=== PATIENT | male | born 1960 | race Two or more races ===

== ENCOUNTER 2020-07-18 09:20 | Emergency (ER) | payer MEDICARE, MEDICAID, SELFPAY ==
[2020-07-18 09:39] VITALS: BP 118/82; PULSE 101; RESP 20; TEMP 36.3; O2SAT 99; BMI 23.5
--- NOTE | 2020-07-18 10:42 | ED.ABDPAIN ---
HPI - Abdominal Pain General Chief Complaint: Abdominal Pain Stated Complaint: abd pain Time Seen by Provider: 07/18/20 10:42 Source: patient Mode of arrival: ambulatory Limitations: no limitations History of Present Illness MD elicited complaint: abdominal pain Pertinent past history: constipation Onset (ago): week(s) (3) Pain Consistency: intermittent Location: diffuse Severity: moderate Quality: cramping Radiation: none Migration to: no migration Exacerbating factors: nothing Relieving factors: nothing Context: other (has not had a good BM in 3 weeks) Associated symptoms: nausea Related Data Previous Rx's Medication Instructions Recorded lactulose 10 g PO DAILY PRN #237 ml 07/18/20 sennosides [senna] 8.6 mg PO BEDTIME PRN #30 cap 07/18/20 Allergies Allergy/AdvReac Type Severity Reaction Status Date / Time No Known Allergies Allergy Unverified 04/21/20 16:21 [No Known Allergies*] Review of Systems Review of Systems Constitutional : No Weight loss, No Fever, No Chills ENT/Mouth : No sore throat, No Rhinorrhea Eyes: No Swelling, No Redness Cardiovascular : No Chest Pain, No SOB, NoEdema Respiratory : No Cough, No Sputum, No Wheezing Gastrointestinal : Positive Nausea, no Vomiting, no Diarrhea, positive abdominal Pain, No Hematochezia, No Melena, pos constipation Genitourinary : No Dysuria, No Urinary Frequency, No Hematuria, No Urgency Musculoskeletal : No joint pain, No Myalgias, No Joint Swelling Skin : No Skin Lesions, No rash Neuro : No Weakness, No Numbness, No Dizziness, No Headache Psych : No Anxiety/Panic, No Depression Heme/Lymph: No Bruising, No Lymphadenopathy Endocrine : No Polyuria, No Polydipsia All other systems reviewed and are negative. Physical Exam Vital Signs: Vital Signs: Last Vital Signs Temp 97.4 F 07/18/20 09:39 Pulse 80 07/18/20 11:25 Resp 14 07/18/20 11:25 BP 100/59 L 07/18/20 11:25 Pulse Ox 98 07/18/20 11:25 Body Mass Index 23.5 Appearance: Alert. Oriented X3. No acute distress. Eyes: Pupils equal, round and reactive to light. ENT: Pharynx normal. Neck: Normal inspection. Neck supple. CVS: Normal heart rate and rhythm. Pulses normal. Respiratory: No respiratory distress. Breath sounds normal. Abdomen: Soft and non-tender. Skin: Skin warm and dry. Normal skin color. Normal skin turgor. Extremities: No lower extremity edema. No calf ttp Neuro: Oriented X 3. No motor deficit. No sensory deficit. Course Course Course Narrative: no WBC count no shift with pain on and off x 3 weeks no RLQ doubt appendicitis will treat with constipation medications MDM - Abdominal Pain MDM Narrative Medical decision making narrative: 59 yo male here with 3 weeks of intermittent abdominal pain and constipation overall exam is benign will need labs, UA, CT scan for constipation/obstruction, dispo per results and findings. Lab Data Result diagrams: 07/18/20 11:10 07/18/20 11:10 Labs: Lab Results 07/18/20 07/18/20 07/18/20 Range/Units 11:10 11:10 11:10 WBC 7.2 (4.8-10.8) X10*3/uL RBC 4.70 (4.60-5.80) X10*6/uL Hgb 13.5 L (14.0-18.0) g/dl Hct 41.9 L (42-52) % MCV 89.1 (80-98) fL MCH 28.7 (27.0-33.0) pg MCHC 32.2 (31.0-36.0) g/dl RDW 12.8 (11.0-16.0) % Plt Count 305 (160-400) X10*3/uL MPV 9.9 (9.4-12.4) fL Immature Gran % (Auto) 0.3 (0.0-0.4) % Neut % (Auto) 64.1 (45-73) % Lymph % (Auto) 21.1 (20-40) % Grainger % (Auto) 12.0 H (2-11) % Eos % (Auto) 2.1 (0-4) % Baso % (Auto) 0.4 (0-2) % Lymph # (Auto) 1.5 (1.2-4.9) X10*3/uL Grainger # (Auto) 0.9 (0.1-1.2) X10*3/uL Eos # (Auto) 0.2 (0.0-0.4) X10*3/uL Baso # (Auto) 0.0 (0.0-0.2) X10*3/uL Abs Immat Gran (auto) 0.02 (0.00-0.03) X10*3/uL Absolute Neuts (auto) 4.6 (2.0-8.3) X10*3/uL Absolute Nucleated RBC 0.000 (0.0-0.012) X10*3/uL Nucleated RBC % (auto) 0.0 (0.0-0.2) /100WBC Hold Blue Top SEE NOTE Sodium 140 (135-145) mmol/L Potassium 4.5 (3.3-5.1) mmol/l Chloride 105 (96-108) mmol/L Carbon Dioxide 27 (22-29) mmol/L Anion Gap 13 (12-20) BUN 12 (9-16) mg/dL Creatinine 0.78 (0.5-1.4) mg/dL Estim Creat Clear Calc 94.1 Estimated GFR > 60 Random Glucose 94 (60-115) mg/dL Calcium 9.6 (8.4-10.2) mg/dL Magnesium (1.6-2.6) mg/dL Total Bilirubin (0.0-1.0) mg/dL Direct Bilirubin (0.0-0.5) mg/dL AST (5-37) U/L ALT (0-40) U/L Alkaline Phosphatase (39-117) U/L Total Protein (6.5-8.0) g/dL Albumin (3.5-5.0) g/dL Lipase (8-78) U/L Urine Color Urine Appearance Urine pH (5.0-8.0) Ur Specific [place] (1.005-1.025) Urine Protein (NEG-TRACE) MG/DL Urine Glucose (UA) (NEG) MG/DL Urine Ketones (NEG) MG/DL Urine Blood (NEG) Urine Nitrite (NEG) Ur Leukocyte Esterase (NEG) Urine RBC (0) /HPF Urine WBC (0-4) /HPF Ur Squamous Epith Cells /LPF Urine Bacteria /LPF Urine Mucus /LPF 07/18/20 07/18/20 Range/Units 11:10 11:29 WBC (4.8-10.8) X10*3/uL RBC (4.60-5.80) X10*6/uL Hgb (14.0-18.0) g/dl Hct (42-52) % MCV (80-98) fL MCH (27.0-33.0) pg MCHC (31.0-36.0) g/dl RDW (11.0-16.0) % Plt Count (160-400) X10*3/uL MPV (9.4-12.4) fL Immature Gran % (Auto) (0.0-0.4) % Neut % (Auto) (45-73) % Lymph % (Auto) (20-40) % Grainger % (Auto) (2-11) % Eos % (Auto) (0-4) % Baso % (Auto) (0-2) % Lymph # (Auto) (1.2-4.9) X10*3/uL Grainger # (Auto) (0.1-1.2) X10*3/uL Eos # (Auto) (0.0-0.4) X10*3/uL Baso # (Auto) (0.0-0.2) X10*3/uL Abs Immat Gran (auto) (0.00-0.03) X10*3/uL Absolute Neuts (auto) (2.0-8.3) X10*3/uL Absolute Nucleated RBC (0.0-0.012) X10*3/uL Nucleated RBC % (auto) (0.0-0.2) /100WBC Hold Blue Top Sodium (135-145) mmol/L Potassium (3.3-5.1) mmol/l Chloride (96-108) mmol/L Carbon Dioxide (22-29) mmol/L Anion Gap (12-20) BUN (9-16) mg/dL Creatinine (0.5-1.4) mg/dL Estim Creat Clear Calc Estimated GFR Random Glucose (60-115) mg/dL Calcium (8.4-10.2) mg/dL Magnesium 1.9 (1.6-2.6) mg/dL Total Bilirubin 0.4 (0.0-1.0) mg/dL Direct Bilirubin < 0.2 (0.0-0.5) mg/dL AST 48 H (5-37) U/L ALT 69 H (0-40) U/L Alkaline Phosphatase 80 (39-117) U/L Total Protein 6.0 L (6.5-8.0) g/dL Albumin 3.4 L (3.5-5.0) g/dL Lipase 28 (8-78) U/L Urine Color YELLOW Urine Appearance CLEAR Urine pH 6.0 (5.0-8.0) Ur Specific [place] 1.025 (1.005-1.025) Urine Protein NEG (NEG-TRACE) MG/DL Urine Glucose (UA) NEG (NEG) MG/DL Urine Ketones NEG (NEG) MG/DL Urine Blood TRACE (NEG) Urine Nitrite NEG (NEG) Ur Leukocyte Esterase NEG (NEG) Urine RBC 0-2 (0) /HPF Urine WBC 0 (0-4) /HPF Ur Squamous Epith Cells NONE /LPF Urine Bacteria NONE /LPF Urine Mucus 2+ /LPF Discharge Plan Discharge Clinical Impression: Constipation Patient Disposition: Home, Self-Care Instructions: Constipation (ED) Additional Instructions: return to ED for any worsening symptoms or concerns Prescriptions: New lactulose 10 gram/15 mL solution 10 g PO DAILY PRN (Reason: constipation) Qty: 237 RF: 0 senna 8.6 mg capsule 8.6 mg PO BEDTIME PRN (Reason: constipation) Qty: 30 RF: 0 Referrals: Physician,Unknown [Primary Care Provider] - 2 days (PCP if not better) [facility] Past Medical History Attestation statement: The following information was validated with the patient. Medical History (Updated 07/18/20 @ 12:44 by Reina Pena DO) Asthma HTN (hypertension) Legally blind Social History Social History (Updated 07/18/20 @ 10:58 by Reina Pena DO) Smoking Status: Current every day smoker Use of substances other than those prescribed or required for medical reasons: No Advance Directives: No Advance Directives Information Provided: Yes
--- NOTE | 2020-07-18 10:50 | CT_ITS ---
EXAMINATION: CT ABDOMEN AND PELVIS WITHOUT CONTRAST CLINICAL INFORMATION: Pain, constipation 3 weeks. COMPARISON: Ultrasound 11/09/2008. TECHNIQUE: Multidetector volumetric imaging was performed from the superior aspect of the liver through the pubic symphysis. Sagittal and coronal reformatted images were obtained on the technologist's workstation. This CT examination was performed using dose optimization techniques as appropriate, variously including the following: *Automated exposure control *Adjustment of mA and/or kV according to patient size (this includes techniques or standardized protocols for targeted exams where dose is matched to indication/reason for exam; i.e. extremities or head) *Use of iterative reconstruction technique DLP: 375 mGy-cm. FINDINGS: LUNG BASES: The visualized lung bases are unremarkable. LIVER, GALLBLADDER, AND BILIARY TREE: No focal lesions. No biliary duct dilatation. Gallbladder appears unremarkable. PANCREAS: Unremarkable. No acute inflammatory changes seen. SPLEEN: Unremarkable. ADRENAL GLANDS: Unremarkable. KIDNEYS AND URETERS: No renal or ureteral calculi. No hydronephrosis. No suspicious lesion seen. BLADDER: Slightly diffuse thick wall. Underdistended. GASTROINTESTINAL TRACT: There is diverticulosis of the descending and sigmoid colon. No definite findings to suggest diverticulitis. The stomach is nondistended. No dilated small bowel loops seen. No evidence of bowel obstruction. There is yypjc-rl-fkknrvdg fecal matter in the large colon. The appendix is coiled, measuring approximately 6 mm in thickness, without obvious inflammatory changes evident. No free fluid. No free air. ABDOMINAL WALL: No significant hernia is appreciated. LYMPH NODES: No lymphadenopathy seen. VASCULAR: Normal caliber aorta. PELVIC VISCERA: Enlarged prostate measuring 5.5 cm transverse. OSSEOUS STRUCTURES: Thoracolumbar spine degeneration. CT/CT abdomen pelvis wo con IMPRESSION: 1. Colonic diverticulosis without evidence of diverticulitis. Estru-ib-wbjkqiep fecal matter in the large colon. 2. Mild diffuse urinary bladder wall thickening, which could be related to underdistention. Correlate with urinalysis to exclude cystitis. 3. Appendix is top normal in thickness without obvious adjacent inflammatory changes. Please clinically correlate. 4. No acute findings otherwise evident in the abdomen or pelvis. 5. Enlarged prostate.
[2020-07-18 11:18] LABS: MANUAL DIFF FLAG NO
[2020-07-18 11:20] LABS: Basophils Percent Auto 0.4 % (0-2); Eosinophils Absolute Auto 0.2 X10*3/uL (0.0-0.4); Eosinophils Percent Auto 2.1 % (0-4); Hematocrit 41.9 % (42-52); Hemoglobin 13.5 g/dl (14.0-18.0); Imm Gran Abs Auto 0.02 X10*3/uL (0.00-0.03); Imm Gran Pct Auto 0.3 % (0.0-0.4); Lymphocytes Absolute Auto 1.5 X10*3/uL (1.2-4.9); Lymphocytes Percent Auto 21.1 % (20-40); Mean Corpuscular HGB Conc 32.2 g/dl (31.0-36.0); Mean Corpuscular Hemoglobin 28.7 pg (27.0-33.0); Mean Corpuscular Volume 89.1 fL (80-98); Mean Platelet Volume 9.9 fL (9.4-12.4); Monocytes Absolute Auto 0.9 X10*3/uL (0.1-1.2); Neutrophils Absolute Auto 4.6 X10*3/uL (2.0-8.3); Neutrophils Percent Auto 64.1 % (45-73); Platelet Count 305 X10*3/uL (160-400); Red Cell Distribution Width 12.8 % (11.0-16.0); White Blood Count 7.2 X10*3/uL (4.8-10.8)
[2020-07-18 11:25] VITALS: BP 100/59; PULSE 80; RESP 14; O2SAT 98
[2020-07-18 11:46] LABS: Glucose Urine UA NEG (NEG); Leukocyte Esterase Urine NEG (NEG); Nitrite Urine NEG (NEG); Specific Gravity - Urine 1.025 (1.005-1.025); Urine Blood TRACE (NEG); Urine Ketones NEG (NEG); Urine Protein NEG (NEG-TRACE)
[2020-07-18 11:49] LABS: Anion Gap 13 (12-20); Blood Urea Nitrogen 12 mg/dL (9-16); Calcium 9.6 mg/dL (8.4-10.2); Carbon Dioxide 27 mmol/L (22-29); Chloride 105 mmol/L (96-108); Creatinine Clr Calc Pharmacy 94.1; Estimated Glomerular Filt Rate > 60; Glucose Random 94 mg/dL (60-115); Potassium 4.5 mmol/l (3.3-5.1); Sodium 140 mmol/L (135-145)
[2020-07-18 11:51] LABS: Appearance Urine CLEAR; Color Urine YELLOW
[2020-07-18 12:01] LABS: RBC Urine 0-2 /HPF (0); WBC Urine 0 /HPF (0-4)
[2020-07-18 12:02] LABS: Mucus Urine 2+ /LPF
[2020-07-18 12:02] LABS: Alanine Aminotransferase 69 U/L (0-40); Albumin Level 3.4 g/dL (3.5-5.0); Alkaline Phosphatase 80 U/L (39-117); Aspartate Amino Transferase 48 U/L (5-37); Bilirubin Direct < 0.2 mg/dL (0.0-0.5); Bilirubin Total 0.4 mg/dL (0.0-1.0); Lipase 28 U/L (8-78); Magnesium 1.9 mg/dL (1.6-2.6)
[2020-07-18 13:04] VITALS: BP 144/79; PULSE 68; RESP 19; O2SAT 99
== END 2020-07-18 13:35 | disposition home or self-care (01) ==
PROVIDERS: Emergency Provider Emergency Medicine
DX: K59.00 Constipation, unspecified (principal); I10 Essential (primary) hypertension; Z79.899 Other long term (current) drug therapy
CPT/HCPCS: 36415; 74176; 80048; 80076; 81001; 83690; 83735; 85025; 99283; 99284

== ENCOUNTER 2020-09-23 15:37 | Emergency (ER) | payer MEDICARE, MEDICAID, SELFPAY ==
--- NOTE | ~2020-09-23 | CT_ITS ---
EXAMINATION: CT ABDOMEN AND PELVIS WITH CONTRAST CLINICAL INFORMATION: Diffuse abdominal pain COMPARISON: 07/18/2020 TECHNIQUE: Multidetector volumetric images were obtained from the superior aspect of the liver through the pubic symphysis following administration 85 mL of Omnipaque 350 intravenous contrast. Sagittal and coronal reformatted images were obtained on the technologist's workstation. Oral contrast: No This CT examination was performed using dose optimization techniques as appropriate, variously including the following: *Automated exposure control *Adjustment of mA and/or kV according to patient size (this includes techniques or standardized protocols for targeted exams where dose is matched to indication/reason for exam; i.e. extremities or head) *Use of iterative reconstruction technique DLP: 341 mGy-cm FINDINGS: LUNG BASES: The visualized lung bases are unremarkable. LIVER, GALLBLADDER, AND BILIARY TREE: The liver is normal in size, shape, and attenuation. No focal hepatic lesion or biliary ductal dilatation is present. The gallbladder is unremarkable with no evidence of radiopaque gallstones, gallbladder wall thickening, or obvious pericholecystic inflammatory changes. A phrygian cap is present. PANCREAS: Unremarkable. SPLEEN: Unremarkable. ADRENAL GLANDS: Unremarkable. KIDNEYS AND URETERS: The kidneys are normal in size, shape, and attenuation. No hydronephrosis, hydroureter, or calculi seen. No perinephric stranding. BLADDER: Symmetric bladder wall thickening may be secondary to outlet obstruction. GASTROINTESTINAL TRACT: There is diffuse gastric wall thickening similar to that noted at the time of the prior CT scan which is probably secondary to underdistention. Diverticular changes are present in the colon without diverticulitis. The small and large bowel are otherwise unremarkable. The appendix is unremarkable. ABDOMINAL WALL: No significant hernia is appreciated. LYMPH NODES: No retroperitoneal lymphadenopathy seen. VASCULAR: Atherosclerotic changes present in the abdominal aorta with calcified and noncalcified plaque. No aneurysm, dissection or stenosis. PELVIC VISCERA: Prostate is markedly enlarged measuring 5.7 x 5.2 x 6.2 cm. Seminal vesicles appear normal. OSSEOUS STRUCTURES: Degenerative changes present in the spine most marked at L5-S1. No bony destructive lesions are seen. CT/CT abdomen pelvis w con IMPRESSION: A cause for the patient's diffuse acute abdominal pain has not been found. Incidental note made of BPH with symmetric bladder wall thickening, colonic diverticulosis without diverticulitis, degenerative changes in the spine and mild atherosclerotic changes present in the aorta.
[2020-09-23 15:43] VITALS: BP 140/82; PULSE 105; RESP 19; TEMP 36.6; O2SAT 99; BMI 23.5
--- NOTE | 2020-09-23 15:59 | ED_ITS ---
HPI - Abdominal Pain General Chief Complaint: Abdominal Pain Stated Complaint: nausea vomiting COVID Time Seen by Provider: 09/23/20 15:48 Source: patient Mode of arrival: ambulatory History of Present Illness HPI narrative: 60-year-old male with a past medical history of asthma, hypertension, legally blind, complaining of epigastric abdominal pain since this morning with associated nausea and vomiting. Admits to similar symptoms in the past in which he was seen and treated in the ED. admits symptoms improved after prior visit in July but returned today. Reports was in contact with COVID- 19 positive infant a couple weeks ago, denies cough, CP/SOB. Denies diarrhea/constipation, dysuria/hematuria, fever MD elicited complaint: abdominal pain Related Data Previous Rx's Medication Instructions Recorded lactulose 10 g PO DAILY PRN #237 ml 07/18/20 sennosides [senna] 8.6 mg PO BEDTIME PRN #30 cap 07/18/20 alum-mag hydroxide-simeth [Maalox 5 ml PO 5XD PRN #30 ml 09/23/20 Advanced] dicyclomine 10 mg PO QID 7 Days #28 cap 09/23/20 famotidine [Pepcid] 20 mg PO DAILY #14 tab 09/23/20 Allergies Allergy/AdvReac Type Severity Reaction Status Date / Time No Known Allergies Allergy Unverified 04/21/20 16:21 [No Known Allergies*] Review of Systems Review of Systems Constitutional: No Weight loss, No Fever, No Chills Cardiovascular: No Chest Pain, No SOB Respiratory: No Cough Gastrointestinal: + Nausea, + Vomiting, No Diarrhea, No Constipation, + Abdominal pain Genitourinary: No irregular bleeding, No Dysuria, No Urinary Frequency, No Hematuria, No Flank Pain Musculoskeletal: No joint pain, No Myalgias, No Joint Swelling Skin: No Skin Lesions, No rash Yes all other systems are reviewed and are negative Physical Exam Vital Signs: Vital Signs: Last Vital Signs Temp 97.8 F 09/23/20 20:00 Pulse 87 09/23/20 20:00 Resp 21 H 09/23/20 20:00 BP 105/57 L 09/23/20 20:00 Pulse Ox 98 09/23/20 20:00 Body Mass Index 23.5 Const: General: cooperative, healthy appearing, comfortable, no acute distress and anxious Orientation/consciousness: patient oriented x3 Limitations: no limitations HENMT: Head: Yes normal to inspection Ears: hearing grossly normal bilaterally General nose exam: Normal external nose present Face and sinus: Yes normal facial exam Eyes: General: appearance normal, both eyes and all related structures EOM: EOMs intact bilaterally Neck: Neck: Yes normal visual inspection Resp: Effort & Inspection: normal respiratory effort Auscultation: clear to auscultation bilaterally, no rales, no rhonchi and no wheezes Cardio: Rate: regular rate Heart sounds: S1 normal heart sound present and S2 normal heart sound present GI: Inspection: Yes normal to inspection Palpation (GI): Soft to palpation, Tenderness to palpation present (GI) in the epigastrum, in the LLQ and in the RLQ, no guarding and not rigid : General: Yes no CVA tenderness Back/Spine/Pelvis: Back: no CVA tenderness Skin: Rashes: no rashes Wounds: no wounds Neuro: General: patient oriented x3 Extrem: General: Yes normal to inspection Course Course Course Narrative: -no leukocytosis, H&H stable, labs otherwise unremarkable, UA negative -COVID-[address] abdomen pelvis w con IMPRESSION: A cause for the patient's diffuse acute abdominal pain has not been found. Incidental note made of BPH with symmetric bladder wall thickening, colonic diverticulosis without diverticulitis, degenerative changes in the spine and mild atherosclerotic changes present in the aorta. >> 2057--on re-evaluation patient reports symptomatic improvement in the ED. Results discussed. Discussed worrisome signs and symptoms and strict return precautions. Recommended GI follow-up. He verbalized understanding feel safe for discharge home MDM - Abdominal Pain MDM Narrative Medical decision making narrative: 60-year-old male with a past medical history of asthma, hypertension, legally blind, complaining of epigastric abdominal pain since this morning with associated nausea and vomiting. On mildly tachycardic, NAD/nontoxic, abdomen soft diffusely tender, no rebound or guarding. Labs/CT reviewed from July where pt was Dx with constipation. Concern for pancreatitis vs cholecystitis vs appendicitis or diverticulitis. Lower concern for UTI/pyelo or renal stone. Lower concern for COVID-19/viral syndrome or PNA Plan: Labs, UA, CTAP, Sx Tx, Reassess Medical Records Attestation: I reviewed the patient's medical records. Lab Data Attestation: I reviewed the patient's lab results. Result diagrams: 09/23/20 16:34 09/23/20 16:34 Labs: Lab Results 09/23/20 09/23/20 09/23/20 Range/Units 16:34 16:34 16:34 WBC 7.9 (4.8-10.8) X10*3/uL RBC 4.53 L (4.60-5.80) X10*6/uL Hgb 12.8 L (14.0-18.0) g/dl Hct 39.0 L (42-52) % MCV 86.1 (80-98) fL MCH 28.3 (27.0-33.0) pg MCHC 32.8 (31.0-36.0) g/dl RDW 13.6 (11.0-16.0) % Plt Count 317 (160-400) X10*3/uL MPV 9.6 (9.4-12.4) fL Immature Gran % (Auto) 0.3 (0.0-0.4) % Neut % (Auto) 72.2 (45-73) % Lymph % (Auto) 15.5 L (20-40) % Harney % (Auto) 10.6 (2-11) % Eos % (Auto) 1.0 (0-4) % Baso % (Auto) 0.4 (0-2) % Lymph # (Auto) 1.2 (1.2-4.9) X10*3/uL Harney # (Auto) 0.8 (0.1-1.2) X10*3/uL Eos # (Auto) 0.1 (0.0-0.4) X10*3/uL Baso # (Auto) 0.0 (0.0-0.2) X10*3/uL Abs Immat Gran (auto) 0.02 (0.00-0.03) X10*3/uL Absolute Neuts (auto) 5.7 (2.0-8.3) X10*3/uL Absolute Nucleated RBC 0.000 (0.0-0.012) X10*3/uL Nucleated RBC % (auto) 0.0 (0.0-0.2) /100WBC Hold Blue Top SEE NOTE Sodium 138 (135-145) mmol/L Potassium 4.1 (3.3-5.1) mmol/L Chloride 106 (96-108) mmol/L Carbon Dioxide 22 (22-29) mmol/L Anion Gap 14 (12-20) BUN 13 (9-16) mg/dL Creatinine 0.70 (0.5-1.4) mg/dL Estim Creat Clear Calc 103.6 Estimated GFR > 60 Random Glucose 88 (60-115) mg/dL Calcium 8.5 D (8.4-10.2) mg/dL Magnesium 1.7 (1.6-2.6) mg/dL Total Bilirubin 0.6 (0.0-1.0) mg/dL Direct Bilirubin 0.3 (0.0-0.5) mg/dL AST 22 D (5-37) U/L ALT 24 (0-40) U/L Alkaline Phosphatase 74 (39-117) U/L Total Protein 4.9 L (6.5-8.0) g/dL Albumin 3.0 L (3.5-5.0) g/dL Lipase 24 (8-78) U/L Urine Color Urine Appearance Urine pH (5.0-8.0) Ur Specific [place] (1.005-1.025) Urine Protein (NEG-TRACE) MG/DL Urine Glucose (UA) (NEG) MG/DL Urine Ketones (NEG) MG/DL Urine Blood (NEG) Urine Nitrite (NEG) Ur Leukocyte Esterase (NEG) Urine RBC (0) /HPF Urine WBC (0-4) /HPF Ur Squamous Epith Cells /LPF Urine Bacteria /LPF Hyaline Casts /LPF Urine Mucus /LPF Urine Opiates Screen (Not Detect) Ur Barbiturates Screen (Not Detect) Ur Phencyclidine Scrn (Not Detect) Ur Amphetamines Screen (Not Detect) U Benzodiazepines Scrn (Not Detect) Urine Cocaine Screen (Not Detect) U Marijuana (THC) Screen (Not Detect) COVID-19 (TRU) (Negative) COVID-19 Clin Com 09/23/20 09/23/20 09/23/20 Range/Units 16:34 17:46 17:46 WBC (4.8-10.8) X10*3/uL RBC (4.60-5.80) X10*6/uL Hgb (14.0-18.0) g/dl Hct (42-52) % MCV (80-98) fL MCH (27.0-33.0) pg MCHC (31.0-36.0) g/dl RDW (11.0-16.0) % Plt Count (160-400) X10*3/uL MPV (9.4-12.4) fL Immature Gran % (Auto) (0.0-0.4) % Neut % (Auto) (45-73) % Lymph % (Auto) (20-40) % Harney % (Auto) (2-11) % Eos % (Auto) (0-4) % Baso % (Auto) (0-2) % Lymph # (Auto) (1.2-4.9) X10*3/uL Harney # (Auto) (0.1-1.2) X10*3/uL Eos # (Auto) (0.0-0.4) X10*3/uL Baso # (Auto) (0.0-0.2) X10*3/uL Abs Immat Gran (auto) (0.00-0.03) X10*3/uL Absolute Neuts (auto) (2.0-8.3) X10*3/uL Absolute Nucleated RBC (0.0-0.012) X10*3/uL Nucleated RBC % (auto) (0.0-0.2) /100WBC Hold Blue Top Sodium (135-145) mmol/L Potassium (3.3-5.1) mmol/L Chloride (96-108) mmol/L Carbon Dioxide (22-29) mmol/L Anion Gap (12-20) BUN (9-16) mg/dL Creatinine (0.5-1.4) mg/dL Estim Creat Clear Calc Estimated GFR Random Glucose (60-115) mg/dL Calcium (8.4-10.2) mg/dL Magnesium (1.6-2.6) mg/dL Total Bilirubin (0.0-1.0) mg/dL Direct Bilirubin (0.0-0.5) mg/dL AST (5-37) U/L ALT (0-40) U/L Alkaline Phosphatase (39-117) U/L Total Protein (6.5-8.0) g/dL Albumin (3.5-5.0) g/dL Lipase (8-78) U/L Urine Color YELLOW Urine Appearance CLEAR Urine pH 6.0 (5.0-8.0) Ur Specific [place] 1.020 (1.005-1.025) Urine Protein NEG (NEG-TRACE) MG/DL Urine Glucose (UA) NEG (NEG) MG/DL Urine Ketones 5 (NEG) MG/DL Urine Blood TRACE (NEG) Urine Nitrite NEG (NEG) Ur Leukocyte Esterase NEG (NEG) Urine RBC 0-2 (0) /HPF Urine WBC 0 (0-4) /HPF Ur Squamous Epith Cells NONE /LPF Urine Bacteria NONE /LPF Hyaline Casts 1-4 /LPF Urine Mucus 1+ /LPF Urine Opiates Screen Not Detected (Not Detect) Ur Barbiturates Screen Not Detected (Not Detect) Ur Phencyclidine Scrn Not Detected (Not Detect) Ur Amphetamines Screen Not Detected (Not Detect) U Benzodiazepines Scrn Not Detected (Not Detect) Urine Cocaine Screen Not Detected (Not Detect) U Marijuana (THC) Screen Not Detected (Not Detect) COVID-19 (TRU) Negative (Negative) COVID-19 Clin Com See Note Discharge Plan Discharge Clinical Impression: Abdominal pain Patient Disposition: Home, Self-Care Instructions: Abdominal Pain (ED) Additional Instructions: Your blood work and CT scan were reassuring today in the ED. Pepcid and Maalox will help with acid reduction in your stomach. Bentyl well help with stomach spasming Make sure you are staying hydrated at home. You should follow-up with a GI specialist If her symptoms persist or worsen, fever, persistent nausea/vomiting, bloody diarrhea return to the ED Prescriptions: New famotidine [Pepcid] 20 mg tablet 20 mg PO DAILY Qty: 14 RF: 0 alum-mag hydroxide-simeth [Maalox Advanced] 200-200-20 mg/5 mL suspension 5 ml PO 5XD PRN (Reason: dyspepsia) Qty: 30 RF: 0 dicyclomine 10 mg capsule 10 mg PO QID 7 Days Qty: 28 RF: 0 No Action lactulose 10 gram/15 mL solution 10 g PO DAILY PRN (Reason: constipation) Qty: 237 RF: 0 senna 8.6 mg capsule 8.6 mg PO BEDTIME PRN (Reason: constipation) Qty: 30 RF: 0 Referrals: Heather Carvajal MD [Physician] - 5 days [facility] Past Medical History Attestation statement: The following information was validated with the patient. Medical History (Updated 09/23/20 @ 20:59 by JOANNA Melendez) Asthma HTN (hypertension) Legally blind Social History Social History (Updated 07/18/20 @ 10:58 by Reina Pena DO) Smoking Status: Current every day smoker Smoked in Last 30 Days: Yes Use of substances other than those prescribed or required for medical reasons: No Advance Directives: No Advance Directives Information Provided: Yes
[2020-09-23] MEDS: Ketorolac Tromethamine 15 MG/ML VIAL IVPUSH (16:40)
[2020-09-23] MEDS: 0.9 % Sodium Chloride 1,000 ML 999 ML IVCONT (16:40)
[2020-09-23] MEDS: ondansetron HCL 4 MG/2 ML VIAL IVPUSH (16:40)
[2020-09-23] MEDS: Lidocaine HCl Viscous 2 % 15 ML SOLUTION MUCOUS MEM (16:40)
[2020-09-23 16:42] LABS: MANUAL DIFF FLAG NO
[2020-09-23 16:43] LABS: Basophils Percent Auto 0.4 % (0-2); Eosinophils Absolute Auto 0.1 X10*3/uL (0.0-0.4); Hemoglobin 12.8 g/dl (14.0-18.0); Imm Gran Abs Auto 0.02 X10*3/uL (0.00-0.03); Imm Gran Pct Auto 0.3 % (0.0-0.4); Lymphocytes Absolute Auto 1.2 X10*3/uL (1.2-4.9); Lymphocytes Percent Auto 15.5 % (20-40); Mean Corpuscular HGB Conc 32.8 g/dl (31.0-36.0); Mean Corpuscular Hemoglobin 28.3 pg (27.0-33.0); Mean Corpuscular Volume 86.1 fL (80-98); Mean Platelet Volume 9.6 fL (9.4-12.4); Monocytes Absolute Auto 0.8 X10*3/uL (0.1-1.2); Monocytes Percent Auto 10.6 % (2-11); Neutrophils Absolute Auto 5.7 X10*3/uL (2.0-8.3); Neutrophils Percent Auto 72.2 % (45-73); Platelet Count 317 X10*3/uL (160-400); Red Blood Count 4.53 X10*6/uL (4.60-5.80); Red Cell Distribution Width 13.6 % (11.0-16.0); White Blood Count 7.9 X10*3/uL (4.8-10.8)
[2020-09-23] MEDS: Famotidine/PF 20 MG/2 ML VIAL IVPUSH (16:47)
[2020-09-23 17:01] LABS: COVID-19 Test Negative (Negative); IDNOW Serial# 9DD0AD1C
[2020-09-23 17:24] VITALS: BP 109/56; PULSE 93; RESP 21; O2SAT 99
[2020-09-23 17:59] LABS: Glucose Urine UA NEG (NEG); Leukocyte Esterase Urine NEG (NEG); Nitrite Urine NEG (NEG); Urine Blood TRACE (NEG); Urine Ketones 5 MG/DL (NEG); Urine Protein NEG (NEG-TRACE)
[2020-09-23 18:01] LABS: Appearance Urine CLEAR; Color Urine YELLOW
[2020-09-23 18:23] LABS: Mucus Urine 1+ /LPF; RBC Urine 0-2 /HPF (0); WBC Urine 0 /HPF (0-4)
[2020-09-23 18:25] LABS: Amphetamine Screen Urine Not Detected (Not Detect); Barbiturates, Urine Not Detected (Not Detect); Benzodiazepines Screen Urine Not Detected (Not Detect); Cannabinoid Screen Urine Not Detected (Not Detect); Cocaine Screen Urine Not Detected (Not Detect); Opiate Screen Urine Not Detected (Not Detect); Phencyclidine Screen Urine Not Detected (Not Detect)
[2020-09-23 18:34] LABS: Alanine Aminotransferase 24 U/L (0-40); Alkaline Phosphatase 74 U/L (39-117); Anion Gap 14 (12-20); Aspartate Amino Transferase 22 U/L (5-37); Bilirubin Direct 0.3 mg/dL (0.0-0.5); Bilirubin Total 0.6 mg/dL (0.0-1.0); Blood Urea Nitrogen 13 mg/dL (9-16); Calcium 8.5 mg/dL (8.4-10.2); Carbon Dioxide 22 mmol/L (22-29); Chloride 106 mmol/L (96-108); Creatinine Clr Calc Pharmacy 103.6; Estimated Glomerular Filt Rate > 60; Glucose Random 88 mg/dL (60-115); Lipase 24 U/L (8-78); Magnesium 1.7 mg/dL (1.6-2.6); Potassium 4.1 mmol/L (3.3-5.1); Sodium 138 mmol/L (135-145); Total Protein 4.9 g/dL (6.5-8.0)
[2020-09-23 20:00] VITALS: BP 105/57; PULSE 87; RESP 21; TEMP 36.6; O2SAT 98
[2020-09-23] MEDS: iohexoL 350 MG/ML 100 ML INFUS..BTL IV (20:26)
[2020-09-23 22:00] VITALS: BP 120/74; PULSE 84; RESP 16; TEMP 36.6; O2SAT 99
--- NOTE | 2020-09-23 22:11 | PC.NURSE ---
Spoke with Randall (caregiver) on phone at [phone]. To be picked up by Randall within next 10 minutes approximately.
== END 2020-09-23 22:54 | disposition home or self-care (01) ==
PROVIDERS: Physician Assistant; Emergency Provider Internal Medicine
DX: R10.9 Unspecified abdominal pain (principal); R11.2 Nausea with vomiting, unspecified; Z79.899 Other long term (current) drug therapy; Z20.822 Contact with and (suspected) exposure to COVID-19; F17.200 Nicotine dependence, unspecified, uncomplicated; Z71.6 Tobacco abuse counseling
CPT/HCPCS: 36415; 74177; 80048; 80076; 80307; 81001; 83690; 83735; 85025; 87635; 96361; 96374; 96375; 99284; J1885; J2405; Q9967

== ENCOUNTER 2022-02-27 09:16 | Outpatient (REF) | payer MEDICARE, MEDICAID, SELFPAY ==
[2022-02-27 11:35] LABS: MANUAL DIFF FLAG NO
[2022-02-27 11:42] LABS: Basophils Percent Auto 0.7 % (0-2); Eosinophils Absolute Auto 0.2 X10*3/uL (0.0-0.4); Eosinophils Percent Auto 4.1 % (0-4); Hematocrit 41.7 % (42.0-52.0); Hemoglobin 13.7 g/dl (14.0-18.0); Imm Gran Abs Auto 0.01 X10*3/uL (0.00-0.03); Imm Gran Pct Auto 0.2 % (0.0-0.4); Lymphocytes Percent Auto 34.8 % (20-40); Mean Corpuscular HGB Conc 32.9 g/dl (31.0-36.0); Mean Corpuscular Hemoglobin 30.1 pg (27.0-33.0); Mean Corpuscular Volume 91.6 fL (80.0-98.0); Monocytes Absolute Auto 0.7 X10*3/uL (0.1-1.2); Monocytes Percent Auto 12.3 % (2-11); Neutrophils Absolute Auto 2.8 x10*3/uL (2.0-8.3); Neutrophils Percent Auto 47.9 % (45-73); Platelet Count 327 X10*3/uL (160-400); Red Blood Count 4.55 X10*6/uL (4.60-5.80); Red Cell Distribution Width 12.6 % (11.0-16.0); White Blood Count 5.9 X10*3/uL (4.8-10.8)
[2022-02-27 12:11] LABS: Alanine Aminotransferase 24 U/L (0-40); Albumin Level 4.3 g/dL (3.5-5.0); Alkaline Phosphatase 88 U/L (39-117); Anion Gap 11 (12-20); Aspartate Amino Transferase 17 U/L (5-37); Bilirubin Total 0.4 mg/dL (0.0-1.0); Blood Urea Nitrogen 15 mg/dL (9-16); Calcium 9.7 mg/dL (8.4-10.2); Carbon Dioxide 28 mmol/L (22-29); Chloride 107 mmol/L (96-108); Cholesterol 169 mg/dL; Estimated Glomerular Filt Rate > 60; Glucose Fasting 91 mg/dL (60-99); HDL Cholesterol 37 mg/dL; LDL Cholesterol Calculated 118 mg/dl; Potassium 4.7 mmol/L (3.3-5.1); Sodium 141 mmol/L (135-145); Total Protein 6.8 g/dL (6.5-8.0); Triglycerides 71 mg/dL
[2022-02-27 12:12] LABS: TSH reflex Free T4 < 0.01 uIU/mL (0.32-4.0)
[2022-03-04 13:01] LABS: Vitamin D 25-OH, D2 <4 ng/mL; Vitamin D 25-OH, D3 19 ng/mL; Vitamin D 25-OH, Total 19 ng/mL (30-100)
== END 2022-02-27 09:17 | disposition home or self-care (01) ==
LOC: HO.HMGCLDS 09:16
PROVIDERS: PCP Internal Medicine; Visit Provider Internal Medicine
DX: E05.90 Thyrotoxicosis, unspecified without thyrotoxic crisis or storm (principal); H54.8 Legal blindness, as defined in USA; I10 Essential (primary) hypertension; J45.20 Mild intermittent asthma, uncomplicated; R00.2 Palpitations; Z76.89 Persons encountering health services in other specified circumstances
CPT/HCPCS: 36415; 80053; 80061; 82306; 84439; 84443; 85025

== ENCOUNTER 2022-08-29 13:52 | Outpatient (REF) | payer MEDICARE, MEDICAID, SELFPAY ==
[2022-08-29 16:34] LABS: MANUAL DIFF FLAG NO
[2022-08-29 16:43] LABS: Basophils Absolute Auto 0.1 X10*3/uL (0.0-0.2); Eosinophils Absolute Auto 0.4 X10*3/uL (0.0-0.4); Eosinophils Percent Auto 5.5 % (0-4); Hematocrit 42.9 % (42.0-52.0); Hemoglobin 14.1 g/dl (14.0-18.0); Imm Gran Abs Auto 0.02 X10*3/uL (0.00-0.03); Imm Gran Pct Auto 0.3 % (0.0-0.4); Lymphocytes Absolute Auto 1.5 X10*3/uL (1.2-4.9); Lymphocytes Percent Auto 19.6 % (20-40); Mean Corpuscular HGB Conc 32.9 g/dl (31.0-36.0); Mean Corpuscular Hemoglobin 31.8 pg (27.0-33.0); Mean Corpuscular Volume 96.8 fL (80.0-98.0); Mean Platelet Volume 9.8 fL (9.4-12.4); Monocytes Absolute Auto 0.8 X10*3/uL (0.1-1.2); Monocytes Percent Auto 10.6 % (2-11); Neutrophils Absolute Auto 4.8 x10*3/uL (2.0-8.3); Platelet Count 351 X10*3/uL (160-400); Red Blood Count 4.43 X10*6/uL (4.60-5.80); Red Cell Distribution Width 12.9 % (11.0-16.0); White Blood Count 7.6 X10*3/uL (4.8-10.8)
[2022-08-29 16:54] LABS: Alanine Aminotransferase 16 U/L (0-40); Albumin Level 4.4 g/dL (3.5-5.0); Anion Gap 13 (12-20); Aspartate Amino Transferase 18 U/L (5-37); Bilirubin Total 0.4 mg/dL (0.0-1.0); Blood Urea Nitrogen 18 mg/dL (9-16); Calcium 10.1 mg/dL (8.4-10.2); Carbon Dioxide 29 mmol/L (22-29); Chloride 104 mmol/L (96-108); Estimated Glomerular Filt Rate > 60; Glucose Random 92 mg/dL (60-115); Iron 127 mcg/dL (45-160); Percent Iron Saturation 38 % (15-50); Potassium 3.6 mmol/L (3.3-5.1); Sodium 142 mmol/L (135-145); Total Iron Binding Capacity 331 mcg/dL (228-428); Unsaturated Iron Binding 204 ug/dL
[2022-08-29 17:06] LABS: Alkaline Phosphatase 75 U/L (39-117)
[2022-08-29 17:16] LABS: Vitamin B12 442 pg/mL (200-900)
== END 2022-08-29 13:53 | disposition home or self-care (01) ==
LOC: HO.HMGCLDS 13:52
PROVIDERS: PCP Internal Medicine; Visit Provider Internal Medicine
DX: E05.90 Thyrotoxicosis, unspecified without thyrotoxic crisis or storm (principal); H54.8 Legal blindness, as defined in USA; I10 Essential (primary) hypertension; J45.20 Mild intermittent asthma, uncomplicated; M79.671 Pain in right foot; M79.672 Pain in left foot; D64.9 Anemia, unspecified
CPT/HCPCS: 36415; 80053; 82607; 83540; 85025

== ENCOUNTER 2022-12-28 12:10 | Outpatient (REF) | payer MEDICARE, MEDICAID, SELFPAY ==
[2022-12-28 13:57] LABS: MANUAL DIFF FLAG NO
[2022-12-28 14:03] LABS: Basophils Absolute Auto 0.1 X10*3/uL (0.0-0.2); Basophils Percent Auto 1.1 % (0-2); Eosinophils Absolute Auto 0.2 X10*3/uL (0.0-0.4); Eosinophils Percent Auto 3.5 % (0-4); Hematocrit 43.2 % (42.0-52.0); Hemoglobin 14.1 g/dl (14.0-18.0); Imm Gran Abs Auto 0.02 X10*3/uL (0.00-0.03); Imm Gran Pct Auto 0.3 % (0.0-0.4); Lymphocytes Absolute Auto 1.5 X10*3/uL (1.2-4.9); Lymphocytes Percent Auto 23.1 % (20-40); Mean Corpuscular HGB Conc 32.6 g/dl (31.0-36.0); Mean Corpuscular Hemoglobin 30.7 pg (27.0-33.0); Mean Corpuscular Volume 93.9 fL (80.0-98.0); Mean Platelet Volume 9.8 fL (9.4-12.4); Monocytes Absolute Auto 0.8 X10*3/uL (0.1-1.2); Monocytes Percent Auto 12.9 % (2-11); Neutrophils Absolute Auto 3.9 x10*3/uL (2.0-8.3); Neutrophils Percent Auto 59.1 % (45-73); Platelet Count 335 X10*3/uL (160-400); White Blood Count 6.5 X10*3/uL (4.8-10.8)
[2022-12-28 14:29] LABS: Alanine Aminotransferase 17 U/L (0-40); Albumin Level 4.2 g/dL (3.5-5.0); Alkaline Phosphatase 70 U/L (39-117); Anion Gap 11 (12-20); Aspartate Amino Transferase 15 U/L (5-37); Bilirubin Total 0.3 mg/dL (0.0-1.0); Blood Urea Nitrogen 14 mg/dL (9-16); Calcium 10.3 mg/dL (8.4-10.2); Carbon Dioxide 30 mmol/L (22-29); Chloride 106 mmol/L (96-108); Estimated Glomerular Filt Rate > 60; Glucose Random 69 mg/dL (60-115); Potassium 4.1 mmol/L (3.3-5.1); Sodium 143 mmol/L (135-145); Total Protein 6.6 g/dL (6.5-8.0)
[2022-12-28 14:35] LABS: TSH reflex Free T4 0.66 uIU/mL (0.32-4.0)
[2022-12-31 05:28] LABS: LDL Cholesterol Direct 131 mg/dL (<100)
== END 2022-12-28 12:11 | disposition home or self-care (01) ==
LOC: HO.HMGCLDS 12:10
PROVIDERS: PCP Internal Medicine; Visit Provider Internal Medicine
DX: I10 Essential (primary) hypertension (principal); J45.20 Mild intermittent asthma, uncomplicated; D64.9 Anemia, unspecified; E03.8 Other specified hypothyroidism
CPT/HCPCS: 36415; 80053; 83721; 84443; 85025

== ENCOUNTER 2023-05-07 09:13 | Outpatient (REF) | payer MEDICARE, MEDICAID, SELFPAY ==
[2023-05-07 11:48] LABS: MANUAL DIFF FLAG NO
[2023-05-07 12:15] LABS: Basophils Absolute Auto 0.1 X10*3/uL (0.0-0.2); Basophils Percent Auto 1.2 % (0-2); Eosinophils Absolute Auto 0.4 X10*3/uL (0.0-0.4); Eosinophils Percent Auto 5.3 % (0-4); Hematocrit 43.5 % (42.0-52.0); Hemoglobin 14.2 g/dl (14.0-18.0); Imm Gran Abs Auto 0.02 X10*3/uL (0.00-0.03); Imm Gran Pct Auto 0.3 % (0.0-0.4); Lymphocytes Absolute Auto 1.7 X10*3/uL (1.2-4.9); Lymphocytes Percent Auto 25.8 % (20-40); Mean Corpuscular HGB Conc 32.6 g/dl (31.0-36.0); Mean Corpuscular Hemoglobin 31.2 pg (27.0-33.0); Mean Corpuscular Volume 95.6 fL (80.0-98.0); Monocytes Absolute Auto 0.8 X10*3/uL (0.1-1.2); Monocytes Percent Auto 11.5 % (2-11); Neutrophils Absolute Auto 3.7 x10*3/uL (2.0-8.3); Neutrophils Percent Auto 55.9 % (45-73); Platelet Count 310 X10*3/uL (160-400); Red Blood Count 4.55 X10*6/uL (4.60-5.80); Red Cell Distribution Width 13.2 % (11.0-16.0); White Blood Count 6.6 X10*3/uL (4.8-10.8)
[2023-05-07 12:26] LABS: Alanine Aminotransferase 13 U/L (0-40); Albumin Level 4.3 g/dL (3.5-5.0); Alkaline Phosphatase 68 U/L (39-117); Anion Gap 10 (12-20); Aspartate Amino Transferase 19 U/L (5-37); Bilirubin Total 0.4 mg/dL (0.0-1.0); Blood Urea Nitrogen 12 mg/dL (9-16); Calcium 9.5 mg/dL (8.4-10.2); Carbon Dioxide 27 mmol/L (22-29); Chloride 105 mmol/L (96-108); Estimated Glomerular Filt Rate > 60; Glucose Random 89 mg/dL (60-115); Potassium 3.6 mmol/L (3.3-5.1); Sodium 138 mmol/L (135-145); Total Protein 7.2 g/dL (6.5-8.0)
[2023-05-07 12:49] LABS: TSH reflex Free T4 0.52 uIU/mL (0.32-4.0)
[2023-05-07 13:11] LABS: Vitamin B12 466 pg/mL (200-900)
[2023-05-09 06:58] LABS: LDL Cholesterol Direct 121 mg/dL (<100)
[2023-05-13 13:59] LABS: Vitamin D 25-OH, D2 <4 ng/mL; Vitamin D 25-OH, D3 32 ng/mL; Vitamin D 25-OH, Total 32 ng/mL (30-100)
== END 2023-05-07 09:14 | disposition home or self-care (01) ==
LOC: HO.HMGCLDS 09:13
PROVIDERS: PCP Internal Medicine; Visit Provider Internal Medicine
DX: R00.2 Palpitations (principal); I10 Essential (primary) hypertension; H54.8 Legal blindness, as defined in USA; D64.9 Anemia, unspecified; E03.8 Other specified hypothyroidism
CPT/HCPCS: 36415; 80053; 82306; 82607; 83721; 84443; 85025

== ENCOUNTER 2023-05-14 09:52 | Outpatient (AMB) | payer MEDICARE, MEDICAID, SELFPAY ==
[2023-05-14 09:57] VITALS: BP 164/86; PULSE 81; O2SAT 98; BMI 25.7
--- NOTE | 2023-05-14 09:57 | MHC.PC.OV ---
Vital Signs 05/14/23 09:57 Height 5 ft 7 in Weight 164 lb 4 oz BMI 25.7 BP 164/86 H Blood Pressure Location Rt brachial Position Sitting Pulse 81 Pulse Source Pulse Oximeter Pulse Oximetry (%) 98 Oxygen Delivery Method Room Air Intake Visit Reasons: 3 Month follow up Allergies No Known Allergies [No Known Allergies*] Allergy (Verified 05/14/23 09:58) Medication List - Last Reconciled 05/14/23 by Florecita Bettencourt MD calcium carbonate-vitamin D3 600 mg-10 mcg (400 unit) 1 tab PO BID cholecalciferol (vitamin D3) 50 mcg PO DAILY 90 days ibuprofen 800 mg PO ONCE PRN 90 days levothyroxine 100 mcg PO DAILY losartan 25 mg PO DAILY montelukast 10 mg PO DAILY propranolol 20 mg PO TID spironolactone 50 mg PO DAILY 90 days Tobacco use date assessed: 05/14/23 Dental Screening Dental Screen Date: 05/14/23 Did you have a dental visit in the last 12 months?: Yes Did you have a dental problem in the last 6 months where you did not have access to dental care?: No Was dental information given to patient?: Patient has dentist HPI 3 Month follow up HPI Details Blood pressure is elevated in 160s-patient says that he gets nervous when he comes to doctor's office He has visiting nurse come or twice a week to check blood pressure and he tells me that nurse all his daily blood pressure is good She is coming tomorrow I have told him to have a nurse call me with the blood pressure reading. He is on losartan 25 mg and spironolactone 50 mg Labs done recently reviewed He has seen target protection specialist and was started on gabapentin 300 b.i.d. which has helped the patient is pain is better. I have told him that after the next follow-up if needed I can take over the gabapentin script. He is on levothyroxine 100 mcg his TSH level is within normal limit Allergies are stable with montelukast 10 mg Continue propranolol [facility] Medical History Legally blind Asthma HTN (hypertension) Social History Housing: Apartment Patient Tobacco Use Status: Current someday Tobacco user Cigarettes Per Day: 2 e-Cigarette/Vaping Use: Never Used service: No Current occupational status: disabled Cognitive needs: No Hearing needs: No Vision needs: 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) Questionnaire PHQ-9 Over the last 2 weeks, how often have you been bothered by any of the following problems? 1. Little interest or pleasure in doing things: not at all 2. Feeling down, depressed, or hopeless: not at all 3. Trouble falling or staying asleep, or sleeping too much: not at all 4. Feeling tired or having little energy: not at all 5. Poor appetite or overeating: not at all 6. Feeling bad about yourself - or that you are a failure or have let yourself or your family down: not at all 7. Trouble concentrating on things, such as reading the newspaper or watching television: not at all 8. Moving or speaking so slowly that other people could have noticed. Or the opposite - being so fidgety or restless that you have been moving around a lot more than usual: not at all 9. Thoughts that you would be better off or of hurting yourself in some way: not at all Total score: 0 Depression Screening Interpretation: Negative Depression Screening Done: Yes 15404 - PHQ-9 Billing: Yes Source: Developed by Drs. Tarun Chance, Bethany Saucedo, Rodriguez Martin and colleagues, with an educational chioma from [employer]. Thrive Questionnaire Date Thrive assessed: 05/14/23 I am a: Patient What is your living situation today?: I have a steady place to live Within the past 12 months, did the food you bought not last and you didn't have the money to get more?: Never true Within the past 12 months, did you worry whether your food would run out before you got money to buy more?: Never true Do you have trouble paying for medicines?: No Do you have trouble getting transportation to medical appointments?: No Do you have trouble paying your heating and electricity bill?: No Do you have trouble taking care of your child, family member or friend?: Yes Do you have trouble with day-to-day activities such as bathing, preparing meals, shopping, managing finances, etc.?: Yes Are you currently unemployed and looking for a job?: No Are you interested in more education?: No AUDIT C Alcohol Use Questionnaire (AUDIT-C) 1. How often do you have a drink containing alcohol?: Never 3. How often do you have six or more drinks on one occasion?: Never Total Score: 0 Score Reviewed/Action Taken: Yes MINNIE-7 AMB Questionnaire MINNIE-7 Date MINNIE - 7 assessed: 05/14/23 Feeling nervous, anxious, or on edge: 0 = Not at all Not being able to stop or control worryin = Not at all Worrying too much about different things: 0 = Not at all Trouble relaxin = Not at all Being so restless that it is hard to sit still: 0 = Not at all Becoming easily annoyed or irritable: 0 = Not at all Feeling afraid as if something awful might happen: 0 = Not at all Total MINNIE-7 score (0-4 normal; 5-9 mild; 10-14 moderate; 15-21 severe): 0 Source: Developed by Drs. Tarun Chance, Bethany Saucedo, Rodriguez Martin and colleagues, with an educational chioma from [employer]. MINNIE-7 Assessment Billing MINNIE-7 Assessment Tool: MINNIE-7 Assessment 44699 Review of Systems Const Denies chills and Denies fever(s) ENT Denies epistaxis and Denies nasal discharge Card Denies chest pain Resp Denies chest congestion, Denies cough and Denies hemoptysis GI Denies diarrhea and Denies nausea Skin/Breast Denies rash Neuro Reports no additional complaints Psych Reports no additional complaints Endo Reports no additional complaints Physical exam (Primary Care) Vital Signs: Last Vital Signs Pulse 81 05/14/23 09:57 BP 164/86 H 05/14/23 09:57 Pulse Ox 98 05/14/23 09:57 Oxygen Delivery Method Room Air 05/14/23 09:57 BMI result Body Mass Index 25.7 Tobacco/Smoking Status: Tobacco use Status Tobacco use date assessed 05/14/23 05/14/23 10:01 Patient Tobacco Use Status Current someday Tobacco 05/14/23 10:01 e-Cigarette/Vaping Use Never Used 05/14/23 10:01 PHQ-9: PHQ-9 Score PHQ-9: Total score 0 05/14/23 10:10 Depression Screening Interpretation: Negative Thrive Assessment: Date of Thrive Assessment Date Thrive assessed 05/14/23 05/14/23 10:10 Const General: cooperative, comfortable and no acute distress Orientation/consciousness: patient oriented x3 HENMT Head: Yes normocephalic Neck Neck: Yes supple Resp Effort & Inspection: normal respiratory effort, no cough and no stridor Cardio Rhythm: regular rhythm Heart sounds: S1 normal heart sound present and S2 normal heart sound present Skin General skin exam: turgor normal Neuro General: patient oriented x3, tone normal and moves all extremities Extrem Right lower extremity: no edema Left lower extremity: no edema Assessment and Plan Assessment & Plan (1) Hypertension, essential: Code(s): I10 - Essential (primary) hypertension (2) Legally blind: Code(s): H54.8 - Legal blindness, as defined in [place] (3) Other specified hypothyroidism: Code(s): E03.8 - Other specified hypothyroidism (4) Palpitations: Code(s): R00.2 - Palpitations (5) Bilateral foot pain: Code(s): M79.671 - Pain in right foot; M79.672 - Pain in left foot Plan Blood pressure is elevated in 160s-patient says that he gets nervous when he comes to doctor's office He has visiting nurse come or twice a week to check blood pressure and he tells me that nurse all his daily blood pressure is good She is coming tomorrow I have told him to have a nurse call me with the blood pressure reading. He is on losartan 25 mg and spironolactone 50 mg Labs done recently reviewed He has seen target protection specialist and was started on gabapentin 300 b.i.d. which has helped the patient is pain is better. I have told him that after the next follow-up if needed I can take over the gabapentin script. He is on levothyroxine 100 mcg his TSH level is within normal limit Allergies are stable with montelukast 10 mg Continue propranolol Coding Level of Care Code Est Pt Level 4 (83053) Diagnoses Hypertension, essential I10 Legally blind H54.8 Other specified hypothyroidism E03.8 Palpitations R00.2 Bilateral foot pain M79.671; M79.672 Additional Codes MINNIE-7 Assessment Billing - MINNIE-7 Assessment Tool: MINNIE-7 Assessment 24034 ([id number])
== END 2023-05-14 10:22 | disposition home or self-care (01) ==
PROVIDERS: PCP Internal Medicine; Visit Provider Internal Medicine
DX: I10 Essential (primary) hypertension (principal); H54.8 Legal blindness, as defined in USA; E03.8 Other specified hypothyroidism; R00.2 Palpitations; M79.671 Pain in right foot; M79.672 Pain in left foot
CPT/HCPCS: 99214

== ENCOUNTER → 2023-05-21 23:59 | Outpatient (BNV) | payer MEDICARE, MEDICAID, SELFPAY | PROVIDERS: PCP Internal Medicine; Visit Provider Internal Medicine | DX: I10 Essential (primary) hypertension (principal); F33.1 Major depressive disorder, recurrent, moderate; F41.9 Anxiety disorder, unspecified; R00.2 Palpitations | CPT/HCPCS: G0179 ==

== ENCOUNTER 2023-08-13 12:50 | Outpatient (AMB) | payer MEDICARE, MEDICAID, SELFPAY ==
[2023-08-13 12:55] VITALS: BP 148/90; PULSE 85; O2SAT 98; BMI 25.9
--- NOTE | 2023-08-13 12:55 | A.OFFPC_ITS ---
Vital Signs 08/13/23 12:55 Height 5 ft 7 in Weight 165 lb 2 oz BMI 25.9 BP 148/90 H Blood Pressure Location Rt brachial Position Sitting Pulse 85 Pulse Source Pulse Oximeter Pulse Oximetry (%) 98 Oxygen Delivery Method Room Air Intake Visit Reasons: 6 month follow up Allergies No Known Allergies [No Known Allergies*] Allergy (Verified 08/13/23 12:57) Medication List - Last Reconciled 08/13/23 by Florecita Bettencourt MD calcium carbonate-vitamin D3 600 mg-10 mcg (400 unit) 1 tab PO BID cholecalciferol (vitamin D3) 50 mcg PO DAILY 90 days ibuprofen 800 mg PO ONCE PRN 90 days levothyroxine 100 mcg PO DAILY losartan 50 mg PO DAILY montelukast 10 mg PO DAILY propranolol 20 mg PO TID spironolactone 50 mg PO DAILY 90 days Tobacco use date assessed: 08/13/23 Dental Screening Dental Screen Date: 08/13/23 Did you have a dental visit in the last 12 months?: Yes Did you have a dental problem in the last 6 months where you did not have access to dental care?: No Was dental information given to patient?: Patient has dentist HPI 6 month follow up HPI Details Patient is a 62-year-old gentleman came in today for his regular follow-up appointment Patient suffers from plantar fasciitis pain which is worse in the morning Currently he is taking gabapentin 300 mg b.i.d. which is helping. But pain is still unbearable I am increasing the dose to 3 times a day. He has also developed accident behind his ears both sides for that I have sent hydrocortisone 2.5% cream patient may use that up to 2 times a day until better and then stop. Hypertension: Blood pressure continued to be elevated patient says it is because of the pain. He is taking losartan 50 mg once a day, propranolol 20 mg t.i.d. that is for his thyroid, and spironolactone 50 mg daily. Labs to be done before next visit He has visiting nurse come or twice a week to check blood pressure He has seen performance improvement specialist and was started on gabapentin 300 b.i.d. through performance improvement specialist He is on levothyroxine 100 mcg his TSH level is within normal limit Allergies are stable with montelukast 10 mg Follow-up early November [facility] Medical History Legally blind Asthma HTN (hypertension) Social History Housing: Apartment Patient Tobacco Use Status: Current someday Tobacco user Cigarettes Per Day: 2 e-Cigarette/Vaping Use: Never Used service: No Current occupational status: disabled Cognitive needs: No Hearing needs: No Vision needs: 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) Questionnaire Thrive Questionnaire Date Thrive assessed: 05/14/23 AUDIT C Alcohol Use Questionnaire (AUDIT-C) 1. How often do you have a drink containing alcohol?: Never 3. How often do you have six or more drinks on one occasion?: Never Total Score: 0 Score Reviewed/Action Taken: Yes MINNIE-7 AMB Questionnaire MINNIE-7 Date MINNIE - 7 assessed: 05/14/23 Source: Developed by Drs. Tarun Chance, Bethany Saucedo, Rodriguez Martin and colleagues, with an educational chioma from [employer]. Review of Systems Const Denies chills and Denies fever(s) ENT Denies epistaxis and Denies nasal discharge Card Denies chest pain Resp Denies chest congestion, Denies cough and Denies hemoptysis GI Denies diarrhea and Denies nausea Skin/Breast Denies rash Neuro Reports no additional complaints Psych Reports no additional complaints Endo Reports no additional complaints Physical exam (Primary Care) Vital Signs: Last Vital Signs Pulse 85 08/13/23 12:55 BP 148/90 H 08/13/23 12:55 Pulse Ox 98 08/13/23 12:55 Oxygen Delivery Method Room Air 08/13/23 12:55 BMI result Body Mass Index 25.9 Tobacco/Smoking Status: Tobacco use Status Tobacco use date assessed 08/13/23 08/13/23 12:58 Patient Tobacco Use Status Current someday Tobacco 08/13/23 12:58 e-Cigarette/Vaping Use Never Used 08/13/23 12:58 Thrive Assessment: Date of Thrive Assessment Date Thrive assessed 05/14/23 08/13/23 12:58 Const General: cooperative, comfortable and no acute distress Orientation/consciousness: patient oriented x3 HENMT Head: Yes normocephalic Eyes Other: Legally blind General: appearance normal, both eyes and all related structures Neck Neck: Yes supple Resp Effort & Inspection: normal respiratory effort, no cough and no stridor Cardio Rhythm: regular rhythm Heart sounds: S1 normal heart sound present and S2 normal heart sound present Skin Other: Eczematous rash external ear and behind the ear both sides General skin exam: turgor normal Neuro General: patient oriented x3, tone normal and moves all extremities Extrem Right lower extremity: no edema Left lower extremity: no edema Assessment and Plan Assessment & Plan (1) Hypertension, essential: Code(s): I10 - Essential (primary) hypertension (2) Legally blind: Code(s): H54.8 - Legal blindness, as defined in [place] (3) Other specified hypothyroidism: Code(s): E03.8 - Other specified hypothyroidism (4) Palpitations: Comment: Taking propranolol with good control of symptoms Code(s): R00.2 - Palpitations (5) Bilateral foot pain: Comment: Gabapentin t.i.d. for foot pain Code(s): M79.671 - Pain in right foot; M79.672 - Pain in left foot (6) Major depression, recurrent: Comment: Stable Code(s): F33.9 - Major depressive disorder, recurrent, unspecified Qualifiers: Active/Remission status: in partial remission Qualified Code(s): F33.41 - Major depressive disorder, recurrent, in partial remission (7) Eczema of both external ears: Code(s): H60.543 - Acute eczematoid otitis externa, bilateral Plan Patient is a 62-year-old gentleman came in today for his regular follow-up appointment Patient suffers from plantar fasciitis pain which is worse in the morning Currently he is taking gabapentin 300 mg b.i.d. which is helping. But pain is still unbearable I am increasing the dose to 3 times a day. He has also developed accident behind his ears both sides for that I have sent hydrocortisone 2.5% cream patient may use that up to 2 times a day until better and then stop. Hypertension: Blood pressure continued to be elevated patient says it is because of the pain. He is taking losartan 50 mg once a day, propranolol 20 mg t.i.d. that is for his thyroid, and spironolactone 50 mg daily. Labs to be done before next visit He has visiting nurse come or twice a week to check blood pressure He has seen performance improvement specialist and was started on gabapentin 300 b.i.d. through performance improvement specialist He is on levothyroxine 100 mcg his TSH level is within normal limit Allergies are stable with montelukast 10 mg Follow-up early November Medications: New hydrocortisone 2.5% 1 appl topical BID 30 days PRN 30 grams 0RF skin irritation gabapentin 300 mg PO TID 30 days 90 caps 2RF Coding Level of Care Code Est Pt Level 4 (01294) Diagnoses Hypertension, essential I10 Legally blind H54.8 Other specified hypothyroidism E03.8 Palpitations R00.2 Bilateral foot pain M79.671; M79.672 Recurrent major depressive disorder, in partial remission F33.41 Active/Remission status: in partial remission Eczema of both external ears H60.543
== END 2023-08-13 13:57 | disposition home or self-care (01) ==
PROVIDERS: PCP Internal Medicine; Visit Provider Internal Medicine
DX: I10 Essential (primary) hypertension (principal); F33.41 Major depressive disorder, recurrent, in partial remission; H54.8 Legal blindness, as defined in USA; E03.8 Other specified hypothyroidism; R00.2 Palpitations; M79.671 Pain in right foot; M79.672 Pain in left foot; H60.543 Acute eczematoid otitis externa, bilateral
CPT/HCPCS: 99214

== ENCOUNTER 2023-11-08 09:23 | Outpatient (REF) | payer MEDICARE, MEDICAID, SELFPAY ==
[2023-11-08 10:39] LABS: MANUAL DIFF FLAG NO
[2023-11-08 10:49] LABS: Basophils Absolute Auto 0.1 X10*3/uL (0.0-0.2); Eosinophils Absolute Auto 0.5 X10*3/uL (0.0-0.4); Eosinophils Percent Auto 7.4 % (0-4); Hematocrit 44.5 % (42.0-52.0); Hemoglobin 14.6 g/dl (14.0-18.0); Imm Gran Abs Auto 0.02 X10*3/uL (0.00-0.03); Imm Gran Pct Auto 0.3 % (0.0-0.4); Lymphocytes Absolute Auto 1.7 X10*3/uL (1.2-4.9); Lymphocytes Percent Auto 24.9 % (20-40); Mean Corpuscular HGB Conc 32.8 g/dl (31.0-36.0); Mean Corpuscular Hemoglobin 30.5 pg (27.0-33.0); Mean Corpuscular Volume 92.9 fL (80.0-98.0); Mean Platelet Volume 9.6 fL (9.4-12.4); Monocytes Absolute Auto 0.7 X10*3/uL (0.1-1.2); Monocytes Percent Auto 9.8 % (2-11); Neutrophils Absolute Auto 3.8 x10*3/uL (2.0-8.3); Neutrophils Percent Auto 56.6 % (45-73); Platelet Count 327 X10*3/uL (160-400); Red Blood Count 4.79 X10*6/uL (4.60-5.80); Red Cell Distribution Width 13.1 % (11.0-16.0); White Blood Count 6.8 X10*3/uL (4.8-10.8)
[2023-11-08 11:25] LABS: Alanine Aminotransferase 17 U/L (0-40); Albumin Level 4.1 g/dL (3.5-5.0); Alkaline Phosphatase 71 U/L (39-117); Anion Gap 11 (12-20); Aspartate Amino Transferase 17 U/L (5-37); Bilirubin Total 0.4 mg/dL (0.0-1.0); Blood Urea Nitrogen 13 mg/dL (9-16); Calcium 9.3 mg/dL (8.4-10.2); Carbon Dioxide 27 mmol/L (22-29); Chloride 107 mmol/L (96-108); Estimated Glomerular Filt Rate > 60; Glucose Random 93 mg/dL (60-115); Potassium 3.8 mmol/L (3.3-5.1); Sodium 141 mmol/L (135-145); TSH reflex Free T4 0.95 uIU/mL (0.32-4.0); Total Protein 7.1 g/dL (6.5-8.0)
[2023-11-10 03:23] LABS: LDL Cholesterol Direct 130 mg/dL (<100)
== END 2023-11-08 09:24 | disposition home or self-care (01) ==
LOC: HO.HMGCLDS 09:23
PROVIDERS: PCP Internal Medicine; Visit Provider Internal Medicine
DX: I10 Essential (primary) hypertension (principal); E05.90 Thyrotoxicosis, unspecified without thyrotoxic crisis or storm; D64.9 Anemia, unspecified; E03.8 Other specified hypothyroidism; F33.9 Major depressive disorder, recurrent, unspecified
CPT/HCPCS: 36415; 80053; 83721; 84443; 85025

== ENCOUNTER 2023-11-12 10:45 | Outpatient (AMB) | payer MEDICARE, MEDICAID, SELFPAY ==
--- NOTE | 2023-11-12 10:55 | MHC.PC.OV ---
Vital Signs 11/12/23 10:56 Height 5 ft 7 in Weight 169 lb 6 oz BMI 26.5 BP 152/90 H Blood Pressure Location Lt brachial Position Sitting Pulse 83 Pulse Source Pulse Oximeter Pulse Oximetry (%) 97 Oxygen Delivery Method Room Air Intake Visit Reasons: 9 month follow up Allergies No Known Allergies [No Known Allergies*] Allergy (Verified 11/12/23 10:58) Tobacco use date assessed: 11/12/23 Fall risk assessment: No Falls in past year Last assessed Fall Risk: 11/12/23 Dental Screening Dental Screen Date: 11/12/23 Did you have a dental visit in the last 12 months?: No Did you have a dental problem in the last 6 months where you did not have access to dental care?: No Was dental information given to patient?: No HPI 9 month follow up HPI Details Patient is a 63-year-old gentleman came in today for his regular follow-up appointment Labs done recently reviewed His blood pressure is elevated today because his feet are hurting He has a nurse come over twice a week to check his blood pressure and it runs fine at home Patient suffers from plantar fasciitis pain which is worse in the morning Currently he is taking gabapentin 300 mg tid Eczema behind his ear is stable Hypertension: He is taking losartan 50 mg once a day, propranolol 20 mg t.i.d. that is for his thyroid, and spironolactone 50 mg daily. He is on levothyroxine 100 mcg his TSH level is within normal limit Allergies are stable with montelukast 10 mg Three-month follow-up [facility]ENDING SALE TO [facility] Medical History Legally blind Asthma HTN (hypertension) Social History Housing: Apartment Patient Tobacco Use Status: Current someday Tobacco user Cigarettes Per Day: 2 e-Cigarette/Vaping Use: Never Used service: No Current occupational status: disabled Cognitive needs: No Hearing needs: No Vision needs: 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) Questionnaire PHQ-9 Over the last 2 weeks, how often have you been bothered by any of the following problems? 1. Little interest or pleasure in doing things: not at all 2. Feeling down, depressed, or hopeless: not at all 3. Trouble falling or staying asleep, or sleeping too much: not at all 4. Feeling tired or having little energy: not at all 5. Poor appetite or overeating: not at all 6. Feeling bad about yourself - or that you are a failure or have let yourself or your family down: not at all 7. Trouble concentrating on things, such as reading the newspaper or watching television: not at all 8. Moving or speaking so slowly that other people could have noticed. Or the opposite - being so fidgety or restless that you have been moving around a lot more than usual: not at all 9. Thoughts that you would be better off or of hurting yourself in some way: not at all Total score: 0 Depression Screening Interpretation: Negative Depression Screening Done: Yes 17852 - PHQ-9 Billing: Yes Source: Developed by Drs. Tarun Chance, Bethany Saucedo, Rodriguez Martin and colleagues, with an educational hcioma from [employer]. Thrive Questionnaire Date Thrive assessed: 11/12/23 I am a: Patient What is your living situation today?: I have a steady place to live Within the past 12 months, did the food you bought not last and you didn't have the money to get more?: Never true Within the past 12 months, did you worry whether your food would run out before you got money to buy more?: Never true Do you have trouble paying for medicines?: No Do you have trouble getting transportation to medical appointments?: No Do you have trouble paying your heating and electricity bill?: No Do you have trouble taking care of your child, family member or friend?: No Do you have trouble with day-to-day activities such as bathing, preparing meals, shopping, managing finances, etc.?: No Are you currently unemployed and looking for a job?: No Are you interested in more education?: No Please select the resources that you would like help with: None Currently or been in a relationship where the following occur: no concerns reported THRIVE Score: 0 AUDIT C Alcohol Use Questionnaire (AUDIT-C) 1. How often do you have a drink containing alcohol?: Never 3. How often do you have six or more drinks on one occasion?: Never Total Score: 0 Score Reviewed/Action Taken: Yes MINNIE-7 AMB Questionnaire MINNIE-7 Date MINNIE - 7 assessed: 11/12/23 Feeling nervous, anxious, or on edge: 0 = Not at all Not being able to stop or control worryin = Not at all Worrying too much about different things: 0 = Not at all Trouble relaxin = Not at all Being so restless that it is hard to sit still: 0 = Not at all Becoming easily annoyed or irritable: 0 = Not at all Feeling afraid as if something awful might happen: 0 = Not at all Total MINNIE-7 score (0-4 normal; 5-9 mild; 10-14 moderate; 15-21 severe): 0 Source: Developed by Drs. Tarun Chance, Bethany Saucedo, Rodriguez Martin and colleagues, with an educational chioma from [employer]. MINNIE-7 Assessment Billing MINNIE-7 Assessment Tool: MINNIE-7 Assessment 41100 Review of Systems Const Denies chills and Denies fever(s) ENT Denies epistaxis and Denies nasal discharge Card Denies chest pain Resp Denies chest congestion, Denies cough and Denies hemoptysis GI Denies diarrhea and Denies nausea Skin/Breast Denies rash Neuro Reports no additional complaints Psych Reports no additional complaints Endo Reports no additional complaints Physical exam (Primary Care) Vital Signs: Last Vital Signs Pulse 83 11/12/23 10:56 BP 152/90 H 11/12/23 10:56 Pulse Ox 97 11/12/23 10:56 Oxygen Delivery Method Room Air 11/12/23 10:56 BMI result Body Mass Index 26.5 Tobacco/Smoking Status: Tobacco use Status Tobacco use date assessed 11/12/23 11/12/23 10:59 Patient Tobacco Use Status Current someday Tobacco 11/12/23 10:59 e-Cigarette/Vaping Use Never Used 11/12/23 10:59 PHQ-9: PHQ-9 Score PHQ-9: Total score 0 11/12/23 11:14 Depression Screening Interpretation: Negative Thrive Assessment: Date of Thrive Assessment Date Thrive assessed 11/12/23 11/12/23 11:00 Currently or been in a relationship where the following occur: no concerns reported Const General: cooperative, comfortable and no acute distress Orientation/consciousness: patient oriented x3 HENMT Head: Yes normocephalic Neck Neck: Yes supple Resp Effort & Inspection: normal respiratory effort, no cough and no stridor Cardio Rhythm: regular rhythm Heart sounds: S1 normal heart sound present and S2 normal heart sound present Skin General skin exam: turgor normal Neuro General: patient oriented x3, tone normal and moves all extremities Extrem Right lower extremity: no edema Left lower extremity: no edema Assessment and Plan Assessment & Plan (1) Hypertension, essential: Code(s): I10 - Essential (primary) hypertension (2) Legally blind: Code(s): H54.8 - Legal blindness, as defined in [place] (3) Other specified hypothyroidism: Code(s): E03.8 - Other specified hypothyroidism (4) Palpitations: Comment: Taking propranolol with good control of symptoms Code(s): R00.2 - Palpitations (5) Bilateral foot pain: Comment: Gabapentin t.i.d. for foot pain Code(s): M79.671 - Pain in right foot; M79.672 - Pain in left foot (6) Major depression, recurrent: Comment: Stable Code(s): F33.9 - Major depressive disorder, recurrent, unspecified Qualifiers: Active/Remission status: in partial remission Qualified Code(s): F33.41 - Major depressive disorder, recurrent, in partial remission (7) Eczema of both external ears: Code(s): H60.543 - Acute eczematoid otitis externa, bilateral Plan Patient is a 63-year-old gentleman came in today for his regular follow-up appointment Labs done recently reviewed His blood pressure is elevated today because his feet are hurting He has a nurse come over twice a week to check his blood pressure and it runs fine at home Patient suffers from plantar fasciitis pain which is worse in the morning Currently he is taking gabapentin 300 mg tid Eczema behind his ear is stable Hypertension: He is taking losartan 50 mg once a day, propranolol 20 mg t.i.d. that is for his thyroid, and spironolactone 50 mg daily. He is on levothyroxine 100 mcg his TSH level is within normal limit Allergies are stable with montelukast 10 mg Three-month follow-up Coding Level of Care Code Est Pt Level 4 (73770) Diagnoses Hypertension, essential I10 Legally blind H54.8 Other specified hypothyroidism E03.8 Palpitations R00.2 Bilateral foot pain M79.671; M79.672 Recurrent major depressive disorder, in partial remission F33.41 Active/Remission status: in partial remission Eczema of both external ears H60.543 Additional Codes MINNIE-7 Assessment Billing - MINNIE-7 Assessment Tool: MINNIE-7 Assessment 13836 ([id number])
[2023-11-12 10:56] VITALS: BP 152/90; PULSE 83; O2SAT 97; BMI 26.5
== END 2023-11-12 12:20 | disposition home or self-care (01) ==
PROVIDERS: PCP Internal Medicine; Visit Provider Internal Medicine
DX: I10 Essential (primary) hypertension (principal); F33.41 Major depressive disorder, recurrent, in partial remission; H54.8 Legal blindness, as defined in USA; E03.8 Other specified hypothyroidism; R00.2 Palpitations; M79.671 Pain in right foot; M79.672 Pain in left foot; H60.543 Acute eczematoid otitis externa, bilateral
CPT/HCPCS: 99214

== ENCOUNTER 2024-03-03 09:57 | Outpatient (AMB) | payer MEDICARE, MEDICAID, SELFPAY ==
[2024-03-03 10:01] VITALS: BP 160/98; PULSE 79; O2SAT 98; BMI 26.3
--- NOTE | 2024-03-03 10:01 | A.OFFPC_ITS ---
Vital Signs 3 03/03/24 10:01 Height 5 ft 7 in Weight 168 lb BMI 26.3 BP 160/98 H Blood Pressure Location Lt brachial Position Sitting Pulse 79 Pulse Source Pulse Oximeter Pulse Oximetry (%) 98 Oxygen Delivery Method Room Air Intake Visit Reasons: Annual PE Allergies No Known Allergies [No Known Allergies*] Allergy (Verified 03/03/24 10:03) Medication List - Last Reconciled 03/03/24 by Florecita Bettencourt MD calcium carbonate-vitamin D3 600 mg-10 mcg (400 unit) 1 tab PO BID cholecalciferol (vitamin D3) 50 mcg PO DAILY 90 days gabapentin 300 mg PO TID 30 days hydrocortisone 2.5% 1 appl topical BID PRN 30 days ibuprofen 800 mg PO ONCE PRN 90 days levothyroxine 100 mcg PO DAILY losartan 50 mg PO DAILY montelukast 10 mg PO DAILY propranolol 20 mg PO TID spironolactone 50 mg PO DAILY 90 days Tobacco use date assessed: 03/03/24 Fall risk assessment: No Falls in past year Last assessed Fall Risk: 03/03/24 Dental Screening Dental Screen Date: 03/03/24 Did you have a dental visit in the last 12 months?: Yes Did you have a dental problem in the last 6 months where you did not have access to dental care?: No Was dental information given to patient?: Patient has dentist HPI Annual PE 2 HPI0 Details Physical exam appointment 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 He is also on gabapentin 300 mg t.i.d. he has been evaluated by floral specialist Dr. Danielle Rapp Consultation note reviewed from February of last year, MRI of his left ankle was considered, however patient says that he still did not had it He has been calling the office for follow-up appointments but every time he is told that they will let him know I have created a new referral for that Meanwhile I am stopping his ibuprofen and I have sent meloxicam 15 mg to be taken once in the breakfast Patient is on Losartan 50 mg and spironolactone 50 mg daily. Blood pressure is high But it is running fine at home, he has visiting nurse come over to check it Patient is also taking propranolol 20 mg and levothyroxine 100 mcg TSH done in January was within normal limit Asthma is stable allergies are stable patient is on singular 10 mg daily Follow-up 3 months [facility] Medical History Legally blind Asthma HTN (hypertension) Social History Housing: Apartment Patient Tobacco Use Status: Current someday Tobacco user Cigarettes Per Day: 2 e-Cigarette/Vaping Use: Never Used service: No Current occupational status: disabled Cognitive needs: No Hearing needs: No Vision needs: 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) Questionnaire PHQ-9 Over the last 2 weeks, how often have you been bothered by any of the following problems? 1. Little interest or pleasure in doing things: not at all 2. Feeling down, depressed, or hopeless: not at all 3. Trouble falling or staying asleep, or sleeping too much: not at all 4. Feeling tired or having little energy: not at all 5. Poor appetite or overeating: not at all 6. Feeling bad about yourself - or that you are a failure or have let yourself or your family down: not at all 7. Trouble concentrating on things, such as reading the newspaper or watching television: not at all 8. Moving or speaking so slowly that other people could have noticed. Or the opposite - being so fidgety or restless that you have been moving around a lot more than usual: not at all 9. Thoughts that you would be better off or of hurting yourself in some way: not at all Total score: 0 Depression Screening Interpretation: Negative Depression Screening Done: Yes 77905 - PHQ-9 Billing: Yes Source: Developed by Drs. Tarun Chance, Bethany Saucedo, Rodriguez Mratin and colleagues, with an educational chioma from [employer]. Thrive Questionnaire Date Thrive assessed: 03/03/24 I am a: Patient What is your living situation today?: I have a steady place to live Within the past 12 months, did the food you bought not last and you didn't have the money to get more?: Never true Within the past 12 months, did you worry whether your food would run out before you got money to buy more?: Never true Do you have trouble paying for medicines?: Yes Do you have trouble getting transportation to medical appointments?: No Do you have trouble paying your heating and electricity bill?: No Do you have trouble taking care of your child, family member or friend?: No Do you have trouble with day-to-day activities such as bathing, preparing meals, shopping, managing finances, etc.?: Yes Are you currently unemployed and looking for a job?: No Are you interested in more education?: No Please select the resources that you would like help with: Housing/Senior Care Currently or been in a relationship where the following occur: No concerns reported THRIVE Score: 0 AUDIT C Alcohol Use Questionnaire (AUDIT-C) 1. How often do you have a drink containing alcohol?: Never 3. How often do you have six or more drinks on one occasion?: Never Total Score: 0 Score Reviewed/Action Taken: Yes MINNIE-7 AMB Questionnaire MINNIE-7 Date MINNIE - 7 assessed: 03/03/24 Feeling nervous, anxious, or on edge: 0 = Not at all Not being able to stop or control worryin = Not at all Worrying too much about different things: 0 = Not at all Trouble relaxin = Not at all Being so restless that it is hard to sit still: 0 = Not at all Becoming easily annoyed or irritable: 0 = Not at all Feeling afraid as if something awful might happen: 0 = Not at all Total MINNIE-7 score (0-4 normal; 5-9 mild; 10-14 moderate; 15-21 severe): 0 Source: Developed by Drs. Tarun Chance, Bethany Saucedo, Rodriguez Martin and colleagues, with an educational chioma from [employer]. MINNIE-7 Assessment Billing MINNIE-7 Assessment Tool: MINNIE-7 Assessment 45060 Review of Systems Const Denies chills, Denies fever(s) and Denies headache(s) ENT Denies headache(s), Denies nasal discharge, Denies nasal obstruction, Denies odynophagia and Denies sinus pain Card Denies chest pain at rest and Denies chest pain with activity Resp Denies cough and Denies hemoptysis GI Denies diarrhea, Denies odynophagia, Denies vomiting and Denies hematemesis Reports as per HPI Skin/Breast Reports as per HPI Neuro Denies Neuro-related abnormal movements, Denies Abnormal speech present and Denies headache(s) Psych Denies mood swings and Denies paranoia Endo Reports as per HPI Delroy/Lymph Reports as per HPI Aller/Immun Reports as per HPI Physical exam (Primary Care) Vital Signs: Last Vital Signs Pulse 79 03/03/24 10:01 BP 160/98 H 03/03/24 10:01 Pulse Ox 98 03/03/24 10:01 Oxygen Delivery Method Room Air 03/03/24 10:01 BMI result Body Mass Index 26.3 Tobacco/Smoking Status: Tobacco use Status Tobacco use date assessed 03/03/24 03/03/24 10:04 Patient Tobacco Use Status Current someday Tobacco 03/03/24 10:04 e-Cigarette/Vaping Use Never Used 03/03/24 10:04 PHQ-9: PHQ-9 Score PHQ-9: Total score 0 03/03/24 10:12 Depression Screening Interpretation: Negative Thrive Assessment: Date of Thrive Assessment Date Thrive assessed 03/03/24 03/03/24 10:04 Currently or been in a relationship where the following occur: No concerns reported Const General: cooperative, comfortable and no acute distress Orientation/consciousness: patient oriented x3 HENMT Head: Yes normocephalic and Yes atraumatic Neck Neck: Yes supple and No lymphadenopathy Thyroid: Thyroid normal Lymphatic: no lymphadenopathy noted Resp Effort & Inspection: normal respiratory effort and able to speak in complete sentences Auscultation: clear to auscultation bilaterally Cardio Heart sounds: S1 normal heart sound present and S2 normal heart sound present GI Palpation (GI): Soft to palpation and nontender Auscultation: normal bowel sounds General: Yes no CVA tenderness Back/Spine/Pelvis Back: no CVA tenderness Skin General skin exam: elasticity normal and turgor normal Neuro General: patient oriented x3 and gait normal Speech: No Abnormal speech present Extrem General: Yes normal exam except as noted and No edema Ankle/foot/toe images: 2 1. Site of pain 2. Site of pain Assessment and Plan Assessment & Plan (1) Encounter for general adult medical examination with abnormal findings: Code(s): Z00.01 - Encounter for general adult medical examination with abnormal findings (2) Hypertension, essential: Code(s): I10 - Essential (primary) hypertension (3) Hyperthyroidism: Code(s): E05.90 - Thyrotoxicosis, unspecified without thyrotoxic crisis or storm (4) Plantar fasciitis, bilateral: Code(s): M72.2 - Plantar fascial fibromatosis (5) Bilateral foot pain: Comment: Gabapentin t.i.d. 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 He is also on gabapentin 300 mg t.i.d. he has been evaluated by floral specialist Dr. Danielle Rapp Consultation note reviewed from February of last year, MRI of his left ankle was considered, however patient says that he still did not had it He has been calling the office for follow-up appointments but every time he is told that they will let him know I have created a new referral for that Meanwhile I am stopping his ibuprofen and I have sent meloxicam 15 mg to be taken once in the breakfast Patient is on Losartan 50 mg and spironolactone 50 mg daily. Blood pressure is high But it is running fine at home, he has visiting nurse come over to check it Patient is also taking propranolol 20 mg and levothyroxine 100 mcg TSH done in January was within normal limit Asthma is stable allergies are stable patient is on singular 10 mg daily Follow-up 3 months Orders: Orders 2 Complete Blood Count Auto Diff 3 Months E03.8 - Other specified hypothyroidism, E05.90 - Thyrotoxicosis, unspecified without thyrotoxic crisis or storm, I10 - Essential (primary) hypertension, M79.671 - Pain in right foot, M79.672 - Pain in left foot, Z00.01 - Encounter for general adult medical examination with abnormal findings Comprehensive Met. Panel 3 Months E03.8 - Other specified hypothyroidism, E05.90 - Thyrotoxicosis, unspecified without thyrotoxic crisis or storm, I10 - Essential (primary) hypertension, M79.671 - Pain in right foot, M79.672 - Pain in left foot, Z00.01 - Encounter for general adult medical examination with abnormal findings Referrals 2 Orthopedics Referral M79.671 - Pain in right foot, M79.672 - Pain in left foot Medications: New 2 meloxicam 15 mg PO DAILY 30 tabs 2RF Refilled 2 gabapentin 300 mg PO TID 90 caps 2RF 30 days hydrocortisone 2.5% 1 appl topical BID PRN 30 grams 2RF skin irritation 30 days Discontinued 2 ibuprofen Discontinued Reason: Doctor's Order 800 mg PO ONCE 90 days PRN 90 tabs 1RF pain Coding Level of Care Code Est Pt Level 4 (69737) Est Pt Prev Care 40-64y(43144) Diagnoses Encounter for general adult medical examination with abnormal findings Z00.01 Hypertension, essential I10 Hyperthyroidism E05.90 Plantar fasciitis, bilateral M72.2 Bilateral foot pain M79.671; M79.672 Other specified hypothyroidism E03.8 Legally blind H54.8 Mild intermittent asthma without complication J45.20 Asthma complication type: uncomplicated Asthma severity: mild Additional Codes MINNIE-7 Assessment Billing - MINNIE-7 Assessment Tool: MINNIE-7 Assessment 55000 ([id number])
== END 2024-03-03 10:30 | disposition home or self-care (01) ==
PROVIDERS: PCP Internal Medicine; Visit Provider Internal Medicine
DX: Z00.01 Encounter for general adult medical examination with abnormal findings (principal); I10 Essential (primary) hypertension; E05.90 Thyrotoxicosis, unspecified without thyrotoxic crisis or storm; M72.2 Plantar fascial fibromatosis; M79.671 Pain in right foot; M79.672 Pain in left foot; E03.8 Other specified hypothyroidism; H54.8 Legal blindness, as defined in USA; J45.20 Mild intermittent asthma, uncomplicated
CPT/HCPCS: 99214; 99396

== ENCOUNTER 2024-03-31 23:29 | Inpatient (IN) | payer MEDICARE, MEDICAID, SELFPAY ==
--- NOTE | ~2024-03-31 | XR_ITS ---
EXAMINATION: XR CHEST CLINICAL INFORMATION: Intubation COMPARISON: Chest radiograph approximately one hour ago at 6:09 AM TECHNIQUE: Frontal view of the chest was obtained. FINDINGS: Since the prior study the patient has been intubated with ET tube 4.5 cm above the lazara. An NG tube has been placed with its tip at least in the gastric antrum beyond the [id number]. The exam is otherwise unchanged with perihilar airspace opacities and small bilateral effusions. XR/XR chest 1V IMPRESSION: ET tube 4.5 cm above the lazara. NG tube in good position. No other interval change. Electronically signed by: Luciano Nelson MD 04/02/2024 09:33 AM EDT
--- NOTE | ~2024-03-31 | CT_ITS ---
EXAMINATION: CT ABDOMEN AND PELVIS WITHOUT CONTRAST CLINICAL INFORMATION: Acute urinary retention COMPARISON: 09/23/2020 TECHNIQUE: Multidetector volumetric imaging was performed from the superior aspect of the liver through the pubic symphysis. Sagittal and coronal reformatted images were obtained on the technologist's workstation. This CT examination was performed using dose optimization techniques as appropriate, variously including the following: *Automated exposure control *Adjustment of mA and/or kV according to patient size (this includes techniques or standardized protocols for targeted exams where dose is matched to indication/reason for exam; i.e. extremities or head) *Use of iterative reconstruction technique DLP: 787 mGy-cm FINDINGS: LUNG BASES: Atelectasis in the lung bases. Heart is mildly enlarged. LIVER, GALLBLADDER, AND BILIARY TREE: The liver is normal in size, shape, and attenuation. No focal hepatic lesion or biliary ductal dilatation is present. The gallbladder is unremarkable with no evidence of radiopaque gallstones, gallbladder wall thickening, or obvious pericholecystic inflammatory changes. PANCREAS: Unremarkable. SPLEEN: Unremarkable. ADRENAL GLANDS: Unremarkable. KIDNEYS AND URETERS: There is mild prominence of the left renal collecting system without hydronephrosis. There is a punctate calcification in the upper pole of the left kidney. There is an extrarenal pelvis on the right without hydronephrosis on the right. Bilateral nonspecific perinephric stranding more pronounced on the left. There is mild prominence of both ureters to the level of the urinary bladder which is completely decompressed. BLADDER: The bladder is completely decompressed with Estevez catheter in place GASTROINTESTINAL TRACT: No bowel obstruction. Normal appendix. Sigmoid diverticulosis without diverticulitis. ABDOMINAL WALL: No significant hernia is appreciated. LYMPH NODES: Small retroperitoneal lymph nodes which are not pathologically enlarged by CT criteria VASCULAR: Unremarkable. PELVIC VISCERA: Enlarged prostate measuring 5.9 cm. OSSEOUS STRUCTURES: There is a lucent lesion in the inferior endplate of the L4 vertebral body measuring 1.9 x 1.8 x 1.4 cm with a thin sclerotic margin. Degenerative disc disease greatest at L4-L5 and L5-S1. CT/CT abdomen pelvis wo IV con IMPRESSION: 1. The bladder is completely decompressed with a Estevez catheter in place. There is mild prominence of the left renal collecting system and bilateral ureters to the level of the urinary bladder which is completely decompressed. There is bilateral perinephric stranding more pronounced on the left. No obstructing calculi. A small nonobstructing calculus in the upper pole of the left kidney. 2. Enlarged prostate measuring 5.9 cm. 3. Lucent lesion in the inferior endplate of the L4 vertebral body measuring 1.9 x 1.8 x 1.4 cm with a thin sclerotic margin. This may represent a large Schmorl's node. Fleischner guidelines were followed. Electronically signed by: Tarun Llanes MD 04/01/2024 12:36 AM EDT
--- NOTE | ~2024-03-31 | XR_ITS ---
EXAMINATION: XR CHEST CLINICAL INFORMATION: Shortness of breath. Hypoxia. COMPARISON: Chest radiograph dated 04/01/2024. TECHNIQUE: Frontal view of the chest was obtained. FINDINGS: New, prominent right perihilar airspace opacity and increasing left basilar opacities. Trace left-sided pleural effusion, unchanged. No pneumothorax. Stable cardiomediastinal silhouette. XR/XR chest 1V IMPRESSION: New, prominent right perihilar airspace opacity and increasing left basilar opacities, which can be seen in the setting of an infectious or inflammatory process, including viral pneumonia. Ultimately, findings could indicate pulmonary edema in the appropriate setting. Electronically signed by: Aleksander Espinal MD 04/02/2024 06:44 AM EDT
--- NOTE | ~2024-03-31 | XR_ITS ---
EXAMINATION: XR CHEST CLINICAL INFORMATION: Dyspnea COMPARISON: X-ray 07/09/2019 TECHNIQUE: Frontal view of the chest was obtained. FINDINGS: Cardiomediastinal silhouette is stable. There is central vascular prominence. Minimal interstitial prominence. Hazy opacity in the left lung base. Possible small left pleural effusion. No pneumothorax is seen. XR/XR chest 1V IMPRESSION: Central vascular prominence and possible mild interstitial edema. Left basilar opacity may reflect atelectasis or infiltrate. Small left pleural effusion. Electronically signed by: Juvneal Guido MD 04/01/2024 05:54 PM EDT
[2024-03-31 23:37] VITALS: BP 137/60; BP 84/49; PULSE 113; PULSE 60; RESP 18; TEMP 36.6; O2SAT 97; O2SAT 98; BMI 26.6
--- NOTE | 2024-03-31 23:49 | ED_ITS ---
HPI - Abdominal Pain General Chief Complaint: Abdominal Pain Stated Complaint: unable to urinate, constipation Time Seen by Provider: 03/31/24 23:33 Source: patient Mode of arrival: EMS Limitations: no limitations History of Present Illness ED Provider: enrique ACOSTA narrative: Patient's history of depression hypertension chronic anemia and hypothyroidism comes here for unable to urinate for last 3 days also having nausea with diarrhea no fever no chills complaining of diffuse abdominal discomfort no history of prostate problems in the past no history of urinary retention in the past on arrival bladder scan showed urine more than 500 cc the staff noticed blood mixed stool on the ground Related Data Home Medications ?Medication ?Instructions ?Recorded ?Confirmed propranolol 20 mg tablet 20 mg PO TID 02/07/22 03/03/24 levothyroxine 100 mcg tablet 100 mcg PO DAILY 08/29/22 03/03/24 Previous Rx's ?Medication ?Instructions ?Recorded cholecalciferol (vitamin D3) 50 50 mcg PO DAILY 90 days #90 caps 04/01/23 mcg (2,000 unit) capsule calcium carbonate 600 mg-vitamin 1 tab PO BID #180 tabs 09/26/23 D3 10 mcg (400 unit) tablet losartan 50 mg tablet 50 mg PO DAILY #90 tabs 11/18/23 montelukast 10 mg tablet 10 mg PO DAILY #90 tabs 11/18/23 spironolactone 50 mg tablet 50 mg PO DAILY 90 days #90 tabs 02/12/24 gabapentin 300 mg capsule 300 mg PO TID 30 days #90 caps 03/03/24 hydrocortisone 2.5 % topical cream 1 appl topical BID PRN skin 03/03/24 irritation 30 days #30 grams meloxicam 15 mg tablet 15 mg PO DAILY #30 tabs 03/03/24 Allergies Allergy/AdvReac Type Severity Reaction Status Date / Time No Known Allergies Allergy Verified 03/31/24 23:39 [No Known Allergies*] Review of Systems Review of Systems Yes all other systems are reviewed and are negative PMFSH Past Medical History Medical History Legally blind Asthma HTN (hypertension) Social History Social History Housing: Apartment Patient Tobacco Use Status: Current someday Tobacco user Cigarettes Per Day: 2 e-Cigarette/Vaping Use: Never Used service: No Current occupational status: disabled Cognitive needs: No Hearing needs: No Vision needs: 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) Physical Exam ED Vital Signs: Vital Signs - 24 hr 03/31/24 23:37 04/01/24 00:52 04/01/24 01:08 Temperature 97.8 F 98.7 F Pulse Rate 113 H 100 100 Respiratory Rate 18 15 19 Blood Pressure 84/49 L 86/59 L 87/63 L Pulse Oximetry 98 98 Oxygen Delivery Method Room Air Room Air 04/01/24 01:25 Temperature Pulse Rate 102 H Respiratory Rate 15 Blood Pressure 103/69 Pulse Oximetry 96 Oxygen Delivery Method Room Air BMI result Body Mass Index 26.6 Appearance: Alert. Oriented X3. No acute distress. Eyes: No pallor legally blind opacified cornea ENT: Pharynx normal. Oral Mucosa dry Neck: Normal inspection. Neck supple. CVS: Normal heart rate and rhythm. Pulses normal. Respiratory: No respiratory distress. Equal air entry bilateral, no wheezing/rales/rhonchi Abdomen: Soft and diffuse tenderness no rebound tenderness or guarding Bowel sounds are present, no mass palpable, no CVA tenderness Skin: Skin warm and dry. Normal skin color. Normal skin turgor. Extremities: 2+ lower extremity edema. No calf tenderness Neuro: Oriented X 3. Medical Decision Making Medical Decision Making [facility] Narrative: Patient with acute gastroenteritis with acute retention of the urine Estevez catheter was placed about 1000 cc of urine drained with thick pus like sediments patient's blood pressure 84/49 with heart rate of 113 will give IV fluids IV Rocephin started labs are pending patient is septic likely Gram- negative bacteremia will add Levaquin Patient's lactic acid 2.9 creatinine 4.47 received IV fluids more than 30 cc/kilogram blood pressure 93/60 pulse rate 101 126am blood pressure 103/69 pulse rate 102 patient is taking p.o. fluids hospitalist aware for admission Differential Diagnosis Differential Diagnoses: The differential diagnosis associated with the presentation includes Admission/Observation Consideration of admission/observation: Escalation of care including admission/observation considered Consult Healthcare Provider Management of the patient was discussed with: Hospitalist Lab Data [facility] Lab Attestation statement: I reviewed the patient's lab results. 04/01/24 00:45 04/01/24 00:45 Labs: Lab Results 03/31/24 04/01/2404/01/24 Range/Units 23:54 00:35 00:39 WBC (4.8-10.8) X10*3/uL RBC (4.60-5.80) X10*6/uL Hgb (14.0-18.0) g/dl Hct (42.0-52.0) % MCV (80.0-98.0) fL MCH (27.0-33.0) pg MCHC (31.0-36.0) g/dl RDW (11.0-16.0) % Plt Count (160-400) X10*3/uL MPV (9.4-12.4) fL Immature Gran % (Auto) Neut % (Auto) Lymph % (Auto) [place] % (Auto) Eos % (Auto) Baso % (Auto) Lymph # (Auto) [place] # (Auto) Eos # (Auto) Baso # (Auto) Abs Immat Gran (auto) Absolute Neuts (auto) Absolute Nucleated RBC (0.0-0.012) X10*3/uL Nucleated RBC % (auto) (0.0-0.2) /100WBC Sodium (135-145) mmol/L Potassium (3.3-5.1) mmol/L Chloride (96-108) mmol/L Carbon Dioxide (22-29) mmol/L Anion Gap (12-20) BUN (9-16) mg/dL Creatinine (0.5-1.4) mg/dL Estim Creat Clear Calc Estimated GFR POC Glucose 66 (60-115) mg/dL Random Glucose (60-115) mg/dL Lactic Acid (0.5-2.0) mmol/L Calcium (8.4-10.2) mg/dL Total Bilirubin (0.0-1.0) mg/dL AST (5-37) U/L ALT (0-40) U/L Alkaline Phosphatase (39-117) U/L Total Protein (6.5-8.0) g/dL Albumin (3.5-5.0) g/dL Urine Color Dark Yellow Urine Appearance Turbid Urine pH 5.5 (5.0-9.0) Ur Specific [place] 1.020 (1.005-1.025) Urine Protein 100 (2+) H (Neg-Trace) mg/dL Urine Glucose (UA) Negative (Negative) mg/dL Urine Ketones Trace (Negative) mg/dL Urine Blood Large (3+) H (Negative) Urine Nitrite Negative (Negative) Ur Leukocyte Esterase Large (3+) H (Negative) Urine RBC 11-20 H (0-2) /HPF Urine WBC >50 H (0-5) /HPF Ur Squamous Epith Cells 6-10 (0-2) /HPF Urine Bacteria 4+ (None Seen) Hyaline Casts 6-10 (0-2) /LPF COVID-19 (TRU) Negative (Negative) COVID-19 Clin Com See Note 04/01/24 Range/Units 00:45 WBC 34.3 H* (4.8-10.8) X10*3/uL RBC 3.70 L D (4.60-5.80) X10*6/uL Hgb 11.6 L D (14.0-18.0) g/dl Hct 33.1 L D (42.0-52.0) % MCV 89.5 (80.0-98.0) fL MCH 31.4 (27.0-33.0) pg MCHC 35.0 (31.0-36.0) g/dl RDW 14.4 (11.0-16.0) % Plt Count 156 L D (160-400) X10*3/uL MPV 10.4 (9.4-12.4) fL Immature Gran % (Auto) Cancelled Neut % (Auto) Cancelled Lymph % (Auto) Cancelled [place] % (Auto) Cancelled Eos % (Auto) Cancelled Baso % (Auto) Cancelled Lymph # (Auto) Cancelled [place] # (Auto) Cancelled Eos # (Auto) Cancelled Baso # (Auto) Cancelled Abs Immat Gran (auto) Cancelled Absolute Neuts (auto) Cancelled Absolute Nucleated RBC 0.000 (0.0-0.012) X10*3/uL Nucleated RBC % (auto) 0.0 (0.0-0.2) /100WBC Sodium 135 (135-145) mmol/L Potassium 3.2 L (3.3-5.1) mmol/L Chloride 104 (96-108) mmol/L Carbon Dioxide 15 L (22-29) mmol/L Anion Gap 19 (12-20) BUN 46 H (9-16) mg/dL Creatinine 4.47 H* (0.5-1.4) mg/dL Estim Creat Clear Calc 15.0 Estimated GFR 13 POC Glucose (60-115) mg/dL Random Glucose 107 (60-115) mg/dL Lactic Acid 2.9 H* (0.5-2.0) mmol/L Calcium 8.4 D (8.4-10.2) mg/dL Total Bilirubin 0.5 (0.0-1.0) mg/dL AST 109 H (5-37) U/L ALT 47 H (0-40) U/L Alkaline Phosphatase 132 H (39-117) U/L Total Protein 5.9 L (6.5-8.0) g/dL Albumin 3.1 L (3.5-5.0) g/dL Urine Color Urine Appearance Urine pH (5.0-9.0) Ur Specific [place] (1.005-1.025) Urine Protein (Neg-Trace) mg/dL Urine Glucose (UA) (Negative) mg/dL Urine Ketones (Negative) mg/dL Urine Blood (Negative) Urine Nitrite (Negative) Ur Leukocyte Esterase (Negative) Urine RBC (0-2) /HPF Urine WBC (0-5) /HPF Ur Squamous Epith Cells (0-2) /HPF Urine Bacteria (None Seen) Hyaline Casts (0-2) /LPF COVID-19 (TRU) (Negative) COVID-19 Clin Com Independent Interpretation I performed an independent interpretation of an: EKG and CT Scan Interpretation: Sinus tachycardia heart rate 111 beats per minute normal intervals normal axis no acute ST T wave changes no acute ischemia Radiology Impression Discussion of test interpretation with radiology: I have reviewed the radiologist's reading. Radiologist Impression: [address] [address] [address] Scan Report Signed Patient: Dioni Carr MR#: [id number] : 1960 Acct:[id number] Age/Sex: 63 / M ADM Date: 03/31/24 Loc: .ED Attending Dr: Ordering Physician: Tucker Mabry MD Date of Service: 04/01/24 Procedure(s): CT abdomen pelvis wo IV con Accession Number(s): [id number] cc: Tucker Mabry MD~ EXAMINATION: CT ABDOMEN AND PELVIS WITHOUT CONTRAST CLINICAL INFORMATION: Acute urinary retention COMPARISON: 09/23/2020 TECHNIQUE: Multidetector volumetric imaging was performed from the superior aspect of the liver through the pubic symphysis. Sagittal and coronal reformatted images were obtained on the technologist's workstation. This CT examination was performed using dose optimization techniques as appropriate, variously including the following: *Automated exposure control *Adjustment of mA and/or kV according to patient size (this includes techniques or standardized protocols for targeted exams where dose is matched to indication/reason for exam; i.e. extremities or head) *Use of iterative reconstruction technique DLP: 787 mGy-cm FINDINGS: LUNG BASES: Atelectasis in the lung bases. Heart is mildly enlarged. LIVER, GALLBLADDER, AND BILIARY TREE: The liver is normal in size, shape, and attenuation. No focal hepatic lesion or biliary ductal dilatation is present. The gallbladder is unremarkable with no evidence of radiopaque gallstones, gallbladder wall thickening, or obvious pericholecystic inflammatory changes. PANCREAS: Unremarkable. SPLEEN: Unremarkable. ADRENAL GLANDS: Unremarkable. KIDNEYS AND URETERS: There is mild prominence of the left renal collecting system without hydronephrosis. There is a punctate calcification in the upper pole of the left kidney. There is an extrarenal pelvis on the right without hydronephrosis on the right. Bilateral nonspecific perinephric stranding more pronounced on the left. There is mild prominence of both ureters to the level of the urinary bladder which is completely decompressed. BLADDER: The bladder is completely decompressed with Estevez catheter in place GASTROINTESTINAL TRACT: No bowel obstruction. Normal appendix. Sigmoid diverticulosis without diverticulitis. ABDOMINAL WALL: No significant hernia is appreciated. LYMPH NODES: Small retroperitoneal lymph nodes which are not pathologically enlarged by CT criteria VASCULAR: Unremarkable. PELVIC VISCERA: Enlarged prostate measuring 5.9 cm. OSSEOUS STRUCTURES: There is a lucent lesion in the inferior endplate of the L4 vertebral body measuring 1.9 x 1.8 x 1.4 cm with a thin sclerotic margin. Degenerative disc disease greatest at L4-L5 and L5-S1. CT/CT abdomen pelvis wo IV con IMPRESSION: 1. The bladder is completely decompressed with a Estevez catheter in place. There is mild prominence of the left renal collecting system and bilateral ureters to the level of the urinary bladder which is completely decompressed. There is bilateral perinephric stranding more pronounced on the left. No obstructing calculi. A small nonobstructing calculus in the upper pole of the left kidney. 2. Enlarged prostate measuring 5.9 cm. 3. Lucent lesion in the inferior endplate of the L4 vertebral body measuring 1.9 x 1.8 x 1.4 cm with a thin sclerotic margin. This may represent a large Schmorl's node. Fleischner guidelines were followed. Electronically signed by: Tarun Llanes MD 04/01/2024 12:36 AM EDT RP Medications Administered Generic Name Dose Route Start Last Admin Trade Name Freq PRN Reason Stop Dose Admin Dextrose 250 mls @ 750 mls/hr 04/01/24 00:52 04/01/24 00:58 D10 IV 750 mls/hr Q15M PRN Administration per Hypoglycemia Standing Ord. Sodium Chloride 1,000 mls @ 999 mls/hr 04/01/24 01:00 04/01/24 01:07 Ns IV 04/01/24 02:00 999 mls/hr .Q1H1M ONE Administration Discontinued Medications Generic Name Dose Route Start Last Admin Trade Name Freq PRN Reason Stop Dose Admin Hydrocortisone Sodium Succinate 50 mg 04/01/24 01:17 04/01/24 01:26 Hydrocortisone Sod Succ/Pf 100 Mg Vial IVPUSH 04/01/24 01:18 50 mg ONCE ONE Administration Sodium Chloride 1,000 mls @ 999 mls/hr 03/31/24 23:49 04/01/24 01:10 Ns IV 04/01/24 00:49 0 mls/hr .Q1H1M ONE Titration Sodium Chloride 1,000 mls @ 999 mls/hr 03/31/24 23:50 04/01/24 00:57 Ns IV 04/01/24 00:50 Infused .Q1H1M ONE Infusion Ceftriaxone Sodium 2 gm/ 50 mls @ 100 mls/hr 04/01/24 00:56 04/01/24 01:00 Sodium Chloride IV 04/01/24 01:12 100 mls/hr ONCE ONE Administration Ondansetron HCl 4 mg 03/31/24 23:49 04/01/24 00:31 Ondansetron Hcl 4 Mg/2 Ml Vial IVPUSH 03/31/24 23:50 4 mg ONCE ONE Administration Critical Care Time Critical Care Time Critical Care Time: Yes Total Critical Care Time: 60 Attestation: The patient was critically ill with a high probability of imminent or life threatening deterioration. I spent greater than 65???minutes of discontinuous time evaluating the patient,delivering critical care at the bedside, discussing and evaluating pertinent data with consultants. Critical care time does not include time spent performing separately billable procedures or teaching. Total time spent performing critical care was 60???minutes. Discharge Plan Discharge Clinical Impression: Acute UTI, Acute sepsis Patient Disposition: Admitted As Inpatient Print Language: Ecuadorean
--- NOTE | 2024-03-31 23:49 | ECG_ITS ---
Test Reason : HYPOTENSION Blood Pressure : / mmHG Vent. Rate : 111 BPM Atrial Rate : 111 BPM P-R Int : 124 ms QRS Dur : 108 ms QT Int : 332 ms P-R-T Axes : 040 036 027 degrees QTc Int : 451 ms Sinus tachycardia Nonspecific T wave abnormality Abnormal ECG When compared with ECG of 09-JUL-2019 00:25, Nonspecific T wave abnormality now evident in Inferior leads Nonspecific T wave abnormality now evident in Anterior leads Heart rate has increased Referred By: Tucker Mabry Electronically Signed By:JOY GONZALEZ
[2024-03-31] MEDS: 0.9 % Sodium Chloride 1,000 ML 999 ML IV ×2 (23:56→23:57)
[2024-04-01] VITALS (33 sets, daily range): BP systolic 80–132; BP diastolic 32–93; PULSE 89–110; RESP 15–32; TEMP 36.4–37.1; O2SAT 89–98
--- NOTE | 2024-04-01 00:10 | PC.NURSE ---
healthcare interpreter at bedside. pt biba from home, a&ox4, respirations even and unlabored. pt reports x3 days he has had diarrhea but per pt [employer] pt has been constipated with blood in stool. pt also reports he has been nauseous. pt denies shortness of breath and chest pain. on arrival, pt tachy 105-110, and noted to be hypotensive. at bedside, reports pt is not meeting sepsis criteria. per place, nolasco. 18F nolasco placed at this time, pt tolerated well. dark yellow cloudy urine voided. pt taken to CT. 22G placed in right hand, iv fluids administered.
--- NOTE | 2024-04-01 00:30 | PC.NURSE ---
1000ml of dark yellow urine voided into nolasco at this time.
[2024-04-01] MEDS: ondansetron HCL 4 MG/2 ML VIAL IVPUSH (00:31)
--- NOTE | 2024-04-01 00:37 | PC.NURSE ---
pt noted to be more tired, alert to name and touch, called to bedside. pt POC 66. pt fluids placed on pressure bag. sepsis alert called.
[2024-04-01 00:43] LABS: Glucose, Whole Blood 66 mg/dL (60-115)
[2024-04-01 00:44] LABS: Appearance Urine Turbid; Color Urine Dark Yellow; Glucose Urine UA Negative (Negative); Leukocyte Esterase Urine Large (3+) (Negative); Nitrite Urine Negative (Negative); PH 5.5 (5.0-9.0); UMIC TRIGGER UACC YES; Urine Blood Large (3+) (Negative); Urine Ketones Trace mg/dL (Negative); Urine Protein 100 (2+) mg/dL (Neg-Trace)
[2024-04-01 00:52] LABS: COVID-19 Test Negative (Negative); IDNOW Serial# 08D9AD1C
[2024-04-01 00:52] LABS: Hematocrit 33.1 % (42.0-52.0); Hemoglobin 11.6 g/dl (14.0-18.0); Mean Corpuscular Hemoglobin 31.4 pg (27.0-33.0); Mean Corpuscular Volume 89.5 fL (80.0-98.0); Mean Platelet Volume 10.4 fL (9.4-12.4); Platelet Count 156 X10*3/uL (160-400); Red Cell Distribution Width 14.4 % (11.0-16.0)
[2024-04-01 00:53] LABS: WBC ABN SCTR FOR CBC 1
[2024-04-01 00:54] LABS: White Blood Count 34.3 X10*3/uL (4.8-10.8)
--- NOTE | 2024-04-01 00:54 | MHC.EDTECH ---
700ml emptied from nolasco bag, urine sample sent.
[2024-04-01 00:56] LABS: Bacteria Urine 4+ (None Seen); UACC Culture Trigger YES; WBC Urine >50 /HPF (0-5)
[2024-04-01] MEDS: Dextrose 10 % 250 ML 750 ML IV ×2 (00:58→01:45)
[2024-04-01] MEDS: cefTRIAXone sodium 2 GM in 0.9 % Sodium Chloride 50 ML IV ×2 (01:00→20:01)
[2024-04-01] MEDS: 0.9 % Sodium Chloride 1,000 ML 999 ML IV (01:07)
--- NOTE | 2024-04-01 01:07 | PC.NURSE ---
3rd fluid bolus begun at this time. pt medicated per mar with antibiotics and dextrose drip begun for POC.
[2024-04-01 01:11] LABS: Lactic Acid 2.9 mmol/L (0.5-2.0)
[2024-04-01 01:12] LABS: Alanine Aminotransferase 47 U/L (0-40); Albumin Level 3.1 g/dL (3.5-5.0); Alkaline Phosphatase 132 U/L (39-117); Anion Gap 19 (12-20); Aspartate Amino Transferase 109 U/L (5-37); Bilirubin Total 0.5 mg/dL (0.0-1.0); Blood Urea Nitrogen 46 mg/dL (9-16); Calcium 8.4 mg/dL (8.4-10.2); Carbon Dioxide 15 mmol/L (22-29); Chloride 104 mmol/L (96-108); Estimated Glomerular Filt Rate 13; Glucose Random 107 mg/dL (60-115); Potassium 3.2 mmol/L (3.3-5.1); Sodium 135 mmol/L (135-145); Total Protein 5.9 g/dL (6.5-8.0)
--- OUTSIDE RECORDS SUMMARY | 2024-04-01 01:22 | XMS_ITS | Continuity of Care Document ---
Author Organization [facility] Adult Address [address] [place] [address]- Care Team Providers Care Guard Captain Name Role Phone Ivanna Keller NP Primary Care Physician En[place] [facility] Date(s): 03/07/21 - 04/06/21 [facility] [address] [place] [address]- Allergies, Adverse Reactions, Alerts No Known Medication Allergies Medications amLODIPine 10 mg oral tablet 1 tablet, By Mouth, Daily, # 90 tablet, 1 Refills, Maintenance, 02/23/21 9:38:00 EDT, [facility], 164.3, cm, 01/06/21 13:12:00 EDT, Height, 58.9, kg, 01/26/21 13:00:00 EDT, Dry Weight Start Date: 02/23/21 Status: Ordered calcium-vitamin D 600 mg-400 intl units oral tablet 1 tablet, By Mouth, 2 times a day, # 60 tablet, 11 Refills, Maintenance, 03/03/21 13:28:00 EDT, [facility], 30, TAKE ONE TABLET BY MOUTH two (2) times a day, 164.3, cm, 01/06/21 13:12:00 EDT, Height, 58.9, kg, 01/26/21 13:00:00 EDT, Dry Weight Start Date: 03/03/21 Status: Ordered cholestyramine 4 g/5.5 g oral powder for reconstitution = 4 Gm, By Mouth, 2 times a day, # 60 each, 3 Refills, Maintenance, 03/08/21 13:22:00 EDT, REC Powder, [place], [place] - [phone], Partial fill upon patient request if the prescription is for a schedule II opioid drug., 164.3, cm,... Start Date: 03/08/21 Status: Ordered cloNIDine 0.1 mg/24 hr transdermal film, extended release 1 patch, Topically, Daily, CHANGE DAILY ROTATE PLACEMENT, # 90 patch, 1 Refills, Maintenance, 01/17/21 9:19:00 EDT, Patch, [place], [place] - [id number], Partial fill upon patient request if the prescription is for a schedule II opioi... Start Date: 01/17/21 Stop Date: 07/16/21 Status: Ordered duloxetine 60 mg oral enteric coated capsule 1 capsule = 60 mg, By Mouth, Daily, # 30 capsule, 5 Refills, Maintenance, 01/22/21 14:24:00 EDT, ECCapsule, [place], [place] - [id number], Partial fill upon patient request if the prescription is for a schedule II opioid drug., 164.3... Start Date: 01/22/21 Stop Date: 07/21/21 Status: Ordered famotidine 40 mg oral tablet 1 tablet = 40 mg, By Mouth, 2 times a day, # 60 tablet, 2 Refills, Maintenance, 01/03/21 15:00:00 EDT, Tablet, [facility]/pharmacy #[id number], Partial fill upon patient request if the prescription is for a schedule II opioid drug., 164.3, cm, 01/03/21 14:30:00 ED... Start Date: 01/03/21 Stop Date: 04/03/21 Status: Ordered lisinopril 40 mg oral tablet 1 tablet, By Mouth, Daily, # 90 tablet, 4 Refills, [facility], 164.3, cm, 03/08/21 12:48:00 EDT, Height, 58.9, kg, 01/26/21 13:00:00 EDT, Dry Weight Start Date: 03/28/21 Status: Ordered montelukast 10 mg oral tablet 1, tablet, By Mouth, Daily, # 90 tablet, Refills 0, Route to Pharmacy Electronically, [facility], 164.3, cm, 03/08/21 12:48:00 EDT, Height, 58.9, kg, 01/26/21 13:00:00 EDT, Dry Weight Start Date: 03/28/21 Status: Ordered omeprazole 40 mg oral enteric coated capsule 1 capsule = 40 mg, By Mouth, Daily, # 90 capsule, 2 Refills, Maintenance, 01/26/21 14:22:00 EDT, ECCapsule, [place], [place] - [id number], Partial fill upon patient request if the prescription is for a schedule II opioid drug., 164.3... Start Date: 01/26/21 Status: Ordered omeprazole 40 mg oral enteric coated capsule 1 capsule = 40 mg, By Mouth, Daily, # 90 capsule, 3 Refills, Maintenance, 01/26/21 14:57:00 EDT, ECCapsule, [facility]/pharmacy #[id number], Partial fill upon patient request if the prescription is for a schedule II opioid drug., 164.3, cm, 01/06/21 13:12:00 EDT,... Start Date: 01/26/21 Status: Ordered predniSONE 5 mg oral tablet See Instructions, 20mg (4 tablets) daily x 7 days, then 10mg (2 tablets) daily x7 days then 5mg (1 tablet) daily x7 days then stop, # 60 tablet, 0 Refills, Maintenance, 04/04/21 13:21:00 EDT, Tablet,[place], [place] - [id number], Par... Start Date: 04/04/21 Status: Ordered propranolol 20 mg oral tablet 1, tablet, By Mouth, 3 times a day, # 90 tablet, Refills 5, Tot. Refills 5, Maintenance, 03/15/21 10:28:00 EDT, Route to Pharmacy Electronically, [place], [place] - [id number], Please cancel rx done under Barbara Padilla MD., 164.3... Start Date: 03/15/21 Status: Ordered propylthiouracil 50 mg oral tablet 2 tablet = 100 mg, By Mouth, Every 8 hours, # 180 tablet, 6 Refills, Maintenance, 01/10/21 10:34:00EDT, Table[facility], [id number], Partial fill upon patient request if the prescription is for a schedule II opioid drug., 164.3, cm, 01/06/21 13:12:00... Start Date: 01/10/21 Stop Date: 08/08/21 Status: Ordered Problem List Condition Effective Dates Status Health Status Inform ant Anxiety(Confirmed) Active Blindness(Confirmed) Active COPD (chronic obstructive pu lmonary disease)(Confirmed) Active Depression(Confirmed) Active HLD (hyperlipidemia)(Confirmed) Active HTN (hypertension)(Confirmed) Active Hyperthyroidism(Confirmed) Active Osteoporosis(Confirmed) Active Prediabetes(Confirmed) Active Vitamin D deficiency(Confirmed) Active Social History Social History Type Response Tobacco Use: 4 or less cigar ettes(less than 1/4 pack)/day in last 30 days. Other: 3-3 packs a day for about 30-40. Now 3-4 day. Sex
--- OUTSIDE RECORDS SUMMARY | 2024-04-01 01:22 | XMS_ITS | Continuity of Care Document ---
Author Organization [facility] Adult Address [address] [place] [address]- Care Team Providers Care Roll On Man Name Role Phone Ivanna Keller NP Primary Care Physician [id number] Date(s[facility] 11/23/20 - 11/30/20 [facility] Adult [address] [place] [address]- Encounter Diagnosis Shivering(Discharge Diagnosis) - 11/23/20 Attending Physician: Kellie JIMENES, Alesia Allergies, Adverse Reactions, Alerts No Known Medication Allergies Medications amLODIPine 10 mg oral tablet 1 tablet = 10 mg, By Mouth, Daily, # 90 tablet, 1 Refills, Maintenance, 07/21/20 9:21:00 EST, Tablet, [place], [place] - [id number], Partial fill upon patient request if the prescription is for a schedule II opioid drug., 164.3, cm, 1... Start Date: 07/21/20 Stop Date: 01/17/21 Status: Ordered Breo Ellipta 100 mcg-25 mcg/inh inhalation powder 0 Refills, Maintenance, 06/15/20 15:28:00 EST Start Date: 06/15/20 Status: Ordered calcium-vitamin D 600 mg-400 intl units oral tablet 0 Refills, Maintenance, 06/15/20 15:28:00 EST Start Date: 06/15/20 Status: Ordered cloNIDine 0.1 mg/24 hr transdermal film, extended release 1 patch, Topically, Daily, CHANGE DAILY ROTATE PLACEMENT, # 90 patch, 1 Refills, Maintenance, 07/21/20 9:19:00 EST, Patch, [place], [place] - [id number], Partial fill upon patient request if the prescription is for a schedule II opioi... Start Date: 07/21/20 Stop Date: 01/17/21 Status: Ordered Colace sodium 100 mg oral capsule 100 mg, 1, capsule, By Mouth, 2 times a day, # 180 capsule, Refills 0, Tot. Refills 0, Maintenance,10/28/20 15:36:00 EDT, Route to Pharmacy Electronically, [facility] #[id number], Partial fill upon patient request if the prescription is for a schedule II... Start Date: 10/28/20 Stop Date: 01/26/21 Status: Ordered duloxetine 60 mg oral enteric coated capsule 1 capsule = 60 mg, By Mouth, Daily, # 30 capsule, 1 Refills, Maintenance, 11/23/20 14:24:00 EDT, ECCapsule, [place], [place] - [phone], Partial fill upon patient request if the prescription is for a schedule II opioid drug., 164.3... Start Date: 11/23/20 Stop Date: 01/22/21 Status: Ordered lisinopril 40 mg oral tablet 0 Refills, Maintenance, 06/15/20 15:28:00 EST Start Date: 06/15/20 Status: Ordered montelukast 10 mg oral tablet Refills 0, Maintenance, 06/15/20 15:28:00 EST Start Date: 06/15/20 Status: Ordered omeprazole 20 mg oral delayed release tablet 1 tablet = 20 mg, By Mouth, Daily, # 30 tablet, 0 Refills, Maintenance, 10/25/20 12:17:00 EDT, CR Tablet, [facility]/pharmacy #[id number], Partial fill upon patient request if the prescription is for a schedule II opioid drug., 164.3, cm, 08/29/20 8:40:00 EST, Height Start Date: 10/25/20 Status: Ordered Prolia 60 mg/mL subcutaneous solution See Instructions, 1 mL Subcutaneous Injection Every 6 months 3 days, # 1 each, 1 Refills, Maintenance, 06/27/20 9:26:00 EST, Solution, [place], [place] - [id number], Partial fill upon patient request, 164.3, cm, 06/15/20 14:33:00 EST,... Start Date: 06/27/20 Status: Ordered Problem List Condition Effective Dates Status Health Status Inform ant Anxiety(Confirmed) Active Blindness(Confirmed) Active COPD (chronic obstructive pu lmonary disease)(Confirmed) Active Depression(Confirmed) Active HLD (hyperlipidemia)(Confirmed) Active HTN (hypertension)(Confirmed) Active Osteoporosis(Confirmed) Active Vitamin D deficiency(Confirmed) Active Diagnosis Diagnosis Type Effective Dates Health Status Clini gilmar Service Informant Shivering Discharge Diagnosis 11/23/20 Vital Signs Most recent to oldest [Reference Range]: 1 Height 164.3 cm (11/23/20 1:48 PM) Social History Social History Type Response Tobacco Use: 4 or less cigar ettes(less than 1/4 pack)/day in last 30 days. Other: 3-3 packs a day for about 30-40. Now 3-4 day. Sex
--- OUTSIDE RECORDS SUMMARY | 2024-04-01 01:22 | XMS_ITS | Continuity of Care Document ---
Author Organization [facility] Address [address] [place] [address]- Care Team Providers Care Saxophone Assembler Name Role Phone Ivanna Keller NP Primary Care Physician Encounter [facility] Date(s): 12/12/21 - 01/11/22 [facility] [address] [place] [address] Allergies, Adverse Reactions, Alerts No Known Medication Allergies Medications Breo Ellipta 100 mcg-25 mcg/inh inhalation powder 1 puffs, Inhalation, Daily, # 60 Unknown, 8 Refills, [facility], 270, INHALE 1 PUFF BY MOUTH INTO THE lungs DAILY, 170, cm, 07/20/21 8:17:00 EST, Height, 66, kg, 07/19/21 13:21:00 EST, Dry Weight Start Date: 09/20/21 Status: Ordered calcium-vitamin D 600 mg-400 intl units oral tablet 1 tablet, By Mouth, 2 times a day, # 60 tablet, 11 Refills, Maintenance, 03/03/21 13:28:00 EDT, [facility], 30, TAKE ONE TABLET BY MOUTH two (2) times a day, 164.3, cm, 01/06/21 13:12:00 EDT, Height, 58.9, kg, 01/26/21 13:00:00 EDT, Dry Weight Start Date: 03/03/21 Status: Ordered cloNIDine 0.1 mg/24 hr transdermal film, extended release 1 patch, Topically, Daily, CHANGE DAILY ROTATE PLACEMENT, # 90 patch, 1 Refills, Maintenance, 01/17/21 9:19:00 EDT, Patch, [facility] [place] [place] - [id number], Partial fill upon patient request if the prescription is for a schedule II opioi... Start Date: 01/17/21 Stop Date: 07/16/21 Status: Ordered colchicine 0.6 mg oral tablet 0.6 mg, 1, tablet, By Mouth, Every hour, PRN, # 10 tablet, Refills 0, Maintenance, for gout pain, 05/31/21 13:29:00 EDT, Partial fill upon patient request if the prescription is for a schedule II opioid drug. Start Date: 05/31/21 Status: Ordered duloxetine 60 mg oral enteric coated capsule 1 capsule = 60 mg, By Mouth, Daily, # 30 capsule, 5 Refills, Maintenance, 01/22/21 14:24:00 EDT, ECCapsule, [place], [place] - [phone], Partial fill upon patient request if the prescription is for a schedule II opioid drug., 164.3... Start Date: 01/22/21 Stop Date: 07/21/21 Status: Ordered famotidine 40 mg oral tablet 1 tablet = 40 mg, By Mouth, 2 times a day, # 60 tablet, 2 Refills, Maintenance, 01/03/21 15:00:00 EDT, Tablet, [facility]/pharmacy #[id number], Partial fill upon patient request if the prescription is for a schedule II opioid drug., 164.3, cm, 01/03/21 14:30:00 ED... Start Date: 01/03/21 Stop Date: 04/03/21 Status: Ordered ibuprofen 800 mg oral tablet 800 mg, 1, tablet, By Mouth, Daily, PRN, # 30 tablet, Refills 0, Tot. Refills 0, Maintenance, Pain , Moderate, 12/24/21 12:52:00 EDT, Route to Pharmacy Electronically, [place], [place] - [id number], Partial fill upon patient request i... Start Date: 12/24/21 Status: Ordered lisinopril 40 mg oral tablet 1 tablet, By Mouth, Daily, # 90 tablet, 4 Refills, [facility], 164.3, cm, 03/08/21 12:48:00 EDT, Height, 58.9, kg, 01/26/21 13:00:00 EDT, Dry Weight Start Date: 03/28/21 Status: Ordered montelukast 10 mg oral tablet 1, tablet, By Mouth, Daily, # 90 tablet, Refills 1, Tot. Refills 1, 12/25/21 19:23:00 EDT, Route toPharmacy Electronically, [facility] [id number], 170, cm, 12/18/21 12:55:00EDT, Height, 66, kg, 07/19/21 13:21:00 EST, Dry Weight Start Date: 12/25/21 Status: Ordered omeprazole 40 mg oral enteric coated capsule 1 capsule = 40 mg, By Mouth, Daily, # 90 capsule, 2 Refills, Maintenance, 01/26/21 14:22:00 EDT, ECCapsule, [facility] [id number], Partial fill upon patient request if the prescription is for a schedule II opioid drug., 164.3... Start Date: 01/26/21 Status: Ordered omeprazole 40 mg oral enteric coated capsule 1 capsule = 40 mg, By Mouth, Daily, # 90 capsule, 3 Refills, Maintenance, 01/26/21 14:57:00 EDT, ECCapsule, [facility]/pharmacy #[id number], Partial fill upon patient request if the prescription is for a schedule II opioid drug., 164.3, cm, 01/06/21 13:12:00 EDT,... Start Date: 01/26/21 Status: Ordered propranolol 20 mg oral tablet 1, tablet, By Mouth, 3 times a day, # 90 tablet, Refills 8, Route to Pharmacy Electronically, [facility], 170, cm, 07/20/21 8:17:00 EST, Height, 66, kg, 07/19/21 13:21:00 EST, Dry Weight Start Date: 09/20/21 Status: Ordered spironolactone 25 mg oral tablet 1, tablet, By Mouth, Daily, # 90 tablet, Refills 1, Tot. Refills 1, 12/25/21 19:23:00 EDT, Route toPharmacy Electronically, [facility] [id number], 170, cm, 12/18/21 12:55:00EDT, Height, 66, kg, 07/19/21 13:21:00 EST, Dry Weight Start Date: 12/25/21 Status: Ordered traMADol 50 mg oral tablet 1 tablet = 50 mg, By Mouth, Every 12 hours, PRN as needed for pain, 0 Refills, Maintenance, 05/31/21 13:29:00 EDT, Tablet, Partial fill upon patient request if the prescription is for a schedule II opioid drug. Start Date: 05/31/21 Status: Ordered Problem List Condition Effective Dates Status Health Status Inform ant Anxiety(Confirmed) Active Blindness(Confirmed) Active Cellulitis of foot, left(Confirmed) Active Cellulitis of foot, left(Confirmed) Active COPD (chronic obstructive pu lmonary disease)(Confirmed) [...]
--- OUTSIDE RECORDS SUMMARY | 2024-04-01 01:22 | XMS_ITS | Continuity of Care Document ---
Author Organization [facility] Address [address] [place] [address]- Care Team Providers Care Jumpbasting Collar Baster Name Role Phone Ivanna Keller NP Primary Care Physician Encounter [facility] Date(s): 12/15/20 - 01/14/21 [facility] [address] [place] [address]- Allergies, Adverse Reactions, Alerts No Known Medication Allergies Medications amLODIPine 10 mg oral tablet 1 tablet = 10 mg, By Mouth, Daily, # 90 tablet, 1 Refills, Maintenance, 07/21/20 9:21:00 EST, Tablet, [place], [place] - [id number], Partial fill upon patient request if the prescription is for a schedule II opioid drug., 164.3, cm, 1... Start Date: 07/21/20 Stop Date: 01/17/21 Status: Ordered calcium-vitamin D 600 mg-400 intl units oral tablet 0 Refills, Maintenance, 06/15/20 15:28:00 EST Start Date: 06/15/20 Status: Ordered cloNIDine 0.1 mg/24 hr transdermal film, extended release 1 patch, Topically, Daily, for 90 days, CHANGE DAILY ROTATE PLACEMENT, # 90 patch, 1 Refills, Hard Stop 01/17/21 9:19:00 EDT, 07/21/20 9:19:00 EST, Patch, [place], [place] - [id number], Partial fill upon patient request if the prescri... Start Date: 07/21/20 Stop Date: 01/17/21 Status: Ordered cloNIDine 0.1 mg/24 hr transdermal film, extended release 1 patch, Topically, Daily, CHANGE DAILY ROTATE PLACEMENT, # 90 patch, 1 Refills, Maintenance, 01/17/21 9:19:00 EDT, Patch, [place], [place] - [id number], Partial fill upon patient request if the prescription is for a schedule II opioi... Start Date: 01/17/21 Stop Date: 07/16/21 Status: Ordered Colace sodium 100 mg oral capsule 100 mg, 1, capsule, By Mouth, 2 times a day, # 180 capsule, Refills 0, Tot. Refills 0, Maintenance,10/28/20 15:36:00 EDT, Route to Pharmacy Electronically, [facility]/pharmacy #[id number], Partial fill upon patient request if the prescription is for a schedule II... Start Date: 10/28/20 Stop Date: 01/26/21 Status: Ordered duloxetine 60 mg oral enteric coated capsule 1 capsule = 60 mg, By Mouth, Daily, # 30 capsule, 1 Refills, Maintenance, 11/23/20 14:24:00 EDT, ECCapsule, [place], [place] - [id number], Partial fill upon patient request if the prescription is for a schedule II opioid drug., 164.3... Start Date: 11/23/20 Stop Date: 01/22/21 Status: Ordered famotidine 20 mg oral tablet 20 mg, 1, tablet, By Mouth, Daily at bedtime, for 21 days, # 21 tablet, Refills 0, Tot. Refills 0, Acute 01/16/21 14:49:00 EDT, 12/26/20 14:49:00 EDT, Route to Pharmacy Electronically, [facility], Partial fill upon patient request if the... Start Date: 12/26/20 Stop Date: 01/16/21 Status: Ordered famotidine 40 mg oral tablet 1 tablet = 40 mg, By Mouth, 2 times a day, # 60 tablet, 2 Refills, Maintenance, 01/03/21 15:00:00 EDT, Tablet, [facility]/pharmacy #[id number], Partial fill upon patient request if the prescription is for a schedule II opioid drug., 164.3, cm, 01/03/21 14:30:00 ED... Start Date: 01/03/21 Stop Date: 04/03/21 Status: Ordered lisinopril 40 mg oral tablet 0 Refills, Maintenance, 06/15/20 15:28:00 EST Start Date: 06/15/20 Status: Ordered Prolia 60 mg/mL subcutaneous solution See Instructions, 1 mL Subcutaneous Injection Every 6 months 3 days, # 1 each, 1 Refills, Maintenance, 06/27/20 9:26:00 EST, Solution, [facility] [place] [place] - [id number], Partial fill upon patient request, 164.3, cm, 06/15/20 14:33:00 EST,... Start Date: 06/27/20 Status: Ordered propranolol 20 mg oral tablet 20 mg, 1, tablet, By Mouth, 3 times a day, # 90 tablet, Refills 0, Tot. Refills 0, Maintenance, 12/07/20 13:13:00 EDT, Route to Pharmacy Electronically, [facility], Partial fill upon patient request if the prescription is for a schedule... Start Date: 12/07/20 Status: Ordered propylthiouracil 50 mg oral tablet 2 tablet = 100 mg, By Mouth, Every 8 hours, # 180 tablet, 6 Refills, Maintenance, 01/10/21 10:34:00EDT, Tablet, [facility]/pharmacy #[id number], Partial fill upon patient request if the prescription is for a schedule II opioid drug., 164.3, cm, 01/06/21 13:12:00... Start Date: 01/10/21 Stop Date: 08/08/21 Status: Ordered Problem List Condition Effective Dates Status Health Status Inform ant Anxiety(Confirmed) Active Blindness(Confirmed) Active COPD (chronic obstructive pu lmonary disease)(Confirmed) Active Depression(Confirmed) Active HLD (hyperlipidemia)(Confirmed) Active HTN (hypertension)(Confirmed) Active Hyperthyroidism(Confirmed) Active Osteoporosis(Confirmed) Active Vitamin D deficiency(Confirmed) Active Social History Social History Type Response Tobacco Use: 4 or less cigar ettes(less than 1/4 pack)/day in last 30 days. Other: 3-3 packs a day for about 30-40. Now 3-4 day. Sex
--- OUTSIDE RECORDS SUMMARY | 2024-04-01 01:22 | XMS_ITS | Continuity of Care Document ---
Author Organization [facility] Address [address] [place] [address]- Care Team Providers Care Toy Trains And Accessories Salesperson Name Role Phone Not on Staff, PCP Primary Care Physician Unavail able Encounter [facility] [place] Date(s): 09/26/23 - 10/26/23 [facility] [address] [place] [address]- [place] Allergies, Adverse Reactions, Alerts No Known Medication Allergies Medications Breo Ellipta 100 mcg-25 mcg/inh inhalation powder 1 puffs, Inhalation, Daily, # 60 Unknown, 8 Refills, [facility], [facility], INHALE 1 PUFF BY MOUTH INTO THE lungs DAILY, 170, cm, 07/20/21 8:17:00 EST, Height, 66, kg, 07/19/21 13:21:00 EST, Dry Weight Start Date: 09/20/21 Status: Ordered calcium-vitamin D 600 mg-400 intl units oral tablet 1 tablet, By Mouth, 2 times a day, # 60 tablet, 2 Refills, Maintenance, 04/15/22 14:16:00 EDT, [place], [place] - [id number], 30, 1 tablet By Mouth 2 times a day, 170, cm, 01/18/22 12:36:00 EDT, Height, 66, kg, 07/19/21 13:21:00 EST,... Start Date: 04/15/22 Status: Ordered cloNIDine 0.1 mg/24 hr transdermal film, extended release 1 patch, Topically, Daily, CHANGE DAILY ROTATE PLACEMENT, # 90 patch, 1 Refills, Maintenance, 01/17/21 9:19:00 EDT, Patch, [place], [place] - [id number], Partial fill upon patient request if the [...] 5 Refills, Maintenance, 01/22/21 14:24:00 EDT, ECCapsule, [place], [place] - [id number], Partial fill upon patient request if the prescription is for a schedule II opioid drug., 164.3... Start Date: 01/22/21 Stop Date: 07/21/21 Status: Ordered famotidine 40 mg oral tablet 1 tablet = 40 mg, By Mouth, 2 times a day, # 60 tablet, 2 Refills, Maintenance, 01/03/21 15:00:00 EDT, Tablet, [facility]/pharmacy #[id number], Partial fill upon patient request if the prescription is for a schedule II opioid drug., 164.3, cm, 01/03/21 14:30:00 ED... Start Date: 01/03/21 Stop Date: 04/03/21 Status: Ordered ibuprofen 800 mg oral tablet 800 mg, 1, tablet, By Mouth, Daily, PRN, # 30 tablet, Refills 0, Tot. Refills 0, Maintenance, Pain , Moderate, 12/24/21 12:52:00 EDT, Route to Pharmacy Electronically, [place], [place] - [id number], Partial fill upon patient request i... Start Date: 12/24/21 Status: Ordered levothyroxine 0.112 mg oral tablet 1 tablet = 112 mcg, By Mouth, Daily, # 30 tablet, 5 Refills, Maintenance, 09/30/23 10:42:00 EST, Tablet, [place], [place] - [id number], Partial fill upon patient request if the prescription is for a schedule II opioid drug., 170, cm,... Start Date: 09/30/23 Status: Ordered lisinopril 40 mg oral tablet 1 tablet, By Mouth, Daily, # 90 tablet, 0 Refills, 04/15/22 14:16:00 EDT, [facility] [id number], 170, cm, 01/18/22 12:36:00 EDT, Height, 66, kg, 07/19/21 13:21:00 EST, Dry Weight Start Date: 04/15/22 Status: Ordered montelukast 10 mg oral tablet 1, tablet, By Mouth, Daily, # 90 tablet, Refills 1, Tot. Refills 1, 04/15/22 14:16:00 EDT, Route toPharmacy Electronically, [facility], [facility] [id number], 170, cm, 01/18/22 12:36:00EDT, Height, 66, kg, 07/19/21 13:21:00 EST, Dry Weight Start Date: 04/15/22 Status: Ordered omeprazole 40 mg oral enteric coated capsule 1 capsule = 40 mg, By Mouth, Daily, # 90 capsule, 2 Refills, Maintenance, 01/26/21 14:22:00 EDT, ECCapsule, [facility] [id number], Partial fill upon patient request if the prescription is for a schedule II opioid drug., 164.3... Start Date: 01/26/21 Status: Ordered omeprazole 40 mg oral enteric coated capsule 1 capsule = 40 mg, By Mouth, Daily, # 90 capsule, 3 Refills, Maintenance, 01/26/21 14:57:00 EDT, ECCapsule, [facility]/pharmacy #[id number], Partial fill upon patient request if the prescription is for a schedule II opioid drug., 164.3, cm, 01/06/21 13:12:00 EDT,... Start Date: 01/26/21 Status: Ordered propranolol 20 mg oral tablet 1, tablet, By Mouth, 3 times a day, # 90 tablet, Refills 8, Route to Pharmacy Electronically, [facility], 170, cm, 07/20/21 8:17:00 EST, Height, 66, kg, 07/19/21 13:21:00 EST, Dry Weight Start Date: 09/20/21 Status: Ordered spironolactone 25 mg oral tablet 1, tablet, By Mouth, Daily, # 90 tablet, Refills 0, Tot. Refills 0, 04/15/22 14:16:00 EDT, Route toPharmacy Electronically, [facility] [place], [place] - [id number], 170, cm, 01/18/22 12:36:00EDT, Height, 66, kg, 07/19/21 13:21:00 EST, Dry Weight Start Date: 04/15/22 Status: Ordered traMADol 50 mg oral tablet 1 tablet = 50 mg, By Mouth, Every 12 hours, PRN as needed for pain, 0 Refills, Maintenance, 05/31/21 13:29:00 EDT, Tablet, Partial fill upon patient request if the prescription is for a schedule II opioid drug. Start Date: 05/31/21 Status: Ordered Problem List Condition Confirmation Course Effective Dates Status H ealth Status Informant Anxiety Confirmed Active Blindness Confirmed Active Cellulitis of foot, left Confirmed Active Cellulitis of foot, left Confirmed Active COPD (chronic obstructive pulmonary disease) Confirmed Active Depression Confirmed Active HLD (hyperlipidemia) Confirmed Active HTN (hypertension) Confirmed Active Hyperthyroidism Confirmed Active Osteoporosis Confirmed Active Prediabetes Confirmed Active Vitamin D deficiency Confirmed Active Social History Social History Type Response Tobacco Use: 4 or less cigar ettes(less than 1/4 pack)/day in last 30 days. Other: 3-3 packs a day for about 30-40. Now 3-4 day. Sex Patient Care team information Care Team Personnel Name: Seun Christian RN Position: [facility] RN Member Role: Primary Care Nurse Name: Not on Staff, PCP Position: [facility] Physician (General Medicine) Member Role: PCP Care Team Related Persons Name: FLACO DALAL Address: [place] [address]
--- OUTSIDE RECORDS SUMMARY | 2024-04-01 01:22 | XMS_ITS | Continuity of Care Document ---
Author Organization [facility] Adult Address [address] [place] [address]- Care Team Providers Care Quality Measurement Specialist Name Role Phone Ivanna Keller NP Primary Care Physician [id number] Date(s): 07/20/20 - 08/19/[address] [facility] Adult [address] [place] [address]- Allergies, Adverse Reactions, Alerts No Known Medication Allergies Medications amLODIPine 10 mg oral tablet 1 tablet = 10 mg, By Mouth, Daily, # 90 tablet, 1 Refills, Maintenance, 07/21/20 9:21:00 EST, Tablet, [place], [place] - [id number], Partial fill upon patient request if the [...] 1 Refills, Maintenance, 07/21/20 9:19:00 EST, Patch, [place], [place] - [id number], Partial fill upon patient request if the prescription is for a schedule II opioi... Start Date: 07/21/20 Stop Date: 01/17/21 Status: Ordered duloxetine 20 mg oral enteric coated capsule 0 Refills, Maintenance, 06/15/20 15:28:00 EST Start Date: 06/15/20 Status: Ordered lisinopril 40 mg oral tablet 0 Refills, Maintenance, 06/15/20 15:28:00 EST Start Date: 06/15/20 Status: Ordered montelukast 10 mg oral tablet Refills 0, Maintenance, 06/15/20 15:28:00 EST Start Date: 06/15/20 Status: Ordered Prolia 60 mg/mL subcutaneous solution See Instructions, 1 mL Subcutaneous Injection Every 6 months 3 days, # 1 each, 1 Refills, Maintenance, 06/27/20 9:26:00 EST, Solution, [facility] [place], [place] - [id number], Partial fill upon patient request, 164.3, cm, [...]
--- OUTSIDE RECORDS SUMMARY | 2024-04-01 01:22 | XMS_ITS | Continuity of Care Document ---
Author Organization [facility] Adult Address [address] [place] [address]- Care Team Providers Care Hog Sawyer Name Role Phone Ivanna Keller NP Primary Care Physician Encounter [facility] [place] Date(s): 12/06/20 - 12/13/20 [facility] Adult [address] [place] [address]- Encounter Diagnosis Tremor(Discharge Diagnosis) - 12/06/20 Attending Physician: Ivanna Keller NP Allergies, Adverse Reactions, Alerts No Known Medication Allergies Medications amLODIPine 10 mg oral tablet 1 tablet = 10 mg, By Mouth, Daily, # 90 tablet, 1 Refills, Maintenance, 07/21/20 9:21:00 EST, Tablet, [place], [place] - [id number], Partial fill upon patient request if the [...] 1 Refills, Maintenance, 07/21/20 9:19:00 EST, Patch, [place], [place] - [id number], Partial fill upon patient request if the prescription is for a schedule II opioi... Start Date: 07/21/20 Stop Date: 01/17/21 Status: Ordered Colace sodium 100 mg oral capsule 100 mg, 1, capsule, By Mouth, 2 times a day, # 180 capsule, Refills 0, Tot. Refills 0, Maintenance,10/28/20 15:36:00 EDT, Route to Pharmacy Electronically, [facility]/pharmacy #[id number], Partial fill upon patient request if the prescription is for a schedule II... Start Date: 10/28/20 Stop Date: 01/26/21 Status: Ordered duloxetine 60 mg oral enteric coated capsule 1 capsule = 60 mg, By Mouth, Daily, # 30 capsule, 1 Refills, Maintenance, 11/23/20 14:24:00 EDT, ECCapsule, [place], [place] - [id number], Partial fill upon patient request if the prescription is for a schedule II opioid drug., 164.3... Start Date: 11/23/20 Stop Date: 01/22/21 Status: Ordered lisinopril 40 mg oral tablet 0 Refills, Maintenance, 06/15/20 15:28:00 EST Start Date: 06/15/20 Status: Ordered methimazole 10 mg oral tablet 20 mg, 2, tablet, By Mouth, 2 times a day, # 120 tablet, Refills 0, Tot. Refills 0, Maintenance, 12/07/20 13:13:00 EDT, Route to Pharmacy Electronically, [facility] 3, Partial fill upon patient request if the prescription is for a schedule... Start Date: 12/07/20 Status: Ordered Milk of Magnesia 8% oral suspension 30 mL = 2.4 Gm, By Mouth, Daily at bedtime, PRN for constipation, for 5 days, # 360 mL, 0 Refills, Acute 12/18/20 14:40:00 EDT, 12/13/20 14:40:00 EDT, Suspension, [facility]/pharmacy #[id number], Partial fill upon patient request if the prescription is for a sched... Start Date: 12/13/20 Stop Date: 12/18/20 Status: Ordered Prolia 60 mg/mL subcutaneous solution See Instructions, 1 mL Subcutaneous Injection Every 6 months 3 days, # 1 each, 1 Refills, Maintenance, 06/27/20 9:26:00 EST, Solution, [place], [place] - [id number], Partial fill upon patient request, 164.3, cm, 06/15/20 14:33:00 EST,... Start Date: 06/27/20 Status: Ordered propranolol 20 mg oral tablet 20 mg, 1, tablet, By Mouth, 3 times a day, # 90 tablet, Refills 0, Tot. Refills 0, Maintenance, 12/07/20 13:13:00 EDT, Route to Pharmacy Electronically, [facility], Partial fill upon patient request if the prescription is for a schedule... Start Date: 12/07/20 Status: Ordered Problem List Condition Effective Dates Status Health Status Inform ant Anxiety(Confirmed) Active Blindness(Confirmed) Active COPD (chronic obstructive pu lmonary disease)(Confirmed) Active Depression(Confirmed) Active HLD (hyperlipidemia)(Confirmed) Active HTN (hypertension)(Confirmed) Active Osteoporosis(Confirmed) Active Vitamin D deficiency(Confirmed) Active Diagnosis Diagnosis Type Effective Dates Health Status Clini gilmar Service Informant Tremor Discharge Diagnosis 12/06/20 Vital Signs Most recent to oldest [Reference Range]: 1 Height 164.3 cm (12/06/20 2:12 PM) Weight 59.5 kg (12/06/20 2:12 PM) Oxygen Saturation [94-100 %] 98 % (12/06/20 2:12 PM) Pulse Rate [55-90 bpm] 132 bpm *H* (12/06/20 2:12 PM) Body Mass Index [18.5-24.99] 22.04 (12/06/20 2:12 PM) Blood Pressure [90-138/55-84 mm Hg] 102/ 62mm Hg (12/06/20 2:12 PM) Temperature [96.8-100.4 DegF] 99.8 DegF (12/06/20 2:12 PM) Mode of Delivery (Oxygen) Room air (12/06/20 2:12 PM) Blood pressure sites Arm, left (12/06/20 2:12 PM) Temperature Route Oral (12/06/20 2:12 PM) Weight Obtained Via Standing scale (12/06/20 2:12 PM) Social History Social History Type Response Tobacco Use: 4 or less cigar ettes(less than 1/4 pack)/day in last 30 days. Other: 3-3 packs a day for about 30-40. Now 3-4 day. Sex
--- OUTSIDE RECORDS SUMMARY | 2024-04-01 01:23 | XMS_ITS | Continuity of Care Document ---
Author Organization [facility] Adult Address [address] [place] [address]- Care Team Providers Care Bean Picker Name Role Phone Ivanna Keller NP Primary Care Physician [phone] Encounter [facility] [place] Date(s): 09/26/20 - 10/26/20 [facility] Adult [address] [place] [address]- Allergies, Adverse Reactions, Alerts No Known Medication Allergies Medications amLODIPine 10 mg oral tablet 1 tablet = 10 mg, By Mouth, Daily, # 90 tablet, 1 Refills, Maintenance, 07/21/20 9:21:00 EST, Tablet, [place], [place] - [id number], Partial fill upon patient request if the [...] 1 Refills, Maintenance, 07/21/20 9:19:00 EST, Patch, [place], [place] - [id number], Partial fill upon patient request if the prescription is for a schedule II opioi... Start Date: 07/21/20 Stop Date: 01/17/21 Status: Ordered duloxetine 20 mg oral enteric coated capsule 1 capsule = 20 mg, By Mouth, Daily, # 90 capsule, 0 Refills, Maintenance, 09/30/20 11:20:00 EST, Capsule, [place], [place] - [id number], Partial fill upon patient request if the prescription is for a schedule II opioid drug., 164.3, c... Start Date: 09/30/20 Status: Ordered lisinopril 40 mg oral tablet 0 Refills, Maintenance, 06/15/20 15:28:00 EST Start Date: 06/15/20 Status: Ordered montelukast 10 mg oral tablet Refills 0, Maintenance, 06/15/20 15:28:00 EST Start Date: 06/15/20 Status: Ordered omeprazole 20 mg oral delayed release tablet 1 tablet = 20 mg, By Mouth, Daily, # 30 tablet, 0 Refills, Maintenance, 10/25/20 12:17:00 EDT, CR Tablet, [facility]/pharmacy #[id number], Partial fill upon patient request if the prescription is for a schedule II opioid drug., 164.3, cm, 08/29/20 8:40:00 EST, Height Start Date: 10/25/20 Status: Ordered polyethylene glycol 3350 oral powder for reconstitution = 17 Gm, By Mouth, Daily, dissolve in water before taking. take one capful in water hourly until bowel movement. Then daily for maintenence as needed., # 527 Gm, 0 Refills, Acute 11/01/20 12:17:00 EDT, 10/25/20 12:17:00 EDT, REC Powder, [facility]/pharmacy #... Start Date: 10/25/20 Stop Date: 11/01/20 Status: Ordered Prolia 60 mg/mL subcutaneous solution See Instructions, 1 mL Subcutaneous Injection Every 6 months 3 days, # 1 each, 1 Refills, Maintenance, 06/27/20 9:26:00 EST, Solution, [place], [place] - [id number], Partial fill upon patient request, 164.3, cm, [...]
--- OUTSIDE RECORDS SUMMARY | 2024-04-01 01:23 | XMS_ITS | Continuity of Care Document ---
Author Organization [facility] Adult Address [address] [place] [address]- Care Team Providers Care Auto Body Painter Name Role Phone Ivanna Keller NP Primary Care Physician Encounter [facility] [place] Date(s): 08/12/20 - 09/11/20 [facility] Adult [address] [place] [address]- Allergies, Adverse Reactions, Alerts No Known Medication Allergies Medications amLODIPine 10 mg oral tablet 1 tablet = 10 mg, By Mouth, Daily, # 90 tablet, 1 Refills, Maintenance, 07/21/20 9:21:00 EST, Tablet, [place], [place] - [id number], Partial fill upon patient request if the [...] 1 Refills, Maintenance, 07/21/20 9:19:00 EST, Patch, [place], [place] - [id number], Partial fill upon patient request if the [...] 1 Refills, Maintenance, 06/27/20 9:26:00 EST, Solution, [facility] [place], [place] - [id number], Partial fill upon patient request, 164.3, cm, [...]
--- OUTSIDE RECORDS SUMMARY | 2024-04-01 01:23 | XMS_ITS | Continuity of Care Document ---
Author Organization [facility] Adult Address [address] [place] [address]- Care Team Providers Care Chemistry Professor Name Role Phone Ivanna Keller NP Primary Care Phys[id number] Date[facility] 08/[facility] - 09/02/20 [facility] [address] [place] [address]- Allergies, Adverse Reactions, Alerts No Known Medication Allergies Medications amLODIPine 10 mg oral tablet 1 tablet = 10 mg, By Mouth, Daily, # 90 tablet, 1 Refills, Maintenance, 07/21/20 9:21:00 EST, Tablet, [place], [place] - [id number], Partial fill upon patient request if the [...] 1 Refills, Maintenance, 07/21/20 9:19:00 EST, Patch, [place], [place] - [id number], Partial fill upon patient request if the [...] 1 Refills, Maintenance, 06/27/20 9:26:00 EST, Solution, [facility] [place], [place] - [id number], Partial fill upon patient request, 164.3, cm, [...]
--- OUTSIDE RECORDS SUMMARY | 2024-04-01 01:23 | XMS_ITS | Continuity of Care Document ---
Author Organization [facility] Address [address] [place] [address]- Care Team Providers Care Publicity Agent Name Role Phone Not on Staff, PCP Primary Care Physician Unavail able Encounter [facility] Date(s): 03/26/22 - 04/25/22 [facility] [address] [place] [id number] Allergies, Adverse Reactions, Alerts No Known Medication Allergies Medications Breo Ellipta 100 mcg-25 mcg/inh inhalation powder 1 puffs, Inhalation, Daily, # 60 Unknown, 8 Refills, [facility], [facility], INHALE 1 PUFF BY MOUTH INTO THE lungs DAILY, 170, cm, 07/20/21 8:17:00 EST, Height, 66, kg, 07/19/21 13:21:00 EST, Dry Weight Start Date: 09/20/21 Status: Ordered calcium-vitamin D 600 mg-400 intl units oral tablet 1 tablet, By Mouth, 2 times a day, # 60 tablet, 2 Refills, Maintenance, 04/15/22 14:16:00 EDT, [place], [place] - [id number], 30, 1 tablet By Mouth 2 times a day, 170, cm, 01/18/22 12:36:00 EDT, Height, 66, kg, 07/19/21 13:21:00 EST,... Start Date: 04/15/22 Status: Ordered cloNIDine 0.1 mg/24 hr transdermal film, extended release 1 patch, Topically, Daily, CHANGE DAILY ROTATE PLACEMENT, # 90 patch, 1 Refills, Maintenance, 01/17/21 9:19:00 EDT, Patch, [place], [place] - [id number], Partial fill upon patient request if the [...] 5 Refills, Maintenance, 01/22/21 14:24:00 EDT, ECCapsule, [facility] [id number], Partial fill upon patient request if the prescription is for a schedule II opioid drug., 164.3... Start Date: 01/22/21 Stop Date: 07/21/21 Status: Ordered famotidine 40 mg oral tablet 1 tablet = 40 mg, By Mouth, 2 times a day, # 60 tablet, 2 Refills, Maintenance, 01/03/21 15:00:00 EDT, Tablet, [facility]/pharmacy #[id number], Partial fill upon patient request if the prescription is for a schedule II opioid drug., 164.3, cm, 01/03/21 14:30:00 ED... Start Date: 01/03/21 Stop Date: 04/03/21 Status: Ordered ibuprofen 800 mg oral tablet 800 mg, 1, tablet, By Mouth, Daily, PRN, # 30 tablet, Refills 0, Tot. Refills 0, Maintenance, Pain , Moderate, 12/24/21 12:52:00 EDT, Route to Pharmacy Electronically, [facility] [id number], Partial fill upon patient request i... Start Date: 12/24/21 Status: Ordered lisinopril 40 mg oral tablet 1 tablet, By Mouth, Daily, # 90 tablet, 0 Refills, 04/15/22 14:16:00 EDT, [facility] [id number], 170, cm, 01/18/22 12:36:00 EDT, Height, 66, kg, 07/19/21 13:21:00 EST, Dry Weight Start Date: 04/15/22 Status: Ordered montelukast 10 mg oral tablet 1, tablet, By Mouth, Daily, # 90 tablet, Refills 1, Tot. Refills 1, 04/15/22 14:16:00 EDT, Route toPharmacy Electronically, [facility], [facility] [id number], 170, cm, 01/18/22 12:36:00EDT, Height, 66, kg, 07/19/21 13:21:00 EST, Dry Weight Start Date: 04/15/22 Status: Ordered omeprazole 40 mg oral enteric coated capsule 1 capsule = 40 mg, By Mouth, Daily, # 90 capsule, 2 Refills, Maintenance, 01/26/21 14:22:00 EDT, ECCapsule, [facility] [id number], Partial fill upon patient request if the prescription is for a schedule II opioid drug., 164.3... Start Date: 01/26/21 Status: Ordered omeprazole 40 mg oral enteric coated capsule 1 capsule = 40 mg, By Mouth, Daily, # 90 capsule, 3 Refills, Maintenance, 01/26/21 14:57:00 EDT, ECCapslia, [facility]/pharmacy #[id number], Partial fill upon patient request if the prescription is for a schedule II opioid drug., 164.3, cm, 01/06/21 13:12:00 EDT,... Start Date: 01/26/21 Status: Ordered propranolol 20 mg oral tablet 1, tablet, By Mouth, 3 times a day, # 90 tablet, Refills 8, Route to Pharmacy Electronically, [facility], 170, cm, 07/20/21 8:17:00 EST, Height, 66, kg, 07/19/21 13:21:00 EST, Dry Weight Start Date: 09/20/21 Status: Ordered spironolactone 25 mg oral tablet 1, tablet, By Mouth, Daily, # 90 tablet, Refills 0, Tot. Refills 0, 04/15/22 14:16:00 EDT, Route toPharmacy Electronically, [facility] [id number], 170, cm, 01/18/22 12:36:00EDT, Height, 66, kg, [...] for about 30-40. Now 3-4 day. Sex Care Team Personnel Name: Not on Staff, PCP
--- OUTSIDE RECORDS SUMMARY | 2024-04-01 01:23 | XMS_ITS | Continuity of Care Document ---
Author Organization [facility] Adult Address [address] [place] [address]- Care Team Providers Care Hogshead Mat Assembler Name Role Phone Ivanna Keller NP Primary Care Physician [phone] Encounter [facility] [place] Date(s): 03/13/22 - 04/12/22 [facility] Adult [address] [place] [address]- Allergies, Adverse Reactions, Alerts No Known Medication Allergies Medications Breo Ellipta 100 mcg-25 mcg/inh inhalation powder 1 puffs, Inhalation, Daily, # 60 Unknown, 8 Refills, [facility], 270, INHALE 1 PUFF BY MOUTH INTO THE lungs DAILY, 170, cm, 07/20/21 8:17:00 EST, Height, 66, kg, 07/19/21 13:21:00 EST, Dry Weight Start Date: 09/20/21 Status: Ordered calcium-vitamin D 600 mg-400 intl units oral tablet 1 tablet, By Mouth, 2 times a day, # 60 tablet, 11 Refills, Maintenance, 03/03/21 13:28:00 EDT, [facility], 30, TAKE ONE TABLET BY MOUTH two (2) times a day, 164.3, cm, 01/06/21 13:12:00 EDT, Height, 58.9, kg, 01/26/21 13:00:00 EDT, Dry Weight Start Date: 03/03/21 Status: Ordered cloNIDine 0.1 mg/24 hr transdermal film, extended release 1 patch, Topically, Daily, CHANGE DAILY ROTATE PLACEMENT, # 90 patch, 1 Refills, Maintenance, 01/17/21 9:19:00 EDT, Patch, [facility] [place], [place] - [id number], Partial fill upon patient request if the [...] 5 Refills, Maintenance, 01/22/21 14:24:00 EDT, ECCapsule, [place], [place] - [id number], Partial fill upon patient request if the prescription is for a schedule II opioid drug., 164.3... Start Date: 01/22/21 Stop Date: 07/21/21 Status: Ordered famotidine 40 mg oral tablet 1 tablet = 40 mg, By Mouth, 2 times a day, # 60 tablet, 2 Refills, Maintenance, 01/03/21 15:00:00 EDT, Tablet, [facility]/pharmacy #[id number], Partial fill upon patient request if the prescription is for a schedule II opioid drug., 164.3, cm, 01/03/21 14:30:00 ED... Start Date: 01/03/21 Stop Date: 04/03/21 Status: Ordered ibuprofen 800 mg oral tablet 800 mg, 1, tablet, By Mouth, Daily, PRN, # 30 tablet, Refills 0, Tot. Refills 0, Maintenance, Pain , Moderate, 12/24/21 12:52:00 EDT, Route to Pharmacy Electronically, [place], [place] - [id number], Partial fill upon patient request i... Start Date: 12/24/21 Status: Ordered lisinopril 40 mg oral tablet 1 tablet, By Mouth, Daily, # 90 tablet, 4 Refills, [facility], 164.3, cm, 03/08/21 12:48:00 EDT, Height, 58.9, kg, 01/26/21 13:00:00 EDT, Dry Weight Start Date: 03/28/21 Status: Ordered montelukast 10 mg oral tablet 1, tablet, By Mouth, Daily, # 90 tablet, Refills 1, Tot. Refills 1, 12/25/21 19:23:00 EDT, Route toPharmacy Electronically, [facility], [facility] [id number], 170, cm, 12/18/21 12:55:00EDT, Height, 66, kg, 07/19/21 13:21:00 EST, Dry Weight Start Date: 12/25/21 Status: Ordered omeprazole 40 mg oral enteric coated capsule 1 capsule = 40 mg, By Mouth, Daily, # 90 capsule, 2 Refills, Maintenance, 01/26/21 14:22:00 EDT, ECCapsule, [place], [place] - [id number], Partial fill upon patient request if the prescription is for a schedule II opioid drug., 164.3... Start Date: 01/26/21 Status: Ordered omeprazole 40 mg oral enteric coated capsule 1 capsule = 40 mg, By Mouth, Daily, # 90 capsule, 3 Refills, Maintenance, 01/26/21 14:57:00 EDT, ECCapsule, [facility]/pharmacy #[id number], Partial fill upon patient request if the prescription is for a schedule II opioid drug., 164.3, cm, 01/06/21 13:12:00 EDT,... Start Date: 01/26/21 Status: Ordered propranolol 20 mg oral tablet 1, tablet, By Mouth, 3 times a day, # 90 tablet, Refills 8, Route to Pharmacy Electronically, [facility], 170, cm, 07/20/21 8:17:00 EST, Height, 66, kg, 07/19/21 13:21:00 EST, Dry Weight Start Date: 09/20/21 Status: Ordered spironolactone 25 mg oral tablet 1, tablet, By Mouth, Daily, # 90 tablet, Refills 1, Tot. Refills 1, 12/25/21 19:23:00 EDT, Route toPharmacy Electronically, [facility] [id number], 170, cm, 12/18/21 12:55:00EDT, Height, 66, kg, [...] 3-4 day. Sex Care Team Personnel Name: Ivanna Keller NP Address: [address] [place] [id number]
--- OUTSIDE RECORDS SUMMARY | 2024-04-01 01:23 | XMS_ITS | Continuity of Care Document ---
Author Organization [facility] Address [address] [place] [id number]- Care Team Providers Care Professor Of Chemistry Name Role Phone Not on Staff, PCP Primary Care Physician Unavail able [place] [facility] [place] 12/02/23 - 01/01/24 [facility] [address] [address]- Attending Physician: Cydney Murry Admitting Physician: AdmtrCydney Referring Physician: Admtr, Ar8 Allergies, Adverse Reactions, Alerts No Known Medication Allergies Medications Breo Ellipta 100 mcg-25 mcg/inh inhalation powder 1 puffs, Inhalation, Daily, # 60 Unknown, 8 Refills, [facility], 270, INHALE 1 PUFF BY MOUTH INTO THE lungs DAILY, 170, cm, 07/20/21 8:17:00 EST, Height, 66, kg, 07/19/21 13:21:00 EST, Dry Weight Start Date: 09/20/21 Status: Ordered calcium-vitamin D 600 mg-400 intl units oral tablet 1 tablet, By Mouth, 2 times a day, # 60 tablet, 2 Refills, Maintenance, 04/15/22 14:16:00 EDT, [place], [place] - [id number], 30, 1 tablet By Mouth 2 times a day, 170, cm, 01/18/22 12:36:00 EDT, Height, 66, kg, 07/19/21 13:21:00 EST,... Start Date: 04/15/22 Status: Ordered cloNIDine 0.1 mg/24 hr transdermal film, extended release 1 patch, Topically, Daily, CHANGE DAILY ROTATE PLACEMENT, # 90 patch, 1 Refills, Maintenance, 01/17/21 9:19:00 EDT, Patch, [place], [place] - [id number], Partial fill upon patient request if the [...] 5 Refills, Maintenance, 01/22/21 14:24:00 EDT, ECCapsule, [place], [place] - [id number], Partial fill upon patient request if the prescription is for a schedule II opioid drug., 164.3... Start Date: 01/22/21 Stop Date: 07/21/21 Status: Ordered famotidine 40 mg oral tablet 1 tablet = 40 mg, By Mouth, 2 times a day, # 60 tablet, 2 Refills, Maintenance, 01/03/21 15:00:00 EDT, Tablet, [facility]/pharmacy #[id number], Partial fill upon patient request if the prescription is for a schedule II opioid drug., 164.3, cm, 01/03/21 14:30:00 ED... Start Date: 01/03/21 Stop Date: 04/03/21 Status: Ordered ibuprofen 800 mg oral tablet 800 mg, 1, tablet, By Mouth, Daily, PRN, # 30 tablet, Refills 0, Tot. Refills 0, Maintenance, Pain , Moderate, 12/24/21 12:52:00 EDT, Route to Pharmacy Electronically, [place], [place] - [id number], Partial fill upon patient request i... Start Date: 12/24/21 Status: Ordered levothyroxine 0.112 mg oral tablet 1 tablet = 112 mcg, By Mouth, Daily, # 30 tablet, 3 Refills, Maintenance, 12/11/23 12:48:00 EDT, Tablet, [place], [place] - [id number], Partial fill upon patient request if the prescription is for a schedule II opioid drug., 170, cm,... Start Date: 12/11/23 Status: Ordered lisinopril 40 mg oral tablet 1 tablet, By Mouth, Daily, # 90 tablet, 0 Refills, 04/15/22 14:16:00 EDT, [place], [place] - [id number], 170, cm, 01/18/22 12:36:00 EDT, Height, 66, kg, 07/19/21 13:21:00 EST, Dry Weight Start Date: 04/15/22 Status: Ordered montelukast 10 mg oral tablet 1, tablet, By Mouth, Daily, # 90 tablet, Refills 1, Tot. Refills 1, 04/15/22 14:16:00 EDT, Route toPharmacy Electronically, [facility], [facility] [id number], 170, cm, 01/18/22 12:36:00EDT, Height, 66, kg, 07/19/21 13:21:00 EST, Dry Weight Start Date: 04/15/22 Status: Ordered omeprazole 40 mg oral enteric coated capsule 1 capsule = 40 mg, By Mouth, Daily, # 90 capsule, 2 Refills, Maintenance, 01/26/21 14:22:00 EDT, Shalini, [place], [place] - [id number], Partial fill upon patient request if the prescription is for a schedule II opioid drug., 164.3... Start Date: 01/26/21 Status: Ordered omeprazole 40 mg oral enteric coated capsule 1 capsule = 40 mg, By Mouth, Daily, # 90 capsule, 3 Refills, Maintenance, 01/26/21 14:57:00 [facility], [id number], Partial fill upon patient request if the prescription is for a schedule II opioid drug., 164.3, cm, 01/06/21 13:12:00 EDT,... Start Date: 01/26/21 Status: Ordered propranolol 20 mg oral tablet 1, tablet, By Mouth, 3 times a day, # 90 tablet, Refills 8, Route to Pharmacy Electronically, [facility], 170, cm, 07/20/21 8:17:00 EST, Height, 66, kg, 07/19/21 13:21:00 EST, Dry Weight Start Date: 09/20/21 Status: Ordered spironolactone 25 mg oral tablet 1, tablet, By Mouth, Daily, # 90 tablet, Refills 0, Tot. Refills 0, 04/15/22 14:16:00 EDT, Route toPharmacy Electronically, [facility] [place], [place] - [id number], 170, cm, 01/18/22 12:36:00EDT, Height, 66, kg, [...] Team Personnel Name: Seun Christian RN Position: [facility] RN Member Role: Primary Care Nurse Name: Not on Staff, PCP Position: [facility] Physician (General Medicine) Member Role: PCP Care Team Related Persons Name: FLACO DALAL Address: [place] [address]
--- OUTSIDE RECORDS SUMMARY | 2024-04-01 01:23 | XMS_ITS | Continuity of Care Document ---
Author Organization [facility] Adult Address [address] [place] [address]- Care Team Providers Care Rubber Attacher Name Role Phone Ivanna Keller NP Primary Care Physician [phone] Encounter [facility] [place] Date(s): 03/22/21 - 04/21/21 [facility] Adult [address] [place] [address]- Allergies, Adverse Reactions, Alerts No Known Medication Allergies Medications amLODIPine 10 mg oral tablet 1 tablet, By Mouth, Daily, # 90 tablet, 1 Refills, Maintenance, 02/23/21 9:38:00 EDT, [facility], 164.3, cm, 01/06/21 13:12:00 EDT, Height, 58.9, kg, 01/26/21 13:00:00 EDT, Dry Weight Start Date: 02/23/21 Status: Ordered calcium-vitamin D 600 mg-400 intl units oral tablet 1 tablet, By Mouth, 2 times a day, # 60 tablet, 11 Refills, Maintenance, 03/03/21 13:28:00 EDT, [facility], 30, TAKE ONE TABLET BY MOUTH two (2) times a day, 164.3, cm, 01/06/21 13:12:00 EDT, Height, 58.9, kg, 01/26/21 13:00:00 EDT, Dry Weight Start Date: 03/03/21 Status: Ordered cholestyramine 4 g/5.5 g oral powder for reconstitution = 4 Gm, By Mouth, 2 times a day, # 60 each, 3 Refills, Maintenance, 03/08/21 13:22:00 EDT, REC Powder, [place], [place] - [id number], Partial fill upon patient request if the prescription is for a schedule II opioid drug., 164.3, cm,... Start Date: 03/08/21 Status: Ordered cloNIDine 0.1 mg/24 hr transdermal film, extended release 1 patch, Topically, Daily, CHANGE DAILY ROTATE PLACEMENT, # 90 patch, 1 Refills, Maintenance, 01/17/21 9:19:00 EDT, Patch, [place], [place] - [id number], Partial fill upon patient request if the prescription is for a schedule II opioi... Start Date: 01/17/21 Stop Date: 07/16/21 Status: Ordered duloxetine 60 mg oral enteric coated capsule 1 capsule = 60 mg, By Mouth, Daily, # 30 capsule, 5 Refills, Maintenance, 01/22/21 14:24:00 EDT, ECCapsule, [place], [place] - [id number], Partial fill upon patient request if the [...] Mouth, Daily, # 90 tablet, 4 Refills, [facility], 164.3, cm, 03/08/21 12:48:00 EDT, Height, 58.9, kg, 01/26/21 13:00:00 EDT, Dry Weight Start Date: 03/28/21 Status: Ordered montelukast 10 mg oral tablet 1, tablet, By Mouth, Daily, # 90 tablet, Refills 0, Route to Pharmacy Electronically, [facility], 164.3, cm, 03/08/21 12:48:00 EDT, Height, 58.9, kg, 01/26/21 13:00:00 EDT, Dry Weight Start Date: 03/28/21 Status: Ordered omeprazole 40 mg oral enteric coated capsule 1 capsule = 40 mg, By Mouth, Daily, # 90 capsule, 2 Refills, Maintenance, 01/26/21 14:22:00 EDT, ECCapsule, [place], [place] - [id number], Partial fill upon patient request if the prescription is for a schedule II opioid drug., 164.3... Start Date: 01/26/21 Status: Ordered omeprazole 40 mg oral enteric coated capsule 1 capsule = 40 mg, By Mouth, Daily, # 90 capsule, 3 Refills, Maintenance, 01/26/21 14:57:00 EDT, ECCapsule, [facility]/pharmacy #[id number], Partial fill upon patient [...] tablet, 0 Refills, Maintenance, 04/04/21 13:21:00 EDT, Tablet,[place], [place] - [id number], Par... Start Date: 04/04/21 Status: Ordered propranolol 20 mg oral tablet 1, tablet, By Mouth, 3 times a day, # 90 tablet, Refills 5, Tot. Refills 5, Maintenance, 03/15/21 10:28:00 EDT, Route to Pharmacy Electronically, [place], [place] - [id number], Please cancel rx done under Barbara Padilla [...]
--- OUTSIDE RECORDS SUMMARY | 2024-04-01 01:23 | XMS_ITS | Continuity of Care Document ---
Author Organization [facility] Adult Address [address] [place] [address]- Care Team Providers Care Body Shop Manager Name Role Phone Not on Staff, PCP Primary Care Physician Unavail able Encounter [facility] [place] Date(s): 12/12/22 - 01/11/23 [facility] [address] [place] [address]- Attending Physician: Cydney Murry Admitting Physician: Admtr, Ar8 Referring Physician: Admtr, Ar8 Allergies, Adverse Reactions, Alerts No Known Medication Allergies Medications Breo Ellipta 100 mcg-25 mcg/inh inhalation powder 1 puffs, Inhalation, Daily, # 60 Unknown, 8 Refills, [facility], [facility], INHALE 1 PUFF BY MOUTH INTO THE lungs DAILY, 170, cm, 07/20/21 8:17:00 EST, Height, 66, kg, 07/19/21 13:21:00 EST, Dry Weight Start Date: 09/20/21 Status: Ordered calcium-vitamin D 600 mg-400 intl units oral tablet 1 tablet, By Mouth, 2 times a day, # 60 tablet, 2 Refills, Maintenance, 04/15/22 14:16:00 EDT, [place], [place] - [id number], 30, 1 tablet By Mouth 2 times a day, 170, cm, 01/18/22 12:36:00 EDT, Height, 66, kg, 07/19/21 13:21:00 EST,... Start Date: 04/15/22 Status: Ordered cloNIDine 0.1 mg/24 hr transdermal film, extended release 1 patch, Topically, Daily, CHANGE DAILY ROTATE PLACEMENT, # 90 patch, 1 Refills, Maintenance, 01/17/21 9:19:00 EDT, Patch, [place], [place] - [id number], Partial fill upon patient request if the [...] 5 Refills, Maintenance, 01/22/21 14:24:00 EDT, ECCapsule, [facility] [place] [id number], Partial fill upon patient request if the prescription is for a schedule II opioid drug., 164.3... Start Date: 01/22/21 Stop Date: 07/21/21 Status: Ordered famotidine 40 mg oral tablet 1 tablet = 40 mg, By Mouth, 2 times a day, # 60 tablet, 2 Refills, Maintenance, 01/03/21 15:00:00 EDT, Tablet, [facility]/pharmacy #[id number], Partial fill upon patient request if the prescription is for a schedule II opioid drug., 164.3, cm, 01/03/21 14:30:00 ED... Start Date: 01/03/21 Stop Date: 04/03/21 Status: Ordered ibuprofen 800 mg oral tablet 800 mg, 1, tablet, By Mouth, Daily, PRN, # 30 tablet, Refills 0, Tot. Refills 0, Maintenance, Pain , Moderate, 12/24/21 12:52:00 EDT, Route to Pharmacy Electronically, [facility] [place] [id number], Partial fill upon patient request i... Start Date: 12/24/21 Status: Ordered levothyroxine 0.112 mg oral tablet 1 tablet = 112 mcg, By Mouth, Daily, # 30 tablet, 5 Refills, Maintenance, 10/05/22 12:13:00 EST, Tablet, [facility] [place] [id number], Partial fill upon patient request if the prescription is for a schedule II opioid drug., 170, cm,... Start Date: 10/05/22 Status: Ordered lisinopril 40 mg oral tablet 1 tablet, By Mouth, Daily, # 90 tablet, 0 Refills, 04/15/22 14:16:00 EDT, [facility] [id number], 170, cm, 01/18/22 12:36:00 EDT, Height, 66, kg, 07/19/21 13:21:00 EST, Dry Weight Start Date: 04/15/22 Status: Ordered montelukast 10 mg oral tablet 1, tablet, By Mouth, Daily, # 90 tablet, Refills 1, Tot. Refills 1, 04/15/22 14:16:00 EDT, Route toPharmacy Electronically, [place], [place] - [id number], 170, cm, 01/18/22 12:36:00EDT, Height, 66, kg, 07/19/21 13:21:00 EST, Dry Weight Start Date: 04/15/22 Status: Ordered omeprazole 40 mg oral enteric coated capsule 1 capsule = 40 mg, By Mouth, Daily, # 90 capsule, 2 Refills, Maintenance, 01/26/21 14:22:00 EDT, Shalini, [place], [place] - [id number], Partial fill upon patient request if the prescription is for a schedule II opioid drug., 164.3... Start Date: 01/26/21 Status: Ordered omeprazole 40 mg oral enteric coated capsule 1 capsule = 40 mg, By Mouth, Daily, # 90 capsule, 3 Refills, Maintenance, 01/26/21 14:57:00 EDT, [id number], Partial fill upon patient request if the prescription is for a schedule II opioid drug., 164.3, cm, 01/06/21 13:12:00 EDT,... Start Date: 01/26/21 Status: Ordered propranolol 20 mg oral tablet 1, tablet, By Mouth, 3 times a day, # 90 tablet, Refills 8, Route to Pharmacy Electronically, [facility], 170, cm, 07/20/21 8:17:00 EST, Height, 66, kg, 07/19/21 13:21:00 EST, Dry Weight Start Date: 09/20/21 Status: Ordered spironolactone 25 mg oral tablet 1, tablet, By Mouth, Daily, # 90 tablet, Refills 0, Tot. Refills 0, 04/15/22 14:16:00 EDT, Route toPharmacy Electronically, [facility] - [place], [place] - [id number], 170, cm, 01/18/22 12:36:00EDT, Height, 66, kg, [...] for about 30-40. Now 3-4 day. Sex Laboratory * Event Display: Non Lab Results Authored Date: * Event Display: Non Lab Results Authored Date: Patient Care team information Care Team Personnel Name: Seun Christian RN Position: [facility] RN Member Role: Primary Care Nurse Name: Not on Staff, PCP Position: [facility] Physician (General Medicine) Member Role: PCP Care Team Related Persons Name: FLACO DALAL Address: [place] [address]
--- OUTSIDE RECORDS SUMMARY | 2024-04-01 01:23 | XMS_ITS | Continuity of Care Document ---
Author Organization [facility] Address Unknown Care Team Providers Care Floor Renovator Name Role Phone Ivanna Keller NP Primary Care Physician En[place] [facility] [place](s): 01/18/22 - 02/17/22 [facility] Attending Physician: Cydney Murry Admitting Physician: AdmtrCydney Referring Physician: Admtr, Byron8 Allergies, Adverse Reactions, Alerts No Known Medication Allergies Medications Breo Ellipta 100 mcg-25 mcg/inh inhalation powder 1 puffs, Inhalation, Daily, # 60 Unknown, 8 Refills, [facility], 270, INHALE 1 PUFF BY MOUTH INTO THE lungs DAILY, 170, cm, 07/20/21 8:17:00 EST, Height, 66, kg, 07/19/21 13:21:00 EST, Dry Weight Start Date: 09/20/21 Status: Ordered calcium-vitamin D 600 mg-400 intl units oral tablet 1 tablet, By Mouth, 2 times a day, # 60 tablet, 11 Refills, Maintenance, 03/03/21 13:28:00 EDT, [facility], 30, TAKE ONE TABLET BY MOUTH two (2) times a day, 164.3, cm, 01/06/21 13:12:00 EDT, Height, 58.9, kg, 01/26/21 13:00:00 EDT, Dry Weight Start Date: 03/03/21 Status: Ordered cloNIDine 0.1 mg/24 hr transdermal film, extended release 1 patch, Topically, Daily, CHANGE DAILY ROTATE PLACEMENT, # 90 patch, 1 Refills, Maintenance, 01/17/21 9:19:00 EDT, Patch, [facility] - [place], [place] - [id number], Partial fill upon patient request if the [...] 5 Refills, Maintenance, 01/22/21 14:24:00 EDT, ECCapsule, [place], [place] - [id number], Partial fill upon patient request if the prescription is for a schedule II opioid drug., 164.3... Start Date: 01/22/21 Stop Date: 07/21/21 Status: Ordered famotidine 40 mg oral tablet 1 tablet = 40 mg, By Mouth, 2 times a day, # 60 tablet, 2 Refills, Maintenance, 01/03/21 15:00:00 EDT, Tablet, [facility]/pharmacy #[id number], Partial fill upon [...] 12/24/21 12:52:00 EDT, Route to Pharmacy Electronically, [place], [place] - [id number], Partial fill upon patient request i... Start Date: 12/24/21 Status: Ordered lisinopril 40 mg oral tablet 1 tablet, By Mouth, Daily, # 90 tablet, 4 Refills, [facility], 164.3, cm, 03/08/21 12:48:00 EDT, Height, 58.9, kg, 01/26/21 13:00:00 EDT, Dry Weight Start Date: 03/28/21 Status: Ordered montelukast 10 mg oral tablet 1, tablet, By Mouth, Daily, # 90 tablet, Refills 1, Tot. Refills 1, 12/25/21 19:23:00 EDT, Route toPharmacy Electronically, [facility] [id number], 170, cm, 12/18/21 12:55:00EDT, Height, 66, kg, 07/19/21 13:21:00 EST, Dry Weight Start Date: 12/25/21 Status: Ordered omeprazole 40 mg oral enteric coated capsule 1 capsule = 40 mg, By Mouth, Daily, # 90 capsule, 2 Refills, Maintenance, 01/26/21 14:22:00 EDT, ECCapsule, [facility] [id number], Partial fill upon patient request if the prescription is for a schedule II opioid drug., 164.3... Start Date: 01/26/21 Status: Ordered omeprazole 40 mg oral enteric coated capsule 1 capsule = 40 mg, By Mouth, Daily, # 90 capsule, 3 Refills, Maintenance, 01/26/21 14:57:00 EDT, [id number] Partial fill upon patient request if the prescription is for a schedule II opioid drug., 164.3, cm, 01/06/21 13:12:00 EDT,... Start Date: 01/26/21 Status: Ordered propranolol 20 mg oral tablet 1, tablet, By Mouth, 3 times a day, # 90 tablet, Refills 8, Route to Pharmacy Electronically, [facility], 170, cm, 07/20/21 8:17:00 EST, Height, 66, kg, 07/19/21 13:21:00 EST, Dry Weight Start Date: 09/20/21 Status: Ordered spironolactone 25 mg oral tablet 1, tablet, By Mouth, Daily, # 90 tablet, Refills 1, Tot. Refills 1, 12/25/21 19:23:00 EDT, Route toPharmacy Electronically, [facility] [id number], 170, cm, 12/18/21 12:55:00EDT, Height, 66, kg, [...]
--- OUTSIDE RECORDS SUMMARY | 2024-04-01 01:23 | XMS_ITS | Continuity of Care Document ---
Author Organization [facility] Adult Address [address] [place] [address]- Care Team Providers Care Sample Body Builder Name Role Phone Ivanna Keller NP Primary Care Physician [place] [facility] [place]): 01/26/21 - 02/25/21 [facility] [address] [place] [address]- Allergies, Adverse Reactions, Alerts No Known Medication Allergies Medications amLODIPine 10 mg oral tablet 1 tablet, By Mouth, Daily, # 90 tablet, 1 Refills, Maintenance, 02/23/21 9:38:00 EDT, [facility], 164.3, cm, 01/06/21 13:12:00 EDT, [...] 1 Refills, Maintenance, 01/17/21 9:19:00 EDT, Patch, [place], [place] - [id number], Partial fill upon patient request if the prescription is for a schedule II opioi... Start Date: 01/17/21 Stop Date: 07/16/21 Status: Ordered duloxetine 60 mg oral enteric coated capsule 1 capsule = 60 mg, By Mouth, Daily, # 30 capsule, 5 Refills, Maintenance, 01/22/21 14:24:00 EDT, ECCapsule, [place], [place] - [id number], Partial fill upon patient request if the prescription is for a schedule II opioid drug., 164.3... Start Date: 01/22/21 Stop Date: 07/21/21 Status: Ordered famotidine 40 mg oral tablet 1 tablet = 40 mg, By Mouth, 2 times a day, # 60 tablet, 2 Refills, Maintenance, 01/03/21 15:00:00 EDT, Tablet, [facility]/pharmacy #[id number], Partial fill upon patient request if the prescription is for a schedule II opioid drug., 164.3, cm, 01/03/21 14:30:00 ED... Start Date: 01/03/21 Stop Date: 04/03/21 Status: Ordered lisinopril 40 mg oral tablet 0 Refills, Maintenance, 06/15/20 15:28:00 EST Start Date: 06/15/20 Status: Ordered omeprazole 40 mg oral enteric coated capsule 1 capsule = 40 mg, By Mouth, Daily, # 90 capsule, 2 Refills, Maintenance, 01/26/21 14:22:00 EDT, ECCapsule, [place], [place] - [id number], Partial fill upon patient request if the prescription is for a schedule II opioid drug., 164.3... Start Date: 01/26/21 Status: Ordered omeprazole 40 mg oral enteric coated capsule 1 capsule = 40 mg, By Mouth, Daily, # 90 capsule, 3 Refills, Maintenance, 01/26/21 14:57:00 EDT, ECCapsule, [facility]/pharmacy #[id number], Partial fill upon patient request if the prescription is for a schedule II opioid drug., 164.3, cm, 01/06/21 13:12:00 EDT,... Start Date: 01/26/21 Status: Ordered propranolol 20 mg oral tablet 20 mg, 1, tablet, By Mouth, 3 times a day, # 90 tablet, Refills 0, Tot. Refills 0, Maintenance, 02/10/21 14:49:00 EDT, Route to Pharmacy Electronically, [facility] [id number], Partial fill upon patient request if the prescript... Start Date: 02/10/21 Stop Date: 03/12/21 Status: Ordered propylthiouracil 50 mg oral tablet 2 tablet = 100 mg, By Mouth, Every 8 hours, # 180 tablet, 6 Refills, Maintenance, 01/10/21 10:34:00EDT, Tablet, [facility]/pharmacy #[id number], Partial fill upon patient request if [...]
--- OUTSIDE RECORDS SUMMARY | 2024-04-01 01:23 | XMS_ITS | Continuity of Care Document ---
Author Organization [facility] Address [address] [place] [address]- Care Team Providers Care Blasting Gang Miner Name Role Phone Not on Staff, PCP Primary Care Physician Unavail able Encounter [facility] [place] Date(s): 05/16/22 - 06/15/22 [facility] [address] [place] [id number] Allergies, Adverse Reactions, Alerts No Known Medication Allergies Medications Breo Ellipta 100 mcg-25 mcg/inh inhalation powder 1 puffs, Inhalation, Daily, # 60 Unknown, 8 Refills, [facility], INHALE 1 PUFF BY MOUTH INTO THE lungs DAILY, 170, cm, 07/20/21 8:17:00 EST, Height, 66, kg, 07/19/21 13:21:00 EST, Dry Weight Start Date: 09/20/21 Status: Ordered calcium-vitamin D 600 mg-400 intl units oral tablet 1 tablet, By Mouth, 2 times a day, # 60 tablet, 2 Refills, Maintenance, 04/15/22 14:16:00 EDT, [place], [place] - [id number], 30, 1 tablet By Mouth 2 times a day, 170, cm, 01/18/22 12:36:00 EDT, Height, 66, kg, 07/19/21 13:21:00 EST,... Start Date: 04/15/22 Status: Ordered cloNIDine 0.1 mg/24 hr transdermal film, extended release 1 patch, Topically, Daily, CHANGE DAILY ROTATE PLACEMENT, # 90 patch, 1 Refills, Maintenance, 01/17/21 9:19:00 EDT, Patch, [place], [place] - [id number], Partial fill upon patient request if the [...] 5 Refills, Maintenance, 01/22/21 14:24:00 EDT, ECCapsule, [facility] [id number], Partial fill upon patient request if the prescription is for a schedule II opioid drug., 164.3... Start Date: 01/22/21 Stop Date: 07/21/21 Status: Ordered famotidine 40 mg oral tablet 1 tablet = 40 mg, By Mouth, 2 times a day, # 60 tablet, 2 Refills, Maintenance, 01/03/21 15:00:00 EDT, Tablet, [facility]/pharmacy #[id number], Partial fill upon patient request if the prescription is for a schedule II opioid drug., 164.3, cm, 01/03/21 14:30:00 ED... Start Date: 01/03/21 Stop Date: 04/03/21 Status: Ordered ibuprofen 800 mg oral tablet 800 mg, 1, tablet, By Mouth, Daily, PRN, # 30 tablet, Refills 0, Tot. Refills 0, Maintenance, Pain , Moderate, 12/24/21 12:52:00 EDT, Route to Pharmacy Electronically, [facility] [id number], Partial fill upon patient request i... Start Date: 12/24/21 Status: Ordered levothyroxine 0.088 mg oral tablet 1 tablet = 88 mcg, By Mouth, Daily, # 30 tablet, 6 Refills, Maintenance, 05/16/22 17:20:00 EDT, Tablet, [facility] [id number], Partial fill upon patient request if the prescription is for a schedule II opioid drug., 170, cm, 0... Start Date: 05/16/22 Status: Ordered lisinopril 40 mg oral tablet 1 tablet, By Mouth, Daily, # 90 tablet, 0 Refills, 04/15/22 14:16:00 EDT, [place], [place] - [id number], 170, cm, 01/18/22 12:36:00 EDT, Height, 66, kg, 07/19/21 13:21:00 EST, Dry Weight Start Date: 04/15/22 Status: Ordered montelukast 10 mg oral tablet 1, tablet, By Mouth, Daily, # 90 tablet, Refills 1, Tot. Refills 1, 04/15/22 14:16:00 EDT, Route toPharmacy Electronically, [place], [place] - [id number], 170, cm, 01/18/22 12:36:00EDT, Height, 66, kg, 07/19/21 13:21:00 EST, Dry Weight Start Date: 04/15/22 Status: Ordered omeprazole 40 mg oral enteric coated capsule 1 capsule = 40 mg, By Mouth, Daily, # 90 capsule, 2 Refills, Maintenance, 01/26/21 14:22:00 EDT, ECCapsule, [place], [place] - [id number], Partial fill upon patient request if the prescription is for a schedule II opioid drug., 164.3... Start Date: 01/26/21 Status: Ordered omeprazole 40 mg oral enteric coated capsule 1 capsule = 40 mg, By Mouth, Daily, # 90 capsule, 3 Refills, Maintenance, 01/26/21 14:57:00 EDT, ECCapslia, [facility]/pharmacy #[id number], Partial fill upon patient request if the prescription is for a schedule II opioid drug., 164.3, cm, 01/06/21 13:12:00 EDT,... Start Date: 01/26/21 Status: Ordered propranolol 20 mg oral tablet 1, tablet, By Mouth, 3 times a day, # 90 tablet, Refills 8, Route to Pharmacy Electronically, [facility], 170, cm, 07/20/21 8:17:00 EST, Height, 66, kg, 07/19/21 13:21:00 EST, Dry Weight Start Date: 09/20/21 Status: Ordered spironolactone 25 mg oral tablet 1, tablet, By Mouth, Daily, # 90 tablet, Refills 0, Tot. Refills 0, 04/15/22 14:16:00 EDT, Route toPharmacy Electronically, [facility] [place], [place] - [id number], 170, cm, 01/18/22 12:36:00EDT, Height, 66, kg, [...] Team Personnel Name: Seun Christian RN Position: [facility] RN Member Role: Primary Care Nurse Name: Not on Staff, PCP Position: [facility] Physician (General Medicine) Member Role: PCP Care Team Related Persons Name: FLACO DALAL Address: [place] [address]
--- OUTSIDE RECORDS SUMMARY | 2024-04-01 01:23 | XMS_ITS | Continuity of Care Document ---
Author Organization [facility] Adult Address [address] [place] [address]- Care Team Providers Care Layout Man Name Role Phone Ivanna Keller NP Primary Care Physician [place] [facility] [place] 12/18[place]21 - 12/25/21 [facility] [address] [place] [address]- Encounter Diagnosis HTN (hypertension)(Discharge Diagnosis) - 12/24/21 Blindness(Discharge Diagnosis) - 12/24/21 Attending Physician: Randy JIMENES, Barbara Allergies, Adverse Reactions, Alerts No Known Medication Allergies Medications Breo Ellipta 100 mcg-25 mcg/inh inhalation powder 1 puffs, Inhalation, Daily, # 60 Unknown, 8 Refills, [facility], 270, INHALE 1 PUFF BY MOUTH INTO THE lungs DAILY, 170, cm, 07/20/21 8:17:00 EST, Height, 66, kg, 07/19/21 13:21:00 EST, Dry Weight Start Date: 09/20/21 Status: Ordered calcium-vitamin D 600 mg-400 intl units oral tablet 1 tablet, By Mouth, 2 times a day, # 60 tablet, 11 Refills, Maintenance, 03/03/21 13:28:00 EDT, [facility], 30, TAKE ONE TABLET BY MOUTH two (2) times a day, 164.3, cm, 01/06/21 13:12:00 EDT, Height, 58.9, kg, 01/26/21 13:00:00 EDT, Dry Weight Start Date: 03/03/21 Status: Ordered cloNIDine 0.1 mg/24 hr transdermal film, extended release 1 patch, Topically, Daily, CHANGE DAILY ROTATE PLACEMENT, # 90 patch, 1 Refills, Maintenance, 01/17/21 9:19:00 EDT, Patch, [facility] [place] - [id number], Partial fill upon patient request if the [...] 5 Refills, Maintenance, 01/22/21 14:24:00 EDT, ECCapsule, [facility], [place] - [id number], Partial fill upon patient request if the prescription is for a schedule II opioid drug., 164.3... Start Date: 01/22/21 Stop Date: 07/21/21 Status: Ordered famotidine 40 mg oral tablet 1 tablet = 40 mg, By Mouth, 2 times a day, # 60 tablet, 2 Refills, Maintenance, 01/03/21 15:00:00 EDT, Tablet, [facility]/pharmacy #[id number], Partial fill upon patient request if the prescription is for a schedule II opioid drug., 164.3, cm, 01/03/21 14:30:00 ED... Start Date: 01/03/21 Stop Date: 04/03/21 Status: Ordered ibuprofen 800 mg oral tablet 800 mg, 1, tablet, By Mouth, Daily, PRN, # 30 tablet, Refills 0, Tot. Refills 0, Maintenance, Pain , Moderate, 12/24/21 12:52:00 EDT, Route to Pharmacy Electronically, [facility], [place] - [id number], Partial fill upon patient request i... Start Date: 12/24/21 Status: Ordered lisinopril 40 mg oral tablet 1 tablet, By Mouth, Daily, # 90 tablet, 4 Refills, [facility], 164.3, cm, 03/08/21 12:48:00 EDT, Height, 58.9, kg, 01/26/21 13:00:00 EDT, Dry Weight Start Date: 03/28/21 Status: Ordered montelukast 10 mg oral tablet 1, tablet, By Mouth, Daily, # 90 tablet, Refills 1, Tot. Refills 1, 12/25/21 19:23:00 EDT, Route toPharmacy Electronically, [facility], [facility] [id number], 170, cm, 12/18/21 12:55:00EDT, Height, 66, kg, 07/19/21 13:21:00 EST, Dry Weight Start Date: 12/25/21 Status: Ordered omeprazole 40 mg oral enteric coated capsule 1 capsule = 40 mg, By Mouth, Daily, # 90 capsule, 2 Refills, Maintenance, 01/26/21 14:22:00 EDT, ECCapsule, [facility] [id number], Partial fill upon patient request if the prescription is for a schedule II opioid drug., 164.3... Start Date: 01/26/21 Status: Ordered omeprazole 40 mg oral enteric coated capsule 1 capsule = 40 mg, By Mouth, Daily, # 90 capsule, 3 Refills, Maintenance, 01/26/21 14:57:00 [id number] Partial fill upon patient request if the prescription is for a schedule II opioid drug., 164.3, cm, 01/06/21 13:12:00 EDT,... Start Date: 01/26/21 Status: Ordered propranolol 20 mg oral tablet 1, tablet, By Mouth, 3 times a day, # 90 tablet, Refills 8, Route to Pharmacy Electronically, [facility], 170, cm, 07/20/21 8:17:00 EST, Height, 66, kg, 07/19/21 13:21:00 EST, Dry Weight Start Date: 09/20/21 Status: Ordered spironolactone 25 mg oral tablet 1, tablet, By Mouth, Daily, # 90 tablet, Refills 1, Tot. Refills 1, 12/25/21 19:23:00 EDT, Route toPharmacy Electronically, [facility] [id number], 170, cm, 12/18/21 12:55:00EDT, Height, 66, kg, [...] Active Prediabetes(Confirmed) Active Vitamin D deficiency(Confirmed) Active Diagnosis Diagnosis Type Effective Dates Health Status Cl inical Service Informant HTN (hypertension) Discharge Diagnosis 12/24/21 Blindness Discharge Diagnosis 12/24/21 Vital Signs Most recent to oldest [Reference Range]: 1 2 Height 170 cm (12/18/21 12:55 PM) 170 cm (12/18/21 12:46 PM) Weight 64.7 kg (12/18/21 12:46 PM) Oxygen Saturation [94-100 %] 98 % (12/18/21 12:46 PM) Pulse Rate [55-90 bpm] 69 bpm (12/18/21 12:46 PM) Body Mass Index [18.5-24.99] 22.39 (12/18/21 12:46 PM) Blood Pressure [90-138/55-84 mm Hg] 146/ 80mm Hg *H* (12/18/21 12:55 PM) 155/82mm Hg *H* (12/18/21 12:46 PM) Temperature [96.8-100.4 DegF] 97.4 DegF (12/18/21 12:46 PM) Mode of Delivery (Oxygen) Room air (12/18/21 12:46 PM) Blood pressure sites Arm, right (12/18/21 12:46 PM) Temperature Route Oral (12/18/21 12:46 PM) Weight Obtained Via Standing scale (12/18/21 12:46 PM) Social History Social History Type Response Tobacco Use: 4 or less cigar ettes(less than 1/4 pack)/day in last 30 days. Other: 3-3 packs a day for about 30-40. Now 3-4 day. Sex
--- OUTSIDE RECORDS SUMMARY | 2024-04-01 01:23 | XMS_ITS | Continuity of Care Document ---
Author Organization [facility] Address [address] [place] [address]- Care Team Providers Care Building Specialist Name Role Phone Ivanna Keller NP Primary Care Phys[id number] Date(s): 09/16/20 - 10/16/20 [facility] [address] [place] [address]- Allergies, Adverse Reactions, Alerts No Known Medication Allergies Medications amLODIPine 10 mg oral tablet 1 tablet = 10 mg, By Mouth, Daily, # 90 tablet, 1 Refills, Maintenance, 07/21/20 9:21:00 EST, Tablet, [place], [place] - [id number], Partial fill upon patient request if the [...] 1 Refills, Maintenance, 07/21/20 9:19:00 EST, Patch, [place], [place] - [id number], Partial fill upon patient request if the prescription is for a schedule II opioi... Start Date: 07/21/20 Stop Date: 01/17/21 Status: Ordered duloxetine 20 mg oral enteric coated capsule 1 capsule = 20 mg, By Mouth, Daily, # 90 capsule, 0 Refills, Maintenance, 09/30/20 11:20:00 EST, Capsule, [facility] [id number], Partial fill upon patient request if the [...] 1 Refills, Maintenance, 06/27/20 9:26:00 EST, Solution, [facility] [id number], Partial fill upon patient request, 164.3, cm, [...]
--- OUTSIDE RECORDS SUMMARY | 2024-04-01 01:23 | XMS_ITS | Continuity of Care Document ---
Author Organization [facility] Address [address] [place] [address]- Care Team Providers Care Editor Continuity And Script Name Role Phone Ivanna Keller NP Primary Care [id number] - 03/03/21 [facility] [address] [place] [address]- Allergies, Adverse Reactions, Alerts No Known Medication Allergies Medications amLODIPine 10 mg oral tablet 1 tablet, By Mouth, Daily, # 90 tablet, 1 Refills, Maintenance, 02/23/21 9:38:00 EDT, [facility], 164.3, cm, 01/06/21 13:12:00 EDT, Height, 58.9, kg, 01/26/21 13:00:00 EDT, Dry Weight Start Date: 02/23/21 Status: Ordered calcium-vitamin D 600 mg-400 intl units oral tablet 1 tablet, By Mouth, 2 times a day, # 60 tablet, 11 Refills, Maintenance, 03/03/21 13:28:00 EDT, [facility], 30, TAKE ONE TABLET BY MOUTH two (2) times a day, 164.3, cm, 01/06/21 13:12:00 EDT, Height, 58.9, kg, 01/26/21 13:00:00 EDT, Dry Weight Start Date: 03/03/21 Status: Ordered cloNIDine 0.1 mg/24 hr transdermal film, extended release 1 patch, Topically, Daily, CHANGE DAILY ROTATE PLACEMENT, # 90 patch, 1 Refills, Maintenance, 01/17/21 9:19:00 EDT, Patch, [facility] - [place], [place] - [id number], Partial fill upon patient request if the prescription is for a schedule II opioi... Start Date: 01/17/21 Stop Date: 07/16/21 Status: Ordered duloxetine 60 mg oral enteric coated capsule 1 capsule = 60 mg, By Mouth, Daily, # 30 capsule, 5 Refills, Maintenance, 01/22/21 14:24:00 EDT, [place] [id number], Partial fill upon patient request if the prescription is for a schedule II opioid drug., 164.3... Start Date: 01/22/21 Stop Date: 07/21/21 Status: Ordered famotidine 40 mg oral tablet 1 tablet = 40 mg, By Mouth, 2 times a day, # 60 tablet, 2 Refills, Maintenance, 01/03/21 15:00:00 EDT, Tablet, [facility]/pharmacy #[id number], Partial fill upon [...] capsule, 2 Refills, Maintenance, 01/26/21 14:22:00 ED[place], [place] [id number], Partial fill upon patient request if the prescription is for a schedule II opioid drug., 164.3... Start Date: 01/26/21 Status: Ordered omeprazole 40 mg oral enteric coated capsule 1 capsule = 40 mg, By Mouth, Daily, # 90 capsule, 3 Refills, Maintenance, 01/26/21 14:57:00 EDT, ECCapsule, [facility]/pharmacy #[id number], Partial fill upon patient request if the prescription is for a schedule II opioid drug., 164.3, cm, 01/06/21 13:12:00 EDT,... Start Date: 01/26/21 Status: Ordered predniSONE 20 mg oral tablet 2 tablet = 40 mg, By Mouth, Daily, for 14 days, # 28 tablet, 3 Refills, Acute 04/27/21 12:54:00 EDT, 03/02/21 12:54:00 EDT, Tablet, [place], [place] - [id number], Partial fill upon patient request if the prescription is for a schedule... Start Date: 03/02/21 Stop Date: 04/27/21 Status: Ordered propranolol 20 mg oral tablet 20 mg, 1, tablet, By Mouth, 3 times a day, # 90 tablet, Refills 0, Tot. Refills 0, Maintenance, 02/10/21 14:49:00 EDT, Route to Pharmacy Electronically, [place], [place] - [id number], Partial fill upon patient request if the prescript... Start Date: 02/10/21 Stop Date: 03/12/21 Status: Ordered propylthiouracil 50 mg oral tablet 2 tablet = 100 mg, By Mouth, Every 8 hours, # 180 tablet, 6 Refills, Maintenance, 01/10/21 10:34:00EDT, Tablet, [facility]/pharmacy #[id number], Partial fill upon patient request if the [...]
--- OUTSIDE RECORDS SUMMARY | 2024-04-01 01:23 | XMS_ITS | Continuity of Care Document ---
Author Organization [facility] Address [address] [place] [address]- Care Team Providers Care X Ray Technician Name Role Phone Ivanna Keller NP Primary Care Physician [place] [facility] [place] 02/02/21 [facility] [address] [place] [address]- Allergies, Adverse Reactions, Alerts No Known Medication Allergies Medications amLODIPine 10 mg oral tablet 1 tablet = 10 mg, By Mouth, Daily, # 90 tablet, 1 Refills, Maintenance, 07/21/20 9:21:00 EST, Tablet, [place], [place] - [id number], Partial fill upon patient request if the [...] 1 Refills, Maintenance, 01/17/21 9:19:00 EDT, Patch, [place], [place] - [id number], Partial fill upon patient request if the prescription is for a schedule II opioi... Start Date: 01/17/21 Stop Date: 07/16/21 Status: Ordered duloxetine 60 mg oral enteric coated capsule 1 capsule = 60 mg, By Mouth, Daily, # 30 capsule, 5 Refills, Maintenance, 01/22/21 14:24:00 [place], [place] [id number], Partial fill upon patient request if the prescription is for a schedule II opioid drug., 164.3... Start Date: 01/22/21 Stop Date: 07/21/21 Status: Ordered famotidine 40 mg oral tablet 1 tablet = 40 mg, By Mouth, 2 times a day, # 60 tablet, 2 Refills, Maintenance, 01/03/21 15:00:00 EDT, Tablet, [facility]/pharmacy #[id number], Partial fill upon [...] capsule, 2 Refills, Maintenance, 01/26/21 14:22:00 [place], [place] [id number], Partial fill upon patient request if the prescription is for a schedule II opioid drug., 164.3... Start Date: 01/26/21 Status: Ordered omeprazole 40 mg oral enteric coated capsule 1 capsule = 40 mg, By Mouth, Daily, # 90 capsule, 3 Refills, Maintenance, 01/26/21 14:57:00 EDT, ECCapsule, [facility]/pharmacy #[id number], Partial fill upon patient request if the prescription is for a schedule II opioid drug., 164.3, cm, 01/06/21 13:12:00 EDT,... Start Date: 01/26/21 Status: Ordered propranolol 20 mg oral tablet 20 mg, 1, tablet, By Mouth, 3 times a day, # 90 tablet, Refills 0, Tot. Refills 0, Maintenance, 12/07/20 13:13:00 EDT, Route to Pharmacy Electronically, [facility], Partial fill upon patient request if the prescription is for a schedule... Start Date: 12/07/20 Status: Ordered propylthiouracil 50 mg oral tablet 2 tablet = 100 mg, By Mouth, Every 8 hours, # 180 tablet, 6 Refills, Maintenance, 01/10/21 10:34:00EDT, Tablet, [facility]/pharmacy #[id number], Partial fill upon patient request if the [...]
--- OUTSIDE RECORDS SUMMARY | 2024-04-01 01:23 | XMS_ITS | Continuity of Care Document ---
Author Organization [facility] Address [address] [place] [id number]- Care Team Providers Care Demurrage Worker Name Role Phone Not on Staff, PCP Primary Care Physician Unavail able [place] [facility] [place]s): 11/26/22 - 12/26/22 [facility] [address] [place] [id number] Allergies, Adverse Reactions, Alerts No Known Medication Allergies Medications Breo Ellipta 100 mcg-25 mcg/inh inhalation powder 1 puffs, Inhalation, Daily, # 60 Unknown, 8 Refills, [facility], [facility], INHALE 1 PUFF BY MOUTH INTO THE lungs DAILY, 170, cm, 07/20/21 8:17:00 EST, Height, 66, kg, 07/19/21 13:21:00 EST, Dry Weight Start Date: 09/20/21 Status: Ordered calcium-vitamin D 600 mg-400 intl units oral tablet 1 tablet, By Mouth, 2 times a day, # 60 tablet, 2 Refills, Maintenance, 04/15/22 14:16:00 EDT, [place], [place] - [id number], 30, 1 tablet By Mouth 2 times a day, 170, cm, 01/18/22 12:36:00 EDT, Height, 66, kg, 07/19/21 13:21:00 EST,... Start Date: 04/15/22 Status: Ordered cloNIDine 0.1 mg/24 hr transdermal film, extended release 1 patch, Topically, Daily, CHANGE DAILY ROTATE PLACEMENT, # 90 patch, 1 Refills, Maintenance, 01/17/21 9:19:00 EDT, Patch, [place], [place] - [id number], Partial fill upon patient request if the [...] 5 Refills, Maintenance, 01/22/21 14:24:00 EDT, ECCapsule, [place], [place] - [id number], Partial fill upon patient request if the prescription is for a schedule II opioid drug., 164.3... Start Date: 01/22/21 Stop Date: 07/21/21 Status: Ordered famotidine 40 mg oral tablet 1 tablet = 40 mg, By Mouth, 2 times a day, # 60 tablet, 2 Refills, Maintenance, 01/03/21 15:00:00 EDT, Tablet, [facility]/pharmacy #[id number], Partial fill upon patient request if the prescription is for a schedule II opioid drug., 164.3, cm, 01/03/21 14:30:00 ED... Start Date: 01/03/21 Stop Date: 04/03/21 Status: Ordered ibuprofen 800 mg oral tablet 800 mg, 1, tablet, By Mouth, Daily, PRN, # 30 tablet, Refills 0, Tot. Refills 0, Maintenance, Pain , Moderate, 12/24/21 12:52:00 EDT, Route to Pharmacy Electronically, [facility] [id number], Partial fill upon patient request i... Start Date: 12/24/21 Status: Ordered levothyroxine 0.112 mg oral tablet 1 tablet = 112 mcg, By Mouth, Daily, # 30 tablet, 5 Refills, Maintenance, 10/05/22 12:13:00 EST, Tablet, [facility] [id number], Partial fill upon patient request if the prescription is for a schedule II opioid drug., 170, cm,... Start Date: 10/05/22 Status: Ordered lisinopril 40 mg oral tablet 1 tablet, By Mouth, Daily, # 90 tablet, 0 Refills, 04/15/22 14:16:00 EDT, [place], [place] - [id number], 170, cm, 01/18/22 12:36:00 EDT, Height, 66, kg, 07/19/21 13:21:00 EST, Dry Weight Start Date: 04/15/22 Status: Ordered montelukast 10 mg oral tablet 1, tablet, By Mouth, Daily, # 90 tablet, Refills 1, Tot. Refills 1, 04/15/22 14:16:00 EDT, Route toPharmacy Electronically, [place], [place] - [id number], 170, cm, 01/18/22 12:36:00EDT, Height, 66, kg, 07/19/21 13:21:00 EST, Dry Weight Start Date: 04/15/22 Status: Ordered omeprazole 40 mg oral enteric coated capsule 1 capsule = 40 mg, By Mouth, Daily, # 90 capsule, 2 Refills, Maintenance, 01/26/21 14:22:00 EDT, ECCapsule, [place], [place] - [id number], Partial fill upon patient request if the prescription is for a schedule II opioid drug., 164.3... Start Date: 01/26/21 Status: Ordered omeprazole 40 mg oral enteric coated capsule 1 capsule = 40 mg, By Mouth, Daily, # 90 capsule, 3 Refills, Maintenance, 01/26/21 14:57:00 EDT, ECCsophie, [facility]/pharmacy #[id number], Partial fill upon patient request if the prescription is for a schedule II opioid drug., 164.3, cm, 01/06/21 13:12:00 EDT,... Start Date: 01/26/21 Status: Ordered propranolol 20 mg oral tablet 1, tablet, By Mouth, 3 times a day, # 90 tablet, Refills 8, Route to Pharmacy Electronically, [facility], 170, cm, 07/20/21 8:17:00 EST, Height, 66, kg, 07/19/21 13:21:00 EST, Dry Weight Start Date: 09/20/21 Status: Ordered spironolactone 25 mg oral tablet 1, tablet, By Mouth, Daily, # 90 tablet, Refills 0, Tot. Refills 0, 04/15/22 14:16:00 EDT, Route toPharmacy Electronically, [facility] [place], [place] - [id number], 170, cm, 01/18/22 12:36:00EDT, Height, 66, kg, [...] Team Personnel Name: Seun Christian RN Position: [facility] RN Member Role: Primary Care Nurse Name: Not on Staff, PCP Position: [facility] Physician (General Medicine) Member Role: PCP Care Team Related Persons Name: FLACO DALAL Address: [place] [address]
--- OUTSIDE RECORDS SUMMARY | 2024-04-01 01:23 | XMS_ITS | Continuity of Care Document ---
Author Organization [facility] Adult Address [address] [place] [address]- Care Team Providers Care Globe Mounter Name Role Phone Ivanna Keller NP Primary Care Physician [phone] [place] [facility] [place] 08/17/21 [facility] Adult [address] [place] [address]- Allergies, Adverse Reactions, Alerts No Known Medication Allergies Medications Breo Ellipta 100 mcg-25 mcg/inh inhalation powder 1 puffs, Inhalation, Daily, # 30 each, 0 Refills, Maintenance, 04/25/21 11:35:00 EDT, Powder, Partial fill upon patient request if the prescription is for a schedule II opioid drug. Start Date: 04/25/21 Status: Ordered calcium-vitamin D 600 mg-400 intl [...] 01/17/21 9:19:00 EDT, Patch, [facility] - [place], [place] - [id number], Partial fill upon patient request if the [...] 5 Refills, Maintenance, 01/22/21 14:24:00 EDT, ECCapsule, [place], [place] - [id number], Partial fill upon patient request if the prescription is for a schedule II opioid drug., 164.3... Start Date: 01/22/21 Stop Date: 07/21/21 Status: Ordered famotidine 40 mg oral tablet 1 tablet = 40 mg, By Mouth, 2 times a day, # 60 tablet, 2 Refills, Maintenance, 01/03/21 15:00:00 EDT, Tablet, [facility]/pharmacy #[id number], Partial fill upon patient request if the prescription is for a schedule II opioid drug., 164.3, cm, 01/03/21 14:30:00 ED... Start Date: 01/03/21 Stop Date: 04/03/21 Status: Ordered lisinopril 40 mg oral tablet 1 tablet, By Mouth, Daily, # 90 tablet, 4 Refills, [facility], 164.3, cm, 03/08/21 12:48:00 EDT, Height, 58.9, kg, 01/26/21 13:00:00 EDT, Dry Weight Start Date: 03/28/21 Status: Ordered montelukast 10 mg oral tablet 1, tablet, By Mouth, Daily, # 90 tablet, Refills 1, Route to Pharmacy Electronically, [facility], 168, cm, 05/31/21 13:35:00 EDT, Height, 58.9, kg, 01/26/21 13:00:00 EDT, Dry Weight Start Date: 06/16/21 Status: Ordered omeprazole 40 mg oral enteric coated capsule 1 capsule = 40 mg, By Mouth, Daily, # 90 capsule, 2 Refills, Maintenance, 01/26/21 14:22:00 EDT, ECCapsule, [place], [place] - [id number], Partial fill upon patient request if the prescription is for a schedule II opioid drug., 164.3... Start Date: 01/26/21 Status: Ordered omeprazole 40 mg oral enteric coated capsule 1 capsule = 40 mg, By Mouth, Daily, # 90 capsule, 3 Refills, Maintenance, 01/26/21 14:57:00 EDT, ECCapsule, [facility]/pharmacy #[id number], Partial fill upon patient request if the prescription is for a schedule II opioid drug., 164.3, cm, 01/06/21 13:12:00 EDT,... Start Date: 01/26/21 Status: Ordered propranolol 20 mg oral tablet 1, tablet, By Mouth, 3 times a day, # 90 tablet, Refills 5, Tot. Refills 5, Maintenance, 03/15/21 10:28:00 EDT, Route to Pharmacy Electronically, [facility] [id number], Please cancel rx done under Barbara Padilla MD., 164.3... Start Date: 03/15/21 Status: Ordered spironolactone 25 mg oral tablet 25 mg, 1, tablet, By Mouth, Daily, # 90 tablet, Refills 0, Tot. Refills 0, Maintenance, 06/21/21 10:23:00 EST, Route to Pharmacy Electronically, [facility] [id number], Partial fill upon patient request if the prescription is f... Start Date: 06/21/21 Stop Date: 07/21/21 Status: Ordered traMADol 50 mg oral tablet [...]
--- OUTSIDE RECORDS SUMMARY | 2024-04-01 01:23 | XMS_ITS | Continuity of Care Document ---
Author Organization [facility] Address [address] [place] [address]- Care Team Providers Care Hospice Music Therapist Name Role Phone Ivanna Keller NP Primary Care Physician [phone] [place] [facility] [place]21 [facility] [address] [place] [address]- Allergies, Adverse Reactions, Alerts No Known Medication [...] 01/17/21 9:19:00 EDT, Patch, [facility] - [place], [place] - [id number], Partial fill upon patient request if the [...] 5 Refills, Maintenance, 01/22/21 14:24:00 EDT, ECCapsule, [place], [place] - [id number], Partial fill upon patient request if the prescription is for a schedule II opioid drug., 164.3... Start Date: 01/22/21 Stop Date: 07/21/21 Status: Ordered famotidine 40 mg oral tablet 1 tablet = 40 mg, By Mouth, 2 times a day, # 60 tablet, 2 Refills, Maintenance, 01/03/21 15:00:00 EDT, Tablet, [facility]/pharmacy #[id number], Partial fill upon patient request if the prescription is for a schedule II opioid drug., 164.3, cm, 01/03/21 14:30:00 ED... Start Date: 01/03/21 Stop Date: 04/03/21 Status: Ordered lisinopril 40 mg oral tablet 1 tablet, By Mouth, Daily, # 90 tablet, 4 Refills, [facility], 164.3, cm, 03/08/21 12:48:00 EDT, Height, 58.9, kg, 01/26/21 13:00:00 EDT, Dry Weight Start Date: 03/28/21 Status: Ordered montelukast 10 mg oral tablet 1, tablet, By Mouth, Daily, # 90 tablet, Refills 1, Route to Pharmacy Electronically, [facility], 168, cm, 05/31/21 13:35:00 EDT, Height, 58.9, kg, 01/26/21 13:00:00 EDT, Dry Weight Start Date: 06/16/21 Status: Ordered omeprazole 40 mg oral enteric coated capsule 1 capsule = 40 mg, By Mouth, Daily, # 90 capsule, 2 Refills, Maintenance, 01/26/21 14:22:00 EDT, ECCapsule, [place], [place] - [id number], Partial fill upon patient request if the prescription is for a schedule II opioid drug., 164.3... Start Date: 01/26/21 Status: Ordered omeprazole 40 mg oral enteric coated capsule 1 capsule = 40 mg, By Mouth, Daily, # 90 capsule, 3 Refills, Maintenance, 01/26/21 14:57:00 EDT, ECCapsule, [facility]/pharmacy #[id number], Partial fill upon patient request if the prescription is for a schedule II opioid drug., 164.3, cm, 01/06/21 13:12:00 EDT,... Start Date: 01/26/21 Status: Ordered propranolol 20 mg oral tablet 1, tablet, By Mouth, 3 times a day, # 90 tablet, Refills 5, Tot. Refills 5, Maintenance, 03/15/21 10:28:00 EDT, Route to Pharmacy Electronically, [facility] [id number], Please cancel rx done under Barbara Padilla MD., 164.3... Start Date: 03/15/21 Status: Ordered spironolactone 25 mg oral tablet 25 mg, 1, tablet, By Mouth, Daily, # 90 tablet, Refills 0, Tot. Refills 0, Maintenance, 06/21/21 10:23:00 EST, Route to Pharmacy Electronically, [facility] [id number], Partial fill upon patient request if the [...]
--- OUTSIDE RECORDS SUMMARY | 2024-04-01 01:23 | XMS_ITS | Continuity of Care Document ---
Author Organization [facility] Adult Address [address] [place] [address]- Care Team Providers Care Ultrasonic Cleaner Name Role Phone Ivanna Keller NP Primary Care Physician [phone] Encounter [facility] Date(s): 05/11/20 - 06/10/20 [facility] Adult [address] [place] [address]-
--- OUTSIDE RECORDS SUMMARY | 2024-04-01 01:23 | XMS_ITS | Continuity of Care Document ---
Author Organization [facility] Address [address] [place] [address]- Care Team Providers Care Skoog Patching Machine Operator Name Role Phone Ivanna Keller NP Primary Care Physician [phone] Encounter [facility] [place] Date(s): 03/27/21 - 04/26/21 [facility] [address] [place], [place] [address] Allergies, Adverse Reactions, Alerts No Known Medication Allergies Medications amLODIPine 10 mg oral tablet 1 tablet, By Mouth, Daily, # 90 tablet, 1 Refills, Maintenance, 02/23/21 9:38:00 EDT, [facility], 164.3, cm, 01/06/21 13:12:00 EDT, Height, 58.9, kg, 01/26/21 13:00:00 EDT, Dry Weight Start Date: 02/23/21 Status: Ordered Breo Ellipta 100 mcg-25 mcg/inh [...] Refills, Maintenance, 03/08/21 13:22:00 EDT, REC Powder, [place], [place] - [id number], Partial fill upon patient request if the prescription is for a schedule II opioid drug., 164.3, cm,... Start Date: 03/08/21 Status: Ordered cloNIDine 0.1 mg/24 hr transdermal film, extended release 1 patch, Topically, Daily, CHANGE DAILY ROTATE PLACEMENT, # 90 patch, 1 Refills, Maintenance, 01/17/21 9:19:00 EDT, Patch, [place], [place] - [id number], Partial fill upon patient request if the prescription is for a schedule II opioi... Start Date: 01/17/21 Stop Date: 07/16/21 Status: Ordered duloxetine 60 mg oral enteric coated capsule 1 capsule = 60 mg, By Mouth, Daily, # 30 capsule, 5 Refills, Maintenance, 01/22/21 14:24:00 EDT, ECCapsule, [facility] [id number], Partial fill upon patient request if the prescription is for a schedule II opioid drug., 164.3... Start Date: 01/22/21 Stop Date: 07/21/21 Status: Ordered famotidine 40 mg oral tablet 1 tablet = 40 mg, By Mouth, 2 times a day, # 60 tablet, 2 Refills, Maintenance, 01/03/21 15:00:00 EDT, Tablet, [facility]/pharmacy #[id number], Partial fill [...] tablet, Refills 0, Route to Pharmacy Electronically, [facility], 164.3, cm, 03/08/21 12:48:00 EDT, Height, 58.9, kg, 01/26/21 13:00:00 EDT, Dry Weight Start Date: 03/28/21 Status: Ordered omeprazole 40 mg oral enteric coated capsule 1 capsule = 40 mg, By Mouth, Daily, # 90 capsule, 2 Refills, Maintenance, 01/26/21 14:22:00 EDT, ECCapsule, [place], [place] - [id number], Partial fill upon patient request if the prescription is for a schedule II opioid drug., 164.3... Start Date: 01/26/21 Status: Ordered omeprazole 40 mg oral enteric coated capsule 1 capsule = 40 mg, By Mouth, Daily, # 90 capsule, 3 Refills, Maintenance, 01/26/21 14:57:00 EDT, ECCapsule, [facility]/pharmacy #[id number], Partial fill [...] tablet, 0 Refills, Maintenance, 04/04/21 13:21:00 EDT, Tablet,[place], [place] - [id number], Par... Start Date: 04/04/21 Status: Ordered propranolol 20 mg oral tablet 1, tablet, By Mouth, 3 times a day, # 90 tablet, Refills 5, Tot. Refills 5, Maintenance, 03/15/21 10:28:00 EDT, Route to Pharmacy Electronically, [facility] [id number], Please cancel rx done under Barbara Padilla MD., 164.3... Start Date: 03/15/21 Status: Ordered propylthiouracil 50 mg oral tablet 2 tablet = 100 mg, By Mouth, Every 8 hours, # 180 tablet, 6 Refills, Maintenance, 01/10/21 10:34:00EDT, Tablet, [facility]/pharmacy #[id number], Partial fill upon patient request if the [...]
--- OUTSIDE RECORDS SUMMARY | 2024-04-01 01:23 | XMS_ITS | Continuity of Care Document ---
Author Organization [facility] Adult Address [address] [place] [address]- Care Team Providers Care Clay [place] Cutting Machine Operator Name Role Phone Ivanna Keller NP Primary Care Physician Encounter [facility] [place] Date(s): 11/09/21 - 12/09/21 [facility] Adult [address] [place] [address]- Allergies, Adverse Reactions, Alerts No Known Medication Allergies Medications Breo Ellipta 100 mcg-25 mcg/inh inhalation powder 1 puffs, Inhalation, Daily, # 60 Unknown, 8 Refills, [facility], 270, INHALE 1 PUFF BY MOUTH INTO THE lungs DAILY, 170, cm, 07/20/21 8:17:00 EST, Height, 66, kg, 07/19/21 13:21:00 EST, Dry Weight Start Date: 09/20/21 Status: Ordered calcium-vitamin D 600 mg-400 intl units oral tablet 1 tablet, By Mouth, 2 times a day, # 60 tablet, 11 Refills, Maintenance, 03/03/21 13:28:00 EDT, [facility], 30, TAKE ONE TABLET BY MOUTH two (2) times a day, 164.3, cm, 01/06/21 13:12:00 EDT, Height, 58.9, kg, 01/26/21 13:00:00 EDT, Dry Weight Start Date: 03/03/21 Status: Ordered cloNIDine 0.1 mg/24 hr transdermal film, extended release 1 patch, Topically, Daily, CHANGE DAILY ROTATE PLACEMENT, # 90 patch, 1 Refills, Maintenance, 01/17/21 9:19:00 EDT, Patch, [facility] [place], [place] - [id number], Partial fill upon patient request if the [...] 5 Refills, Maintenance, 01/22/21 14:24:00 EDT, ECCapsule, [place], [place] - [id number], Partial fill upon patient request if the prescription is for a schedule II opioid drug., 164.3... Start Date: 01/22/21 Stop Date: 07/21/21 Status: Ordered famotidine 40 mg oral tablet 1 tablet = 40 mg, By Mouth, 2 times a day, # 60 tablet, 2 Refills, Maintenance, 01/03/21 15:00:00 EDT, Tablet, [facility]/pharmacy #[id number], Partial fill upon patient request if the prescription is for a schedule II opioid drug., 164.3, cm, 01/03/21 14:30:00 ED... Start Date: 01/03/21 Stop Date: 04/03/21 Status: Ordered lisinopril 40 mg oral tablet 1 tablet, By Mouth, Daily, # 90 tablet, 4 Refills, [facility], 164.3, cm, 03/08/21 12:48:00 EDT, Height, 58.9, kg, 01/26/21 13:00:00 EDT, Dry Weight Start Date: 03/28/21 Status: Ordered montelukast 10 mg oral tablet 1, tablet, By Mouth, Daily, # 90 tablet, Refills 1, Route to Pharmacy Electronically, [facility], 168, cm, 05/31/21 13:35:00 EDT, Height, 58.9, kg, 01/26/21 13:00:00 EDT, Dry Weight Start Date: 06/16/21 Status: Ordered omeprazole 40 mg oral enteric coated capsule 1 capsule = 40 mg, By Mouth, Daily, # 90 capsule, 2 Refills, Maintenance, 01/26/21 14:22:00 EDT, Shalini, [facility] - [place], [place] - [id number], Partial fill upon patient request if the prescription is for a schedule II opioid drug., 164.3... Start Date: 01/26/21 Status: Ordered omeprazole 40 mg oral enteric coated capsule 1 capsule = 40 mg, By Mouth, Daily, # 90 capsule, 3 Refills, Maintenance, 01/26/21 14:57:00 EDT, [id number], Partial fill upon patient request if the prescription is for a schedule II opioid drug., 164.3, cm, 01/06/21 13:12:00 EDT,... Start Date: 01/26/21 Status: Ordered propranolol 20 mg oral tablet 1, tablet, By Mouth, 3 times a day, # 90 tablet, Refills 8, Route to Pharmacy Electronically, [facility], 170, cm, 07/20/21 8:17:00 EST, Height, 66, kg, 07/19/21 13:21:00 EST, Dry Weight Start Date: 09/20/21 Status: Ordered spironolactone 25 mg oral tablet 1, tablet, By Mouth, Daily, # 90 tablet, Refills 0, Route to Pharmacy Electronically, [facility], 170, cm, 07/20/21 8:17:00 EST, Height, 66, kg, 07/19/21 13:21:00 EST, Dry Weight Start Date: 09/20/21 Status: Ordered traMADol 50 mg oral tablet [...]
--- OUTSIDE RECORDS SUMMARY | 2024-04-01 01:23 | XMS_ITS | Continuity of Care Document ---
Author Organization [facility] Address [address] [place] [address]- Care Team Providers Care Typesetting Machine Tender Name Role Phone Not on Staff, PCP Primary Care Physician Unavail able [place] [facility] [place] 08/08/22 - 09/07/22 [facility] [address] [place] [address] Allergies, Adverse Reactions, Alerts No Known Medication Allergies Medications Breo Ellipta 100 mcg-25 mcg/inh inhalation powder 1 puffs, Inhalation, Daily, # 60 Unknown, 8 Refills, [facility], [facility], INHALE 1 PUFF BY MOUTH INTO THE lungs DAILY, 170, cm, 07/20/21 8:17:00 EST, Height, 66, kg, 07/19/21 13:21:00 EST, Dry Weight Start Date: 09/20/21 Status: Ordered calcium-vitamin D 600 mg-400 intl units oral tablet 1 tablet, By Mouth, 2 times a day, # 60 tablet, 2 Refills, Maintenance, 04/15/22 14:16:00 EDT, [place], [place] - [id number], 30, 1 tablet By Mouth 2 times a day, 170, cm, 01/18/22 12:36:00 EDT, Height, 66, kg, 07/19/21 13:21:00 EST,... Start Date: 04/15/22 Status: Ordered cloNIDine 0.1 mg/24 hr transdermal film, extended release 1 patch, Topically, Daily, CHANGE DAILY ROTATE PLACEMENT, # 90 patch, 1 Refills, Maintenance, 01/17/21 9:19:00 EDT, Patch, [place], [place] - [id number], Partial fill upon patient request if the [...] 5 Refills, Maintenance, 01/22/21 14:24:00 EDT, ECCapsule, [facility] [id number], Partial fill upon patient request if the prescription is for a schedule II opioid drug., 164.3... Start Date: 01/22/21 Stop Date: 07/21/21 Status: Ordered famotidine 40 mg oral tablet 1 tablet = 40 mg, By Mouth, 2 times a day, # 60 tablet, 2 Refills, Maintenance, 01/03/21 15:00:00 EDT, Tablet, [facility]/pharmacy #[id number], Partial fill upon patient request if the prescription is for a schedule II opioid drug., 164.3, cm, 01/03/21 14:30:00 ED... Start Date: 01/03/21 Stop Date: 04/03/21 Status: Ordered ibuprofen 800 mg oral tablet 800 mg, 1, tablet, By Mouth, Daily, PRN, # 30 tablet, Refills 0, Tot. Refills 0, Maintenance, Pain , Moderate, 12/24/21 12:52:00 EDT, Route to Pharmacy Electronically, [facility] [id number], Partial fill upon patient request i... Start Date: 12/24/21 Status: Ordered levothyroxine 0.1 mg oral tablet 1 tablet = 100 mcg, By Mouth, Daily, # 30 tablet, 11 Refills, Maintenance, 08/08/22 12:05:00 EST, [facility] [id number], Partial fill upon patient request if the prescriptionis for a schedule II opioid drug., 170, cm, ... Start Date: 08/08/22 Status: Ordered lisinopril 40 mg oral tablet 1 tablet, By Mouth, Daily, # 90 tablet, 0 Refills, 04/15/22 14:16:00 EDT, [place], [place] - [id number], 170, cm, 01/18/22 12:36:00 EDT, Height, 66, kg, 07/19/21 13:21:00 EST, Dry Weight Start Date: 04/15/22 Status: Ordered montelukast 10 mg oral tablet 1, tablet, By Mouth, Daily, # 90 tablet, Refills 1, Tot. Refills 1, 04/15/22 14:16:00 EDT, Route toPharmacy Electronically, [place], [place] - [id number], 170, cm, 01/18/22 12:36:00EDT, Height, 66, kg, 07/19/21 13:21:00 EST, Dry Weight Start Date: 04/15/22 Status: Ordered omeprazole 40 mg oral enteric coated capsule 1 capsule = 40 mg, By Mouth, Daily, # 90 capsule, 2 Refills, Maintenance, 01/26/21 14:22:00 EDT, ECCapsule, [place], [place] - [id number], Partial fill upon patient request if the prescription is for a schedule II opioid drug., 164.3... Start Date: 01/26/21 Status: Ordered omeprazole 40 mg oral enteric coated capsule 1 capsule = 40 mg, By Mouth, Daily, # 90 capsule, 3 Refills, Maintenance, 01/26/21 14:57:00 EDT, ECCsophie, [facility]/pharmacy #[id number], Partial fill upon patient request if the prescription is for a schedule II opioid drug., 164.3, cm, 01/06/21 13:12:00 EDT,... Start Date: 01/26/21 Status: Ordered propranolol 20 mg oral tablet 1, tablet, By Mouth, 3 times a day, # 90 tablet, Refills 8, Route to Pharmacy Electronically, [facility], 170, cm, 07/20/21 8:17:00 EST, Height, 66, kg, 07/19/21 13:21:00 EST, Dry Weight Start Date: 09/20/21 Status: Ordered spironolactone 25 mg oral tablet 1, tablet, By Mouth, Daily, # 90 tablet, Refills 0, Tot. Refills 0, 04/15/22 14:16:00 EDT, Route toPharmacy Electronically, [facility] - [place], [place] - [id number], 170, cm, 01/18/22 12:36:00EDT, Height, 66, kg, [...] Team Personnel Name: Seun Christian RN Position: [facility] RN Member Role: Primary Care Nurse Name: Not on Staff, PCP Position: [facility] Physician (General Medicine) Member Role: PCP Care Team Related Persons Name: FLACO DALAL Address: [place] [address]
--- OUTSIDE RECORDS SUMMARY | 2024-04-01 01:23 | XMS_ITS | Continuity of Care Document ---
Author Organization [facility] Address [address] [place] [address]- Care Team Providers Care Adjustment Clerk Name Role Phone Ivanna Keller NP Primary Care Physician Encounter [facility] Date(s): 05/31/21 - 06/07/21 [facility] [address] [place] [address]- Encounter Diagnosis HTN (hypertension)(Discharge Diagnosis) - 05/31/21 Leg swelling(Discharge Diagnosis) - 05/31/21 Prediabetes(Discharge Diagnosis) - 05/31/21 Attending Physician: Bhavin Mo MD Allergies, Adverse Reactions, Alerts No Known Medication [...] Refills, Maintenance, 03/08/21 13:22:00 EDT, REC Powder, [facility] - [place], [place] - [phone], Partial fill upon patient request if the prescription is for a schedule II opioid drug., 164.3, cm,... Start Date: 03/08/21 Status: Ordered cloNIDine 0.1 mg/24 hr transdermal film, extended release 1 patch, Topically, Daily, CHANGE DAILY ROTATE PLACEMENT, # 90 patch, 1 Refills, Maintenance, 01/17/21 9:19:00 EDT, Patch, [place], [place] - [phone], Partial fill upon patient request if the [...] 5 Refills, Maintenance, 01/22/21 14:24:00 EDT, ECCapsule, [place], [place] - [phone], Partial fill upon patient request if the prescription is for a schedule II opioid drug., 164.3... Start Date: 01/22/21 Stop Date: 07/21/21 Status: Ordered famotidine 40 mg oral tablet 1 tablet = 40 mg, By Mouth, 2 times a day, # 60 tablet, 2 Refills, Maintenance, 01/03/21 15:00:00 EDT, Tablet, [facility]/pharmacy #[id number], Partial fill upon patient request if the prescription is for a schedule II opioid drug., 164.3, cm, 01/03/21 14:30:00 ED... Start Date: 01/03/21 Stop Date: 04/03/21 Status: Ordered lisinopril 40 mg oral tablet 1 tablet, By Mouth, Daily, # 90 tablet, 4 Refills, [facility], 164.3, cm, 03/08/21 12:48:00 EDT, Height, 58.9, kg, 01/26/21 13:00:00 EDT, Dry Weight Start Date: 03/28/21 Status: Ordered montelukast 10 mg oral tablet 1, tablet, By Mouth, Daily, # 90 tablet, Refills 0, Route to Pharmacy Electronically, [facility], 164.3, cm, 03/08/21 12:48:00 EDT, Height, 58.9, kg, 01/26/21 13:00:00 EDT, Dry Weight Start Date: 03/28/21 Status: Ordered omeprazole 40 mg oral enteric coated capsule 1 capsule = 40 mg, By Mouth, Daily, # 90 capsule, 2 Refills, Maintenance, 01/26/21 14:22:00 EDT, ECCapsule, [place], [place] - [phone], Partial fill upon patient request if the prescription is for a schedule II opioid drug., 164.3... Start Date: 01/26/21 Status: Ordered omeprazole 40 mg oral enteric coated capsule 1 capsule = 40 mg, By Mouth, Daily, # 90 capsule, 3 Refills, Maintenance, 01/26/21 14:57:00 EDT, ECCsophie, [facility]/pharmacy #[id number], Partial fill upon patient request if the prescription is for a schedule II opioid drug., 164.3, cm, 01/06/21 13:12:00 EDT,... Start Date: 01/26/21 Status: Ordered predniSONE 10 mg oral tablet 1 tablet = 10 mg, By Mouth, Daily, # 10 tablet, 0 Refills, Maintenance, 05/31/21 13:29:00 EDT, Tablet, Partial fill upon patient request if the prescription is for a schedule II opioid drug. Start Date: 05/31/21 Status: Ordered predniSONE 5 mg oral tablet See Instructions, 20mg (4 tablets) daily x 7 days, then 10mg (2 tablets) daily x7 days then 5mg (1 tablet) daily x7 days then stop, # 60 tablet, 0 Refills, Maintenance, 04/04/21 13:21:00 EDT, Tablet,[place], [place] - [id number], Par... Start Date: 04/04/21 Status: Ordered propranolol 20 mg oral tablet 1, tablet, By Mouth, 3 times a day, # 90 tablet, Refills 5, Tot. Refills 5, Maintenance, 03/15/21 10:28:00 EDT, Route to Pharmacy Electronically, [place], [place] - [phone], Please cancel rx done under Barbara Padilla MD., 164.3... Start Date: 03/15/21 Status: Ordered propylthiouracil 50 mg oral tablet 2 tablet = 100 mg, By Mouth, Every 8 hours, # 180 tablet, 6 Refills, Maintenance, 01/10/21 10:34:00EDT, Tablet, [facility]/pharmacy #[id number], Partial fill upon patient request if the prescription is for a schedule II opioid drug., 164.3, cm, 01/06/21 13:12:00... Start Date: 01/10/21 Stop Date: 08/08/21 Status: Ordered spironolactone 25 mg oral tablet 25 mg, 1, tablet, By Mouth, Daily, # 30 tablet, Refills 0, Tot. Refills 0, Maintenance, 05/31/21 13:38:00 EDT, Route to Pharmacy Electronically, [place], [place] - [phone], Partial fill upon patient request if the prescription is f... Start Date: 05/31/21 Stop Date: 06/30/21 Status: Ordered traMADol 50 mg oral tablet [...] Diagnosis Diagnosis Type Effective Dates Health Status Clinical Service Informant HTN (hypertension) Discharge Diagnosis 05/31/21 Leg swelling Discharge Diagnosis 05/31/21 Prediabetes Discharge Diagnosis 05/31/21 Vital Signs Most recent to oldest [Reference Range]: 1 2 Height 168 cm (05/31/21 1:35 PM) 168 cm (05/31/21 1:11 PM) Weight 65.4 kg (05/31/21 1:11 PM) Oxygen Saturation [94-100 %] 100 % (05/31/21 1:11 PM) Pulse Rate [55-90 bpm] 100 bpm *H* (05/31/21 1:11 PM) Body Mass Index [18.5-24.99] 23.17 (05/31/21 1:11 PM) Blood Pressure [90-138/55-84 mm Hg] 140/ 80mm Hg *H* (05/31/21 1:35 PM) 164/94mm Hg *H* (05/31/21 1:11 PM) Mode of Delivery (Oxygen) Room air (05/31/21 1:11 PM) Blood pressure sites Arm, left (05/31/21 1:11 PM) Weight Obtained Via Standing scale (05/31/21 1:11 PM) Social History Social History Type Response Tobacco Use: 4 or less cigar ettes(less than 1/4 pack)/day in last 30 days. Other: 3-3 packs a day for about 30-40. Now 3-4 day. Sex
--- OUTSIDE RECORDS SUMMARY | 2024-04-01 01:23 | XMS_ITS | Continuity of Care Document ---
Author Organization [facility] Address [address] [place] [address]- Care Team Providers Care Ditch Cleaner Name Role Phone Ivanna Keller NP Primary Care Physician Encounter [facility] Date(s): 01/08/21 - 01/08/[address] [address]- Encounter Diagnosis Bilateral foot pain(Final) - 01/08/21 Discharge Disposition: A-D/C Home Attending Physician: Inge Schuster MD Admitting Physician: Inge Schuster MD Referring Physician: Not on Staff, Referring MD Allergies, Adverse Reactions, Alerts No Known Medication Allergies Medications amLODIPine 10 mg oral tablet 1 tablet = 10 mg, By Mouth, Daily, # 90 tablet, 1 Refills, Maintenance, 07/21/20 9:21:00 EST, Tablet, [place], [place] - [phone], Partial fill upon patient request if the [...] 01/17/21 9:19:00 EDT, 07/21/20 9:19:00 EST, Patch, [place], [place] - [phone], Partial fill upon patient request if the prescri... Start Date: 07/21/20 Stop Date: 01/17/21 Status: Ordered cloNIDine 0.1 mg/24 hr transdermal film, extended release 1 patch, Topically, Daily, CHANGE DAILY ROTATE PLACEMENT, # 90 patch, 1 Refills, Maintenance, 01/17/21 9:19:00 EDT, Patch, [place], [place] - [phone], Partial fill upon patient request if the prescription is for a schedule II opioi... Start Date: 01/17/21 Stop Date: 07/16/21 Status: Ordered Colace sodium 100 mg oral capsule 100 mg, 1, capsule, By Mouth, 2 times a day, # 180 capsule, Refills 0, Tot. Refills 0, Maintenance,10/28/20 15:36:00 EDT, Route to Pharmacy Electronically, [facility]/pharmacy #[id number], Partial fill upon patient request if the prescription is for a schedule II... Start Date: 10/28/20 Stop Date: 01/26/21 Status: Ordered duloxetine 60 mg oral enteric coated capsule 1 capsule = 60 mg, By Mouth, Daily, # 30 capsule, 1 Refills, Maintenance, 11/23/20 14:24:00 EDT, ECCapsule, [place], [place] - [phone], Partial fill upon patient request if the prescription is for a schedule II opioid drug., 164.3... Start Date: 11/23/20 Stop Date: 01/22/21 Status: Ordered famotidine 20 mg oral tablet 20 mg, 1, tablet, By Mouth, Daily at bedtime, for 21 days, # 21 tablet, Refills 0, Tot. Refills 0, Acute 01/16/21 14:49:00 EDT, 12/26/20 14:49:00 EDT, Route to Pharmacy Electronically, [facility] 3, Partial fill upon patient request if the... Start Date: 12/26/20 Stop Date: 01/16/21 Status: Ordered famotidine 40 mg oral tablet 1 tablet = 40 mg, By Mouth, 2 times a day, # 60 tablet, 2 Refills, Maintenance, 01/03/21 15:00:00 EDT, Tablet, [facility]/pharmacy #[id number], Partial fill upon patient request [...] 12/07/20 13:13:00 EDT, Route to Pharmacy Electronically, [facility], Partial fill upon patient request if the prescription is for a schedule... Start Date: 12/07/20 Status: Ordered Prolia 60 mg/mL subcutaneous solution See Instructions, 1 mL Subcutaneous Injection Every 6 months 3 days, # 1 each, 1 Refills, Maintenance, 06/27/20 9:26:00 EST, Solution, [place], [place] - [id number], Partial fill upon patient request, 164.3, cm, 06/15/20 14:33:00 EST,... Start Date: 06/27/20 Status: Ordered propranolol 20 mg oral tablet 20 mg, 1, tablet, By Mouth, 3 times a day, # 90 tablet, Refills 0, Tot. Refills 0, Maintenance, 12/07/20 13:13:00 EDT, Route to Pharmacy Electronically, [facility], Partial fill upon patient request if the prescription is for a schedule... Start Date: 12/07/20 Status: Ordered Problem List Condition Effective Dates Status Health Status Inform ant Anxiety(Confirmed) Active Blindness(Confirmed) Active COPD (chronic obstructive pu lmonary disease)(Confirmed) Active Depression(Confirmed) Active HLD (hyperlipidemia)(Confirmed) Active HTN (hypertension)(Confirmed) Active Hyperthyroidism(Confirmed) Active Osteoporosis(Confirmed) Active Vitamin D deficiency(Confirmed) Active Results Radiology Reports * Exam Date Time Procedure Performing Provider Status 01/08/21 9:14 AM Foot Min 3 Views Left Jodee Fontana; Auth (Verified) Notes: (Foot Min 3 Views Left) Reason For Exam: Pain RESULT: Foot Min 3 Views Left Foot Min 3 Views Right, Foot Min 3 Views Left, 3 views Hx of Present Illness: pt is blind and lost his balance and fell and complains of body pain; Reason: Pain; Clinical Question(s): Fracture COMPARISON: None. FINDINGS: No fractures or bone lesions. No arthritic changes. Normal soft tissues. IMPRESSION: Normal examination of both feet. WSN: [id number] Ordering Physician: Inge Schuster Dictated By: Luís Horton MD Dictated Date/Time: 01/08/21 9:17 am Reviewed By: Luís Horton MD Signed By: Luís Horton MD Signed Date/Time: 01/08/21 9:17 am Transcribed By: MARTHA Transcribed Date/Time: 01/08/21 9:15 am * Exam Date Time Procedure Performing Provider Status 01/08/21 9:14 AM Foot Min 3 Views Right Jodee Fontana ; Dandy (Verified) Notes: (Foot Min 3 Views Right) Reason For Exam: Pain RESULT: Foot Min 3 Views Right Foot Min 3 Views Right, Foot Min 3 Views Left, 3 views Hx of Present Illness: pt is blind and lost his balance and fell and complains of body pain; Reason: Pain; Clinical Question(s): Fracture COMPARISON: None. FINDINGS: No fractures or bone lesions. No arthritic changes. Normal soft tissues. IMPRESSION: Normal examination of both feet. WSN: [id number] Ordering Physician: Inge Schuster Dictated By: Luís Horton MD Dictated Date/Time: 01/08/21 9:17 am Reviewed By: Luís Horton MD Signed By: Luís Horton MD Signed Date/Time: 01/08/21 9:17 am Transcribed By: MARTHA Transcribed Date/Time: 01/08/21 9:15 am Vital Signs Most recent to oldest [Reference Range]: 1 2 3 Oxygen Saturation [94-100 %] 100 % (01/08/21 12:35 PM) 100 % (01/08/21 8:16 AM) 100 % (01/08/21 7:02 AM) Pulse Rate [55-90 bpm] 85 bpm (01/08/21 12:35 PM) 75 bpm (01/08/21 8:16 AM) 86 bpm (01/08/21 7:02 AM) Blood Pressure [90-138/55-84 mm Hg] 147/83mm Hg *H* (01/08/21 12:35 PM) 132/69mm Hg (01/08/21 8:16 AM) 115/92mm Hg (01/08/21 7:02 AM) Respiratory Rate [16-30 br/min] 16 br/min (01/08/21 12:35 PM) 20 br/min (01/08/21 8:16 AM) 16 br/min (01/08/21 7:02 AM) Temperature [96.8-100.4 DegF] 98.6 DegF (01/08/21 12:35 PM) 97.5 DegF (01/08/21 8:16 AM) 98.4 DegF (01/08/21 7:02 AM) Liters per Minute 0 L/min (01/08/21 8:16 AM) Mode of Delivery (Oxygen) Room air (01/08/21 12:35 PM) Room air (01/08/21 8:16 AM) Room air (01/08/21 7:02 AM) Blood pressure sites Arm, left (01/08/21 12:35 PM) Arm, left (01/08/21 8:16 AM) Arm, right (01/08/21 7:02 AM) Temperature Route Oral (01/08/21 12:35 PM) Oral (01/08/21 8:16 AM) Oral (01/08/21 7:02 AM) Social History Social History Type Response Tobacco Use: 4 or less cigar ettes(less than 1/4 pack)/day in last 30 days. Other: 3-3 packs a day for about 30-40. Now 3-4 day. Sex
--- OUTSIDE RECORDS SUMMARY | 2024-04-01 01:23 | XMS_ITS | Continuity of Care Document ---
Author Organization [facility] Adult Address [address] [place] [address]- Care Team Providers Care Elementary Teacher Name Role Phone Ivanna Keller NP Primary [facility] Phys[id number] Date[facility] 09/[facility] - 10/05/20 [facility] [address] [place] [address]- Allergies, Adverse Reactions, Alerts No Known Medication Allergies Medications amLODIPine 10 mg oral tablet 1 tablet = 10 mg, By Mouth, Daily, # 90 tablet, 1 Refills, Maintenance, 07/21/20 9:21:00 EST, Tablet, [place], [place] - [phone], Partial fill upon patient request if the [...] 1 Refills, Maintenance, 07/21/20 9:19:00 EST, Patch, [place], [place] - [phone], Partial fill upon patient request if the prescription is for a schedule II opioi... Start Date: 07/21/20 Stop Date: 01/17/21 Status: Ordered duloxetine 20 mg oral enteric coated capsule 1 capsule = 20 mg, By Mouth, Daily, # 90 capsule, 0 Refills, Maintenance, 09/30/20 11:20:00 EST, Capsule, [facility] [phone], Partial fill upon patient request if the [...] 1 Refills, Maintenance, 06/27/20 9:26:00 EST, Solution, [facility] [phone], Partial fill upon patient request, 164.3, cm, [...]
--- NOTE | 2024-04-01 01:24 | PC.NURSE ---
pt POC46- pt medicated with 25g dextrose in/50ml per .
--- NOTE | 2024-04-01 01:24 | PC.NURSE ---
pt continues to be a&ox4, respirations even and unlabored. pt speaking in full clear sentences. pt alert and drinking juice per at this time.
--- OUTSIDE RECORDS SUMMARY | 2024-04-01 01:24 | XMS_ITS | Continuity of Care Document ---
Author Organization [facility] Address [address] [place] [address]- Care Team Providers Care Human Resources Manager Manufacturing Name Role Phone Ivanna Keller NP Primary Care Physician Encounter [facility] [place] [place] Date(s): 04/17/21 - 05/17/21 [facility] [address] [place] [address]- Allergies, Adverse Reactions, Alerts No Known Medication [...] 13:22:00 EDT, REC Powder, [facility] - [place], [place] - [id number], Partial fill upon patient request if the prescription is for a schedule II opioid drug., 164.3, cm,... Start Date: 03/08/21 Status: Ordered cloNIDine 0.1 mg/24 hr transdermal film, extended release 1 patch, Topically, Daily, CHANGE DAILY ROTATE PLACEMENT, # 90 patch, 1 Refills, Maintenance, 01/17/21 9:19:00 EDT, Patch, [facility] [id number], Partial fill upon patient request if the prescription is for a schedule II opioi... Start Date: 01/17/21 Stop Date: 07/16/21 Status: Ordered duloxetine 60 mg oral enteric coated capsule 1 capsule = 60 mg, By Mouth, Daily, # 30 capsule, 5 Refills, Maintenance, 01/22/21 14:24:00 EDT, ECCapsule, [facility] [id number], Partial fill upon patient request if the prescription is for a schedule II opioid drug., 164.3... Start Date: 01/22/21 Stop Date: 07/21/21 Status: Ordered famotidine 40 mg oral tablet 1 tablet = 40 mg, By Mouth, 2 times a day, # 60 tablet, 2 Refills, Maintenance, 01/03/21 15:00:00 EDT, Tablet, [facility]/pharmacy #[id number], Partial fill upon patient request if the prescription is for a schedule II opioid drug., 164.3, cm, 01/03/21 14:30:00 ED... Start Date: 01/03/21 Stop Date: 04/03/21 Status: Ordered hydrochlorothiazide 25 mg oral tablet 25 mg, 1, tablet, By Mouth, Daily, # 30 tablet, Refills 0, Tot. Refills 0, Maintenance, 05/16/21 13:19:00 EDT, Route to Pharmacy Electronically, [facility] [phone], Partial fill upon patient request if the prescription is f... Start Date: 05/16/21 Stop Date: 06/15/21 Status: Ordered Keflex monohydrate 500 mg oral capsule 1 capsule = 500 mg, By Mouth, Every 12 hours, for 7 days, # 14 capsule, 0 Refills, Acute 05/20/21 11:12:00 EDT, 05/13/21 11:12:00 EDT, Capsule, [facility] [id number], Partialfill upon patient request if the prescription is fo... Start Date: 05/13/21 Stop Date: 05/20/21 Status: Ordered lisinopril 40 mg oral tablet 1 tablet, By Mouth, Daily, # 90 tablet, 4 Refills, [facility], 164.3, cm, 03/08/21 12:48:00 EDT, Height, 58.9, kg, 01/26/21 13:00:00 EDT, Dry Weight Start Date: 03/28/21 Status: Ordered montelukast 10 mg oral tablet 1, tablet, By Mouth, Daily, # 90 tablet, Refills 0, Route to Pharmacy Electronically, [facility], 164.3, cm, 03/08/21 12:48:00 EDT, Height, 58.9, kg, 01/26/21 13:00:00 EDT, Dry Weight Start Date: 03/28/21 Status: Ordered omeprazole 40 mg oral enteric coated capsule 1 capsule = 40 mg, By Mouth, Daily, # 90 capsule, 2 Refills, Maintenance, 01/26/21 14:22:00 EDT, ECCapsule, [facility] [phone], Partial fill upon patient request if the prescription is for a schedule II opioid drug., 164.3... Start Date: 01/26/21 Status: Ordered omeprazole 40 mg oral enteric coated capsule 1 capsule = 40 mg, By Mouth, Daily, # 90 capsule, 3 Refills, Maintenance, 01/26/21 14:57:00 EDT, ECCapsule, [facility]/pharmacy #[id number], Partial fill upon patient [...] tablet, 0 Refills, Maintenance, 04/04/21 13:21:00 EDT, Tablet,[facility] [id number], Par... Start Date: 04/04/21 Status: Ordered propranolol 20 mg oral tablet 1, tablet, By Mouth, 3 times a day, # 90 tablet, Refills 5, Tot. Refills 5, Maintenance, 03/15/21 10:28:00 EDT, Route to Pharmacy Electronically, [place], [place] - [id number], Please cancel rx done under Barbara Padilla MD., 164.3... Start Date: 03/15/21 Status: Ordered propylthiouracil 50 mg oral tablet 2 tablet = 100 mg, By Mouth, Every 8 hours, # 180 tablet, 6 Refills, Maintenance, 01/10/21 10:34:00EDT, Tablet, [facility]/pharmacy #[id number], Partial fill upon patient request if the prescription is for a schedule II opioid drug., 164.3, cm, 01/06/21 13:12:00... Start Date: 01/10/21 Stop Date: 08/08/21 Status: Ordered Tylenol 325 mg oral capsule 2 capsule = 650 mg, By Mouth, Every 6 hours, PRN as needed for pain, # 30 capsule, 0 Refills, Acute05/24/21 23:59:00 EDT, 05/13/21 11:13:00 EDT, Capsule, [place], [place] - [id number], Partial fill upon patient request if the prescri... Start Date: 05/13/21 Stop Date: 05/24/21 Status: Ordered Problem List Condition Effective Dates [...]
--- OUTSIDE RECORDS SUMMARY | 2024-04-01 01:24 | XMS_ITS | Continuity of Care Document ---
Author Organization [facility] Adult Address [address] [place] [address]- Care Team Providers Care Director Of Clinical Services Name Role Phone Ivanna Keller NP Primary Care Phys[id number] Date(s): 09/22/20 - 10/22/20 [facility] [address] [place] [address]- Allergies, Adverse Reactions, Alerts No Known Medication Allergies Medications amLODIPine 10 mg oral tablet 1 tablet = 10 mg, By Mouth, Daily, # 90 tablet, 1 Refills, Maintenance, 07/21/20 9:21:00 EST, Tablet, [place], [place] - [id number], Partial fill upon patient request if the [...] 1 Refills, Maintenance, 07/21/20 9:19:00 EST, Patch, [place], [place] - [id number], Partial fill upon patient request if the prescription is for a schedule II opioi... Start Date: 07/21/20 Stop Date: 01/17/21 Status: Ordered duloxetine 20 mg oral enteric coated capsule 1 capsule = 20 mg, By Mouth, Daily, # 90 capsule, 0 Refills, Maintenance, 09/30/20 11:20:00 EST, Capsule, [facility] [id number], Partial fill upon patient request if the [...] 1 Refills, Maintenance, 06/27/20 9:26:00 EST, Solution, [facility] [phone], Partial fill upon patient request, 164.3, cm, [...]
--- OUTSIDE RECORDS SUMMARY | 2024-04-01 01:24 | XMS_ITS | Continuity of Care Document ---
Author Organization [facility] Adult Address [address] [place] [address]- Care Team Providers Care Pocket Machine Operator Name Role Phone Ivanna Keller NP Primary [id number] Date(s): 07/06/21 - 08/05/21 [facility] [address] [place] [address]- Allergies, Adverse Reactions, Alerts No Known Medication Allergies Medications amoxicillin 500 mg oral tablet 2 tablet = 1,000 mg, By Mouth, 2 times a day, for 14 days, # 56 tablet, 0 Refills, Acute 08/09/21 14:12:00 EST, 07/26/21 14:12:00 EST, Tablet, [facility] [place], [place] - [id number], Partial fill upon patient request if the prescription is for... Start Date: 07/26/21 Stop Date: 08/09/21 Status: Ordered Breo Ellipta 100 mcg-25 mcg/inh [...] Dry Weight Start Date: 03/03/21 Status: Ordered clarithromycin 500 mg oral tablet 1 tablet = 500 mg, By Mouth, Every 12 hours, for 14 days, # 28 tablet, 0 Refills, Acute 08/09/21 14:12:00 EST, 07/26/21 14:12:00 EST, Tablet, [facility] [id number], Partial fill upon patient request if the prescription is for... Start Date: 07/26/21 Stop Date: 08/09/21 Status: Ordered cloNIDine 0.1 mg/24 hr transdermal film, extended release 1 patch, Topically, Daily, CHANGE DAILY ROTATE PLACEMENT, # 90 patch, 1 Refills, Maintenance, 01/17/21 9:19:00 EDT, Patch, [facility] [id number], Partial fill upon patient request if the [...] 5 Refills, Maintenance, 01/22/21 14:24:00 EDT, ECCapsule, [place], [place] - [id number], Partial fill upon patient request if the prescription is for a schedule II opioid drug., 164.3... Start Date: 01/22/21 Stop Date: 07/21/21 Status: Ordered famotidine 40 mg oral tablet 1 tablet = 40 mg, By Mouth, 2 times a day, # 60 tablet, 2 Refills, Maintenance, 01/03/21 15:00:00 EDT, Tablet, [facility]/pharmacy #[id number], Partial fill upon patient request if the prescription is for a schedule II opioid drug., 164.3, cm, 01/03/21 14:30:00 ED... Start Date: 01/03/21 Stop Date: 04/03/21 Status: Ordered lisinopril 40 mg oral tablet 1 tablet, By Mouth, Daily, # 90 tablet, 4 Refills, [facility], 164.3, cm, 03/08/21 12:48:00 EDT, Height, 58.9, kg, 01/26/21 13:00:00 EDT, Dry Weight Start Date: 03/28/21 Status: Ordered montelukast 10 mg oral tablet 1, tablet, By Mouth, Daily, # 90 tablet, Refills 1, Route to Pharmacy Electronically, [facility], 168, cm, 05/31/21 13:35:00 EDT, Height, 58.9, kg, 01/26/21 13:00:00 EDT, Dry Weight Start Date: 06/16/21 Status: Ordered omeprazole 40 mg oral enteric coated capsule 1 capsule = 40 mg, By Mouth, Daily, # 90 capsule, 2 Refills, Maintenance, 01/26/21 14:22:00 EDT, ECCapsule, [place], [place] - [phone], Partial fill upon patient request if the prescription is for a schedule II opioid drug., 164.3... Start Date: 01/26/21 Status: Ordered omeprazole 40 mg oral enteric coated capsule 1 capsule = 40 mg, By Mouth, Daily, # 90 capsule, 3 Refills, Maintenance, 01/26/21 14:57:00 EDT, [id number], Partial fill upon patient request if the prescription is for a schedule II opioid drug., 164.3, cm, 01/06/21 13:12:00 EDT,... Start Date: 01/26/21 Status: Ordered propranolol 20 mg oral tablet 1, tablet, By Mouth, 3 times a day, # 90 tablet, Refills 5, Tot. Refills 5, Maintenance, 03/15/21 10:28:00 EDT, Route to Pharmacy Electronically, [place], [place] - [id number], Please cancel rx done under Barbara Padilla MD., 164.3... Start Date: 03/15/21 Status: Ordered spironolactone 25 mg oral tablet 25 mg, 1, tablet, By Mouth, Daily, # 90 tablet, Refills 0, Tot. Refills 0, Maintenance, 06/21/21 10:23:00 EST, Route to Pharmacy Electronically, [facility] - [place], [place] - [phone], Partial fill upon patient request if the [...]
--- OUTSIDE RECORDS SUMMARY | 2024-04-01 01:24 | XMS_ITS | Continuity of Care Document ---
Author Organization [facility] Adult Address [address] [place] [address]- Care Team Providers Care Public Relations Player Name Role Phone Ivanna Keller NP Primary Care Physician [place] [facility] [id number] Date(s): 08/29/20 - 09/28/20 [facility] Adult [address] [place] [address]- Attending Physician: Cydney Murry Admitting Physician: AdmCydney langston Referring Physician: Admtr ArPao Allergies, Adverse Reactions, Alerts No Known Medication Allergies Medications amLODIPine 10 mg oral tablet 1 tablet = 10 mg, By Mouth, Daily, # 90 tablet, 1 Refills, Maintenance, 07/21/20 9:21:00 EST, Tablet, [place], [place] - [phone], Partial fill upon patient request if the [...] 1 Refills, Maintenance, 07/21/20 9:19:00 EST, Patch, [place], [place] - [phone], Partial fill upon patient request if the [...] 1 Refills, Maintenance, 06/27/20 9:26:00 EST, Solution, [facility] [place], [place] - [phone], Partial fill upon patient request, 164.3, cm, [...]
--- OUTSIDE RECORDS SUMMARY | 2024-04-01 01:24 | XMS_ITS | Continuity of Care Document ---
Author Organization [facility] Adult Address [address] [place] [address]- Care Team Providers Care Inspector Open Die Name Role Phone Ivanna Keller NP [id number] Date(s): 08/15/20 - 09/14/20 [facility] Adult [address] [place] [address]- Allergies, Adverse Reactions, Alerts No Known Medication Allergies Medications amLODIPine 10 mg oral tablet 1 tablet = 10 mg, By Mouth, Daily, # 90 tablet, 1 Refills, Maintenance, 07/21/20 9:21:00 EST, Tablet, [place], [place] - [phone], Partial fill upon patient request if the [...] 1 Refills, Maintenance, 07/21/20 9:19:00 EST, Patch, [place], [place] - [phone], Partial fill upon patient request if the [...] 1 Refills, Maintenance, 06/27/20 9:26:00 EST, Solution, [facility] [place], [place] - [phone], Partial fill upon patient request, 164.3, cm, [...]
--- OUTSIDE RECORDS SUMMARY | 2024-04-01 01:24 | XMS_ITS | Continuity of Care Document ---
Author Organization [facility] Adult Address [address] [place] [address]- Care Team Providers Care Mechanical Supervisor Name Role Phone Ivanna Keller NP Primary Care Physician En[place] [facility] [place] Date(s): 12/14/20 - 01/13/21 [facility] Adult [address] [place] [address]- Allergies, Adverse Reactions, Alerts No Known Medication Allergies Medications amLODIPine 10 mg oral tablet 1 tablet = 10 mg, By Mouth, Daily, # 90 tablet, 1 Refills, Maintenance, 07/21/20 9:21:00 EST, Tablet, [place], [place] - [id number], Partial fill upon patient request if the [...] 01/17/21 9:19:00 EDT, 07/21/20 9:19:00 EST, Patch, [place], [place] - [phone], Partial fill upon patient request if the prescri... Start Date: 07/21/20 Stop Date: 01/17/21 Status: Ordered cloNIDine 0.1 mg/24 hr transdermal film, extended release 1 patch, Topically, Daily, CHANGE DAILY ROTATE PLACEMENT, # 90 patch, 1 Refills, Maintenance, 01/17/21 9:19:00 EDT, Patch, [place], [place] - [phone], Partial fill upon patient request if the prescription is for a schedule II opioi... Start Date: 01/17/21 Stop Date: 07/16/21 Status: Ordered Colace sodium 100 mg oral capsule 100 mg, 1, capsule, By Mouth, 2 times a day, # 180 capsule, Refills 0, Tot. Refills 0, Maintenance,10/28/20 15:36:00 EDT, Route to Pharmacy Electronically, [facility]/pharmacy #[id number], Partial fill upon patient request if the prescription is for a schedule II... Start Date: 10/28/20 Stop Date: 01/26/21 Status: Ordered duloxetine 60 mg oral enteric coated capsule 1 capsule = 60 mg, By Mouth, Daily, # 30 capsule, 1 Refills, Maintenance, 11/23/20 14:24:00 EDT, ECCapsule, [place], [place] - [phone], Partial fill upon patient request if the prescription is for a schedule II opioid drug., 164.3... Start Date: 11/23/20 Stop Date: 01/22/21 Status: Ordered famotidine 20 mg oral tablet 20 mg, 1, tablet, By Mouth, Daily at bedtime, for 21 days, # 21 tablet, Refills 0, Tot. Refills 0, Acute 01/16/21 14:49:00 EDT, 12/26/20 14:49:00 EDT, Route to Pharmacy Electronically, [facility], Partial fill upon patient request if the... Start Date: 12/26/20 Stop Date: 01/16/21 Status: Ordered famotidine 40 mg oral tablet 1 tablet = 40 mg, By Mouth, 2 times a day, # 60 tablet, 2 Refills, Maintenance, 01/03/21 15:00:00 EDT, Tablet, [facility]/pharmacy #[id number], Partial fill upon patient request [...] 1 Refills, Maintenance, 06/27/20 9:26:00 EST, Solution, [facility] [place], [place] - [id number], Partial fill upon patient request, 164.3, cm, 06/15/20 14:33:00 EST,... Start Date: 06/27/20 Status: Ordered propranolol 20 mg oral tablet 20 mg, 1, tablet, By Mouth, 3 times a day, # 90 tablet, Refills 0, Tot. Refills 0, Maintenance, 12/07/20 13:13:00 EDT, Route to Pharmacy Electronically, [facility], Partial fill upon patient request if the prescription is for a schedule... Start Date: 12/07/20 Status: Ordered propylthiouracil 50 mg oral tablet 2 tablet = 100 mg, By Mouth, Every 8 hours, # 180 tablet, 6 Refills, Maintenance, 01/10/21 10:34:00EDT, Tablet, [facility]/pharmacy #[id number], Partial fill upon patient request [...]
--- OUTSIDE RECORDS SUMMARY | 2024-04-01 01:24 | XMS_ITS | Continuity of Care Document ---
Author Organization [facility] Adult Address [address] [place] [address]- Care Team Providers Care Bath Mix Operator Name Role Phone Ivanna Keller NP Primary Care Physician [phone] [id number] Date(s): 07/13/20 - 08/12/20 [facility] Adult [address] [place] [address]- Allergies, Adverse Reactions, Alerts No Known Medication Allergies Medications amLODIPine 10 mg oral tablet 1 tablet = 10 mg, By Mouth, Daily, # 90 tablet, 1 Refills, Maintenance, 07/21/20 9:21:00 EST, Tablet, [place], [place] - [phone], Partial fill upon patient request if the [...] 1 Refills, Maintenance, 07/21/20 9:19:00 EST, Patch, [place], [place] - [id number], Partial fill upon patient request if the [...] 1 Refills, Maintenance, 06/27/20 9:26:00 EST, Solution, [facility] [place], [place] - [id number], Partial fill upon patient request, 164.3, cm, [...]
--- OUTSIDE RECORDS SUMMARY | 2024-04-01 01:24 | XMS_ITS | Continuity of Care Document ---
Author Organization [facility] Address [address] [place] [address]- Care Team Providers Care Cigar Head Piercer Name Role Phone Not on Staff, PCP Primary Care Physician Unavail able Encounter [facility] [place] Date(s): 09/24/23 - 10/24/23 [facility] [address] [place] [id number] [[email or web address]] Allergies, Adverse Reactions, Alerts No Known Medication Allergies Medications Breo Ellipta 100 mcg-25 mcg/inh inhalation powder 1 puffs, Inhalation, Daily, # 60 Unknown, 8 Refills, [facility], [facility], INHALE 1 PUFF BY MOUTH INTO THE lungs DAILY, 170, cm, 07/20/21 8:17:00 EST, Height, 66, kg, 07/19/21 13:21:00 EST, Dry Weight Start Date: 09/20/21 Status: Ordered calcium-vitamin D 600 mg-400 intl units oral tablet 1 tablet, By Mouth, 2 times a day, # 60 tablet, 2 Refills, Maintenance, 04/15/22 14:16:00 EDT, [place], [place] - [id number], 30, 1 tablet By Mouth 2 times a day, 170, cm, 01/18/22 12:36:00 EDT, Height, 66, kg, 07/19/21 13:21:00 EST,... Start Date: 04/15/22 Status: Ordered cloNIDine 0.1 mg/24 hr transdermal film, extended release 1 patch, Topically, Daily, CHANGE DAILY ROTATE PLACEMENT, # 90 patch, 1 Refills, Maintenance, 01/17/21 9:19:00 EDT, Patch, [place], [place] - [phone], Partial fill upon patient request if the [...] 5 Refills, Maintenance, 01/22/21 14:24:00 EDT, ECCapsule, [facility] [phone], Partial fill upon patient request if the prescription is for a schedule II opioid drug., 164.3... Start Date: 01/22/21 Stop Date: 07/21/21 Status: Ordered famotidine 40 mg oral tablet 1 tablet = 40 mg, By Mouth, 2 times a day, # 60 tablet, 2 Refills, Maintenance, 01/03/21 15:00:00 EDT, Tablet, [facility]/pharmacy #[id number], Partial fill upon patient request if the prescription is for a schedule II opioid drug., 164.3, cm, 01/03/21 14:30:00 ED... Start Date: 01/03/21 Stop Date: 04/03/21 Status: Ordered ibuprofen 800 mg oral tablet 800 mg, 1, tablet, By Mouth, Daily, PRN, # 30 tablet, Refills 0, Tot. Refills 0, Maintenance, Pain , Moderate, 12/24/21 12:52:00 EDT, Route to Pharmacy Electronically, [facility] [id number], Partial fill upon patient request i... Start Date: 12/24/21 Status: Ordered levothyroxine 0.112 mg oral tablet 1 tablet = 112 mcg, By Mouth, Daily, # 30 tablet, 5 Refills, Maintenance, 09/30/23 10:42:00 EST, Tablet, [place], [place] - [phone], Partial fill upon patient request if the prescription is for a schedule II opioid drug., 170, cm,... Start Date: 09/30/23 Status: Ordered lisinopril 40 mg oral tablet 1 tablet, By Mouth, Daily, # 90 tablet, 0 Refills, 04/15/22 14:16:00 EDT, [place], [place] - [id number], 170, cm, 01/18/22 12:36:00 EDT, Height, 66, kg, 07/19/21 13:21:00 EST, Dry Weight Start Date: 04/15/22 Status: Ordered montelukast 10 mg oral tablet 1, tablet, By Mouth, Daily, # 90 tablet, Refills 1, Tot. Refills 1, 04/15/22 14:16:00 EDT, Route toPharmacy Electronically, [place], [place] - [id number], 170, cm, 01/18/22 12:36:00EDT, Height, 66, kg, 07/19/21 13:21:00 EST, Dry Weight Start Date: 04/15/22 Status: Ordered omeprazole 40 mg oral enteric coated capsule 1 capsule = 40 mg, By Mouth, Daily, # 90 capsule, 2 Refills, Maintenance, 01/26/21 14:22:00 EDT, ECCapsule, [place], [place] - [id number], Partial fill upon patient request if the prescription is for a schedule II opioid drug., 164.3... Start Date: 01/26/21 Status: Ordered omeprazole 40 mg oral enteric coated capsule 1 capsule = 40 mg, By Mouth, Daily, # 90 capsule, 3 Refills, Maintenance, 01/26/21 14:57:00 EDT, ECCsophie, [facility]/pharmacy #[id number], Partial fill upon patient request if the prescription is for a schedule II opioid drug., 164.3, cm, 01/06/21 13:12:00 EDT,... Start Date: 01/26/21 Status: Ordered propranolol 20 mg oral tablet 1, tablet, By Mouth, 3 times a day, # 90 tablet, Refills 8, Route to Pharmacy Electronically, [facility], 170, cm, 07/20/21 8:17:00 EST, Height, 66, kg, 07/19/21 13:21:00 EST, Dry Weight Start Date: 09/20/21 Status: Ordered spironolactone 25 mg oral tablet 1, tablet, By Mouth, Daily, # 90 tablet, Refills 0, Tot. Refills 0, 04/15/22 14:16:00 EDT, Route toPharmacy Electronically, [facility] [place], [place] - [id number], 170, cm, 01/18/22 12:36:00EDT, Height, 66, kg, [...] Team Personnel Name: Seun Christian RN Position: [facility] RN Member Role: Primary Care Nurse Name: Not on Staff, PCP Position: [facility] Physician (General Medicine) Member Role: PCP Care Team Related Persons Name: FLACO DALAL Address: [place] [address]
--- OUTSIDE RECORDS SUMMARY | 2024-04-01 01:24 | XMS_ITS | Continuity of Care Document ---
Author Organization [facility] Address [address] [place] [address]- Care Team Providers Care Kitchen Designer Name Role Phone Ivanna Keller NP Primary Care Physician [place] [facility] [place]13[place] 04/12/21 [facility] [address], [place] [address] Allergies, Adverse Reactions, Alerts No Known Medication Allergies Medications amLODIPine 10 mg oral tablet 1 tablet, By Mouth, Daily, # 90 tablet, 1 Refills, Maintenance, 02/23/21 9:38:00 EDT, [facility], 164.3, cm, 01/06/21 13:12:00 EDT, Height, 58.9, kg, 01/26/21 13:00:00 EDT, Dry Weight Start Date: 02/23/21 Status: Ordered calcium-vitamin D 600 mg-400 intl units oral tablet 1 tablet, By Mouth, 2 times a day, # 60 tablet, 11 Refills, Maintenance, 03/03/21 13:28:00 EDT, [facility], 30, TAKE ONE TABLET BY MOUTH two (2) times a day, 164.3, cm, 01/06/21 13:12:00 EDT, Height, 58.9, kg, 01/26/21 13:00:00 EDT, Dry Weight Start Date: 03/03/21 Status: Ordered cholestyramine 4 g/5.5 g oral powder for reconstitution = 4 Gm, By Mouth, 2 times a day, # 60 each, 3 Refills, Maintenance, 03/08/21 13:22:00 EDT, REC Powder, [facility] [place], [place] - [id number], Partial fill upon patient request if the prescription is for a schedule II opioid drug., 164.3, cm,... Start Date: 03/08/21 Status: Ordered cloNIDine 0.1 mg/24 hr transdermal film, extended release 1 patch, Topically, Daily, CHANGE DAILY ROTATE PLACEMENT, # 90 patch, 1 Refills, Maintenance, 01/17/21 9:19:00 EDT, Patch, [place], [place] - [phone], Partial fill upon patient request if the prescription is for a schedule II opioi... Start Date: 01/17/21 Stop Date: 07/16/21 Status: Ordered duloxetine 60 mg oral enteric coated capsule 1 capsule = 60 mg, By Mouth, Daily, # 30 capsule, 5 Refills, Maintenance, 01/22/21 14:24:00 EDT, ECCapsule, [place], [place] - [id number], Partial fill upon patient request if the prescription is for a schedule II opioid drug., 164.3... Start Date: 01/22/21 Stop Date: 07/21/21 Status: Ordered famotidine 40 mg oral tablet 1 tablet = 40 mg, By Mouth, 2 times a day, # 60 tablet, 2 Refills, Maintenance, 01/03/21 15:00:00 EDT, Tablet, [facility]/pharmacy #[id number], Partial fill upon patient request if the prescription is for a schedule II opioid drug., 164.3, cm, 01/03/21 14:30:00 ED... Start Date: 01/03/21 Stop Date: 04/03/21 Status: Ordered lisinopril 40 mg oral tablet 1 tablet, By Mouth, Daily, # 90 tablet, 4 Refills, [facility], 164.3, cm, 03/08/21 12:48:00 EDT, Height, 58.9, kg, 01/26/21 13:00:00 EDT, Dry Weight Start Date: 03/28/21 Status: Ordered montelukast 10 mg oral tablet 1, tablet, By Mouth, Daily, # 90 tablet, Refills 0, Route to Pharmacy Electronically, [facility], 164.3, cm, 03/08/21 12:48:00 EDT, Height, 58.9, kg, 01/26/21 13:00:00 EDT, Dry Weight Start Date: 03/28/21 Status: Ordered omeprazole 40 mg oral enteric coated capsule 1 capsule = 40 mg, By Mouth, Daily, # 90 capsule, 2 Refills, Maintenance, 01/26/21 14:22:00 EDT, ECCapsule, [place], [place] - [id number], Partial fill upon patient request if the prescription is for a schedule II opioid drug., 164.3... Start Date: 01/26/21 Status: Ordered omeprazole 40 mg oral enteric coated capsule 1 capsule = 40 mg, By Mouth, Daily, # 90 capsule, 3 Refills, Maintenance, 01/26/21 14:57:00 EDT, ECCapsule, [facility]/pharmacy #[id number], Partial fill upon patient request if [...] tablet, 0 Refills, Maintenance, 04/04/21 13:21:00 EDT, Tablet,[place], [place] - [id number], Par... Start Date: 04/04/21 Status: Ordered propranolol 20 mg oral tablet 1, tablet, By Mouth, 3 times a day, # 90 tablet, Refills 5, Tot. Refills 5, Maintenance, 03/15/21 10:28:00 EDT, Route to Pharmacy Electronically, [place], [place] - [id number], Please cancel rx done under Barbara Padilla MD., 164.3... Start Date: 03/15/21 Status: Ordered propylthiouracil 50 mg oral tablet 2 tablet = 100 mg, By Mouth, Every 8 hours, # 180 tablet, 6 Refills, Maintenance, 01/10/21 10:34:00EDT, [id number] Partial fill upon patient request if [...]
--- OUTSIDE RECORDS SUMMARY | 2024-04-01 01:24 | XMS_ITS | Continuity of Care Document ---
Author Organization [facility] Address [address] [place] [address]- Care Team Providers Care Aircraft Cabin Cleaner Name Role Phone Ivanna Keller NP Primary Care Physician [place] [facility] [place] - 10/25/[address] [address]- Discharge Disposition: A-D/C Home Attending Physician: Jocelin Oneill MD Admitting Physician: Jocelin Oneill MD Referring Physician: Not on Staff, Referring MD Allergies, Adverse Reactions, Alerts No Known Medication Allergies Medications amLODIPine 10 mg oral tablet 1 tablet = 10 mg, By Mouth, Daily, # 90 tablet, 1 Refills, Maintenance, 07/21/20 9:21:00 EST, Tablet, [place], [place] - [id number], Partial fill upon patient request if the [...] 1 Refills, Maintenance, 07/21/20 9:19:00 EST, Patch, [place], [place] - [phone], Partial fill upon patient request if the prescription is for a schedule II opioi... Start Date: 07/21/20 Stop Date: 01/17/21 Status: Ordered duloxetine 20 mg oral enteric coated capsule 1 capsule = 20 mg, By Mouth, Daily, # 90 capsule, 0 Refills, Maintenance, 09/30/20 11:20:00 EST, Capsule, [facility] [id number], Partial fill upon patient request if the [...] Refills, Maintenance, 10/25/20 12:17:00 EDT, CR Tablet, [facility]/pharmacy #[id number], Partial fill upon patient request if [...] 12:17:00 EDT, 10/25/20 12:17:00 EDT, REC Powder, [facility]/pharmacy #... Start Date: 10/25/20 Stop Date: 11/01/20 Status: Ordered Prolia 60 mg/mL subcutaneous solution See Instructions, 1 mL Subcutaneous Injection Every 6 months 3 days, # 1 each, 1 Refills, Maintenance, 06/27/20 9:26:00 EST, Solution, [place], [place] - [id number], Partial fill upon patient request, 164.3, cm, 06/15/20 14:33:00 EST,... Start Date: 06/27/20 Status: Ordered Problem List Condition Effective Dates Status Health Status Inform ant Anxiety(Confirmed) Active Blindness(Confirmed) Active COPD (chronic obstructive pu lmonary disease)(Confirmed) Active Depression(Confirmed) Active HLD (hyperlipidemia)(Confirmed) Active HTN (hypertension)(Confirmed) Active Osteoporosis(Confirmed) Active Vitamin D deficiency(Confirmed) Active Vital Signs Most recent to oldest [Reference Range]: 1 2 Oxygen Saturation [94-100 %] 99 % (10/25/20 12:46 PM) 100 % (10/25/20 7:53 AM) Pulse Rate [55-90 bpm] 104 bpm *H* (10/25/20 12:46 PM) 107 bpm *H* (10/25/20 7:53 AM) Blood Pressure [90-138/55-84 mm Hg] 126/ 71mm Hg (10/25/20 12:46 PM) 124/69mm Hg (10/25/20 7:53 AM) Respiratory Rate [16-30 br/min] 20 br/mi n (10/25/20 12:46 PM) 18 br/min (10/25/20 7:53 AM) Temperature [96.8-100.4 DegF] 98.2 DegF (10/25/20 7:53 AM) Mode of Delivery (Oxygen) Room air (10/25/20 12:46 PM) Room air (10/25/20 7:53 AM) Blood pressure sites Arm, left (10/25/20 12:46 PM) Arm, left (10/25/20 7:53 AM) Temperature Route Oral (10/25/20 7:53 AM) Social History Social History Type Response Tobacco Use: 4 or less cigar ettes(less than 1/4 pack)/day in last 30 days. Other: 3-3 packs a day for about 30-40. Now 3-4 day. Sex
--- OUTSIDE RECORDS SUMMARY | 2024-04-01 01:24 | XMS_ITS | Continuity of Care Document ---
Author Organization [facility] Address [address] [place] [address]- Care Team Providers Care Skid Man Name Role Phone Ivanna Keller NP Primary Care [id number] 07/12/21 - 08/11/21 [facility] [address] [place] [address]- Allergies, Adverse Reactions, Alerts No Known Medication [...] 01/17/21 9:19:00 EDT, Patch, [facility] [place], [place] - [id number], Partial fill upon patient request if the [...] 5 Refills, Maintenance, 01/22/21 14:24:00 EDT, ECCapsule, [place], [place] - [id number], Partial fill upon patient request if the prescription is for a schedule II opioid drug., 164.3... Start Date: 01/22/21 Stop Date: 07/21/21 Status: Ordered famotidine 40 mg oral tablet 1 tablet = 40 mg, By Mouth, 2 times a day, # 60 tablet, 2 Refills, Maintenance, 01/03/21 15:00:00 EDT, Tablet, [facility]/pharmacy #[id number], Partial fill upon patient request if the prescription is for a schedule II opioid drug., 164.3, cm, 01/03/21 14:30:00 ED... Start Date: 01/03/21 Stop Date: 04/03/21 Status: Ordered lisinopril 40 mg oral tablet 1 tablet, By Mouth, Daily, # 90 tablet, 4 Refills, [facility], 164.3, cm, 03/08/21 12:48:00 EDT, Height, 58.9, kg, 01/26/21 13:00:00 EDT, Dry Weight Start Date: 03/28/21 Status: Ordered montelukast 10 mg oral tablet 1, tablet, By Mouth, Daily, # 90 tablet, Refills 1, Route to Pharmacy Electronically, [facility], 168, cm, 05/31/21 13:35:00 EDT, Height, 58.9, kg, 01/26/21 13:00:00 EDT, Dry Weight Start Date: 06/16/21 Status: Ordered omeprazole 40 mg oral enteric coated capsule 1 capsule = 40 mg, By Mouth, Daily, # 90 capsule, 2 Refills, Maintenance, 01/26/21 14:22:00 EDT, ECCapsule, [place], [place] - [id number], Partial fill upon patient request if the prescription is for a schedule II opioid drug., 164.3... Start Date: 01/26/21 Status: Ordered omeprazole 40 mg oral enteric coated capsule 1 capsule = 40 mg, By Mouth, Daily, # 90 capsule, 3 Refills, Maintenance, 01/26/21 14:57:00 EDT, ECCapsule, [facility]/pharmacy #[id number], Partial fill upon patient request if the prescription is for a schedule II opioid drug., 164.3, cm, 01/06/21 13:12:00 EDT,... Start Date: 01/26/21 Status: Ordered propranolol 20 mg oral tablet 1, tablet, By Mouth, 3 times a day, # 90 tablet, Refills 5, Tot. Refills 5, Maintenance, 03/15/21 10:28:00 EDT, Route to Pharmacy Electronically, [facility] [id number], Please cancel rx done under Barbara Padilla MD., 164.3... Start Date: 03/15/21 Status: Ordered spironolactone 25 mg oral tablet 25 mg, 1, tablet, By Mouth, Daily, # 90 tablet, Refills 0, Tot. Refills 0, Maintenance, 06/21/21 10:23:00 EST, Route to Pharmacy Electronically, [facility] [id number], Partial fill upon patient request if the [...]
--- OUTSIDE RECORDS SUMMARY | 2024-04-01 01:24 | XMS_ITS | Continuity of Care Document ---
Author Organization [facility] ter Address [address] [place] [address]- Care Team Providers Care Parts Sales Associate Name Role Phone Ivanna Keller NP Primary Care Physician Encounter [facility] Date(s): 07/19/21 - 07/19/[address] [address] Discharge Disposition: A-D/C Home Attending Physician: Liana Khoury MD Admitting Physician: Liana Khoury MD Referring Physician: Liana Khoury MD Allergies, Adverse Reactions, Alerts No Known [...] 01/17/21 9:19:00 EDT, Patch, [facility] - [place], [place] - [phone], Partial fill upon patient request if the [...] capsule, 5 Refills, Maintenance, 01/22/21 14:24:00 EDT, Shalini, [facility] - [place], [place] - [phone], Partial fill upon patient request if the prescription is for a schedule II opioid drug., 164.3... Start Date: 01/22/21 Stop Date: 07/21/21 Status: Ordered famotidine 40 mg oral tablet 1 tablet = 40 mg, By Mouth, 2 times a day, # 60 tablet, 2 Refills, Maintenance, 01/03/21 15:00:00 EDT, Tablet, [facility]/pharmacy #[id number], Partial fill upon patient request if the prescription is for a schedule II opioid drug., 164.3, cm, 01/03/21 14:30:00 ED... Start Date: 01/03/21 Stop Date: 04/03/21 Status: Ordered lisinopril 40 mg oral tablet 1 tablet, By Mouth, Daily, # 90 tablet, 4 Refills, [facility], 164.3, cm, 03/08/21 12:48:00 EDT, Height, 58.9, kg, 01/26/21 13:00:00 EDT, Dry Weight Start Date: 03/28/21 Status: Ordered montelukast 10 mg oral tablet 1, tablet, By Mouth, Daily, # 90 tablet, Refills 1, Route to Pharmacy Electronically, [facility], 168, cm, 05/31/21 13:35:00 EDT, Height, 58.9, kg, 01/26/21 13:00:00 EDT, Dry Weight Start Date: 06/16/21 Status: Ordered omeprazole 40 mg oral enteric coated capsule 1 capsule = 40 mg, By Mouth, Daily, # 90 capsule, 2 Refills, Maintenance, 01/26/21 14:22:00 EDT, [facility], [place], [place] - [phone], Partial fill upon patient request if the prescription is for a schedule II opioid drug., 164.3... Start Date: 01/26/21 Status: Ordered omeprazole 40 mg oral enteric coated capsule 1 capsule = 40 mg, By Mouth, Daily, # 90 capsule, 3 Refills, Maintenance, 01/26/21 14:57:00 EDT, ECCapsule, [facility]/pharmacy #[id number], Partial fill upon patient request if the prescription is for a schedule II opioid drug., 164.3, cm, 01/06/21 13:12:00 EDT,... Start Date: 01/26/21 Status: Ordered propranolol 20 mg oral tablet 1, tablet, By Mouth, 3 times a day, # 90 tablet, Refills 5, Tot. Refills 5, Maintenance, 03/15/21 10:28:00 EDT, Route to Pharmacy Electronically, [facility] [id number], Please cancel rx done under Barbara Padilla MD., 164.3... Start Date: 03/15/21 Status: Ordered spironolactone 25 mg oral tablet 25 mg, 1, tablet, By Mouth, Daily, # 90 tablet, Refills 0, Tot. Refills 0, Maintenance, 06/21/21 10:23:00 EST, Route to Pharmacy Electronically, [facility] [id number], Partial fill upon patient request if the [...] Active Prediabetes(Confirmed) Active Vitamin D deficiency(Confirmed) Active Vital Signs Most recent to oldest [Reference Range]: 1 2 3 Height 170 cm (07/19/21 1:21 PM) Weight 66 kg (07/19/21 1:21 PM) Oxygen Saturation [94-100 %] 97 % (07/19/21 2:29 PM) 99 % (07/19/21 2:22 PM) 99 % (07/19/21 1:21 PM) Pulse Rate [55-90 bpm] 116 bpm *H* (07/19/21 1:21 PM) Body Mass Index [18.5-24.99] 22.84 (07/19/21 1:21 PM) Blood Pressure [90-138/55-84 mm Hg] 116/74mm Hg (07/19/21 2:29 PM) 102/69mm Hg (07/19/21 2:22 PM) 134/79mm Hg (07/19/21 1:21 PM) Respiratory Rate [16-30 br/min] 17 br/min (07/19/21 2:29 PM) 19 br/min (07/19/21 2:22 PM) 22 br/min (07/19/21 1:21 PM) Temperature [96.8-100.4 DegF] 99.8 DegF (07/19/21 1:21 PM) Mode of Delivery (Oxygen) Room air (07/19/21 2:29 PM) Simple face mask (07/19/21 2:22 PM) Room air (07/19/21 1:21 PM) Blood pressure sites Arm, left (07/19/21 1:21 PM) Temperature Route Temporal (07/19/21 1:21 PM) Dry Weight 66 kg (07/19/21 1:21 PM) Social History Social History Type Response Tobacco Use: 4 or less cigar ettes(less than 1/4 pack)/day in last 30 days. Other: 3-3 packs a day for about 30-40. Now 3-4 day. Sex
--- OUTSIDE RECORDS SUMMARY | 2024-04-01 01:24 | XMS_ITS | Continuity of Care Document ---
Author Organization [facility] Address [address] [place] [address]- Care Team Providers Care Museum Librarian Name Role Phone Ivanna Keller NP Primary Care Physician En[place] [facility] [place] 05/16/21 - 05/23/21 [facility] [address] [place] [address]- Encounter Diagnosis Leg swelling(Discharge Diagnosis) - 05/16/21 HTN (hypertension)(Discharge Diagnosis) - 05/16/21 Attending Physician: Bhavin Mo MD Allergies, Adverse [...] 13:22:00 EDT, REC Powder, [facility] - [place], [place] - [id number], Partial fill upon patient request if the prescription is for a schedule II opioid drug., 164.3, cm,... Start Date: 03/08/21 Status: Ordered cloNIDine 0.1 mg/24 hr transdermal film, extended release 1 patch, Topically, Daily, CHANGE DAILY ROTATE PLACEMENT, # 90 patch, 1 Refills, Maintenance, 01/17/21 9:19:00 EDT, Patch, [facility], [place] - [phone], Partial fill upon patient request if the prescription is for a schedule II opioi... Start Date: 01/17/21 Stop Date: 07/16/21 Status: Ordered duloxetine 60 mg oral enteric coated capsule 1 capsule = 60 mg, By Mouth, Daily, # 30 capsule, 5 Refills, Maintenance, 01/22/21 14:24:00 EDT, ECCapsule, [facility], [place] - [phone], Partial fill upon patient request if the prescription is for a schedule II opioid drug., 164.3... Start Date: 01/22/21 Stop Date: 07/21/21 Status: Ordered famotidine 40 mg oral tablet 1 tablet = 40 mg, By Mouth, 2 times a day, # 60 tablet, 2 Refills, Maintenance, 01/03/21 15:00:00 EDT, Tablet, [facility]/pharmacy #[id number], Partial fill upon patient request if the prescription is for a schedule II opioid drug., 164.3, cm, 01/03/21 14:30:00 ED... Start Date: 01/03/21 Stop Date: 04/03/21 Status: Ordered hydrochlorothiazide 25 mg oral tablet 25 mg, 1, tablet, By Mouth, Daily, # 30 tablet, Refills 0, Tot. Refills 0, Maintenance, 05/16/21 13:19:00 EDT, Route to Pharmacy Electronically, [facility], [place] - [id number], Partial fill upon patient request if the prescription is f... Start Date: 05/16/21 Stop Date: 06/15/21 Status: Ordered lisinopril 40 mg oral tablet 1 tablet, By Mouth, Daily, # 90 tablet, 4 Refills, [facility], 164.3, cm, 03/08/21 12:48:00 EDT, Height, 58.9, kg, 01/26/21 13:00:00 EDT, Dry Weight Start Date: 03/28/21 Status: Ordered montelukast 10 mg oral tablet 1, tablet, By Mouth, Daily, # 90 tablet, Refills 0, Route to Pharmacy Electronically, [facility], 164.3, cm, 03/08/21 12:48:00 EDT, Height, 58.9, kg, 01/26/21 13:00:00 EDT, Dry Weight Start Date: 03/28/21 Status: Ordered omeprazole 40 mg oral enteric coated capsule 1 capsule = 40 mg, By Mouth, Daily, # 90 capsule, 2 Refills, Maintenance, 01/26/21 14:22:00 EDT, [facility], [place], [place] - [id number], Partial fill upon patient request if the prescription is for a schedule II opioid drug., 164.3... Start Date: 01/26/21 Status: Ordered omeprazole 40 mg oral enteric coated capsule 1 capsule = 40 mg, By Mouth, Daily, # 90 capsule, 3 Refills, Maintenance, 01/26/21 14:57:00 EDT, Shalini, [facility]/pharmacy #[id number], Partial fill upon patient request [...] tablet, 0 Refills, Maintenance, 04/04/21 13:21:00 EDT, Tablet,[place], [place] - [id number], Par... Start Date: 04/04/21 Status: Ordered propranolol 20 mg oral tablet 1, tablet, By Mouth, 3 times a day, # 90 tablet, Refills 5, Tot. Refills 5, Maintenance, 03/15/21 10:28:00 EDT, Route to Pharmacy Electronically, [facility] [id number], Please cancel rx done under Barbara Padilla MD., 164.3... Start Date: 03/15/21 Status: Ordered propylthiouracil 50 mg oral tablet 2 tablet = 100 mg, By Mouth, Every 8 hours, # 180 tablet, 6 Refills, Maintenance, 01/10/21 10:34:00EDT, Tablet, [facility]/pharmacy #[id number], Partial fill upon patient request if the prescription is for a schedule II opioid drug., 164.3, cm, 01/06/21 13:12:00... Start Date: 01/10/21 Stop Date: 08/08/21 Status: Ordered Tylenol 325 mg oral capsule 2 capsule = 650 mg, By Mouth, Every 6 hours, PRN as needed for pain, # 30 capsule, 0 Refills, Acute05/24/21 23:59:00 EDT, 05/13/21 11:13:00 EDT, Capsule, [facility] - [place], [place] - [phone], Partial fill upon patient request if the [...] Dates Health Status Cl inical Service Informant Leg swelling Discharge Diagnosis 05/16/21 HTN (hypertension) Discharge Diagnosis 05/16/21 Vital Signs Most recent to oldest [Reference Range]: 1 2 3 Height 168 cm (05/16/21 1:12 PM) 168 cm (05/16/21 12:57 PM) 168 cm (05/16/21 12:47 PM) Weight 65.8 kg (05/16/21 12:47 PM) Oxygen Saturation [94-100 %] 96 % (05/16/21 12:47 PM) Pulse Rate [55-90 bpm] 94 bpm *H* (05/16/21 12:47 PM) Body Mass Index [18.5-24.99] 23.31 (05/16/21 12:47 PM) Blood Pressure [90-138/55-84 mm Hg] 130/80mm Hg (05/16/21 1:12 PM) 171/91mm Hg *H* (05/16/21 12:57 PM) 184/89mm Hg *H* (05/16/21 12:47 PM) Mode of Delivery (Oxygen) Room air (05/16/21 12:47 PM) Blood pressure sites Arm, left (05/16/21 12:57 PM) Arm, right (05/16/21 12:47 PM) Weight Obtained Via Standing scale (05/16/21 12:47 PM) Social History Social History Type Response Tobacco Use: 4 or less cigar ettes(less than 1/4 pack)/day in last 30 days. Other: 3-3 packs a day for about 30-40. Now 3-4 day. Sex
--- OUTSIDE RECORDS SUMMARY | 2024-04-01 01:24 | XMS_ITS | Continuity of Care Document ---
Author Organization [facility] Address [address] [place] [address]- Care Team Providers Care Mobile Battery Technician Name Role Phone Not on Staff, PCP Primary Care Physician Unavail able Encounter [facility] [place] Date(s): 10/05/22 - 11/04/22 [facility] [address] [place] [address] Attending Physician: AdmCydney langston Admitting Physician: Admtr, Ar8 Referring Physician: Admtr, Ar8 Allergies, Adverse Reactions, Alerts No Known Medication Allergies Medications Breo Ellipta 100 mcg-25 mcg/inh inhalation powder 1 puffs, Inhalation, Daily, # 60 Unknown, 8 Refills, [facility], [facility], INHALE 1 PUFF BY MOUTH INTO THE lungs DAILY, 170, cm, 07/20/21 8:17:00 EST, Height, 66, kg, 07/19/21 13:21:00 EST, Dry Weight Start Date: 09/20/21 Status: Ordered calcium-vitamin D 600 mg-400 intl units oral tablet 1 tablet, By Mouth, 2 times a day, # 60 tablet, 2 Refills, Maintenance, 04/15/22 14:16:00 EDT, [place], [place] - [id number], 30, 1 tablet By Mouth 2 times a day, 170, cm, 01/18/22 12:36:00 EDT, Height, 66, kg, 07/19/21 13:21:00 EST,... Start Date: 04/15/22 Status: Ordered cloNIDine 0.1 mg/24 hr transdermal film, extended release 1 patch, Topically, Daily, CHANGE DAILY ROTATE PLACEMENT, # 90 patch, 1 Refills, Maintenance, 01/17/21 9:19:00 EDT, Patch, [place], [place] - [phone], Partial fill upon patient request if the [...] 5 Refills, Maintenance, 01/22/21 14:24:00 EDT, ECCapsule, [facility] [phone], Partial fill upon patient request if the prescription is for a schedule II opioid drug., 164.3... Start Date: 01/22/21 Stop Date: 07/21/21 Status: Ordered famotidine 40 mg oral tablet 1 tablet = 40 mg, By Mouth, 2 times a day, # 60 tablet, 2 Refills, Maintenance, 01/03/21 15:00:00 EDT, Tablet, [facility]/pharmacy #[id number], Partial fill upon patient request if the prescription is for a schedule II opioid drug., 164.3, cm, 01/03/21 14:30:00 ED... Start Date: 01/03/21 Stop Date: 04/03/21 Status: Ordered ibuprofen 800 mg oral tablet 800 mg, 1, tablet, By Mouth, Daily, PRN, # 30 tablet, Refills 0, Tot. Refills 0, Maintenance, Pain , Moderate, 12/24/21 12:52:00 EDT, Route to Pharmacy Electronically, [place], [place] - [id number], Partial fill upon patient request i... Start Date: 12/24/21 Status: Ordered levothyroxine 0.112 mg oral tablet 1 tablet = 112 mcg, By Mouth, Daily, # 30 tablet, 5 Refills, Maintenance, 10/05/22 12:13:00 EST, Tablet, [facility] [phone], Partial fill upon patient request if the prescription is for a schedule II opioid drug., 170, cm,... Start Date: 10/05/22 Status: Ordered lisinopril 40 mg oral tablet 1 tablet, By Mouth, Daily, # 90 tablet, 0 Refills, 04/15/22 14:16:00 EDT, [place], [place] - [id number], 170, cm, 01/18/22 12:36:00 EDT, Height, 66, kg, 07/19/21 13:21:00 EST, Dry Weight Start Date: 04/15/22 Status: Ordered montelukast 10 mg oral tablet 1, tablet, By Mouth, Daily, # 90 tablet, Refills 1, Tot. Refills 1, 04/15/22 14:16:00 EDT, Route toPharmacy Electronically, [facility] [id number], 170, cm, 01/18/22 12:36:00EDT, Height, 66, kg, 07/19/21 13:21:00 EST, Dry Weight Start Date: 04/15/22 Status: Ordered omeprazole 40 mg oral enteric coated capsule 1 capsule = 40 mg, By Mouth, Daily, # 90 capsule, 2 Refills, Maintenance, 01/26/21 14:22:00 EDT, [facility], [place], [place] - [id number], Partial fill upon patient request if the prescription is for a schedule II opioid drug., 164.3... Start Date: 01/26/21 Status: Ordered omeprazole 40 mg oral enteric coated capsule 1 capsule = 40 mg, By Mouth, Daily, # 90 capsule, 3 Refills, Maintenance, 01/26/21 14:57:00 EDT, ECCsophie, [facility]/pharmacy #[id number], Partial fill upon patient request if the prescription is for a schedule II opioid drug., 164.3, cm, 01/06/21 13:12:00 EDT,... Start Date: 01/26/21 Status: Ordered propranolol 20 mg oral tablet 1, tablet, By Mouth, 3 times a day, # 90 tablet, Refills 8, Route to Pharmacy Electronically, [facility], 170, cm, 07/20/21 8:17:00 EST, Height, 66, kg, 07/19/21 13:21:00 EST, Dry Weight Start Date: 09/20/21 Status: Ordered spironolactone 25 mg oral tablet 1, tablet, By Mouth, Daily, # 90 tablet, Refills 0, Tot. Refills 0, 04/15/22 14:16:00 EDT, Route toPharmacy Electronically, [facility] - [place], [place] - [id number], 170, cm, 01/18/22 12:36:00EDT, Height, 66, kg, [...] Team Personnel Name: Seun Christian RN Position: [facility] RN Member Role: Primary Care Nurse Name: Not on Staff, PCP Position: [facility] Physician (General Medicine) Member Role: PCP Care Team Related Persons Name: MULUGETA FLACO Address: [place] [address]
--- OUTSIDE RECORDS SUMMARY | 2024-04-01 01:24 | XMS_ITS | Continuity of Care Document ---
Author Organization [facility] Address [address] [place] [address]- Care Team Providers Care Processing Lead Name Role Phone Ivanna Keller NP Primary Care Physician Encounter [facility] Date(s): 05/12/21 - 05/13/[address] [address]- Encounter Diagnosis Cellulitis of foot, left(Final) - 05/13/21 Discharge Disposition: A-D/C Home Attending Physician: Jordan Del Castillo MD Admitting Physician: Jordan Del Castillo MD Referring Physician: Not on Staff, Referring [...] Refills, Maintenance, 03/08/21 13:22:00 EDT, [facility], [place], [place] - [id number], Partial fill upon patient request if the prescription is for a schedule II opioid drug., 164.3, cm,... Start Date: 03/08/21 Status: Ordered cloNIDine 0.1 mg/24 hr transdermal film, extended release 1 patch, Topically, Daily, CHANGE DAILY ROTATE PLACEMENT, # 90 patch, 1 Refills, Maintenance, 01/17/21 9:19:00 EDT, Patch, [place], [place] - [phone], Partial fill upon patient request if the prescription is for a schedule II opioi... Start Date: 01/17/21 Stop Date: 07/16/21 Status: Ordered duloxetine 60 mg oral enteric coated capsule 1 capsule = 60 mg, By Mouth, Daily, # 30 capsule, 5 Refills, Maintenance, 01/22/21 14:24:00 EDT, ECCapsule, [facility] [id number], Partial fill upon patient request if the prescription is for a schedule II opioid drug., 164.3... Start Date: 01/22/21 Stop Date: 07/21/21 Status: Ordered famotidine 40 mg oral tablet 1 tablet = 40 mg, By Mouth, 2 times a day, # 60 tablet, 2 Refills, Maintenance, 01/03/21 15:00:00 EDT, Tablet, [facility]/pharmacy #[id number], Partial fill upon patient request if the prescription is for a schedule II opioid drug., 164.3, cm, 01/03/21 14:30:00 ED... Start Date: 01/03/21 Stop Date: 04/03/21 Status: Ordered Keflex monohydrate 500 mg oral capsule 1 capsule = 500 mg, By Mouth, Every 12 hours, for 7 days, # 14 capsule, 0 Refills, Acute 05/20/21 11:12:00 EDT, 05/13/21 11:12:00 EDT, Capsule, [facility] [phone], Partialfill upon patient request if the prescription is fo... Start Date: 05/13/21 Stop Date: 05/20/21 Status: Ordered lisinopril 40 mg oral tablet 1 tablet, By Mouth, Daily, # 90 tablet, 4 Refills, [facility], 164.3, cm, 03/08/21 12:48:00 EDT, Height, 58.9, kg, 01/26/21 13:00:00 EDT, Dry Weight Start Date: 03/28/21 Status: Ordered montelukast 10 mg oral tablet 1, tablet, By Mouth, Daily, # 90 tablet, Refills 0, Route to Pharmacy Electronically, [facility], 164.3, cm, 03/08/21 12:48:00 EDT, Height, 58.9, kg, 01/26/21 13:00:00 EDT, Dry Weight Start Date: 03/28/21 Status: Ordered omeprazole 40 mg oral enteric coated capsule 1 capsule = 40 mg, By Mouth, Daily, # 90 capsule, 2 Refills, Maintenance, 01/26/21 14:22:00 EDT, ECCapsule, [place], [place] - [id number], Partial fill upon patient request if the prescription is for a schedule II opioid drug., 164.3... Start Date: 01/26/21 Status: Ordered omeprazole 40 mg oral enteric coated capsule 1 capsule = 40 mg, By Mouth, Daily, # 90 capsule, 3 Refills, Maintenance, 01/26/21 14:57:00 EDT, Shalini, [facility]/pharmacy #[id number], Partial [...] tablet, 0 Refills, Maintenance, 04/04/21 13:21:00 EDT, Tablet,[facility] [id number], Par... Start Date: 04/04/21 Status: Ordered propranolol 20 mg oral tablet 1, tablet, By Mouth, 3 times a day, # 90 tablet, Refills 5, Tot. Refills 5, Maintenance, 03/15/21 10:28:00 EDT, Route to Pharmacy Electronically, [facility] [id number], Please cancel rx done under Barbara Padilla MD., 164.3... Start Date: 03/15/21 Status: Ordered propylthiouracil 50 mg oral tablet 2 tablet = 100 mg, By Mouth, Every 8 hours, # 180 tablet, 6 Refills, Maintenance, 01/10/21 10:34:00EDT, Tablet, [facility]/pharmacy #[id number], [...] Acute05/24/21 23:59:00 EDT, 05/13/21 11:13:00 EDT, Capsule, [facility] [phone], Partial fill upon patient request if the [...] Range]: 1 2 3 Height 168 cm (05/13/21 12:08 PM) 168 cm (05/13/21 10:48 AM) 168 cm (05/13/21 7:47 AM) Oxygen Saturation [94-100 %] 98 % (05/13/21 12:08 PM) 100 % (05/13/21 10:48 AM) 99 % (05/13/21 7:47 AM) Pulse Rate [55-90 bpm] 102 bpm *H* (05/13/21 12:08 PM) 115 bpm *H* (05/13/21 10:48 AM) 103 bpm *H* (05/13/21 7:47 AM) Blood Pressure [90-138/55-84 mm Hg] 136/74mm Hg (05/13/21 12:08 PM) 133/85mm Hg (05/13/21 10:48 AM) 114/64mm Hg (05/13/21 7:47 AM) Respiratory Rate [16-30 br/min] 20 br/min (05/13/21 12:08 PM) 20 br/min (05/13/21 10:48 AM) 24 br/min (05/13/21 7:47 AM) Temperature [96.8-100.4 DegF] 98.3 DegF (05/13/21 7:47 AM) 98.1 DegF (05/13/21 5:41 AM) 98.4 DegF (05/13/21 1:29 AM) Mode of Delivery (Oxygen) Room air (05/13/21 12:08 PM) Room air (05/13/21 10:48 AM) Room air (05/13/21 7:47 AM) Blood pressure sites Arm, right (05/13/21 12:08 PM) Arm, right (05/13/21 10:48 AM) Arm, right (05/13/21 7:47 AM) Temperature Route Oral (05/13/21 7:47 AM) Oral (05/13/21 5:41 AM) Oral (05/13/21 1:29 AM) Social History Social History Type Response Tobacco Use: 4 or less cigar ettes(less than 1/4 pack)/day in last 30 days. Other: 3-3 packs a day for about 30-40. Now 3-4 day. Sex
--- OUTSIDE RECORDS SUMMARY | 2024-04-01 01:24 | XMS_ITS | Continuity of Care Document ---
Author Organization [facility] Adult Address [address] [place] [address]- Care Team Providers Care Secretary Name Role Phone Ivanna Keller NP Primary Care Physician [place] [facility] [place]s): 01/06/21 - 01/13/21 [facility] [address] [place] [address]- Encounter Diagnosis Joint pain(Discharge Diagnosis) - 01/06/21 Frequent falls(Discharge Diagnosis) - 01/06/21 Weakness(Discharge Diagnosis) - 01/06/21 Attending Physician: Ivanna Keller NP Allergies, Adverse Reactions, Alerts No Known Medication Allergies Medications amLODIPine 10 mg oral tablet 1 tablet = 10 mg, By Mouth, Daily, # 90 tablet, 1 Refills, Maintenance, 07/21/20 9:21:00 EST, Tablet, [place], [place] - [id number], Partial fill upon patient request if the [...] 01/17/21 9:19:00 EDT, 07/21/20 9:19:00 EST, Patch, [place], [place] - [phone], Partial fill upon patient request if the prescri... Start Date: 07/21/20 Stop Date: 01/17/21 Status: Ordered cloNIDine 0.1 mg/24 hr transdermal film, extended release 1 patch, Topically, Daily, CHANGE DAILY ROTATE PLACEMENT, # 90 patch, 1 Refills, Maintenance, 01/17/21 9:19:00 EDT, Patch, [place], [place] - [phone], Partial fill upon patient request if the prescription is for a schedule II opioi... Start Date: 01/17/21 Stop Date: 07/16/21 Status: Ordered Colace sodium 100 mg oral capsule 100 mg, 1, capsule, By Mouth, 2 times a day, # 180 capsule, Refills 0, Tot. Refills 0, Maintenance,10/28/20 15:36:00 EDT, Route to Pharmacy Electronically, [facility]/pharmacy #[id number], Partial fill upon patient request if the prescription is for a schedule II... Start Date: 10/28/20 Stop Date: 01/26/21 Status: Ordered duloxetine 60 mg oral enteric coated capsule 1 capsule = 60 mg, By Mouth, Daily, # 30 capsule, 1 Refills, Maintenance, 11/23/20 14:24:00 EDT, ECCapsule, [place], [place] - [phone], Partial fill upon patient request if the prescription is for a schedule II opioid drug., 164.3... Start Date: 11/23/20 Stop Date: 01/22/21 Status: Ordered famotidine 20 mg oral tablet 20 mg, 1, tablet, By Mouth, Daily at bedtime, for 21 days, # 21 tablet, Refills 0, Tot. Refills 0, Acute 01/16/21 14:49:00 EDT, 12/26/20 14:49:00 EDT, Route to Pharmacy Electronically, [facility], Partial fill upon patient request if the... Start Date: 12/26/20 Stop Date: 01/16/21 Status: Ordered famotidine 40 mg oral tablet 1 tablet = 40 mg, By Mouth, 2 times a day, # 60 tablet, 2 Refills, Maintenance, 01/03/21 15:00:00 EDT, Tablet, [facility]/pharmacy #[id number], Partial fill [...] 1 Refills, Maintenance, 06/27/20 9:26:00 EST, Solution, [facility] [place] [place] - [id number], Partial fill upon patient request, 164.3, cm, 06/15/20 14:33:00 EST,... Start Date: 06/27/20 Status: Ordered propranolol 20 mg oral tablet 20 mg, 1, tablet, By Mouth, 3 times a day, # 90 tablet, Refills 0, Tot. Refills 0, Maintenance, 12/07/20 13:13:00 EDT, Route to Pharmacy Electronically, [id number] 3, Partial fill upon patient request if the prescription is for a schedule... Start Date: 12/07/20 Status: Ordered propylthiouracil 50 mg oral tablet 2 tablet = 100 mg, By Mouth, Every 8 hours, # 180 tablet, 6 Refills, Maintenance, 01/10/21 10:34:00EDT, Tablet, [facility]/pharmacy #[id number], Partial fill upon patient request if the [...] Dates Health Status Cl inical Service Informant Joint pain Discharge Diagnosis 01/06/21 Frequent falls Discharge Diagnosis 01/06/21 Weakness Discharge Diagnosis 01/06/21 Vital Signs Most recent to oldest [Reference Range]: 1 Height 164.3 cm (01/06/21 1:12 PM) Weight 59 kg (01/06/21 1:12 PM) Body Mass Index [18.5-24.99] 21.86 (01/06/21 1:12 PM) Weight Obtained Via Patient/family state d (01/06/21 1:12 PM) Social History Social History Type Response Tobacco Use: 4 or less cigar ettes(less than 1/4 pack)/day in last 30 days. Other: 3-3 packs a day for about 30-40. Now 3-4 day. Sex
--- OUTSIDE RECORDS SUMMARY | 2024-04-01 01:24 | XMS_ITS | Continuity of Care Document ---
Author Organization [facility] Address [address] [place] [address]- Care Team Providers Care Registered Representative Name Role Phone Ivanna Keller NP Primary Care Physician Encounter [facility] [place] Date(s): 12/12/20 - 01/11/21 [facility] [address] [place] [id number] Allergies, Adverse Reactions, Alerts No Known Medication Allergies Medications amLODIPine 10 mg oral tablet 1 tablet = 10 mg, By Mouth, Daily, # 90 tablet, 1 Refills, Maintenance, 07/21/20 9:21:00 EST, Tablet, [place], [place] - [id number], Partial fill upon patient request if the [...] 01/17/21 9:19:00 EDT, 07/21/20 9:19:00 EST, Patch, [place], [place] - [id number], Partial fill upon patient request if the prescri... Start Date: 07/21/20 Stop Date: 01/17/21 Status: Ordered cloNIDine 0.1 mg/24 hr transdermal film, extended release 1 patch, Topically, Daily, CHANGE DAILY ROTATE PLACEMENT, # 90 patch, 1 Refills, Maintenance, 01/17/21 9:19:00 EDT, Patch, [place], [place] - [id number], Partial fill upon patient request if the prescription is for a schedule II opioi... Start Date: 01/17/21 Stop Date: 07/16/21 Status: Ordered Colace sodium 100 mg oral capsule 100 mg, 1, capsule, By Mouth, 2 times a day, # 180 capsule, Refills 0, Tot. Refills 0, Maintenance,10/28/20 15:36:00 EDT, [id number], Partial fill upon patient request if the prescription is for a schedule II... Start Date: 10/28/20 Stop Date: 01/26/21 Status: Ordered duloxetine 60 mg oral enteric coated capsule 1 capsule = 60 mg, By Mouth, Daily, # 30 capsule, 1 Refills, Maintenance, 11/23/20 14:24:00 EDT, ECCapsule, [place], [place] - [phone], Partial fill upon patient request if the prescription is for a schedule II opioid drug., 164.3... Start Date: 11/23/20 Stop Date: 01/22/21 Status: Ordered famotidine 20 mg oral tablet 20 mg, 1, tablet, By Mouth, Daily at bedtime, for 21 days, # 21 tablet, Refills 0, Tot. Refills 0, Acute 01/16/21 14:49:00 EDT, 12/26/20 14:49:00 EDT, Route to Pharmacy Electronically, [facility] [place] [facility], Partial fill upon patient request if the... Start Date: 12/26/20 Stop Date: 01/16/21 Status: Ordered famotidine 40 mg oral tablet 1 tablet = 40 mg, By Mouth, 2 times a day, # 60 tablet, 2 Refills, Maintenance, 01/03/21 15:00:00 EDT, Tablet, [facility]/pharmacy #[id number], Partial fill upon patient [...] 1 Refills, Maintenance, 06/27/20 9:26:00 EST, Solution, [facility] [place], [place] - [id number], Partial fill upon patient request, 164.3, cm, 06/15/20 14:33:00 EST,... Start Date: 06/27/20 Status: Ordered propranolol 20 mg oral tablet 20 mg, 1, tablet, By Mouth, 3 times a day, # 90 tablet, Refills 0, Tot. Refills 0, Maintenance, 12/07/20 13:13:00 EDT, Route to Pharmacy Electronically, [facility] [place] [facility], Partial fill upon patient request if the prescription is for a schedule... Start Date: 12/07/20 Status: Ordered propylthiouracil 50 mg oral tablet 2 tablet = 100 mg, By Mouth, Every 8 hours, # 180 tablet, 6 Refills, Maintenance, 01/10/21 10:34:00EDT, Tablet, [facility]/pharmacy #[id number], Partial fill upon patient [...]
--- OUTSIDE RECORDS SUMMARY | 2024-04-01 01:24 | XMS_ITS | Continuity of Care Document ---
Author Organization [facility] Address [address] [place] [address]- Care Team Providers Care Assistant Engineer Name Role Phone Ivanna Keller NP Primary Care Physician [place] [facility] [place] 11/16[place]20 - 12/16/20 [facility] [address] [place] [address]- Allergies, Adverse Reactions, Alerts No Known Medication Allergies Medications amLODIPine 10 mg oral tablet 1 tablet = 10 mg, By Mouth, Daily, # 90 tablet, 1 Refills, Maintenance, 07/21/20 9:21:00 EST, Tablet, [place], [place] - [phone], Partial fill upon patient request if the [...] 1 Refills, Maintenance, 07/21/20 9:19:00 EST, Patch, [place], [place] - [id number], Partial fill upon patient request if the prescription is for a schedule II opioi... Start Date: 07/21/20 Stop Date: 01/17/21 Status: Ordered Colace sodium 100 mg oral capsule 100 mg, 1, capsule, By Mouth, 2 times a day, # 180 capsule, Refills 0, Tot. Refills 0, Maintenance,10/28/20 15:36:00 EDT, Route to Pharmacy Electronically, [facility]/pharmacy #[id number], Partial fill upon patient request if the prescription is for a schedule II... Start Date: 10/28/20 Stop Date: 01/26/21 Status: Ordered duloxetine 60 mg oral enteric coated capsule 1 capsule = 60 mg, By Mouth, Daily, # 30 capsule, 1 Refills, Maintenance, 11/23/20 14:24:00 EDT, ECCapsule, [facility] [phone], Partial fill upon patient request if the [...] 12/07/20 13:13:00 EDT, Route to Pharmacy Electronically, [facility] 3, Partial fill upon patient request if the prescription is for a schedule... Start Date: 12/07/20 Status: Ordered Milk of Magnesia 8% oral suspension 30 mL = 2.4 Gm, By Mouth, Daily at bedtime, PRN for constipation, for 5 days, # 360 mL, 0 Refills, Acute 12/19/20 10:01:00 EDT, 12/14/20 10:01:00 EDT, Suspension, [place], [place] - [id number], Partial fill upon patient request if the... Start Date: 12/14/20 Stop Date: 12/19/20 Status: Ordered Prolia 60 mg/mL subcutaneous solution See Instructions, 1 mL Subcutaneous Injection Every 6 months 3 days, # 1 each, 1 Refills, Maintenance, 06/27/20 9:26:00 EST, Solution, [facility] [id number], Partial fill upon patient request, 164.3, cm, 06/15/20 14:33:00 EST,... Start Date: 06/27/20 Status: Ordered propranolol 20 mg oral tablet 20 mg, 1, tablet, By Mouth, 3 times a day, # 90 tablet, Refills 0, Tot. Refills 0, Maintenance, 12/07/20 13:13:00 EDT, Route to Pharmacy Electronically, [facility], Partial fill upon patient [...]
--- OUTSIDE RECORDS SUMMARY | 2024-04-01 01:24 | XMS_ITS | Continuity of Care Document ---
Author Organization [facility] ter Address [address] [place] [address]- Care Team Providers Care Bottle Carrier Name Role Phone Ivanna Keller NP Primary Care Physician [phone] Encounter [facility] [place] Date(s): 07/05/21 - 07/05/[address] [address]- Attending Physician: Chepe JIMENES, Bhavin Allergies, Adverse Reactions, Alerts No Known Medication [...] 01/17/21 9:19:00 EDT, Patch, [facility] [place], [place] - [id number], Partial fill upon patient request if the [...] 5 Refills, Maintenance, 01/22/21 14:24:00 EDT, ECCapsule, [place], [place] - [id number], Partial fill upon patient request if the prescription is for a schedule II opioid drug., 164.3... Start Date: 01/22/21 Stop Date: 07/21/21 Status: Ordered famotidine 40 mg oral tablet 1 tablet = 40 mg, By Mouth, 2 times a day, # 60 tablet, 2 Refills, Maintenance, 01/03/21 15:00:00 EDT, Tablet, [facility]/pharmacy #[id number], Partial fill upon patient request if the prescription is for a schedule II opioid drug., 164.3, cm, 01/03/21 14:30:00 ED... Start Date: 01/03/21 Stop Date: 04/03/21 Status: Ordered lisinopril 40 mg oral tablet 1 tablet, By Mouth, Daily, # 90 tablet, 4 Refills, [facility], 164.3, cm, 03/08/21 12:48:00 EDT, Height, 58.9, kg, 01/26/21 13:00:00 EDT, Dry Weight Start Date: 03/28/21 Status: Ordered montelukast 10 mg oral tablet 1, tablet, By Mouth, Daily, # 90 tablet, Refills 1, Route to Pharmacy Electronically, [facility], 168, cm, 05/31/21 13:35:00 EDT, Height, 58.9, kg, 01/26/21 13:00:00 EDT, Dry Weight Start Date: 06/16/21 Status: Ordered omeprazole 40 mg oral enteric coated capsule 1 capsule = 40 mg, By Mouth, Daily, # 90 capsule, 2 Refills, Maintenance, 01/26/21 14:22:00 EDT, ECCapsule, [place], [place] - [id number], Partial fill upon patient request if the prescription is for a schedule II opioid drug., 164.3... Start Date: 01/26/21 Status: Ordered omeprazole 40 mg oral enteric coated capsule 1 capsule = 40 mg, By Mouth, Daily, # 90 capsule, 3 Refills, Maintenance, 01/26/21 14:57:00 EDT, Shalini, [facility]/pharmacy #[id number], Partial fill upon patient request if the prescription is for a schedule II opioid drug., 164.3, cm, 01/06/21 13:12:00 EDT,... Start Date: 01/26/21 Status: Ordered propranolol 20 mg oral tablet 1, tablet, By Mouth, 3 times a day, # 90 tablet, Refills 5, Tot. Refills 5, Maintenance, 03/15/21 10:28:00 EDT, Route to Pharmacy Electronically, [facility] [id number], Please cancel rx done under Barbara Padilla MD., 164.3... Start Date: 03/15/21 Status: Ordered spironolactone 25 mg oral tablet 25 mg, 1, tablet, By Mouth, Daily, # 90 tablet, Refills 0, Tot. Refills 0, Maintenance, 06/21/21 10:23:00 EST, Route to Pharmacy Electronically, [place], [place] - [id number], Partial fill upon patient request if the [...]
--- OUTSIDE RECORDS SUMMARY | 2024-04-01 01:24 | XMS_ITS | Continuity of Care Document ---
Author Organization [facility] Address [address] [place] [address]- Care Team Providers Care Car Sales Representative Name Role Phone Ivanna Keller NP Primary Care Physician Encounter [facility] [place] Date(s): 05/11/21 - 06/10/21 [facility] [address] [place] [id number] Allergies, Adverse Reactions, Alerts No Known Medication [...] 13:22:00 EDT, REC Powder, [facility] [place], [place] - [id number], Partial fill upon patient request if the prescription is for a schedule II opioid drug., 164.3, cm,... Start Date: 03/08/21 Status: Ordered cloNIDine 0.1 mg/24 hr transdermal film, extended release 1 patch, Topically, Daily, CHANGE DAILY ROTATE PLACEMENT, # 90 patch, 1 Refills, Maintenance, 01/17/21 9:19:00 EDT, Patch, [place], [place] - [id number], Partial fill upon patient request if the [...] 5 Refills, Maintenance, 01/22/21 14:24:00 EDT, ECCapsule, [place], [place] - [id number], Partial fill upon patient request if the prescription is for a schedule II opioid drug., 164.3... Start Date: 01/22/21 Stop Date: 07/21/21 Status: Ordered famotidine 40 mg oral tablet 1 tablet = 40 mg, By Mouth, 2 times a day, # 60 tablet, 2 Refills, Maintenance, 01/03/21 15:00:00 EDT, Tablet, [facility]/pharmacy #[id number], Partial fill upon patient request if the prescription is for a schedule II opioid drug., 164.3, cm, 01/03/21 14:30:00 ED... Start Date: 01/03/21 Stop Date: 04/03/21 Status: Ordered lisinopril 40 mg oral tablet 1 tablet, By Mouth, Daily, # 90 tablet, 4 Refills, [facility], 164.3, cm, 03/08/21 12:48:00 EDT, Height, 58.9, kg, 01/26/21 13:00:00 EDT, Dry Weight Start Date: 03/28/21 Status: Ordered montelukast 10 mg oral tablet 1, tablet, By Mouth, Daily, # 90 tablet, Refills 0, Route to Pharmacy Electronically, [facility], 164.3, cm, 03/08/21 12:48:00 EDT, Height, 58.9, kg, 01/26/21 13:00:00 EDT, Dry Weight Start Date: 03/28/21 Status: Ordered omeprazole 40 mg oral enteric coated capsule 1 capsule = 40 mg, By Mouth, Daily, # 90 capsule, 2 Refills, Maintenance, 01/26/21 14:22:00 EDT, ECCapsule, [place], [place] - [id number], Partial fill upon patient request if the prescription is for a schedule II opioid drug., 164.3... Start Date: 01/26/21 Status: Ordered omeprazole 40 mg oral enteric coated capsule 1 capsule = 40 mg, By Mouth, Daily, # 90 capsule, 3 Refills, Maintenance, 01/26/21 14:57:00 EDT, ECCapsule, [facility]/pharmacy #[id number], Partial fill upon patient [...] tablet, 0 Refills, Maintenance, 04/04/21 13:21:00 EDT, Tablet,[place], [place] - [id number], Par... Start Date: 04/04/21 Status: Ordered propranolol 20 mg oral tablet 1, tablet, By Mouth, 3 times a day, # 90 tablet, Refills 5, Tot. Refills 5, Maintenance, 03/15/21 10:28:00 EDT, Route to Pharmacy Electronically, [facility] [id number], Please cancel rx done under Barbara Padilla MD., 164.3... Start Date: 03/15/21 Status: Ordered propylthiouracil 50 mg oral tablet 2 tablet = 100 mg, By Mouth, Every 8 hours, # 180 tablet, 6 Refills, Maintenance, 01/10/21 10:34:00EDT, Tablet, [facility]/pharmacy #[id number], Partial fill upon patient request if the prescription is for a schedule II opioid drug., 164.3, cm, 01/06/21 13:12:00... Start Date: 01/10/21 Stop Date: 08/08/21 Status: Ordered spironolactone 25 mg oral tablet 25 mg, 1, tablet, By Mouth, Daily, # 30 tablet, Refills 0, Tot. Refills 0, Maintenance, 05/31/21 13:38:00 EDT, Route to Pharmacy Electronically, [place], [place] - [id number], Partial fill upon patient request if the [...]
--- OUTSIDE RECORDS SUMMARY | 2024-04-01 01:24 | XMS_ITS | Continuity of Care Document ---
Author Organization [facility] Adult Address [address] [place] [address]- Care Team Providers Care Decorator Hand Name Role Phone Ivanna Keller NP Primary Care Physician [phone] [place] [facility] [place] [id number] Date(s): 06/15/20 - 07/15/20 [facility] [address] [place] [address]- Attending Physician: Cydney Murry Admitting Physician: AdmCydney langston Referring Physician: Admtr ArPao Allergies, Adverse Reactions, Alerts No Known Medication Allergies Medications amLODIPine 10 mg oral tablet 0 Refills, Maintenance, 06/15/20 15:28:00 EST Start Date: 06/15/20 Status: Ordered Breo Ellipta 100 mcg-25 mcg/inh inhalation powder 0 Refills, Maintenance, 06/15/20 15:28:00 EST Start Date: 06/15/20 Status: Ordered calcium-vitamin D 600 mg-400 intl units oral tablet 0 Refills, Maintenance, 06/15/20 15:28:00 EST Start Date: 06/15/20 Status: Ordered cloNIDine 0.1 mg/24 hr transdermal film, extended release 0 Refills, Maintenance, 06/15/20 15:28:00 EST Start Date: 06/15/20 Status: Ordered duloxetine 20 mg oral enteric [...] 9:26:00 EST, Solution, [facility] - [place], [place] - [id number], Partial fill upon patient request, 164.3, cm, [...]
--- OUTSIDE RECORDS SUMMARY | 2024-04-01 01:24 | XMS_ITS | Continuity of Care Document ---
Author Organization [facility] Address [address] [place] [address]- Care Team Providers Care Food Storeroom Clerk Name Role Phone Ivanna Keller NP Primary Care Physician [phone] [facility] [place] Date(s): 01/26/22 - 02/25/22 [facility] [address] [place] [id number] Allergies, Adverse Reactions, Alerts No Known Medication Allergies Medications Breo Ellipta 100 mcg-25 mcg/inh inhalation powder 1 puffs, Inhalation, Daily, # 60 Unknown, 8 Refills, [facility], 270, INHALE 1 PUFF BY MOUTH INTO THE lungs DAILY, 170, cm, 07/20/21 8:17:00 EST, Height, 66, kg, 07/19/21 13:21:00 EST, Dry Weight Start Date: 09/20/21 Status: Ordered calcium-vitamin D 600 mg-400 intl units oral tablet 1 tablet, By Mouth, 2 times a day, # 60 tablet, 11 Refills, Maintenance, 03/03/21 13:28:00 EDT, [facility], 30, TAKE ONE TABLET BY MOUTH two (2) times a day, 164.3, cm, 01/06/21 13:12:00 EDT, Height, 58.9, kg, 01/26/21 13:00:00 EDT, Dry Weight Start Date: 03/03/21 Status: Ordered cloNIDine 0.1 mg/24 hr transdermal film, extended release 1 patch, Topically, Daily, CHANGE DAILY ROTATE PLACEMENT, # 90 patch, 1 Refills, Maintenance, 01/17/21 9:19:00 EDT, Patch, [facility] - [place], [place] - [id number], Partial fill upon patient request if the [...] 5 Refills, Maintenance, 01/22/21 14:24:00 EDT, ECCapsule, [place], [place] - [id number], Partial fill upon patient request if the prescription is for a schedule II opioid drug., 164.3... Start Date: 01/22/21 Stop Date: 07/21/21 Status: Ordered famotidine 40 mg oral tablet 1 tablet = 40 mg, By Mouth, 2 times a day, # 60 tablet, 2 Refills, Maintenance, 01/03/21 15:00:00 EDT, Tablet, [facility]/pharmacy #[id number], Partial fill upon patient request if the prescription is for a schedule II opioid drug., 164.3, cm, 01/03/21 14:30:00 ED... Start Date: 01/03/21 Stop Date: 04/03/21 Status: Ordered ibuprofen 800 mg oral tablet 800 mg, 1, tablet, By Mouth, Daily, PRN, # 30 tablet, Refills 0, Tot. Refills 0, Maintenance, Pain , Moderate, 12/24/21 12:52:00 EDT, Route to Pharmacy Electronically, [place], [place] - [id number], Partial fill upon patient request i... Start Date: 12/24/21 Status: Ordered lisinopril 40 mg oral tablet 1 tablet, By Mouth, Daily, # 90 tablet, 4 Refills, [facility], 164.3, cm, 03/08/21 12:48:00 EDT, Height, 58.9, kg, 01/26/21 13:00:00 EDT, Dry Weight Start Date: 03/28/21 Status: Ordered montelukast 10 mg oral tablet 1, tablet, By Mouth, Daily, # 90 tablet, Refills 1, Tot. Refills 1, 12/25/21 19:23:00 EDT, Route toPharmacy Electronically, [facility] [id number], 170, cm, 12/18/21 12:55:00EDT, Height, 66, kg, 07/19/21 13:21:00 EST, Dry Weight Start Date: 12/25/21 Status: Ordered omeprazole 40 mg oral enteric coated capsule 1 capsule = 40 mg, By Mouth, Daily, # 90 capsule, 2 Refills, Maintenance, 01/26/21 14:22:00 EDT, ECCapsule, [facility] [id number], Partial fill upon patient request if the prescription is for a schedule II opioid drug., 164.3... Start Date: 01/26/21 Status: Ordered omeprazole 40 mg oral enteric coated capsule 1 capsule = 40 mg, By Mouth, Daily, # 90 capsule, 3 Refills, Maintenance, 01/26/21 14:57:00 EDT, ECCapsule, [facility]/pharmacy #[id number], Partial fill upon patient request if the prescription is for a schedule II opioid drug., 164.3, cm, 01/06/21 13:12:00 EDT,... Start Date: 01/26/21 Status: Ordered propranolol 20 mg oral tablet 1, tablet, By Mouth, 3 times a day, # 90 tablet, Refills 8, Route to Pharmacy Electronically, [facility], 170, cm, 07/20/21 8:17:00 EST, Height, 66, kg, 07/19/21 13:21:00 EST, Dry Weight Start Date: 09/20/21 Status: Ordered spironolactone 25 mg oral tablet 1, tablet, By Mouth, Daily, # 90 tablet, Refills 1, Tot. Refills 1, 12/25/21 19:23:00 EDT, Route toPharmacy Electronically, [facility] [id number], 170, cm, 12/18/21 12:55:00EDT, Height, 66, kg, [...]
--- OUTSIDE RECORDS SUMMARY | 2024-04-01 01:24 | XMS_ITS | Continuity of Care Document ---
Author Organization [facility] ter Address [address] [place] [address]- Care Team Providers Care Green Building Architect Name Role Phone Ivanna Keller NP Primary Care Physician Encounter [facility] [place] [place] Date(s): 12/26/20 - 12/26/[address] [address]- Discharge Disposition: A-D/C Home Attending Physician: Tani Nair DO Admitting Physician: Tani Nair DO Referring Physician: Not on Staff, Referring MD Allergies, Adverse Reactions, Alerts No Known Medication Allergies Medications amLODIPine 10 mg oral tablet 1 tablet = 10 mg, By Mouth, Daily, # 90 tablet, 1 Refills, Maintenance, 07/21/20 9:21:00 EST, Tablet, [place], [place] - [phone], Partial fill upon patient request if the [...] 01/17/21 9:19:00 EDT, 07/21/20 9:19:00 EST, Patch, [place], [place] - [phone], Partial fill upon patient request if the prescri... Start Date: 07/21/20 Stop Date: 01/17/21 Status: Ordered cloNIDine 0.1 mg/24 hr transdermal film, extended release 1 patch, Topically, Daily, CHANGE DAILY ROTATE PLACEMENT, # 90 patch, 1 Refills, Maintenance, 01/17/21 9:19:00 EDT, Patch, [place], [place] - [phone], Partial fill upon patient request if the prescription is for a schedule II opioi... Start Date: 01/17/21 Stop Date: 07/16/21 Status: Ordered Colace sodium 100 mg oral capsule 100 mg, 1, capsule, By Mouth, 2 times a day, # 180 capsule, Refills 0, Tot. Refills 0, Maintenance,10/28/20 15:36:00 EDT, [id number] Partial fill upon patient request if the prescription is for a schedule II... Start Date: 10/28/20 Stop Date: 01/26/21 Status: Ordered duloxetine 60 mg oral enteric coated capsule 1 capsule = 60 mg, By Mouth, Daily, # 30 capsule, 1 Refills, Maintenance, 11/23/20 14:24:00 EDT, ECCapsule, [place], [place] - [phone], Partial fill upon patient request if the prescription is for a schedule II opioid drug., 164.3... Start Date: 11/23/20 Stop Date: 01/22/21 Status: Ordered famotidine 20 mg oral tablet 20 mg, 1, tablet, By Mouth, Daily at bedtime, for 21 days, # 21 tablet, Refills 0, Tot. Refills 0, Acute 01/16/21 14:49:00 EDT, 12/26/20 14:49:00 EDT, Route to Pharmacy Electronically, [facility], Partial fill upon patient request if the... Start Date: 12/26/20 Stop Date: 01/16/21 Status: Ordered lisinopril 40 mg oral tablet 0 Refills, Maintenance, 06/15/20 15:28:00 EST Start Date: 06/15/20 Status: Ordered methimazole 10 mg oral tablet 20 mg, 2, tablet, By Mouth, 2 times a day, # 120 tablet, Refills 0, Tot. Refills 0, Maintenance, 12/07/20 13:13:00 EDT, Route to Pharmacy Electronically, [facility], Partial fill upon patient request if the prescription is for a schedule... Start Date: 12/07/20 Status: Ordered Prolia 60 mg/mL subcutaneous solution See Instructions, 1 mL Subcutaneous Injection Every 6 months 3 days, # 1 each, 1 Refills, Maintenance, 06/27/20 9:26:00 EST, Solution, [facility] [place], [place] - [phone], Partial fill upon patient request, 164.3, cm, 06/15/20 14:33:00 EST,... Start Date: 06/27/20 Status: Ordered propranolol 20 mg oral tablet 20 mg, 1, tablet, By Mouth, 3 times a day, # 90 tablet, Refills 0, Tot. Refills 0, Maintenance, 12/07/20 13:13:00 EDT, Route to Pharmacy Electronically, [facility], Partial fill upon patient [...] Exam Date Time Procedure Performing Provider Status 12/26/20 1:25 PM Chest 2 Views Frontal and Lat Laura Anderson; Auth (Verified) Notes: (Chest 2 Views Frontal and Lat) Reason For Exam: Shortness of Breath, Fever;Other: RESULT: Chest 2 Views Frontal and Lat Chest 2 Views Frontal and Lat Hx of Present Illness: Upper abdominal pain. Nausea vomiting. COMPARISON: 12/07/2020 FINDINGS: LINES AND TUBES: None. LUNGS AND PLEURA: Clear lungs. Normal pulmonary vascularity. No pleural effusion. No pneumothorax. HEART, MEDIASTINUM AND HAYDE: Heart is normal in size. Normal upper mediastinal and hilar contour. BONES AND SOFT TISSUES: No acute abnormality. IMPRESSION: No acute abnormality. WSN: [id number] Ordering Physician: Lyndsay Lerma Dictated By: Gualberto Holliday MD Dictated Date/Time: 12/26/20 2:07 pm Reviewed By: Gualberto Holliday MD Signed By: Gualberto Holliday MD Signed Date/Time: 12/26/20 2:07 pm Transcribed By: MARTHA Transcribed Date/Time: 12/26/20 2:04 pm Vital Signs Most recent to oldest [Reference Range]: 1 2 3 Oxygen Saturation [94-100 %] 99 % (12/26/20 12:15 PM) 100 % (12/26/20 10:08 AM) 100 % (12/26/20 9:42 AM) Pulse Rate [55-90 bpm] 68 bpm (12/26/20 12:15 PM) 70 bpm (12/26/20 10:08 AM) 72 bpm (12/26/20 9:42 AM) Blood Pressure [90-138/55-84 mm Hg] 135/71mm Hg (12/26/20 12:15 PM) 125/68mm Hg (12/26/20 10:08 AM) Respiratory Rate [16-30 br/min] 20 br/min (12/26/20 12:15 PM) 18 br/min (12/26/20 10:08 AM) Temperature [96.8-100.4 DegF] 98.2 DegF (12/26/20 12:15 PM) 98.1 DegF (12/26/20 10:08 AM) Mode of Delivery (Oxygen) Room air (12/26/20 12:15 PM) Room air (12/26/20 10:08 AM) Room air (12/26/20 9:42 AM) Temperature Route Oral (12/26/20 12:15 PM) Oral (12/26/20 10:08 AM) Social History Social History Type Response Tobacco Use: 4 or less cigar ettes(less than 1/4 pack)/day in last 30 days. Other: 3-3 packs a day for about 30-40. Now 3-4 day. Sex
--- OUTSIDE RECORDS SUMMARY | 2024-04-01 01:24 | XMS_ITS | Continuity of Care Document ---
Author Organization [facility] Adult Address [address] [place] [address]- Care Team Providers Care Cricket Coach Name Role Phone Ivanna Keller NP Primary Care Physician Encounter [facility] [place] Date(s): 10/28/20 - 11/04/20 [facility] [address] [place] [address]- Encounter Diagnosis Ear discomfort(Discharge Diagnosis) - 10/28/20 Constipation(Discharge Diagnosis) - 10/28/20 Abdominal discomfort(Discharge Diagnosis) - 10/28/20 GERD (gastroesophageal reflux disease)(Discharge Diagnosis) - 10/28/20 Attending Physician: Ivanna Keller NP Allergies, Adverse Reactions, Alerts No Known Medication Allergies Medications amLODIPine 10 mg oral tablet 1 tablet = 10 mg, By Mouth, Daily, # 90 tablet, 1 Refills, Maintenance, 07/21/20 9:21:00 EST, Tablet, [place], [place] - [phone], Partial fill upon patient request if the [...] 1 Refills, Maintenance, 07/21/20 9:19:00 EST, Patch, [place], [place] - [phone], Partial fill upon patient request if the prescription is for a schedule II opioi... Start Date: 07/21/20 Stop Date: 01/17/21 Status: Ordered Colace sodium 100 mg oral capsule 100 mg, 1, capsule, By Mouth, 2 times a day, # 180 capsule, Refills 0, Tot. Refills 0, Maintenance,10/28/20 15:36:00 EDT, Route to Pharmacy Electronically, [facility]/pharmacy #[id number], Partial fill upon patient request if the prescription is for a schedule II... Start Date: 10/28/20 Stop Date: 01/26/21 Status: Ordered dexamethasone 0.1% ophthalmic solution 1 drops, Ears, Both, 3 times a day, for 14 days, # 5 mL, 0 Refills, Acute 11/11/20 15:48:00 EDT, 10/28/20 15:48:00 EDT, [facility]/pharmacy #[id number], Partial fill upon patient request if the prescription is for a schedule II opioid drug., 1 drops Ears, Both 3 t... Start Date: 10/28/20 Stop Date: 11/11/20 Status: Ordered duloxetine 20 mg oral enteric coated capsule 1 capsule = 20 mg, By Mouth, Daily, # 90 capsule, 0 Refills, Maintenance, 09/30/20 11:20:00 EST, Capsule, [place], [place] - [phone], Partial fill upon patient request if the [...] Refills, Maintenance, 10/25/20 12:17:00 EDT, CR Tablet, [facility]/pharmacy #[id number], Partial fill upon patient request if the prescription is for a schedule II opioid drug., 164.3, cm, 08/29/20 8:40:00 EST, Height Start Date: 10/25/20 Status: Ordered Prolia 60 mg/mL subcutaneous solution See Instructions, 1 mL Subcutaneous Injection Every 6 months 3 days, # 1 each, 1 Refills, Maintenance, 06/27/20 9:26:00 EST, Solution, [facility] [place], [place] - [id number], Partial fill upon patient request, 164.3, cm, 06/15/20 14:33:00 EST,... Start Date: 06/27/20 Status: Ordered Senna 8.6 mg oral tablet 17.2 mg, 2, tablet, By Mouth, Daily at bedtime, PRN, for constipation > 3 days for 30 days, # 36tablet, Refills 0, Tot. Refills 0, Acute, as needed for constipation, 11/27/20 15:36:00 EDT, 10/28/20 15:36:00 EDT, Route to [facility]acy [facility], [facility]... Start Date: 10/28/20 Stop Date: 11/27/20 Status: Ordered Problem List Condition Effective Dates Status Health Status Inform ant Anxiety(Confirmed) Active Blindness(Confirmed) Active COPD (chronic obstructive pu lmonary disease)(Confirmed) Active Depression(Confirmed) Active HLD (hyperlipidemia)(Confirmed) Active HTN (hypertension)(Confirmed) Active Osteoporosis(Confirmed) Active Vitamin D deficiency(Confirmed) Active Diagnosis Diagnosis Type Effective Dates Health Status Clinical Service Informant Ear discomfort Discharge Diagnosis 10/28/20 Constipation Discharge Diagnosis 10/28/20 Abdominal discomfort Discharge Diagnosis 10/28/20 GERD (gastroesophageal reflux disease) Discharge Diagnosis 10/28/20 Vital Signs Most recent to oldest [Reference Range]: 1 Height 164.3 cm (10/28/20 2:20 PM) Weight 68.1 kg (10/28/20 2:20 PM) Body Mass Index [18.5-24.99] 25.23 *H* (10/28/20 2:20 PM) Weight Obtained Via Patient/family state d (10/28/20 2:20 PM) Social History Social History Type Response Tobacco Use: 4 or less cigar ettes(less than 1/4 pack)/day in last 30 days. Other: 3-3 packs a day for about 30-40. Now 3-4 day. Sex
--- OUTSIDE RECORDS SUMMARY | 2024-04-01 01:24 | XMS_ITS | Continuity of Care Document ---
Author Organization [facility] Adult Address [address] [place] [address]- Care Team Providers Care Train Electronic Technician Name Role Phone Ivanna Keller NP Primary Care Physician Encounter [facility] [place] Date(s): 01/12/21 - 02/11/21 [facility] Adult [address] [place] [address]- Allergies, Adverse Reactions, Alerts No Known Medication Allergies Medications amLODIPine 10 mg oral tablet 1 tablet = 10 mg, By Mouth, Daily, # 90 tablet, 1 Refills, Maintenance, 07/21/20 9:21:00 EST, Tablet, [facility] [phone], Partial fill upon patient request if the [...] 1 Refills, Maintenance, 01/17/21 9:19:00 EDT, Patch, [facility] [phone], Partial fill upon patient request if the prescription is for a schedule II opioi... Start Date: 01/17/21 Stop Date: 07/16/21 Status: Ordered duloxetine 60 mg oral enteric coated capsule 1 capsule = 60 mg, By Mouth, Daily, # 30 capsule, 5 Refills, Maintenance, 01/22/21 14:24:00 EDT, ECCapsule, [facility] [phone], Partial fill upon patient request if the prescription is for a schedule II opioid drug., 164.3... Start Date: 01/22/21 Stop Date: 07/21/21 Status: Ordered famotidine 40 mg oral tablet 1 tablet = 40 mg, By Mouth, 2 times a day, # 60 tablet, 2 Refills, Maintenance, 01/03/21 15:00:00 EDT, Tablet, [facility]/pharmacy #[id number], Partial fill upon patient request if [...] 2 Refills, Maintenance, 01/26/21 14:22:00 EDT, ECCapsule, [place], [place] - [phone], Partial fill upon patient request if the prescription is for a schedule II opioid drug., 164.3... Start Date: 01/26/21 Status: Ordered omeprazole 40 mg oral enteric coated capsule 1 capsule = 40 mg, By Mouth, Daily, # 90 capsule, 3 Refills, Maintenance, 01/26/21 14:57:00 EDT, [facility], [id number] Partial fill upon patient request if the prescription is for a schedule II opioid drug., 164.3, cm, 01/06/21 13:12:00 EDT,... Start Date: 01/26/21 Status: Ordered propranolol 20 mg oral tablet 20 mg, 1, tablet, By Mouth, 3 times a day, # 90 tablet, Refills 0, Tot. Refills 0, Maintenance, 02/10/21 14:49:00 EDT, Route to Pharmacy Electronically, [place], [place] - [id number], Partial fill upon patient request if the prescript... Start Date: 02/10/21 Stop Date: 03/12/21 Status: Ordered propylthiouracil 50 mg oral tablet 2 tablet = 100 mg, By Mouth, Every 8 hours, # 180 tablet, 6 Refills, Maintenance, 01/10/21 10:34:00EDT, Tablet, [facility]/pharmacy #[id number], Partial fill upon patient request if the [...]
--- OUTSIDE RECORDS SUMMARY | 2024-04-01 01:24 | XMS_ITS | Continuity of Care Document ---
Author Organization [facility] Adult Address [address] [place] [address]- Care Team Providers Care Warehouse Receiving Clerk Name Role Phone Ivanna Keller NP Primary Care Physician Encounter [facility] [place] Date(s): 01/06/21 - 02/05/21 [facility] Adult [address] [place] [address]- Attending Physician: Cydney Murry Admitting Physician: AdmCydney langston Referring Physician: Admtr, Cydney Allergies, Adverse Reactions, Alerts No Known Medication Allergies Medications amLODIPine 10 mg oral tablet 1 tablet = 10 mg, By Mouth, Daily, # 90 tablet, 1 Refills, Maintenance, 07/21/20 9:21:00 EST, Tablet, [place], [place] - [phone], Partial fill upon patient request if the [...] 1 Refills, Maintenance, 01/17/21 9:19:00 EDT, Patch, [place], [place] - [id number], Partial fill upon patient request if the prescription is for a schedule II opioi... Start Date: 01/17/21 Stop Date: 07/16/21 Status: Ordered duloxetine 60 mg oral enteric coated capsule 1 capsule = 60 mg, By Mouth, Daily, # 30 capsule, 5 Refills, Maintenance, 01/22/21 14:24:00 [place], [place] [phone], Partial fill upon patient request if the prescription is for a schedule II opioid drug., 164.3... Start Date: 01/22/21 Stop Date: 07/21/21 Status: Ordered famotidine 40 mg oral tablet 1 tablet = 40 mg, By Mouth, 2 times a day, # 60 tablet, 2 Refills, Maintenance, 01/03/21 15:00:00 EDT, Tablet, [facility]/pharmacy #[id number], Partial fill upon patient request if [...] capsule, 2 Refills, Maintenance, 01/26/21 14:22:00 [place], [place] - [phone], Partial fill upon patient request if the prescription is for a schedule II opioid drug., 164.3... Start Date: 01/26/21 Status: Ordered omeprazole 40 mg oral enteric coated capsule 1 capsule = 40 mg, By Mouth, Daily, # 90 capsule, 3 Refills, Maintenance, 01/26/21 14:57:00 EDT, [facility]ule, [id number] Partial fill upon patient request if the prescription is for a schedule II opioid drug., 164.3, cm, 01/06/21 13:12:00 EDT,... Start Date: 01/26/21 Status: Ordered propranolol 20 mg oral tablet 20 mg, 1, tablet, By Mouth, 3 times a day, # 90 tablet, Refills 0, Tot. Refills 0, Maintenance, 12/07/20 13:13:00 EDT, Route to Pharmacy Electronically, [facility], Partial fill upon patient request if the prescription is for a schedule... Start Date: 12/07/20 Status: Ordered propylthiouracil 50 mg oral tablet 2 tablet = 100 mg, By Mouth, Every 8 hours, # 180 tablet, 6 Refills, Maintenance, 01/10/21 10:34:00EDT, Tablet, [facility]/pharmacy #[id number], Partial fill upon patient request if the [...]
--- OUTSIDE RECORDS SUMMARY | 2024-04-01 01:24 | XMS_ITS | Continuity of Care Document ---
Author Organization [facility] Adult Address [address] [place] [address]- Care Team Providers Care Crate Opener Name Role Phone Krishna TRAN, Ivanna Primary Care Physician [phone] [id number] Date(s): 05/11/21 - 06/11/21 [facility] Adult [address] [place] [address]- Attending Physician: Alesia Hopkins MD Referring Physician: Raul TRAN, Kylah Sen Allergies, Adverse Reactions, Alerts No Known Medication [...] tablet, 11 Refills, Maintenance, 03/03/21 13:28:00 EDT, [facility], 30, TAKE ONE TABLET BY MOUTH two (2) times a day, 164.3, cm, 01/06/21 13:12:00 EDT, Height, 58.9, kg, 01/26/21 13:00:00 EDT, Dry Weight Start Date: 03/03/21 Status: Ordered cholestyramine 4 g/5.5 g oral powder for reconstitution = 4 Gm, By Mouth, 2 times a day, # 60 each, 3 Refills, Maintenance, 03/08/21 13:22:00 EDT, REC Powder, [facility] - [place], [place] - [id number], Partial fill upon patient request if the prescription is for a schedule II opioid drug., 164.3, cm,... Start Date: 03/08/21 Status: Ordered cloNIDine 0.1 mg/24 hr transdermal film, extended release 1 patch, Topically, Daily, CHANGE DAILY ROTATE PLACEMENT, # 90 patch, 1 Refills, Maintenance, 01/17/21 9:19:00 EDT, Patch, [place], [place] - [id number], Partial fill upon patient request if the [...] 5 Refills, Maintenance, 01/22/21 14:24:00 EDT, ECCapsule, [place], [place] - [id number], Partial fill upon patient request if the prescription is for a schedule II opioid drug., 164.3... Start Date: 01/22/21 Stop Date: 07/21/21 Status: Ordered famotidine 40 mg oral tablet 1 tablet = 40 mg, By Mouth, 2 times a day, # 60 tablet, 2 Refills, Maintenance, 01/03/21 15:00:00 EDT, Tablet, [facility]/pharmacy #[id number], Partial fill upon patient request if the prescription is for a schedule II opioid drug., 164.3, cm, 01/03/21 14:30:00 ED... Start Date: 01/03/21 Stop Date: 04/03/21 Status: Ordered lisinopril 40 mg oral tablet 1 tablet, By Mouth, Daily, # 90 tablet, 4 Refills, [facility], 164.3, cm, 03/08/21 12:48:00 EDT, Height, 58.9, kg, 01/26/21 13:00:00 EDT, Dry Weight Start Date: 03/28/21 Status: Ordered montelukast 10 mg oral tablet 1, tablet, By Mouth, Daily, # 90 tablet, Refills 0, Route to Pharmacy Electronically, [facility], 164.3, cm, 03/08/21 12:48:00 EDT, Height, 58.9, kg, 01/26/21 13:00:00 EDT, Dry Weight Start Date: 03/28/21 Status: Ordered omeprazole 40 mg oral enteric coated capsule 1 capsule = 40 mg, By Mouth, Daily, # 90 capsule, 2 Refills, Maintenance, 01/26/21 14:22:00 EDT, ECCapsule, [place], [place] - [id number], Partial fill upon patient request if the prescription is for a schedule II opioid drug., 164.3... Start Date: 01/26/21 Status: Ordered omeprazole 40 mg oral enteric coated capsule 1 capsule = 40 mg, By Mouth, Daily, # 90 capsule, 3 Refills, Maintenance, 01/26/21 14:57:00 [id number] Partial fill upon patient request [...] tablet, 0 Refills, Maintenance, 04/04/21 13:21:00 EDT, Tablet,[place], [place] - [phone], Par... Start Date: 04/04/21 Status: Ordered propranolol 20 mg oral tablet 1, tablet, By Mouth, 3 times a day, # 90 tablet, Refills 5, Tot. Refills 5, Maintenance, 03/15/21 10:28:00 EDT, Route to Pharmacy Electronically, [place], [place] - [phone], Please cancel rx done under Barbara Padilla MD., 164.3... Start Date: 03/15/21 Status: Ordered propylthiouracil 50 mg oral tablet 2 tablet = 100 mg, By Mouth, Every 8 hours, # 180 tablet, 6 Refills, Maintenance, 01/10/21 10:34:00EDT, Tablet, [facility]/pharmacy #[id number], Partial fill upon patient request if the prescription is for a schedule II opioid drug., 164.3, cm, 01/06/21 13:12:00... Start Date: 01/10/21 Stop Date: 08/08/21 Status: Ordered spironolactone 25 mg oral tablet 25 mg, 1, tablet, By Mouth, Daily, # 30 tablet, Refills 0, Tot. Refills 0, Maintenance, 05/31/21 13:38:00 EDT, Route to Pharmacy Electronically, [place], [place] - [id number], Partial fill upon patient request if the [...]
--- OUTSIDE RECORDS SUMMARY | 2024-04-01 01:24 | XMS_ITS | Continuity of Care Document ---
Author Organization [facility] Adult Address [address] [place] [address]- Care Team Providers Care Cross Cut Sawyer Name Role Phone Ivanna Keller NP Primary Care Physician [phone] Encounter [facility] [place] Date(s): 09/05/21 - 10/05/21 [facility] Adult [address] [place] [address]- Allergies, Adverse Reactions, Alerts No Known Medication Allergies Medications Breo Ellipta 100 mcg-25 mcg/inh inhalation powder 1 puffs, Inhalation, Daily, # 60 Unknown, 8 Refills, [facility], 270, INHALE 1 PUFF BY MOUTH INTO THE lungs DAILY, 170, cm, 07/20/21 8:17:00 EST, Height, 66, kg, 07/19/21 13:21:00 EST, Dry Weight Start Date: 09/20/21 Status: Ordered calcium-vitamin D 600 mg-400 intl units oral tablet 1 tablet, By Mouth, 2 times a day, # 60 tablet, 11 Refills, Maintenance, 03/03/21 13:28:00 EDT, [facility], 30, TAKE ONE TABLET BY MOUTH two (2) times a day, 164.3, cm, 01/06/21 13:12:00 EDT, Height, 58.9, kg, 01/26/21 13:00:00 EDT, Dry Weight Start Date: 03/03/21 Status: Ordered cloNIDine 0.1 mg/24 hr transdermal film, extended release 1 patch, Topically, Daily, CHANGE DAILY ROTATE PLACEMENT, # 90 patch, 1 Refills, Maintenance, 01/17/21 9:19:00 EDT, Patch, [facility] [place], [place] - [phone], Partial fill upon patient request if the [...] 5 Refills, Maintenance, 01/22/21 14:24:00 EDT, ECCapsule, [place], [place] - [id number], Partial fill upon patient request if the prescription is for a schedule II opioid drug., 164.3... Start Date: 01/22/21 Stop Date: 07/21/21 Status: Ordered famotidine 40 mg oral tablet 1 tablet = 40 mg, By Mouth, 2 times a day, # 60 tablet, 2 Refills, Maintenance, 01/03/21 15:00:00 EDT, Tablet, [facility]/pharmacy #[id number], Partial fill upon patient request if the prescription is for a schedule II opioid drug., 164.3, cm, 01/03/21 14:30:00 ED... Start Date: 01/03/21 Stop Date: 04/03/21 Status: Ordered lisinopril 40 mg oral tablet 1 tablet, By Mouth, Daily, # 90 tablet, 4 Refills, [facility], 164.3, cm, 03/08/21 12:48:00 EDT, Height, 58.9, kg, 01/26/21 13:00:00 EDT, Dry Weight Start Date: 03/28/21 Status: Ordered montelukast 10 mg oral tablet 1, tablet, By Mouth, Daily, # 90 tablet, Refills 1, Route to Pharmacy Electronically, [facility], 168, cm, 05/31/21 13:35:00 EDT, Height, 58.9, kg, 01/26/21 13:00:00 EDT, Dry Weight Start Date: 06/16/21 Status: Ordered omeprazole 40 mg oral enteric coated capsule 1 capsule = 40 mg, By Mouth, Daily, # 90 capsule, 2 Refills, Maintenance, 01/26/21 14:22:00 EDT, Shalini, [facility] [place], [place] - [phone], Partial fill upon patient request if the prescription is for a schedule II opioid drug., 164.3... Start Date: 01/26/21 Status: Ordered omeprazole 40 mg oral enteric coated capsule 1 capsule = 40 mg, By Mouth, Daily, # 90 capsule, 3 Refills, Maintenance, 01/26/21 14:57:00 [id number], Partial fill upon patient request [...] tablet, Refills 0, Route to Pharmacy Electronically, [facility], 170, cm, 07/20/21 8:17:00 EST, [...]
--- OUTSIDE RECORDS SUMMARY | 2024-04-01 01:24 | XMS_ITS | Continuity of Care Document ---
Author Organization [facility] Adult Address [address] [place] [address]- Care Team Providers Care Pattern Scratcher Name Role Phone Ivanna Keller NP Primary Care Physician [phone] Encounter [facility] Date(s): 03/07/21 - 04/06/21 [facility] Adult [address] [place] [address]- Allergies, Adverse Reactions, Alerts No Known Medication Allergies Medications amLODIPine 10 mg oral tablet 1 tablet, By Mouth, Daily, # 90 tablet, 1 Refills, Maintenance, 02/23/21 9:38:00 EDT, [facility], 164.3, cm, 01/06/21 13:12:00 EDT, Height, 58.9, kg, 01/26/21 13:00:00 EDT, Dry Weight Start Date: 02/23/21 Status: Ordered calcium-vitamin D 600 mg-400 intl units oral tablet 1 tablet, By Mouth, 2 times a day, # 60 tablet, 11 Refills, Maintenance, 03/03/21 13:28:00 EDT, [facility], 30, TAKE ONE TABLET BY MOUTH two (2) times a day, 164.3, cm, 01/06/21 13:12:00 EDT, Height, 58.9, kg, 01/26/21 13:00:00 EDT, Dry Weight Start Date: 03/03/21 Status: Ordered cholestyramine 4 g/5.5 g oral powder for reconstitution = 4 Gm, By Mouth, 2 times a day, # 60 each, 3 Refills, Maintenance, 03/08/21 13:22:00 EDT, REC Powder, [place], [place] - [id number], Partial fill upon patient request if the prescription is for a schedule II opioid drug., 164.3, cm,... Start Date: 03/08/21 Status: Ordered cloNIDine 0.1 mg/24 hr transdermal film, extended release 1 patch, Topically, Daily, CHANGE DAILY ROTATE PLACEMENT, # 90 patch, 1 Refills, Maintenance, 01/17/21 9:19:00 EDT, Patch, [place], [place] - [id number], Partial fill upon patient request if the prescription is for a schedule II opioi... Start Date: 01/17/21 Stop Date: 07/16/21 Status: Ordered duloxetine 60 mg oral enteric coated capsule 1 capsule = 60 mg, By Mouth, Daily, # 30 capsule, 5 Refills, Maintenance, 01/22/21 14:24:00 EDT, ECCapsule, [place], [place] - [id number], Partial fill upon patient request if the prescription is for a schedule II opioid drug., 164.3... Start Date: 01/22/21 Stop Date: 07/21/21 Status: Ordered famotidine 40 mg oral tablet 1 tablet = 40 mg, By Mouth, 2 times a day, # 60 tablet, 2 Refills, Maintenance, 01/03/21 15:00:00 EDT, Tablet, [facility]/pharmacy #[id number], Partial fill upon patient request if the prescription is for a schedule II opioid drug., 164.3, cm, 01/03/21 14:30:00 ED... Start Date: 01/03/21 Stop Date: 04/03/21 Status: Ordered lisinopril 40 mg oral tablet 1 tablet, By Mouth, Daily, # 90 tablet, 4 Refills, [facility], 164.3, cm, 03/08/21 12:48:00 EDT, Height, 58.9, kg, 01/26/21 13:00:00 EDT, Dry Weight Start Date: 03/28/21 Status: Ordered montelukast 10 mg oral tablet 1, tablet, By Mouth, Daily, # 90 tablet, Refills 0, Route to Pharmacy Electronically, [facility], 164.3, cm, 03/08/21 12:48:00 EDT, Height, 58.9, kg, 01/26/21 13:00:00 EDT, Dry Weight Start Date: 03/28/21 Status: Ordered omeprazole 40 mg oral enteric coated capsule 1 capsule = 40 mg, By Mouth, Daily, # 90 capsule, 2 Refills, Maintenance, 01/26/21 14:22:00 EDT, ECCapsule, [place], [place] - [id number], Partial fill upon patient request if the prescription is for a schedule II opioid drug., 164.3... Start Date: 01/26/21 Status: Ordered omeprazole 40 mg oral enteric coated capsule 1 capsule = 40 mg, By Mouth, Daily, # 90 capsule, 3 Refills, Maintenance, 01/26/21 14:57:00 EDT, ECCapsule, [facility]/pharmacy #[id number], Partial fill upon patient [...] tablet, 0 Refills, Maintenance, 04/04/21 13:21:00 EDT, Tablet,[place], [place] - [id number], Par... Start Date: 04/04/21 Status: Ordered propranolol 20 mg oral tablet 1, tablet, By Mouth, 3 times a day, # 90 tablet, Refills 5, Tot. Refills 5, Maintenance, 03/15/21 10:28:00 EDT, Route to Pharmacy Electronically, [place], [place] - [id number], Please cancel rx done under Barbara Padilla MD., 164.3... Start Date: 03/15/21 Status: Ordered propylthiouracil 50 mg oral tablet 2 tablet = 100 mg, By Mouth, Every 8 hours, # 180 tablet, 6 Refills, Maintenance, 01/10/21 10:34:00EDT, [id number] Partial fill upon patient request if [...]
--- OUTSIDE RECORDS SUMMARY | 2024-04-01 01:24 | XMS_ITS | Continuity of Care Document ---
Author Organization [facility] Adult Address [address] [place] [address]- Care Team Providers Care Logistics Coordinator Name Role Phone Ivanna Keller NP Primary Care Physician [phone] Encounter [facility] Date(s): 06/17/20 - 07/17/20 [facility] Adult [address] [place] [address]- Allergies, Adverse Reactions, Alerts No Known Medication [...] 06/27/20 9:26:00 EST, Solution, [facility] - [place], [place] - [id number], Partial fill upon patient request, 164.3, cm, [...]
--- OUTSIDE RECORDS SUMMARY | 2024-04-01 01:24 | XMS_ITS | Continuity of Care Document ---
Author Organization [facility] Adult Address [address] [place] [address]- Care Team Providers Care Grab Hooker Name Role Phone Ivanna Keller NP Primary Care Physician Encounter [facility] [place] Date(s): 05/19/21 - 06/18/[address] [facility] Adult [address] [place] [address]- Allergies, Adverse Reactions, Alerts No Known Medication [...] 01/17/21 9:19:00 EDT, Patch, [facility] - [place], [place] - [id number], Partial fill upon patient request if the [...] 5 Refills, Maintenance, 01/22/21 14:24:00 EDT, ECCapsule, [place], [place] - [id number], Partial fill upon patient request if the prescription is for a schedule II opioid drug., 164.3... Start Date: 01/22/21 Stop Date: 07/21/21 Status: Ordered famotidine 40 mg oral tablet 1 tablet = 40 mg, By Mouth, 2 times a day, # 60 tablet, 2 Refills, Maintenance, 01/03/21 15:00:00 EDT, Tablet, [facility]/pharmacy #[id number], Partial fill upon patient request if the prescription is for a schedule II opioid drug., 164.3, cm, 01/03/21 14:30:00 ED... Start Date: 01/03/21 Stop Date: 04/03/21 Status: Ordered lisinopril 40 mg oral tablet 1 tablet, By Mouth, Daily, # 90 tablet, 4 Refills, [facility], 164.3, cm, 03/08/21 12:48:00 EDT, Height, 58.9, kg, 01/26/21 13:00:00 EDT, Dry Weight Start Date: 03/28/21 Status: Ordered montelukast 10 mg oral tablet 1, tablet, By Mouth, Daily, # 90 tablet, Refills 1, Route to Pharmacy Electronically, [facility], 168, cm, 05/31/21 13:35:00 EDT, Height, 58.9, kg, 01/26/21 13:00:00 EDT, Dry Weight Start Date: 06/16/21 Status: Ordered omeprazole 40 mg oral enteric coated capsule 1 capsule = 40 mg, By Mouth, Daily, # 90 capsule, 2 Refills, Maintenance, 01/26/21 14:22:00 EDT, ECCapsule, [place], [place] - [id number], Partial fill upon patient request if the prescription is for a schedule II opioid drug., 164.3... Start Date: 01/26/21 Status: Ordered omeprazole 40 mg oral enteric coated capsule 1 capsule = 40 mg, By Mouth, Daily, # 90 capsule, 3 Refills, Maintenance, 01/26/21 14:57:00 EDT, ECCapsule, [facility]/pharmacy #[id number], Partial fill upon patient request if the prescription is for a schedule II opioid drug., 164.3, cm, 01/06/21 13:12:00 EDT,... Start Date: 01/26/21 Status: Ordered propranolol 20 mg oral tablet 1, tablet, By Mouth, 3 times a day, # 90 tablet, Refills 5, Tot. Refills 5, Maintenance, 03/15/21 10:28:00 EDT, Route to Pharmacy Electronically, [facility] [id number], Please cancel rx done under Barbara Padilla MD., 164.3... Start Date: 03/15/21 Status: Ordered spironolactone 25 mg oral tablet 25 mg, 1, tablet, By Mouth, Daily, # 30 tablet, Refills 0, Tot. Refills 0, Maintenance, 05/31/21 13:38:00 EDT, Route to Pharmacy Electronically, [facility] [id number], Partial fill upon patient request if the [...]
--- OUTSIDE RECORDS SUMMARY | 2024-04-01 01:24 | XMS_ITS | Continuity of Care Document ---
Author Organization [facility] Address [address] [place] [address]- Care Team Providers Care Inclusion Specialist Name Role Phone Ivanna Keller NP Primary Care Physician En[facility] Date(s): 12/23/20 - 01/22/21 [facility] [address] [place], [place] [address] Attending Physician: Cydney Murry Admitting Physician: AdmCydney langston Referring Physician: AdmtrCydney Allergies, Adverse Reactions, Alerts No Known Medication Allergies Medications amLODIPine 10 mg oral tablet 1 tablet = 10 mg, By Mouth, Daily, # 90 tablet, 1 Refills, Maintenance, 07/21/20 9:21:00 EST, Tablet, [place], [place] - [id number], Partial fill upon patient request if the [...] 1 Refills, Maintenance, 01/17/21 9:19:00 EDT, Patch, [place], [place] - [id number], Partial fill upon patient request if the prescription is for a schedule II opioi... Start Date: 01/17/21 Stop Date: 07/16/21 Status: Ordered Colace sodium 100 mg oral capsule 100 mg, 1, capsule, By Mouth, 2 times a day, # 180 capsule, Refills 0, Tot. Refills 0, Maintenance,10/28/20 15:36:00 EDT, [id number] Partial fill upon patient request if the prescription is for a schedule II... Start Date: 10/28/20 Stop Date: 01/26/21 Status: Ordered duloxetine 60 mg oral enteric coated capsule 1 capsule = 60 mg, By Mouth, Daily, # 30 capsule, 5 Refills, Maintenance, 01/22/21 14:24:00 EDT, ECCapsule, [place], [place] - [id number], Partial fill upon patient request if the prescription is for a schedule II opioid drug., 164.3... Start Date: 01/22/21 Stop Date: 07/21/21 Status: Ordered famotidine 40 mg oral tablet 1 tablet = 40 mg, By Mouth, 2 times a day, # 60 tablet, 2 Refills, Maintenance, 01/03/21 15:00:00 EDT, [facility], [id number] Partial fill upon patient [...] 1 Refills, Maintenance, 06/27/20 9:26:00 EST, Solution, [place], [place] - [id number], Partial fill upon patient request, 164.3, cm, 06/15/20 14:33:00 EST,... Start Date: 06/27/20 Status: Ordered propranolol 20 mg oral tablet 20 mg, 1, tablet, By Mouth, 3 times a day, # 90 tablet, Refills 0, Tot. Refills 0, Maintenance, 12/07/20 13:13:00 EDT, Route to Pharmacy Electronically, [facility] 3, Partial fill upon patient request if the prescription is for a schedule... Start Date: 12/07/20 Status: Ordered propylthiouracil 50 mg oral tablet 2 tablet = 100 mg, By Mouth, Every 8 hours, # 180 tablet, 6 Refills, Maintenance, 01/10/21 10:34:00EDT, Tablet, [facility]/pharmacy #[id number], Partial fill upon patient request if the [...]
--- OUTSIDE RECORDS SUMMARY | 2024-04-01 01:24 | XMS_ITS | Continuity of Care Document ---
Author Organization [facility] Address [address] [place] [address]- Care Team Providers Care Ccie Name Role Phone Not on Staff, PCP Primary Care Physician Unavail able Encounter [facility] Date(s): 06/27/22 - 07/27/22 [facility] [address] [place] [id number] Allergies, Adverse Reactions, Alerts No Known Medication Allergies Medications Breo Ellipta 100 mcg-25 mcg/inh inhalation powder 1 puffs, Inhalation, Daily, # 60 Unknown, 8 Refills, [facility], [facility], INHALE 1 PUFF BY MOUTH INTO THE lungs DAILY, 170, cm, 07/20/21 8:17:00 EST, Height, 66, kg, 07/19/21 13:21:00 EST, Dry Weight Start Date: 09/20/21 Status: Ordered calcium-vitamin D 600 mg-400 intl units oral tablet 1 tablet, By Mouth, 2 times a day, # 60 tablet, 2 Refills, Maintenance, 04/15/22 14:16:00 EDT, [place], [place] - [id number], 30, 1 tablet By Mouth 2 times a day, 170, cm, 01/18/22 12:36:00 EDT, Height, 66, kg, 07/19/21 13:21:00 EST,... Start Date: 04/15/22 Status: Ordered cloNIDine 0.1 mg/24 hr transdermal film, extended release 1 patch, Topically, Daily, CHANGE DAILY ROTATE PLACEMENT, # 90 patch, 1 Refills, Maintenance, 01/17/21 9:19:00 EDT, Patch, [place], [place] - [id number], Partial fill upon patient request if the [...] 5 Refills, Maintenance, 01/22/21 14:24:00 EDT, ECCapsule, [facility] [id number], Partial fill upon patient request if the [...] 12/24/21 12:52:00 EDT, Route to Pharmacy Electronically, [facility] [id number], Partial fill upon patient request i... Start Date: 12/24/21 Status: Ordered levothyroxine 0.088 mg oral tablet 1 tablet = 88 mcg, By Mouth, Daily, # 30 tablet, 6 Refills, Maintenance, 05/16/22 17:20:00 EDT, Tablet, [facility] [id number], Partial fill upon patient request if the prescription is for a schedule II opioid drug., 170, cm, 0... Start Date: 05/16/22 Status: Ordered lisinopril 40 mg oral tablet 1 tablet, By Mouth, Daily, # 90 tablet, 0 Refills, 04/15/22 14:16:00 EDT, [place], [place] - [id number], 170, cm, 01/18/22 12:36:00 EDT, Height, 66, kg, 07/19/21 13:21:00 EST, Dry Weight Start Date: 04/15/22 Status: Ordered montelukast 10 mg oral tablet 1, tablet, By Mouth, Daily, # 90 tablet, Refills 1, Tot. Refills 1, 04/15/22 14:16:00 EDT, Route toPharmacy Electronically, [place], [place] - [id number], 170, cm, 01/18/22 12:36:00EDT, Height, 66, kg, 07/19/21 13:21:00 EST, Dry Weight Start Date: 04/15/22 Status: Ordered omeprazole 40 mg oral enteric coated capsule 1 capsule = 40 mg, By Mouth, Daily, # 90 capsule, 2 Refills, Maintenance, 01/26/21 14:22:00 EDT, ECCapsule, [place], [place] - [id number], Partial fill upon patient request if the prescription is for a schedule II opioid drug., 164.3... Start Date: 01/26/21 Status: Ordered omeprazole 40 mg oral enteric coated capsule 1 capsule = 40 mg, By Mouth, Daily, # 90 capsule, 3 Refills, Maintenance, 01/26/21 14:57:00 EDT, ECCapslia, [facility]/pharmacy #[id number], Partial fill upon patient request if the prescription is for a schedule II opioid drug., 164.3, cm, 01/06/21 13:12:00 EDT,... Start Date: 01/26/21 Status: Ordered propranolol 20 mg oral tablet 1, tablet, By Mouth, 3 times a day, # 90 tablet, Refills 8, Route to Pharmacy Electronically, [facility], 170, cm, 07/20/21 8:17:00 EST, Height, 66, kg, 07/19/21 13:21:00 EST, Dry Weight Start Date: 09/20/21 Status: Ordered spironolactone 25 mg oral tablet 1, tablet, By Mouth, Daily, # 90 tablet, Refills 0, Tot. Refills 0, 04/15/22 14:16:00 EDT, Route toPharmacy Electronically, [facility] - [place], [place] - [id number], 170, cm, 01/18/22 12:36:00EDT, Height, 66, kg, [...] Team Personnel Name: Seun Christian RN Position: [facility] RN Member Role: Primary Care Nurse Name: Not on Staff, PCP Position: [facility] Physician (General Medicine) Member Role: PCP Care Team Related Persons Name: FLACO DALAL Address: [place] [address]
--- OUTSIDE RECORDS SUMMARY | 2024-04-01 01:24 | XMS_ITS | Continuity of Care Document ---
Author Organization [facility] Adult Address [address] [place] [address]- Care Team Providers Care Garment Sorter Name Role Phone Ivanna Keller NP Primary Care Physician [phone] En[place] [facility] Date(s): 01/25/21 - 02/24/21 [facility] Adult [address] [place] [address]- Allergies, Adverse Reactions, Alerts No Known Medication Allergies Medications amLODIPine 10 mg oral tablet 1 tablet, By Mouth, Daily, # 90 tablet, 1 Refills, Maintenance, 02/23/21 9:38:00 EDT, [facility], 164.3, cm, 01/06/21 13:12:00 EDT, [...] 1 Refills, Maintenance, 01/17/21 9:19:00 EDT, Patch, [place], [place] - [id number], Partial fill upon patient request if the prescription is for a schedule II opioi... Start Date: 01/17/21 Stop Date: 07/16/21 Status: Ordered duloxetine 60 mg oral enteric coated capsule 1 capsule = 60 mg, By Mouth, Daily, # 30 capsule, 5 Refills, Maintenance, 01/22/21 14:24:00 EDT, ECCapsule, [place], [place] - [id number], Partial fill upon patient request if the prescription is for a schedule II opioid drug., 164.3... Start Date: 01/22/21 Stop Date: 07/21/21 Status: Ordered famotidine 40 mg oral tablet 1 tablet = 40 mg, By Mouth, 2 times a day, # 60 tablet, 2 Refills, Maintenance, 01/03/21 15:00:00 EDT, Tablet, [facility]/pharmacy #[id number], Partial fill upon patient request if [...] 2 Refills, Maintenance, 01/26/21 14:22:00 EDT, ECCapsule, [place], [place] - [id number], Partial fill upon patient request if the prescription is for a schedule II opioid drug., 164.3... Start Date: 01/26/21 Status: Ordered omeprazole 40 mg oral enteric coated capsule 1 capsule = 40 mg, By Mouth, Daily, # 90 capsule, 3 Refills, Maintenance, 01/26/21 14:57:00 EDT, ECCapsule, [facility]/pharmacy #[id number], Partial fill upon patient request if the prescription is for a schedule II opioid drug., 164.3, cm, 01/06/21 13:12:00 EDT,... Start Date: 01/26/21 Status: Ordered propranolol 20 mg oral tablet 20 mg, 1, tablet, By Mouth, 3 times a day, # 90 tablet, Refills 0, Tot. Refills 0, Maintenance, 02/10/21 14:49:00 EDT, Route to Pharmacy Electronically, [place], [place] - [id number], Partial fill upon patient request if the prescript... Start Date: 02/10/21 Stop Date: 03/12/21 Status: Ordered propylthiouracil 50 mg oral tablet 2 tablet = 100 mg, By Mouth, Every 8 hours, # 180 tablet, 6 Refills, Maintenance, 01/10/21 10:34:00EDT, Tablet, [facility]/pharmacy #[id number], Partial fill upon patient request if [...]
--- OUTSIDE RECORDS SUMMARY | 2024-04-01 01:24 | XMS_ITS | Continuity of Care Document ---
Author Organization [facility] Adult Address [address] [place] [address]- Care Team Providers Care Principal Examiner Name Role Phone Ivanna Keller NP Primary Care Physician En[place] [facility] Date(s): 01/18/21 - 02/17/21 [facility] Adult [address] [place] [address]- Allergies, Adverse Reactions, Alerts No Known Medication Allergies Medications amLODIPine 10 mg oral tablet 1 tablet = 10 mg, By Mouth, Daily, # 90 tablet, 1 Refills, Maintenance, 07/21/20 9:21:00 EST, Tablet, [facility] [id number], Partial fill upon patient request if the [...] 1 Refills, Maintenance, 01/17/21 9:19:00 EDT, Patch, [facility] [id number], Partial fill upon patient request if the prescription is for a schedule II opioi... Start Date: 01/17/21 Stop Date: 07/16/21 Status: Ordered duloxetine 60 mg oral enteric coated capsule 1 capsule = 60 mg, By Mouth, Daily, # 30 capsule, 5 Refills, Maintenance, 01/22/21 14:24:00 EDT, ECCapsule, [facility] [id number], Partial fill upon patient request if the [...] 2 Refills, Maintenance, 01/26/21 14:22:00 EDT, ECCapsule, [place], [place] - [id number], Partial fill upon patient request if the prescription is for a schedule II opioid drug., 164.3... Start Date: 01/26/21 Status: Ordered omeprazole 40 mg oral enteric coated capsule 1 capsule = 40 mg, By Mouth, Daily, # 90 capsule, 3 Refills, Maintenance, 01/26/21 14:57:00 EDT, [facility]ule, [id number] Partial fill upon patient request if the prescription is for a schedule II opioid drug., 164.3, cm, 01/06/21 13:12:00 EDT,... Start Date: 01/26/21 Status: Ordered propranolol 20 mg oral tablet 20 mg, 1, tablet, By Mouth, 3 times a day, # 90 tablet, Refills 0, Tot. Refills 0, Maintenance, 02/10/21 14:49:00 EDT, Route to Pharmacy Electronically, [place], [place] - [id number], Partial fill upon patient request if the prescript... Start Date: 02/10/21 Stop Date: 03/12/21 Status: Ordered propylthiouracil 50 mg oral tablet 2 tablet = 100 mg, By Mouth, Every 8 hours, # 180 tablet, 6 Refills, Maintenance, 01/10/21 10:34:00EDT, Tablet, [facility]/pharmacy #[id number], Partial fill upon patient request if the [...]
--- OUTSIDE RECORDS SUMMARY | 2024-04-01 01:24 | XMS_ITS | Continuity of Care Document ---
Author Organization [facility] Address [address] [place] [address]- Care Team Providers Care Desktop Analyst Name Role Phone Ivanna Keller NP Primary Care Physician Encounter [facility] Date(s): 12/07/21 - 01/06/22 [facility] [address] [place] [id number] Attending Physician: Admivis, Cydney Admitting Physician: Admtr, Ar8 Referring Physician: Admtr, [...] 01/17/21 9:19:00 EDT, Patch, [facility] - [place], [place] - [id number], Partial fill upon patient request if the [...] 5 Refills, Maintenance, 01/22/21 14:24:00 EDT, ECCapsule, [facility], [place] - [id number], Partial fill upon patient request if the prescription is for a schedule II opioid drug., 164.3... Start Date: 01/22/21 Stop Date: 07/21/21 Status: Ordered famotidine 40 mg oral tablet 1 tablet = 40 mg, By Mouth, 2 times a day, # 60 tablet, 2 Refills, Maintenance, 01/03/21 15:00:00 EDT, Tablet, [facility]/pharmacy #[id number], Partial fill upon patient request if the prescription is for a schedule II opioid drug., 164.3, cm, 01/03/21 14:30:00 ED... Start Date: 01/03/21 Stop Date: 04/03/21 Status: Ordered ibuprofen 800 mg oral tablet 800 mg, 1, tablet, By Mouth, Daily, PRN, # 30 tablet, Refills 0, Tot. Refills 0, Maintenance, Pain , Moderate, 12/24/21 12:52:00 EDT, Route to Pharmacy Electronically, [facility], [place] - [id number], Partial fill upon patient request i... Start Date: 12/24/21 Status: Ordered lisinopril 40 mg oral tablet 1 tablet, By Mouth, Daily, # 90 tablet, 4 Refills, [facility], 164.3, cm, 03/08/21 12:48:00 EDT, Height, 58.9, kg, 01/26/21 13:00:00 EDT, Dry Weight Start Date: 03/28/21 Status: Ordered montelukast 10 mg oral tablet 1, tablet, By Mouth, Daily, # 90 tablet, Refills 1, Tot. Refills 1, 12/25/21 19:23:00 EDT, Route toPharmacy Electronically, [facility], [facility] [id number], 170, cm, 12/18/21 12:55:00EDT, Height, 66, kg, 07/19/21 13:21:00 EST, Dry Weight Start Date: 12/25/21 Status: Ordered omeprazole 40 mg oral enteric coated capsule 1 capsule = 40 mg, By Mouth, Daily, # 90 capsule, 2 Refills, Maintenance, 01/26/21 14:22:00 EDT, ECCapsule, [facility] [id number], Partial fill upon patient request if the prescription is for a schedule II opioid drug., 164.3... Start Date: 01/26/21 Status: Ordered omeprazole 40 mg oral enteric coated capsule 1 capsule = 40 mg, By Mouth, Daily, # 90 capsule, 3 Refills, Maintenance, 01/26/21 14:57:00 EDT, ECCapsule, [facility]/pharmacy #[id number], Partial fill upon patient request if the prescription is for a schedule II opioid drug., 164.3, cm, 01/06/21 13:12:00 EDT,... Start Date: 01/26/21 Status: Ordered propranolol 20 mg oral tablet 1, tablet, By Mouth, 3 times a day, # 90 tablet, Refills 8, Route to Pharmacy Electronically, [facility], 170, cm, 07/20/21 8:17:00 EST, Height, 66, kg, 07/19/21 13:21:00 EST, Dry Weight Start Date: 09/20/21 Status: Ordered spironolactone 25 mg oral tablet 1, tablet, By Mouth, Daily, # 90 tablet, Refills 1, Tot. Refills 1, 12/25/21 19:23:00 EDT, Route toPharmacy Electronically, [facility] [id number], 170, cm, 12/18/21 12:55:00EDT, Height, 66, kg, [...]
--- OUTSIDE RECORDS SUMMARY | 2024-04-01 01:24 | XMS_ITS | Continuity of Care Document ---
Author Organization [facility] Address [address] [place] [address]- Care Team Providers Care Lab Scientist Name Role Phone Not on Staff, PCP Primary Care Physician Unavail able Encounter [facility] Date(s): 11/10/23 - 12/10/23 [facility] [address] [place] [id number] Allergies, Adverse Reactions, Alerts No Known Medication Allergies Medications Breo Ellipta 100 mcg-25 mcg/inh inhalation powder 1 puffs, Inhalation, Daily, # 60 Unknown, 8 Refills, [facility], 270, INHALE 1 PUFF BY MOUTH INTO THE lungs DAILY, 170, cm, 07/20/21 8:17:00 EST, Height, 66, kg, 07/19/21 13:21:00 EST, Dry Weight Start Date: 09/20/21 Status: Ordered calcium-vitamin D 600 mg-400 intl units oral tablet 1 tablet, By Mouth, 2 times a day, # 60 tablet, 2 Refills, Maintenance, 04/15/22 14:16:00 EDT, [place], [place] - [id number], 30, 1 tablet By Mouth 2 times a day, 170, cm, 01/18/22 12:36:00 EDT, Height, 66, kg, 07/19/21 13:21:00 EST,... Start Date: 04/15/22 Status: Ordered cloNIDine 0.1 mg/24 hr transdermal film, extended release 1 patch, Topically, Daily, CHANGE DAILY ROTATE PLACEMENT, # 90 patch, 1 Refills, Maintenance, 01/17/21 9:19:00 EDT, Patch, [place], [place] - [id number], Partial fill upon patient request if the [...] 5 Refills, Maintenance, 01/22/21 14:24:00 EDT, ECCapsule, [facility], [place] - [id number], Partial fill upon patient request if the [...] 12/24/21 12:52:00 EDT, Route to Pharmacy Electronically, [place], [place] - [id number], Partial fill upon patient request i... Start Date: 12/24/21 Status: Ordered levothyroxine 0.112 mg oral tablet 1 tablet = 112 mcg, By Mouth, Daily, # 30 tablet, 5 Refills, Maintenance, 09/30/23 10:42:00 EST, Tablet, [facility], [place] - [id number], Partial fill upon patient request if the prescription is for a schedule II opioid drug., 170, cm,... Start Date: 09/30/23 Status: Ordered lisinopril 40 mg oral tablet 1 tablet, By Mouth, Daily, # 90 tablet, 0 Refills, 04/15/22 14:16:00 EDT, [facility] [id number], 170, cm, 01/18/22 12:36:00 EDT, Height, 66, kg, 07/19/21 13:21:00 EST, Dry Weight Start Date: 04/15/22 Status: Ordered montelukast 10 mg oral tablet 1, tablet, By Mouth, Daily, # 90 tablet, Refills 1, Tot. Refills 1, 04/15/22 14:16:00 EDT, Route toPharmacy Electronically, [facility], [place] - [id number], 170, cm, 01/18/22 12:36:00EDT, Height, 66, kg, 07/19/21 13:21:00 EST, Dry Weight Start Date: 04/15/22 Status: Ordered omeprazole 40 mg oral enteric coated capsule 1 capsule = 40 mg, By Mouth, Daily, # 90 capsule, 2 Refills, Maintenance, 01/26/21 14:22:00 EDT, ECCapsule, [place], [place] - [id number], Partial fill upon patient request if the prescription is for a schedule II opioid drug., 164.3... Start Date: 01/26/21 Status: Ordered omeprazole 40 mg oral enteric coated capsule 1 capsule = 40 mg, By Mouth, Daily, # 90 capsule, 3 Refills, Maintenance, 01/26/21 14:57:00 EDT, ECCsophie, [facility]/pharmacy #[id number], Partial fill upon patient request if the prescription is for a schedule II opioid drug., 164.3, cm, 01/06/21 13:12:00 EDT,... Start Date: 01/26/21 Status: Ordered propranolol 20 mg oral tablet 1, tablet, By Mouth, 3 times a day, # 90 tablet, Refills 8, Route to Pharmacy Electronically, [facility], 170, cm, 07/20/21 8:17:00 EST, Height, 66, kg, 07/19/21 13:21:00 EST, Dry Weight Start Date: 09/20/21 Status: Ordered spironolactone 25 mg oral tablet 1, tablet, By Mouth, Daily, # 90 tablet, Refills 0, Tot. Refills 0, 04/15/22 14:16:00 EDT, Route toPharmacy Electronically, [facility] - [place], [place] - [id number], 170, cm, 01/18/22 12:36:00EDT, Height, 66, kg, [...] Team Personnel Name: Seun Christian RN Position: [facility] RN Member Role: Primary Care Nurse Name: Not on Staff, PCP Position: [facility] Physician (General Medicine) Member Role: PCP Care Team Related Persons Name: FLACO DALAL Address: [place] [address]
--- OUTSIDE RECORDS SUMMARY | 2024-04-01 01:24 | XMS_ITS | Continuity of Care Document ---
Author Organization [facility] Adult Address [address] [place] [address]- Care Team Providers Care Explosion Welder Name Role Phone Ivanna Keller NP Primary Care Physician [id number] Date(s): 07/19/20 - 08/18/20 [facility] [address] [place] [address]- Allergies, Adverse Reactions, Alerts No Known Medication Allergies Medications amLODIPine 10 mg oral tablet 1 tablet = 10 mg, By Mouth, Daily, # 90 tablet, 1 Refills, Maintenance, 07/21/20 9:21:00 EST, Tablet, [place], [place] - [id number], Partial fill upon patient request if the [...] 1 Refills, Maintenance, 07/21/20 9:19:00 EST, Patch, [place], [place] - [id number], Partial fill upon patient request if the [...] 1 Refills, Maintenance, 06/27/20 9:26:00 EST, Solution, [facility] [place], [place] - [id number], Partial fill upon patient request, 164.3, cm, [...]
--- OUTSIDE RECORDS SUMMARY | 2024-04-01 01:24 | XMS_ITS | Continuity of Care Document ---
Author Organization [facility] Address [address] [place] [address]- Care Team Providers Care Security Professional Name Role Phone Ivanna Keller NP Primary Care Physician Encounter [facility] Date(s): 05/26/21 - 06/25/21 [facility] [address] [place] [id number] Allergies, Adverse Reactions, Alerts No [...] 01/17/21 9:19:00 EDT, Patch, [facility] [place], [place] - [id number], Partial fill upon patient request if the [...] 5 Refills, Maintenance, 01/22/21 14:24:00 EDT, ECCapsule, [place], [place] - [id number], Partial fill upon patient request if the prescription is for a schedule II opioid drug., 164.3... Start Date: 01/22/21 Stop Date: 07/21/21 Status: Ordered famotidine 40 mg oral tablet 1 tablet = 40 mg, By Mouth, 2 times a day, # 60 tablet, 2 Refills, Maintenance, 01/03/21 15:00:00 EDT, Tablet, [facility]/pharmacy #[id number], Partial fill upon patient request if the prescription is for a schedule II opioid drug., 164.3, cm, 01/03/21 14:30:00 ED... Start Date: 01/03/21 Stop Date: 04/03/21 Status: Ordered lisinopril 40 mg oral tablet 1 tablet, By Mouth, Daily, # 90 tablet, 4 Refills, [facility], 164.3, cm, 03/08/21 12:48:00 EDT, Height, 58.9, kg, 01/26/21 13:00:00 EDT, Dry Weight Start Date: 03/28/21 Status: Ordered montelukast 10 mg oral tablet 1, tablet, By Mouth, Daily, # 90 tablet, Refills 1, Route to Pharmacy Electronically, [facility], 168, cm, 05/31/21 13:35:00 EDT, Height, 58.9, kg, 01/26/21 13:00:00 EDT, Dry Weight Start Date: 06/16/21 Status: Ordered omeprazole 40 mg oral enteric coated capsule 1 capsule = 40 mg, By Mouth, Daily, # 90 capsule, 2 Refills, Maintenance, 01/26/21 14:22:00 EDT, ECCapsule, [place], [place] - [id number], Partial fill upon patient request if the prescription is for a schedule II opioid drug., 164.3... Start Date: 01/26/21 Status: Ordered omeprazole 40 mg oral enteric coated capsule 1 capsule = 40 mg, By Mouth, Daily, # 90 capsule, 3 Refills, Maintenance, 01/26/21 14:57:00 EDT, ECCapsule, [facility]/pharmacy #[id number], Partial fill upon patient request if the prescription is for a schedule II opioid drug., 164.3, cm, 01/06/21 13:12:00 EDT,... Start Date: 01/26/21 Status: Ordered propranolol 20 mg oral tablet 1, tablet, By Mouth, 3 times a day, # 90 tablet, Refills 5, Tot. Refills 5, Maintenance, 03/15/21 10:28:00 EDT, Route to Pharmacy Electronically, [facility] [id number], Please cancel rx done under Barbara Padilla MD., 164.3... Start Date: 03/15/21 Status: Ordered spironolactone 25 mg oral tablet 25 mg, 1, tablet, By Mouth, Daily, # 90 tablet, Refills 0, Tot. Refills 0, Maintenance, 06/21/21 10:23:00 EST, Route to Pharmacy Electronically, [facility] [id number], Partial fill upon patient request if the [...]
--- OUTSIDE RECORDS SUMMARY | 2024-04-01 01:24 | XMS_ITS | Continuity of Care Document ---
Author Organization [facility] Adult Address [address] [place] [address]- Care Team Providers Care Parcel Post Order Clerk Name Role Phone Ivanna Keller NP Primary Care Phys[id number] Date[facility] 11/29/20 - 12/29/20 [facility] [address] [place] [address]- Allergies, Adverse Reactions, Alerts No Known Medication Allergies Medications amLODIPine 10 mg oral tablet 1 tablet = 10 mg, By Mouth, Daily, # 90 tablet, 1 Refills, Maintenance, 07/21/20 9:21:00 EST, Tablet, [place], [place] - [id number], Partial fill upon patient request if the [...] 01/17/21 9:19:00 EDT, 07/21/20 9:19:00 EST, Patch, [place], [place] - [id number], Partial fill upon patient request if the prescri... Start Date: 07/21/20 Stop Date: 01/17/21 Status: Ordered cloNIDine 0.1 mg/24 hr transdermal film, extended release 1 patch, Topically, Daily, CHANGE DAILY ROTATE PLACEMENT, # 90 patch, 1 Refills, Maintenance, 01/17/21 9:19:00 EDT, Patch, [place], [place] - [id number], Partial fill upon patient request if the prescription is for a schedule II opioi... Start Date: 01/17/21 Stop Date: 07/16/21 Status: Ordered Colace sodium 100 mg oral capsule 100 mg, 1, capsule, By Mouth, 2 times a day, # 180 capsule, Refills 0, Tot. Refills 0, Maintenance,10/28/20 15:36:00 EDT, [id number], Partial fill upon patient request if the prescription is for a schedule II... Start Date: 10/28/20 Stop Date: 01/26/21 Status: Ordered duloxetine 60 mg oral enteric coated capsule 1 capsule = 60 mg, By Mouth, Daily, # 30 capsule, 1 Refills, Maintenance, 11/23/20 14:24:00 EDT, [place] - [id number], Partial fill upon patient request if the prescription is for a schedule II opioid drug., 164.3... Start Date: 11/23/20 Stop Date: 01/22/21 Status: Ordered famotidine 20 mg oral tablet 20 mg, 1, tablet, By Mouth, Daily at bedtime, for 21 days, # 21 tablet, Refills 0, Tot. Refills 0, Acute 01/16/21 14:49:00 EDT, 12/26/20 14:49:00 EDT, Route to Pharmacy Electronically, [facility], Partial fill upon patient request [...] 12/07/20 13:13:00 EDT, Route to Pharmacy Electronically, [facility], Partial fill upon patient request if the prescription is for a schedule... Start Date: 12/07/20 Status: Ordered Prolia 60 mg/mL subcutaneous solution See Instructions, 1 mL Subcutaneous Injection Every 6 months 3 days, # 1 each, 1 Refills, Maintenance, 06/27/20 9:26:00 EST, Solution, [facility] [place], [place] - [id number], Partial fill upon patient request, 164.3, cm, 06/15/20 14:33:00 EST,... Start Date: 06/27/20 Status: Ordered propranolol 20 mg oral tablet 20 mg, 1, tablet, By Mouth, 3 times a day, # 90 tablet, Refills 0, Tot. Refills 0, Maintenance, 12/07/20 13:13:00 EDT, Route to Pharmacy Electronically, [facility], Partial fill upon patient request if [...]
--- OUTSIDE RECORDS SUMMARY | 2024-04-01 01:24 | XMS_ITS | Continuity of Care Document ---
Author Organization [facility] Address Unknown Care Team Providers Care Debeader Name Role Phone Krishna TRAN, Ivanna Primary Care Physician Encounter [facility] Date(s): 01/18/22 - 01/25/22 [facility] Attending Physician: George JIMENES, Alaina Referring Physician: Donnie JIMENES, Kyle Fritz Allergies, Adverse Reactions, Alerts No Known Medication Allergies Medications Breo Ellipta 100 mcg-25 mcg/inh inhalation powder 1 puffs, Inhalation, Daily, # 60 Unknown, 8 Refills, [facility], 270, INHALE 1 PUFF BY MOUTH INTO THE lungs DAILY, 170, cm, 07/20/21 8:17:00 EST, Height, 66, kg, 07/19/21 13:21:00 EST, Dry Weight Start Date: 09/20/21 Status: Ordered calcium-vitamin D 600 mg-400 intl units oral tablet 1 tablet, By Mouth, 2 times a day, # 60 tablet, 11 Refills, Maintenance, 03/03/21 13:28:00 EDT, [facility], 30, TAKE ONE TABLET BY MOUTH two (2) times a day, 164.3, cm, 01/06/21 13:12:00 EDT, Height, 58.9, kg, 01/26/21 13:00:00 EDT, Dry Weight Start Date: 03/03/21 Status: Ordered cloNIDine 0.1 mg/24 hr transdermal film, extended release 1 patch, Topically, Daily, CHANGE DAILY ROTATE PLACEMENT, # 90 patch, 1 Refills, Maintenance, 01/17/21 9:19:00 EDT, Patch, [facility] - [place], [place] - [id number], Partial fill upon patient request if the [...] 5 Refills, Maintenance, 01/22/21 14:24:00 EDT, ECCapsule, [place], [place] - [id number], Partial fill upon patient request if the prescription is for a schedule II opioid drug., 164.3... Start Date: 01/22/21 Stop Date: 07/21/21 Status: Ordered famotidine 40 mg oral tablet 1 tablet = 40 mg, By Mouth, 2 times a day, # 60 tablet, 2 Refills, Maintenance, 01/03/21 15:00:00 EDT, Tablet, [facility]/pharmacy #[id number], Partial fill upon patient request if the prescription is for a schedule II opioid drug., 164.3, cm, 01/03/21 14:30:00 ED... Start Date: 01/03/21 Stop Date: 04/03/21 Status: Ordered ibuprofen 800 mg oral tablet 800 mg, 1, tablet, By Mouth, Daily, PRN, # 30 tablet, Refills 0, Tot. Refills 0, Maintenance, Pain , Moderate, 12/24/21 12:52:00 EDT, Route to Pharmacy Electronically, [place], [place] - [id number], Partial fill upon patient request i... Start Date: 12/24/21 Status: Ordered lisinopril 40 mg oral tablet 1 tablet, By Mouth, Daily, # 90 tablet, 4 Refills, [facility], 164.3, cm, 03/08/21 12:48:00 EDT, Height, 58.9, kg, 01/26/21 13:00:00 EDT, Dry Weight Start Date: 03/28/21 Status: Ordered montelukast 10 mg oral tablet 1, tablet, By Mouth, Daily, # 90 tablet, Refills 1, Tot. Refills 1, 12/25/21 19:23:00 EDT, Route toPharmacy Electronically, [facility] [id number], 170, cm, 12/18/21 12:55:00EDT, Height, 66, kg, 07/19/21 13:21:00 EST, Dry Weight Start Date: 12/25/21 Status: Ordered omeprazole 40 mg oral enteric coated capsule 1 capsule = 40 mg, By Mouth, Daily, # 90 capsule, 2 Refills, Maintenance, 01/26/21 14:22:00 EDT, ECCapsule, [facility] [id number], Partial fill upon patient request if the prescription is for a schedule II opioid drug., 164.3... Start Date: 01/26/21 Status: Ordered omeprazole 40 mg oral enteric coated capsule 1 capsule = 40 mg, By Mouth, Daily, # 90 capsule, 3 Refills, Maintenance, 01/26/21 14:57:00 EDT, ECCapsule, [facility]/pharmacy #[id number], Partial fill upon patient request if the prescription is for a schedule II opioid drug., 164.3, cm, 01/06/21 13:12:00 EDT,... Start Date: 01/26/21 Status: Ordered propranolol 20 mg oral tablet 1, tablet, By Mouth, 3 times a day, # 90 tablet, Refills 8, Route to Pharmacy Electronically, [facility], 170, cm, 07/20/21 8:17:00 EST, Height, 66, kg, 07/19/21 13:21:00 EST, Dry Weight Start Date: 09/20/21 Status: Ordered spironolactone 25 mg oral tablet 1, tablet, By Mouth, Daily, # 90 tablet, Refills 1, Tot. Refills 1, 12/25/21 19:23:00 EDT, Route toPharmacy Electronically, [facility] [id number], 170, cm, 12/18/21 12:55:00EDT, Height, 66, kg, [...] recent to oldest [Reference Range]: 1 Height 170 cm (01/18/22 12:36 PM) Weight 65.9 kg (01/18/22 12:36 PM) Pulse Rate [55-90 bpm] 70 bpm (01/18/22 12:36 PM) Body Mass Index [18.5-24.99] 22.8 (01/18/22 12:36 PM) Blood Pressure [90-138/55-84 mm Hg] 157/ 79mm Hg *H* (01/18/22 12:36 PM) Respiratory Rate [16-30 br/min] 16 br/mi n (01/18/22 12:36 PM) Temperature [96.8-100.4 DegF] 97.4 DegF (01/18/22 12:36 PM) Blood pressure sites Arm, left (01/18/22 12:36 PM) Temperature Route Temporal (01/18/22 12:36 PM) Weight Obtained Via Standing scale (01/18/22 12:36 PM) Social History Social History Type Response Tobacco Use: 4 or less cigar ettes(less than 1/4 pack)/day in last 30 days. Other: 3-3 packs a day for about 30-40. Now 3-4 day. Sex
--- OUTSIDE RECORDS SUMMARY | 2024-04-01 01:25 | XMS_ITS | Continuity of Care Document ---
Author Organization [facility] Adult Address [address] [place] [address]- Care Team Providers Care Manager Commission Name Role Phone Ivanna Keller NP Primary Care Physician Encounter [facility] Date(s): 03/01/21 - 03/31/21 [facility] [address] [place] [address]- Allergies, Adverse Reactions, Alerts No Known Medication Allergies Medications amLODIPine 10 mg oral tablet 1 tablet, By Mouth, Daily, # 90 tablet, 1 Refills, Maintenance, 02/23/21 9:38:00 EDT, [facility], 164.3, cm, 01/06/21 13:12:00 EDT, Height, 58.9, kg, 01/26/21 13:00:00 EDT, Dry Weight Start Date: 02/23/21 Status: Ordered calcium-vitamin D 600 mg-400 intl units oral tablet 1 tablet, By Mouth, 2 times a day, # 60 tablet, 11 Refills, Maintenance, 03/03/21 13:28:00 EDT, [facility], 30, TAKE ONE TABLET BY MOUTH two (2) times a day, 164.3, cm, 01/06/21 13:12:00 EDT, Height, 58.9, kg, 01/26/21 13:00:00 EDT, Dry Weight Start Date: 03/03/21 Status: Ordered cholestyramine 4 g/5.5 g oral powder for reconstitution = 4 Gm, By Mouth, 2 times a day, # 60 each, 3 Refills, Maintenance, 03/08/21 13:22:00 EDT, REC Powder, [place], [place] - [id number], Partial fill upon patient request if the prescription is for a schedule II opioid drug., 164.3, cm,... Start Date: 03/08/21 Status: Ordered cloNIDine 0.1 mg/24 hr transdermal film, extended release 1 patch, Topically, Daily, CHANGE DAILY ROTATE PLACEMENT, # 90 patch, 1 Refills, Maintenance, 01/17/21 9:19:00 EDT, Patch, [place], [place] - [id number], Partial fill upon patient request if the prescription is for a schedule II opioi... Start Date: 01/17/21 Stop Date: 07/16/21 Status: Ordered duloxetine 60 mg oral enteric coated capsule 1 capsule = 60 mg, By Mouth, Daily, # 30 capsule, 5 Refills, Maintenance, 01/22/21 14:24:00 EDT, ECCapsule, [place], [place] - [id number], Partial fill upon patient request if the prescription is for a schedule II opioid drug., 164.3... Start Date: 01/22/21 Stop Date: 07/21/21 Status: Ordered famotidine 40 mg oral tablet 1 tablet = 40 mg, By Mouth, 2 times a day, # 60 tablet, 2 Refills, Maintenance, 01/03/21 15:00:00 EDT, Tablet, [facility]/pharmacy #[id number], Partial fill upon patient request if the prescription is for a schedule II opioid drug., 164.3, cm, 01/03/21 14:30:00 ED... Start Date: 01/03/21 Stop Date: 04/03/21 Status: Ordered lisinopril 40 mg oral tablet 1 tablet, By Mouth, Daily, # 90 tablet, 4 Refills, [facility], 164.3, cm, 03/08/21 12:48:00 EDT, Height, 58.9, kg, 01/26/21 13:00:00 EDT, Dry Weight Start Date: 03/28/21 Status: Ordered montelukast 10 mg oral tablet 1, tablet, By Mouth, Daily, # 90 tablet, Refills 0, Route to Pharmacy Electronically, [facility], 164.3, cm, 03/08/21 12:48:00 EDT, Height, 58.9, kg, 01/26/21 13:00:00 EDT, Dry Weight Start Date: 03/28/21 Status: Ordered omeprazole 40 mg oral enteric coated capsule 1 capsule = 40 mg, By Mouth, Daily, # 90 capsule, 2 Refills, Maintenance, 01/26/21 14:22:00 EDT, ECCapsule, [place], [place] - [id number], Partial fill upon patient request if the prescription is for a schedule II opioid drug., 164.3... Start Date: 01/26/21 Status: Ordered omeprazole 40 mg oral enteric coated capsule 1 capsule = 40 mg, By Mouth, Daily, # 90 capsule, 3 Refills, Maintenance, 01/26/21 14:57:00 EDT, ECCapsule, [facility]/pharmacy #[id number], Partial fill upon patient request if the prescription is for a schedule II opioid drug., 164.3, cm, 01/06/21 13:12:00 EDT,... Start Date: 01/26/21 Status: Ordered predniSONE 20 mg oral tablet 2 tablet = 40 mg, By Mouth, Daily, for 14 days, # 28 tablet, 3 Refills, Acute 05/11/21 5:14:00 EDT,03/16/21 5:14:00 EDT, Tablet, [place], [place] - [id number], Partial fill upon patient request if the prescription is for a schedule I... Start Date: 03/16/21 Stop Date: 05/11/21 Status: Ordered propranolol 20 mg oral tablet 1, tablet, By Mouth, 3 times a day, # 90 tablet, Refills 5, Tot. Refills 5, Maintenance, 03/15/21 10:28:00 EDT, Route to Pharmacy Electronically, [place], [place] - [id number], Please cancel rx done under Barbara Padilla MD., 164.3... Start Date: 03/15/21 Status: Ordered propylthiouracil 50 mg oral tablet 2 tablet = 100 mg, By Mouth, Every 8 hours, # 180 tablet, 6 Refills, Maintenance, 01/10/21 10:34:00EDT, [id number] Partial fill upon patient [...]
--- OUTSIDE RECORDS SUMMARY | 2024-04-01 01:25 | XMS_ITS | Continuity of Care Document ---
Author Organization [facility] Adult Address [address] [place] [address]- Care Team Providers Care Raymond Mill Operator Name Role Phone Ivanna Keller NP Primary Care Physician [phone] Encounter [facility] Date(s): 04/25/21 - 05/25/21 [facility] Adult [address] [place] [address]- Allergies, Adverse Reactions, Alerts No Known Medication [...] 13:22:00 EDT, REC Powder, [facility] [place], [place] - [id number], Partial fill upon patient request if the prescription is for a schedule II opioid drug., 164.3, cm,... Start Date: 03/08/21 Status: Ordered cloNIDine 0.1 mg/24 hr transdermal film, extended release 1 patch, Topically, Daily, CHANGE DAILY ROTATE PLACEMENT, # 90 patch, 1 Refills, Maintenance, 01/17/21 9:19:00 EDT, Patch, [facility], [place] - [id number], Partial fill upon patient request if the prescription is for a schedule II opioi... Start Date: 01/17/21 Stop Date: 07/16/21 Status: Ordered duloxetine 60 mg oral enteric coated capsule 1 capsule = 60 mg, By Mouth, Daily, # 30 capsule, 5 Refills, Maintenance, 01/22/21 14:24:00 EDT, ECCapsule, [place], [place] - [id number], Partial fill upon patient request if the prescription is for a schedule II opioid drug., 164.3... Start Date: 01/22/21 Stop Date: 07/21/21 Status: Ordered famotidine 40 mg oral tablet 1 tablet = 40 mg, By Mouth, 2 times a day, # 60 tablet, 2 Refills, Maintenance, 01/03/21 15:00:00 EDT, Tablet, [facility]/pharmacy #[id number], Partial fill upon patient request if the prescription is for a schedule II opioid drug., 164.3, cm, 01/03/21 14:30:00 ED... Start Date: 01/03/21 Stop Date: 04/03/21 Status: Ordered hydrochlorothiazide 25 mg oral tablet 25 mg, 1, tablet, By Mouth, Daily, # 30 tablet, Refills 0, Tot. Refills 0, Maintenance, 05/16/21 13:19:00 EDT, Route to Pharmacy Electronically, [place], [place] - [id number], Partial fill upon patient request if the prescription is f... Start Date: 05/16/21 Stop Date: 06/15/21 Status: Ordered lisinopril 40 mg oral tablet 1 tablet, By Mouth, Daily, # 90 tablet, 4 Refills, [facility], 164.3, cm, 03/08/21 12:48:00 EDT, Height, 58.9, kg, 01/26/21 13:00:00 EDT, Dry Weight Start Date: 03/28/21 Status: Ordered montelukast 10 mg oral tablet 1, tablet, By Mouth, Daily, # 90 tablet, Refills 0, Route to Pharmacy Electronically, [facility], 164.3, cm, 03/08/21 12:48:00 EDT, Height, 58.9, kg, 01/26/21 13:00:00 EDT, Dry Weight Start Date: 03/28/21 Status: Ordered omeprazole 40 mg oral enteric coated capsule 1 capsule = 40 mg, By Mouth, Daily, # 90 capsule, 2 Refills, Maintenance, 01/26/21 14:22:00 EDT, ECCapsule, [place], [place] - [id number], Partial fill upon patient request if the prescription is for a schedule II opioid drug., 164.3... Start Date: 01/26/21 Status: Ordered omeprazole 40 mg oral enteric coated capsule 1 capsule = 40 mg, By Mouth, Daily, # 90 capsule, 3 Refills, Maintenance, 01/26/21 14:57:00 EDT, ECCapsule, [facility]/pharmacy #[id number], Partial fill upon patient [...] tablet, 0 Refills, Maintenance, 04/04/21 13:21:00 EDT, Tablet,[facility] [id number], Par... Start Date: 04/04/21 Status: Ordered propranolol 20 mg oral tablet 1, tablet, By Mouth, 3 times a day, # 90 tablet, Refills 5, Tot. Refills 5, Maintenance, 03/15/21 10:28:00 EDT, Route to Pharmacy Electronically, [facility] [id number], Please cancel rx done under Barbara Padilla MD., 164.3... Start Date: 03/15/21 Status: Ordered propylthiouracil 50 mg oral tablet 2 tablet = 100 mg, By Mouth, Every 8 hours, # 180 tablet, 6 Refills, Maintenance, 01/10/21 10:34:00EDT, Tablet, [facility]/pharmacy #[id number], Partial fill upon patient [...]
--- OUTSIDE RECORDS SUMMARY | 2024-04-01 01:25 | XMS_ITS | Continuity of Care Document ---
Author Organization [facility] Adult Address [address] [place] [address]- Care Team Providers Care Clerk Of Works Name Role Phone Ivanna Keller NP Primary [facility] Phys[id number] Adult [address] [place] [address]- Attending Physician: Randy JIMENES, Barbara Referring Physician: Ivanna Keller NP Allergies, Adverse Reactions, Alerts No Known Medication Allergies Medications amoxicillin 500 mg oral tablet 2 tablet = 1,000 mg, By Mouth, 2 times a day, for 14 days, # 56 tablet, 0 Refills, Acute 08/09/21 14:12:00 EST, 07/26/21 14:12:00 EST, Tablet, [facility] [place], [place] - [id number], Partial fill upon patient request if the [...] 08/09/21 14:12:00 EST, 07/26/21 14:12:00 EST, Tablet, [place], [place] - [id number], Partial fill upon patient request if the prescription is for... Start Date: 07/26/21 Stop Date: 08/09/21 Status: Ordered cloNIDine 0.1 mg/24 hr transdermal film, extended release 1 patch, Topically, Daily, CHANGE DAILY ROTATE PLACEMENT, # 90 patch, 1 Refills, Maintenance, 01/17/21 9:19:00 EDT, Patch, [place], [place] - [id number], Partial fill upon patient request if the [...] 5 Refills, Maintenance, 01/22/21 14:24:00 EDT, ECCapsule, [place], [place] - [id number], Partial fill upon patient request if the [...] Mouth, Daily, # 90 tablet, 4 Refills, [facility], 164.3, cm, 03/08/21 12:48:00 EDT, Height, 58.9, kg, 01/26/21 13:00:00 EDT, Dry Weight Start Date: 03/28/21 Status: Ordered montelukast 10 mg oral tablet 1, tablet, By Mouth, Daily, # 90 tablet, Refills 1, Route to Pharmacy Electronically, [facility], 168, cm, 05/31/21 13:35:00 EDT, Height, 58.9, kg, 01/26/21 13:00:00 EDT, Dry Weight Start Date: 06/16/21 Status: Ordered omeprazole 40 mg oral enteric coated capsule 1 capsule = 40 mg, By Mouth, Daily, # 90 capsule, 2 Refills, Maintenance, 01/26/21 14:22:00 EDT, [place] - [id number], Partial fill upon patient request if the prescription is for a schedule II opioid drug., 164.3... Start Date: 01/26/21 Status: Ordered omeprazole 40 mg oral enteric coated capsule 1 capsule = 40 mg, By Mouth, Daily, # 90 capsule, 3 Refills, Maintenance, 01/26/21 14:57:00 EDT, [id number], Partial fill upon patient request if the prescription is for a schedule II opioid drug., 164.3, cm, 01/06/21 13:12:00 EDT,... Start Date: 01/26/21 Status: Ordered propranolol 20 mg oral tablet 1, tablet, By Mouth, 3 times a day, # 90 tablet, Refills 5, Tot. Refills 5, Maintenance, 03/15/21 10:28:00 EDT, Route to Pharmacy Electronically, [place], [place] - [id number], Please cancel rx done under Barbara Padilla MD., 164.3... Start Date: 03/15/21 Status: Ordered spironolactone 25 mg oral tablet 25 mg, 1, tablet, By Mouth, Daily, # 90 tablet, Refills 0, Tot. Refills 0, Maintenance, 06/21/21 10:23:00 EST, Route to Pharmacy Electronically, [facility] - [place], [place] - [id number], Partial fill upon patient request if the [...] oldest [Reference Range]: 1 Height 170 cm (07/20/21 8:17 AM) Social History Social History Type Response Tobacco Use: 4 or less cigar ettes(less than 1/4 pack)/day in last 30 days. Other: 3-3 packs a day for about 30-40. Now 3-4 day. Sex
--- OUTSIDE RECORDS SUMMARY | 2024-04-01 01:25 | XMS_ITS | Continuity of Care Document ---
Author Organization [facility] Address [address] [place] [address]- Care Team Providers Care Garbage Truck Driver Name Role Phone Not on Staff, PCP Primary Care Physician Unavail able Encounter [facility] [place] Date(s): 04/10/23 - 05/10/23 [facility] [address] [place] [address] Allergies, Adverse Reactions, Alerts No Known Medication Allergies Medications Breo Ellipta 100 mcg-25 mcg/inh inhalation powder 1 puffs, Inhalation, Daily, # 60 Unknown, 8 Refills, [facility], [facility], INHALE 1 PUFF BY MOUTH INTO THE lungs DAILY, 170, cm, 07/20/21 8:17:00 EST, Height, 66, kg, 07/19/21 13:21:00 EST, Dry Weight Start Date: 09/20/21 Status: Ordered calcium-vitamin D 600 mg-400 intl units oral tablet 1 tablet, By Mouth, 2 times a day, # 60 tablet, 2 Refills, Maintenance, 04/15/22 14:16:00 EDT, [place], [place] - [id number], 30, 1 tablet By Mouth 2 times a day, 170, cm, 01/18/22 12:36:00 EDT, Height, 66, kg, 07/19/21 13:21:00 EST,... Start Date: 04/15/22 Status: Ordered cloNIDine 0.1 mg/24 hr transdermal film, extended release 1 patch, Topically, Daily, CHANGE DAILY ROTATE PLACEMENT, # 90 patch, 1 Refills, Maintenance, 01/17/21 9:19:00 EDT, Patch, [place], [place] - [id number], Partial fill upon patient request if the [...] 5 Refills, Maintenance, 01/22/21 14:24:00 EDT, ECCapsule, [facility] [id number], Partial fill upon patient request if the [...] 12/24/21 12:52:00 EDT, Route to Pharmacy Electronically, [facility] [id number], Partial fill upon patient request i... Start Date: 12/24/21 Status: Ordered levothyroxine 0.112 mg oral tablet 1 tablet = 112 mcg, By Mouth, Daily, # 30 tablet, 5 Refills, Maintenance, 04/03/23 6:09:00 EDT, Tablet, [facility] [id number], Partial fill upon patient request if the prescription is for a schedule II opioid drug., 170, cm, 0... Start Date: 04/03/23 Status: Ordered lisinopril 40 mg oral tablet 1 tablet, By Mouth, Daily, # 90 tablet, 0 Refills, 04/15/22 14:16:00 EDT, [place], [place] - [id number], 170, cm, 01/18/22 12:36:00 EDT, Height, 66, kg, 07/19/21 13:21:00 EST, Dry Weight Start Date: 04/15/22 Status: Ordered montelukast 10 mg oral tablet 1, tablet, By Mouth, Daily, # 90 tablet, Refills 1, Tot. Refills 1, 04/15/22 14:16:00 EDT, Route toPharmacy Electronically, [place], [place] - [id number], 170, cm, 01/18/22 12:36:00EDT, Height, 66, kg, 07/19/21 13:21:00 EST, Dry Weight Start Date: 04/15/22 Status: Ordered omeprazole 40 mg oral enteric coated capsule 1 capsule = 40 mg, By Mouth, Daily, # 90 capsule, 2 Refills, Maintenance, 01/26/21 14:22:00 EDT, ECCapsule, [place], [place] - [id number], Partial fill upon patient request if the prescription is for a schedule II opioid drug., 164.3... Start Date: 01/26/21 Status: Ordered omeprazole 40 mg oral enteric coated capsule 1 capsule = 40 mg, By Mouth, Daily, # 90 capsule, 3 Refills, Maintenance, 01/26/21 14:57:00 EDT, ECCsophie, [facility]/pharmacy #[id number], Partial fill upon patient request if the prescription is for a schedule II opioid drug., 164.3, cm, 01/06/21 13:12:00 EDT,... Start Date: 01/26/21 Status: Ordered propranolol 20 mg oral tablet 1, tablet, By Mouth, 3 times a day, # 90 tablet, Refills 8, Route to Pharmacy Electronically, [facility], 170, cm, 07/20/21 8:17:00 EST, Height, 66, kg, 07/19/21 13:21:00 EST, Dry Weight Start Date: 09/20/21 Status: Ordered spironolactone 25 mg oral tablet 1, tablet, By Mouth, Daily, # 90 tablet, Refills 0, Tot. Refills 0, 04/15/22 14:16:00 EDT, Route toPharmacy Electronically, [facility] - [place], [place] - [id number], 170, cm, 01/18/22 12:36:00EDT, Height, 66, kg, [...] Team Personnel Name: Seun Christian RN Position: [facility] RN Member Role: Primary Care Nurse Name: Not on Staff, PCP Position: [facility] Physician (General Medicine) Member Role: PCP Care Team Related Persons Name: FLACO DALAL Address: [place] [address]
--- OUTSIDE RECORDS SUMMARY | 2024-04-01 01:25 | XMS_ITS | Continuity of Care Document ---
Author Organization [facility] Adult Address [address] [place] [address]- Care Team Providers Care Grease Refining Supervisor Name Role Phone Ivanna Keller NP Primary Care Physician [phone] Encounter [facility] Date(s): 11/18/20 - 12/18/20 [facility] Adult [address] [place] [address]- Allergies, Adverse Reactions, Alerts No Known Medication Allergies Medications amLODIPine 10 mg oral tablet 1 tablet = 10 mg, By Mouth, Daily, # 90 tablet, 1 Refills, Maintenance, 07/21/20 9:21:00 EST, Tablet, [place], [place] - [id number], Partial fill upon patient request if the [...] 1 Refills, Maintenance, 07/21/20 9:19:00 EST, Patch, [place], [place] - [id number], Partial fill upon patient request if the prescription is for a schedule II opioi... Start Date: 07/21/20 Stop Date: 01/17/21 Status: Ordered Colace sodium 100 mg oral capsule 100 mg, 1, capsule, By Mouth, 2 times a day, # 180 capsule, Refills 0, Tot. Refills 0, Maintenance,10/28/20 15:36:00 EDT, Route to Pharmacy Electronically, [facility]/pharmacy #[id number], Partial fill upon patient request if the prescription is for a schedule II... Start Date: 10/28/20 Stop Date: 01/26/21 Status: Ordered duloxetine 60 mg oral enteric coated capsule 1 capsule = 60 mg, By Mouth, Daily, # 30 capsule, 1 Refills, Maintenance, 11/23/20 14:24:00 EDT, ECCapsule, [facility] [id number], Partial fill upon patient request if the [...] 12/07/20 13:13:00 EDT, Route to Pharmacy Electronically, [facility] 3, Partial fill upon patient request if the prescription is for a schedule... Start Date: 12/07/20 Status: Ordered Milk of Magnesia 8% oral suspension 30 mL = 2.4 Gm, By Mouth, Daily at bedtime, PRN for constipation, for 5 days, # 360 mL, 0 Refills, Acute 12/19/20 10:01:00 EDT, 12/14/20 10:01:00 EDT, Suspension, [place], [place] - [id number], Partial fill upon patient request if the... Start Date: 12/14/20 Stop Date: 12/19/20 Status: Ordered Prolia 60 mg/mL subcutaneous solution See Instructions, 1 mL Subcutaneous Injection Every 6 months 3 days, # 1 each, 1 Refills, Maintenance, 06/27/20 9:26:00 EST, Solution, [facility], [facility] [id number], Partial fill upon patient request, 164.3, cm, 06/15/20 14:33:00 EST,... Start Date: 06/27/20 Status: Ordered propranolol 20 mg oral tablet 20 mg, 1, tablet, By Mouth, 3 times a day, # 90 tablet, Refills 0, Tot. Refills 0, Maintenance, 12/07/20 13:13:00 EDT, Route to Pharmacy Electronically, [facility], Partial fill upon patient [...]
--- OUTSIDE RECORDS SUMMARY | 2024-04-01 01:25 | XMS_ITS | Continuity of Care Document ---
Author Organization [facility] Adult Address [address] [place] [address]- Care Team Providers Care Music Critic Name Role Phone Ivanna Keller NP Primary Care Physician [phone] [id number] Date(s): 08/26/20 - 09/25/[address] [facility] Adult [address] [place] [address]- Allergies, Adverse Reactions, Alerts No Known Medication Allergies Medications amLODIPine 10 mg oral tablet 1 tablet = 10 mg, By Mouth, Daily, # 90 tablet, 1 Refills, Maintenance, 07/21/20 9:21:00 EST, Tablet, [place], [place] - [id number], Partial fill upon patient request if the [...] 1 Refills, Maintenance, 07/21/20 9:19:00 EST, Patch, [place], [place] - [id number], Partial fill upon patient request if the [...] 1 Refills, Maintenance, 06/27/20 9:26:00 EST, Solution, [facility] [place], [place] - [id number], Partial fill upon patient request, 164.3, cm, [...]
--- OUTSIDE RECORDS SUMMARY | 2024-04-01 01:25 | XMS_ITS | Continuity of Care Document ---
Author Organization [facility] Address [address] [place] [address]- Care Team Providers Care Company Miner Blasting Name Role Phone Ivanna Keller NP Primary Care Physician Encounter [facility] Date(s): 01/03/21 - 02/02/21 [facility] Adult [address] [place] [address]- Allergies, Adverse Reactions, Alerts No Known Medication Allergies Medications amLODIPine 10 mg oral tablet 1 tablet = 10 mg, By Mouth, Daily, # 90 tablet, 1 Refills, Maintenance, 07/21/20 9:21:00 EST, Tablet, [place], [place] - [id number], Partial fill upon patient request if the [...] 01/17/21 9:19:00 EDT, Patch, [place], [place] - [id number], Partial fill upon patient request if the prescription is for a schedule II opioi... Start Date: 01/17/21 Stop Date: 07/16/21 Status: Ordered duloxetine 60 mg oral enteric coated capsule 1 capsule = 60 mg, By Mouth, Daily, # 30 capsule, 5 Refills, Maintenance, 01/22/21 14:24:00 EDT, [place] - [id number], Partial fill upon patient request if the prescription is for a schedule II opioid drug., 164.3... Start Date: 01/22/21 Stop Date: 07/21/21 Status: Ordered famotidine 40 mg oral tablet 1 tablet = 40 mg, By Mouth, 2 times a day, # 60 tablet, 2 Refills, Maintenance, 01/03/21 15:00:00 EDT, Tablet, [facility]/pharmacy #[id number], Partial fill upon [...] capsule, 2 Refills, Maintenance, 01/26/21 14:22:00 EDT, [place] - [id number], Partial fill upon patient request if the prescription is for a schedule II opioid drug., 164.3... Start Date: 01/26/21 Status: Ordered omeprazole 40 mg oral enteric coated capsule 1 capsule = 40 mg, By Mouth, Daily, # 90 capsule, 3 Refills, Maintenance, 01/26/21 14:57:00 EDT, ECCapsule, [facility]/pharmacy #[id number], Partial fill upon patient request if the prescription is for a schedule II opioid drug., 164.3, cm, 01/06/21 13:12:00 EDT,... Start Date: 01/26/21 Status: Ordered propranolol 20 mg oral tablet 20 mg, 1, tablet, By Mouth, 3 times a day, # 90 tablet, Refills 0, Tot. Refills 0, Maintenance, 12/07/20 13:13:00 EDT, Route to Pharmacy Electronically, [facility] 3, Partial fill upon patient request if the prescription is for a schedule... Start Date: 12/07/20 Status: Ordered propylthiouracil 50 mg oral tablet 2 tablet = 100 mg, By Mouth, Every 8 hours, # 180 tablet, 6 Refills, Maintenance, 01/10/21 10:34:00EDT, Tablet, [facility]/pharmacy #[id number], Partial fill upon patient request if the [...]
--- OUTSIDE RECORDS SUMMARY | 2024-04-01 01:25 | XMS_ITS | Continuity of Care Document ---
Author Organization [facility] Adult Address [address] [place] [address]- Care Team Providers Care Video Presentation Operator Name Role Phone Ivanna Keller NP Primary Care Physician [phone] Encounter [facility] Date(s): 04/11/21 - 05/11/21 [facility] Adult [address] [place] [address]- Allergies, Adverse Reactions, Alerts No Known Medication [...] Refills, Maintenance, 03/08/21 13:22:00 EDT, REC Powder, [place], [place] - [id number], Partial fill upon patient request if the prescription is for a schedule II opioid drug., 164.3, cm,... Start Date: 03/08/21 Status: Ordered cloNIDine 0.1 mg/24 hr transdermal film, extended release 1 patch, Topically, Daily, CHANGE DAILY ROTATE PLACEMENT, # 90 patch, 1 Refills, Maintenance, 01/17/21 9:19:00 EDT, Patch, [place], [place] - [id number], Partial fill upon patient request if the prescription is for a schedule II opioi... Start Date: 01/17/21 Stop Date: 07/16/21 Status: Ordered duloxetine 60 mg oral enteric coated capsule 1 capsule = 60 mg, By Mouth, Daily, # 30 capsule, 5 Refills, Maintenance, 01/22/21 14:24:00 EDT, ECCapsule, [facility] [id number], Partial fill upon patient request if the [...] Mouth, Daily, # 90 tablet, 4 Refills, [facility], 164.3, cm, 03/08/21 12:48:00 EDT, Height, 58.9, kg, 01/26/21 13:00:00 EDT, Dry Weight Start Date: 03/28/21 Status: Ordered montelukast 10 mg oral tablet 1, tablet, By Mouth, Daily, # 90 tablet, Refills 0, Route to Pharmacy Electronically, [facility], 164.3, cm, 03/08/21 12:48:00 EDT, Height, 58.9, kg, 01/26/21 13:00:00 EDT, Dry Weight Start Date: 03/28/21 Status: Ordered omeprazole 40 mg oral enteric coated capsule 1 capsule = 40 mg, By Mouth, Daily, # 90 capsule, 2 Refills, Maintenance, 01/26/21 14:22:00 EDT, ECCapsule, [place], [place] - [id number], Partial fill upon patient request if the prescription is for a schedule II opioid drug., 164.3... Start Date: 01/26/21 Status: Ordered omeprazole 40 mg oral enteric coated capsule 1 capsule = 40 mg, By Mouth, Daily, # 90 capsule, 3 Refills, Maintenance, 01/26/21 14:57:00 EDT, ECCapsule, [facility]/pharmacy #[id number], Partial fill upon patient request [...] tablet, 0 Refills, Maintenance, 04/04/21 13:21:00 EDT, Tablet,[place], [place] - [id number], Par... Start Date: 04/04/21 Status: Ordered propranolol 20 mg oral tablet 1, tablet, By Mouth, 3 times a day, # 90 tablet, Refills 5, Tot. Refills 5, Maintenance, 03/15/21 10:28:00 EDT, Route to Pharmacy Electronically, [facility] [id number], Please cancel rx done under Barbara Padilla MD., 164.3... Start Date: 03/15/21 Status: Ordered propylthiouracil 50 mg oral tablet 2 tablet = 100 mg, By Mouth, Every 8 hours, # 180 tablet, 6 Refills, Maintenance, 01/10/21 10:34:00EDT, Tablet, [facility]/pharmacy #[id number], Partial fill upon patient request if the [...]
--- OUTSIDE RECORDS SUMMARY | 2024-04-01 01:25 | XMS_ITS | Continuity of Care Document ---
Author Organization [facility] Address [address] [place] [address]- Care Team Providers Care Dispatcher Radioactive Waste Disposal Name Role Phone Ivanna Keller NP Primary Care Physician [place] [facility]11[place]21 - 05/11/21 [facility] [address], [place] [address] Allergies, Adverse Reactions, Alerts No [...] Refills, Maintenance, 03/08/21 13:22:00 EDT, REC Powder, [place], [place] - [id number], Partial fill upon patient request if the prescription is for a schedule II opioid drug., 164.3, cm,... Start Date: 03/08/21 Status: Ordered cloNIDine 0.1 mg/24 hr transdermal film, extended release 1 patch, Topically, Daily, CHANGE DAILY ROTATE PLACEMENT, # 90 patch, 1 Refills, Maintenance, 01/17/21 9:19:00 EDT, Patch, [place], [place] - [id number], Partial fill upon patient request if the prescription is for a schedule II opioi... Start Date: 01/17/21 Stop Date: 07/16/21 Status: Ordered duloxetine 60 mg oral enteric coated capsule 1 capsule = 60 mg, By Mouth, Daily, # 30 capsule, 5 Refills, Maintenance, 01/22/21 14:24:00 EDT, ECCapsule, [facility] [phone], Partial fill upon patient request if the prescription is for a schedule II opioid drug., 164.3... Start Date: 01/22/21 Stop Date: 07/21/21 Status: Ordered famotidine 40 mg oral tablet 1 tablet = 40 mg, By Mouth, 2 times a day, # 60 tablet, 2 Refills, Maintenance, 01/03/21 15:00:00 EDT, Tablet, [facility]/pharmacy #[id number], Partial fill upon patient request if the prescription is for a schedule II opioid drug., 164.3, cm, 01/03/21 14:30:00 ED... Start Date: 01/03/21 Stop Date: 04/03/21 Status: Ordered lisinopril 40 mg oral tablet 1 tablet, By Mouth, Daily, # 90 tablet, 4 Refills, [facility], [place], 164.3, cm, 03/08/21 12:48:00 EDT, Height, 58.9, kg, 01/26/21 13:00:00 EDT, Dry Weight Start Date: 03/28/21 Status: Ordered montelukast 10 mg oral tablet 1, tablet, By Mouth, Daily, # 90 tablet, Refills 0, Route to Pharmacy Electronically, [facility] [place], 164.3, cm, 03/08/21 12:48:00 EDT, Height, 58.9, kg, 01/26/21 13:00:00 EDT, Dry Weight Start Date: 03/28/21 Status: Ordered omeprazole 40 mg oral enteric coated capsule 1 capsule = 40 mg, By Mouth, Daily, # 90 capsule, 2 Refills, Maintenance, 01/26/21 14:22:00 EDT, ECCapsule, [place], [place] - [id number], Partial fill upon patient request if the prescription is for a schedule II opioid drug., 164.3... Start Date: 01/26/21 Status: Ordered omeprazole 40 mg oral enteric coated capsule 1 capsule = 40 mg, By Mouth, Daily, # 90 capsule, 3 Refills, Maintenance, 01/26/21 14:57:00 EDT, ECCapsule, [facility]/pharmacy #[id number], Partial fill upon patient request [...] tablet, 0 Refills, Maintenance, 04/04/21 13:21:00 EDT, Tablet,[place], [place] - [id number], Par... Start Date: 04/04/21 Status: Ordered propranolol 20 mg oral tablet 1, tablet, By Mouth, 3 times a day, # 90 tablet, Refills 5, Tot. Refills 5, Maintenance, 03/15/21 10:28:00 EDT, Route to Pharmacy Electronically, [facility] [id number], Please cancel rx done under Barbara Padilla MD., 164.3... Start Date: 03/15/21 Status: Ordered propylthiouracil 50 mg oral tablet 2 tablet = 100 mg, By Mouth, Every 8 hours, # 180 tablet, 6 Refills, Maintenance, 01/10/21 10:34:00EDT, Tablet, [facility]/pharmacy #[id number], Partial fill upon patient request if the [...]
--- OUTSIDE RECORDS SUMMARY | 2024-04-01 01:25 | XMS_ITS | Continuity of Care Document ---
Author Organization [facility] Address [address] [place] [address]- Care Team Providers Care Handcrew Foreman Name Role Phone Ivanna Keller NP Primary Care Physician [facility] [place] Date(s): 03/06/21 - 04/05/21 [facility] [address] [place] [address]- Allergies, Adverse Reactions, Alerts No Known Medication Allergies Medications amLODIPine 10 mg oral tablet 1 tablet, By Mouth, Daily, # 90 tablet, 1 Refills, Maintenance, 02/23/21 9:38:00 EDT, [facility], 164.3, cm, 01/06/21 13:12:00 EDT, Height, 58.9, kg, 01/26/21 13:00:00 EDT, Dry Weight Start Date: 02/23/21 Status: Ordered calcium-vitamin D 600 mg-400 intl units oral tablet 1 tablet, By Mouth, 2 times a day, # 60 tablet, 11 Refills, Maintenance, 03/03/21 13:28:00 EDT, [facility], 30, TAKE ONE TABLET BY MOUTH two (2) times a day, 164.3, cm, 01/06/21 13:12:00 EDT, Height, 58.9, kg, 01/26/21 13:00:00 EDT, Dry Weight Start Date: 03/03/21 Status: Ordered cholestyramine 4 g/5.5 g oral powder for reconstitution = 4 Gm, By Mouth, 2 times a day, # 60 each, 3 Refills, Maintenance, 03/08/21 13:22:00 EDT, REC Powder, [place], [place] - [id number], Partial fill upon patient request if the prescription is for a schedule II opioid drug., 164.3, cm,... Start Date: 03/08/21 Status: Ordered cloNIDine 0.1 mg/24 hr transdermal film, extended release 1 patch, Topically, Daily, CHANGE DAILY ROTATE PLACEMENT, # 90 patch, 1 Refills, Maintenance, 01/17/21 9:19:00 EDT, Patch, [place], [place] - [id number], Partial fill upon patient request if the prescription is for a schedule II opioi... Start Date: 01/17/21 Stop Date: 07/16/21 Status: Ordered duloxetine 60 mg oral enteric coated capsule 1 capsule = 60 mg, By Mouth, Daily, # 30 capsule, 5 Refills, Maintenance, 01/22/21 14:24:00 EDT, ECCapsule, [place], [place] - [id number], Partial fill upon patient request if the prescription is for a schedule II opioid drug., 164.3... Start Date: 01/22/21 Stop Date: 07/21/21 Status: Ordered famotidine 40 mg oral tablet 1 tablet = 40 mg, By Mouth, 2 times a day, # 60 tablet, 2 Refills, Maintenance, 01/03/21 15:00:00 EDT, Tablet, [facility]/pharmacy #[id number], Partial fill upon patient request if the prescription is for a schedule II opioid drug., 164.3, cm, 01/03/21 14:30:00 ED... Start Date: 01/03/21 Stop Date: 04/03/21 Status: Ordered lisinopril 40 mg oral tablet 1 tablet, By Mouth, Daily, # 90 tablet, 4 Refills, [facility], 164.3, cm, 03/08/21 12:48:00 EDT, Height, 58.9, kg, 01/26/21 13:00:00 EDT, Dry Weight Start Date: 03/28/21 Status: Ordered montelukast 10 mg oral tablet 1, tablet, By Mouth, Daily, # 90 tablet, Refills 0, Route to Pharmacy Electronically, [facility], 164.3, cm, 03/08/21 12:48:00 EDT, Height, 58.9, kg, 01/26/21 13:00:00 EDT, Dry Weight Start Date: 03/28/21 Status: Ordered omeprazole 40 mg oral enteric coated capsule 1 capsule = 40 mg, By Mouth, Daily, # 90 capsule, 2 Refills, Maintenance, 01/26/21 14:22:00 EDT, ECCapsule, [place], [place] - [id number], Partial fill upon patient request if the prescription is for a schedule II opioid drug., 164.3... Start Date: 01/26/21 Status: Ordered omeprazole 40 mg oral enteric coated capsule 1 capsule = 40 mg, By Mouth, Daily, # 90 capsule, 3 Refills, Maintenance, 01/26/21 14:57:00 EDT, ECCapsule, [facility]/pharmacy #[id number], Partial fill upon [...] tablet, 0 Refills, Maintenance, 04/04/21 13:21:00 EDT, Tablet,[place], [place] - [id number], Par... Start Date: 04/04/21 Status: Ordered propranolol 20 mg oral tablet 1, tablet, By Mouth, 3 times a day, # 90 tablet, Refills 5, Tot. Refills 5, Maintenance, 03/15/21 10:28:00 EDT, Route to Pharmacy Electronically, [place], [place] - [id number], Please cancel rx done under Barbara Padilla MD., 164.3... Start Date: 03/15/21 Status: Ordered propylthiouracil 50 mg oral tablet 2 tablet = 100 mg, By Mouth, Every 8 hours, # 180 tablet, 6 Refills, Maintenance, 01/10/21 10:34:00EDT, [id number] Partial fill upon patient request [...]
--- OUTSIDE RECORDS SUMMARY | 2024-04-01 01:25 | XMS_ITS | Continuity of Care Document ---
Author Organization [facility] Address [address] [place] [address]- Care Team Providers Care Retail Area Manager Name Role Phone Not on Staff, PCP Primary Care Physician Unavail able [place] [facility] [place]s): 12/11/23 - 01/10/24 [facility] [address] [place] [id number] Allergies, Adverse Reactions, Alerts No Known Medication Allergies Medications Breo Ellipta 100 mcg-25 mcg/inh inhalation powder 1 puffs, Inhalation, Daily, # 60 Unknown, 8 Refills, [facility], 270, INHALE 1 PUFF BY MOUTH INTO THE lungs DAILY, 170, cm, 07/20/21 8:17:00 EST, Height, 66, kg, 07/19/21 13:21:00 EST, Dry Weight Start Date: 09/20/21 Status: Ordered calcium-vitamin D 600 mg-400 intl units oral tablet 1 tablet, By Mouth, 2 times a day, # 60 tablet, 2 Refills, Maintenance, 04/15/22 14:16:00 EDT, [place], [place] - [id number], 30, 1 tablet By Mouth 2 times a day, 170, cm, 01/18/22 12:36:00 EDT, Height, 66, kg, 07/19/21 13:21:00 EST,... Start Date: 04/15/22 Status: Ordered cloNIDine 0.1 mg/24 hr transdermal film, extended release 1 patch, Topically, Daily, CHANGE DAILY ROTATE PLACEMENT, # 90 patch, 1 Refills, Maintenance, 01/17/21 9:19:00 EDT, Patch, [place], [place] - [id number], Partial fill upon patient request if the [...] 01/22/21 14:24:00 EDT, ECCapsule, [facility], [place] - [id number], Partial fill upon patient request if the prescription is for a schedule II opioid drug., 164.3... Start Date: 01/22/21 Stop Date: 07/21/21 Status: Ordered famotidine 40 mg oral tablet 1 tablet = 40 mg, By Mouth, 2 times a day, # 60 tablet, 2 Refills, Maintenance, 01/03/21 15:00:00 EDT, Tablet, [facility]/pharmacy #[id number], Partial fill upon patient request if the prescription is for a schedule II opioid drug., 164.3, cm, 01/03/21 14:30:00 ED... Start Date: 01/03/21 Stop Date: 04/03/21 Status: Ordered ibuprofen 800 mg oral tablet 800 mg, 1, tablet, By Mouth, Daily, PRN, # 30 tablet, Refills 0, Tot. Refills 0, Maintenance, Pain , Moderate, 12/24/21 12:52:00 EDT, Route to Pharmacy Electronically, [place], [place] - [id number], Partial fill upon patient request i... Start Date: 12/24/21 Status: Ordered levothyroxine 0.112 mg oral tablet 1 tablet = 112 mcg, By Mouth, Daily, # 30 tablet, 3 Refills, Maintenance, 12/11/23 12:48:00 EDT, Tablet, [place], [place] - [id number], Partial fill upon patient request if the prescription is for a schedule II opioid drug., 170, cm,... Start Date: 12/11/23 Status: Ordered lisinopril 40 mg oral tablet 1 tablet, By Mouth, Daily, # 90 tablet, 0 Refills, 04/15/22 14:16:00 EDT, [facility] [id number], 170, cm, 01/18/22 12:36:00 EDT, Height, 66, kg, 07/19/21 13:21:00 EST, Dry Weight Start Date: 04/15/22 Status: Ordered montelukast 10 mg oral tablet 1, tablet, By Mouth, Daily, # 90 tablet, Refills 1, Tot. Refills 1, 04/15/22 14:16:00 EDT, Route toPharmac Electronically, [facility] [id number], 170, cm, 01/18/22 12:36:00EDT, Height, 66, kg, 07/19/21 13:21:00 EST, Dry Weight Start Date: 04/15/22 Status: Ordered omeprazole 40 mg oral enteric coated capsule 1 capsule = 40 mg, By Mouth, Daily, # 90 capsule, 2 Refills, Maintenance, 01/26/21 14:22:00 EDT, ECCapsule, [place], [place] - [id number], Partial fill upon patient request if the prescription is for a schedule II opioid drug., 164.3... Start Date: 01/26/21 Status: Ordered omeprazole 40 mg oral enteric coated capsule 1 capsule = 40 mg, By Mouth, Daily, # 90 capsule, 3 Refills, Maintenance, 01/26/21 14:57:00 EDT, ECCapsule, [facility]/pharmacy #[id number], Partial fill upon patient request if the prescription is for a schedule II opioid drug., 164.3, cm, 01/06/21 13:12:00 EDT,... Start Date: 01/26/21 Status: Ordered propranolol 20 mg oral tablet 1, tablet, By Mouth, 3 times a day, # 90 tablet, Refills 8, Route to Pharmacy Electronically, [facility], 170, cm, 07/20/21 8:17:00 EST, Height, 66, kg, 07/19/21 13:21:00 EST, Dry Weight Start Date: 09/20/21 Status: Ordered spironolactone 25 mg oral tablet 1, tablet, By Mouth, Daily, # 90 tablet, Refills 0, Tot. Refills 0, 04/15/22 14:16:00 EDT, Route toPharmacy Electronically, [facility] - [place], [place] - [id number], 170, cm, 01/18/22 12:36:00EDT, Height, 66, kg, [...] Persons Name: FLACO DALAL Address: [place] [address]
--- OUTSIDE RECORDS SUMMARY | 2024-04-01 01:25 | XMS_ITS | Continuity of Care Document ---
Author Organization [facility] Adult Address [address] [place] [address]- Care Team Providers Care Bead Wrapper Name Role Phone Ivanna Keller NP Primary Care Physician Encounter [facility] [place] Date(s): 02/10/21 - 03/12/21 [facility] [address] [place] [address]- Allergies, Adverse Reactions, Alerts No Known Medication Allergies Medications amLODIPine 10 mg oral tablet 1 tablet, By Mouth, Daily, # 90 tablet, 1 Refills, Maintenance, 02/23/21 9:38:00 EDT, [facility], 164.3, cm, 01/06/21 13:12:00 EDT, Height, 58.9, kg, 01/26/21 13:00:00 EDT, Dry Weight Start Date: 02/23/21 Status: Ordered calcium-vitamin D 600 mg-400 intl units oral tablet 1 tablet, By Mouth, 2 times a day, # 60 tablet, 11 Refills, Maintenance, 03/03/21 13:28:00 EDT, [facility], 30, TAKE ONE TABLET BY MOUTH two (2) times a day, 164.3, cm, 01/06/21 13:12:00 EDT, Height, 58.9, kg, 01/26/21 13:00:00 EDT, Dry Weight Start Date: 03/03/21 Status: Ordered cholestyramine 4 g/5.5 g oral powder for reconstitution = 4 Gm, By Mouth, 2 times a day, # 60 each, 3 Refills, Maintenance, 03/08/21 13:22:00 EDT, REC Powder, [place], [place] - [id number], Partial fill upon patient request if the prescription is for a schedule II opioid drug., 164.3, cm,... Start Date: 03/08/21 Status: Ordered cloNIDine 0.1 mg/24 hr transdermal film, extended release 1 patch, Topically, Daily, CHANGE DAILY ROTATE PLACEMENT, # 90 patch, 1 Refills, Maintenance, 01/17/21 9:19:00 EDT, Patch, [facility] [id number], Partial fill upon patient request if the prescription is for a schedule II opioi... Start Date: 01/17/21 Stop Date: 07/16/21 Status: Ordered duloxetine 60 mg oral enteric coated capsule 1 capsule = 60 mg, By Mouth, Daily, # 30 capsule, 5 Refills, Maintenance, 01/22/21 14:24:00 EDT, ECCapsule, [place], [place] - [id number], Partial fill upon patient request if the prescription is for a schedule II opioid drug., 164.3... Start Date: 01/22/21 Stop Date: 07/21/21 Status: Ordered famotidine 40 mg oral tablet 1 tablet = 40 mg, By Mouth, 2 times a day, # 60 tablet, 2 Refills, Maintenance, 01/03/21 15:00:00 EDT, Tablet, [facility]/pharmacy #[id number], Partial fill upon patient request [...] 2 Refills, Maintenance, 01/26/21 14:22:00 EDT, ECCapsule, [place], [place] - [id number], Partial fill upon patient request if the prescription is for a schedule II opioid drug., 164.3... Start Date: 01/26/21 Status: Ordered omeprazole 40 mg oral enteric coated capsule 1 capsule = 40 mg, By Mouth, Daily, # 90 capsule, 3 Refills, Maintenance, 01/26/21 14:57:00 EDT, ECCapsule, [facility]/pharmacy #[id number], Partial fill upon patient request if the prescription is for a schedule II opioid drug., 164.3, cm, 01/06/21 13:12:00 EDT,... Start Date: 01/26/21 Status: Ordered predniSONE 20 mg oral tablet 2 tablet = 40 mg, By Mouth, Daily, for 14 days, # 28 tablet, 3 Refills, Acute 04/27/21 12:54:00 EDT, 03/02/21 12:54:00 EDT, Tablet, [place], [place] - [id number], Partial fill upon patient request if the prescription is for a schedule... Start Date: 03/02/21 Stop Date: 04/27/21 Status: Ordered propranolol 20 mg oral tablet 20 mg, 1, tablet, By Mouth, 3 times a day, # 90 tablet, Refills 0, Tot. Refills 0, Maintenance, 02/10/21 14:49:00 EDT, Route to Pharmacy Electronically, [place], [place] - [id number], Partial fill upon patient request if the prescript... Start Date: 02/10/21 Stop Date: 03/12/21 Status: Ordered propylthiouracil 50 mg oral tablet 2 tablet = 100 mg, By Mouth, Every 8 hours, # 180 tablet, 6 Refills, Maintenance, 01/10/21 10:34:00EDT, Tablet, [facility]/pharmacy #[id number], Partial fill upon patient request [...]
--- OUTSIDE RECORDS SUMMARY | 2024-04-01 01:25 | XMS_ITS | Continuity of Care Document ---
Author Organization [facility] Address [address] [place] [address]- Care Team Providers Care Jr. Java Developer Name Role Phone Ivanna Keller NP Primary Care Physician Encounter [facility] [place] Date(s): 12/25/20 - 01/24/21 [facility] [address] [place] [address] Allergies, Adverse Reactions, Alerts No Known Medication Allergies Medications amLODIPine 10 mg oral tablet 1 tablet = 10 mg, By Mouth, Daily, # 90 tablet, 1 Refills, Maintenance, 07/21/20 9:21:00 EST, Tablet, [place], [place] - [id number], Partial fill upon patient request if the [...] 1 Refills, Maintenance, 01/17/21 9:19:00 EDT, Patch, [place], [place] - [id number], Partial fill upon patient request if the prescription is for a schedule II opioi... Start Date: 01/17/21 Stop Date: 07/16/21 Status: Ordered Colace sodium 100 mg oral capsule 100 mg, 1, capsule, By Mouth, 2 times a day, # 180 capsule, Refills 0, Tot. Refills 0, Maintenance,10/28/20 15:36:00 EDT, [id number] Partial fill upon patient request if the prescription is for a schedule II... Start Date: 10/28/20 Stop Date: 01/26/21 Status: Ordered duloxetine 60 mg oral enteric coated capsule 1 capsule = 60 mg, By Mouth, Daily, # 30 capsule, 5 Refills, Maintenance, 01/22/21 14:24:00 EDT, ECCapsule, [place], [place] - [id number], Partial fill upon patient request if the [...] 1 Refills, Maintenance, 06/27/20 9:26:00 EST, Solution, [place], [place] - [id number], Partial fill upon patient request, 164.3, cm, [...] tablet, 6 Refills, Maintenance, 01/10/21 10:34:00EDT, Tablet, [facility]/pharmacy #[id number], Partial fill upon patient request if the [...]
--- OUTSIDE RECORDS SUMMARY | 2024-04-01 01:25 | XMS_ITS | Continuity of Care Document ---
Author Organization [facility] Adult Address [address] [place] [address]- Care Team Providers Care Thread Spooler Name Role Phone Ivanna Keller NP Primary Care Physician [id number]): [facility]16[facility]20 - 12/23/20 [facility] [address] [place] [address]- Encounter Diagnosis Hyperthyroidism(Discharge Diagnosis) - 12/16/20 Attending Physician: Ivanna Keller NP Allergies, Adverse Reactions, Alerts No Known Medication Allergies Medications amLODIPine 10 mg oral tablet 1 tablet = 10 mg, By Mouth, Daily, # 90 tablet, 1 Refills, Maintenance, 07/21/20 9:21:00 EST, Tablet, [place], [place] - [id number], Partial fill upon patient request if the [...] 1 Refills, Maintenance, 07/21/20 9:19:00 EST, Patch, [place], [place] - [id number], Partial fill upon patient request if the prescription is for a schedule II opioi... Start Date: 07/21/20 Stop Date: 01/17/21 Status: Ordered Colace sodium 100 mg oral capsule 100 mg, 1, capsule, By Mouth, 2 times a day, # 180 capsule, Refills 0, Tot. Refills 0, Maintenance,10/28/20 15:36:00 EDT, Route to Pharmacy Electronically, [facility] #[id number], Partial fill upon patient request if the prescription is for a schedule II... Start Date: 10/28/20 Stop Date: 01/26/21 Status: Ordered duloxetine 60 mg oral enteric coated capsule 1 capsule = 60 mg, By Mouth, Daily, # 30 capsule, 1 Refills, Maintenance, 11/23/20 14:24:00 EDT, ECCapsule, [place], [place] - [id number], Partial fill upon patient request if the [...] 12/07/20 13:13:00 EDT, Route to Pharmacy Electronically, [facility], Partial fill upon patient request if the prescription is for a schedule... Start Date: 12/07/20 Status: Ordered Prolia 60 mg/mL subcutaneous solution See Instructions, 1 mL Subcutaneous Injection Every 6 months 3 days, # 1 each, 1 Refills, Maintenance, 06/27/20 9:26:00 EST, Solution, [place], [place] - [id number], Partial fill upon patient request, 164.3, cm, 06/15/20 14:33:00 EST,... Start Date: 06/27/20 Status: Ordered propranolol 20 mg oral tablet 20 mg, 1, tablet, By Mouth, 3 times a day, # 90 tablet, Refills 0, Tot. Refills 0, Maintenance, 12/07/20 13:13:00 EDT, Route to Pharmacy Electronically, [facility], Partial fill upon patient [...] Dates Health Status Cl inical Service Informant Hyperthyroidism Discharge Diagnosis 12/16/20 Vital Signs Most recent to oldest [Reference Range]: 1 Height 164.3 cm (12/16/20 12:31 PM) Weight 63.6 kg (12/16/20 12:31 PM) Body Mass Index [18.5-24.99] 23.56 (12/16/20 12:31 PM) Blood pressure sites Arm, left (12/16/20 12:31 PM) Temperature Route Oral (12/16/20 12:31 PM) Weight Obtained Via Patient lift hanging scale (12/16/20 12:31 PM) Social History Social History Type Response Tobacco Use: 4 or less cigar ettes(less than 1/4 pack)/day in last 30 days. Other: 3-3 packs a day for about 30-40. Now 3-4 day. Sex
--- OUTSIDE RECORDS SUMMARY | 2024-04-01 01:25 | XMS_ITS | Continuity of Care Document ---
Author Organization [facility] and Diabetes Address [address] [place] [id number]- Care Team Providers Care Record Press Operator Name Role Phone Not on Staff, PCP Primary Care Physician Unavail able Encounter [facility] Date(s): 07/08/23 - 08/07/23 [facility] [address] [place] [address] Allergies, Adverse Reactions, Alerts No Known Medication Allergies Medications Breo Ellipta 100 mcg-25 mcg/inh inhalation powder 1 puffs, Inhalation, Daily, # 60 Unknown, 8 Refills, [facility], [facility], INHALE 1 PUFF BY MOUTH INTO THE lungs DAILY, 170, cm, 07/20/21 8:17:00 EST, Height, 66, kg, 07/19/21 13:21:00 EST, Dry Weight Start Date: 09/20/21 Status: Ordered calcium-vitamin D 600 mg-400 intl units oral tablet 1 tablet, By Mouth, 2 times a day, # 60 tablet, 2 Refills, Maintenance, 04/15/22 14:16:00 EDT, [place], [place] - [id number], 30, 1 tablet By Mouth 2 times a day, 170, cm, 01/18/22 12:36:00 EDT, Height, 66, kg, 07/19/21 13:21:00 EST,... Start Date: 04/15/22 Status: Ordered cloNIDine 0.1 mg/24 hr transdermal film, extended release 1 patch, Topically, Daily, CHANGE DAILY ROTATE PLACEMENT, # 90 patch, 1 Refills, Maintenance, 01/17/21 9:19:00 EDT, Patch, [place], [place] - [id number], Partial fill upon patient request if the [...] 5 Refills, Maintenance, 01/22/21 14:24:00 EDT, ECCapsule, [facility] [id number], Partial fill upon patient request if the [...] 12/24/21 12:52:00 EDT, Route to Pharmacy Electronically, [facility] [id number], Partial fill upon patient request i... Start Date: 12/24/21 Status: Ordered levothyroxine 0.112 mg oral tablet 1 tablet = 112 mcg, By Mouth, Daily, # 30 tablet, 5 Refills, Maintenance, 04/03/23 6:09:00 EDT, Tablet, [facility] [id number], Partial fill upon patient request if the prescription is for a schedule II opioid drug., 170, cm, 0... Start Date: 04/03/23 Status: Ordered lisinopril 40 mg oral tablet 1 tablet, By Mouth, Daily, # 90 tablet, 0 Refills, 04/15/22 14:16:00 EDT, [place], [place] - [id number], 170, cm, 01/18/22 12:36:00 EDT, Height, 66, kg, 07/19/21 13:21:00 EST, Dry Weight Start Date: 04/15/22 Status: Ordered montelukast 10 mg oral tablet 1, tablet, By Mouth, Daily, # 90 tablet, Refills 1, Tot. Refills 1, 04/15/22 14:16:00 EDT, Route toPharmacy Electronically, [facility] [id number], 170, cm, 01/18/22 12:36:00EDT, Height, 66, kg, 07/19/21 13:21:00 EST, Dry Weight Start Date: 04/15/22 Status: Ordered omeprazole 40 mg oral enteric coated capsule 1 capsule = 40 mg, By Mouth, Daily, # 90 capsule, 2 Refills, Maintenance, 01/26/21 14:22:00 EDT, ECCsophie, [place], [place] - [id number], Partial fill upon patient request if the prescription is for a schedule II opioid drug., 164.3... Start Date: 01/26/21 Status: Ordered omeprazole 40 mg oral enteric coated capsule 1 capsule = 40 mg, By Mouth, Daily, # 90 capsule, 3 Refills, Maintenance, 01/26/21 14:57:00 [facility], [id number], Partial fill upon patient request if the prescription is for a schedule II opioid drug., 164.3, cm, 01/06/21 13:12:00 EDT,... Start Date: 01/26/21 Status: Ordered propranolol 20 mg oral tablet 1, tablet, By Mouth, 3 times a day, # 90 tablet, Refills 8, Route to Pharmacy Electronically, [facility], 170, cm, 07/20/21 8:17:00 EST, Height, 66, kg, 07/19/21 13:21:00 EST, Dry Weight Start Date: 09/20/21 Status: Ordered spironolactone 25 mg oral tablet 1, tablet, By Mouth, Daily, # 90 tablet, Refills 0, Tot. Refills 0, 04/15/22 14:16:00 EDT, Route toPharmacy Electronically, [facility] [place], [place] - [id number], 170, cm, 01/18/22 12:36:00EDT, Height, 66, kg, [...] Team Personnel Name: Seun Christian RN Position: [facility] RN Member Role: Primary Care Nurse Name: Not on Staff, PCP Position: [facility] Physician (General Medicine) Member Role: PCP Care Team Related Persons Name: DALALFLACO CORTEZ Address: [place] [address]
--- OUTSIDE RECORDS SUMMARY | 2024-04-01 01:25 | XMS_ITS | Continuity of Care Document ---
Author Organization [facility] Endocrinolo gy and Diabetes Address [address] [place] [address]- Care Team Providers Care Chick Room Supervisor Name Role Phone Not on Staff, PCP Primary Care Physician Unavail able Encounter [facility] Date(s): 02/08/23 - 03/10/23 [facility] Endocrinology and Diabetes [address] [place] [id number] Allergies, Adverse Reactions, Alerts No Known Medication Allergies Medications Breo Ellipta 100 mcg-25 mcg/inh inhalation powder 1 puffs, Inhalation, Daily, # 60 Unknown, 8 Refills, [facility], [facility], INHALE 1 PUFF BY MOUTH INTO THE lungs DAILY, 170, cm, 07/20/21 8:17:00 EST, Height, 66, kg, 07/19/21 13:21:00 EST, Dry Weight Start Date: 09/20/21 Status: Ordered calcium-vitamin D 600 mg-400 intl units oral tablet 1 tablet, By Mouth, 2 times a day, # 60 tablet, 2 Refills, Maintenance, 04/15/22 14:16:00 EDT, [place], [place] - [id number], 30, 1 tablet By Mouth 2 times a day, 170, cm, 01/18/22 12:36:00 EDT, Height, 66, kg, 07/19/21 13:21:00 EST,... Start Date: 04/15/22 Status: Ordered cloNIDine 0.1 mg/24 hr transdermal film, extended release 1 patch, Topically, Daily, CHANGE DAILY ROTATE PLACEMENT, # 90 patch, 1 Refills, Maintenance, 01/17/21 9:19:00 EDT, Patch, [place], [place] - [id number], Partial fill upon patient request if the [...] 5 Refills, Maintenance, 01/22/21 14:24:00 EDT, ECCapsule, [place], [place] - [id number], Partial fill upon patient request if the [...] 12/24/21 12:52:00 EDT, Route to Pharmacy Electronically, [facility] [id number], Partial fill upon patient request i... Start Date: 12/24/21 Status: Ordered levothyroxine 0.112 mg oral tablet 1 tablet = 112 mcg, By Mouth, Daily, # 30 tablet, 5 Refills, Maintenance, 10/05/22 12:13:00 EST, Tablet, [facility] [id number], Partial fill upon patient request if the prescription is for a schedule II opioid drug., 170, cm,... Start Date: 10/05/22 Status: Ordered lisinopril 40 mg oral tablet 1 tablet, By Mouth, Daily, # 90 tablet, 0 Refills, 04/15/22 14:16:00 EDT, [place], [place] - [id number], 170, cm, 01/18/22 12:36:00 EDT, Height, 66, kg, 07/19/21 13:21:00 EST, Dry Weight Start Date: 04/15/22 Status: Ordered montelukast 10 mg oral tablet 1, tablet, By Mouth, Daily, # 90 tablet, Refills 1, Tot. Refills 1, 04/15/22 14:16:00 EDT, Route toPharmacy Electronically, [place], [place] - [id number], 170, cm, 01/18/22 12:36:00EDT, Height, 66, kg, 07/19/21 13:21:00 EST, Dry Weight Start Date: 04/15/22 Status: Ordered omeprazole 40 mg oral enteric coated capsule 1 capsule = 40 mg, By Mouth, Daily, # 90 capsule, 2 Refills, Maintenance, 01/26/21 14:22:00 EDT, ECCapsule, [place], [place] - [id number], Partial fill upon patient request if the prescription is for a schedule II opioid drug., 164.3... Start Date: 01/26/21 Status: Ordered omeprazole 40 mg oral enteric coated capsule 1 capsule = 40 mg, By Mouth, Daily, # 90 capsule, 3 Refills, Maintenance, 01/26/21 14:57:00 EDT, ECCsophie, [facility]/pharmacy #[id number], Partial fill upon patient request if the prescription is for a schedule II opioid drug., 164.3, cm, 01/06/21 13:12:00 EDT,... Start Date: 01/26/21 Status: Ordered propranolol 20 mg oral tablet 1, tablet, By Mouth, 3 times a day, # 90 tablet, Refills 8, Route to Pharmacy Electronically, [facility], 170, cm, 07/20/21 8:17:00 EST, Height, 66, kg, 07/19/21 13:21:00 EST, Dry Weight Start Date: 09/20/21 Status: Ordered spironolactone 25 mg oral tablet 1, tablet, By Mouth, Daily, # 90 tablet, Refills 0, Tot. Refills 0, 04/15/22 14:16:00 EDT, Route toPharmacy Electronically, [facility] - [place], [place] - [id number], 170, cm, 01/18/22 12:36:00EDT, Height, 66, kg, [...] Team Personnel Name: Seun Christian RN Position: [facility] RN Member Role: Primary Care Nurse Name: Not on Staff, PCP Position: [facility] Physician (General Medicine) Member Role: PCP Care Team Related Persons Name: FLACO DALAL Address: [place] [address]
--- OUTSIDE RECORDS SUMMARY | 2024-04-01 01:25 | XMS_ITS | Continuity of Care Document ---
Author Organization [facility] Adult Address [address] [place] [address]- Care Team Providers Care Agricultural Crop Farm Manager Name Role Phone Ivanna Keller NP Primary Care Physician [phone] Encounter [facility] Date(s): 09/22/21 - 10/22/21 [facility] Adult [address] [place] [address]- Allergies, Adverse Reactions, Alerts No Known Medication Allergies Medications Breo Ellipta 100 mcg-25 mcg/inh inhalation powder 1 puffs, Inhalation, Daily, # 60 Unknown, 8 Refills, [facility], 270, INHALE 1 PUFF BY MOUTH INTO THE lungs DAILY, 170, cm, 07/20/21 8:17:00 EST, Height, 66, kg, 07/19/21 13:21:00 EST, Dry Weight Start Date: 09/20/21 Status: Ordered calcium-vitamin D 600 mg-400 intl units oral tablet 1 tablet, By Mouth, 2 times a day, # 60 tablet, 11 Refills, Maintenance, 03/03/21 13:28:00 EDT, [facility], 30, TAKE ONE TABLET BY MOUTH two (2) times a day, 164.3, cm, 01/06/21 13:12:00 EDT, Height, 58.9, kg, 01/26/21 13:00:00 EDT, Dry Weight Start Date: 03/03/21 Status: Ordered cloNIDine 0.1 mg/24 hr transdermal film, extended release 1 patch, Topically, Daily, CHANGE DAILY ROTATE PLACEMENT, # 90 patch, 1 Refills, Maintenance, 01/17/21 9:19:00 EDT, Patch, [facility] [place], [place] - [id number], Partial fill upon patient request if the [...] Refills, Maintenance, 01/22/21 14:24:00 EDT, ECCapsule, [place], [place] - [id number], Partial fill upon patient request if the prescription is for a schedule II opioid drug., 164.3... Start Date: 01/22/21 Stop Date: 07/21/21 Status: Ordered famotidine 40 mg oral tablet 1 tablet = 40 mg, By Mouth, 2 times a day, # 60 tablet, 2 Refills, Maintenance, 01/03/21 15:00:00 EDT, Tablet, [facility]/pharmacy #[id number], Partial fill upon patient request if the prescription is for a schedule II opioid drug., 164.3, cm, 01/03/21 14:30:00 ED... Start Date: 01/03/21 Stop Date: 04/03/21 Status: Ordered lisinopril 40 mg oral tablet 1 tablet, By Mouth, Daily, # 90 tablet, 4 Refills, [facility], 164.3, cm, 03/08/21 12:48:00 EDT, Height, 58.9, kg, 01/26/21 13:00:00 EDT, Dry Weight Start Date: 03/28/21 Status: Ordered montelukast 10 mg oral tablet 1, tablet, By Mouth, Daily, # 90 tablet, Refills 1, Route to Pharmacy Electronically, [facility], 168, cm, 05/31/21 13:35:00 EDT, Height, 58.9, kg, 01/26/21 13:00:00 EDT, Dry Weight Start Date: 06/16/21 Status: Ordered omeprazole 40 mg oral enteric coated capsule 1 capsule = 40 mg, By Mouth, Daily, # 90 capsule, 2 Refills, Maintenance, 01/26/21 14:22:00 EDT, Shalini, [facility] [place], [place] - [id number], Partial fill upon patient request if the prescription is for a schedule II opioid drug., 164.3... Start Date: 01/26/21 Status: Ordered omeprazole 40 mg oral enteric coated capsule 1 capsule = 40 mg, By Mouth, Daily, # 90 capsule, 3 Refills, Maintenance, 01/26/21 14:57:00 EDT, [id number], Partial fill upon patient request if the prescription is for a schedule II opioid drug., 164.3, cm, 01/06/21 13:12:00 EDT,... Start Date: 01/26/21 Status: Ordered propranolol 20 mg oral tablet 1, tablet, By Mouth, 3 times a day, # 90 tablet, Refills 8, Route to Pharmacy Electronically, [facility], 170, cm, 07/20/21 8:17:00 EST, Height, 66, kg, 07/19/21 13:21:00 EST, Dry Weight Start Date: 09/20/21 Status: Ordered spironolactone 25 mg oral tablet 1, tablet, By Mouth, Daily, # 90 tablet, Refills 0, Route to Pharmacy Electronically, [facility], 170, cm, 07/20/21 8:17:00 EST, Height, [...]
--- OUTSIDE RECORDS SUMMARY | 2024-04-01 01:25 | XMS_ITS | Continuity of Care Document ---
Author Organization [facility] Adult Address [address] [place] [address]- Care Team Providers Care Mail Distribution Clerk Name Role Phone Ivanna Keller NP Primary Care Physician [phone] Encounter [facility] Date(s): 05/11/21 - 06/10/21 [facility] Adult [address] [place] [address]- Allergies, Adverse Reactions, Alerts No Known Medication [...] 13:22:00 EDT, REC Powder, [facility] [place], [place] - [id number], Partial fill upon patient request if the prescription is for a schedule II opioid drug., 164.3, cm,... Start Date: 03/08/21 Status: Ordered cloNIDine 0.1 mg/24 hr transdermal film, extended release 1 patch, Topically, Daily, CHANGE DAILY ROTATE PLACEMENT, # 90 patch, 1 Refills, Maintenance, 01/17/21 9:19:00 EDT, Patch, [place], [place] - [id number], Partial fill upon patient request if the [...] 5 Refills, Maintenance, 01/22/21 14:24:00 EDT, ECCapsule, [place], [place] - [id number], Partial fill upon patient request if the prescription is for a schedule II opioid drug., 164.3... Start Date: 01/22/21 Stop Date: 07/21/21 Status: Ordered famotidine 40 mg oral tablet 1 tablet = 40 mg, By Mouth, 2 times a day, # 60 tablet, 2 Refills, Maintenance, 01/03/21 15:00:00 EDT, Tablet, [facility]/pharmacy #[id number], Partial fill upon patient request [...] Refills 0, Route to Pharmacy Electronically, [facility], 164.3, cm, 03/08/21 12:48:00 EDT, Height, 58.9, kg, 01/26/21 13:00:00 EDT, Dry Weight Start Date: 03/28/21 Status: Ordered omeprazole 40 mg oral enteric coated capsule 1 capsule = 40 mg, By Mouth, Daily, # 90 capsule, 2 Refills, Maintenance, 01/26/21 14:22:00 EDT, ECCapsule, [place], [place] - [id number], Partial fill upon patient request if the prescription is for a schedule II opioid drug., 164.3... Start Date: 01/26/21 Status: Ordered omeprazole 40 mg oral enteric coated capsule 1 capsule = 40 mg, By Mouth, Daily, # 90 capsule, 3 Refills, Maintenance, 01/26/21 14:57:00 EDT, ECCapsule, [facility]/pharmacy #[id number], Partial fill upon patient request [...] tablet, 0 Refills, Maintenance, 04/04/21 13:21:00 EDT, Tablet,[place], [place] - [id number], Par... Start Date: 04/04/21 Status: Ordered propranolol 20 mg oral tablet 1, tablet, By Mouth, 3 times a day, # 90 tablet, Refills 5, Tot. Refills 5, Maintenance, 03/15/21 10:28:00 EDT, Route to Pharmacy Electronically, [facility] [id number], Please cancel rx done under Barbara Padilla MD., 164.3... Start Date: 03/15/21 Status: Ordered propylthiouracil 50 mg oral tablet 2 tablet = 100 mg, By Mouth, Every 8 hours, # 180 tablet, 6 Refills, Maintenance, 01/10/21 10:34:00EDT, Tablet, [facility]/pharmacy #[id number], Partial fill upon patient request if the prescription is for a schedule II opioid drug., 164.3, cm, 01/06/21 13:12:00... Start Date: 01/10/21 Stop Date: 08/08/21 Status: Ordered spironolactone 25 mg oral tablet 25 mg, 1, tablet, By Mouth, Daily, # 30 tablet, Refills 0, Tot. Refills 0, Maintenance, 05/31/21 13:38:00 EDT, Route to Pharmacy Electronically, [place], [place] - [id number], Partial fill upon patient request if the [...]
--- OUTSIDE RECORDS SUMMARY | 2024-04-01 01:25 | XMS_ITS | Continuity of Care Document ---
Author Organization [facility] Adult Address [address] [place] [address]- Care Team Providers Care Manager Medical Affairs Name Role Phone Ivanna Keller NP Primary Care Physician [phone] [id number] 08[facility]29[facility] - 09/05/20 [facility] [address] [place] [address]- Encounter Diagnosis Osteoporosis(Discharge Diagnosis) - 08/29/20 Attending Physician: Ivanna Keller NP Allergies, Adverse Reactions, Alerts No Known Medication Allergies Medications amLODIPine 10 mg oral tablet 1 tablet = 10 mg, By Mouth, Daily, # 90 tablet, 1 Refills, Maintenance, 07/21/20 9:21:00 EST, Tablet, [place], [place] - [id number], Partial fill upon patient request if the [...] 1 Refills, Maintenance, 07/21/20 9:19:00 EST, Patch, [place], [place] - [id number], Partial fill upon patient request if the [...] 1 Refills, Maintenance, 06/27/20 9:26:00 EST, Solution, [facility] [place], [place] - [id number], Partial fill upon patient request, 164.3, cm, 06/15/20 14:33:00 EST,... Start Date: 06/27/20 Status: Ordered Problem List Condition Effective Dates Status Health Status Inform ant Anxiety(Confirmed) Active Blindness(Confirmed) Active COPD (chronic obstructive pu lmonary disease)(Confirmed) Active Depression(Confirmed) Active HLD (hyperlipidemia)(Confirmed) Active HTN (hypertension)(Confirmed) Active Osteoporosis(Confirmed) Active Vitamin D deficiency(Confirmed) Active Diagnosis Diagnosis Type Effective Dates Health Status Cl inical Service Informant Osteoporosis Discharge Diagnosis 08/29/20 Vital Signs Most recent to oldest [Reference Range]: 1 Height 164.3 cm (08/29/20 8:40 AM) Social History Social History Type Response Tobacco Use: 4 or less cigar ettes(less than 1/4 pack)/day in last 30 days. Other: 3-3 packs a day for about 30-40. Now 3-4 day. Sex
--- OUTSIDE RECORDS SUMMARY | 2024-04-01 01:25 | XMS_ITS | Continuity of Care Document ---
Author Organization [facility] Adult Address [address] [place] [address]- Care Team Providers Care First Aid Trainer Name Role Phone Krishna TRAN, Ivanna Primary Care Physician [phone] Encounter [facility] [place] Date(s): 05/31/21 - 09/01/21 [facility] [address] [place] [address]- Attending Physician: Ivanna Keller NP Allergies, Adverse [...] 01/17/21 9:19:00 EDT, Patch, [facility] - [place], [place] - [id number], Partial fill upon patient request if the [...] 5 Refills, Maintenance, 01/22/21 14:24:00 EDT, ECCapsule, [place], [place] - [id number], Partial fill upon patient request if the prescription is for a schedule II opioid drug., 164.3... Start Date: 01/22/21 Stop Date: 07/21/21 Status: Ordered famotidine 40 mg oral tablet 1 tablet = 40 mg, By Mouth, 2 times a day, # 60 tablet, 2 Refills, Maintenance, 01/03/21 15:00:00 EDT, Tablet, [facility]/pharmacy #[id number], Partial fill upon patient request if the prescription is for a schedule II opioid drug., 164.3, cm, 01/03/21 14:30:00 ED... Start Date: 01/03/21 Stop Date: 04/03/21 Status: Ordered lisinopril 40 mg oral tablet 1 tablet, By Mouth, Daily, # 90 tablet, 4 Refills, [facility], 164.3, cm, 03/08/21 12:48:00 EDT, Height, 58.9, kg, 01/26/21 13:00:00 EDT, Dry Weight Start Date: 03/28/21 Status: Ordered montelukast 10 mg oral tablet 1, tablet, By Mouth, Daily, # 90 tablet, Refills 1, Route to Pharmacy Electronically, [facility], 168, cm, 05/31/21 13:35:00 EDT, Height, 58.9, kg, 01/26/21 13:00:00 EDT, Dry Weight Start Date: 06/16/21 Status: Ordered omeprazole 40 mg oral enteric coated capsule 1 capsule = 40 mg, By Mouth, Daily, # 90 capsule, 2 Refills, Maintenance, 01/26/21 14:22:00 EDT, ECCapsule, [place], [place] - [id number], Partial fill upon patient request if the prescription is for a schedule II opioid drug., 164.3... Start Date: 01/26/21 Status: Ordered omeprazole 40 mg oral enteric coated capsule 1 capsule = 40 mg, By Mouth, Daily, # 90 capsule, 3 Refills, Maintenance, 01/26/21 14:57:00 EDT, ECCapsule, [facility]/pharmacy #[id number], Partial fill upon patient request if the prescription is for a schedule II opioid drug., 164.3, cm, 01/06/21 13:12:00 EDT,... Start Date: 01/26/21 Status: Ordered propranolol 20 mg oral tablet 1, tablet, By Mouth, 3 times a day, # 90 tablet, Refills 5, Tot. Refills 5, Maintenance, 03/15/21 10:28:00 EDT, Route to Pharmacy Electronically, [facility] [id number], Please cancel rx done under Barbara Padilla MD., 164.3... Start Date: 03/15/21 Status: Ordered spironolactone 25 mg oral tablet 25 mg, 1, tablet, By Mouth, Daily, # 90 tablet, Refills 0, Tot. Refills 0, Maintenance, 06/21/21 10:23:00 EST, Route to Pharmacy Electronically, [place], [place] - [id number], Partial fill upon patient request if the [...]
--- OUTSIDE RECORDS SUMMARY | 2024-04-01 01:25 | XMS_ITS | Continuity of Care Document ---
Author Organization [facility] ter Address [address] [place] [address]- Care Team Providers Care Color Weigher Name Role Phone Krishna TRAN, Ivanna Primary Care Physician [phone] [place] [facility] Date(s): 12/06/20 - 12/07/[address] [address] [[email or web address] Discharge Disposition: A-D/C Home Attending Physician: Annetta JIMENES, Kenia Osborn Admitting Physician: Miko JIMENES, Scarlet Norton Referring Physician: Not on Staff, Referring MD Allergies, Adverse Reactions, Alerts No Known Medication Allergies Medications amLODIPine 10 mg oral tablet 1 tablet = 10 mg, By Mouth, Daily, # 90 tablet, 1 Refills, Maintenance, 07/21/20 9:21:00 EST, Tablet, [place], [place] - [phone], Partial fill upon patient request if the [...] 1 Refills, Maintenance, 07/21/20 9:19:00 EST, Patch, [place], [place] - [phone], Partial fill upon patient request if the prescription is for a schedule II opioi... Start Date: 07/21/20 Stop Date: 01/17/21 Status: Ordered Colace sodium 100 mg oral capsule 100 mg, 1, capsule, By Mouth, 2 times a day, # 180 capsule, Refills 0, Tot. Refills 0, Maintenance,10/28/20 15:36:00 EDT, Route to Pharmacy Electronically, [facility] #[id number], Partial fill upon patient request if the prescription is for a schedule II... Start Date: 10/28/20 Stop Date: 01/26/21 Status: Ordered duloxetine 60 mg oral enteric coated capsule 1 capsule = 60 mg, By Mouth, Daily, # 30 capsule, 1 Refills, Maintenance, 11/23/20 14:24:00 EDT, [place] [phone], Partial fill upon patient request if the [...] 12/07/20 13:13:00 EDT, Route to Pharmacy Electronically, [facility], Partial fill upon patient request if the prescription is for a schedule... Start Date: 12/07/20 Status: Ordered Prolia 60 mg/mL subcutaneous solution See Instructions, 1 mL Subcutaneous Injection Every 6 months 3 days, # 1 each, 1 Refills, Maintenance, 06/27/20 9:26:00 EST, Solution, [place], [place] - [id number], Partial fill upon patient request, 164.3, cm, 06/15/20 14:33:00 EST,... Start Date: 06/27/20 Status: Ordered propranolol 20 mg oral tablet 20 mg, 1, tablet, By Mouth, 3 times a day, # 90 tablet, Refills 0, Tot. Refills 0, Maintenance, 12/07/20 13:13:00 EDT, Route to Pharmacy Electronically, [facility], Partial fill upon patient request if [...] Exam Date Time Procedure Performing Provider Status 12/07/20 4:59 AM Chest 2 Views Frontal and Lat Joseph Schmidt; Dandy (Verified) Notes: (Chest 2 Views Frontal and Lat) Reason For Exam: Cough RESULT: Chest 2 Views Frontal and Lat Chest 2 Views Frontal and Lat Reason: Cough; Clinical Question(s): Lung Ca COMPARISON: None. FINDINGS: LINES AND TUBES: None. LUNGS AND PLEURA: Clear lungs. Normal pulmonary vascularity. No pleural effusion. No pneumothorax. HEART, MEDIASTINUM AND HAYDE: Heart is normal in size. Normal upper mediastinal and hilar contour. BONES AND SOFT TISSUES: No acute abnormality. IMPRESSION: No acute abnormality. WSN: [id number] Ordering Physician: Jenise Sultana Dictated By: Jordan Ashraf MD Dictated Date/Time: 12/07/20 9:26 am Reviewed By: Jordan Ashraf MD Signed By: Jordan Ashraf MD Signed Date/Time: 12/07/20 9:26 am Transcribed By: MARTHA Transcribed Date/Time: 12/07/20 9:26 am Vital Signs Most recent to oldest [Reference Range]: 1 2 3 Weight 60.8 kg (12/07/20 1:39 AM) Oxygen Saturation [94-100 %] 97 % (12/07/20 11:35 AM) 98 % (12/07/20 7:47 AM) 98 % (12/07/20 4:19 AM) Pulse Rate [55-90 bpm] 93 bpm *H* (12/07/20 11:35 AM) 92 bpm *H* (12/07/20 7:47 AM) 93 bpm *H* (12/07/20 4:19 AM) Blood Pressure [90-138/55-84 mm Hg] 114/64mm Hg (12/07/20 11:35 AM) 136/72mm Hg (12/07/20 7:47 AM) 128/62mm Hg (12/07/20 4:19 AM) Respiratory Rate [16-30 br/min] 18 br/min (12/07/20 11:35 AM) 18 br/min (12/07/20 9:00 AM) 18 br/min (12/07/20 7:47 AM) Temperature [96.8-100.4 DegF] 98.2 DegF (12/07/20 11:35 AM) 97.6 DegF (12/07/20 7:47 AM) 98.5 DegF (12/06/20 11:08 PM) Mode of Delivery (Oxygen) Room air (12/07/20 11:35 AM) Room air (12/07/20 7:47 AM) Room air (12/07/20 4:19 AM) Blood pressure sites Arm, left (12/07/20 11:35 AM) Arm, left (12/07/20 7:47 AM) Arm, left (12/07/20 4:19 AM) Temperature Route Oral (12/07/20 11:35 AM) Oral (12/07/20 7:47 AM) Oral (12/06/20 11:08 PM) Dry Weight 60.8 kg (12/07/20 1:39 AM) Weight Obtained Via Bed scale (12/07/20 1:39 AM) Dry Weight Obtained Via Bed scale (12/07/20 1:39 AM) Social History Social History Type Response Tobacco Use: 4 or less cigar ettes(less than 1/4 pack)/day in last 30 days. Other: 3-3 packs a day for about 30-40. Now 3-4 day. Sex
--- OUTSIDE RECORDS SUMMARY | 2024-04-01 01:25 | XMS_ITS | Continuity of Care Document ---
Author Organization [facility] Adult Address [address] [place] [address]- Care Team Providers Care Veneer Sawyer Name Role Phone Not on Staff, PCP Primary Care Physician Unavail able [place] [facility] [place](s): 02/13/22 - 06/13/22 [facility] Adult [address] [place] [address]- Attending Physician: Krishna APARTMENT LEASING AGENT, Ivanna Allergies, Adverse Reactions, Alerts No Known Medication Allergies Medications Breo Ellipta 100 mcg-25 mcg/inh inhalation powder 1 puffs, Inhalation, Daily, # 60 Unknown, 8 Refills, [facility], 270, INHALE 1 PUFF BY MOUTH INTO THE lungs DAILY, 170, cm, 07/20/21 8:17:00 EST, Height, 66, kg, 07/19/21 13:21:00 EST, Dry Weight Start Date: 09/20/21 Status: Ordered calcium-vitamin D 600 mg-400 intl units oral tablet 1 tablet, By Mouth, 2 times a day, # 60 tablet, 2 Refills, Maintenance, 04/15/22 14:16:00 EDT, [place], [place] - [id number], 30, 1 tablet By Mouth 2 times a day, 170, cm, 01/18/22 12:36:00 EDT, Height, 66, kg, 07/19/21 13:21:00 EST,... Start Date: 04/15/22 Status: Ordered cloNIDine 0.1 mg/24 hr transdermal film, extended release 1 patch, Topically, Daily, CHANGE DAILY ROTATE PLACEMENT, # 90 patch, 1 Refills, Maintenance, 01/17/21 9:19:00 EDT, Patch, [place], [place] - [id number], Partial fill upon patient request if the [...] 5 Refills, Maintenance, 01/22/21 14:24:00 EDT, ECCapsule, [place], [place] - [id number], Partial fill upon patient request if the [...] 12/24/21 12:52:00 EDT, Route to Pharmacy Electronically, [place], [place] - [id number], Partial fill upon patient request i... Start Date: 12/24/21 Status: Ordered levothyroxine 0.088 mg oral tablet 1 tablet = 88 mcg, By Mouth, Daily, # 30 tablet, 6 Refills, Maintenance, 05/16/22 17:20:00 EDT, Tablet, [place], [place] - [id number], Partial fill upon patient request if the prescription is for a schedule II opioid drug., 170, cm, 0... Start Date: 05/16/22 Status: Ordered lisinopril 40 mg oral tablet 1 tablet, By Mouth, Daily, # 90 tablet, 0 Refills, 04/15/22 14:16:00 EDT, [place], [place] - [id number], 170, cm, 01/18/22 12:36:00 EDT, Height, 66, kg, 07/19/21 13:21:00 EST, Dry Weight Start Date: 04/15/22 Status: Ordered montelukast 10 mg oral tablet 1, tablet, By Mouth, Daily, # 90 tablet, Refills 1, Tot. Refills 1, 04/15/22 14:16:00 EDT, Route toPharmacy Electronically, [place], [place] - [id number], 170, cm, 01/18/22 12:36:00EDT, Height, 66, kg, 07/19/21 13:21:00 EST, Dry Weight Start Date: 04/15/22 Status: Ordered omeprazole 40 mg oral enteric coated capsule 1 capsule = 40 mg, By Mouth, Daily, # 90 capsule, 2 Refills, Maintenance, 01/26/21 14:22:00 EDT, ECCapsule, [place], [place] - [id number], Partial fill upon patient request if the prescription is for a schedule II opioid drug., 164.3... Start Date: 01/26/21 Status: Ordered omeprazole 40 mg oral enteric coated capsule 1 capsule = 40 mg, By Mouth, Daily, # 90 capsule, 3 Refills, Maintenance, 01/26/21 14:57:00 EDT, ECCsophie, [facility]/pharmacy #[id number], Partial fill upon patient request if the prescription is for a schedule II opioid drug., 164.3, cm, 01/06/21 13:12:00 EDT,... Start Date: 01/26/21 Status: Ordered propranolol 20 mg oral tablet 1, tablet, By Mouth, 3 times a day, # 90 tablet, Refills 8, Route to Pharmacy Electronically, [facility], 170, cm, 07/20/21 8:17:00 EST, Height, 66, kg, 07/19/21 13:21:00 EST, Dry Weight Start Date: 09/20/21 Status: Ordered spironolactone 25 mg oral tablet 1, tablet, By Mouth, Daily, # 90 tablet, Refills 0, Tot. Refills 0, 04/15/22 14:16:00 EDT, Route toPharmacy Electronically, [facility] [place], [place] - [id number], 170, cm, 01/18/22 12:36:00EDT, Height, 66, kg, [...] Team Personnel Name: Seun Christian RN Position: [facility] RN Member Role: Primary Care Nurse Name: Not on Staff, PCP Position: [facility] Physician (General Medicine) Member Role: PCP Care Team Related Persons Name: FLACO DALAL Address: [place] [address]
--- OUTSIDE RECORDS SUMMARY | 2024-04-01 01:25 | XMS_ITS | Continuity of Care Document ---
Author Organization [facility] Address [address] [place] [address]- Care Team Providers Care Contract Administrative Assistant Name Role Phone Ivanna Keller NP Primary Care Physician Encounter [facility] [place] Date(s): 04/01/21 - 05/01/21 [facility] [address] [place], [place] [address] Allergies, Adverse Reactions, Alerts No [...] Refills, Maintenance, 03/08/21 13:22:00 EDT, REC Powder, [place], [place] - [id number], Partial fill upon patient request if the prescription is for a schedule II opioid drug., 164.3, cm,... Start Date: 03/08/21 Status: Ordered cloNIDine 0.1 mg/24 hr transdermal film, extended release 1 patch, Topically, Daily, CHANGE DAILY ROTATE PLACEMENT, # 90 patch, 1 Refills, Maintenance, 01/17/21 9:19:00 EDT, Patch, [place], [place] - [id number], Partial fill upon patient request if the prescription is for a schedule II opioi... Start Date: 01/17/21 Stop Date: 07/16/21 Status: Ordered duloxetine 60 mg oral enteric coated capsule 1 capsule = 60 mg, By Mouth, Daily, # 30 capsule, 5 Refills, Maintenance, 01/22/21 14:24:00 EDT, ECCapsule, [facility] [id number], Partial fill upon patient request if the prescription is for a schedule II opioid drug., 164.3... Start Date: 01/22/21 Stop Date: 07/21/21 Status: Ordered famotidine 40 mg oral tablet 1 tablet = 40 mg, By Mouth, 2 times a day, # 60 tablet, 2 Refills, Maintenance, 01/03/21 15:00:00 EDT, Tablet, [facility]/pharmacy #[id number], Partial fill upon patient request if the prescription is for a schedule II opioid drug., 164.3, cm, 01/03/21 14:30:00 ED... Start Date: 01/03/21 Stop Date: 04/03/21 Status: Ordered lisinopril 40 mg oral tablet 1 tablet, By Mouth, Daily, # 90 tablet, 4 Refills, [facility], 164.3, cm, 03/08/21 12:48:00 EDT, Height, 58.9, kg, 01/26/21 13:00:00 EDT, Dry Weight Start Date: 03/28/21 Status: Ordered montelukast 10 mg oral tablet 1, tablet, By Mouth, Daily, # 90 tablet, Refills 0, Route to Pharmacy Electronically, [facility], 164.3, cm, 03/08/21 12:48:00 EDT, Height, 58.9, kg, 01/26/21 13:00:00 EDT, Dry Weight Start Date: 03/28/21 Status: Ordered omeprazole 40 mg oral enteric coated capsule 1 capsule = 40 mg, By Mouth, Daily, # 90 capsule, 2 Refills, Maintenance, 01/26/21 14:22:00 EDT, ECCapsule, [place], [place] - [id number], Partial fill upon patient request if the prescription is for a schedule II opioid drug., 164.3... Start Date: 01/26/21 Status: Ordered omeprazole 40 mg oral enteric coated capsule 1 capsule = 40 mg, By Mouth, Daily, # 90 capsule, 3 Refills, Maintenance, 01/26/21 14:57:00 EDT, ECCapsule, [facility]/pharmacy #[id number], Partial fill [...] tablet, 0 Refills, Maintenance, 04/04/21 13:21:00 EDT, Tablet,[place], [place] - [id number], Par... Start Date: 04/04/21 Status: Ordered propranolol 20 mg oral tablet 1, tablet, By Mouth, 3 times a day, # 90 tablet, Refills 5, Tot. Refills 5, Maintenance, 03/15/21 10:28:00 EDT, Route to Pharmacy Electronically, [facility] [id number], Please cancel rx done under Barbara Padilla MD., 164.3... Start Date: 03/15/21 Status: Ordered propylthiouracil 50 mg oral tablet 2 tablet = 100 mg, By Mouth, Every 8 hours, # 180 tablet, 6 Refills, Maintenance, 01/10/21 10:34:00EDT, Tablet, [facility]/pharmacy #[id number], Partial fill upon patient request if the [...]
--- OUTSIDE RECORDS SUMMARY | 2024-04-01 01:25 | XMS_ITS | Continuity of Care Document ---
Author Organization [facility] Adult Address [address] [place] [address]- Care Team Providers Care Research & Insights Executive Name Role Phone Ivanna Keller NP Primary Care Physician [place] [facility] [place](s): 08/02/21 - 09/01/21 [facility] Adult [address] [place] [address]- Attending Physician: Cydney Murry Admitting Physician: AdmCydney [...] 1 Refills, Maintenance, 01/17/21 9:19:00 EDT, Patch, [facility] [place], [place] - [id number], Partial fill upon patient request if the [...] 5 Refills, Maintenance, 01/22/21 14:24:00 EDT, ECCapsule, [facility] [place] - [id number], Partial fill upon patient request if the [...] Mouth, Daily, # 90 tablet, 4 Refills, [facility], 164.3, cm, 03/08/21 12:48:00 EDT, Height, 58.9, kg, 01/26/21 13:00:00 EDT, Dry Weight Start Date: 03/28/21 Status: Ordered montelukast 10 mg oral tablet 1, tablet, By Mouth, Daily, # 90 tablet, Refills 1, Route to Pharmacy Electronically, [facility], 168, cm, 05/31/21 13:35:00 EDT, Height, 58.9, kg, 01/26/21 13:00:00 EDT, Dry Weight Start Date: 06/16/21 Status: Ordered omeprazole 40 mg oral enteric coated capsule 1 capsule = 40 mg, By Mouth, Daily, # 90 capsule, 2 Refills, Maintenance, 01/26/21 14:22:00 EDT, ECCapsule, [place], [place] - [id number], Partial fill upon patient request if the prescription is for a schedule II opioid drug., 164.3... Start Date: 01/26/21 Status: Ordered omeprazole 40 mg oral enteric coated capsule 1 capsule = 40 mg, By Mouth, Daily, # 90 capsule, 3 Refills, Maintenance, 01/26/21 14:57:00 EDT, ECCapsule, [facility]/pharmacy #[id number], Partial fill upon patient request if the prescription is for a schedule II opioid drug., 164.3, cm, 01/06/21 13:12:00 EDT,... Start Date: 01/26/21 Status: Ordered propranolol 20 mg oral tablet 1, tablet, By Mouth, 3 times a day, # 90 tablet, Refills 5, Tot. Refills 5, Maintenance, 03/15/21 10:28:00 EDT, Route to Pharmacy Electronically, [facility] [id number], Please cancel rx done under Babrara Padilla MD., 164.3... Start Date: 03/15/21 Status: Ordered spironolactone 25 mg oral tablet 25 mg, 1, tablet, By Mouth, Daily, # 90 tablet, Refills 0, Tot. Refills 0, Maintenance, 06/21/21 10:23:00 EST, Route to Pharmacy Electronically, [place], [place] - [id number], Partial fill upon patient request if the [...]
--- OUTSIDE RECORDS SUMMARY | 2024-04-01 01:25 | XMS_ITS | Continuity of Care Document ---
Author Organization [facility] Adult Address [address] [place] [address]- Care Team Providers Care Store Hand Name Role Phone Ivanna Keller NP Primary Care Physician [phone] Encounter [facility] [place] Date(s): 02/16/21 - 03/18/21 [facility] Adult [address] [place] [address]- Allergies, Adverse Reactions, Alerts No Known Medication Allergies Medications amLODIPine 10 mg oral tablet 1 tablet, By Mouth, Daily, # 90 tablet, 1 Refills, Maintenance, 02/23/21 9:38:00 EDT, [facility], 164.3, cm, 01/06/21 13:12:00 EDT, Height, 58.9, kg, 01/26/21 13:00:00 EDT, Dry Weight Start Date: 02/23/21 Status: Ordered calcium-vitamin D 600 mg-400 intl units oral tablet 1 tablet, By Mouth, 2 times a day, # 60 tablet, 11 Refills, Maintenance, 03/03/21 13:28:00 EDT, [facility], 30, TAKE ONE TABLET BY MOUTH two (2) times a day, 164.3, cm, 01/06/21 13:12:00 EDT, Height, 58.9, kg, 01/26/21 13:00:00 EDT, Dry Weight Start Date: 03/03/21 Status: Ordered cholestyramine 4 g/5.5 g oral powder for reconstitution = 4 Gm, By Mouth, 2 times a day, # 60 each, 3 Refills, Maintenance, 03/08/21 13:22:00 EDT, REC Powder, [place], [place] - [id number], Partial fill upon patient request if the prescription is for a schedule II opioid drug., 164.3, cm,... Start Date: 03/08/21 Status: Ordered cloNIDine 0.1 mg/24 hr transdermal film, extended release 1 patch, Topically, Daily, CHANGE DAILY ROTATE PLACEMENT, # 90 patch, 1 Refills, Maintenance, 01/17/21 9:19:00 EDT, Patch, [facility] [id number], Partial fill upon patient request if the prescription is for a schedule II opioi... Start Date: 01/17/21 Stop Date: 07/16/21 Status: Ordered duloxetine 60 mg oral enteric coated capsule 1 capsule = 60 mg, By Mouth, Daily, # 30 capsule, 5 Refills, Maintenance, 01/22/21 14:24:00 EDT, ECCapsule, [place], [place] - [id number], Partial fill upon patient request if the [...] 2 Refills, Maintenance, 01/26/21 14:22:00 EDT, ECCapsule, [place], [place] - [id number], Partial fill upon patient request if the prescription is for a schedule II opioid drug., 164.3... Start Date: 01/26/21 Status: Ordered omeprazole 40 mg oral enteric coated capsule 1 capsule = 40 mg, By Mouth, Daily, # 90 capsule, 3 Refills, Maintenance, 01/26/21 14:57:00 EDT, ECCapsule, [facility]/pharmacy #[id number], Partial fill upon patient request if the prescription is for a schedule II opioid drug., 164.3, cm, 01/06/21 13:12:00 EDT,... Start Date: 01/26/21 Status: Ordered predniSONE 20 mg oral tablet 2 tablet = 40 mg, By Mouth, Daily, for 14 days, # 28 tablet, 3 Refills, Acute 05/11/21 5:14:00 EDT,03/16/21 5:14:00 EDT, Tablet, [place], [place] - [id number], Partial fill upon patient request if the prescription is for a schedule I... Start Date: 03/16/21 Stop Date: 05/11/21 Status: Ordered propranolol 20 mg oral tablet 1, tablet, By Mouth, 3 times a day, # 90 tablet, Refills 5, Tot. Refills 5, Maintenance, 03/15/21 10:28:00 EDT, Route to Pharmacy Electronically, [place], [place] - [id number], Please cancel rx done under Barbara Padilla MD., 164.3... Start Date: 03/15/21 Status: Ordered propylthiouracil 50 mg oral tablet 2 tablet = 100 mg, By Mouth, Every 8 hours, # 180 tablet, 6 Refills, Maintenance, 01/10/21 10:34:00EDT, Tablet, [facility]/pharmacy #[id number], Partial fill upon [...]
--- OUTSIDE RECORDS SUMMARY | 2024-04-01 01:25 | XMS_ITS | Continuity of Care Document ---
Author Organization [facility] ter Address [address] [place] [address]- Care Team Providers Care Photographic Engineer Name Role Phone Ivanna Keller NP Primary Care Physician [phone] [place] [facility] [place] - 07/05/[address] [address]- Attending Physician: Not on Staff, Attending MD Allergies, Adverse Reactions, Alerts No Known [...] 01/17/21 9:19:00 EDT, Patch, [facility] [place] [place] - [id number], Partial fill upon patient request if the [...] 5 Refills, Maintenance, 01/22/21 14:24:00 EDT, ECCapsule, [facility] [place], [place] - [id number], Partial fill upon patient request if the prescription is for a schedule II opioid drug., 164.3... Start Date: 01/22/21 Stop Date: 07/21/21 Status: Ordered famotidine 40 mg oral tablet 1 tablet = 40 mg, By Mouth, 2 times a day, # 60 tablet, 2 Refills, Maintenance, 01/03/21 15:00:00 EDT, Tablet, [facility]/pharmacy #[id number], Partial fill upon patient request if the prescription is for a schedule II opioid drug., 164.3, cm, 01/03/21 14:30:00 ED... Start Date: 01/03/21 Stop Date: 04/03/21 Status: Ordered lisinopril 40 mg oral tablet 1 tablet, By Mouth, Daily, # 90 tablet, 4 Refills, [facility], 164.3, cm, 03/08/21 12:48:00 EDT, Height, 58.9, kg, 01/26/21 13:00:00 EDT, Dry Weight Start Date: 03/28/21 Status: Ordered montelukast 10 mg oral tablet 1, tablet, By Mouth, Daily, # 90 tablet, Refills 1, Route to Pharmacy Electronically, [facility], 168, cm, 05/31/21 13:35:00 EDT, Height, 58.9, kg, 01/26/21 13:00:00 EDT, Dry Weight Start Date: 06/16/21 Status: Ordered omeprazole 40 mg oral enteric coated capsule 1 capsule = 40 mg, By Mouth, Daily, # 90 capsule, 2 Refills, Maintenance, 01/26/21 14:22:00 EDT, ECCapsule, [place], [place] - [id number], Partial fill upon patient request if the prescription is for a schedule II opioid drug., 164.3... Start Date: 01/26/21 Status: Ordered omeprazole 40 mg oral enteric coated capsule 1 capsule = 40 mg, By Mouth, Daily, # 90 capsule, 3 Refills, Maintenance, 01/26/21 14:57:00 EDT, ECCapsule, [facility]/pharmacy #[id number], Partial fill upon patient request if the prescription is for a schedule II opioid drug., 164.3, cm, 01/06/21 13:12:00 EDT,... Start Date: 01/26/21 Status: Ordered propranolol 20 mg oral tablet 1, tablet, By Mouth, 3 times a day, # 90 tablet, Refills 5, Tot. Refills 5, Maintenance, 03/15/21 10:28:00 EDT, Route to Pharmacy Electronically, [facility] [id number], Please cancel rx done under Barbara Padilla MD., 164.3... Start Date: 03/15/21 Status: Ordered spironolactone 25 mg oral tablet 25 mg, 1, tablet, By Mouth, Daily, # 90 tablet, Refills 0, Tot. Refills 0, Maintenance, 06/21/21 10:23:00 EST, Route to Pharmacy Electronically, [place], [place] - [id number], Partial fill upon patient request if the [...]
--- OUTSIDE RECORDS SUMMARY | 2024-04-01 01:25 | XMS_ITS | Continuity of Care Document ---
Author Organization [facility] Adult Address [address] [place] [address]- Care Team Providers Care Oyster Floater Name Role Phone Ivanna Keller NP Primary Care Physician [id number] Date(s[facility] 07/14/21 - 08/13/21 [facility] [address] [place] [address]- Allergies, Adverse Reactions, Alerts No Known Medication [...] 01/17/21 9:19:00 EDT, Patch, [facility] [place], [place] - [id number], Partial fill upon patient request if the [...] 5 Refills, Maintenance, 01/22/21 14:24:00 EDT, ECCapsule, [place], [place] - [id number], Partial fill upon patient request if the [...] Mouth, Daily, # 90 tablet, 4 Refills, [facility], 164.3, cm, 03/08/21 12:48:00 EDT, Height, 58.9, kg, 01/26/21 13:00:00 EDT, Dry Weight Start Date: 03/28/21 Status: Ordered montelukast 10 mg oral tablet 1, tablet, By Mouth, Daily, # 90 tablet, Refills 1, Route to Pharmacy Electronically, [facility], 168, cm, 05/31/21 13:35:00 EDT, Height, 58.9, kg, 01/26/21 13:00:00 EDT, Dry Weight Start Date: 06/16/21 Status: Ordered omeprazole 40 mg oral enteric coated capsule 1 capsule = 40 mg, By Mouth, Daily, # 90 capsule, 2 Refills, Maintenance, 01/26/21 14:22:00 EDT, ECCapsule, [place], [place] - [id number], Partial fill upon patient request if the [...] EDT, Route to Pharmacy Electronically, [facility] [id number], Please cancel rx done under Barbara Padilla MD., 164.3... Start Date: 03/15/21 Status: Ordered spironolactone 25 mg oral tablet 25 mg, 1, tablet, By Mouth, Daily, # 90 tablet, Refills 0, Tot. Refills 0, Maintenance, 06/21/21 10:23:00 EST, Route to Pharmacy Electronically, [facility] [id number], Partial fill upon patient request if the [...]
--- OUTSIDE RECORDS SUMMARY | 2024-04-01 01:25 | XMS_ITS | Continuity of Care Document ---
Author Organization [facility] Address [address] [place] [address]- Care Team Providers Care Receiving Team Member Name Role Phone Ivanna Keller NP Primary Care Physician Encounter [facility] Date(s): 07/17/21 - 08/16/21 [facility] [address] [place] [address]- Allergies, Adverse Reactions, Alerts No Known Medication [...] 01/17/21 9:19:00 EDT, Patch, [facility] - [place], [place] - [id number], Partial fill upon patient request if the [...] capsule, 5 Refills, Maintenance, 01/22/21 14:24:00 EDT, E[facility], [place], [place] - [id number], Partial fill upon patient request if the [...] Mouth, Daily, # 90 tablet, 4 Refills, [facility], 164.3, cm, 03/08/21 12:48:00 EDT, Height, 58.9, kg, 01/26/21 13:00:00 EDT, Dry Weight Start Date: 03/28/21 Status: Ordered montelukast 10 mg oral tablet 1, tablet, By Mouth, Daily, # 90 tablet, Refills 1, Route to Pharmacy Electronically, [facility], 168, cm, 05/31/21 13:35:00 EDT, Height, 58.9, kg, 01/26/21 13:00:00 EDT, Dry Weight Start Date: 06/16/21 Status: Ordered omeprazole 40 mg oral enteric coated capsule 1 capsule = 40 mg, By Mouth, Daily, # 90 capsule, 2 Refills, Maintenance, 01/26/21 14:22:00 EDT, [facility], [place], [place] - [id number], Partial fill upon patient request if the prescription is for a schedule II opioid drug., 164.3... Start Date: 01/26/21 Status: Ordered omeprazole 40 mg oral enteric coated capsule 1 capsule = 40 mg, By Mouth, Daily, # 90 capsule, 3 Refills, Maintenance, 01/26/21 14:57:00 EDT, ECCapsule, [facility]/pharmacy #[id number], Partial fill upon patient request if the prescription is for a schedule II opioid drug., 164.3, cm, 01/06/21 13:12:00 EDT,... Start Date: 01/26/21 Status: Ordered propranolol 20 mg oral tablet 1, tablet, By Mouth, 3 times a day, # 90 tablet, Refills 5, Tot. Refills 5, Maintenance, 03/15/21 10:28:00 EDT, Route to Pharmacy Electronically, [facility] [id number], Please cancel rx done under Barbara Padilla MD., 164.3... Start Date: 03/15/21 Status: Ordered spironolactone 25 mg oral tablet 25 mg, 1, tablet, By Mouth, Daily, # 90 tablet, Refills 0, Tot. Refills 0, Maintenance, 06/21/21 10:23:00 EST, Route to Pharmacy Electronically, [facility] [id number], Partial fill upon patient request if the [...]
--- OUTSIDE RECORDS SUMMARY | 2024-04-01 01:25 | XMS_ITS | Continuity of Care Document ---
Author Organization [facility] Address [address] [place] [address]- Care Team Providers Care Underground Mine Superintendent Name Role Phone Ivanna Keller NP Primary Care Physician [phone] Encounter [facility] [place] Date(s): 01/05/22 - 02/04/22 [facility] [address] [place] [address]- Allergies, Adverse Reactions, Alerts No Known Medication Allergies Medications Breo Ellipta 100 mcg-25 mcg/inh inhalation powder 1 puffs, Inhalation, Daily, # 60 Unknown, 8 Refills, [facility], 270, INHALE 1 PUFF BY MOUTH INTO THE lungs DAILY, 170, cm, 07/20/21 8:17:00 EST, Height, 66, kg, 07/19/21 13:21:00 EST, Dry Weight Start Date: 09/20/21 Status: Ordered calcium-vitamin D 600 mg-400 intl units oral tablet 1 tablet, By Mouth, 2 times a day, # 60 tablet, 11 Refills, Maintenance, 03/03/21 13:28:00 EDT, [facility], 30, TAKE ONE TABLET BY MOUTH two (2) times a day, 164.3, cm, 01/06/21 13:12:00 EDT, Height, 58.9, kg, 01/26/21 13:00:00 EDT, Dry Weight Start Date: 03/03/21 Status: Ordered cloNIDine 0.1 mg/24 hr transdermal film, extended release 1 patch, Topically, Daily, CHANGE DAILY ROTATE PLACEMENT, # 90 patch, 1 Refills, Maintenance, 01/17/21 9:19:00 EDT, Patch, [facility] - [place], [place] - [id number], Partial fill upon patient request if the [...] 5 Refills, Maintenance, 01/22/21 14:24:00 EDT, ECCapsule, [place], [place] - [id number], Partial fill upon patient request if the prescription is for a schedule II opioid drug., 164.3... Start Date: 01/22/21 Stop Date: 07/21/21 Status: Ordered famotidine 40 mg oral tablet 1 tablet = 40 mg, By Mouth, 2 times a day, # 60 tablet, 2 Refills, Maintenance, 01/03/21 15:00:00 EDT, Tablet, [facility]/pharmacy #[id number], Partial fill upon patient request if the prescription is for a schedule II opioid drug., 164.3, cm, 01/03/21 14:30:00 ED... Start Date: 01/03/21 Stop Date: 04/03/21 Status: Ordered ibuprofen 800 mg oral tablet 800 mg, 1, tablet, By Mouth, Daily, PRN, # 30 tablet, Refills 0, Tot. Refills 0, Maintenance, Pain , Moderate, 12/24/21 12:52:00 EDT, Route to Pharmacy Electronically, [place], [place] - [id number], Partial fill upon patient request i... Start Date: 12/24/21 Status: Ordered lisinopril 40 mg oral tablet 1 tablet, By Mouth, Daily, # 90 tablet, 4 Refills, [facility], 164.3, cm, 03/08/21 12:48:00 EDT, Height, 58.9, kg, 01/26/21 13:00:00 EDT, Dry Weight Start Date: 03/28/21 Status: Ordered montelukast 10 mg oral tablet 1, tablet, By Mouth, Daily, # 90 tablet, Refills 1, Tot. Refills 1, 12/25/21 19:23:00 EDT, Route toPharmacy Electronically, [facility] [id number], 170, cm, 12/18/21 12:55:00EDT, Height, 66, kg, 07/19/21 13:21:00 EST, Dry Weight Start Date: 12/25/21 Status: Ordered omeprazole 40 mg oral enteric coated capsule 1 capsule = 40 mg, By Mouth, Daily, # 90 capsule, 2 Refills, Maintenance, 01/26/21 14:22:00 EDT, ECCapsule, [facility] [id number], Partial fill upon patient request if the prescription is for a schedule II opioid drug., 164.3... Start Date: 01/26/21 Status: Ordered omeprazole 40 mg oral enteric coated capsule 1 capsule = 40 mg, By Mouth, Daily, # 90 capsule, 3 Refills, Maintenance, 01/26/21 14:57:00 EDT, ECCapsule, [facility]/pharmacy #[id number], Partial fill upon patient request if the prescription is for a schedule II opioid drug., 164.3, cm, 01/06/21 13:12:00 EDT,... Start Date: 01/26/21 Status: Ordered propranolol 20 mg oral tablet 1, tablet, By Mouth, 3 times a day, # 90 tablet, Refills 8, Route to Pharmacy Electronically, [facility], 170, cm, 07/20/21 8:17:00 EST, Height, 66, kg, 07/19/21 13:21:00 EST, Dry Weight Start Date: 09/20/21 Status: Ordered spironolactone 25 mg oral tablet 1, tablet, By Mouth, Daily, # 90 tablet, Refills 1, Tot. Refills 1, 12/25/21 19:23:00 EDT, Route toPharmacy Electronically, [facility] [id number], 170, cm, 12/18/21 12:55:00EDT, Height, 66, kg, [...]
--- OUTSIDE RECORDS SUMMARY | 2024-04-01 01:25 | XMS_ITS | Continuity of Care Document ---
Author Organization [facility] Address [address] [place] [address]- Care Team Providers Care Middle School Teacher Name Role Phone Ivanna Keller NP Primary Care Physician Encounter [facility] [place] Date(s): 12/25/21 - 01/24/22 [facility] [address] [place] [address]- Allergies, Adverse Reactions, Alerts No Known Medication Allergies Medications Breo Ellipta 100 mcg-25 mcg/inh inhalation powder 1 puffs, Inhalation, Daily, # 60 Unknown, 8 Refills, [facility], 270, INHALE 1 PUFF BY MOUTH INTO THE lungs DAILY, 170, cm, 07/20/21 8:17:00 EST, Height, 66, kg, 07/19/21 13:21:00 EST, Dry Weight Start Date: 09/20/21 Status: Ordered calcium-vitamin D 600 mg-400 intl units oral tablet 1 tablet, By Mouth, 2 times a day, # 60 tablet, 11 Refills, Maintenance, 03/03/21 13:28:00 EDT, [facility], 30, TAKE ONE TABLET BY MOUTH two (2) times a day, 164.3, cm, 01/06/21 13:12:00 EDT, Height, 58.9, kg, 01/26/21 13:00:00 EDT, Dry Weight Start Date: 03/03/21 Status: Ordered cloNIDine 0.1 mg/24 hr transdermal film, extended release 1 patch, Topically, Daily, CHANGE DAILY ROTATE PLACEMENT, # 90 patch, 1 Refills, Maintenance, 01/17/21 9:19:00 EDT, Patch, [facility] - [place], [place] - [id number], Partial fill upon patient request if the [...] 5 Refills, Maintenance, 01/22/21 14:24:00 EDT, E[facility]apsule, [place], [place] - [id number], Partial fill upon patient request if the prescription is for a schedule II opioid drug., 164.3... Start Date: 01/22/21 Stop Date: 07/21/21 Status: Ordered famotidine 40 mg oral tablet 1 tablet = 40 mg, By Mouth, 2 times a day, # 60 tablet, 2 Refills, Maintenance, 01/03/21 15:00:00 EDT, Tablet, [facility]/pharmacy #[id number], Partial fill upon patient request if the prescription is for a schedule II opioid drug., 164.3, cm, 01/03/21 14:30:00 ED... Start Date: 01/03/21 Stop Date: 04/03/21 Status: Ordered ibuprofen 800 mg oral tablet 800 mg, 1, tablet, By Mouth, Daily, PRN, # 30 tablet, Refills 0, Tot. Refills 0, Maintenance, Pain , Moderate, 12/24/21 12:52:00 EDT, Route to Pharmacy Electronically, [place], [place] - [id number], Partial fill upon patient request i... Start Date: 12/24/21 Status: Ordered lisinopril 40 mg oral tablet 1 tablet, By Mouth, Daily, # 90 tablet, 4 Refills, [facility], 164.3, cm, 03/08/21 12:48:00 EDT, Height, 58.9, kg, 01/26/21 13:00:00 EDT, Dry Weight Start Date: 03/28/21 Status: Ordered montelukast 10 mg oral tablet 1, tablet, By Mouth, Daily, # 90 tablet, Refills 1, Tot. Refills 1, 12/25/21 19:23:00 EDT, Route toPharmacy Electronically, [facility] [id number], 170, cm, 12/18/21 12:55:00EDT, Height, 66, kg, 07/19/21 13:21:00 EST, Dry Weight Start Date: 12/25/21 Status: Ordered omeprazole 40 mg oral enteric coated capsule 1 capsule = 40 mg, By Mouth, Daily, # 90 capsule, 2 Refills, Maintenance, 01/26/21 14:22:00 EDT, ECCapsule, [facility] [id number], Partial fill upon patient request if the prescription is for a schedule II opioid drug., 164.3... Start Date: 01/26/21 Status: Ordered omeprazole 40 mg oral enteric coated capsule 1 capsule = 40 mg, By Mouth, Daily, # 90 capsule, 3 Refills, Maintenance, 01/26/21 14:57:00 EDT, ECCapsule, [facility]/pharmacy #[id number], Partial fill upon patient request if the prescription is for a schedule II opioid drug., 164.3, cm, 01/06/21 13:12:00 EDT,... Start Date: 01/26/21 Status: Ordered propranolol 20 mg oral tablet 1, tablet, By Mouth, 3 times a day, # 90 tablet, Refills 8, Route to Pharmacy Electronically, [facility], 170, cm, 07/20/21 8:17:00 EST, Height, 66, kg, 07/19/21 13:21:00 EST, Dry Weight Start Date: 09/20/21 Status: Ordered spironolactone 25 mg oral tablet 1, tablet, By Mouth, Daily, # 90 tablet, Refills 1, Tot. Refills 1, 12/25/21 19:23:00 EDT, Route toPharmacy Electronically, [facility] [id number], 170, cm, 12/18/21 12:55:00EDT, Height, 66, kg, [...]
--- OUTSIDE RECORDS SUMMARY | 2024-04-01 01:25 | XMS_ITS | Continuity of Care Document ---
Author Organization [facility] Address [address] [place] [address]- Care Team Providers Care Marketing Designer Name Role Phone Ivanna Keller NP Primary Care Physician [id number] Date[facility] 08/15/20 - 09/14/20 [facility] [address] [place] [address]- Allergies, Adverse Reactions, Alerts No Known Medication Allergies Medications amLODIPine 10 mg oral tablet 1 tablet = 10 mg, By Mouth, Daily, # 90 tablet, 1 Refills, Maintenance, 07/21/20 9:21:00 EST, Tablet, [place], [place] - [id number], Partial fill upon patient request if the [...] 1 Refills, Maintenance, 07/21/20 9:19:00 EST, Patch, [place], [place] - [id number], Partial fill upon patient request if the [...] 1 Refills, Maintenance, 06/27/20 9:26:00 EST, Solution, [facility] - [place], [place] - [id number], Partial fill upon patient request, 164.3, cm, [...]
--- OUTSIDE RECORDS SUMMARY | 2024-04-01 01:25 | XMS_ITS | Continuity of Care Document ---
Author Organization [facility] Address [address] [place] [address]- Care Team Providers Care [id number] Tank Crewman Name Role Phone Ivanna Keller NP Primary Care Physician Encounter [facility] Date(s): 10/26/21 - 11/25/21 [facility] [address] [place] [address]- Allergies, Adverse Reactions, Alerts No Known Medication Allergies Medications Breo Ellipta 100 mcg-25 mcg/inh inhalation powder 1 puffs, Inhalation, Daily, # 60 Unknown, 8 Refills, [facility], 270, INHALE 1 PUFF BY MOUTH [...] 1 Refills, Maintenance, 01/17/21 9:19:00 EDT, Patch, [facility] - [place], [place] - [id number], Partial fill upon patient request if the [...] 5 Refills, Maintenance, 01/22/21 14:24:00 EDT, E[facility], [place], [place] - [id number], Partial fill upon patient request if the prescription is for a schedule II opioid drug., 164.3... Start Date: 01/22/21 Stop Date: 07/21/21 Status: Ordered famotidine 40 mg oral tablet 1 tablet = 40 mg, By Mouth, 2 times a day, # 60 tablet, 2 Refills, Maintenance, 01/03/21 15:00:00 EDT, Tablet, [facility]/pharmacy #[id number], Partial fill upon patient request if the prescription is for a schedule II opioid drug., 164.3, cm, 01/03/21 14:30:00 ED... Start Date: 01/03/21 Stop Date: 04/03/21 Status: Ordered lisinopril 40 mg oral tablet 1 tablet, By Mouth, Daily, # 90 tablet, 4 Refills, [facility], 164.3, cm, 03/08/21 12:48:00 EDT, Height, 58.9, kg, 01/26/21 13:00:00 EDT, Dry Weight Start Date: 03/28/21 Status: Ordered montelukast 10 mg oral tablet 1, tablet, By Mouth, Daily, # 90 tablet, Refills 1, Route to Pharmacy Electronically, [facility], 168, cm, 05/31/21 13:35:00 EDT, Height, 58.9, kg, 01/26/21 13:00:00 EDT, Dry Weight Start Date: 06/16/21 Status: Ordered omeprazole 40 mg oral enteric coated capsule 1 capsule = 40 mg, By Mouth, Daily, # 90 capsule, 2 Refills, Maintenance, 01/26/21 14:22:00 EDT, Shalini, [facility] - [place], [place] - [id number], Partial fill upon patient request if the prescription is for a schedule II opioid drug., 164.3... Start Date: 01/26/21 Status: Ordered omeprazole 40 mg oral enteric coated capsule 1 capsule = 40 mg, By Mouth, Daily, # 90 capsule, 3 Refills, Maintenance, 01/26/21 14:57:00 ED[facility], [id number], Partial fill upon patient [...] tablet, Refills 0, Route to Pharmacy Electronically, [facility], 170, cm, 07/20/21 8:17:00 EST, Height, [...]
--- OUTSIDE RECORDS SUMMARY | 2024-04-01 01:25 | XMS_ITS | Continuity of Care Document ---
Author Organization [facility] Address [address] [place] [address]- Care Team Providers Care Caisson Worker Name Role Phone Not on Staff, PCP Primary Care Physician Unavail able [place] [facility] [place](s): 09/30/23 - 10/30/23 [facility] [address] [place] [address] Allergies, Adverse Reactions, Alerts No Known Medication Allergies Medications Breo Ellipta 100 mcg-25 mcg/inh inhalation powder 1 puffs, Inhalation, Daily, # 60 Unknown, 8 Refills, [facility], [facility], INHALE 1 PUFF BY MOUTH INTO THE lungs DAILY, 170, cm, 07/20/21 8:17:00 EST, Height, 66, kg, 07/19/21 13:21:00 EST, Dry Weight Start Date: 09/20/21 Status: Ordered calcium-vitamin D 600 mg-400 intl units oral tablet 1 tablet, By Mouth, 2 times a day, # 60 tablet, 2 Refills, Maintenance, 04/15/22 14:16:00 EDT, [place], [place] - [id number], 30, 1 tablet By Mouth 2 times a day, 170, cm, 01/18/22 12:36:00 EDT, Height, 66, kg, 07/19/21 13:21:00 EST,... Start Date: 04/15/22 Status: Ordered cloNIDine 0.1 mg/24 hr transdermal film, extended release 1 patch, Topically, Daily, CHANGE DAILY ROTATE PLACEMENT, # 90 patch, 1 Refills, Maintenance, 01/17/21 9:19:00 EDT, Patch, [place], [place] - [id number], Partial fill upon patient request if the [...] 5 Refills, Maintenance, 01/22/21 14:24:00 EDT, ECCapsule, [place], [place] - [id number], Partial fill upon patient request if the prescription is for a schedule II opioid drug., 164.3... Start Date: 01/22/21 Stop Date: 07/21/21 Status: Ordered famotidine 40 mg oral tablet 1 tablet = 40 mg, By Mouth, 2 times a day, # 60 tablet, 2 Refills, Maintenance, 01/03/21 15:00:00 EDT, Tablet, [facility]/pharmacy #[id number], Partial fill upon patient request if the prescription is for a schedule II opioid drug., 164.3, cm, 01/03/21 14:30:00 ED... Start Date: 01/03/21 Stop Date: 04/03/21 Status: Ordered ibuprofen 800 mg oral tablet 800 mg, 1, tablet, By Mouth, Daily, PRN, # 30 tablet, Refills 0, Tot. Refills 0, Maintenance, Pain , Moderate, 12/24/21 12:52:00 EDT, Route to Pharmacy Electronically, [facility] [id number], Partial fill upon patient request i... Start Date: 12/24/21 Status: Ordered levothyroxine 0.112 mg oral tablet 1 tablet = 112 mcg, By Mouth, Daily, # 30 tablet, 5 Refills, Maintenance, 09/30/23 10:42:00 EST, Tablet, [place], [place] - [id number], Partial fill upon patient request if the prescription is for a schedule II opioid drug., 170, cm,... Start Date: 09/30/23 Status: Ordered lisinopril 40 mg oral tablet 1 tablet, By Mouth, Daily, # 90 tablet, 0 Refills, 04/15/22 14:16:00 EDT, [place] - [id number], 170, cm, 01/18/22 12:36:00 EDT, Height, 66, kg, 07/19/21 13:21:00 EST, Dry Weight Start Date: 04/15/22 Status: Ordered montelukast 10 mg oral tablet 1, tablet, By Mouth, Daily, # 90 tablet, Refills 1, Tot. Refills 1, 04/15/22 14:16:00 EDT, Route toPharmacy Electronically, [place], [place] - [id number], 170, cm, 01/18/22 12:36:00EDT, Height, 66, kg, 07/19/21 13:21:00 EST, Dry Weight Start Date: 04/15/22 Status: Ordered omeprazole 40 mg oral enteric coated capsule 1 capsule = 40 mg, By Mouth, Daily, # 90 capsule, 2 Refills, Maintenance, 01/26/21 14:22:00 EDT, ECCapsule, [place], [place] - [id number], Partial fill upon patient request if the prescription is for a schedule II opioid drug., 164.3... Start Date: 01/26/21 Status: Ordered omeprazole 40 mg oral enteric coated capsule 1 capsule = 40 mg, By Mouth, Daily, # 90 capsule, 3 Refills, Maintenance, 01/26/21 14:57:00 EDT, ECCsophie, [facility]/pharmacy #[id number], Partial fill upon patient request if the prescription is for a schedule II opioid drug., 164.3, cm, 01/06/21 13:12:00 EDT,... Start Date: 01/26/21 Status: Ordered propranolol 20 mg oral tablet 1, tablet, By Mouth, 3 times a day, # 90 tablet, Refills 8, Route to Pharmacy Electronically, [facility], 170, cm, 07/20/21 8:17:00 EST, Height, 66, kg, 07/19/21 13:21:00 EST, Dry Weight Start Date: 09/20/21 Status: Ordered spironolactone 25 mg oral tablet 1, tablet, By Mouth, Daily, # 90 tablet, Refills 0, Tot. Refills 0, 04/15/22 14:16:00 EDT, Route toPharmacy Electronically, [facility] - [place], [place] - [id number], 170, cm, 01/18/22 12:36:00EDT, Height, 66, kg, [...] Team Personnel Name: Seun Christian RN Position: [facility] RN Member Role: Primary Care Nurse Name: Not on Staff, PCP Position: [facility] Physician (General Medicine) Member Role: PCP Care Team Related Persons Name: FLACO DALAL Address: [place] [address]
--- OUTSIDE RECORDS SUMMARY | 2024-04-01 01:25 | XMS_ITS | Continuity of Care Document ---
Author Organization [facility] Address [address] [place] [address]- Care Team Providers Care Director Manufacturing Engineering Name Role Phone Ivanna Keller NP Primary Care Physician [place] [facility] [place] 05/[place]/21 [facility] [address] [place] [address]- Allergies, Adverse Reactions, Alerts No Known Medication [...] 13:22:00 EDT, REC Powder, [facility] - [place], [place] - [id number], Partial fill upon patient request if the prescription is for a schedule II opioid drug., 164.3, cm,... Start Date: 03/08/21 Status: Ordered cloNIDine 0.1 mg/24 hr transdermal film, extended release 1 patch, Topically, Daily, CHANGE DAILY ROTATE PLACEMENT, # 90 patch, 1 Refills, Maintenance, 01/17/21 9:19:00 EDT, Patch, [facility], [place] - [id number], Partial fill upon patient request if the prescription is for a schedule II opioi... Start Date: 01/17/21 Stop Date: 07/16/21 Status: Ordered duloxetine 60 mg oral enteric coated capsule 1 capsule = 60 mg, By Mouth, Daily, # 30 capsule, 5 Refills, Maintenance, 01/22/21 14:24:00 EDT, E[facility]ule, [place], [place] - [id number], Partial fill upon patient request if the prescription is for a schedule II opioid drug., 164.3... Start Date: 01/22/21 Stop Date: 07/21/21 Status: Ordered famotidine 40 mg oral tablet 1 tablet = 40 mg, By Mouth, 2 times a day, # 60 tablet, 2 Refills, Maintenance, 01/03/21 15:00:00 EDT, Tablet, [facility]/pharmacy #[id number], Partial fill upon patient request if the prescription is for a schedule II opioid drug., 164.3, cm, 01/03/21 14:30:00 ED... Start Date: 01/03/21 Stop Date: 04/03/21 Status: Ordered hydrochlorothiazide 25 mg oral tablet 25 mg, 1, tablet, By Mouth, Daily, # 30 tablet, Refills 0, Tot. Refills 0, Maintenance, 05/16/21 13:19:00 EDT, Route to Pharmacy Electronically, [place], [place] - [id number], Partial fill upon patient request if the prescription is f... Start Date: 05/16/21 Stop Date: 06/15/21 Status: Ordered lisinopril 40 mg oral tablet 1 tablet, By Mouth, Daily, # 90 tablet, 4 Refills, [facility], 164.3, cm, 03/08/21 12:48:00 EDT, Height, 58.9, kg, 01/26/21 13:00:00 EDT, Dry Weight Start Date: 03/28/21 Status: Ordered montelukast 10 mg oral tablet 1, tablet, By Mouth, Daily, # 90 tablet, Refills 0, Route to Pharmacy Electronically, [facility], 164.3, cm, 03/08/21 12:48:00 EDT, Height, 58.9, kg, 01/26/21 13:00:00 EDT, Dry Weight Start Date: 03/28/21 Status: Ordered omeprazole 40 mg oral enteric coated capsule 1 capsule = 40 mg, By Mouth, Daily, # 90 capsule, 2 Refills, Maintenance, 01/26/21 14:22:00 EDT, ECCapsule, [place], [place] - [id number], Partial fill upon patient request if the prescription is for a schedule II opioid drug., 164.3... Start Date: 01/26/21 Status: Ordered omeprazole 40 mg oral enteric coated capsule 1 capsule = 40 mg, By Mouth, Daily, # 90 capsule, 3 Refills, Maintenance, 01/26/21 14:57:00 EDT, ECCapsule, [facility]/pharmacy #[id number], Partial fill upon patient request if [...] tablet, 0 Refills, Maintenance, 04/04/21 13:21:00 EDT, Tablet,[facility] [id number], Par... Start Date: 04/04/21 Status: Ordered propranolol 20 mg oral tablet 1, tablet, By Mouth, 3 times a day, # 90 tablet, Refills 5, Tot. Refills 5, Maintenance, 03/15/21 10:28:00 EDT, Route to Pharmacy Electronically, [facility] [id number], Please cancel rx done under Barbara Padilla MD., 164.3... Start Date: 03/15/21 Status: Ordered propylthiouracil 50 mg oral tablet 2 tablet = 100 mg, By Mouth, Every 8 hours, # 180 tablet, 6 Refills, Maintenance, 01/10/21 10:34:00EDT, Tablet, [facility]/pharmacy #[id number], Partial fill upon patient request if the prescription is for a schedule II opioid drug., 164.3, cm, 01/06/21 13:12:00... Start Date: 01/10/21 Stop Date: 08/08/21 Status: Ordered Tylenol 325 mg oral capsule 2 capsule = 650 mg, By Mouth, Every 6 hours, PRN as needed for pain, # 30 capsule, 0 Refills, Acute05/24/21 23:59:00 EDT, 05/13/21 11:13:00 EDT, Capsule, [facility] [place], [place] - [id number], Partial fill upon patient request if the [...]
--- OUTSIDE RECORDS SUMMARY | 2024-04-01 01:25 | XMS_ITS | Continuity of Care Document ---
Author Organization [facility] Adult Address [address] [place] [address]- Care Team Providers Care Ruffler Name Role Phone Ivanna Keller NP Primary Care Physician [place] [facility] [place] Date(s): 07/19/21 - 08/18/21 [facility] Adult [address] [place] [address]- Allergies, Adverse Reactions, Alerts No Known Medication [...] 01/17/21 9:19:00 EDT, Patch, [facility] - [place], [place] - [id number], Partial fill upon patient request if the [...] 5 Refills, Maintenance, 01/22/21 14:24:00 EDT, [facility], [place], [place] - [id number], Partial fill upon patient request if the prescription is for a schedule II opioid drug., 164.3... Start Date: 01/22/21 Stop Date: 07/21/21 Status: Ordered famotidine 40 mg oral tablet 1 tablet = 40 mg, By Mouth, 2 times a day, # 60 tablet, 2 Refills, Maintenance, 01/03/21 15:00:00 EDT, Tablet, [facility]/pharmacy #[id number], Partial fill upon patient request if the prescription is for a schedule II opioid drug., 164.3, cm, 01/03/21 14:30:00 ED... Start Date: 01/03/21 Stop Date: 04/03/21 Status: Ordered lisinopril 40 mg oral tablet 1 tablet, By Mouth, Daily, # 90 tablet, 4 Refills, [facility], 164.3, cm, 03/08/21 12:48:00 EDT, Height, 58.9, kg, 01/26/21 13:00:00 EDT, Dry Weight Start Date: 03/28/21 Status: Ordered montelukast 10 mg oral tablet 1, tablet, By Mouth, Daily, # 90 tablet, Refills 1, Route to Pharmacy Electronically, [facility], 168, cm, 05/31/21 13:35:00 EDT, Height, 58.9, kg, 01/26/21 13:00:00 EDT, Dry Weight Start Date: 06/16/21 Status: Ordered omeprazole 40 mg oral enteric coated capsule 1 capsule = 40 mg, By Mouth, Daily, # 90 capsule, 2 Refills, Maintenance, 01/26/21 14:22:00 EDT, [facility], [place], [place] - [id number], Partial fill upon patient request if the prescription is for a schedule II opioid drug., 164.3... Start Date: 01/26/21 Status: Ordered omeprazole 40 mg oral enteric coated capsule 1 capsule = 40 mg, By Mouth, Daily, # 90 capsule, 3 Refills, Maintenance, 01/26/21 14:57:00 EDT, ECCapsule, [facility]/pharmacy #[id number], Partial fill upon patient request if the prescription is for a schedule II opioid drug., 164.3, cm, 01/06/21 13:12:00 EDT,... Start Date: 01/26/21 Status: Ordered propranolol 20 mg oral tablet 1, tablet, By Mouth, 3 times a day, # 90 tablet, Refills 5, Tot. Refills 5, Maintenance, 03/15/21 10:28:00 EDT, Route to Pharmacy Electronically, [facility] [id number], Please cancel rx done under Barbara Padilla MD., 164.3... Start Date: 03/15/21 Status: Ordered spironolactone 25 mg oral tablet 25 mg, 1, tablet, By Mouth, Daily, # 90 tablet, Refills 0, Tot. Refills 0, Maintenance, 06/21/21 10:23:00 EST, Route to Pharmacy Electronically, [facility] [id number], Partial fill upon patient request if the [...]
--- OUTSIDE RECORDS SUMMARY | 2024-04-01 01:25 | XMS_ITS | Continuity of Care Document ---
Author Organization [facility] Adult Address [address] [place] [address]- Care Team Providers Care Shoe Polisher Name Role Phone Ivanna Keller NP Primary Care Physician Encounter [facility] [place] Date(s): 01/27/21 - 02/26/21 [facility] Adult [address] [place] [address]- Allergies, Adverse Reactions, Alerts No Known Medication Allergies Medications amLODIPine 10 mg oral tablet 1 tablet, By Mouth, Daily, # 90 tablet, 1 Refills, Maintenance, 02/23/21 9:38:00 EDT, [facility], 164.3, cm, 01/06/21 13:12:00 EDT, [...] 1 Refills, Maintenance, 01/17/21 9:19:00 EDT, Patch, [place], [place] - [id number], Partial fill upon patient request if the prescription is for a schedule II opioi... Start Date: 01/17/21 Stop Date: 07/16/21 Status: Ordered duloxetine 60 mg oral enteric coated capsule 1 capsule = 60 mg, By Mouth, Daily, # 30 capsule, 5 Refills, Maintenance, 01/22/21 14:24:00 EDT, [facility], [place], [place] - [id number], Partial fill upon patient request if the [...] 2 Refills, Maintenance, 01/26/21 14:22:00 EDT, [facility], [place], [place] - [id number], Partial fill upon patient request if the [...] EDT, Route to Pharmacy Electronically, [facility] [id number], Partial fill upon patient request if the [...]
--- OUTSIDE RECORDS SUMMARY | 2024-04-01 01:25 | XMS_ITS | Continuity of Care Document ---
Author Organization [facility] Address [address] [place] [address]- Care Team Providers Care Kettle Skimmer Name Role Phone Not on Staff, PCP Primary Care Physician Unavail able [place] [facility] [place](s): 11/19/23 - 12/19/23 [facility] [address] [place] [address] Allergies, Adverse Reactions, Alerts No Known Medication Allergies Medications Breo Ellipta 100 mcg-25 mcg/inh inhalation powder 1 puffs, Inhalation, Daily, # 60 Unknown, 8 Refills, [facility], 270, INHALE 1 PUFF BY MOUTH INTO THE lungs DAILY, 170, cm, 07/20/21 8:17:00 EST, Height, 66, kg, 07/19/21 13:21:00 EST, Dry Weight Start Date: 09/20/21 Status: Ordered calcium-vitamin D 600 mg-400 intl units oral tablet 1 tablet, By Mouth, 2 times a day, # 60 tablet, 2 Refills, Maintenance, 04/15/22 14:16:00 EDT, [place], [place] - [id number], 30, 1 tablet By Mouth 2 times a day, 170, cm, 01/18/22 12:36:00 EDT, Height, 66, kg, 07/19/21 13:21:00 EST,... Start Date: 04/15/22 Status: Ordered cloNIDine 0.1 mg/24 hr transdermal film, extended release 1 patch, Topically, Daily, CHANGE DAILY ROTATE PLACEMENT, # 90 patch, 1 Refills, Maintenance, 01/17/21 9:19:00 EDT, Patch, [place], [place] - [id number], Partial fill upon patient request if the [...] Maintenance, 01/22/21 14:24:00 EDT, ECCapsule, [facility] [place], [place] - [id number], Partial fill upon patient request if the [...] 12/24/21 12:52:00 EDT, Route to Pharmacy Electronically, [place], [place] - [id number], Partial fill upon patient request i... Start Date: 12/24/21 Status: Ordered levothyroxine 0.112 mg oral tablet 1 tablet = 112 mcg, By Mouth, Daily, # 30 tablet, 3 Refills, Maintenance, 12/11/23 12:48:00 EDT, Tablet, [place], [place] - [id number], Partial fill upon patient request if the prescription is for a schedule II opioid drug., 170, cm,... Start Date: 12/11/23 Status: Ordered lisinopril 40 mg oral tablet 1 tablet, By Mouth, Daily, # 90 tablet, 0 Refills, 04/15/22 14:16:00 EDT, [facility] [id number], 170, cm, 01/18/22 12:36:00 EDT, Height, 66, kg, 07/19/21 13:21:00 EST, Dry Weight Start Date: 04/15/22 Status: Ordered montelukast 10 mg oral tablet 1, tablet, By Mouth, Daily, # 90 tablet, Refills 1, Tot. Refills 1, 04/15/22 14:16:00 EDT, Route toPharmacy Electronically, [facility] [place], [facility] [id number], 170, cm, 01/18/22 12:36:00EDT, Height, 66, kg, 07/19/21 13:21:00 EST, Dry Weight Start Date: 04/15/22 Status: Ordered omeprazole 40 mg oral enteric coated capsule 1 capsule = 40 mg, By Mouth, Daily, # 90 capsule, 2 Refills, Maintenance, 01/26/21 14:22:00 EDT, [facility], [place], [place] - [id number], Partial fill upon patient request if the [...] 0, 04/15/22 14:16:00 EDT, Route toPharmacy Electronically, [facility] - [place], [place] - [id number], 170, cm, 01/18/22 12:36:00EDT, Height, 66, kg, [...] Team Personnel Name: Seun Christian RN Position: [facility] RN Member Role: Primary Care Nurse Name: Not on Staff, PCP Position: [facility] Physician (General Medicine) Member Role: PCP Care Team Related Persons Name: FLACO DALAL Address: [place] [address]
--- OUTSIDE RECORDS SUMMARY | 2024-04-01 01:25 | XMS_ITS | Continuity of Care Document ---
Author Organization [facility] Adult Address [address] [place] [address]- Care Team Providers Care Wax Room Supervisor Name Role Phone Ivanna Keller NP Primary Care Physician [phone] [id number] Date(s): 11/04/20 - 12/04/20 [facility] Adult [address] [place] [address]- Allergies, Adverse Reactions, Alerts No Known Medication Allergies Medications amLODIPine 10 mg oral tablet 1 tablet = 10 mg, By Mouth, Daily, # 90 tablet, 1 Refills, Maintenance, 07/21/20 9:21:00 EST, Tablet, [place], [place] - [id number], Partial fill upon patient request if the prescription is for a schedule II opioid drug., 164.3, cm, 1... Start Date: 07/21/20 Stop Date: 01/17/21 Status: Ordered Breo Ellipta 100 mcg-25 mcg/inh inhalation powder 0 Refills, Maintenance, 06/15/20 15:28:00 EST Start Date: 06/15/20 Status: Ordered Breo Ellipta 100 mcg-25 mcg/inh inhalation powder 1 puffs, Inhalation, Daily, # 3 each, 2 Refills, Maintenance, 12/02/20 10:53:00 EDT, Powder, [place], [place] - [id number], Partial fill upon patient request if the prescription is for a schedule II opioid drug., 1 puffs Inhalation Da... Start Date: 12/02/20 Stop Date: 08/29/21 Status: Ordered calcium-vitamin D 600 mg-400 intl units oral tablet 0 Refills, Maintenance, 06/15/20 15:28:00 EST Start Date: 06/15/20 Status: Ordered cloNIDine 0.1 mg/24 hr transdermal film, extended release 1 patch, Topically, Daily, CHANGE DAILY ROTATE PLACEMENT, # 90 patch, 1 Refills, Maintenance, 07/21/20 9:19:00 EST, Patch, [place], [place] - [id number], Partial fill upon patient request if the prescription is for a schedule II opioi... Start Date: 07/21/20 Stop Date: 01/17/21 Status: Ordered Colace sodium 100 mg oral capsule 100 mg, 1, capsule, By Mouth, 2 times a day, # 180 capsule, Refills 0, Tot. Refills 0, Maintenance,10/28/20 15:36:00 EDT, Route to Pharmacy Electronically, [facility]/pharmacy #[id number], Partial fill upon patient request if the prescription is for a schedule II... Start Date: 10/28/20 Stop Date: 01/26/21 Status: Ordered duloxetine 60 mg oral enteric coated capsule 1 capsule = 60 mg, By Mouth, Daily, # 30 capsule, 1 Refills, Maintenance, 11/23/20 14:24:00 EDT, [facility], [place], [place] - [id number], Partial fill upon patient request if the [...] Refills, Maintenance, 10/25/20 12:17:00 EDT, CR Tablet, [facility]/pharmacy #[id number], Partial fill upon patient request if the prescription is for a schedule II opioid drug., 164.3, cm, 08/29/20 8:40:00 EST, Height Start Date: 10/25/20 Status: Ordered Prolia 60 mg/mL subcutaneous solution See Instructions, 1 mL Subcutaneous Injection Every 6 months 3 days, # 1 each, 1 Refills, Maintenance, 06/27/20 9:26:00 EST, Solution, [facility] - [place], [place] - [id number], Partial fill upon patient request, 164.3, cm, [...]
[2024-04-01 01:26] LABS: Glucose, Whole Blood 48 mg/dL (60-115)
[2024-04-01 01:26] LABS: Neutrophils Percent Manual 56 % (45-73)
[2024-04-01] MEDS: Hydrocortisone Sod Succ/PF 100 MG VIAL 50 MG IVPUSH (01:26)
[2024-04-01] MEDS: levoFLOXacin/D5W 750 MG/150 ML PIGGYBACK 100 MG IV (01:26)
--- OUTSIDE RECORDS SUMMARY | 2024-04-01 01:26 | XMS_ITS | Continuity of Care Document ---
Author Organization [facility] Address [address] [place] [address]- Care Team Providers Care Patient Safety Manager Name Role Phone Ivanna Keller NP Primary Care Physician [phone] [place] [facility] [place]03[place] - 02/02/21 [facility] [address] [place] [id number] Attending Physician: Cydney Murry Admitting Physician: Cydney Murry Referring Physician: Cydney Murry Referring Physician: Judith Kee Allergies, Adverse Reactions, Alerts No Known Medication Allergies Medications amLODIPine 10 mg oral tablet 1 tablet = 10 mg, By Mouth, Daily, # 90 tablet, 1 Refills, Maintenance, 07/21/20 9:21:00 EST, Tablet, [place], [place] - [id number], Partial fill upon patient request if the [...] 1 Refills, Maintenance, 01/17/21 9:19:00 EDT, Patch, [place], [place] - [id number], Partial fill upon patient request if the prescription is for a schedule II opioi... Start Date: 01/17/21 Stop Date: 07/16/21 Status: Ordered duloxetine 60 mg oral enteric coated capsule 1 capsule = 60 mg, By Mouth, Daily, # 30 capsule, 5 Refills, Maintenance, 01/22/21 14:24:00 EDT, [place] - [id number], Partial fill upon patient request if the prescription is for a schedule II opioid drug., 164.3... Start Date: 01/22/21 Stop Date: 07/21/21 Status: Ordered famotidine 40 mg oral tablet 1 tablet = 40 mg, By Mouth, 2 times a day, # 60 tablet, 2 Refills, Maintenance, 01/03/21 15:00:00 EDT, Tablet, [facility]/pharmacy #[id number], Partial fill upon [...] capsule, 2 Refills, Maintenance, 01/26/21 14:22:00 EDT, [place] - [id number], Partial fill upon patient request if the prescription is for a schedule II opioid drug., 164.3... Start Date: 01/26/21 Status: Ordered omeprazole 40 mg oral enteric coated capsule 1 capsule = 40 mg, By Mouth, Daily, # 90 capsule, 3 Refills, Maintenance, 01/26/21 14:57:00 EDT, Sh[place], [facility]/pharmacy #[id number], Partial fill upon patient request if the prescription is for a schedule II opioid drug., 164.3, cm, 01/06/21 13:12:00 EDT,... Start Date: 01/26/21 Status: Ordered propranolol 20 mg oral tablet 20 mg, 1, tablet, By Mouth, 3 times a day, # 90 tablet, Refills 0, Tot. Refills 0, Maintenance, 12/07/20 13:13:00 EDT, Route to Pharmacy Electronically, [facility] 3, Partial fill upon patient request if the prescription is for a schedule... Start Date: 12/07/20 Status: Ordered propylthiouracil 50 mg oral tablet 2 tablet = 100 mg, By Mouth, Every 8 hours, # 180 tablet, 6 Refills, Maintenance, 01/10/21 10:34:00EDT, Tablet, [facility]/pharmacy #[id number], Partial fill upon patient request if the [...]
--- OUTSIDE RECORDS SUMMARY | 2024-04-01 01:26 | XMS_ITS | Continuity of Care Document ---
Author Organization [facility] Adult Address [address] [place] [address]- Care Team Providers Care Mental Retardation Nurse Name Role Phone Ivanna Keller NP Primary Care Physician [id number] Date(s): 05/26/21 - 06/25/21 [facility] Adult [address] [place] [address]- Allergies, Adverse Reactions, Alerts No Known Medication [...] 01/17/21 9:19:00 EDT, Patch, [facility] - [place], [place] - [id number], Partial fill upon patient request if the [...] 5 Refills, Maintenance, 01/22/21 14:24:00 EDT, E[facility], [place], [place] - [id number], Partial fill upon patient request if the prescription is for a schedule II opioid drug., 164.3... Start Date: 01/22/21 Stop Date: 07/21/21 Status: Ordered famotidine 40 mg oral tablet 1 tablet = 40 mg, By Mouth, 2 times a day, # 60 tablet, 2 Refills, Maintenance, 01/03/21 15:00:00 EDT, Tablet, [facility]/pharmacy #[id number], Partial fill upon patient request if the prescription is for a schedule II opioid drug., 164.3, cm, 01/03/21 14:30:00 ED... Start Date: 01/03/21 Stop Date: 04/03/21 Status: Ordered lisinopril 40 mg oral tablet 1 tablet, By Mouth, Daily, # 90 tablet, 4 Refills, [facility], 164.3, cm, 03/08/21 12:48:00 EDT, Height, 58.9, kg, 01/26/21 13:00:00 EDT, Dry Weight Start Date: 03/28/21 Status: Ordered montelukast 10 mg oral tablet 1, tablet, By Mouth, Daily, # 90 tablet, Refills 1, Route to Pharmacy Electronically, [facility], 168, cm, 05/31/21 13:35:00 EDT, Height, 58.9, kg, 01/26/21 13:00:00 EDT, Dry Weight Start Date: 06/16/21 Status: Ordered omeprazole 40 mg oral enteric coated capsule 1 capsule = 40 mg, By Mouth, Daily, # 90 capsule, 2 Refills, Maintenance, 01/26/21 14:22:00 EDT, E[facility], [place], [place] - [id number], Partial fill upon patient request if the [...] 03/15/21 10:28:00 EDT, Route to Pharmacy Electronically, [facility] [id number], Please cancel rx done under Barbara Padilla MD., 164.3... Start Date: 03/15/21 Status: Ordered spironolactone 25 mg oral tablet 25 mg, 1, tablet, By Mouth, Daily, # 90 tablet, Refills 0, Tot. Refills 0, Maintenance, 06/21/21 10:23:00 EST, Route to Pharmacy Electronically, [facility] [id number], Partial fill upon patient request if the [...]
--- OUTSIDE RECORDS SUMMARY | 2024-04-01 01:26 | XMS_ITS | Continuity of Care Document ---
Author Organization [facility] Adult Address [address] [place] [address]- Care Team Providers Care Carpenter Labor Supervisor Name Role Phone Ivanna Keller NP Primary Care Physician [phone] [id number] Date(s): 07/20/20 - 08/19/20 [facility] Adult [address] [place] [address]- Allergies, Adverse Reactions, Alerts No Known Medication Allergies Medications amLODIPine 10 mg oral tablet 1 tablet = 10 mg, By Mouth, Daily, # 90 tablet, 1 Refills, Maintenance, 07/21/20 9:21:00 EST, Tablet, [place], [place] - [id number], Partial fill upon patient request if the [...] 1 Refills, Maintenance, 07/21/20 9:19:00 EST, Patch, [place], [place] - [id number], Partial fill upon patient request if the [...] 1 Refills, Maintenance, 06/27/20 9:26:00 EST, Solution, [facility] - [place], [place] - [id number], Partial fill upon patient request, 164.3, cm, [...]
[2024-04-01 01:30] LABS: Band Neutrophils Percent 40 % (3-5); Metamyelocytes Absolute 0.7 X10*3/uL; Metamyelocytes Percent 2 %; Monocytes Absolute Manual 0.7 X10*3/uL (0.1-1.2); Monocytes Percent Manual 2 % (2-11); Neutrophils Absolute Manual 32.9 X10*3/uL (2.0-8.3); RBC Morphology NOTED; Smudge Cells PRESENT; Toxic Vacuolation PRESENT
[2024-04-01 01:31] LABS: Burr Cells 1+ (0-2) /OIF; Platelet Estimate SLIGHTLY DECREASED (NORMAL); Platelet Morphology Comment NORMAL
--- NOTE | 2024-04-01 01:32 | PC.NURSE ---
pt POC rechecked, POC 51. dr.anwer turner.
[2024-04-01 01:43] LABS: Glucose, Whole Blood 37 mg/dL (60-115)
[2024-04-01 01:43] LABS: Glucose, Whole Blood 51 mg/dL (60-115)
--- NOTE | 2024-04-01 01:45 | PC.NURSE ---
pt poc noted to be 37. aware, pt medicated as follows
[2024-04-01 01:50] LABS: Troponin-I High Sensitivity 57.1 ng/L (<3.5-35.0)
[2024-04-01] MEDS: Dextrose 10 % 1,000 ML 50 ML IVCONT (01:50)
[2024-04-01] MEDS: 0.9 % Sodium Chloride 1,000 ML 100 ML IVCONT (01:50)
[2024-04-01 01:52] LABS: Glucose, Whole Blood 38 mg/dL (60-115)
--- NOTE | 2024-04-01 02:00 | PC.NURSE ---
ultrasound guided IV placed in right upper arm, per , draw POC off blood return. pt POC obtained. aware. D5 drip stopped at this time.
[2024-04-01 02:02] LABS: Glucose, Whole Blood 564 mg/dL (60-115)
[2024-04-01 02:37] LABS: Anion Gap 16 (12-20); Blood Urea Nitrogen 42 mg/dL (9-16); Calcium 7.2 mg/dL (8.4-10.2); Carbon Dioxide 13 mmol/L (22-29); Chloride 103 mmol/L (96-108); Creatinine Clr Calc Pharmacy 17.2; Estimated Glomerular Filt Rate 16; Glucose Random 504 mg/dL (60-115); Potassium 3.4 mmol/L (3.3-5.1); Sodium 129 mmol/L (135-145)
[2024-04-01 02:50] LABS: Reflex Lactate? Lactic Acid Added
[2024-04-01 03:06] LABS: Glucose, Whole Blood 398 mg/dL (60-115)
[2024-04-01 03:07] LABS: Venous Blood Gas Refer to POC result
[2024-04-01] MEDS: Insulin Regular, Human 100 UNIT/ML 10 ML VIAL IVPUSH (03:10)
--- NOTE | 2024-04-01 03:11 | PC.NURSE ---
per obtain POC on finger, POC 398. per administer IV insulin.
[2024-04-01 03:12] LABS: VBG Base Excess -14.7 mmol/L; VBG HCO3 11 mmol/L (22-26); VBG pCO2 27 mmHg; VBG pH 7.22 (7.32-7.43); VBG pO2 82 mmHg
[2024-04-01 03:23] LABS: ~Lactic Acid-LAB USE ONLY 3.9 mmol/L (0.5-2.0)
--- NOTE | 2024-04-01 03:30 | P.HPHOSP_ITS ---
History of Present Illness Date of Service: 04/01/24 Chief Complaint: Unable to urinate This is a 63-year-old male with pertinent history of hypothyroidism, hypertension, mood disorder, peripheral neuropathy who presents to the emergency department for evaluation of inability to urinate and blood in stools. Patient has been having generalized abdominal discomfort and initially had urinary hesitancy but was unable to urinate for the last 3 days. Has associated nausea and chills. Patient's son also noticed blood in stools on the day of presentation. He has been having diarrhea for the last 3 days. No vomiting or fever. No chest discomfort, palpitations, shortness of breath. In the emergency department, bladder scan with mood than 500 cc of urine and more than 1000 cc urine output upon insertion of Estevez. Urine concerning for UTI. White count 34.3 and lactic acidosis present Review of Systems 2 Constitutional: Constitutional: Reports fatigue, Reports malaise and Reports weakness Cardiovascular: Cardiovascular: Reports no additional cardiovascular complaints Respiratory: Respiratory: Reports no additional respiratory complaints Gastrointestinal: Gastrointestinal: Reports abdominal pain, Reports hematochezia and Reports nausea Genitourinary: Genitourinary: Reports difficulty urinating and Reports urinary hesitancy Neurologic: Reports weakness Endocrine: Endocrine: Reports fatigue [facility] Medical History Legally blind Asthma HTN (hypertension) Social History Housing: Apartment Patient Tobacco Use Status: Current someday Tobacco user Cigarettes Per Day: 2 e-Cigarette/Vaping Use: Never Used Advance Directives: No Advance Directives Information Provided: Yes Do you have a plan to hurt others: No Plan service: No Current occupational status: disabled Cognitive needs: No Hearing needs: No Vision needs: 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) Meds Allergies Allergy/AdvReac Type Severity Reaction Status Date / Time No Known Allergies Allergy Verified 03/31/24 23:39 [No Known Allergies*] Active Medications: Current Medications Lactated Ringer's (Lr) 500 mls @ 500 mls/hr IV .Q1H RELL Stop: 04/01/24 04:29 Sodium Bicarbonate (Sodium Bicarbonate 8.4% 50 Meq/50 Ml Syringe) 50 meq IVPUSH ONCE ONE Stop: 04/01/24 03:25 Home Medications ?Medication ?Instructions ?Recorded ?Confirmed ?Last Taken ?Type propranolol 20 mg tablet 20 mg PO TID 02/07/22 03/03/24 Unknown History levothyroxine 100 mcg tablet 100 mcg PO DAILY 08/29/22 03/03/24 Unknown History Physical Exam 2 Vital Signs and Narrative: Vital Signs: Last Vital Signs Temp 97.5 F 04/01/24 02:36 Pulse 108 H 04/01/24 02:36 Resp 20 04/01/24 02:36 BP 96/63 04/01/24 02:36 Pulse Ox 92 04/01/24 02:36 O2 Del Method Room Air 04/01/24 02:36 BMI result Body Mass Index 26.6 Middle-aged male lying in bed in no distress Neck supple, no JVD Regular rate and rhythm, S1-S2 heard Regular breath sounds bilaterally, no wheezing or crackles appreciated Abdomen soft nontender, no guarding, no rigidity Patient is awake, alert and oriented to self, place, time and person ; no focal motor deficit Psych: Normal mood No pedal edema Results Labs 04/01/24 00:45 04/01/24 02:12 Labs: Laboratory Results - last 24 hr 03/31/24 04/01/24 04/01/24 23:54 00:35 00:39 MCV MCH MCHC RDW Plt Count MPV Immature Gran % (Auto) Neut % (Auto) Lymph % (Auto) [place] % (Auto) Eos % (Auto) Baso % (Auto) Lymph # (Auto) [place] # (Auto) Eos # (Auto) Baso # (Auto) Abs Immat Gran (auto) Absolute Neuts (auto) Absolute Nucleated RBC Nucleated RBC % (auto) Neutrophils % (Manual) Band Neutrophils % Monocytes % (Manual) Metamyelocytes % Abs Neuts (Manual) Monocytes # (Manual) Metamyelocytes # Smudge Cells Toxic Vacuolation Platelet Estimate Plt Morphology Comment RBC Morphology [place] Cells VBG pH VBG pCO2 VBG pO2 VBG HCO3 VBG O2 Saturation VBG Base Excess Anion Gap Estim Creat Clear Calc Estimated GFR POC Glucose 66 Random Glucose Lactic Acid Lactic Acid F/U @ 2Hr Calcium Total Bilirubin AST ALT Alkaline Phosphatase Troponin I High Sens Total Protein Albumin Urine Color Dark Yellow Urine Appearance Turbid Urine pH 5.5 Ur Specific [place] 1.020 Urine Protein 100 (2+) H Urine Glucose (UA) Negative Urine Ketones Trace Urine Blood Large (3+) H Urine Nitrite Negative Ur Leukocyte Esterase Large (3+) H Urine RBC 11-20 H Urine WBC >50 H Ur Squamous Epith Cells 6-10 Urine Bacteria 4+ Hyaline Casts 6-10 COVID-19 (TRU) Negative COVID-19 Clin Com See Note 04/01/24 04/01/24 04/01/24 00:45 01:19 01:31 MCV 89.5 MCH 31.4 MCHC 35.0 RDW 14.4 Plt Count 156 L D MPV 10.4 Immature Gran % (Auto) Cancelled Neut % (Auto) Cancelled Lymph % (Auto) Cancelled [place] % (Auto) Cancelled Eos % (Auto) Cancelled Baso % (Auto) Cancelled Lymph # (Auto) Cancelled [place] # (Auto) Cancelled Eos # (Auto) Cancelled Baso # (Auto) Cancelled Abs Immat Gran (auto) Cancelled Absolute Neuts (auto) Cancelled Absolute Nucleated RBC 0.000 Nucleated RBC % (auto) 0.0 Neutrophils % (Manual) 56 Band Neutrophils % 40 H Monocytes % (Manual) 2 Metamyelocytes % 2 Abs Neuts (Manual) 32.9 H Monocytes # (Manual) 0.7 Metamyelocytes # 0.7 Smudge Cells PRESENT Toxic Vacuolation PRESENT Platelet Estimate SLIGHTLY DECREASED Plt Morphology Comment NORMAL RBC Morphology NOTED Surendra Cells 1+ (0-2) VBG pH VBG pCO2 VBG pO2 VBG HCO3 VBG O2 Saturation VBG Base Excess Anion Gap 19 Estim Creat Clear Calc 15.0 Estimated GFR 13 POC Glucose 48 L* 51 L* Random Glucose 107 Lactic Acid 2.9 H* Lactic Acid F/U @ 2Hr Calcium 8.4 D Total Bilirubin 0.5 AST 109 H ALT 47 H Alkaline Phosphatase 132 H Troponin I High Sens 57.1 H Total Protein 5.9 L Albumin 3.1 L Urine Color Urine Appearance Urine pH Ur Specific [place] Urine Protein Urine Glucose (UA) Urine Ketones Urine Blood Urine Nitrite Ur Leukocyte Esterase Urine RBC Urine WBC Ur Squamous Epith Cells Urine Bacteria Hyaline Casts COVID-19 (TRU) COVID-19 Clin Com 04/01/24 04/01/24 04/01/24 01:38 01:49 01:57 MCV MCH MCHC RDW Plt Count MPV Immature Gran % (Auto) Neut % (Auto) Lymph % (Auto) [place] % (Auto) Eos % (Auto) Baso % (Auto) Lymph # (Auto) [place] # (Auto) Eos # (Auto) Baso # (Auto) Abs Immat Gran (auto) Absolute Neuts (auto) Absolute Nucleated RBC Nucleated RBC % (auto) Neutrophils % (Manual) Band Neutrophils % Monocytes % (Manual) Metamyelocytes % Abs Neuts (Manual) Monocytes # (Manual) Metamyelocytes # Smudge Cells Toxic Vacuolation Platelet Estimate Plt Morphology Comment RBC Morphology [place] Cells VBG pH VBG pCO2 VBG pO2 VBG HCO3 VBG O2 Saturation VBG Base Excess Anion Gap Estim Creat Clear Calc Estimated GFR POC Glucose 37 L* 38 L* 564 H* Random Glucose Lactic Acid Lactic Acid F/U @ 2Hr Calcium Total Bilirubin AST ALT Alkaline Phosphatase Troponin I High Sens Total Protein Albumin Urine Color Urine Appearance Urine pH Ur Specific [place] Urine Protein Urine Glucose (UA) Urine Ketones Urine Blood Urine Nitrite Ur Leukocyte Esterase Urine RBC Urine WBC Ur Squamous Epith Cells Urine Bacteria Hyaline Casts COVID-19 (TRU) COVID-19 Clin Com 04/01/24 04/01/24 04/01/24 02:12 03:02 03:07 MCV MCH MCHC RDW Plt Count MPV Immature Gran % (Auto) Neut % (Auto) Lymph % (Auto) [place] % (Auto) Eos % (Auto) Baso % (Auto) Lymph # (Auto) [place] # (Auto) Eos # (Auto) Baso # (Auto) Abs Immat Gran (auto) Absolute Neuts (auto) Absolute Nucleated RBC Nucleated RBC % (auto) Neutrophils % (Manual) Band Neutrophils % Monocytes % (Manual) Metamyelocytes % Abs Neuts (Manual) Monocytes # (Manual) Metamyelocytes # Smudge Cells Toxic Vacuolation Platelet Estimate Plt Morphology Comment RBC Morphology Surendra Cells VBG pH 7.22 L VBG pCO2 27 VBG pO2 82 VBG HCO3 11 L VBG O2 Saturation 95.0 VBG Base Excess -14.7 Anion Gap 16 Estim Creat Clear Calc 17.2 Estimated GFR 16 POC Glucose 398 H* Random Glucose 504 H* Lactic Acid Lactic Acid F/U @ 2Hr 3.9 H* Calcium 7.2 L D Total Bilirubin AST ALT Alkaline Phosphatase Troponin I High Sens Total Protein Albumin Urine Color Urine Appearance Urine pH Ur Specific [place] Urine Protein Urine Glucose (UA) Urine Ketones Urine Blood Urine Nitrite Ur Leukocyte Esterase Urine RBC Urine WBC Ur Squamous Epith Cells Urine Bacteria Hyaline Casts COVID-19 (TRU) COVID-19 Clin Com Imaging Radiologist's Impressions: Impressions Abdomen/Pelvis CT 04/01/24 00:02 IMPRESSION: 1. The bladder is completely decompressed with a Estevez catheter in place. There is mild prominence of the left renal collecting system and bilateral ureters to the level of the urinary bladder which is completely decompressed. There is bilateral perinephric stranding more pronounced on the left. No obstructing calculi. A small nonobstructing calculus in the upper pole of the left kidney. 2. Enlarged prostate measuring 5.9 cm. 3. Lucent lesion in the inferior endplate of the L4 vertebral body measuring 1.9 x 1.8 x 1.4 cm with a thin sclerotic margin. This may represent a large Schmorl's node. Fleischner guidelines were followed. Electronically signed by: Tarun Llanes MD 04/01/2024 12:36 AM EDT RP Assessment and Plan (1) Acute sepsis: Status: Acute (2) Acute renal failure: Status: Acute (3) Acute UTI: Status: Acute Plan This is a 63-year-old male with pertinent history of hypothyroidism, hypertension, mood disorder, peripheral neuropathy who presents to the emergency department for evaluation of inability to urinate and blood in stools. #. Severe sepsis due to acute UTI: Resuscitated with IV crystalloids. Lactic acid and blood culture obtained. Follow urine culture. Initiated empiric IV ceftriaxone. #. Acute urinary retention in the setting of above and in a patient with BPH: Estevez catheter placed in the ER. Consulted Urology. #. Acute lactic acidosis due to sepsis #. Acute kidney injury stage III: Component of postrenal as patient with >1000cc urine output upon insertion of Estevez in the ER. Continue to monitor and avoid nephrotoxins. Consulted Nephrology #. Metabolic acidosis due to above: Continue to monitor with repeat blood gas in a.m. #. Acute GI bleed with blood loss anemia: Initiated IV Protonix. Consulting Gastroenterology, appreciate assistance. Monitor H&H #. Hypoglycemia: Initially noted (POC 30 peripheral check) thought to be due to sepsis and patient was given dextrose fluids. Repeat blood glucose in the 500s after dextrose fluids, on venous draw. Initial hypoglycemia ?error. #. Elevated liver enzymes in the setting of sepsis #. Hypertension: Hold spironolactone, losartan in the setting of severe sepsis and EBEN #. Hypothyroidism: On Synthroid Med rec pending DVT prophylaxis: Mechanical Full code Admit as inpatient and will require two night minimum hospital stay for IV antibiotics, monitoring of kidney function, hemodynamic monitoring (as above), which is not possible in a lesser acute setting. Quality Stroke Does the patient have a stroke diagnosis?: No VTE Prior VTE?: No VTE Risk Level:: Medical - moderate - high VTE Device Contraindication: N/A - Device Ordered VTE Drug Contraindication: Treatment Not Indicated
[2024-04-01] MEDS: Sodium Bicarbonate 8.4% 50 MEQ/50 ML SYRINGE IVPUSH (03:37)
[2024-04-01] MEDS: Lactated Ringers 500 ML IV (03:38)
[2024-04-01 03:49] LABS: Glucose, Whole Blood 398 mg/dL (60-115)
[2024-04-01 05:00] LABS: Venous Blood Gas Refer to POC result
[2024-04-01 05:04] LABS: Hematocrit 30.4 % (42.0-52.0); Hemoglobin 10.7 g/dl (14.0-18.0); Mean Corpuscular HGB Conc 35.2 g/dl (31.0-36.0); Mean Corpuscular Hemoglobin 31.2 pg (27.0-33.0); Mean Corpuscular Volume 88.6 fL (80.0-98.0); Mean Platelet Volume 10.6 fL (9.4-12.4); Platelet Count 147 X10*3/uL (160-400); Red Blood Count 3.43 X10*6/uL (4.60-5.80); Red Cell Distribution Width 14.5 % (11.0-16.0); WBC ABN SCTR FOR CBC 1
[2024-04-01 05:06] LABS: White Blood Count 36.6 X10*3/uL (4.8-10.8)
[2024-04-01 05:06] LABS: Reflex Lactate? 2 Y
[2024-04-01 05:16] LABS: Anion Gap 18 (12-20); Blood Urea Nitrogen 40 mg/dL (9-16); Calcium 7.5 mg/dL (8.4-10.2); Carbon Dioxide 13 mmol/L (22-29); Chloride 105 mmol/L (96-108); Creatinine Clr Calc Pharmacy 19.7; Estimated Glomerular Filt Rate 18; Glucose Random 309 mg/dL (60-115); Sodium 133 mmol/L (135-145)
[2024-04-01] MEDS: Albumin Human 25 % 100 ML 133.33 ML IV ×6 (05:17→16:41)
[2024-04-01 05:18] LABS: VBG Base Excess -10.3 mmol/L; VBG HCO3 14 mmol/L (22-26); VBG pCO2 27 mmHg; VBG pH 7.31 (7.32-7.43); VBG pO2 53 mmHg
[2024-04-01 05:28] LABS: Band Neutrophils Percent 44 % (3-5); Lymphocytes Absolute Manual 0.7 X10*3/uL (1.2-4.9); Lymphocytes Percent Manual 2 % (20-40); Metamyelocytes Absolute 1.1 X10*3/uL; Metamyelocytes Percent 3 %; Monocytes Absolute Manual 0.7 X10*3/uL (0.1-1.2); Monocytes Percent Manual 2 % (2-11); Neutrophils Percent Manual 49 % (45-73)
[2024-04-01 05:30] LABS: Burr Cells 1+ (0-2) /OIF; Large Platelet PRESENT; Platelet Estimate SLIGHTLY DECREASED (NORMAL); Platelet Morphology Comment NOTED; RBC Morphology NOTED
[2024-04-01 05:31] LABS: Dohle Bodies PRESENT; Smudge Cells PRESENT; Toxic Vacuolation PRESENT
[2024-04-01] MEDS: Potassium Chloride/H20 10 MEQ/100 ML PIGGYBACK 100 MEQ IV ×4 (05:55→09:23)
[2024-04-01] MEDS: Lactated Ringers 1,000 ML 999 ML IV (05:57)
--- NOTE | 2024-04-01 06:00 | PC.NURSE ---
pt blood pressure noted at this time, aware. iv bolus administered at this time.
[2024-04-01] MEDS: Pantoprazole Sodium 40 MG/10 ML VIAL IVPUSH ×2 (06:04→15:50)
[2024-04-01 06:36] LABS: ~Lactic Acid-LAB USE ONLY 3.1 mmol/L (0.5-2.0)
--- NOTE | 2024-04-01 06:49 | PC.NURSE ---
pt son Petros phone number [phone]
--- NOTE | 2024-04-01 07:28 | PC.NURSE ---
patient resting quietly in bed, respirations equal and unlabored. patient opens eyes to verbal stimuli, awake and alert. patient nolasco bag emptied at 12
--- NOTE | 2024-04-01 07:29 | PC.NURSE ---
patient resting quietly in bed, respirations equal and unlabored, patient opens eyes to verbal stimuli, awake and alert. patient Estevez bag emptied of 100 ml of urine this AM. patient medicated per OCT, skin dry and intact.
[2024-04-01] MEDS: Lactated Ringers 1,000 ML 100 ML IVCONT ×2 (08:05→20:42)
[2024-04-01 08:27] LABS: Glucose, Whole Blood 175 mg/dL (60-115)
--- NOTE | 2024-04-01 08:37 | PM.EVENT ---
Event Note Date of Service: 04/01/24 Event Note: Chart reviewed EBEN Hyponatremia Keep gaurav Full consult to follow Time Spent With Patient Time: Total time managing care of this patient today ____ minutes.
[2024-04-01] MEDS: Potassium Chloride Packet 20 MEQ PACKET 40 MEQ PO (11:22)
--- NOTE | 2024-04-01 11:43 | P.PNIM_ITS ---
Subjective Subjective Date of Service: 04/01/24 Interval History: Seen in follow up for EBEN, obstructive uropathy, pyelonephritis Interval history: Reports feeling better. No abd pain, n/v/d. Afebrile. Blood pressures still soft Physical Exam 2 Vital Signs: Vital Signs: Last Vital Signs Temp 97.6 F 04/01/24 11:27 Pulse 100 04/01/24 11:27 Resp 18 04/01/24 11:27 BP 85/52 L 04/01/24 11:27 Pulse Ox 90 L 04/01/24 11:27 O2 Del Method Room Air 04/01/24 11:27 BMI result Body Mass Index 26.6 Constitutional - Awake and Alert, No apparent distress Eyes - PERRLA, EOMI Cardiovascular - S1S2, RRR, No edema Respiratory - Normal lung expansion, Normal respiratory effort, No respiratory distress, CTA bilaterally Gastrointestinal - NT / ND; +BS; No rebound or guarding Extremities - no calf tenderness bilaterally, no swelling Skin - Warm/Dry Neurological - Alert & oriented x3 Psychological - Appropriate affect Objective Data Active Medications Acetaminophen (Acetaminophen 325 Mg Tablet) 650 mg PO Q6H PRN PRN Reason: Pain, Mild (Pain Scale 1-3), fever or headache Calcium Carbonate (Calcium Carbonate 750 Mg Tab.Chew) 750 mg PO Q4H PRN PRN Reason: Heartburn Ceftriaxone Sodium 2 gm/ (Sodium Chloride) 50 mls @ 100 mls/hr IV Q24H [facility] Lactated Ringer's (Lr) 1,000 mls @ 100 mls/hr IVCONT .Q10H [facility] Last Admin: 04/01/24 08:05 Dose: 100 mls/hr Documented By: CAYETANO Lactated Ringer's (Lr) 1,000 mls @ 999 mls/hr IV .Q1H1M [facility] Stop: 04/01/24 12:45 Magnesium Hydroxide (Milk Of Magnesia 30 Ml Oral.Susp) 30 ml PO DAILY PRN PRN Reason: Constipation Melatonin (Melatonin 3 Mg Tablet) 6 mg PO BEDTIME PRN PRN Reason: Insomnia Ondansetron HCl (Ondansetron Hcl 4 Mg/2 Ml Vial) 4 mg IVPUSH Q8H PRN PRN Reason: Nausea and Vomiting Pantoprazole Sodium (Pantoprazole Sodium 40 Mg/10 Ml Vial) 40 mg IVPUSH BID@0630,1630 [facility] Last Admin: 04/01/24 06:04 Dose: 40 mg Documented By: DEJUAN Sodium Chloride (0.9 % Sodium Chloride Flush 3 Ml Syringe) 3 ml IVFLUSH QSHIFT [facility] Last Admin: 04/01/24 07:31 Dose: Not Given Documented By: CAYETANO Non-Admin Reason: IV Running Labs 04/01/24 04:57 04/01/24 04:57 Labs: Laboratory Results - last 24 hr 03/31/24 04/01/24 04/01/24 23:54 00:35 00:39 MCV MCH MCHC RDW Plt Count MPV Immature Gran % (Auto) Neut % (Auto) Lymph % (Auto) [place] % (Auto) Eos % (Auto) Baso % (Auto) Lymph # (Auto) [place] # (Auto) Eos # (Auto) Baso # (Auto) Abs Immat Gran (auto) Absolute Neuts (auto) Absolute Nucleated RBC Nucleated RBC % (auto) Neutrophils % (Manual) Band Neutrophils % Lymphocytes % (Manual) Monocytes % (Manual) Metamyelocytes % Abs Neuts (Manual) Lymphocytes # (Manual) Monocytes # (Manual) Metamyelocytes # Smudge Cells Toxic Vacuolation Dohle Bodies Platelet Estimate Large Platelets Plt Morphology Comment RBC Morphology Surendra Cells Smear Path Review VBG pH VBG pCO2 VBG pO2 VBG HCO3 VBG O2 Saturation VBG Base Excess Anion Gap Estim Creat Clear Calc Estimated GFR POC Glucose 66 Random Glucose Lactic Acid Lactic Acid F/U @ 2Hr Lactic Acid F/U @ 4Hr Calcium Total Bilirubin AST ALT Alkaline Phosphatase Troponin I High Sens Total Protein Albumin Urine Color Dark Yellow Urine Appearance Turbid Urine pH 5.5 Ur Specific [place] 1.020 Urine Protein 100 (2+) H Urine Glucose (UA) Negative Urine Ketones Trace Urine Blood Large (3+) H Urine Nitrite Negative Ur Leukocyte Esterase Large (3+) H Urine RBC 11-20 H Urine WBC >50 H Ur Squamous Epith Cells 6-10 Urine Bacteria 4+ Hyaline Casts 6-10 COVID-19 (TRU) Negative COVID-19 Clin Com See Note 04/01/24 04/01/24 04/01/24 00:45 01:19 01:31 MCV 89.5 MCH 31.4 MCHC 35.0 RDW 14.4 Plt Count 156 L D MPV 10.4 Immature Gran % (Auto) Cancelled Neut % (Auto) Cancelled Lymph % (Auto) Cancelled [place] % (Auto) Cancelled Eos % (Auto) Cancelled Baso % (Auto) Cancelled Lymph # (Auto) Cancelled [place] # (Auto) Cancelled Eos # (Auto) Cancelled Baso # (Auto) Cancelled Abs Immat Gran (auto) Cancelled Absolute Neuts (auto) Cancelled Absolute Nucleated RBC 0.000 Nucleated RBC % (auto) 0.0 Neutrophils % (Manual) 56 Band Neutrophils % 40 H Lymphocytes % (Manual) Monocytes % (Manual) 2 Metamyelocytes % 2 Abs Neuts (Manual) 32.9 H Lymphocytes # (Manual) Monocytes # (Manual) 0.7 Metamyelocytes # 0.7 Smudge Cells PRESENT Toxic Vacuolation PRESENT Dohle Bodies Platelet Estimate SLIGHTLY DECREASED Large Platelets Plt Morphology Comment NORMAL RBC Morphology NOTED Surendra Cells 1+ (0-2) Smear Path Review VBG pH VBG pCO2 VBG pO2 VBG HCO3 VBG O2 Saturation VBG Base Excess Anion Gap 19 Estim Creat Clear Calc 15.0 Estimated GFR 13 POC Glucose 48 L* 51 L* Random Glucose 107 Lactic Acid 2.9 H* Lactic Acid F/U @ 2Hr Lactic Acid F/U @ 4Hr Calcium 8.4 D Total Bilirubin 0.5 AST 109 H ALT 47 H Alkaline Phosphatase 132 H Troponin I High Sens 57.1 H Total Protein 5.9 L Albumin 3.1 L Urine Color Urine Appearance Urine pH Ur Specific [place] Urine Protein Urine Glucose (UA) Urine Ketones Urine Blood Urine Nitrite Ur Leukocyte Esterase Urine RBC Urine WBC Ur Squamous Epith Cells Urine Bacteria Hyaline Casts COVID-19 (TRU) COVID-19 Clin Com 04/01/24 04/01/24 04/01/24 01:38 01:49 01:57 MCV MCH MCHC RDW Plt Count MPV Immature Gran % (Auto) Neut % (Auto) Lymph % (Auto) [place] % (Auto) Eos % (Auto) Baso % (Auto) Lymph # (Auto) [place] # (Auto) Eos # (Auto) Baso # (Auto) Abs Immat Gran (auto) Absolute Neuts (auto) Absolute Nucleated RBC Nucleated RBC % (auto) Neutrophils % (Manual) Band Neutrophils % Lymphocytes % (Manual) Monocytes % (Manual) Metamyelocytes % Abs Neuts (Manual) Lymphocytes # (Manual) Monocytes # (Manual) Metamyelocytes # Smudge Cells Toxic Vacuolation Dohle Bodies Platelet Estimate Large Platelets Plt Morphology Comment RBC Morphology [place] Cells Smear Path Review VBG pH VBG pCO2 VBG pO2 VBG HCO3 VBG O2 Saturation VBG Base Excess Anion Gap Estim Creat Clear Calc Estimated GFR POC Glucose 37 L* 38 L* 564 H* Random Glucose Lactic Acid Lactic Acid F/U @ 2Hr Lactic Acid F/U @ 4Hr Calcium Total Bilirubin AST ALT Alkaline Phosphatase Troponin I High Sens Total Protein Albumin Urine Color Urine Appearance Urine pH Ur Specific [place] Urine Protein Urine Glucose (UA) Urine Ketones Urine Blood Urine Nitrite Ur Leukocyte Esterase Urine RBC Urine WBC Ur Squamous Epith Cells Urine Bacteria Hyaline Casts COVID-19 (TRU) COVID-19 Fashion [employer] Com 04/01/24 04/01/24 04/01/24 02:12 03:02 03:07 MCV MCH MCHC RDW Plt Count MPV Immature Gran % (Auto) Neut % (Auto) Lymph % (Auto) [place] % (Auto) Eos % (Auto) Baso % (Auto) Lymph # (Auto) [place] # (Auto) Eos # (Auto) Baso # (Auto) Abs Immat Gran (auto) Absolute Neuts (auto) Absolute Nucleated RBC Nucleated RBC % (auto) Neutrophils % (Manual) Band Neutrophils % Lymphocytes % (Manual) Monocytes % (Manual) Metamyelocytes % Abs Neuts (Manual) Lymphocytes # (Manual) Monocytes # (Manual) Metamyelocytes # Smudge Cells Toxic Vacuolation Dohle Bodies Platelet Estimate Large Platelets Plt Morphology Comment RBC Morphology Surendra Cells Smear Path Review VBG pH 7.22 L VBG pCO2 27 VBG pO2 82 VBG HCO3 11 L VBG O2 Saturation 95.0 VBG Base Excess -14.7 Anion Gap 16 Estim Creat Clear Calc 17.2 Estimated GFR 16 POC Glucose 398 H* Random Glucose 504 H* Lactic Acid Lactic Acid F/U @ 2Hr 3.9 H* Lactic Acid F/U @ 4Hr Calcium 7.2 L D Total Bilirubin AST ALT Alkaline Phosphatase Troponin I High Sens Total Protein Albumin Urine Color Urine Appearance Urine pH Ur Specific [place] Urine Protein Urine Glucose (UA) Urine Ketones Urine Blood Urine Nitrite Ur Leukocyte Esterase Urine RBC Urine WBC Ur Squamous Epith Cells Urine Bacteria Hyaline Casts COVID-19 (TRU) COVID-19 Fashion Movement Com 04/01/24 04/01/24 04/01/24 03:45 04:57 05:01 MCV 88.6 MCH 31.2 MCHC 35.2 RDW 14.5 Plt Count 147 L MPV 10.6 Immature Gran % (Auto) Cancelled Neut % (Auto) Cancelled Lymph % (Auto) Cancelled [place] % (Auto) Cancelled Eos % (Auto) Cancelled Baso % (Auto) Cancelled Lymph # (Auto) Cancelled [place] # (Auto) Cancelled Eos # (Auto) Cancelled Baso # (Auto) Cancelled Abs Immat Gran (auto) Cancelled Absolute Neuts (auto) Cancelled Absolute Nucleated RBC 0.000 Nucleated RBC % (auto) 0.0 Neutrophils % (Manual) 49 Band Neutrophils % 44 H Lymphocytes % (Manual) 2 L Monocytes % (Manual) 2 Metamyelocytes % 3 Abs Neuts (Manual) 34.0 H Lymphocytes # (Manual) 0.7 L Monocytes # (Manual) 0.7 Metamyelocytes # 1.1 Smudge Cells PRESENT Toxic Vacuolation PRESENT Dohle Bodies PRESENT Platelet Estimate SLIGHTLY DECREASED Large Platelets PRESENT Plt Morphology Comment NOTED RBC Morphology NOTED [place] Cells 1+ (0-2) Smear Path Review SEE NOTE VBG pH 7.31 L VBG pCO2 27 VBG pO2 53 VBG HCO3 14 L VBG O2 Saturation 84.0 VBG Base Excess -10.3 Anion Gap 18 Estim Creat Clear Calc 19.7 Estimated GFR 18 POC Glucose 398 H* Random Glucose 309 H Lactic Acid Lactic Acid F/U @ 2Hr Lactic Acid F/U @ 4Hr Calcium 7.5 L Total Bilirubin AST ALT Alkaline Phosphatase Troponin I High Sens Total Protein Albumin Urine Color Urine Appearance Urine pH Ur Specific [place] Urine Protein Urine Glucose (UA) Urine Ketones Urine Blood Urine Nitrite Ur Leukocyte Esterase Urine RBC Urine WBC Ur Squamous Epith Cells Urine Bacteria Hyaline Casts COVID-19 (TRU) COVID-19 Clin Com 04/01/24 04/01/24 06:05 08:23 MCV MCH MCHC RDW Plt Count MPV Immature Gran % (Auto) Neut % (Auto) Lymph % (Auto) [place] % (Auto) Eos % (Auto) Baso % (Auto) Lymph # (Auto) [place] # (Auto) Eos # (Auto) Baso # (Auto) Abs Immat Gran (auto) Absolute Neuts (auto) Absolute Nucleated RBC Nucleated RBC % (auto) Neutrophils % (Manual) Band Neutrophils % Lymphocytes % (Manual) Monocytes % (Manual) Metamyelocytes % Abs Neuts (Manual) Lymphocytes # (Manual) Monocytes # (Manual) Metamyelocytes # Smudge Cells Toxic Vacuolation Dohle Bodies Platelet Estimate Large Platelets Plt Morphology Comment RBC Morphology [place] Cells Smear Path Review VBG pH VBG pCO2 VBG pO2 VBG HCO3 VBG O2 Saturation VBG Base Excess Anion Gap Estim Creat Clear Calc Estimated GFR POC Glucose 175 H Random Glucose Lactic Acid Lactic Acid F/U @ 2Hr Lactic Acid F/U @ 4Hr 3.1 H* Calcium Total Bilirubin AST ALT Alkaline Phosphatase Troponin I High Sens Total Protein Albumin Urine Color Urine Appearance Urine pH Ur Specific [place] Urine Protein Urine Glucose (UA) Urine Ketones Urine Blood Urine Nitrite Ur Leukocyte Esterase Urine RBC Urine WBC Ur Squamous Epith Cells Urine Bacteria Hyaline Casts COVID-19 (TRU) COVID-19 Clin Com Assessment and Plan (1) Anemia: Status: Acute (2) Septic shock: Status: Acute (3) Acute renal failure: Status: Acute (4) Acute UTI: Status: Acute Plan 63-year-old male with pertinent history of hypothyroidism, hypertension, mood disorder, peripheral neuropathy who presents to the emergency department for evaluation of inability to urinate and blood in stools. #Septic shock due to acute pyelonephritis -Leukocytosis 36, 44% bandemia, Thrombycytopenia, lactic acidosis, EBEN, hypotension. Had recurrent episode of hypotension this morning. Add 1L bolus LR and albumin x2. Blood cultures pending -Met septic shock criteria at 1127 04/01 with recurrent hypotension despite 6L IVF. Given albumin x 2 and transferred to ICU. Lactic acid ordered and WNL. BC pending -continue 2g iv ctx (initiated 04/01), received levaquin IV x1 in ed -follow cbc, cultures #Acute urinary retention in the setting of above and in a patient with BPH -continue nolasco -urology consult -add flomax #Acute lactic acidosis due to sepsis #Acute kidney injury -Creat 4.47 -->3.91-->3.41 -Likely r/t severe sepsis, GI losses, as well as component of postrenal as patient with >1000cc urine output upon insertion of Nolasco in the ER -continue Nolasco with strict I&O -avoid nephrotoxins -nephrology consult Continue to monitor and avoid nephrotoxins. Consulted Nephrology #Acute metabolic acidosis due to above -ph on arrival 7.22, improved to 7.31 this morning following 1 amp bicarb and IVF with bicarb 11-->14 -Continue IVF -nephrology consult #Acute GI bleed with blood loss anemia -Initiated IV Protonix -appreciate GI assistance -monitor h/h #Hypoglycemia -Initially noted (POC 30 peripheral check) thought to be due to sepsis and patient was given dextrose fluids. Repeat blood glucose in the 500s after dextrose fluids, on venous draw. Initial hypoglycemia ?error. #Elevated liver enzymes in the setting of sepsis #Hypertension -Hold spironolactone, losartan in the setting of severe sepsis and EBEN #Hypothyroidism -Synthroid DVT prophylaxis: Mechanical Full code Requires ongoing inpatient stay due to septic shock, EBEN, pyelonephritis requiring transfer to ICU, IV antibiotics, expert consultation and vasopressors for blood pressure support Quality Stroke Does the patient have a stroke diagnosis?: No VTE Prior VTE?: No VTE Risk Level:: Medical - moderate - high VTE Device Contraindication: N/A - Device Ordered VTE Drug Contraindication: Treatment Not Indicated
--- NOTE | 2024-04-01 12:21 | P.CNGI_ITS ---
History of Present Illness Data of Consult Service Date: 04/01/24 Requesting physician: Mariana Cuellar Primary Care Provider: Unknown Physician HPI Reason for consult: GIB This is a 63-year-old gentleman with past medical history of hypertension, peripheral neuropathy, hypothyroidism, who presented to the hospital for inability to urinate for 3 days. Gastroenterology has been consulted for question of blood in stool raised by his friend at the time of admission. History obtained from the patient, who states that for the past 3 days, he has not been able to urinate, and started to progressively feel more weak, fatigued and with chills. He was therefore brought to the hospital by his friend. On presentation, he was noted to have picture concerning for severe sepsis with possible urinary source. White count is significantly elevated to 36.6 with 44% bands. Lactate of 3.1. By this morning, his pressures are also softer with systolics in the 90s. At bedside, patient actually appears to be doing ok. Able to give his history, although is short of breath and frequently pausing to catch his breath. Labs with drop in H/H compared to November, but has remained stable since admission. Pt reports hx of colo 4-5 years ago at [facility]. Also with hx of PUD for which EGD was done 2020 at [facility]. Review of Systems 2 Review of Systems: Yes all other systems are reviewed and are negative [facility] Past Medical History Medical History Legally blind Asthma HTN (hypertension) Social History Social History Household Members: None Housing: Apartment Patient Tobacco Use Status: Current everyday Tobacco user Tobacco use type: Cigarette Cigarettes Per Day: 2 e-Cigarette/Vaping Use: Never Used service: No Current occupational status: disabled Cognitive needs: No Hearing needs: No Vision needs: 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) Meds Allergies Allergy/AdvReac Type Severity Reaction Status Date / Time No Known Allergies Allergy Verified 03/31/24 23:39 [No Known Allergies*] Active Medications: Current Medications Acetaminophen (Acetaminophen 325 Mg Tablet) 650 mg PO Q6H PRN PRN Reason: Pain, Mild (Pain Scale 1-3), fever or headache Calcium Carbonate (Calcium Carbonate 750 Mg Tab.Chew) 750 mg PO Q4H PRN PRN Reason: Heartburn Ceftriaxone Sodium 2 gm/ (Sodium Chloride) 50 mls @ 100 mls/hr IV Q24H [facility] Lactated Ringer's (Lr) 1,000 mls @ 100 mls/hr IVCONT .Q10H [facility] Last Admin: 04/01/24 08:05 Dose: 100 mls/hr Lactated Ringer's (Lr) 1,000 mls @ 999 mls/hr IV .Q1H1M [facility] Stop: 04/01/24 12:45 Albumin Human (Kedbumin 25 %) 100 mls @ 133.333 mls/hr IV Q1H [facility] Stop: 04/01/24 13:44 Magnesium Hydroxide (Milk Of Magnesia 30 Ml Oral.Susp) 30 ml PO DAILY PRN PRN Reason: Constipation Melatonin (Melatonin 3 Mg Tablet) 6 mg PO BEDTIME PRN PRN Reason: Insomnia Ondansetron HCl (Ondansetron Hcl 4 Mg/2 Ml Vial) 4 mg IVPUSH Q8H PRN PRN Reason: Nausea and Vomiting Pantoprazole Sodium (Pantoprazole Sodium 40 Mg/10 Ml Vial) 40 mg IVPUSH BID@0630,1630 [facility] Last Admin: 04/01/24 06:04 Dose: 40 mg Sodium Chloride (0.9 % Sodium Chloride Flush 3 Ml Syringe) 3 ml IVFLUSH QSHIFT [facility] Last Admin: 04/01/24 07:31 Dose: Not Given Tamsulosin HCl (Tamsulosin Hcl 0.4 Mg Capsule) 0.4 mg PO DAILY [facility] Home Medications ?Medication ?Instructions ?Recorded ?Confirmed ?Last Taken ?Type calcium carbonate 600 mg-vitamin 1 tab PO BID 04/01/24 04/01/24 Unknown History D3 10 mcg (400 unit) tablet ibuprofen 800 mg tablet 800 mg PO DAILY PRN pain 04/01/24 04/01/24 Unknown History levothyroxine 112 mcg tablet 112 mcg PO DAILY 04/01/24 04/01/24 Unknown History Physical Exam 2 Vital Signs: Vital Signs: Last Vital Signs Temp 97.6 F 04/01/24 11:27 Pulse 100 04/01/24 11:27 Resp 18 04/01/24 11:27 BP 85/52 L 04/01/24 11:27 Pulse Ox 90 L 04/01/24 11:27 O2 Del Method Room Air 04/01/24 11:27 BMI result Body Mass Index 26.6 appears older than stated age R eye deformity tachypneic abd soft, nontender A/Ox3, able to answer appropriately Results Labs 04/01/24 04:57 04/01/24 04:57 Labs: Short CBC 04/01/24 04/01/24 Range/Units 00:45 04:57 WBC 34.3 H* 36.6 H* (4.8-10.8) X10*3/uL Hgb 11.6 L D 10.7 L (14.0-18.0) g/dl Hct 33.1 L D 30.4 L (42.0-52.0) % Plt Count 156 L D 147 L (160-400) X10*3/uL BMP 04/01/24 04/01/24 04/01/24 00:45 02:12 04:57 Sodium 135 129 L 133 L Potassium 3.2 L 3.4 3.0 L Chloride 104 103 105 Carbon Dioxide 15 L 13 L 13 L BUN 46 H 42 H 40 H Creatinine 4.47 H* 3.91 H 3.41 H Calcium 8.4 D 7.2 L D 7.5 L Liver Function 04/01/24 Range/Units 00:45 Total Bilirubin 0.5 (0.0-1.0) mg/dL AST 109 H (5-37) U/L ALT 47 H (0-40) U/L Alkaline Phosphatase 132 H (39-117) U/L Albumin 3.1 L (3.5-5.0) g/dL Urine 04/01/24 Range/Units 00:39 Urine Color Dark Yellow Urine Appearance Turbid Urine pH 5.5 (5.0-9.0) Ur Specific [place] 1.020 (1.005-1.025) Urine Protein 100 (2+) H (Neg-Trace) mg/dL Urine Glucose (UA) Negative (Negative) mg/dL Microbiology Microbiology Results: Microbiology 04/01/24 00:49 Blood - Venous Blood Culture - Preliminary Prelim: GNR Gram Stain only 04/01/24 00:50 Blood - Venous Blood Culture - Preliminary Prelim: GNR Gram Stain only Assessment and Plan (1) Acute sepsis: Status: Acute (2) Acute UTI: Status: Acute (3) Anemia: Status: Acute Plan Presenting with sepsis with impending circulatory failure/shock. ICU consulted by primary team. From GI standpoint, hx of GIB is unclear. Anemia is normochromic. Ddx include inflammatory vs hemolytic (dann given adelaida cells on peripheral smear) vs from blood loss. Plan: - Labs added on for iron panel and for ? hemolysis - Agree with resuscitating and stabilizing from sepsis standpoint, will hold off endoscopy for now unless has clinically significant bleeding. - Consider chest imaging given resp status Thank you for allowing me to participate in his care. Please do not hesitate to reach out for questions or concerns. Procedures Date of Service Date of Service: 04/01/24
--- NOTE | 2024-04-01 12:22 | MHC.CM.PN ---
IMM 04/01/24, Pt lives alone, he has [employer] services from [facility] for 3 hours a day. FOr DME, he has a cane, and walks by holding onto someone's arm, he is blind. He said his PCP is [facility]ore[facility] Bettencourt in [place]. For transport home at [place], he said that his [employer]IAL WORKER may be able to pick him up. DCP: home with services. CM to follow and assist as needed with DC plan.
--- NOTE | 2024-04-01 12:31 | PHA.MEDREC ---
Addendum entered by Jorge Barrientos, [facility] 04/09/24 12:21: Pt must have been unsure on admission but he now has a lot of feet pain and states he is supposed to be taking Gabapentin. Called [facility] on [address] in [place] and verified he takes 300 mg po TID and it was last filled March 28. Addendum entered by Luís Hinojosa, [facility] 04/01/24 14:01: med rec reviewed Addendum entered by Elva Reilly 04/01/24 13:49: son came in and gave us a list of medications, took off Gabapentin and Hydrocortison cream . Addendum entered by Luís Hinojosa, [facility] 04/01/24 12:52: med rec reviewed Original Note: Pharmacy Consult ? Medication Reconciliation Pharmacy has completed the medication reconciliation. Spoke to patient to confirm med list. Patient states he doesn't remember the names of what he takes. when going down the list with patient he said Yes I think so,I don't know. to everything. Called and spoke to patient son Petros. Son said he would bring in a list of patients medication, however been checking all day and no son. Utilized claims to confirm med list. will update if son comes in with list.
[2024-04-01] MEDS: Tamsulosin HCL 0.4 MG CAPSULE PO (13:11)
--- NOTE | 2024-04-01 14:36 | P.CONCC_ITS ---
History of Present Illness Data of Consult Service Date: 04/01/24 Primary Care Provider: Unknown Physician HPI Reason for consult: Hypotension 63-year-old gentleman with past medical history of hypertension, hypothyroidism presented to the ED with difficulty in urination and diarrhea. He states he has these symptoms for past couple of days, worsening in severity, progressive, multiple times a day bowel movements with dark colored stools, associated with fever so presented to the ED. he was admitted to the floor, [place] [address], lactate of 3.4 and acute kidney injury. His blood cultures are growing Gram-negative rods, in the floor he was hypotensive despite getting 2 L of IV fluid boluses so MICU was consulted. Review of Systems 2 Constitutional: Constitutional: Denies body ache(s) and Denies chills Eyes: Eyes: Denies blurry vision, Denies exophthalmos and Denies change in vision ENT: Reports Normal hearing present and Denies bleeding gums Cardiovascular: Cardiovascular: Denies Abdominal Cramping after Meds, Denies Abdominal Distension, Denies cool extremities and Denies chest pain at rest Respiratory: Respiratory: Denies change in phlegm color, Denies chest congestion and Denies cough Gastrointestinal: Gastrointestinal: Denies abdominal pain, Reports belching, Reports melena, Reports change in bowel habits and Reports tenesmus Genitourinary: Genitourinary: Denies hematospermia and Denies change in libido Musculoskeletal: Musculoskeletal: Denies abnormal gait, Denies back pain and Denies myalgias Neurologic: Reports Normal hearing present, Denies Neuro-related abnormal movements, Denies Abnormal speech present, Denies abnormal gait and Denies behavioral changes Psychiatric: Psychiatric: Denies behavioral changes, Denies change in appetite and Denies change in libido Endocrine: Endocrine: Denies change in libido [facility] Past Medical History Medical History Legally blind Asthma HTN (hypertension) Social History Social History Household Members: None Housing: Apartment Patient Tobacco Use Status: Current everyday Tobacco user Tobacco use type: Cigarette Cigarettes Per Day: 2 e-Cigarette/Vaping Use: Never Used service: No Current occupational status: disabled Cognitive needs: No Hearing needs: No Vision needs: 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) Meds Allergies Allergy/AdvReac Type Severity Reaction Status Date / Time No Known Allergies Allergy Verified 03/31/24 23:39 [No Known Allergies*] Active Medications: Current Medications Acetaminophen (Acetaminophen 325 Mg Tablet) 650 mg PO Q6H PRN PRN Reason: Pain, Mild (Pain Scale 1-3), fever or headache Calcium Carbonate (Calcium Carbonate 750 Mg Tab.Chew) 750 mg PO Q4H PRN PRN Reason: Heartburn Ceftriaxone Sodium 2 gm/ (Sodium Chloride) 50 mls @ 100 mls/hr IV Q24H [facility] Lactated Ringer's (Lr) 1,000 mls @ 100 mls/hr IVCONT .Q10H [facility] Last Admin: 04/01/24 08:05 Dose: 100 mls/hr Norepinephrine Bitartrate (Levophed) 8 mg in 250 mls @ 0 mls/hr IVCONT .Q0M [facility]; Protocol Magnesium Hydroxide (Milk Of Magnesia 30 Ml Oral.Susp) 30 ml PO DAILY PRN PRN Reason: Constipation Melatonin (Melatonin 3 Mg Tablet) 6 mg PO BEDTIME PRN PRN Reason: Insomnia Ondansetron HCl (Ondansetron Hcl 4 Mg/2 Ml Vial) 4 mg IVPUSH Q8H PRN PRN Reason: Nausea and Vomiting Pantoprazole Sodium (Pantoprazole Sodium 40 Mg/10 Ml Vial) 40 mg IVPUSH BID@0630,1630 [facility] Last Admin: 04/01/24 06:04 Dose: 40 mg Sodium Chloride (0.9 % Sodium Chloride Flush 3 Ml Syringe) 3 ml IVFLUSH QSHIFT [facility] Last Admin: 04/01/24 07:31 Dose: Not Given Tamsulosin HCl (Tamsulosin Hcl 0.4 Mg Capsule) 0.4 mg PO DAILY [facility] Last Admin: 04/01/24 13:11 Dose: 0.4 mg Home Medications ?Medication ?Instructions ?Recorded ?Confirmed ?Last Taken ?Type calcium carbonate 600 mg-vitamin 1 tab PO BID 04/01/24 04/01/24 Unknown History D3 10 mcg (400 unit) tablet ibuprofen 800 mg tablet 800 mg PO DAILY PRN pain 04/01/24 04/01/24 Unknown History levothyroxine 112 mcg tablet 112 mcg PO DAILY 04/01/24 04/01/24 Unknown History Physical Exam 2 Vital Signs: Vital Signs: Last Vital Signs Temp 97.6 F 04/01/24 11:27 Pulse 95 04/01/24 14:11 Resp 25 H 04/01/24 14:11 BP 104/76 04/01/24 14:11 Pulse Ox 91 L 04/01/24 14:11 O2 Del Method Nasal Cannula 04/01/24 14:11 O2 Flow Rate 2 04/01/24 14:11 BMI result Body Mass Index 26.6 General: Patient in acute distress, tired appearing Nutritional Appearance: well nourished and normal weight Eyes: appearance normal, both eyes and all related structures; Alignment and Position: alignment normal and position normal Neck: No lymphadenopathy, no thyromegaly Resp: bilateral air entry equal, bilateral crackles heard in the lung bases Cardio: Regular rate, regular rhythm; Heart sounds: S1 normal heart sound present and S2 normal heart sound present GI: soft, nontender, no guarding, no hepatosplenomegaly : bladder normal to inspection, bladder normal to palpation, no renal angle tenderness Skin: no rashes or lesions noted and elasticity normal Neuro: oriented to person, oriented to place, oriented to time and moves all extremities Neuro: Cranial nerves: Yes Normal hearing present Speech: No Abnormal speech present Results Labs 04/01/24 04:57 04/01/24 04:57 Labs: Short CBC 04/01/24 04/01/24 Range/Units 00:45 04:57 WBC 34.3 H* 36.6 H* (4.8-10.8) X10*3/uL Hgb 11.6 L D 10.7 L (14.0-18.0) g/dl Hct 33.1 L D 30.4 L (42.0-52.0) % Plt Count 156 L D 147 L (160-400) X10*3/uL BMP 04/01/24 04/01/24 04/01/24 00:45 02:12 04:57 Sodium 135 129 L 133 L Potassium 3.2 L 3.4 3.0 L Chloride 104 103 105 Carbon Dioxide 15 L 13 L 13 L BUN 46 H 42 H 40 H Creatinine 4.47 H* 3.91 H 3.41 H Calcium 8.4 D 7.2 L D 7.5 L Liver Function 04/01/24 Range/Units 00:45 Total Bilirubin 0.5 (0.0-1.0) mg/dL AST 109 H (5-37) U/L ALT 47 H (0-40) U/L Alkaline Phosphatase 132 H (39-117) U/L Albumin 3.1 L (3.5-5.0) g/dL Urine 04/01/24 Range/Units 00:39 Urine Color Dark Yellow Urine Appearance Turbid Urine pH 5.5 (5.0-9.0) Ur Specific [place] 1.020 (1.005-1.025) Urine Protein 100 (2+) H (Neg-Trace) mg/dL Urine Glucose (UA) Negative (Negative) mg/dL Microbiology Microbiology Results: Microbiology 04/01/24 00:49 Blood - Venous Blood Culture - Preliminary Prelim: GNR Gram Stain only 04/01/24 00:50 Blood - Venous Blood Culture - Preliminary Prelim: GNR Gram Stain only Assessment and Plan (1) Acute renal failure: Qualifiers: Acute renal failure type: unspecified Qualified Code(s): N17.9 - Acute kidney failure, unspecified Status: Acute (2) Acute sepsis: Status: Acute (3) Acute UTI: Status: Acute (4) Septic shock: Status: Acute (5) Major depression, recurrent: Qualifiers: Active/Remission status: in partial remission Qualified Code(s): F33.41 - Major depressive disorder, recurrent, in partial remission Status: Acute Plan 63-year-old gentleman with past medical history of hypertension, hypothyroidism presented to the ED anuria and diarrhea, admitted to medical ICU for the management of septic shock Septic shock: Received 2 L of IV fluid boluses so far, but currently patient has signs of volume overload including shortness of breath and lung base crackles We will give him albumin bolus 200 cc at 133 cc/hour, can not tolerate more fluid bolus. We will start the patient on Levophed, titrate Levophed to keep the map above 65 mm Hg Acute pyelonephritis: CT abdomen showing bilateral perinephric fat stranding, UA dirty WBC count increased to 33,000 Blood cultures are positive for Gram-negative rods Continue ceftriaxone, if no response or increase in the vasopressor requirement we will change the antibiotics to meropenem to cover ESBL. At present patient is not a high-risk for ESBL infection. Acute kidney injury: Secondary to ATN from severe sepsis and septic shock No acute indication for renal replacement therapy CT abdomen not show any evidence of obstruction Closely monitor I's and O's, avoid nephrotoxic medications Lactic acidosis: Secondary to severe sepsis and septic shock We will trend lactate High anion gap metabolic acidosis: Secondary to lactic acidosis and acute kidney injury Bicarb 13, we will continue to monitor Prophylaxis: Heparin, SCDs Total time managing care of this patient today: 45 minutes.
[2024-04-01 14:43] LABS: Glucose, Whole Blood 100 mg/dL (60-115)
[2024-04-01 15:22] LABS: Lactic Acid 1.4 mmol/L (0.5-2.0)
[2024-04-01] MEDS: 0.9 % Sodium Chloride Flush 3 ML SYRINGE IVFLUSH (15:59)
[2024-04-01 16:44] LABS: Hematocrit 27.9 % (42.0-52.0); Hemoglobin 9.6 g/dl (14.0-18.0); Mean Corpuscular HGB Conc 34.4 g/dl (31.0-36.0); Mean Corpuscular Hemoglobin 31.6 pg (27.0-33.0); Mean Corpuscular Volume 91.8 fL (80.0-98.0); Mean Platelet Volume 10.8 fL (9.4-12.4); Platelet Count 124 X10*3/uL (160-400); Red Blood Count 3.04 X10*6/uL (4.60-5.80)
[2024-04-01] MEDS: Norepinephrine Bitartrate/D5W 8 MG/250 ML PLAST..BAG 14.03 MG IVCONT (16:49)
[2024-04-01 16:50] LABS: White Blood Count 34.9 X10*3/uL (4.8-10.8)
[2024-04-01 16:52] LABS: Lactic Acid 1.4 mmol/L (0.5-2.0)
[2024-04-01 17:00] LABS: Alanine Aminotransferase 41 U/L (0-40); Albumin Level 3.9 g/dL (3.5-5.0); Alkaline Phosphatase 87 U/L (39-117); Anion Gap 16 (12-20); Aspartate Amino Transferase 95 U/L (5-37); Bilirubin Total 0.9 mg/dL (0.0-1.0); Blood Urea Nitrogen 45 mg/dL (9-16); Carbon Dioxide 13 mmol/L (22-29); Chloride 107 mmol/L (96-108); Creatinine Clr Calc Pharmacy 20.2; Estimated Glomerular Filt Rate 19; Glucose Random 126 mg/dL (60-115); Potassium 4.2 mmol/L (3.3-5.1); Sodium 132 mmol/L (135-145); Total Protein 5.9 g/dL (6.5-8.0)
[2024-04-01 17:02] LABS: Glucose, Whole Blood 123 mg/dL (60-115)
[2024-04-01 17:17] LABS: Iron 8 mcg/dL (45-160); Percent Iron Saturation 6 % (15-50); Total Iron Binding Capacity 140 mcg/dL (228-428); Unsaturated Iron Binding 132 ug/dL
--- NOTE | 2024-04-01 17:40 | PM.UROCN ---
History of Present Illness Consult details Consult date: 04/01/24 Narrative: CC: Urinary retention with urosepsis 63-year-old male Admit through emergency department with inability to urinate and blood in stool. Urinary hesitancy had been unable to urinate for 3 days Estevez catheter placed. 1000 cc output. White count 34, lactic acidosis present. Creatinine initially 4.5. Gram-negative rods Recommend Estevez stay for approximately 3-4 weeks. Voiding trial in office. Add finasteride and tamsulosin once taking orals Review of Systems Constitutional: Constitutional: Reports as per HPI and Reports no additional constitutional complaints Cardiovascular: Cardiovascular: Reports as per HPI and Reports no additional cardiovascular complaints Respiratory: Respiratory: Reports as per HPI and Reports no additional respiratory complaints Gastrointestinal: Gastrointestinal: Reports as per HPI and Reports no additional gastrointestinal complaints Genitourinary: Genitourinary: Reports as per HPI Musculoskeletal: Musculoskeletal: Reports no additional musculoskeletal complaints and Reports as per HPI Neurologic: Reports system reviewed and no additional complaints, except as documented and Reports as per HPI [facility] Past Medical History Medical History Legally blind Asthma HTN (hypertension) Social History Social History Household Members: None Housing: Apartment Patient Tobacco Use Status: Current everyday Tobacco user Tobacco use type: Cigarette Cigarettes Per Day: 2 e-Cigarette/Vaping Use: Never Used service: No Current occupational status: disabled Cognitive needs: No Hearing needs: No Vision needs: 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) Meds Allergies Allergy/AdvReac Type Severity Reaction Status Date / Time No Known Allergies Allergy Verified 03/31/24 23:39 [No Known Allergies*] Active Medications: Current Medications Acetaminophen (Acetaminophen 325 Mg Tablet) 650 mg PO Q6H PRN PRN Reason: Pain, Mild (Pain Scale 1-3), fever or headache Calcium Carbonate (Calcium Carbonate 750 Mg Tab.Chew) 750 mg PO Q4H PRN PRN Reason: Heartburn Ceftriaxone Sodium 2 gm/ (Sodium Chloride) 50 mls @ 100 mls/hr IV Q24H [facility] Lactated Ringer's (Lr) 1,000 mls @ 100 mls/hr IVCONT .Q10H [facility] Last Infusion: 04/01/24 15:49 Dose: 100 mls/hr Norepinephrine Bitartrate (Levophed) 8 mg in 250 mls @ 0 mls/hr IVCONT .Q0M [facility]; Protocol Last Admin: 04/01/24 16:49 Dose: 0.1 mcg/kg/min, 14.03 mls/hr Magnesium Hydroxide (Milk Of Magnesia 30 Ml Oral.Susp) 30 ml PO DAILY PRN PRN Reason: Constipation Melatonin (Melatonin 3 Mg Tablet) 6 mg PO BEDTIME PRN PRN Reason: Insomnia Ondansetron HCl (Ondansetron Hcl 4 Mg/2 Ml Vial) 4 mg IVPUSH Q8H PRN PRN Reason: Nausea and Vomiting Pantoprazole Sodium (Pantoprazole Sodium 40 Mg/10 Ml Vial) 40 mg IVPUSH BID@0630,1630 [facility] Last Admin: 04/01/24 15:50 Dose: 40 mg Sodium Chloride (0.9 % Sodium Chloride Flush 3 Ml Syringe) 3 ml IVFLUSH QSHIFT [facility] Last Admin: 04/01/24 15:59 Dose: 3 ml Tamsulosin HCl (Tamsulosin Hcl 0.4 Mg Capsule) 0.4 mg PO DAILY [facility] Last Admin: 04/01/24 13:11 Dose: 0.4 mg Home Medications ?Medication ?Instructions ?Recorded ?Confirmed ?Last Taken ?Type calcium carbonate 600 mg-vitamin 1 tab PO BID 04/01/24 04/01/24 Unknown History D3 10 mcg (400 unit) tablet ibuprofen 800 mg tablet 800 mg PO DAILY PRN pain 04/01/24 04/01/24 Unknown History levothyroxine 112 mcg tablet 112 mcg PO DAILY 04/01/24 04/01/24 Unknown History Physical Exam Vital Signs: Vital Signs: Last Vital Signs Temp 98.4 F 04/01/24 16:00 Pulse 93 04/01/24 17:00 Resp 24 H 04/01/24 17:00 BP 116/69 04/01/24 17:00 Pulse Ox 91 L 04/01/24 17:00 O2 Del Method Room Air 04/01/24 17:00 O2 Flow Rate 2 04/01/24 14:56 BMI result Body Mass Index 26.6 Const: General: cooperative, healthy appearing, comfortable and no acute distress Orientation/consciousness: patient oriented x3 HEENT: Face and sinus: Yes normal facial exam Mouth: moist mucous membranes Neck: Neck: Yes normal visual inspection, Yes full ROM and Yes trachea midline Chest: Chest palpation & inspection: normal inspection of the chest Resp: Effort & Inspection: normal respiratory effort, able to speak in complete sentences and no respiratory distress GI: Inspection: Yes normal to inspection Back/Spine/Pelvis: Cervical Spine: normal cervical lordosis Thoracic/Lumbar Spine: thoracic and lumbar spine normal to inspection Skin: General skin exam: no rashes or lesions noted Neuro: General: patient oriented x3, tone normal and moves all extremities Extrem: General: Yes normal to inspection and Yes capillary refill normal Results Labs 04/01/24 16:36 04/01/24 16:36 Labs: Abnormal lab results 04/01/24 04/01/24 04/01/24 Range/Units 00:39 00:45 01:19 WBC 34.3 H* (4.8-10.8) X10*3/uL RBC 3.70 L D (4.60-5.80) X10*6/uL Hgb 11.6 L D (14.0-18.0) g/dl Hct 33.1 L D (42.0-52.0) % Plt Count 156 L D (160-400) X10*3/uL Band Neutrophils % 40 H (3-5) % Lymphocytes % (Manual) (20-40) % Abs Neuts (Manual) 32.9 H (2.0-8.3) X10*3/uL Lymphocytes # (Manual) (1.2-4.9) X10*3/uL VBG pH (7.32-7.43) VBG HCO3 (22-26) mmol/L Sodium (135-145) mmol/L Potassium 3.2 L (3.3-5.1) mmol/L Carbon Dioxide 15 L (22-29) mmol/L BUN 46 H (9-16) mg/dL Creatinine 4.47 H* (0.5-1.4) mg/dL POC Glucose 48 L* (60-115) mg/dL Random Glucose (60-115) mg/dL Lactic Acid 2.9 H* (0.5-2.0) mmol/L Lactic Acid F/U @ 2Hr (0.5-2.0) mmol/L Lactic Acid F/U @ 4Hr (0.5-2.0) mmol/L Calcium (8.4-10.2) mg/dL Iron (45-160) mcg/dL TIBC (228-428) mcg/dL % Saturation (15-50) % AST 109 H (5-37) U/L ALT 47 H (0-40) U/L Alkaline Phosphatase 132 H (39-117) U/L Troponin I High Sens 57.1 H (<3.5-35.0) ng/L Total Protein 5.9 L (6.5-8.0) g/dL Albumin 3.1 L (3.5-5.0) g/dL Urine Protein 100 (2+) H (Neg-Trace) mg/dL Urine Blood Large (3+) H (Negative) Ur Leukocyte Esterase Large (3+) H (Negative) Urine RBC 11-20 H (0-2) /HPF Urine WBC >50 H (0-5) /HPF 04/01/24 04/01/24 04/01/24 Range/Units 01:31 01:38 01:49 WBC (4.8-10.8) X10*3/uL RBC (4.60-5.80) X10*6/uL Hgb (14.0-18.0) g/dl Hct (42.0-52.0) % Plt Count (160-400) X10*3/uL Band Neutrophils % (3-5) % Lymphocytes % (Manual) (20-40) % Abs Neuts (Manual) (2.0-8.3) X10*3/uL Lymphocytes # (Manual) (1.2-4.9) X10*3/uL VBG pH (7.32-7.43) VBG HCO3 (22-26) mmol/L Sodium (135-145) mmol/L Potassium (3.3-5.1) mmol/L Carbon Dioxide (22-29) mmol/L BUN (9-16) mg/dL Creatinine (0.5-1.4) mg/dL POC Glucose 51 L* 37 L* 38 L* (60-115) mg/dL Random Glucose (60-115) mg/dL Lactic Acid (0.5-2.0) mmol/L Lactic Acid F/U @ 2Hr (0.5-2.0) mmol/L Lactic Acid F/U @ 4Hr (0.5-2.0) mmol/L Calcium (8.4-10.2) mg/dL Iron (45-160) mcg/dL TIBC (228-428) mcg/dL % Saturation (15-50) % AST (5-37) U/L ALT (0-40) U/L Alkaline Phosphatase (39-117) U/L Troponin I High Sens (<3.5-35.0) ng/L Total Protein (6.5-8.0) g/dL Albumin (3.5-5.0) g/dL Urine Protein (Neg-Trace) mg/dL Urine Blood (Negative) Ur Leukocyte Esterase (Negative) Urine RBC (0-2) /HPF Urine WBC (0-5) /HPF 04/01/24 04/01/24 04/01/24 Range/Units 01:57 02:12 03:02 WBC (4.8-10.8) X10*3/uL RBC (4.60-5.80) X10*6/uL Hgb (14.0-18.0) g/dl Hct (42.0-52.0) % Plt Count (160-400) X10*3/uL Band Neutrophils % (3-5) % Lymphocytes % (Manual) (20-40) % Abs Neuts (Manual) (2.0-8.3) X10*3/uL Lymphocytes # (Manual) (1.2-4.9) X10*3/uL VBG pH (7.32-7.43) VBG HCO3 (22-26) mmol/L Sodium 129 L (135-145) mmol/L Potassium (3.3-5.1) mmol/L Carbon Dioxide 13 L (22-29) mmol/L BUN 42 H (9-16) mg/dL Creatinine 3.91 H (0.5-1.4) mg/dL POC Glucose 564 H* 398 H* (60-115) mg/dL Random Glucose 504 H* (60-115) mg/dL Lactic Acid (0.5-2.0) mmol/L Lactic Acid F/U @ 2Hr 3.9 H* (0.5-2.0) mmol/L Lactic Acid F/U @ 4Hr (0.5-2.0) mmol/L Calcium 7.2 L D (8.4-10.2) mg/dL Iron (45-160) mcg/dL TIBC (228-428) mcg/dL % Saturation (15-50) % AST (5-37) U/L ALT (0-40) U/L Alkaline Phosphatase (39-117) U/L Troponin I High Sens (<3.5-35.0) ng/L Total Protein (6.5-8.0) g/dL Albumin (3.5-5.0) g/dL Urine Protein (Neg-Trace) mg/dL Urine Blood (Negative) Ur Leukocyte Esterase (Negative) Urine RBC (0-2) /HPF Urine WBC (0-5) /HPF 04/01/24 04/01/24 04/01/24 Range/Units 03:07 03:45 04:57 WBC 36.6 H* (4.8-10.8) X10*3/uL RBC 3.43 L (4.60-5.80) X10*6/uL Hgb 10.7 L (14.0-18.0) g/dl Hct 30.4 L (42.0-52.0) % Plt Count 147 L (160-400) X10*3/uL Band Neutrophils % 44 H (3-5) % Lymphocytes % (Manual) 2 L (20-40) % Abs Neuts (Manual) 34.0 H (2.0-8.3) X10*3/uL Lymphocytes # (Manual) 0.7 L (1.2-4.9) X10*3/uL VBG pH 7.22 L (7.32-7.43) VBG HCO3 11 L (22-26) mmol/L Sodium 133 L (135-145) mmol/L Potassium 3.0 L (3.3-5.1) mmol/L Carbon Dioxide 13 L (22-29) mmol/L BUN 40 H (9-16) mg/dL Creatinine 3.41 H (0.5-1.4) mg/dL POC Glucose 398 H* (60-115) mg/dL Random Glucose 309 H (60-115) mg/dL Lactic Acid (0.5-2.0) mmol/L Lactic Acid F/U @ 2Hr (0.5-2.0) mmol/L Lactic Acid F/U @ 4Hr (0.5-2.0) mmol/L Calcium 7.5 L (8.4-10.2) mg/dL Iron 8 L (45-160) mcg/dL TIBC 140 L (228-428) mcg/dL % Saturation 6 L (15-50) % AST (5-37) U/L ALT (0-40) U/L Alkaline Phosphatase (39-117) U/L Troponin I High Sens (<3.5-35.0) ng/L Total Protein (6.5-8.0) g/dL Albumin (3.5-5.0) g/dL Urine Protein (Neg-Trace) mg/dL Urine Blood (Negative) Ur Leukocyte Esterase (Negative) Urine RBC (0-2) /HPF Urine WBC (0-5) /HPF 04/01/24 04/01/24 04/01/24 Range/Units 05:01 06:05 08:23 WBC (4.8-10.8) X10*3/uL RBC (4.60-5.80) X10*6/uL Hgb (14.0-18.0) g/dl Hct (42.0-52.0) % Plt Count (160-400) X10*3/uL Band Neutrophils % (3-5) % Lymphocytes % (Manual) (20-40) % Abs Neuts (Manual) (2.0-8.3) X10*3/uL Lymphocytes # (Manual) (1.2-4.9) X10*3/uL VBG pH 7.31 L (7.32-7.43) VBG HCO3 14 L (22-26) mmol/L Sodium (135-145) mmol/L Potassium (3.3-5.1) mmol/L Carbon Dioxide (22-29) mmol/L BUN (9-16) mg/dL Creatinine (0.5-1.4) mg/dL POC Glucose 175 H (60-115) mg/dL Random Glucose (60-115) mg/dL Lactic Acid (0.5-2.0) mmol/L Lactic Acid F/U @ 2Hr (0.5-2.0) mmol/L Lactic Acid F/U @ 4Hr 3.1 H* (0.5-2.0) mmol/L Calcium (8.4-10.2) mg/dL Iron (45-160) mcg/dL TIBC (228-428) mcg/dL % Saturation (15-50) % AST (5-37) U/L ALT (0-40) U/L Alkaline Phosphatase (39-117) U/L Troponin I High Sens (<3.5-35.0) ng/L Total Protein (6.5-8.0) g/dL Albumin (3.5-5.0) g/dL Urine Protein (Neg-Trace) mg/dL Urine Blood (Negative) Ur Leukocyte Esterase (Negative) Urine RBC (0-2) /HPF Urine WBC (0-5) /HPF 04/01/24 04/01/24 Range/Units 16:36 16:58 WBC 34.9 H* (4.8-10.8) X10*3/uL RBC 3.04 L (4.60-5.80) X10*6/uL Hgb 9.6 L (14.0-18.0) g/dl Hct 27.9 L (42.0-52.0) % Plt Count 124 L (160-400) X10*3/uL Band Neutrophils % (3-5) % Lymphocytes % (Manual) (20-40) % Abs Neuts (Manual) (2.0-8.3) X10*3/uL Lymphocytes # (Manual) (1.2-4.9) X10*3/uL VBG pH (7.32-7.43) VBG HCO3 (22-26) mmol/L Sodium 132 L (135-145) mmol/L Potassium (3.3-5.1) mmol/L Carbon Dioxide 13 L (22-29) mmol/L BUN 45 H (9-16) mg/dL Creatinine 3.32 H (0.5-1.4) mg/dL POC Glucose 123 H (60-115) mg/dL Random Glucose 126 H (60-115) mg/dL Lactic Acid (0.5-2.0) mmol/L Lactic Acid F/U @ 2Hr (0.5-2.0) mmol/L Lactic Acid F/U @ 4Hr (0.5-2.0) mmol/L Calcium 8.0 L D (8.4-10.2) mg/dL Iron (45-160) mcg/dL TIBC (228-428) mcg/dL % Saturation (15-50) % AST 95 H (5-37) U/L ALT 41 H (0-40) U/L Alkaline Phosphatase (39-117) U/L Troponin I High Sens (<3.5-35.0) ng/L Total Protein 5.9 L (6.5-8.0) g/dL Albumin (3.5-5.0) g/dL Urine Protein (Neg-Trace) mg/dL Urine Blood (Negative) Ur Leukocyte Esterase (Negative) Urine RBC (0-2) /HPF Urine WBC (0-5) /HPF Short CBC 04/01/24 04/01/24 04/01/24 Range/Units 00:45 04:57 16:36 WBC 34.3 H* 36.6 H* 34.9 H* (4.8-10.8) X10*3/uL Hgb 11.6 L D 10.7 L 9.6 L (14.0-18.0) g/dl Hct 33.1 L D 30.4 L 27.9 L (42.0-52.0) % Plt Count 156 L D 147 L 124 L (160-400) X10*3/uL BMP 04/01/24 04/01/24 04/01/24 00:45 02:12 04:57 Sodium 135 129 L 133 L Potassium 3.2 L 3.4 3.0 L Chloride 104 103 105 Carbon Dioxide 15 L 13 L 13 L BUN 46 H 42 H 40 H Creatinine 4.47 H* 3.91 H 3.41 H Calcium 8.4 D 7.2 L D 7.5 L 04/01/24 16:36 Sodium 132 L Potassium 4.2 D Chloride 107 Carbon Dioxide 13 L BUN 45 H Creatinine 3.32 H Calcium 8.0 L D Liver Function 04/01/24 04/01/24 Range/Units 00:45 16:36 Total Bilirubin 0.5 0.9 (0.0-1.0) mg/dL AST 109 H 95 H (5-37) U/L ALT 47 H 41 H (0-40) U/L Alkaline Phosphatase 132 H 87 (39-117) U/L Albumin 3.1 L 3.9 (3.5-5.0) g/dL Urine 04/01/24 Range/Units 00:39 Urine Color Dark Yellow Urine Appearance Turbid Urine pH 5.5 (5.0-9.0) Ur Specific [address] 1.020 (1.005-1.025) Urine Protein 100 (2+) H (Neg-Trace) mg/dL Urine Glucose (UA) Negative (Negative) mg/dL All other labs normal. Assessment and Plan (1) Acute renal failure: Qualifiers: Acute renal failure type: unspecified Qualified Code(s): N17.9 - Acute kidney failure, unspecified Status: Acute (2) Acute UTI: Status: Acute (3) Urinary retention with incomplete bladder emptying: Status: Acute Plan Catheter remain for 3-4 weeks Procedures Date of Service Date of Service: 04/01/24
[2024-04-01 17:48] LABS: Immature Retic Fraction 7.3 % (2.3-13.4); Retic HGB Equivalent 28.9 pg (30.0-35.0); Reticulocyte Percent 0.5 % (0.5-1.8); Reticulocytes Absolute 0.016 X10*6/uL (0.026-0.095)
[2024-04-01 18:09] LABS: Lactate Dehydrogenase 358 U/L (118-273)
[2024-04-01 18:15] LABS: Ferritin 4838 ng/mL (20-250)
[2024-04-01 18:27] LABS: Haptoglobin 280 mg/dL (40-268)
[2024-04-01 20:48] LABS: Glucose, Whole Blood 106 mg/dL (60-115)
[2024-04-01] MEDS: Acetaminophen 1,000 MG/100 ML PIGGYBACK 400 MG IV (23:57)
[2024-04-02] VITALS (71 sets, daily range): BP systolic 74–173; BP diastolic 40–88; PULSE 81–155; RESP 13–29; TEMP 34.7–39.4; O2SAT 86–100; BMI 26.6
[2024-04-02 04:37] LABS: VBG Base Excess -8.1 mmol/L; VBG HCO3 15 mmol/L (22-26); VBG pCO2 26 mmHg; VBG pH 7.37 (7.32-7.43); VBG pO2 35 mmHg
[2024-04-02 04:52] LABS: Venous Blood Gas Refer to POC result
[2024-04-02 05:29] LABS: Hematocrit 30.1 % (42.0-52.0); Hemoglobin 10.6 g/dl (14.0-18.0); Mean Corpuscular HGB Conc 35.2 g/dl (31.0-36.0); Mean Platelet Volume 11.2 fL (9.4-12.4); Platelet Count 148 X10*3/uL (160-400); Red Blood Count 3.42 X10*6/uL (4.60-5.80); Red Cell Distribution Width 14.8 % (11.0-16.0); White Blood Count 28.4 X10*3/uL (4.8-10.8)
[2024-04-02 05:46] LABS: Alanine Aminotransferase 53 U/L (0-40); Albumin Level 3.7 g/dL (3.5-5.0); Alkaline Phosphatase 112 U/L (39-117); Anion Gap 18 (12-20); Aspartate Amino Transferase 111 U/L (5-37); Bilirubin Total 0.8 mg/dL (0.0-1.0); Blood Urea Nitrogen 54 mg/dL (9-16); Calcium 8.3 mg/dL (8.4-10.2); Carbon Dioxide 14 mmol/L (22-29); Chloride 107 mmol/L (96-108); Creatinine Clr Calc Pharmacy 18.9; Estimated Glomerular Filt Rate 17; Glucose Random 119 mg/dL (60-115); Phosphorus 2.3 mg/dL (2.7-4.5); Potassium 3.7 mmol/L (3.3-5.1); Sodium 135 mmol/L (135-145); Total Protein 5.8 g/dL (6.5-8.0)
[2024-04-02 05:49] LABS: Basophils Abs Manual 0.3 X10*3/uL (0.0-0.2); Basophils Percent Manual 1 % (0-2); Lymphocytes Absolute Manual 2.8 X10*3/uL (1.2-4.9); Lymphocytes Percent Manual 10 % (20-40); Monocytes Absolute Manual 0.6 X10*3/uL (0.1-1.2); Monocytes Percent Manual 2 % (2-11)
[2024-04-02 05:50] LABS: Band Neutrophils Percent 17 % (3-5); Neutrophils Absolute Manual 24.7 X10*3/uL (2.0-8.3); Neutrophils Percent Manual 70 % (45-73)
[2024-04-02 05:51] LABS: Burr Cells 3+ (>5) /OIF; Dohle Bodies PRESENT; RBC Morphology NOTED; Toxic Vacuolation PRESENT
[2024-04-02 05:52] LABS: Large Platelet PRESENT; Platelet Estimate SLIGHTLY DECREASED (NORMAL); Platelet Morphology Comment NOTED; Toxic Granulation PRESENT
[2024-04-02] MEDS: Lactated Ringers 1,000 ML 100 ML IVCONT (05:56)
[2024-04-02] MEDS: vancomycin HCL 1,000 MG, vancomycin HCL 750 MG in 0.9 % Sodium Chloride 500 ML 267.5 MG IV (05:57)
[2024-04-02] MEDS: Pantoprazole Sodium 40 MG/10 ML VIAL IVPUSH ×2 (06:00→15:37)
[2024-04-02] MEDS: HYDROmorphone HCl 0.5 MG/0.5 ML SYRINGE IVPUSH ×2 (06:11→12:15)
[2024-04-02] MEDS: Albuterol/Iprat 2.5/0.5MG 3 ML AMPUL.NEB INHALE (06:16)
[2024-04-02] MEDS: Furosemide 20 MG/2 ML VIAL IVPUSH (06:16)
[2024-04-02] MEDS: Sodium Bicarbonate 8.4% 50 MEQ/50 ML SYRINGE 100 MEQ IVPUSH (06:20)
[2024-04-02] MEDS: propofoL 200 MG/20 ML VIAL 50 MG IVPUSH (06:42)
[2024-04-02] MEDS: Rocuronium Bromide 50 MG/5 ML VIAL 90 MG IVPUSH (06:42)
[2024-04-02] MEDS: propofoL 200 MG/20 ML VIAL 100 MG IVPUSH (06:43)
[2024-04-02 06:44] LABS: B Type Natriuretic Peptide 553 pg/mL (<100)
[2024-04-02] MEDS: propofoL 1,000 MG/100 ML VIAL 13.46 MG IVCONT ×2 (06:51→10:18)
--- NOTE | 2024-04-02 06:56 | PM.CCN ---
Critical Care Event Note Summary Date of Service: 04/02/24 <Sai Julian MD - Last Filed: 04/02/24 08:49> Code activated: No <Sai Julian MD - Last Filed: 04/02/24 08:49> Narrative: This case had a high probability of a clinically significant, sudden, or life threatening deterioration of this patient's condition which required my full and direct attention, intervention and personal management. <JOANNA Felder - Last Filed: 04/02/24 19:28> Critical Care Time (minutes): 60 <JOANNA Felder - Last Filed: 04/02/24 19:28> Comment: 06:05 patient quickly decompensated, nurses called me at bedside as the patient became suddenly hypoxic requiring increase of his oxygen from 2 L to 12 L nasal cannula, subsequently to an OxyMask. Patient is having significant work of breathing with accessory muscle usage. Vital signs blood pressure 120 over 60, heart rate 120, respirations 38, O2 sat 84% on OxyMask 12 L; rectal temp 100.5 On exam Patient appears to have rigors. in significant distress 2+ JVD Tachycardic clear S1-S2 no murmurs rubs or gallops. he has minimal expiratory wheezing in the upper lung reyna, moderate at bilateral coarseness and crackles at the bases with a prominent rhonchi at the right lower lobe. Abdomen soft, positive bowel sounds. Patient is moving all 4 extremities upon request at the major joints, no crepitus, 1+ edema lower extremities distal tibia. No asymmetry. Laboratories from this morning were reviewed, bicarb is low but he is not acidotic. Creatinine above 3.53 White count appears to be coming down, H&H stable. Phosphorus 2.3 BNP added Stat chest x-ray shows significant pulmonary edema along with a right middle infiltrate which was not significantly apparent on previous x-ray. Assessment Acute hypoxic respiratory failure likely fluid overload/ARDS with underlying suspected pneumonia. Acute sepsis and bacteremia/septic shock Urinary tract infection Acute kidney injury Hypophosphatemia Plan of care Patient was placed on high-flow without any improvement, he is quickly desaturating into the 70s, using accessory muscles he will need to be emergently intubated. Patient is aware and awake enough to consent. Crush intubation took place, please see procedure for details. For some reason his airway appeared to be very inflamed at the posterior hypopharynx area with some blood residue us around it. A total of 150 mg of propofol was used to sedate him along with 90 mg of rocuronium for paralyzation. Blood cultures were reviewed, patient has Gram-positive cocci as well as Gram-negative organisms, the patient was switched from Rocephin to renally adjusted Zosyn and vancomycin. Repeat ABG Sputum culture and Gram stain Echo ordered Critical care time used for critical evaluation of this patient, diagnosis, treatment and coordination of care, review her records and documentation TOTAL CRITICAL CARE TIME 60 MIN . discussion and coordination with consultants, completely separate from any procedures performed. Patient's care was discussed in detail with Dr. Julian. He is aware of all the above as well as the plan of care for this patient.. <JOANNA Felder - Last Filed: 04/02/24 19:28>
--- NOTE | 2024-04-02 07:00 | CA_ITS ---
Transthoracic Echocardiogram Patient (Last, First, Middle): Dioni Carr, Gender: Male Date of : 1960 Age: 63 Procedure Date: 04/02/2024 Procedure Type: Transthoracic Echocardiogram Location: ICU Height: 167.64 cm Weight: 74.39 kg BSA: 1.84 m2 Heart Rate: bpm BP: 109 / 62 mmHg Assistant Finance Manager: SONAL Referring MD: Darrell MARSHALL Crewman [employer] [id number]: Rohan Fierro MD Symptoms: hypoxia CHF Study Quality: Fair, contrast ECG Rhythm: Sinus tachycardia Conclusions: - 1. Mildly reduced LV ejection fraction 45-50% with impaired relaxation filling pattern 2. Cardiac valvular Dopplers within normal limits 3. RV systolic pressure can not be accurately determined due to indeterminate right atrial pressures but does not appear to be significantly elevated 4. No gross pericardial effusion Findings Procedure Information Contrast agent, definity, is being given per protocol without apparent complications. Left Ventricle Normal left ventricular cavity size. There is normal left ventricular wall thickness. The left ventricular systolic function is mildly decreased. The visually estimated ejection fraction is between 45-50%. Spectral Doppler is indicative of an impaired relaxation filling pattern. Right Ventricle Mildly increased right ventricular cavity size. There is normal right ventricular systolic function. Atria The left atrium is normal in size. Interatrial shunt cannot be excluded. The right atrium was not well visualized. Aortic Valve The aortic valve structure and function is likely normal. There is no aortic valve stenosis. There is no aortic valve regurgitation. Mitral Valve Likely normal mitral valve structure and function. There is trace mitral valve regurgitation. There is no mitral valve stenosis. Pulmonic Valve The pulmonic valve was not well visualized. Tricuspid Valve There is trace tricuspid valve regurgitation. Indeterminate right atrial pressure. Great Vessels All visible segments of the aorta are normal in size. The pulmonary artery was not well visualized. There is no dilatation of the ascending aorta measuring 2.70 cm. Venous The inferior vena cava is moderately dilated and does not collapse with inspiration. Patient on positive pressure ventilation. Pericardium/Pleural There is no evidence of pericardial effusion. Prior Study Comparison No previous study in last 5 years for comparison. Measurements 2D Linear Measurements IVSd: 0.91 0.6-0.9/0.6-1.0 cm LVIDd: 4.99 3.9-5.3/4.2-5.9 cm LVIDd Index: 2.71 2.4-3.2/2.2-3.1 cm/m2 LVIDs: 3.63 2.0-3.6 cm LVPWd: 0.67 0.7-1.1 cm LA Diam: 3.40 2.7-3.8/3.0-4.0 cm LAIDs Index: 1.85 1.5-2.3 cm/m2 LV Mass: 165.45 67-162/88-224 g LV Mass Index: 89.92 43-95/49-115 g/m2 LVOT Diam: 2.10 3.0+(-)1.3 cm 2D Systolic Function EF 4C: 44.80 >55% EF 2C: 45.40 >55% EF BiP: 45.30 >55% Mitral Valve MV Pk E: 0.99 MV PK A: 0.92 MV Decel Time: 160.00 E/A: 1.10 E'Lateral: 10.80 E'Medial: 7.29 E/E' Med: 13.50 E/E' Lat: 9.10 PHT: 47.00 MVA PHT: 4.68 Decel [place]: 6.15 Aortic Valve AoV Pk Volodymyr: 1.53 AoV Pk Grad: 9.00 MARTA: 3.46 LVOT LVOT Pk Volodymyr: 1.46 LVOT Mn Volodymyr: 1.05 LVOT VTI: 0.23 LVOT Pk Grad: 9.00 LVOT Mn Grad: 5.00 LVOT Diam: 2.10 LVOT Area: 3.46 Diastolic Function MV Pk E: 0.99 MV Pk A: 0.92 E/A: 1.10 E'Medial: 7.29 E/E' Med: 13.50 E' Laterial: 10.80 E/E' Lat: 9.10 Right Ventricle TAPSE (mm): 25.40 TVS' Volodymyr: 14.90 Tricuspid Valve TR Pk Volodymyr: 2.33 TR Pk Grad: 22.00 Great Vessels Aorta Sinus of Valsalva: 2.70 2.0-3.5 cm Ao Asc: 2.70 2.1-3.4 cm Pulmonary Valve PV Pk Volodymyr: 1.13 Peak PV Grad: 5.00 Updated in Other Vendor System with Status of Final Rohan Fierro MD electronically signed on 04/02/2024 11:31:36 AM with status of Final
[2024-04-02] MEDS: dilTIAZem HCL 50 MG/10 ML VIAL 10 MG IVPUSH ×2 (07:02→07:44)
--- NOTE | 2024-04-02 07:08 | W.PM.CCHP ---
Procedures Date of Service Date of Service: 04/02/24 <JOANNA Felder - Last Filed: 04/02/24 07:20> 04/02/24 <Sai Julian MD - Last Filed: 04/02/24 08:52> Intubation Intubation Comments: Rapid decompensation and hypoxia, respiratory distress. Patient awake enough to consent verbally. <JOANNA Felder - Last Filed: 04/02/24 07:20> Consent for Procedure: Elective - informed consent obtained <JOANNA Felder - Last Filed: 04/02/24 07:20> Time out performed: Yes <JOANNA Felder - Last Filed: 04/02/24 07:20> Sedative: propofol <JOANNA Felder - Last Filed: 04/02/24 07:20> Mg given: 150 <JOANNA Felder - Last Filed: 04/02/24 07:20> Paralytic: rocuronium <JOANNA Felder - Last Filed: 04/02/24 07:20> Mg given: 90 <JOANNA Felder - Last Filed: 04/02/24 07:20> Laryngoscope: fiber optic video scope <JOANNA Felder - Last Filed: 04/02/24 07:20> ET tube size: 7 <JOANNA Felder - Last Filed: 04/02/24 07:20> ET tube uncuffed: Yes <JOANNA Felder - Last Filed: 04/02/24 07:20> Tube secured depth (cm): 22 <JOANNA Felder - Last Filed: 04/02/24 07:20> Tube secured location: lips <JOANNA Felder - Last Filed: 04/02/24 07:20> Tube placement confirmation: equal breath sounds bilaterally and confirmation by capnometry <JOANNA Felder - Last Filed: 04/02/24 07:20> Patient tolerated procedure: well and other (CXR ETT 4 cm above the lazara) <JOANNA Felder - Last Filed: 04/02/24 07:20> Intubation complications: none, difficult intubation and other <JOANNA Felder - Last Filed: 04/02/24 07:20>
--- NOTE | 2024-04-02 07:28 | PC.NURSE ---
2000: Upon initial assessment, patient A+Ox4, appropriate, legally blind and spontaneously awakens. Afebrile, NSR on tele, HR 80s-100s, levophed ordered and titrated per OCT to maintain MAP>65. Oxygen titrated to 5L NC to maintain SPO2> 92%, lung sounds clear, dim in the bases, patient denies shortness of breath. Estevez catheter in place draining concentrated urine with sediment, approx 25mL/hr output, PA aware. Denies pain. 0000: Patient complaining of 10/10 BLE pain, given IV tylenol x1 with good effect (see MAR), patient able to sleep and resting comfortably. Urine output 50-60mL/hr. Call falcon within reach, bed alarm on, bed locked in lowest position. 0515: Patient desaturating to 86% on 5L NC, RR 30s. Patient denies shortness of breath, but accessory muscle use noted. Oxygen titrated to 12L NC to maintain SPO2 > 92%, fine crackles auscultated and wheezing noted. PA notified of increased O2 requirements and WOB. 0600: Updraft ordered and RT notified and to the bedside. Dilaudid 0.5mg IVP, Lasix 20mg IVP administered per OCT ,and CXR ordered. Patient still desaturating to 86%, O2 titrated up to 15L NC. 0615: HFNC applied by RT maxed, SPO2 92%, still with accessory muscle use, tachypnea and c/o SOB, breaking speech to breathe and tremulous. Rectal temp 100.5. 0634: PA to bedside, patient consented verbally to intubation. 0642: Propofol 150mg IVP, rocuronium 90mg IVP given total for RSI. 0657: ETT #7.0 22cm @ lip, bilateral breath sounds auscultation and positive color change via capnography. Propofol gtt started for sedation per OCT. OGT inserted, all lines/tubes confirmed by PCXR. Core esophageal probe inserted, Tmax 101.7. 0700: Bedside report given to oncoming RN.
[2024-04-02 07:45] LABS: Glucose, Whole Blood 118 mg/dL (60-115)
[2024-04-02 07:54] LABS: ABG Base Excess -6.4 mmol/L; ABG HCO3 21 mmol/L (22-26); ABG pCO2 50 mmHg (32-45); ABG pH 7.23 (7.35-7.45); ABG pO2 69 mmHg (83-108)
[2024-04-02] MEDS: Potassium Phosphate/NS 15 MMOL/250 ML PLAST..BAG 62.5 MMOL IV (07:57)
[2024-04-02] MEDS: Piperacillin Sodium/Tazobactam 2.25 GM in 0.9 % Sodium Chloride 50 ML IV ×3 (08:02→23:04)
[2024-04-02] MEDS: 0.9 % Sodium Chloride Flush 3 ML SYRINGE IVFLUSH ×3 (08:09→23:05)
--- NOTE | 2024-04-02 08:52 | P.PNCC_ITS ---
Subjective Subjective Date of Service: 04/02/24 Interval History: Patient had an acute decompensation the respiratory status for which he needed to be emergently intubated this morning Episodes of SVT with heart rates above 150 treated with Cardizem as needed On propofol for sedation Leukocytosis improving, creatinine fluctuating Critical Care Time (minutes): 45 Physical Exam 2 Vital Signs: Vital Signs: Last Vital Signs Temp 100.9 F H 04/02/24 08:00 Pulse 128 H 04/02/24 08:00 Resp 20 04/02/24 08:00 BP 122/60 04/02/24 08:00 Pulse Ox 96 04/02/24 08:00 O2 Del Method Mechanical Ventil ation 04/02/24 08:00 O2 Flow Rate 15 04/02/24 06:11 FiO2 100 04/02/24 08:00 BMI result Body Mass Index 26.6 General: acute distress, ill appearing and tired appearing Nutritional Appearance: well nourished and normal weight Eyes: appearance normal, both eyes and all related structures; Alignment and Position: alignment normal and position normal Neck: No lymphadenopathy, no thyromegaly Resp: bilateral air entry equal, bilateral crackles heard right more than left, ET tube in place Cardio: Regular rate, regular rhythm; Heart sounds: S1 normal heart sound present and S2 normal heart sound present GI: soft, nontender, no guarding, no hepatosplenomegaly : bladder normal to inspection, bladder normal to palpation, no renal angle tenderness Skin: no rashes or lesions noted and elasticity normal Neuro: Sedated, no focal deficits Objective Data Labs 04/02/24 04:28 04/02/24 04:28 Labs: Laboratory Results - last 24 hr 04/01/24 04/01/24 04/01/24 04:57 14:32 15:06 WBC RBC Hgb Hct MCV MCH MCHC RDW Plt Count MPV Immature Gran % (Auto) Neut % (Auto) Lymph % (Auto) [place] % (Auto) Eos % (Auto) Baso % (Auto) Lymph # (Auto) [place] # (Auto) Eos # (Auto) Baso # (Auto) Abs Immat Gran (auto) Absolute Neuts (auto) Absolute Nucleated RBC Nucleated RBC % (auto) Neutrophils % (Manual) Band Neutrophils % Lymphocytes % (Manual) Monocytes % (Manual) Basophils % (Manual) Abs Neuts (Manual) Lymphocytes # (Manual) Monocytes # (Manual) Basophils # (Manual) Toxic Granulation Toxic Vacuolation Dohle Bodies Platelet Estimate Large Platelets Plt Morphology Comment RBC Morphology [place] Cells Absolute Retic Percent Retic Immature Retic Fraction Retic Hgb Equivalent O2 Saturation ABG pH at Pt Temp ABG pCO2 at Pt Temp ABG pO2 at Pt Temp ABG HCO3 ABG Base Excess (Actual) VBG pH VBG pCO2 VBG pO2 VBG HCO3 VBG O2 Saturation VBG Base Excess Sodium Potassium Chloride Carbon Dioxide Anion Gap BUN Creatinine Estim Creat Clear Calc Estimated GFR POC Glucose 100 Random Glucose Haptoglobin Lactic Acid 1.4 Calcium Phosphorus Magnesium Iron 8 L TIBC 140 L % Saturation 6 L Unsat Iron Binding 132 Ferritin 4838 H Total Bilirubin AST ALT Alkaline Phosphatase Lactate Dehydrogenase B-Natriuretic Peptide Total Protein Albumin 04/01/24 04/01/24 04/01/24 16:36 16:58 17:20 WBC 34.9 H* RBC 3.04 L Hgb 9.6 L Hct 27.9 L MCV 91.8 MCH 31.6 MCHC 34.4 RDW 15.0 Plt Count 124 L MPV 10.8 Immature Gran % (Auto) Neut % (Auto) Lymph % (Auto) [place] % (Auto) Eos % (Auto) Baso % (Auto) Lymph # (Auto) [place] # (Auto) Eos # (Auto) Baso # (Auto) Abs Immat Gran (auto) Absolute Neuts (auto) Absolute Nucleated RBC 0.000 Nucleated RBC % (auto) 0.0 Neutrophils % (Manual) Band Neutrophils % Lymphocytes % (Manual) Monocytes % (Manual) Basophils % (Manual) Abs Neuts (Manual) Lymphocytes # (Manual) Monocytes # (Manual) Basophils # (Manual) Toxic Granulation Toxic Vacuolation Dohle Bodies Platelet Estimate Large Platelets Plt Morphology Comment RBC Morphology Surend[place] Cells Absolute Retic 0.016 L Percent Retic 0.5 Immature Retic Fraction 7.3 Retic Hgb Equivalent 28.9 L O2 Saturation ABG pH at Pt Temp ABG pCO2 at Pt Temp ABG pO2 at Pt Temp ABG HCO3 ABG Base Excess (Actual) VBG pH VBG pCO2 VBG pO2 VBG HCO3 VBG O2 Saturation VBG Base Excess Sodium 132 L Potassium 4.2 D Chloride 107 Carbon Dioxide 13 L Anion Gap 16 BUN 45 H Creatinine 3.32 H Estim Creat Clear Calc 20.2 Estimated GFR 19 POC Glucose 123 H Random Glucose 126 H Haptoglobin 280 H Lactic Acid 1.4 Calcium 8.0 L D Phosphorus Magnesium Iron TIBC % Saturation Unsat Iron Binding Ferritin Total Bilirubin 0.9 AST 95 H ALT 41 H Alkaline Phosphatase 87 Lactate Dehydrogenase 358 H B-Natriuretic Peptide Total Protein 5.9 L Albumin 3.9 04/01/24 04/02/24 04/02/24 20:41 04:24 04:28 WBC 28.4 H RBC 3.42 L Hgb 10.6 L Hct 30.1 L MCV 88.0 MCH 31.0 MCHC 35.2 RDW 14.8 Plt Count 148 L MPV 11.2 Immature Gran % (Auto) Cancelled Neut % (Auto) Cancelled Lymph % (Auto) Cancelled [place] % (Auto) Cancelled Eos % (Auto) Cancelled Baso % (Auto) Cancelled Lymph # (Auto) Cancelled [place] # (Auto) Cancelled Eos # (Auto) Cancelled Baso # (Auto) Cancelled Abs Immat Gran (auto) Cancelled Absolute Neuts (auto) Cancelled Absolute Nucleated RBC 0.000 Nucleated RBC % (auto) 0.0 Neutrophils % (Manual) 70 Band Neutrophils % 17 H Lymphocytes % (Manual) 10 L Monocytes % (Manual) 2 Basophils % (Manual) 1 Abs Neuts (Manual) 24.7 H Lymphocytes # (Manual) 2.8 Monocytes # (Manual) 0.6 Basophils # (Manual) 0.3 H Toxic Granulation PRESENT Toxic Vacuolation PRESENT Dohle Bodies PRESENT Platelet Estimate SLIGHTLY DECREASED Large Platelets PRESENT Plt Morphology Comment NOTED RBC Morphology NOTED Surendra Cells 3+ (>5) Absolute Retic Percent Retic Immature Retic Fraction Retic Hgb Equivalent O2 Saturation ABG pH at Pt Temp ABG pCO2 at Pt Temp ABG pO2 at Pt Temp ABG HCO3 ABG Base Excess (Actual) VBG pH 7.37 VBG pCO2 26 VBG pO2 35 VBG HCO3 15 L VBG O2 Saturation 59.0 VBG Base Excess -8.1 Sodium 135 Potassium 3.7 Chloride 107 Carbon Dioxide 14 L Anion Gap 18 BUN 54 H Creatinine 3.55 H Estim Creat Clear Calc 18.9 Estimated GFR 17 POC Glucose 106 Random Glucose 119 H Haptoglobin Lactic Acid Calcium 8.3 L Phosphorus 2.3 L Magnesium 2.0 Iron TIBC % Saturation Unsat Iron Binding Ferritin Total Bilirubin 0.8 AST 111 H ALT 53 H Alkaline Phosphatase 112 Lactate Dehydrogenase B-Natriuretic Peptide 553 H Total Protein 5.8 L Albumin 3.7 04/02/24 04/02/24 07:41 07:45 WBC RBC Hgb Hct MCV MCH MCHC RDW Plt Count MPV Immature Gran % (Auto) Neut % (Auto) Lymph % (Auto) [place] % (Auto) Eos % (Auto) Baso % (Auto) Lymph # (Auto) [place] # (Auto) Eos # (Auto) Baso # (Auto) Abs Immat Gran (auto) Absolute Neuts (auto) Absolute Nucleated RBC Nucleated RBC % (auto) Neutrophils % (Manual) Band Neutrophils % Lymphocytes % (Manual) Monocytes % (Manual) Basophils % (Manual) Abs Neuts (Manual) Lymphocytes # (Manual) Monocytes # (Manual) Basophils # (Manual) Toxic Granulation Toxic Vacuolation Dohle Bodies Platelet Estimate Large Platelets Plt Morphology Comment RBC Morphology [place] Cells Absolute Retic Percent Retic Immature Retic Fraction Retic Hgb Equivalent O2 Saturation 91.0 ABG pH at Pt Temp 7.23 L ABG pCO2 at Pt Temp 50 H ABG pO2 at Pt Temp 69 L ABG HCO3 21 L ABG Base Excess (Actual) -6.4 VBG pH VBG pCO2 VBG pO2 VBG HCO3 VBG O2 Saturation VBG Base Excess Sodium Potassium Chloride Carbon Dioxide Anion Gap BUN Creatinine Estim Creat Clear Calc Estimated GFR POC Glucose 118 H Random Glucose Haptoglobin Lactic Acid Calcium Phosphorus Magnesium Iron TIBC % Saturation Unsat Iron Binding Ferritin Total Bilirubin AST ALT Alkaline Phosphatase Lactate Dehydrogenase B-Natriuretic Peptide Total Protein Albumin Microbiology Microbiology Results: Microbiology 04/01/24 00:49 Blood - Venous Blood Culture - Preliminary Prelim: GNR Gram Stain only Prelim: GPC Gram Stain only 04/01/24 00:50 Blood - Venous Blood Culture - Preliminary Prelim: GNR Gram Stain only Progress Note: A&P Assessment and plan (1) Septic shock: Status: Acute (2) Acute renal failure: Status: Acute (3) Acute sepsis: Status: Acute (4) Acute UTI: Status: Acute (5) Major depression, recurrent: Status: Acute Plan 63-year-old gentleman with past medical history of hypertension, hypothyroidism presented to the ED anuria and diarrhea, admitted to medical ICU for the management of septic shock Acute encephalopathy: Secondary to metabolic encephalopathy from severe sepsis Propofol for sedation, as needed fentanyl for analgesia ICU delirium precautions Septic shock: Patient was on Levophed this morning, currently is titrated off Goal map is to keep above 65 mm Hg SVT: treated with cardizem pushes as needed sinus rhythm Acute hypoxemic respiratory failure: Secondary to bilateral pneumonia right more than left Currently intubated and on ventilator support FiO2 100%, peep 14, tidal volume 380, rate 20 Got intubated this morning, we will get an ABG and adjust vent settings accordingly We will wean FiO2 as tolerated during the day GI: We will start on tube feeds Nepro Acute pyelonephritis: CT abdomen showing bilateral perinephric fat stranding, UA dirty WBC count trending down when compared to yesterday Blood cultures are positive for Gram-negative rods and also Gram-positive cocci Antibiotics escalated to vanc and Zosyn given his decompensation We will get MRSA nares, if negative we will discontinue vanc Left sided hydronephrosis: bladder decompressed with Estevez, had urinary retention upon admission Urology seen the patient and advised to leave the Estevez in for 3 weeks Acute kidney injury: Secondary to ATN from severe sepsis and septic shock creatinine slightly improved when compared to yesterday but there was a small bump this morning No acute indication for renal replacement therapy CT abdomen not show any evidence of obstruction Closely monitor I's and O's, avoid nephrotoxic medications Lines: Peripheral Estevez Prophylaxis: Heparin, SCDs Patient has multiple organ failures including acute encephalopathy, acute hypoxemic respiratory failure, acute renal failure, septic shock. His prognosis is guarded. Total critical care time spent is about 45 minutes on managing acute decompensation of respiratory status, ventilator management, sedation management, close hemodynamic monitoring,managing episodes of SVT, vasopressor management at this time is excluding any procedural time. Quality Stroke Does the patient have a stroke diagnosis?: No VTE Prior VTE?: No VTE Risk Level:: Medical - moderate - high VTE Device Contraindication: N/A - Device Ordered VTE Drug Contraindication: Treatment Not Indicated
--- NOTE | 2024-04-02 09:09 | PHA.PROG ---
Admission Date/Time: April 01, 2024 03:28 Indication: Bacteremia Weight in k.8 kg Adjusted body weight in Kg: [place] body weight in Kg: Obesity Dosing Indication % IBW: BMI 26.6 Serum Creatinine - Last 168 Hours 04/01/24 04/01/24 04/01/24 00:45 02:12 04:57 Creatinine 4.47 H* 3.91 H 3.41 H 04/01/24 04/02/24 16:36 04:28 Creatinine 3.32 H 3.55 H Estimated CrCl and GFR - Last 168 Hours 04/01/24 04/01/24 04/01/24 00:45 02:12 04:57 Estim Creat Clear Calc 15.0 17.2 19.7 Estimated GFR 13 16 18 04/01/24 04/02/24 16:36 04:28 Estim Creat Clear Calc 20.2 18.9 Estimated GFR 19 17 Vancomycin Loading Dose: 1705mg X1 Current Vancomycin Dosing Regimen: possible 1000mg once and then 500 mg Q24h pending trough on 04/03 @0500 Vancomycin Monitoring using AUC goal of 400 - 600 range with trough as surrogate marker: 435 Date and Time for next Vancomycin Level to be drawn: 04/03 @0500 Pharmacist Comments on Vancomycin Plan: Indication - bacteremia, patient's renal function is also very poor. Want to get vanco trough on 04/03 @0500 and based on trough either dose again with a higher dose of 1000mg to get patient in theraprutic AUC range, if trough comes back on higher end, then proceed with 500 mg Q24H. Vancomycin dosing will take advantage of [employer] as a clinical decision support tool that uses Bayesian modeling to calculate individual patient's pharmacokinetic parameters and forecast the patient's drug concentration time course with the target goal AUC 24 range of 400 - 600 mg/L/hr.
--- NOTE | 2024-04-02 09:44 | MHC.CLN ---
NUTRITION PATIENT IS INTUBATED AND SEDATED. DISCUSSED AT MD ROUNDS. START NEPRO TUBE FEEDING. RECOMMEND NEPRO AT MAX GOAL RATE 35 ML PER HOUR, FREE WATER FLUSHES 240 ML Q 6 HOURS. FORMULA/FLUSH PROVIDES 1512 KCALS (TOTAL 1986 KCALS WITH SEDATION), 26.6 KCALS/KG; 68 G PROTEIN (.91 G/KG); FREE WATER FROM FORMULA 611 ML PLUS 960 ML [id number] ML (21 ML/KG). FOLLOW FOR TUBE FEED TOLERANCE, LABS. SEE CLINICAL NUTRITION ASSESSMENT 04/02/24.
--- NOTE | 2024-04-02 10:21 | MHC.CM.PN ---
PER MD ROUNDS, PT IS NOW INTUBATED AND SEDATED. CM MET WITH SISTER AT BEDSIDE WHO PROVIDES CONTACT INFORMATION: [facility] [place] [facility] HAS BEEN UPDATED. JUAN GOSS [phone]. CM WILL CONTINUE TO FOLLOW FOR ANY CHANGES TO DC PLAN.
--- NOTE | 2024-04-02 10:28 | PM.CNNEP ---
History of Present Illness Reason for Consult Consult date: 04/02/24 Reason for consult: EBEN Chief Complaint Chief complaint: unable to urinate History of Present Illness Narrative: 63-year-old male with pertinent history of hypothyroidism, hypertension, mood disorder, peripheral neuropathy who presents to the emergency department for evaluation of inability to urinate and blood in stools. Patient has been having generalized abdominal discomfort and initially had urinary hesitancy but was unable to urinate for the last 3 days. Has associated nausea and chills. Patient's son also noticed blood in stools on the day of presentation. Transferred to ICU. Now on pressors and intubated. Review of Systems Review of Systems Yes unobtainable due to endotracheal tube PMFSH Past Medical History Medical History Legally blind Asthma HTN (hypertension) Social History Social History Household Members: None Housing: Apartment Patient Tobacco Use Status: Current everyday Tobacco user Tobacco use type: Cigarette Cigarettes Per Day: 2 e-Cigarette/Vaping Use: Never Used service: No Current occupational status: disabled Cognitive needs: No Hearing needs: No Vision needs: 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) Meds Allergies Allergy/AdvReac Type Severity Reaction Status Date / Time No Known Allergies Allergy Verified 03/31/24 23:39 [No Known Allergies*] Active Medications: Current Medications Acetaminophen (Acetaminophen 325 Mg Tablet) 650 mg PO Q6H PRN PRN Reason: Pain, Mild (Pain Scale 1-3), fever or headache Calcium Carbonate (Calcium Carbonate 750 Mg Tab.Chew) 750 mg PO Q4H PRN PRN Reason: Heartburn Lactated Ringer's (Lr) 1,000 mls @ 100 mls/hr IVCONT .Q10H RELL Last Infusion: 04/02/24 08:25 Dose: 0 mls/hr Norepinephrine Bitartrate (Levophed) 8 mg in 250 mls @ 0 mls/hr IVCONT .Q0M RELL; Protocol Last Titration: 04/02/24 07:29 Dose: 0 mcg/kg/min, 0 mls/hr Piperacillin Sod/Tazobactam (Sod 2.25 gm/ Sodium Chloride) 50 mls @ 100 mls/hr IV Q8H RELL Last Infusion: 04/02/24 08:37 Dose: Infused Propofol (Diprivan) 1,000 mg in 100 mls @ 0 mls/hr IVCONT .Q0M [facility]; Protocol Last Admin: 04/02/24 10:18 Dose: 30 mcg/kg/min, 13.46 mls/hr Vancomycin HCl 1,000 mg/ (Sodium Chloride) 270 mls @ 270 mls/hr IV ONCE ONE Stop: 04/03/24 06:59 Magnesium Hydroxide (Milk Of Magnesia 30 Ml Oral.Susp) 30 ml PO DAILY PRN PRN Reason: Constipation Melatonin (Melatonin 3 Mg Tablet) 6 mg PO BEDTIME PRN PRN Reason: Insomnia Ondansetron HCl (Ondansetron Hcl 4 Mg/2 Ml Vial) 4 mg IVPUSH Q8H PRN PRN Reason: Nausea and Vomiting Pantoprazole Sodium (Pantoprazole Sodium 40 Mg/10 Ml Vial) 40 mg IVPUSH BID@0630,1630 [facility] Last Admin: 04/02/24 06:00 Dose: 40 mg Pharmacy Consult (Consult Rx Vancomycin Dosing) 1 each MISCELLANE DAILY PRN PRN Reason: Consult order Sodium Chloride (0.9 % Sodium Chloride Flush 3 Ml Syringe) 3 ml IVFLUSH QSHIFT [facility] Last Admin: 04/02/24 08:09 Dose: 3 ml Tamsulosin HCl (Tamsulosin Hcl 0.4 Mg Capsule) 0.4 mg PO DAILY [facility] Last Admin: 04/01/24 13:11 Dose: 0.4 mg Home Medications ?Medication ?Instructions ?Recorded ?Confirmed ?Last Taken ?Type calcium carbonate 600 mg-vitamin 1 tab PO BID 04/01/24 04/01/24 Unknown History D3 10 mcg (400 unit) tablet ibuprofen 800 mg tablet 800 mg PO DAILY PRN pain 04/01/24 04/01/24 Unknown History levothyroxine 112 mcg tablet 112 mcg PO DAILY 04/01/24 04/01/24 Unknown History Physical Exam Vital Signs: Last Vital Signs Temp 100.4 F 04/02/24 10:00 Pulse 111 H 04/02/24 10:00 Resp 18 04/02/24 10:00 BP 112/67 04/02/24 09:57 Pulse Ox 99 04/02/24 10:00 O2 Del Method Mechanical Ventilation 04/02/24 10:00 O2 Flow Rate 15 04/02/24 06:11 FiO2 100 04/02/24 10:00 BMI result Body Mass Index 26.6 Const General: ill appearing Neck Neck: Yes supple Resp Auscultation: clear to auscultation bilaterally Cardio Palpation: no palpable S3 Heart sounds: no rubs GI Palpation (GI): Soft to palpation Auscultation: normal bowel sounds Neuro Motor exam (neuro): no asterixis Results Lab Results 04/02/24 04:28 04/02/24 04:28 Lab results: Chemistry 04/01/24 04/01/24 04/01/24 00:45 02:12 04:57 Sodium 135 129 L 133 L Potassium 3.2 L 3.4 3.0 L Carbon Dioxide 15 L 13 L 13 L BUN 46 H 42 H 40 H Creatinine 4.47 H* 3.91 H 3.41 H Calcium 8.4 D 7.2 L D 7.5 L Phosphorus 04/01/24 04/02/24 16:36 04:28 Sodium 132 L 135 Potassium 4.2 D 3.7 Carbon Dioxide 13 L 14 L BUN 45 H 54 H Creatinine 3.32 H 3.55 H Calcium 8.0 L D 8.3 L Phosphorus 2.3 L Hematology 04/01/24 04/01/24 04/01/24 00:45 04:57 16:36 WBC 34.3 H* 36.6 H* 34.9 H* Hgb 11.6 L D 10.7 L 9.6 L Plt Count 156 L D 147 L 124 L 04/02/24 04:28 WBC 28.4 H Hgb 10.6 L Plt Count 148 L Urinalysis 04/01/24 00:39 Urine Color Dark Yellow Urine Appearance Turbid Urine pH 5.5 Ur Specific [place] 1.020 Urine Protein 100 (2+) H Urine Glucose (UA) Negative Urine Ketones Trace Urine Blood Large (3+) H Urine Nitrite Negative Ur Leukocyte Esterase Large (3+) H Urine RBC 11-20 H Urine WBC >50 H Ur Squamous Epith Cells 6-10 Hyaline Casts 6-10 Assessment and Plan (1) Acute renal failure: Qualifiers: Acute renal failure type: unspecified Qualified Code(s): N17.9 - Acute kidney failure, unspecified Status: Acute (2) Septic shock: Status: Acute (3) Anemia: Status: Acute Plan EBEN primarily due to ATN in a setting of sepsis shock. Currently nonoliguric. No absolute indication for dialysis. Agree with current medical management. Maintain blood pressure more than 100 mm Hg systolic. Continue to avoid nephrotoxic agents. Watch renal function closely along with urine output Mild acidosis due to combined metabolic and respiratory Procedures Date of Service Date of Service: 04/02/24
[2024-04-02 11:31] LABS: ABG Base Excess -5.4 mmol/L; ABG HCO3 18 mmol/L (22-26); ABG pCO2 30 mmHg (32-45); ABG pH 7.38 (7.35-7.45); ABG pO2 76 mmHg (83-108)
[2024-04-02 11:33] LABS: Glucose, Whole Blood 110 mg/dL (60-115)
[2024-04-02] MEDS: Acetaminophen 325 MG TABLET 650 MG PO ×2 (11:56→21:37)
[2024-04-02] MEDS: Tamsulosin HCL 0.4 MG CAPSULE PO (11:57)
[2024-04-02 12:52] LABS: MRSA Nasal PCR NEGATIVE (Negative); SA Nasal PCR NEGATIVE (Negative)
[2024-04-02] MEDS: Heparin Sodium,Porcine 5,000 UNIT/ML VIAL 5000 UNIT SUBCUT ×2 (13:20→21:05)
[2024-04-02] MEDS: propofoL 1,000 MG/100 ML VIAL 22.44 MG IVCONT ×3 (14:48→22:25)
[2024-04-02 15:23] LABS: ABG Refer to POC result
[2024-04-02 15:23] LABS: ABG Refer to POC result
[2024-04-02] MEDS: Norepinephrine Bitartrate/D5W 8 MG/250 ML PLAST..BAG 7.01 MG IVCONT (16:22)
[2024-04-02 18:19] LABS: Glucose, Whole Blood 197 mg/dL (60-115)
[2024-04-02 19:56] LABS: VBG Base Excess -8.9 mmol/L; VBG HCO3 15 mmol/L (22-26); VBG pCO2 27 mmHg; VBG pH 7.34 (7.32-7.43); VBG pO2 81 mmHg
[2024-04-02 20:00] LABS: Hematocrit 32.8 % (42.0-52.0); Hemoglobin 11.6 g/dl (14.0-18.0); Mean Corpuscular HGB Conc 35.4 g/dl (31.0-36.0); Mean Corpuscular Hemoglobin 30.9 pg (27.0-33.0); Mean Corpuscular Volume 87.5 fL (80.0-98.0); Mean Platelet Volume 11.1 fL (9.4-12.4); Platelet Count 139 X10*3/uL (160-400); Red Blood Count 3.75 X10*6/uL (4.60-5.80); Red Cell Distribution Width 14.7 % (11.0-16.0)
[2024-04-02 20:12] LABS: Alanine Aminotransferase 70 U/L (0-40); Albumin Level 3.3 g/dL (3.5-5.0); Alkaline Phosphatase 173 U/L (39-117); Anion Gap 19 (12-20); Aspartate Amino Transferase 123 U/L (5-37); Bilirubin Total 1.2 mg/dL (0.0-1.0); Blood Urea Nitrogen 60 mg/dL (9-16); Calcium 8.4 mg/dL (8.4-10.2); Carbon Dioxide 15 mmol/L (22-29); Chloride 105 mmol/L (96-108); Creatinine Clr Calc Pharmacy 18.9; Estimated Glomerular Filt Rate 17; Glucose Random 245 mg/dL (60-115); Magnesium 2.1 mg/dL (1.6-2.6); Phosphorus 3.8 mg/dL (2.7-4.5); Potassium 3.4 mmol/L (3.3-5.1); Sodium 136 mmol/L (135-145); Total Protein 5.5 g/dL (6.5-8.0)
[2024-04-02 20:26] LABS: WBC ABN SCTR FOR CBC 1
[2024-04-02 20:35] LABS: Band Neutrophils Percent 5 % (3-5); Lymphocytes Percent Manual 5 % (20-40); Monocytes Percent Manual 1 % (2-11); Neutrophils Percent Manual 89 % (45-73)
[2024-04-02 20:37] LABS: RBC Morphology NOTED
[2024-04-02 20:38] LABS: Burr Cells 3+ (>5) /OIF; Tear Drop Cells 2+ (3-5) /OIF
[2024-04-02 20:39] LABS: Platelet Estimate NORMAL (NORMAL); Platelet Morphology Comment NORMAL; Schistocytes 1+ (0-2) /OIF
[2024-04-02 20:41] LABS: Dohle Bodies PRESENT; Toxic Vacuolation PRESENT
[2024-04-02 20:43] LABS: Lymphocytes Absolute Manual 1.2 X10*3/uL (1.2-4.9); Monocytes Absolute Manual 0.2 X10*3/uL (0.1-1.2); Neutrophils Absolute Manual 22.4 X10*3/uL (2.0-8.3); White Blood Count 23.8 X10*3/uL (4.8-10.8)
[2024-04-02 21:51] LABS: Venous Blood Gas Refer to POC result
[2024-04-02] MEDS: Norepinephrine Bitartrate/D5W 8 MG/250 ML PLAST..BAG 19.64 MG IVCONT (23:08)
[2024-04-03] VITALS (49 sets, daily range): BP systolic 82–156; BP diastolic 55–102; PULSE 67–155; RESP 13–26; TEMP 34.7–39.1; O2SAT 88–96
[2024-04-03 00:14] LABS: Glucose, Whole Blood 149 mg/dL (60-115)
[2024-04-03] MEDS: HYDROmorphone HCl 0.5 MG/0.5 ML SYRINGE IVPUSH (01:06)
[2024-04-03] MEDS: fentaNYL citrate/NS 1,000 MCG/100 ML PLAST..BAG 10 MCG IVCONT (02:10)
[2024-04-03] MEDS: Albuterol/Iprat 2.5/0.5MG 3 ML AMPUL.NEB INHALE (02:27)
[2024-04-03] MEDS: Acetaminophen 325 MG TABLET 975 MG PO (02:28)
[2024-04-03] MEDS: propofoL 1,000 MG/100 ML VIAL 22.44 MG IVCONT ×6 (02:48→22:51)
[2024-04-03] MEDS: dilTIAZem HCL 50 MG/10 ML VIAL 10 MG IVPUSH (02:53)
[2024-04-03] MEDS: Rocuronium Bromide 50 MG/5 ML VIAL IVPUSH (03:05)
[2024-04-03 05:09] LABS: VBG Base Excess -6.3 mmol/L; VBG HCO3 19 mmol/L (22-26); VBG pCO2 37 mmHg; VBG pH 7.31 (7.32-7.43); VBG pO2 41 mmHg
[2024-04-03 05:21] LABS: Hematocrit 33.2 % (42.0-52.0); Hemoglobin 11.9 g/dl (14.0-18.0); Mean Corpuscular HGB Conc 35.8 g/dl (31.0-36.0); Mean Corpuscular Hemoglobin 31.2 pg (27.0-33.0); Mean Corpuscular Volume 86.9 fL (80.0-98.0); Mean Platelet Volume 11.6 fL (9.4-12.4); PLT CLUMP 1; Red Blood Count 3.82 X10*6/uL (4.60-5.80); Red Cell Distribution Width 14.6 % (11.0-16.0); White Blood Count 18.1 X10*3/uL (4.8-10.8)
[2024-04-03 05:38] LABS: Alanine Aminotransferase 81 U/L (0-40); Albumin Level 3.3 g/dL (3.5-5.0); Alkaline Phosphatase 234 U/L (39-117); Anion Gap 18 (12-20); Aspartate Amino Transferase 137 U/L (5-37); Bilirubin Total 1.7 mg/dL (0.0-1.0); Blood Urea Nitrogen 60 mg/dL (9-16); Calcium 8.4 mg/dL (8.4-10.2); Carbon Dioxide 19 mmol/L (22-29); Chloride 105 mmol/L (96-108); Creatinine Clr Calc Pharmacy 19.1; Estimated Glomerular Filt Rate 18; Glucose Random 136 mg/dL (60-115); Magnesium 2.1 mg/dL (1.6-2.6); Phosphorus 4.2 mg/dL (2.7-4.5); Sodium 138 mmol/L (135-145); Total Protein 6.1 g/dL (6.5-8.0)
[2024-04-03] MEDS: Heparin Sodium,Porcine 5,000 UNIT/ML VIAL 5000 UNIT SUBCUT ×3 (05:40→20:30)
[2024-04-03] MEDS: Pantoprazole Sodium 40 MG/10 ML VIAL IVPUSH ×2 (05:43→15:42)
[2024-04-03 05:49] LABS: Venous Blood Gas Refer to POC result
[2024-04-03 05:55] LABS: Band Neutrophils Percent 17 % (3-5); Eosinophils Absolute Manual 0.2 X10*3/uL (0.0-0.4); Eosinophils Percent Manual 1 % (0-4); Lymphocytes Absolute Manual 0.5 X10*3/uL (1.2-4.9); Lymphocytes Percent Manual 3 % (20-40); Monocytes Absolute Manual 0.7 X10*3/uL (0.1-1.2); Monocytes Percent Manual 4 % (2-11); Neutrophils Absolute Manual 16.7 X10*3/uL (2.0-8.3); Neutrophils Percent Manual 75 % (45-73)
[2024-04-03 05:57] LABS: Acanthocytes 1+ (0-2) /OIF; Burr Cells 2+ (3-5) /OIF; Dohle Bodies PRESENT; Large Platelet PRESENT; Platelet Estimate SLIGHTLY DECREASED (NORMAL); Platelet Morphology Comment NOTED; RBC Morphology NOTED; Smudge Cells PRESENT; Tear Drop Cells 1+ (0-2) /OIF; Toxic Vacuolation PRESENT
[2024-04-03 05:58] LABS: Platelet Count 112 X10*3/uL (160-400)
[2024-04-03] MEDS: fentaNYL citrate/NS 1,000 MCG/100 ML PLAST..BAG 15 MCG IVCONT ×2 (05:58→12:17)
--- NOTE | 2024-04-03 05:59 | HE.PHANOTE ---
RE VANCOMYCIN DOSING ONLY SLIGHT IMPROVEMENT OF RENAL FUNCTION TODAY TO SCR 3.51 (FROM 3.55 YESTERDAY). AFTER 1X DOSE OF 1750 MG 24 HOURS AGO, LEVEL IS ONLY 4.0. WILL GIVE 1000 MG THIS MORNING AND RECHECK LEVEL IN 12 HOURS TO DETERMINE IF FURTHER DOSES ARE NEEDED TODAY OR IF WITHIN RANGE TONIGHT.
[2024-04-03] MEDS: Piperacillin Sodium/Tazobactam 2.25 GM in 0.9 % Sodium Chloride 50 ML IV ×3 (06:11→22:50)
--- NOTE | 2024-04-03 06:37 | PC.NURSE ---
Patient began with increased core temp at 0130 with increased heart rate and vent asynchrony. Respiratory and PA were called to bedside. Fentanyl drip was started at 0210, with a 100mcg bolus drawn from bag administered by PA. Heart rate in the 150's with cardizem 10mg IVP administered at 0253, levophed increased at this time to offset drop in blood pressure. Core temp maxed at 103.7 patient was on cooling blanket and additional ice packs applied, also 975mg acetaminophen administered. Fentanyl gtt increased to 150mcg/hour and an additional 100mcg bolus was administered from the bag by the PA prior to administering a paralytic.
[2024-04-03] MEDS: vancomycin HCL 1,000 MG in 0.9 % Sodium Chloride 250 ML 270 MG IV (06:48)
[2024-04-03] MEDS: Albumin Human 25 % 100 ML IV ×2 (08:45→09:57)
[2024-04-03] MEDS: Sodium Bicarbonate 8.4% 50 MEQ/50 ML SYRINGE 100 MEQ IVPUSH (08:46)
[2024-04-03] MEDS: 0.9 % Sodium Chloride Flush 3 ML SYRINGE IVFLUSH ×3 (08:46→22:52)
--- NOTE | 2024-04-03 08:59 | P.PNCC_ITS ---
Subjective Subjective Date of Service: 04/03/24 Interval History: Continues to be on ventilator support, FiO2 decreased to 60% when compared to 100% yesterday Episodes of ventilator dyssynchrony needing paralytics On Levophed for vasopressor support Critical Care Time (minutes): 40 Physical Exam 2 Vital Signs: Vital Signs: Last Vital Signs Temp 95.4 F L 04/03/24 08:52 Pulse 74 04/03/24 08:52 Resp 14 04/03/24 08:52 BP 108/63 04/03/24 08:52 Pulse Ox 95 04/03/24 08:52 O2 Del Method Mechanical Ventil ation 04/03/24 08:52 O2 Flow Rate 15 04/02/24 06:11 FiO2 65 04/03/24 08:52 BMI result Body Mass Index 26.6 General: Patient in acute distress, ill appearing and tired appearing Nutritional Appearance: well nourished and overweight Eyes: appearance normal, both eyes and all related structures; Alignment and Position: alignment normal and position normal Neck: No lymphadenopathy, no thyromegaly Resp: bilateral air entry equal, crackles heard in bilateral lung more on the right Cardio: Regular rate, regular rhythm; Heart sounds: S1 normal heart sound present and S2 normal heart sound present GI: soft, nontender, no guarding, no hepatosplenomegaly : bladder normal to inspection, bladder normal to palpation, no renal angle tenderness Skin: no rashes or lesions noted and elasticity normal Neuro: Sedated, no focal deficits Objective Data Labs 04/03/24 05:05 04/03/24 05:05 Labs: Laboratory Results - last 24 hr 04/02/24 04/02/24 04/02/24 11:06 11:22 11:30 WBC RBC Hgb Hct MCV MCH MCHC RDW Plt Count MPV Immature Gran % (Auto) Neut % (Auto) Lymph % (Auto) [place] % (Auto) Eos % (Auto) Baso % (Auto) Lymph # (Auto) [place] # (Auto) Eos # (Auto) Baso # (Auto) Abs Immat Gran (auto) Absolute Neuts (auto) Absolute Nucleated RBC Nucleated RBC % (auto) Neutrophils % (Manual) Band Neutrophils % Lymphocytes % (Manual) Monocytes % (Manual) Eosinophils % (Manual) Abs Neuts (Manual) Lymphocytes # (Manual) Monocytes # (Manual) Eosinophils # (Manual) Smudge Cells Toxic Vacuolation Dohle Bodies Platelet Estimate Large Platelets Plt Morphology Comment RBC Morphology Tear Drop Cells Surendra Cells Acanthocytes (Spur) Schistocytes O2 Saturation 97.0 ABG pH at Pt Temp 7.38 ABG pCO2 at Pt Temp 30 L ABG pO2 at Pt Temp 76 L ABG HCO3 18 L ABG Base Excess (Actual) -5.4 VBG pH VBG pCO2 VBG pO2 VBG HCO3 VBG O2 Saturation VBG Base Excess Sodium Potassium Chloride Carbon Dioxide Anion Gap BUN Creatinine Estim Creat Clear Calc Estimated GFR POC Glucose 110 Random Glucose Calcium Phosphorus Magnesium Total Bilirubin AST ALT Alkaline Phosphatase Total Protein Albumin Nasal Screen MRSA (PCR) NEGATIVE Nasal S. aureus Screen NEGATIVE Nasal MRSA/S.aureus Interp SEE NOTE Random Vancomycin 04/02/24 04/02/24 04/02/24 18:15 19:47 19:50 WBC 23.8 H RBC 3.75 L Hgb 11.6 L Hct 32.8 L MCV 87.5 MCH 30.9 MCHC 35.4 RDW 14.7 Plt Count 139 L MPV 11.1 Immature Gran % (Auto) Cancelled Neut % (Auto) Cancelled Lymph % (Auto) Cancelled [place] % (Auto) Cancelled Eos % (Auto) Cancelled Baso % (Auto) Cancelled Lymph # (Auto) Cancelled [place] # (Auto) Cancelled Eos # (Auto) Cancelled Baso # (Auto) Cancelled Abs Immat Gran (auto) Cancelled Absolute Neuts (auto) Cancelled Absolute Nucleated RBC 0.000 Nucleated RBC % (auto) 0.0 Neutrophils % (Manual) 89 H Band Neutrophils % 5 Lymphocytes % (Manual) 5 L Monocytes % (Manual) 1 L Eosinophils % (Manual) Abs Neuts (Manual) 22.4 H Lymphocytes # (Manual) 1.2 Monocytes # (Manual) 0.2 Eosinophils # (Manual) Smudge Cells Toxic Vacuolation PRESENT Dohle Bodies PRESENT Platelet Estimate NORMAL Large Platelets Plt Morphology Comment NORMAL RBC Morphology NOTED Tear Drop Cells 2+ (3-5) Surendra Cells 3+ (>5) Acanthocytes (Spur) Schistocytes 1+ (0-2) O2 Saturation ABG pH at Pt Temp ABG pCO2 at Pt Temp ABG pO2 at Pt Temp ABG HCO3 ABG Base Excess (Actual) VBG pH 7.34 VBG pCO2 27 VBG pO2 81 VBG HCO3 15 L VBG O2 Saturation 97.0 VBG Base Excess -8.9 Sodium 136 Potassium 3.4 Chloride 105 Carbon Dioxide 15 L Anion Gap 19 BUN 60 H Creatinine 3.55 H Estim Creat Clear Calc 18.9 Estimated GFR 17 POC Glucose 197 H Random Glucose 245 H Calcium 8.4 Phosphorus 3.8 Magnesium 2.1 Total Bilirubin 1.2 H AST 123 H ALT 70 H Alkaline Phosphatase 173 H Total Protein 5.5 L Albumin 3.3 L Nasal Screen MRSA (PCR) Nasal S. aureus Screen Nasal MRSA/S.aureus Interp Random Vancomycin 04/03/24 04/03/24 04/03/24 00:11 04:59 05:05 WBC 18.1 H RBC 3.82 L Hgb 11.9 L Hct 33.2 L MCV 86.9 MCH 31.2 MCHC 35.8 RDW 14.6 Plt Count 112 L MPV 11.6 Immature Gran % (Auto) Cancelled Neut % (Auto) Cancelled Lymph % (Auto) Cancelled [place] % (Auto) Cancelled Eos % (Auto) Cancelled Baso % (Auto) Cancelled Lymph # (Auto) Cancelled [place] # (Auto) Cancelled Eos # (Auto) Cancelled Baso # (Auto) Cancelled Abs Immat Gran (auto) Cancelled Absolute Neuts (auto) Cancelled Absolute Nucleated RBC 0.000 Nucleated RBC % (auto) 0.0 Neutrophils % (Manual) 75 H Band Neutrophils % 17 H Lymphocytes % (Manual) 3 L Monocytes % (Manual) 4 Eosinophils % (Manual) 1 Abs Neuts (Manual) 16.7 H Lymphocytes # (Manual) 0.5 L Monocytes # (Manual) 0.7 Eosinophils # (Manual) 0.2 Smudge Cells PRESENT Toxic Vacuolation PRESENT Dohle Bodies PRESENT Platelet Estimate SLIGHTLY DECREASED Large Platelets PRESENT Plt Morphology Comment NOTED RBC Morphology NOTED Tear Drop Cells 1+ (0-2) [place] Cells 2+ (3-5) Acanthocytes (Spur) 1+ (0-2) Schistocytes O2 Saturation ABG pH at Pt Temp ABG pCO2 at Pt Temp ABG pO2 at Pt Temp ABG HCO3 ABG Base Excess (Actual) VBG pH 7.31 L VBG pCO2 37 VBG pO2 41 VBG HCO3 19 L VBG O2 Saturation 72.0 VBG Base Excess -6.3 Sodium 138 Potassium 4.0 Chloride 105 Carbon Dioxide 19 L Anion Gap 18 BUN 60 H Creatinine 3.51 H Estim Creat Clear Calc 19.1 Estimated GFR 18 POC Glucose 149 H Random Glucose 136 H Calcium 8.4 Phosphorus 4.2 Magnesium 2.1 Total Bilirubin 1.7 H AST 137 H ALT 81 H Alkaline Phosphatase 234 H Total Protein 6.1 L Albumin 3.3 L Nasal Screen MRSA (PCR) Nasal S. aureus Screen Nasal MRSA/S.aureus Interp Random Vancomycin 4.0 L Microbiology Microbiology Results: Microbiology 04/01/24 Unknown Urine Catheterized - Estevez Catheter Urine Culture - Final Escherichia coli 04/01/24 00:50 Blood - Venous Blood Culture - Preliminary Prelim: GNR Gram Stain only 04/01/24 00:49 Blood - Venous Blood Culture - Preliminary Gram negative david Prelim: GPC Gram Stain only 04/02/24 08:08 Aspirate - Induced Gram Stain - Final Progress Note: A&P Assessment and plan (1) Urinary retention with incomplete bladder emptying: Status: Acute (2) Septic shock: Status: Acute (3) Acute renal failure: Status: Acute (4) Acute sepsis: Status: Acute (5) Acute UTI: Status: Acute (6) Eczema of both external ears: Status: Acute Plan 63-year-old gentleman with past medical history of hypertension, hypothyroidism presented to the ED anuria and diarrhea, admitted to medical ICU for the management of septic shock eventually intubated needing ventilator support for severe hypoxia on 04/02/2024. Acute encephalopathy: Secondary to metabolic encephalopathy from severe sepsis Propofol for sedation, on fentanyl drip for analgesia; as needed rocuronium pushes for paralysis ICU delirium precautions Septic shock: Patient was on Levophed this morning, titrate for a Goal map above 65 mm Hg SVT: treated with cardizem pushes as needed sinus rhythm Acute hypoxemic respiratory failure: Secondary to severe ARDS from bilateral pneumonia right more than left Currently intubated and on ventilator support FiO2 down to 65%, peep 8, tidal volume 380, rate 20 not a candidate for weaning trials given high ventilator settings GI: continue tube feeds with Nepro Acute pyelonephritis: CT abdomen showing bilateral perinephric fat stranding, UA dirty WBC count trending down when compared to yesterday Blood cultures and urine cultures are positive for E.Coli and also Gram- positive cocci which might be a contaminant Antibiotics escalated to vanc and Zosyn given his decompensation MRSA negative will discontinue vanc Left sided hydronephrosis: bladder decompressed with Estevez, had urinary retention upon admission Urology seen the patient and advised to leave the Estevez in for 3 weeks Acute kidney injury: Secondary to ATN from severe sepsis and septic shock creatinine stable, good urine output No acute indication for renal replacement therapy CT abdomen not show any evidence of obstruction Closely monitor I's and O's, avoid nephrotoxic medications Lines: Peripheral Estevez Prophylaxis: Heparin, SCDs Patient has multiple organ failures including acute encephalopathy, acute hypoxemic respiratory failure, acute renal failure, septic shock. Total critical care time spent is about 40 minutes on managing episodes acute decompensation of respiratory status associated with vent dyssynchrony, ventilator management, sedation management, close hemodynamic monitoring,managing episodes of SVT, vasopressor management at this time is excluding any procedural time. Quality Stroke Does the patient have a stroke diagnosis?: No VTE Prior VTE?: No VTE Risk Level:: Medical - moderate - high VTE Device Contraindication: N/A - Device Ordered VTE Drug Contraindication: Treatment Not Indicated
[2024-04-03] MEDS: Norepinephrine Bitartrate/D5W 8 MG/250 ML PLAST..BAG 30.86 MG IVCONT (09:41)
--- NOTE | 2024-04-03 10:11 | MHC.CLN ---
F/U PATIENT IS INTUBATED AND SEDATED. DISCUSSED AT MD ROUNDS. RECOMMEND CONTINUE NEPRO TUBE FEEDING AT MAX GOAL RATE 35 ML PER HOUR, FREE WATER FLUSHES 240 ML Q 6 HOURS. FORMULA/FLUSH PROVIDES 1512 KCALS (TOTAL 1868 KCALS WITH SEDATION), 25 KCALS/KG; 68 G PROTEIN (.91 G/KG); FREE WATER FROM FORMULA 611 ML PLUS 960 ML [id number] ML (21 ML/KG). FOLLOW FOR TUBE FEED TOLERANCE, LABS.
[2024-04-03] MEDS: Acetaminophen 325 MG TABLET 650 MG PO ×2 (10:52→15:15)
--- NOTE | 2024-04-03 11:11 | P.PNNP_ITS ---
Subjective Subjective Date of Service: 04/03/24 Interval history: Continues to be on ventilator support, FiO2 decreased to 60% when compared to 100% yesterday Episodes of ventilator dyssynchrony needing paralytics On Levophed for vasopressor support Physical Exam 2 Vital Signs: Vital Signs: Last Vital Signs Temp 96.2 F L 04/03/24 10:53 Pulse 75 04/03/24 10:53 Resp 14 04/03/24 10:53 BP 120/67 04/03/24 10:53 Pulse Ox 95 04/03/24 10:53 O2 Del Method Mechanical Ventil ation 04/03/24 10:53 O2 Flow Rate 15 04/02/24 06:11 FiO2 65 04/03/24 10:53 BMI result Body Mass Index 26.6 Objective Data Labs 04/10/24 05:53 04/10/24 05:53 Labs: Laboratory Results - last 24 hr 04/02/24 04/02/24 04/02/24 11:06 11:22 11:30 WBC RBC Hgb Hct MCV MCH MCHC RDW Plt Count MPV Immature Gran % (Auto) Neut % (Auto) Lymph % (Auto) [place] % (Auto) Eos % (Auto) Baso % (Auto) Lymph # (Auto) [place] # (Auto) Eos # (Auto) Baso # (Auto) Abs Immat Gran (auto) Absolute Neuts (auto) Absolute Nucleated RBC Nucleated RBC % (auto) Neutrophils % (Manual) Band Neutrophils % Lymphocytes % (Manual) Monocytes % (Manual) Eosinophils % (Manual) Abs Neuts (Manual) Lymphocytes # (Manual) Monocytes # (Manual) Eosinophils # (Manual) Smudge Cells Toxic Vacuolation Dohle Bodies Platelet Estimate Large Platelets Plt Morphology Comment RBC Morphology Tear Drop Cells Surendra Cells Acanthocytes (Spur) Schistocytes O2 Saturation 97.0 ABG pH at Pt Temp 7.38 ABG pCO2 at Pt Temp 30 L ABG pO2 at Pt Temp 76 L ABG HCO3 18 L ABG Base Excess (Actual) -5.4 VBG pH VBG pCO2 VBG pO2 VBG HCO3 VBG O2 Saturation VBG Base Excess Sodium Potassium Chloride Carbon Dioxide Anion Gap BUN Creatinine Estim Creat Clear Calc Estimated GFR POC Glucose 110 Random Glucose Calcium Phosphorus Magnesium Total Bilirubin AST ALT Alkaline Phosphatase Total Protein Albumin Nasal Screen MRSA (PCR) NEGATIVE Nasal S. aureus Screen NEGATIVE Nasal MRSA/S.aureus Interp SEE NOTE Random Vancomycin 04/02/24 04/02/24 04/02/24 18:15 19:47 19:50 WBC 23.8 H RBC 3.75 L Hgb 11.6 L Hct 32.8 L MCV 87.5 MCH 30.9 MCHC 35.4 RDW 14.7 Plt Count 139 L MPV 11.1 Immature Gran % (Auto) Cancelled Neut % (Auto) Cancelled Lymph % (Auto) Cancelled [place] % (Auto) Cancelled Eos % (Auto) Cancelled Baso % (Auto) Cancelled Lymph # (Auto) Cancelled [place] # (Auto) Cancelled Eos # (Auto) Cancelled Baso # (Auto) Cancelled Abs Immat Gran (auto) Cancelled Absolute Neuts (auto) Cancelled Absolute Nucleated RBC 0.000 Nucleated RBC % (auto) 0.0 Neutrophils % (Manual) 89 H Band Neutrophils % 5 Lymphocytes % (Manual) 5 L Monocytes % (Manual) 1 L Eosinophils % (Manual) Abs Neuts (Manual) 22.4 H Lymphocytes # (Manual) 1.2 Monocytes # (Manual) 0.2 Eosinophils # (Manual) Smudge Cells Toxic Vacuolation PRESENT Dohle Bodies PRESENT Platelet Estimate NORMAL Large Platelets Plt Morphology Comment NORMAL RBC Morphology NOTED Tear Drop Cells 2+ (3-5) Surendra Cells 3+ (>5) Acanthocytes (Spur) Schistocytes 1+ (0-2) O2 Saturation ABG pH at Pt Temp ABG pCO2 at Pt Temp ABG pO2 at Pt Temp ABG HCO3 ABG Base Excess (Actual) VBG pH 7.34 VBG pCO2 27 VBG pO2 81 VBG HCO3 15 L VBG O2 Saturation 97.0 VBG Base Excess -8.9 Sodium 136 Potassium 3.4 Chloride 105 Carbon Dioxide 15 L Anion Gap 19 BUN 60 H Creatinine 3.55 H Estim Creat Clear Calc 18.9 Estimated GFR 17 POC Glucose 197 H Random Glucose 245 H Calcium 8.4 Phosphorus 3.8 Magnesium 2.1 Total Bilirubin 1.2 H AST 123 H ALT 70 H Alkaline Phosphatase 173 H Total Protein 5.5 L Albumin 3.3 L Nasal Screen MRSA (PCR) Nasal S. aureus Screen Nasal MRSA/S.aureus Interp Random Vancomycin 04/03/24 04/03/24 04/03/24 00:11 04:59 05:05 WBC 18.1 H RBC 3.82 L Hgb 11.9 L Hct 33.2 L MCV 86.9 MCH 31.2 MCHC 35.8 RDW 14.6 Plt Count 112 L MPV 11.6 Immature Gran % (Auto) Cancelled Neut % (Auto) Cancelled Lymph % (Auto) Cancelled [place] % (Auto) Cancelled Eos % (Auto) Cancelled Baso % (Auto) Cancelled Lymph # (Auto) Cancelled [place] # (Auto) Cancelled Eos # (Auto) Cancelled Baso # (Auto) Cancelled Abs Immat Gran (auto) Cancelled Absolute Neuts (auto) Cancelled Absolute Nucleated RBC 0.000 Nucleated RBC % (auto) 0.0 Neutrophils % (Manual) 75 H Band Neutrophils % 17 H Lymphocytes % (Manual) 3 L Monocytes % (Manual) 4 Eosinophils % (Manual) 1 Abs Neuts (Manual) 16.7 H Lymphocytes # (Manual) 0.5 L Monocytes # (Manual) 0.7 Eosinophils # (Manual) 0.2 Smudge Cells PRESENT Toxic Vacuolation PRESENT Dohle Bodies PRESENT Platelet Estimate SLIGHTLY DECREASED Large Platelets PRESENT Plt Morphology Comment NOTED RBC Morphology NOTED Tear Drop Cells 1+ (0-2) Surendra Cells 2+ (3-5) Acanthocytes (Spur) 1+ (0-2) Schistocytes O2 Saturation ABG pH at Pt Temp ABG pCO2 at Pt Temp ABG pO2 at Pt Temp ABG HCO3 ABG Base Excess (Actual) VBG pH 7.31 L VBG pCO2 37 VBG pO2 41 VBG HCO3 19 L VBG O2 Saturation 72.0 VBG Base Excess -6.3 Sodium 138 Potassium 4.0 Chloride 105 Carbon Dioxide 19 L Anion Gap 18 BUN 60 H Creatinine 3.51 H Estim Creat Clear Calc 19.1 Estimated GFR 18 POC Glucose 149 H Random Glucose 136 H Calcium 8.4 Phosphorus 4.2 Magnesium 2.1 Total Bilirubin 1.7 H AST 137 H ALT 81 H Alkaline Phosphatase 234 H Total Protein 6.1 L Albumin 3.3 L Nasal Screen MRSA (PCR) Nasal S. aureus Screen Nasal MRSA/S.aureus Interp Random Vancomycin 4.0 L Microbiology Microbiology Results: Microbiology 04/02/24 08:08 Aspirate - Induced Gram Stain - Final 04/02/24 08:08 Aspirate - Induced Sputum Culture - Preliminary Culture in progress. 08/28/24 Unknown Urine Catheterized - Estevez Catheter Urine Culture - Final Escherichia coli 04/01/24 00:50 Blood - Venous Blood Culture - Preliminary Prelim: GNR Gram Stain only 04/01/24 00:49 Blood - Venous Blood Culture - Preliminary Gram negative david Prelim: GPC Gram Stain only Procedures Date of Service Date of Service: 04/29/24 Assessment & Plan Assessment and plan (1) Acute renal failure: Status: Resolved Plan EBEN due to tubular injury in a setting of sepsis shock. UO good; Serum creatinine improving C/W current supportive management for now Time Spent With Patient Time: Total time managing care of this patient today ____ minutes. Progress Note: Quality Stroke Does the patient have a stroke diagnosis?: No
--- NOTE | 2024-04-03 11:35 | MHC.CM.PN ---
Pt continues care in ICU: plan for today includes vent weaning and BP support. Pt on IV ATB for sepsis. Unknown HCP status: Broad referrals made for STR as pt resides alone and may require more supports than his VNA services. CM to follow.
[2024-04-03 11:43] LABS: Glucose, Whole Blood 161 mg/dL (60-115)
[2024-04-03] MEDS: dexmedeTOMIDidine HCL/NS 400 MCG/100 ML INFUS..BTL 18.7 MCG IVCONT ×2 (17:59→21:55)
[2024-04-03 18:36] LABS: Glucose, Whole Blood 139 mg/dL (60-115)
[2024-04-03] MEDS: Norepinephrine Bitartrate/D5W 8 MG/250 ML PLAST..BAG 25.25 MG IVCONT (19:02)
[2024-04-03] MEDS: fentaNYL citrate/NS 1,000 MCG/100 ML PLAST..BAG 12.5 MCG IVCONT (19:19)
[2024-04-03] MEDS: Chlorhexidine Gluc Oral Rinse 15 ML MOUTHWASH BUCCAL (20:30)
[2024-04-04] VITALS (37 sets, daily range): BP systolic 106–140; BP diastolic 62–77; PULSE 55–148; RESP 13–33; TEMP 34.9–39.1; O2SAT 90–97; BMI 31.6
[2024-04-04 00:11] LABS: Glucose, Whole Blood 186 mg/dL (60-115)
[2024-04-04] MEDS: dexmedeTOMIDidine HCL/NS 400 MCG/100 ML INFUS..BTL 18.7 MCG IVCONT ×2 (02:50→08:02)
[2024-04-04] MEDS: propofoL 1,000 MG/100 ML VIAL 22.44 MG IVCONT ×2 (03:08→06:38)
[2024-04-04] MEDS: Heparin Sodium,Porcine 5,000 UNIT/ML VIAL 5000 UNIT SUBCUT ×3 (05:07→20:55)
[2024-04-04] MEDS: Pantoprazole Sodium 40 MG/10 ML VIAL IVPUSH (05:07)
[2024-04-04 05:21] LABS: VBG Base Excess 0.3 mmol/L; VBG HCO3 25 mmol/L (22-26); VBG pCO2 39 mmHg; VBG pO2 37 mmHg
[2024-04-04 05:24] LABS: Venous Blood Gas Refer to POC result
[2024-04-04 05:37] LABS: Alanine Aminotransferase 58 U/L (0-40); Albumin Level 3.3 g/dL (3.5-5.0); Alkaline Phosphatase 173 U/L (39-117); Anion Gap 16 (12-20); Aspartate Amino Transferase 87 U/L (5-37); Bilirubin Total 2.9 mg/dL (0.0-1.0); Blood Urea Nitrogen 47 mg/dL (9-16); Calcium 8.8 mg/dL (8.4-10.2); Carbon Dioxide 23 mmol/L (22-29); Chloride 106 mmol/L (96-108); Estimated Glomerular Filt Rate 24; Glucose Random 168 mg/dL (60-115); Magnesium 2.1 mg/dL (1.6-2.6); Phosphorus 2.5 mg/dL (2.7-4.5); Potassium 3.3 mmol/L (3.3-5.1); Sodium 142 mmol/L (135-145)
[2024-04-04 06:04] LABS: Basophils Absolute Auto 0.1 X10*3/uL (0.0-0.2); Basophils Percent Auto 0.4 % (0-2); Eosinophils Absolute Auto 0.3 X10*3/uL (0.0-0.4); Eosinophils Percent Auto 2.2 % (0-4); Hemoglobin 11.5 g/dl (14.0-18.0); Imm Gran Abs Auto 0.58 X10*3/uL (0.00-0.03); Imm Gran Pct Auto 4.3 % (0.0-0.4); Lymphocytes Absolute Auto 0.6 X10*3/uL (1.2-4.9); Lymphocytes Percent Auto 4.2 % (20-40); Mean Corpuscular HGB Conc 35.9 g/dl (31.0-36.0); Mean Corpuscular Hemoglobin 31.2 pg (27.0-33.0); Mean Corpuscular Volume 86.7 fL (80.0-98.0); Mean Platelet Volume 11.9 fL (9.4-12.4); Monocytes Absolute Auto 0.8 X10*3/uL (0.1-1.2); Monocytes Percent Auto 6.1 % (2-11); NRBC Pct Auto 0.1 /100WBC (0.0-0.2); Neutrophils Absolute Auto 11.2 x10*3/uL (2.0-8.3); Neutrophils Percent Auto 82.8 % (45-73); Platelet Count 105 X10*3/uL (160-400); Red Blood Count 3.69 X10*6/uL (4.60-5.80); Red Cell Distribution Width 14.7 % (11.0-16.0); White Blood Count 13.5 X10*3/uL (4.8-10.8)
[2024-04-04 06:05] LABS: MANUAL DIFF FLAG NO
[2024-04-04] MEDS: Piperacillin Sodium/Tazobactam 2.25 GM in 0.9 % Sodium Chloride 50 ML IV (06:06)
[2024-04-04] MEDS: Sodium,Potassium Phosphates POWD.PACK 2 PACKET PO (06:07)
[2024-04-04] MEDS: 0.9 % Sodium Chloride Flush 3 ML SYRINGE IVFLUSH ×2 (07:29→15:29)
[2024-04-04] MEDS: Chlorhexidine Gluc Oral Rinse 15 ML MOUTHWASH BUCCAL (07:29)
[2024-04-04] MEDS: Acetaminophen 325 MG TABLET 650 MG PO (09:32)
[2024-04-04] MEDS: Tamsulosin HCL 0.4 MG CAPSULE PO (09:32)
--- NOTE | 2024-04-04 11:13 | P.PNCC_ITS ---
Subjective Subjective Date of Service: 04/04/24 Interval History: Remains on ventilator support this morning, FiO2 down to 50%, peep down to 6 On propofol for sedation, fentanyl for analgesia and Precedex for anxiolysis On Levophed drip for vasopressor support, however the doses of vasopressor is decreasing Critical Care Time (minutes): 42 Physical Exam 2 Vital Signs: Vital Signs: Last Vital Signs Temp 99.3 F 04/04/24 10:52 Pulse 70 04/04/24 10:59 Resp 18 04/04/24 10:52 BP 131/71 04/04/24 10:59 Pulse Ox 93 04/04/24 10:52 O2 Del Method Mechanical Ventil ation 04/04/24 10:52 O2 Flow Rate 15 04/02/24 06:11 FiO2 50 04/04/24 10:52 BMI result Body Mass Index 31.6 General: acute distress, ill appearing Nutritional Appearance: well nourished and normal weight Eyes: appearance normal, both eyes and all related structures; Alignment and Position: alignment normal and position normal Neck: No lymphadenopathy, no thyromegaly Resp: bilateral air entry equal, bilateral crackles heard, occasional wheeze heard Cardio: Regular rate, regular rhythm; Heart sounds: S1 normal heart sound present and S2 normal heart sound present GI: soft, nontender, no guarding, no hepatosplenomegaly : bladder normal to inspection, bladder normal to palpation, no renal angle tenderness Skin: no rashes or lesions noted and elasticity normal Neuro: Sedated, no focal deficits Objective Data Labs 04/04/24 05:58 04/04/24 05:17 Labs: Laboratory Results - last 24 hr 04/03/24 04/03/24 04/04/24 11:38 18:32 00:07 WBC RBC Hgb Hct MCV MCH MCHC RDW Plt Count MPV Immature Gran % (Auto) Neut % (Auto) Lymph % (Auto) [place] % (Auto) Eos % (Auto) Baso % (Auto) Lymph # (Auto) [place] # (Auto) Eos # (Auto) Baso # (Auto) Abs Immat Gran (auto) Absolute Neuts (auto) Absolute Nucleated RBC Nucleated RBC % (auto) VBG pH VBG pCO2 VBG pO2 VBG HCO3 VBG O2 Saturation VBG Base Excess Sodium Potassium Chloride Carbon Dioxide Anion Gap BUN Creatinine Estim Creat Clear Calc Estimated GFR POC Glucose 161 H 139 H 186 H Random Glucose Calcium Phosphorus Magnesium Total Bilirubin AST ALT Alkaline Phosphatase Total Protein Albumin 04/04/24 04/04/24 04/04/24 05:12 05:17 05:58 WBC 13.5 H RBC 3.69 L Hgb 11.5 L Hct 32.0 L MCV 86.7 MCH 31.2 MCHC 35.9 RDW 14.7 Plt Count 105 L MPV 11.9 Immature Gran % (Auto) 4.3 H Neut % (Auto) 82.8 H Lymph % (Auto) 4.2 L [place] % (Auto) 6.1 Eos % (Auto) 2.2 Baso % (Auto) 0.4 Lymph # (Auto) 0.6 L [place] # (Auto) 0.8 Eos # (Auto) 0.3 Baso # (Auto) 0.1 Abs Immat Gran (auto) 0.58 H Absolute Neuts (auto) 11.2 H Absolute Nucleated RBC 0.020 H Nucleated RBC % (auto) 0.1 VBG pH 7.40 VBG pCO2 39 VBG pO2 37 VBG HCO3 25 VBG O2 Saturation 67.0 VBG Base Excess 0.3 Sodium 142 Potassium 3.3 Chloride 106 Carbon Dioxide 23 Anion Gap 16 BUN 47 H Creatinine 2.69 H Estim Creat Clear Calc 25.0 Estimated GFR 24 POC Glucose Random Glucose 168 H Calcium 8.8 Phosphorus 2.5 L Magnesium 2.1 Total Bilirubin 2.9 H AST 87 H ALT 58 H Alkaline Phosphatase 173 H Total Protein 6.0 L Albumin 3.3 L Microbiology Microbiology Results: Microbiology 04/02/24 08:08 Aspirate - Induced Gram Stain - Final 04/02/24 08:08 Aspirate - Induced Sputum Culture - Final 04/02/24 11:00 Blood - Venous Blood Culture - Preliminary No growth after 24 hours. 04/01/24 00:50 Blood - Venous Blood Culture - Final Escherichia coli 04/01/24 00:49 Blood - Venous Blood Culture - Final Escherichia coli Coag negative Staphylococcus 04/02/24 10:14 Blood - Venous Blood Culture - Preliminary No growth after 24 hours. 04/01/24 Unknown Urine Catheterized - Estevez Catheter Urine Culture - Final Escherichia coli Progress Note: A&P Assessment and plan (1) Urinary retention with incomplete bladder emptying: Status: Acute (2) Septic shock: Status: Acute (3) Acute renal failure: Status: Acute (4) Acute sepsis: Status: Acute (5) Acute UTI: Status: Acute Plan 63-year-old gentleman with past medical history of hypertension, hypothyroidism presented to the ED anuria and diarrhea, admitted to medical ICU for the management of septic shock eventually intubated needing ventilator support for severe hypoxia on 04/02/2024. Acute encephalopathy: Secondary to metabolic encephalopathy from severe sepsis Patient was alert and oriented x3 prior to intubation Propofol for sedation, on fentanyl drip for analgesia; on Precedex drip for anxiolysis We will taper off fentanyl followed by turning off propofol to wean the patient from ventilator ICU delirium precautions Septic shock: On Levophed for vasopressor support, doses decreasing currently on 0.08 mcg per kg per minute, titrate for a Goal map above 65 mm Hg SVT: treated with cardizem pushes as needed Currently in sinus rhythm Acute hypoxemic respiratory failure: Secondary to severe ARDS from bilateral pneumonia right more than left Currently intubated and on ventilator support FiO2 down to 50%, peep down to 6, tidal volume 380, rate 20 Place the patient on pressor support trials this morning, pulling good volumes with good minute ventilation and RSBI. Patient is titrated off the fentanyl and propofol drip if his mentation improves we will wean him off ventilator. GI: continue tube feeds with Nepro Acute pyelonephritis: CT abdomen showing bilateral perinephric fat stranding, UA dirty WBC count trending down when compared to yesterday Blood cultures and urine cultures are positive for E.Coli and coagulase- negative Staph might be a contaminant We will deescalate antibiotics from Zosyn dose ceftriaxone MRSA negative will discontinue vanc Left sided hydronephrosis: bladder decompressed with Estevez, had urinary retention upon admission Urology seen the patient and advised to leave the Estevez in for 3 weeks Acute kidney injury: Secondary to ATN from severe sepsis and septic shock Creatinine Trending down, good urine output No acute indication for renal replacement therapy CT abdomen not show any evidence of obstruction Closely monitor I's and O's, avoid nephrotoxic medications Lines: Peripheral Estevez Prophylaxis: Heparin, SCDs Quality Stroke Does the patient have a stroke diagnosis?: No VTE Prior VTE?: No VTE Risk Level:: Medical - moderate - high VTE Device Contraindication: N/A - Device Ordered VTE Drug Contraindication: Treatment Not Indicated
[2024-04-04 11:37] LABS: Glucose, Whole Blood 113 mg/dL (60-115)
[2024-04-04] MEDS: HYDROmorphone HCl 0.5 MG/0.5 ML SYRINGE IVPUSH ×2 (11:48→15:41)
[2024-04-04] MEDS: cefTRIAXone sodium 2 GM in 0.9 % Sodium Chloride 50 ML IV (11:54)
--- NOTE | 2024-04-04 12:07 | HE.PHANOTE ---
Spoke with Dr. Julian about Meperidine for shivers. Discussed the risk neurotoxicity because of accumulation due to decreased renal function. Order changed to be one time dose instead of PRN so patient can be monitor. Medications is non formulary therefore will need to be enter by [facility] if more doses are needed. Provider aware. Jaclyn Millan, AbisaiD
--- NOTE | 2024-04-04 12:21 | PC.NURSE ---
Sedation fully weaned at 1049. At that time, pt started on PSV 12/6 at 50% fio2 with success. At 1110, PSV set to 10/6. At 1130, pt able to follow commands and answer yes/no questions. MD ordered extubation. Core Maker and RT at bedside. Oral suction provided, pt able to cough. Pt placed on HFNC set at 50L @ 100%. Pt tachypnic but o2 sat 96%. MD aware.
[2024-04-04] MEDS: Acetaminophen 1,000 MG/100 ML PIGGYBACK 400 MG IV (16:32)
[2024-04-04 18:18] LABS: Glucose, Whole Blood 65 mg/dL (60-115)
[2024-04-04 18:31] LABS: Glucose, Whole Blood 67 mg/dL (60-115)
[2024-04-04 19:01] LABS: Glucose, Whole Blood 85 mg/dL (60-115)
[2024-04-04 23:29] LABS: Glucose, Whole Blood 85 mg/dL (60-115)
[2024-04-05] VITALS (28 sets, daily range): BP systolic 116–165; BP diastolic 71–94; PULSE 105–149; RESP 17–29; TEMP 37–38.1; O2SAT 91–97; BMI 32.7
--- NOTE | 2024-04-05 | ECG_ITS ---
Test Reason : TACHYCARDIA Blood Pressure : / mmHG Vent. Rate : 116 BPM Atrial Rate : 116 BPM P-R Int : 122 ms QRS Dur : 084 ms QT Int : 354 ms P-R-T Axes : 059 052 042 degrees QTc Int : 492 ms Sinus tachycardia with Premature supraventricular complexes and with frequent Premature ventricular complexes Otherwise normal ECG When compared with ECG of 31-MAR-2024 23:53, Premature ventricular complexes are now Present Premature supraventricular complexes are now Present QRS duration has decreased Non-specific change in ST segment in Anterior leads Nonspecific T wave abnormality no longer evident in Anterior leads Referred By: Nasreen Rodgers Electronically Signed By:JOY GONZALEZ
[2024-04-05] MEDS: Acetaminophen 325 MG TABLET 650 MG PO (02:23)
[2024-04-05] MEDS: dilTIAZem HCL 50 MG/10 ML VIAL 10 MG IVPUSH ×2 (04:37→06:00)
[2024-04-05] MEDS: Heparin Sodium,Porcine 5,000 UNIT/ML VIAL 5000 UNIT SUBCUT ×3 (04:50→20:20)
--- NOTE | 2024-04-05 04:55 | PC.NURSE ---
Addendum entered by Deena Call RN 04/05/24 06:34: 0530 pt hr up to 160s continues to have chills temp 98.6 offers no complaints, PA made aware, advise to give PRN dilaudid for pain per pa pt has not received his gabapentin for leg pain. Hr retunr to 120s, diluadid given as ordered. Also new order for 10mg ivp cardizem, given as ordered PA to bedside stated high HR is d/t rigors. pt resting eyes closed in bed offers no complaints at this time Original Note: 0430 pts hr up to 150s sustaining, pt alert & oriented but drowsy, recived tylenol for fever 0245 pt continues to have chills temp 99.6 at this time cooling blanket on, PA made awre previous HR 120s, new order 10mg ivp cardizem, admin as ordered, pt resting eye closed in bed offers no complaints
[2024-04-05 05:08] LABS: VBG Base Excess 0.3 mmol/L; VBG HCO3 24 mmol/L (22-26); VBG pCO2 37 mmHg; VBG pH 7.41 (7.32-7.43); VBG pO2 23 mmHg
[2024-04-05 05:09] LABS: Venous Blood Gas Refer to POC result
[2024-04-05 05:13] LABS: Hematocrit 34.5 % (42.0-52.0); Hemoglobin 12.2 g/dl (14.0-18.0); Mean Corpuscular HGB Conc 35.4 g/dl (31.0-36.0); Mean Platelet Volume 11.2 fL (9.4-12.4); NRBC Pct Auto 0.2 /100WBC (0.0-0.2); Platelet Count 155 X10*3/uL (160-400); Red Blood Count 4.06 X10*6/uL (4.60-5.80); Red Cell Distribution Width 14.6 % (11.0-16.0)
[2024-04-05 05:26] LABS: Alanine Aminotransferase 68 U/L (0-40); Albumin Level 3.2 g/dL (3.5-5.0); Alkaline Phosphatase 193 U/L (39-117); Anion Gap 18 (12-20); Aspartate Amino Transferase 120 U/L (5-37); Bilirubin Total 4.2 mg/dL (0.0-1.0); Blood Urea Nitrogen 41 mg/dL (9-16); Carbon Dioxide 24 mmol/L (22-29); Chloride 103 mmol/L (96-108); Estimated Glomerular Filt Rate 28; Glucose Random 95 mg/dL (60-115); Magnesium 1.9 mg/dL (1.6-2.6); Phosphorus 2.5 mg/dL (2.7-4.5); Potassium 3.1 mmol/L (3.3-5.1); Sodium 142 mmol/L (135-145); Total Protein 5.8 g/dL (6.5-8.0)
[2024-04-05 05:34] LABS: Band Neutrophils Percent 13 % (3-5); Eosinophils Absolute Manual 0.2 X10*3/uL (0.0-0.4); Eosinophils Percent Manual 1 % (0-4); Lymphocytes Absolute Manual 0.9 X10*3/uL (1.2-4.9); Lymphocytes Percent Manual 6 % (20-40); Metamyelocytes Absolute 0.2 X10*3/uL; Metamyelocytes Percent 1 %; Monocytes Absolute Manual 0.8 X10*3/uL (0.1-1.2); Monocytes Percent Manual 5 % (2-11); Neutrophils Absolute Manual 13.1 X10*3/uL (2.0-8.3); Neutrophils Percent Manual 74 % (45-73); Nucleated Red Blood Cells 1 /100WBC (0-0)
[2024-04-05 05:36] LABS: Acanthocytes 2+ (3-5) /OIF; Platelet Estimate NORMAL (NORMAL); Platelet Morphology Comment NORMAL; Polychromasia 1+ (0-2) /OIF; RBC Morphology NOTED; Schistocytes 1+ (0-2) /OIF; Spherocytes 1+ (0-2) /OIF; Target Cells 1+ (5-14) /OIF
[2024-04-05 05:37] LABS: Dohle Bodies PRESENT; Toxic Vacuolation PRESENT
[2024-04-05] MEDS: HYDROmorphone HCl 0.5 MG/0.5 ML SYRINGE IVPUSH ×5 (05:37→23:54)
[2024-04-05] MEDS: Potassium Phosphate/NS 15 MMOL/250 ML PLAST..BAG 62.5 MMOL IV (06:22)
--- NOTE | 2024-04-05 07:52 | PM.CCPN ---
Subjective Subjective Date of Service: 04/05/24 Critical Care Time (minutes): 60 Physical Exam Vital Signs: Vital Signs: Last Vital Signs Temp 98.6 F 04/05/24 07:00 Pulse 113 H 04/05/24 07:00 Resp 23 H 04/05/24 07:27 BP 137/72 04/05/24 07:00 Pulse Ox 92 04/05/24 07:00 O2 Del Method High Flow Nasal C annula 04/05/24 07:00 O2 Flow Rate 40 04/05/24 07:00 FiO2 35 04/05/24 07:00 BMI result Body Mass Index 32.7 Const: Other: fatigued, though easily arousable w/ verbal stimulus General: cooperative, healthy appearing, comfortable, no acute distress and well developed Orientation/consciousness: oriented to person and oriented to place HEENT: Head: Yes normal to inspection, Yes normocephalic and Yes atraumatic Eyes: Alignment and Position: alignment abnormal and position abnormal Corneas: corneas abnormal Neck: Neck: Yes normal visual inspection, Yes full ROM, Yes trachea midline and Yes supple Chest: Chest palpation & inspection: normal inspection of the chest Resp: Other: no appreciable rales, rhonchi, wheezing Effort & Inspection: normal respiratory effort Cardio: Rate: tachycardic Rhythm: abnormal rhythm GI: Inspection: Yes normal to inspection, No Abdominal wall edema and No distended Palpation (GI): Soft to palpation, not firm, nontender, no guarding and not rigid Skin: General skin exam: no rashes or lesions noted Neuro: General: oriented to person, oriented to place, tone normal and moves all extremities Extrem: General: Yes normal to inspection, Yes full ROM, Yes capillary refill normal and Yes no clubbing, cyanosis or edema Psych: Appearance: grossly normal Objective Data Labs 04/05/24 05:02 04/05/24 05:02 Labs: Laboratory Results - last 24 hr 04/04/24 04/04/24 04/04/24 11:33 18:15 18:27 WBC RBC Hgb Hct MCV MCH MCHC RDW Plt Count MPV Immature Gran % (Auto) Neut % (Auto) Lymph % (Auto) [place] % (Auto) Eos % (Auto) Baso % (Auto) Lymph # (Auto) [place] # (Auto) Eos # (Auto) Baso # (Auto) Abs Immat Gran (auto) Absolute Neuts (auto) Absolute Nucleated RBC Nucleated RBC % (auto) Neutrophils % (Manual) Band Neutrophils % Lymphocytes % (Manual) Monocytes % (Manual) Eosinophils % (Manual) Metamyelocytes % Abs Neuts (Manual) Lymphocytes # (Manual) Monocytes # (Manual) Eosinophils # (Manual) Metamyelocytes # Nucleated RBCs Toxic Vacuolation Dohle Bodies Platelet Estimate Plt Morphology Comment RBC Morphology Polychromasia Spherocytes Target Cells Acanthocytes (Spur) Schistocytes VBG pH VBG pCO2 VBG pO2 VBG HCO3 VBG O2 Saturation VBG Base Excess Sodium Potassium Chloride Carbon Dioxide Anion Gap BUN Creatinine Estim Creat Clear Calc Estimated GFR POC Glucose 113 65 67 Random Glucose Calcium Phosphorus Magnesium Total Bilirubin AST ALT Alkaline Phosphatase Total Protein Albumin 04/04/24 04/04/24 04/05/24 18:57 23:25 04:58 WBC RBC Hgb Hct MCV MCH MCHC RDW Plt Count MPV Immature Gran % (Auto) Neut % (Auto) Lymph % (Auto) [place] % (Auto) Eos % (Auto) Baso % (Auto) Lymph # (Auto) [place] # (Auto) Eos # (Auto) Baso # (Auto) Abs Immat Gran (auto) Absolute Neuts (auto) Absolute Nucleated RBC Nucleated RBC % (auto) Neutrophils % (Manual) Band Neutrophils % Lymphocytes % (Manual) Monocytes % (Manual) Eosinophils % (Manual) Metamyelocytes % Abs Neuts (Manual) Lymphocytes # (Manual) Monocytes # (Manual) Eosinophils # (Manual) Metamyelocytes # Nucleated RBCs Toxic Vacuolation Dohle Bodies Platelet Estimate Plt Morphology Comment RBC Morphology Polychromasia Spherocytes Target Cells Acanthocytes (Spur) Schistocytes VBG pH 7.41 VBG pCO2 37 VBG pO2 23 VBG HCO3 24 VBG O2 Saturation 35.0 VBG Base Excess 0.3 Sodium Potassium Chloride Carbon Dioxide Anion Gap BUN Creatinine Estim Creat Clear Calc Estimated GFR POC Glucose 85 85 Random Glucose Calcium Phosphorus Magnesium Total Bilirubin AST ALT Alkaline Phosphatase Total Protein Albumin 04/05/24 05:02 WBC 15.0 H RBC 4.06 L Hgb 12.2 L Hct 34.5 L MCV 85.0 MCH 30.0 MCHC 35.4 RDW 14.6 Plt Count 155 L D MPV 11.2 Immature Gran % (Auto) Cancelled Neut % (Auto) Cancelled Lymph % (Auto) Cancelled [place] % (Auto) Cancelled Eos % (Auto) Cancelled Baso % (Auto) Cancelled Lymph # (Auto) Cancelled [place] # (Auto) Cancelled Eos # (Auto) Cancelled Baso # (Auto) Cancelled Abs Immat Gran (auto) Cancelled Absolute Neuts (auto) Cancelled Absolute Nucleated RBC 0.030 H Nucleated RBC % (auto) 0.2 Neutrophils % (Manual) 74 H Band Neutrophils % 13 H Lymphocytes % (Manual) 6 L Monocytes % (Manual) 5 Eosinophils % (Manual) 1 Metamyelocytes % 1 Abs Neuts (Manual) 13.1 H Lymphocytes # (Manual) 0.9 L Monocytes # (Manual) 0.8 Eosinophils # (Manual) 0.2 Metamyelocytes # 0.2 Nucleated RBCs 1 H Toxic Vacuolation PRESENT Dohle Bodies PRESENT Platelet Estimate NORMAL Plt Morphology Comment NORMAL RBC Morphology NOTED Polychromasia 1+ (0-2) Spherocytes 1+ (0-2) Target Cells 1+ (5-14) Acanthocytes (Spur) 2+ (3-5) Schistocytes 1+ (0-2) VBG pH VBG pCO2 VBG pO2 VBG HCO3 VBG O2 Saturation VBG Base Excess Sodium 142 Potassium 3.1 L Chloride 103 Carbon Dioxide 24 Anion Gap 18 BUN 41 H Creatinine 2.36 H Estim Creat Clear Calc 33.0 Estimated GFR 28 POC Glucose Random Glucose 95 Calcium 9.0 Phosphorus 2.5 L Magnesium 1.9 Total Bilirubin 4.2 H AST 120 H ALT 68 H Alkaline Phosphatase 193 H Total Protein 5.8 L Albumin 3.2 L Microbiology Microbiology Results: Microbiology 04/02/24 11:00 Blood - Venous Blood Culture - Preliminary No growth after 48 hours. 04/02/24 10:14 Blood - Venous Blood Culture - Preliminary No growth after 48 hours. 04/02/24 08:08 Aspirate - Induced Gram Stain - Final 04/02/24 08:08 Aspirate - Induced Sputum Culture - Final 04/01/24 00:50 Blood - Venous Blood Culture - Final Escherichia coli 04/01/24 00:49 Blood - Venous Blood Culture - Final Escherichia coli Coag negative Staphylococcus 04/01/24 Unknown Urine Catheterized - Estevez Catheter Urine Culture - Final Escherichia coli Progress Note: A&P Assessment and plan (1) Pyelonephritis due to Escherichia coli: Status: Acute (2) Septic shock: Status: Acute (3) Acute hypoxic respiratory failure: Status: Acute Plan Patient is a 63 Y M w/ hypertension, hypothyroidism, and blindness p/w diarrhea, found to have pyelonephritis d/t e. coli, c/b septic shock, multi-system organ failure, including respiratory failure, intubated 04/02, extubated 04/04 N: no acute issues CV: septic shock, resolved; tachycardia w/o hemodynamic compromise, to monitor closely; hypertension R: acute hypoxic respiratory failure, intubated 04/02, extubated 04/04; HFNC, wean as tolerated GI: NPO, awaiting speech/swallow; advance diet as tolerated : acute pyelonephritis d/t e. coli, c/b renal insufficiency H: thrombocytopenia, to monitor ID: acute pyelonephritis d/t e. coli; ceftriaxone E: hypothyroidism; to follow-up TSH/T4 P: no acute issues Quality Stroke Does the patient have a stroke diagnosis?: No VTE Prior VTE?: No VTE Risk Level:: Medical - moderate - high VTE Device Contraindication: N/A - Device Ordered VTE Drug Contraindication: N/A - Med Ordered
[2024-04-05] MEDS: Furosemide 20 MG/2 ML VIAL 10 MG IVPUSH (08:28)
[2024-04-05] MEDS: Albumin Human 25 % 50 ML 100 ML IV (08:30)
[2024-04-05] MEDS: 0.9 % Sodium Chloride Flush 3 ML SYRINGE IVFLUSH ×3 (08:54→23:55)
[2024-04-05 09:05] LABS: TSH reflex Free T4 2.64 uIU/mL (0.32-4.0)
[2024-04-05 11:18] LABS: Glucose, Whole Blood 84 mg/dL (60-115)
[2024-04-05] MEDS: Losartan Potassium 25 MG TABLET PO (11:20)
--- NOTE | 2024-04-05 11:25 | PC.RT ---
pt transitioned from hfnc to 5 lpm n/c caden well. Nurse aware.
[2024-04-05] MEDS: cefTRIAXone sodium 2 GM in 0.9 % Sodium Chloride 50 ML IV (11:28)
[2024-04-05 18:17] LABS: Glucose, Whole Blood 98 mg/dL (60-115)
[2024-04-05 18:54] LABS: Anion Gap 20 (12-20); Blood Urea Nitrogen 37 mg/dL (9-16); Calcium 8.6 mg/dL (8.4-10.2); Carbon Dioxide 22 mmol/L (22-29); Chloride 103 mmol/L (96-108); Creatinine Clr Calc Pharmacy 40.4; Estimated Glomerular Filt Rate 35; Glucose Random 101 mg/dL (60-115); Magnesium 1.9 mg/dL (1.6-2.6); Phosphorus 3.2 mg/dL (2.7-4.5); Potassium 2.8 mmol/L (3.3-5.1); Sodium 142 mmol/L (135-145)
[2024-04-05] MEDS: Potassium Chloride Packet 20 MEQ PACKET 40 MEQ PO (20:16)
[2024-04-05] MEDS: Potassium Chloride/H20 10 MEQ/100 ML PIGGYBACK 100 MEQ IV ×2 (20:18→21:26)
[2024-04-06] VITALS (23 sets, daily range): BP systolic 143–164; BP diastolic 70–95; PULSE 97–127; RESP 15–27; TEMP 36.9–37.6; O2SAT 96–100
[2024-04-06 00:02] LABS: Glucose, Whole Blood 104 mg/dL (60-115)
[2024-04-06] MEDS: Acetaminophen 325 MG TABLET 650 MG PO ×3 (03:34→21:32)
[2024-04-06 04:33] LABS: VBG Base Excess -0.9 mmol/L; VBG HCO3 21 mmol/L (22-26); VBG pCO2 28 mmHg; VBG pH 7.48 (7.32-7.43); VBG pO2 92 mmHg
[2024-04-06 04:45] LABS: Venous Blood Gas Refer to POC result
[2024-04-06 05:01] LABS: Hematocrit 31.7 % (42.0-52.0); Hemoglobin 11.6 g/dl (14.0-18.0); Mean Corpuscular HGB Conc 36.6 g/dl (31.0-36.0); Mean Corpuscular Hemoglobin 30.6 pg (27.0-33.0); Mean Corpuscular Volume 83.6 fL (80.0-98.0); Mean Platelet Volume 11.1 fL (9.4-12.4); Platelet Count 165 X10*3/uL (160-400); Red Blood Count 3.79 X10*6/uL (4.60-5.80); Red Cell Distribution Width 14.5 % (11.0-16.0); White Blood Count 12.4 X10*3/uL (4.8-10.8)
[2024-04-06] MEDS: Heparin Sodium,Porcine 5,000 UNIT/ML VIAL 5000 UNIT SUBCUT ×3 (05:09→20:16)
[2024-04-06] MEDS: HYDROmorphone HCl 0.5 MG/0.5 ML SYRINGE IVPUSH (05:09)
[2024-04-06 05:18] LABS: Anion Gap 20 (12-20); Blood Urea Nitrogen 37 mg/dL (9-16); Calcium 8.6 mg/dL (8.4-10.2); Carbon Dioxide 19 mmol/L (22-29); Chloride 104 mmol/L (96-108); Creatinine Clr Calc Pharmacy 49.8; Estimated Glomerular Filt Rate 44; Glucose Random 107 mg/dL (60-115); Magnesium 1.8 mg/dL (1.6-2.6); Phosphorus 2.5 mg/dL (2.7-4.5); Potassium 3.2 mmol/L (3.3-5.1); Sodium 140 mmol/L (135-145)
[2024-04-06 05:31] LABS: Band Neutrophils Percent 11 % (3-5); Eosinophils Absolute Manual 0.1 X10*3/uL (0.0-0.4); Eosinophils Percent Manual 1 % (0-4); Lymphocytes Absolute Manual 0.6 X10*3/uL (1.2-4.9); Lymphocytes Percent Manual 5 % (20-40); Metamyelocytes Absolute 0.1 X10*3/uL; Metamyelocytes Percent 1 %; Monocytes Absolute Manual 1.1 X10*3/uL (0.1-1.2); Monocytes Percent Manual 9 % (2-11); Neutrophils Absolute Manual 10.4 X10*3/uL (2.0-8.3); Neutrophils Percent Manual 73 % (45-73)
[2024-04-06 05:32] LABS: Acanthocytes 1+ (0-2) /OIF; Platelet Estimate NORMAL (NORMAL); Platelet Morphology Comment NORMAL; RBC Morphology NOTED; Schistocytes 1+ (0-2) /OIF
[2024-04-06 05:33] LABS: Dohle Bodies PRESENT; Polychromasia 1+ (0-2) /OIF; Spherocytes 1+ (0-2) /OIF; Target Cells 1+ (5-14) /OIF; Toxic Vacuolation PRESENT
[2024-04-06] MEDS: Potassium Phosphate/NS 15 MMOL/250 ML PLAST..BAG 62.5 MMOL IV ×2 (05:52→09:45)
--- NOTE | 2024-04-06 08:27 | PM.CCPN ---
Subjective Subjective Date of Service: 04/06/24 Interval History: no significant overnight events Critical Care Time (minutes): 60 Physical Exam Vital Signs: Vital Signs: Last Vital Signs Temp 99.0 F 04/06/24 08:00 Pulse 99 04/06/24 08:00 Resp 22 H 04/06/24 08:00 BP 150/74 H 04/06/24 08:00 Pulse Ox 98 04/06/24 08:00 O2 Del Method Nasal Cannula 04/06/24 07:00 O2 Flow Rate 4.5 04/06/24 08:00 FiO2 40 04/05/24 11:00 BMI result Body Mass Index 32.7 Const: Other: fatigued, though easily arousable w/ verbal stimulus General: cooperative, healthy appearing, comfortable, no acute distress and well developed Orientation/consciousness: patient oriented x3 HEENT: Head: Yes normal to inspection, Yes normocephalic and Yes atraumatic Eyes: General: appearance normal, both eyes and all related structures Neck: Neck: Yes normal visual inspection, Yes full ROM, Yes no meningeal signs, Yes trachea midline and Yes supple Chest: Chest palpation & inspection: normal inspection of the chest Resp: Other: no appreciable rales, rhonchi, wheezing Effort & Inspection: normal respiratory effort Cardio: Rate: regular rate Rhythm: abnormal rhythm GI: Inspection: Yes normal to inspection, No Abdominal wall edema and No distended Palpation (GI): Soft to palpation, not firm, nontender, no guarding and not rigid Skin: General skin exam: no rashes or lesions noted Neuro: General: patient oriented x3, tone normal, moves all extremities, no meningeal signs and no focal motor deficits Extrem: Other: 1+ pitting edema to bilateral shins General: Yes normal to inspection, Yes full ROM and Yes capillary refill normal Psych: Appearance: grossly normal Objective Data Labs 04/06/24 04:27 04/06/24 04:27 Labs: Laboratory Results - last 24 hr 04/05/24 04/05/24 04/05/24 08:10 11:15 18:13 WBC RBC Hgb Hct MCV MCH MCHC RDW Plt Count MPV Immature Gran % (Auto) Neut % (Auto) Lymph % (Auto) [place] % (Auto) Eos % (Auto) Baso % (Auto) Lymph # (Auto) [place] # (Auto) Eos # (Auto) Baso # (Auto) Abs Immat Gran (auto) Absolute Neuts (auto) Absolute Nucleated RBC Nucleated RBC % (auto) Neutrophils % (Manual) Band Neutrophils % Lymphocytes % (Manual) Monocytes % (Manual) Eosinophils % (Manual) Metamyelocytes % Abs Neuts (Manual) Lymphocytes # (Manual) Monocytes # (Manual) Eosinophils # (Manual) Metamyelocytes # Toxic Vacuolation Dohle Bodies Platelet Estimate Plt Morphology Comment RBC Morphology Polychromasia Spherocytes Target Cells Acanthocytes (Spur) Schistocytes VBG pH VBG pCO2 VBG pO2 VBG HCO3 VBG O2 Saturation VBG Base Excess Sodium Potassium Chloride Carbon Dioxide Anion Gap BUN Creatinine Estim Creat Clear Calc Estimated GFR POC Glucose 84 98 Random Glucose Calcium Phosphorus Magnesium TSH 2.64 04/05/24 04/05/24 04/06/24 18:18 23:58 04:23 WBC RBC Hgb Hct MCV MCH MCHC RDW Plt Count MPV Immature Gran % (Auto) Neut % (Auto) Lymph % (Auto) [place] % (Auto) Eos % (Auto) Baso % (Auto) Lymph # (Auto) [place] # (Auto) Eos # (Auto) Baso # (Auto) Abs Immat Gran (auto) Absolute Neuts (auto) Absolute Nucleated RBC Nucleated RBC % (auto) Neutrophils % (Manual) Band Neutrophils % Lymphocytes % (Manual) Monocytes % (Manual) Eosinophils % (Manual) Metamyelocytes % Abs Neuts (Manual) Lymphocytes # (Manual) Monocytes # (Manual) Eosinophils # (Manual) Metamyelocytes # Toxic Vacuolation Dohle Bodies Platelet Estimate Plt Morphology Comment RBC Morphology Polychromasia Spherocytes Target Cells Acanthocytes (Spur) Schistocytes VBG pH 7.48 H VBG pCO2 28 VBG pO2 92 VBG HCO3 21 L VBG O2 Saturation 99.0 VBG Base Excess -0.9 Sodium 142 Potassium 2.8 L* Chloride 103 Carbon Dioxide 22 Anion Gap 20 BUN 37 H Creatinine 1.96 H Estim Creat Clear Calc 40.4 Estimated GFR 35 POC Glucose 104 Random Glucose 101 Calcium 8.6 Phosphorus 3.2 Magnesium 1.9 TSH 04/06/24 04:27 WBC 12.4 H RBC 3.79 L Hgb 11.6 L Hct 31.7 L MCV 83.6 MCH 30.6 MCHC 36.6 H RDW 14.5 Plt Count 165 MPV 11.1 Immature Gran % (Auto) Cancelled Neut % (Auto) Cancelled Lymph % (Auto) Cancelled [place] % (Auto) Cancelled Eos % (Auto) Cancelled Baso % (Auto) Cancelled Lymph # (Auto) Cancelled [place] # (Auto) Cancelled Eos # (Auto) Cancelled Baso # (Auto) Cancelled Abs Immat Gran (auto) Cancelled Absolute Neuts (auto) Cancelled Absolute Nucleated RBC 0.000 Nucleated RBC % (auto) 0.0 Neutrophils % (Manual) 73 Band Neutrophils % 11 H Lymphocytes % (Manual) 5 L Monocytes % (Manual) 9 Eosinophils % (Manual) 1 Metamyelocytes % 1 Abs Neuts (Manual) 10.4 H Lymphocytes # (Manual) 0.6 L Monocytes # (Manual) 1.1 Eosinophils # (Manual) 0.1 Metamyelocytes # 0.1 Toxic Vacuolation PRESENT Dohle Bodies PRESENT Platelet Estimate NORMAL Plt Morphology Comment NORMAL RBC Morphology NOTED Polychromasia 1+ (0-2) Spherocytes 1+ (0-2) Target Cells 1+ (5-14) Acanthocytes (Spur) 1+ (0-2) Schistocytes 1+ (0-2) VBG pH VBG pCO2 VBG pO2 VBG HCO3 VBG O2 Saturation VBG Base Excess Sodium 140 Potassium 3.2 L Chloride 104 Carbon Dioxide 19 L Anion Gap 20 BUN 37 H Creatinine 1.59 H Estim Creat Clear Calc 49.8 Estimated GFR 44 POC Glucose Random Glucose 107 Calcium 8.6 Phosphorus 2.5 L Magnesium 1.8 TSH Microbiology Microbiology Results: Microbiology 04/02/24 11:00 Blood - Venous Blood Culture - Preliminary No growth after 48 hours. 04/02/24 10:14 Blood - Venous Blood Culture - Preliminary No growth after 48 hours. 04/02/24 08:08 Aspirate - Induced Gram Stain - Final 04/02/24 08:08 Aspirate - Induced Sputum Culture - Final 04/01/24 00:50 Blood - Venous Blood Culture - Final Escherichia coli 04/01/24 00:49 Blood - Venous Blood Culture - Final Escherichia coli Coag negative Staphylococcus 04/01/24 Unknown Urine Catheterized - Estevez Catheter Urine Culture - Final Escherichia coli Progress Note: A&P Assessment and plan (1) Septic shock: Status: Acute (2) Pyelonephritis due to Escherichia coli: Status: Acute (3) Acute hypoxic respiratory failure: Status: Acute Plan Patient is a 63 Y M w/ hypertension, hypothyroidism, and blindness p/w diarrhea, found to have pyelonephritis d/t e. coli, c/b septic shock, multi-system organ failure, including respiratory failure, intubated 04/02, extubated 04/04 N: no acute issues CV: septic shock, resolved; hypertension R: acute hypoxic respiratory failure, intubated 04/02, extubated 04/04 GI: NPO, awaiting speech/swallow; advance diet as tolerated : acute pyelonephritis d/t e. coli, c/b renal insufficiency, improving H: thrombocytopenia, to monitor ID: acute pyelonephritis d/t e. coli c/b bacteremia; ceftriaxone E: hypothyroidism P: no acute issues Quality Stroke Does the patient have a stroke diagnosis?: No VTE Prior VTE?: No VTE Risk Level:: Medical - moderate - high VTE Device Contraindication: N/A - Device Ordered VTE Drug Contraindication: N/A - Med Ordered
[2024-04-06] MEDS: 0.9 % Sodium Chloride Flush 3 ML SYRINGE IVFLUSH ×2 (08:44→15:27)
[2024-04-06] MEDS: Losartan Potassium 25 MG TABLET PO (08:44)
[2024-04-06] MEDS: Tamsulosin HCL 0.4 MG CAPSULE PO (08:44)
[2024-04-06] MEDS: Levothyroxine Sodium 100 MCG/5 ML VIAL 50 MCG IVPUSH (08:44)
--- NOTE | 2024-04-06 09:59 | MHC.CLN ---
Addendum entered by Balbina Myers RD 04/06/24 10:49: SEEN BY MUSIC SUPERVISOR 04/06. DIET CHANGED TO REGULAR, CHOPPED, WITH THIN LIQUIDS, Original Note: F/U PATIENT EXTUBATED 04/04. CURRENTLY NPO PENDING SWALLOW EVAL. CONTINUE TO FOLLOW WITH TEAM.
[2024-04-06] MEDS: cefTRIAXone sodium 2 GM in 0.9 % Sodium Chloride 50 ML IV (12:02)
[2024-04-06 12:33] LABS: Glucose, Whole Blood 115 mg/dL (60-115)
--- NOTE | 2024-04-06 13:16 | MHC.SL.SWA ---
Speech Pathologist Impression: Risk of Aspiration Due to: Hx of Recent Extubation Dysphasia Diet Status: Caution/assistance needed at meals secondary to patient's blindness. Liquid Consistency and Strategies for Safe Swallow: Liquid Intake Recommendation: Thin Liquid Intake Strategies: Solid Food Consistency: Dietary Recommendations: Chopped/Advanced (NDD3) Additional Modifications to Solid Foods: Chopped/Advanced recommended as food is pre-cut, decreasing risk of patient accessing too large pieces of food/choking given blindness. Due to blindness, patient will require assistance at all meals. Oral Medication Intake: Whole with Liquid Please contact the pharmacy regarding appropriate crushable or liquid drug formulations that are available whenever modified delivery is recommended. Compensatory Strategies and Precautions to be Taken for Safe Swallow: Sitting Upright (90 deg) Liquids from Cup Liquids from Straw Small Bites and Sips Alternate Liquids/Solids Supervision While Eating and Drinking for Safe Swallow: Total Supervision (1:1) Foods to Avoid: Too large pieces of food. Swallowing Recommended Treatments: Compens. Strategy Educat. Recommendation for Speech: Inpatient Speech Therapy Comment: Patient presents with oral motor function and swallow mostly WFL. Concern for patient's feeding needs related to blindness: in this setting, recommend Chopped/Advanced diet so that food is precut for patient, full supervision with assistance as needed at meals. [place] [facility] to f/u X1 to assure toleration of meal, appropriate support/supervision at meals. MD/RD notified of recommendation by secure text, RN in person. Frequency/Duration: Date Range for Service Req: Timeline to reassess: Wildlife Refuge Manager Clinican/Clinical Fellow: No Supervisory Statement: I have reviewed and agree with the student/clinical fellow's documentation: N/A Speech Language Pathologist: Genna Woods M.A., [facility]
--- NOTE | 2024-04-06 21:13 | PC.NURSE ---
Estevez catheter to remain in place upon transfer from ICU to [facility] per Lorena Roland EDGE GRINDER. Urology following and had recommended, Estevez stay for approximately 3-4 weeks. Voiding trial in office.
[2024-04-07 04:00] VITALS: BP 164/78; PULSE 94; RESP 18; TEMP 37.4; O2SAT 97
[2024-04-07] MEDS: Acetaminophen 325 MG TABLET 650 MG PO (04:18)
[2024-04-07] MEDS: Heparin Sodium,Porcine 5,000 UNIT/ML VIAL 5000 UNIT SUBCUT ×3 (04:19→20:24)
[2024-04-07] MEDS: 0.9 % Sodium Chloride Flush 3 ML SYRINGE IVFLUSH ×3 (04:19→17:54)
[2024-04-07] MEDS: Levothyroxine Sodium 112 MCG TABLET PO (05:25)
[2024-04-07 05:44] VITALS: BMI 31.0
[2024-04-07 06:24] LABS: MANUAL DIFF FLAG NO
[2024-04-07 06:45] LABS: Basophils Percent Auto 0.3 % (0-2); Eosinophils Absolute Auto 0.2 X10*3/uL (0.0-0.4); Eosinophils Percent Auto 1.5 % (0-4); Hematocrit 30.5 % (42.0-52.0); Imm Gran Abs Auto 0.57 X10*3/uL (0.00-0.03); Imm Gran Pct Auto 4.9 % (0.0-0.4); Lymphocytes Absolute Auto 1.4 X10*3/uL (1.2-4.9); Lymphocytes Percent Auto 11.5 % (20-40); Mean Corpuscular HGB Conc 36.1 g/dl (31.0-36.0); Mean Corpuscular Hemoglobin 30.6 pg (27.0-33.0); Mean Platelet Volume 10.8 fL (9.4-12.4); Monocytes Percent Auto 8.4 % (2-11); Neutrophils Absolute Auto 8.6 x10*3/uL (2.0-8.3); Neutrophils Percent Auto 73.4 % (45-73); Platelet Count 168 X10*3/uL (160-400); Red Blood Count 3.59 X10*6/uL (4.60-5.80); Red Cell Distribution Width 14.3 % (11.0-16.0); White Blood Count 11.7 X10*3/uL (4.8-10.8)
[2024-04-07 06:54] LABS: Albumin Level 3.1 g/dL (3.5-5.0)
[2024-04-07 06:59] VITALS: BP 160/85; PULSE 93; RESP 18; TEMP 36.9; O2SAT 3
[2024-04-07 07:14] LABS: Anion Gap 16 (12-20); Blood Urea Nitrogen 32 mg/dL (9-16); Calcium 8.2 mg/dL (8.4-10.2); Carbon Dioxide 23 mmol/L (22-29); Chloride 107 mmol/L (96-108); Creatinine Clr Calc Pharmacy 62.7; Estimated Glomerular Filt Rate 59; Glucose Random 105 mg/dL (60-115); Magnesium 1.9 mg/dL (1.6-2.6); Phosphorus 2.3 mg/dL (2.7-4.5); Potassium 3.3 mmol/L (3.3-5.1); Sodium 143 mmol/L (135-145)
[2024-04-07] MEDS: Tamsulosin HCL 0.4 MG CAPSULE PO (08:41)
[2024-04-07] MEDS: Losartan Potassium 50 MG TABLET PO (08:41)
--- NOTE | 2024-04-07 08:47 | P.PNNP_ITS ---
Subjective Subjective Date of Service: 04/07/24 Interval history: All recent data reviewed. Renal function continue to improve Physical Exam 2 Vital Signs: Vital Signs: Last Vital Signs Temp 98.5 F 04/07/24 06:59 Pulse 93 04/07/24 06:59 Resp 18 04/07/24 06:59 BP 160/85 H 04/07/24 06:59 Pulse Ox 3 L 04/07/24 06:59 O2 Del Method Room Air 04/07/24 04:00 O2 Flow Rate 3 04/06/24 21:23 FiO2 40 04/05/24 11:00 BMI result Body Mass Index 31.0 Const: General: no acute distress Eyes: EOM: EOMs intact bilaterally Neck: Neck: Yes supple Resp: Auscultation: diminished lung sounds Cardio: Rate: regular rate GI: Palpation (GI): Soft to palpation Neuro: General: moves all extremities Objective Data Labs 04/07/24 05:52 04/07/24 05:52 Labs: Laboratory Results - last 24 hr 04/06/24 04/07/24 12:30 05:52 WBC 11.7 H RBC 3.59 L Hgb 11.0 L Hct 30.5 L MCV 85.0 MCH 30.6 MCHC 36.1 H RDW 14.3 Plt Count 168 MPV 10.8 Immature Gran % (Auto) 4.9 H Neut % (Auto) 73.4 H Lymph % (Auto) 11.5 L [place] % (Auto) 8.4 Eos % (Auto) 1.5 Baso % (Auto) 0.3 Lymph # (Auto) 1.4 [place] # (Auto) 1.0 Eos # (Auto) 0.2 Baso # (Auto) 0.0 Abs Immat Gran (auto) 0.57 H Absolute Neuts (auto) 8.6 H Absolute Nucleated RBC 0.000 Nucleated RBC % (auto) 0.0 Sodium 143 Potassium 3.3 Chloride 107 Carbon Dioxide 23 Anion Gap 16 BUN 32 H Creatinine 1.23 Estim Creat Clear Calc 62.7 Estimated GFR 59 POC Glucose 115 Random Glucose 105 Calcium 8.2 L Phosphorus 2.3 L Magnesium 1.9 Albumin 3.1 L Microbiology Microbiology Results: Microbiology 04/02/24 11:00 Blood - Venous Blood Culture - Preliminary No growth after 48 hours. 04/02/24 10:14 Blood - Venous Blood Culture - Preliminary No growth after 48 hours. 04/02/24 08:08 Aspirate - Induced Gram Stain - Final 04/02/24 08:08 Aspirate - Induced Sputum Culture - Final 04/01/24 00:50 Blood - Venous Blood Culture - Final Escherichia coli 04/01/24 00:49 Blood - Venous Blood Culture - Final Escherichia coli Coag negative Staphylococcus 04/01/24 Unknown Urine Catheterized - Estevez Catheter Urine Culture - Final Escherichia coli Procedures Date of Service Date of Service: 04/07/24 Assessment & Plan Assessment and plan (1) Acute renal failure: Status: Acute Plan EBEN due to tubular injury in a setting of sepsis shock. UO good; Serum creatinine improving C/W current supportive management for now Progress Note: Quality Stroke Does the patient have a stroke diagnosis?: No
--- NOTE | 2024-04-07 09:26 | MHC.CLN ---
F/U PO INTAKE 25% X1 MEAL DIET RX: REGULAR CHOPPED PER LEGAL ARBITRATOR MONITOR PO INTAKE IF POOR <25% X 3 DAYS, RECOMMEND ADDING A NUTRITION SUPPLEMENT RD TO FOLLOW WEEKLY
--- NOTE | 2024-04-07 10:51 | P.PNIM_ITS ---
Subjective Subjective Date of Service: 04/07/24 Interval History: Ill-appearing. Response to questions in a soft voice. Legally blind. Voices no complaints Review of Systems Denies chest pain Denies shortness of breath Denies nausea vomiting diarrhea Denies fever chills Physical Exam 2 Vital Signs: Vital Signs: Last Vital Signs Temp 98.5 F 04/07/24 06:59 Pulse 93 04/07/24 06:59 Resp 18 04/07/24 06:59 BP 160/85 H 04/07/24 06:59 Pulse Ox 3 L 04/07/24 06:59 O2 Del Method Room Air 04/07/24 04:00 O2 Flow Rate 3 04/06/24 21:23 FiO2 40 04/05/24 11:00 BMI result Body Mass Index 31.0 Const: Other: Ill-appearing however alert. No acute issues Resp: Other: Clear to auscultation bilaterally no rales rhonchi or wheezes Cardio: Other: No S4; positive S1-S2; no S3 murmurs rubs or gallops GI: Other: Soft nontender nondistended quiet bowel sounds Extrem: Other: No edema bilaterally Objective Data Active Medications Acetaminophen (Acetaminophen 325 Mg Tablet) 650 mg PO Q6H PRN PRN Reason: Pain, Mild (Pain Scale 1-3), fever or headache Last Admin: 04/07/24 04:18 Dose: 650 mg Documented By: GALINA Heparin Sodium (Porcine) (Heparin Sodium,Porcine 5,000 Unit/Ml Vial) 5,000 unit SUBCUT Q8H [facility] Last Admin: 04/07/24 04:19 Dose: 5,000 unit Documented By: GALINA Hydromorphone HCl (Hydromorphone Hcl 0.5 Mg/0.5 Ml Syringe) 0.5 mg IVPUSH Q2H PRN; Protocol PRN Reason: Pain, Moderate(Pain Scale 4-6) Last Admin: 04/06/24 05:09 Dose: 0.5 mg Documented By: JOSH Ceftriaxone Sodium 2 gm/ (Sodium Chloride) 50 mls @ 100 mls/hr IV Q24H [facility] Last Infusion: 04/06/24 13:11 Dose: Infused Documented By: ADELE Levothyroxine Sodium (Levothyroxine Sodium 112 Mcg Tablet) 112 mcg PO DAILY@0600 [facility] Last Admin: 04/07/24 05:25 Dose: 112 mcg Documented By: GALINA Losartan Potassium (Losartan Potassium 50 Mg Tablet) 50 mg PO DAILY [facility]; Protocol Last Admin: 04/07/24 08:41 Dose: 50 mg Documented By: CASSI Nicotine (Nicotine 7 Mg Patch.Td24) 7 mg TRANSDERMA DAILY [facility] Last Admin: 04/07/24 10:04 Dose: Not Given Documented By: CASSI Non-Admin Reason: Patient Refused Ondansetron HCl (Ondansetron Hcl 4 Mg/2 Ml Vial) 4 mg IVPUSH Q8H PRN PRN Reason: Nausea and Vomiting Sodium Chloride (0.9 % Sodium Chloride Flush 3 Ml Syringe) 3 ml IVFLUSH QSHIFT [facility] Last Admin: 04/07/24 08:41 Dose: 3 ml Documented By: CASSI Tamsulosin HCl (Tamsulosin Hcl 0.4 Mg Capsule) 0.4 mg PO DAILY [facility] Last Admin: 04/07/24 08:41 Dose: 0.4 mg Documented By: CASSI Labs 04/07/24 05:52 04/07/24 05:52 Labs: Laboratory Results - last 24 hr 04/06/24 04/07/24 12:30 05:52 MCV 85.0 MCH 30.6 MCHC 36.1 H RDW 14.3 Plt Count 168 MPV 10.8 Immature Gran % (Auto) 4.9 H Neut % (Auto) 73.4 H Lymph % (Auto) 11.5 L [place] % (Auto) 8.4 Eos % (Auto) 1.5 Baso % (Auto) 0.3 Lymph # (Auto) 1.4 [place] # (Auto) 1.0 Eos # (Auto) 0.2 Baso # (Auto) 0.0 Abs Immat Gran (auto) 0.57 H Absolute Neuts (auto) 8.6 H Absolute Nucleated RBC 0.000 Nucleated RBC % (auto) 0.0 Anion Gap 16 Estim Creat Clear Calc 62.7 Estimated GFR 59 POC Glucose 115 Random Glucose 105 Calcium 8.2 L Phosphorus 2.3 L Magnesium 1.9 Albumin 3.1 L Assessment and Plan (1) Septic shock: Status: Acute (2) Pyelonephritis due to Escherichia coli: Status: Acute Plan 63-year-old male with pertinent history of hypothyroidism, hypertension, mood disorder, peripheral neuropathy who presents to the emergency department for evaluation of inability to urinate and blood in stools. 1.Septic shock due to acute pyelonephritis/E coli bacteremia sensitive to ceftriaxone -acute hypoxic respiratory failure, intubated 04/02, extubated 04/04.. Transfer out of ICU 04/06/2024 -ceftriaxone(7) -ID consult 2.Acute urinary retention in the setting of above and in a patient with BPH -continue nolasco x 3-4 weeks per Urology -continue flomax 3.Acute kidney injury (resolving in response to therapies) -urine output continues to improve -follow renals/divalents 4.Acute metabolic acidosis due to above -resolved 5.Acute GI bleed with blood loss anemia -IV Protonix b.i.d. -follow daily CBC 6.Hypertension -acceptable control off therapies -and packed outpatient therapies when clinically appropriate Mechanical Full code Requires ongoing inpatient stay due to septic shock, EBEN, pyelonephritis requiring transfer to ICU, IV antibiotics, expert consultation and vasopressors for blood pressure support Quality Stroke Does the patient have a stroke diagnosis?: No VTE Prior VTE?: No VTE Risk Level:: Medical - moderate - high VTE Device Contraindication: N/A - Device Ordered VTE Drug Contraindication: N/A - Med Ordered
[2024-04-07 11:08] VITALS: BP 165/84; PULSE 99; RESP 20; TEMP 37.2; O2SAT 96
[2024-04-07] MEDS: cefTRIAXone sodium 2 GM in 0.9 % Sodium Chloride 50 ML IV (12:46)
--- NOTE | 2024-04-07 13:45 | MHC.SL.DTX ---
Dysphagia Diet modifications: Last documented Solid diet consistencies: Chopped/Advanced (NDD3) Last documented Liquid consistency: Thin Last documented Medication Administration: Changes made to current diet?: Yes: 1 f/u Liquid Consistency and Strategies: Liquid Intake Recommendation: Thin Compensatory Strategies for Safe Swallow: Compensatory Strategies for Safe Swallow(b): Sitting Upright (90 deg) Oral Check Solid Food Consistency: Dietary Recommendations: Chopped/Advanced (NDD3) Additional Modifications to Solids: Chopped/Advanced recommended as food is pre-cut, decreasing risk of patient accessing too large pieces of food/choking given blindness. Due to blindness, patient will require assistance at all meals. Oral Medication Intake: Whole with Liquid Strategies and Precautions to be Taken for Safe Swallow: Sitting Upright (90 deg) Oral Check Supervision While Eating and/Drinking: Total Assistance (1:1) Foods to Avoid: Too large pieces of food. Swallowing Recommended Treatments: Compens. Strategy Educat. Recommendation for Speech: Inpatient Speech Therapy Additional Comments: Treatment: Pt is provided bites of his Lunch tray consisting of Chopped/Advanced Solids (NDD3) and Thin Liquids. HE tolerates the solids taking time to prepare them in the oral phase, but he swallows promptly and quickly with no overt s/s of aspiration. He is mainly concerned with the drinks and has almost an entire cup of Thin Liquids via consecutive straw sips with no overt s/s of aspiration. He will continue to require 1:1 assistance with feeding due to his vision impairment. As MECHANICAL APPRENTICE was leaving he declined any further solids, but instead requested, more juice . MECHANICAL APPRENTICE recommends we continue the current diet of CHOPPED/ADVANCED SOLIDS and THIN LIQUIDS. MEDS WHOLE with PUREE. Assessment: Parks And Recreation Worker Clinican/Clinical Fellow: No Supervisory Statement: I have reviewed and agree with the student/clinical fellow's documentation: N/A Speech Language Pathologist: Baltazar Mccall M.A., [facility]CHAN[facility] APPRENTICE
[2024-04-07 15:37] VITALS: BP 160/78; PULSE 93; RESP 18; TEMP 36.8; O2SAT 96
[2024-04-07] MEDS: Potassium Phosphate/NS 15 MMOL/250 ML PLAST..BAG 62.5 MMOL IV (17:30)
[2024-04-07] MEDS: Pantoprazole Sodium 40 MG/10 ML VIAL IVPUSH (17:55)
[2024-04-07 20:00] VITALS: BP 150/70; PULSE 86; RESP 20; TEMP 37.1; O2SAT 96
[2024-04-08] VITALS: BP 145/79; PULSE 82; RESP 20; TEMP 37.1; O2SAT 98
[2024-04-08 04:00] VITALS: BP 152/76; PULSE 85; RESP 20; TEMP 36.9; O2SAT 98
[2024-04-08] MEDS: Heparin Sodium,Porcine 5,000 UNIT/ML VIAL 5000 UNIT SUBCUT ×3 (05:40→20:57)
[2024-04-08] MEDS: Levothyroxine Sodium 112 MCG TABLET PO (05:40)
[2024-04-08] MEDS: Pantoprazole Sodium 40 MG/10 ML VIAL IVPUSH ×2 (05:40→18:19)
[2024-04-08] MEDS: 0.9 % Sodium Chloride Flush 3 ML SYRINGE IVFLUSH ×4 (05:41→20:58)
[2024-04-08 06:00] VITALS: BMI 30.3
[2024-04-08 06:27] LABS: Anion Gap 12 (12-20); Blood Urea Nitrogen 24 mg/dL (9-16); Calcium 8.1 mg/dL (8.4-10.2); Carbon Dioxide 25 mmol/L (22-29); Chloride 108 mmol/L (96-108); Creatinine Clr Calc Pharmacy 74.9; Estimated Glomerular Filt Rate > 60; Glucose Random 107 mg/dL (60-115); Magnesium 1.8 mg/dL (1.6-2.6); Phosphorus 2.1 mg/dL (2.7-4.5); Potassium 3.1 mmol/L (3.3-5.1); Sodium 142 mmol/L (135-145)
[2024-04-08 07:36] VITALS: BP 127/84; PULSE 92; RESP 18; TEMP 37.2; O2SAT 98
[2024-04-08 07:53] LABS: Basophils Absolute Auto 0.1 X10*3/uL (0.0-0.2); Basophils Percent Auto 0.4 % (0-2); Eosinophils Absolute Auto 0.3 X10*3/uL (0.0-0.4); Hematocrit 28.9 % (42.0-52.0); Hemoglobin 10.3 g/dl (14.0-18.0); Imm Gran Abs Auto 0.52 X10*3/uL (0.00-0.03); Imm Gran Pct Auto 4.2 % (0.0-0.4); Lymphocytes Absolute Auto 1.7 X10*3/uL (1.2-4.9); Lymphocytes Percent Auto 13.8 % (20-40); Mean Corpuscular HGB Conc 35.6 g/dl (31.0-36.0); Mean Corpuscular Hemoglobin 30.8 pg (27.0-33.0); Mean Corpuscular Volume 86.5 fL (80.0-98.0); Mean Platelet Volume 10.3 fL (9.4-12.4); Monocytes Absolute Auto 0.9 X10*3/uL (0.1-1.2); Neutrophils Percent Auto 72.6 % (45-73); Platelet Count 227 X10*3/uL (160-400); Red Blood Count 3.34 X10*6/uL (4.60-5.80); Red Cell Distribution Width 14.6 % (11.0-16.0); White Blood Count 12.3 X10*3/uL (4.8-10.8)
--- NOTE | 2024-04-08 10:08 | MHC.SLORD ---
Addendum entered and electronically signed by LAWRENCE Bassett 04/08/24 12:54: INTERVENTIONAL RADIOLOGY TECH attempted to see pt 2x during lunch, he refused all PO. Original Note: Speech Language Pathology Order Status: Pt refused PO trials w/ INTERVENTIONAL RADIOLOGY TECH this morning. INTERVENTIONAL RADIOLOGY TECH to return later in day.
--- NOTE | 2024-04-08 10:32 | MHC.CM.PN ---
Per ROUNDS discussion, Patient is not yet medically cleared for dc (IV Ceftriaxone, IV Dilaudid, IV Protonix); Patient may benefit from a PT Eval to assist with disposition and CM will follow.
[2024-04-08 10:57] VITALS: BP 164/77; PULSE 89; RESP 20; TEMP 36.9; O2SAT 97
--- NOTE | 2024-04-08 11:16 | P.PNIM_ITS ---
Subjective Subjective Date of Service: 04/08/24 Interval History: Essentially no change overnight. Awake will speak clearly but ill-appearing. Legally blind Review of Systems Denies chest pain Denies shortness of breath Denies nausea vomiting diarrhea Denies fever chills Physical Exam 2 Vital Signs: Vital Signs: Last Vital Signs Temp 98.5 F 04/08/24 10:57 Pulse 89 04/08/24 10:57 Resp 20 04/08/24 10:57 BP 164/77 H 04/08/24 10:57 Pulse Ox 97 04/08/24 10:57 O2 Del Method Nasal Cannula 04/08/24 10:57 O2 Flow Rate 3 04/08/24 10:57 FiO2 40 04/05/24 11:00 BMI result Body Mass Index 30.3 Const: Other: Ill-appearing however alert. No acute issues Resp: Other: Clear to auscultation bilaterally no rales rhonchi or wheezes Cardio: Other: No S4; positive S1-S2; no S3 murmurs rubs or gallops GI: Other: Soft nontender nondistended quiet bowel sounds Extrem: Other: No edema bilaterally Objective Data Active Medications Acetaminophen (Acetaminophen 325 Mg Tablet) 650 mg PO Q6H PRN PRN Reason: Pain, Mild (Pain Scale 1-3), fever or headache Last Admin: 04/07/24 04:18 Dose: 650 mg Documented By: GALINA Heparin Sodium (Porcine) (Heparin Sodium,Porcine 5,000 Unit/Ml Vial) 5,000 unit SUBCUT Q8H [facility] Last Admin: 04/08/24 05:40 Dose: 5,000 unit Documented By: MARIE Hydromorphone HCl (Hydromorphone Hcl 0.5 Mg/0.5 Ml Syringe) 0.5 mg IVPUSH Q2H PRN; Protocol PRN Reason: Pain, Moderate(Pain Scale 4-6) Last Admin: 04/06/24 05:09 Dose: 0.5 mg Documented By: JOSH Ceftriaxone Sodium 2 gm/ (Sodium Chloride) 50 mls @ 100 mls/hr IV Q24H [facility] Last Infusion: 04/07/24 15:45 Dose: Infused Documented By: CASSI Levothyroxine Sodium (Levothyroxine Sodium 112 Mcg Tablet) 112 mcg PO DAILY@0600 [facility] Last Admin: 04/08/24 05:40 Dose: 112 mcg Documented By: MARIE Losartan Potassium (Losartan Potassium 50 Mg Tablet) 50 mg PO DAILY [facility]; Protocol Last Admin: 04/07/24 08:41 Dose: 50 mg Documented By: CASSI Nicotine (Nicotine 7 Mg Patch.Td24) 7 mg TRANSDERMA DAILY [facility] Last Admin: 04/07/24 10:04 Dose: Not Given Documented By: CASSI Non-Admin Reason: Patient Refused Ondansetron HCl (Ondansetron Hcl 4 Mg/2 Ml Vial) 4 mg IVPUSH Q8H PRN PRN Reason: Nausea and Vomiting Pantoprazole Sodium (Pantoprazole Sodium 40 Mg/10 Ml Vial) 40 mg IVPUSH BID@0630,1630 [facility] Last Admin: 04/08/24 05:40 Dose: 40 mg Documented By: MARIE Sodium Chloride (0.9 % Sodium Chloride Flush 3 Ml Syringe) 3 ml IVFLUSH QSHIFT [facility] Last Admin: 04/08/24 05:41 Dose: 3 ml Documented By: MARIE Tamsulosin HCl (Tamsulosin Hcl 0.4 Mg Capsule) 0.4 mg PO DAILY [facility] Last Admin: 04/07/24 08:41 Dose: 0.4 mg Documented By: CASSI Labs 04/08/24 07:38 04/08/24 05:55 Labs: Laboratory Results - last 24 hr 04/08/24 04/08/24 05:55 07:38 MCV 86.5 MCH 30.8 MCHC 35.6 RDW 14.6 Plt Count 227 D MPV 10.3 Immature Gran % (Auto) 4.2 H Neut % (Auto) 72.6 Lymph % (Auto) 13.8 L [place] % (Auto) 7.0 Eos % (Auto) 2.0 Baso % (Auto) 0.4 Lymph # (Auto) 1.7 [place] # (Auto) 0.9 Eos # (Auto) 0.3 Baso # (Auto) 0.1 Abs Immat Gran (auto) 0.52 H Absolute Neuts (auto) 9.0 H Absolute Nucleated RBC 0.000 Nucleated RBC % (auto) 0.0 Anion Gap 12 Estim Creat Clear Calc 74.9 Estimated GFR > 60 Random Glucose 107 Calcium 8.1 L Phosphorus 2.1 L Magnesium 1.8 Microbiology Microbiology Results: Microbiology 04/02/24 11:00 Blood Culture - Final Blood - Venous No growth after 5 days. 04/02/24 10:14 Blood Culture - Final Blood - Venous No growth after 5 days. Assessment and Plan (1) Pyelonephritis due to Escherichia coli: Status: Acute (2) Acute hypoxic respiratory failure: Status: Acute (3) Septic shock: Status: Acute Plan 63-year-old male with pertinent history of hypothyroidism, hypertension, mood disorder, peripheral neuropathy who presents to the emergency department for evaluation of inability to urinate and blood in stools. 1.Septic shock due to acute pyelonephritis/E coli bacteremia sensitive to ceftriaxone -acute hypoxic respiratory failure, intubated 04/02, extubated 04/04.. Transfer out of ICU 04/06/2024 -ceftriaxone(8) -ID consult 2.Acute urinary retention in the setting of above and in a patient with BPH -continue nolasco x 3-4 weeks per Urology -continue flomax 3.Acute kidney injury (resolving in response to therapies) -urine output continues to improve... Creatinine moving back to baseline -follow renals/divalents 4.Acute metabolic acidosis due to above -resolved 5.Acute GI bleed with blood loss anemia -IV Protonix b.i.d. -follow daily CBC 6.Hypertension -acceptable control off therapies -and packed outpatient therapies when clinically appropriate Mechanical Full code Requires ongoing inpatient stay due to septic shock, EBEN, pyelonephritis requiring transfer to ICU, IV antibiotics, expert consultation and vasopressors for blood pressure support Quality Stroke Does the patient have a stroke diagnosis?: No VTE Prior VTE?: No VTE Risk Level:: Medical - moderate - high VTE Device Contraindication: N/A - Device Ordered VTE Drug Contraindication: N/A - Med Ordered
[2024-04-08] MEDS: Tamsulosin HCL 0.4 MG CAPSULE PO (11:56)
[2024-04-08] MEDS: Losartan Potassium 50 MG TABLET PO (11:56)
[2024-04-08] MEDS: cefTRIAXone sodium 2 GM in 0.9 % Sodium Chloride 50 ML IV (12:10)
--- NOTE | 2024-04-08 14:54 | P.CNID_ITS ---
History of Present Illness Data of Consult Service Date: 04/08/24 Requesting physician: Darius Mcarthur Primary Care Provider: Florecita Bettencourt MD HPI Reason for consult: sepsis,urinary retention He presents with inability to urinate for four days. He has vague abdominal discomfort as well. He has urine more than 500 cc in bladder. Review of Systems 2 Review of Systems: Yes all other systems are reviewed and are negative [facility] Past Medical History Medical History Legally blind Asthma HTN (hypertension) Family History Family history: reviewed and not pertinent Social History Social History Household Members: None Housing: Apartment Patient Tobacco Use Status: Current everyday Tobacco user Tobacco use type: Cigarette Cigarettes Per Day: 2 e-Cigarette/Vaping Use: Never Used service: No Current occupational status: disabled Cognitive needs: No Hearing needs: No Vision needs: 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) Meds Allergies Allergy/AdvReac Type Severity Reaction Status Date / Time No Known Allergies Allergy Verified 03/31/24 23:39 [No Known Allergies*] Active Medications: Current Medications Acetaminophen (Acetaminophen 325 Mg Tablet) 650 mg PO Q6H PRN PRN Reason: Pain, Mild (Pain Scale 1-3), fever or headache Last Admin: 04/07/24 04:18 Dose: 650 mg Heparin Sodium (Porcine) (Heparin Sodium,Porcine 5,000 Unit/Ml Vial) 5,000 unit SUBCUT Q8H [facility] Last Admin: 04/08/24 05:40 Dose: 5,000 unit Hydromorphone HCl (Hydromorphone Hcl 0.5 Mg/0.5 Ml Syringe) 0.5 mg IVPUSH Q2H PRN; Protocol PRN Reason: Pain, Moderate(Pain Scale 4-6) Last Admin: 04/06/24 05:09 Dose: 0.5 mg Ceftriaxone Sodium 2 gm/ (Sodium Chloride) 50 mls @ 100 mls/hr IV Q24H [facility] Last Infusion: 04/07/24 15:45 Dose: Infused Levothyroxine Sodium (Levothyroxine Sodium 112 Mcg Tablet) 112 mcg PO DAILY@0600 [facility] Last Admin: 04/08/24 05:40 Dose: 112 mcg Losartan Potassium (Losartan Potassium 50 Mg Tablet) 50 mg PO DAILY [facility]; Protocol Last Admin: 04/08/24 11:56 Dose: 50 mg Nicotine (Nicotine 7 Mg Patch.Td24) 7 mg TRANSDERMA DAILY [facility] Last Admin: 04/08/24 11:57 Dose: Not Given Ondansetron HCl (Ondansetron Hcl 4 Mg/2 Ml Vial) 4 mg IVPUSH Q8H PRN PRN Reason: Nausea and Vomiting Pantoprazole Sodium (Pantoprazole Sodium 40 Mg/10 Ml Vial) 40 mg IVPUSH BID@0630,1630 [facility] Last Admin: 04/08/24 05:40 Dose: 40 mg Sodium Chloride (0.9 % Sodium Chloride Flush 3 Ml Syringe) 3 ml IVFLUSH QSHIFT [facility] Last Admin: 04/08/24 12:09 Dose: 3 ml Tamsulosin HCl (Tamsulosin Hcl 0.4 Mg Capsule) 0.4 mg PO DAILY [facility] Last Admin: 04/08/24 11:56 Dose: 0.4 mg Home Medications ?Medication ?Instructions ?Recorded ?Confirmed ?Last Taken ?Type calcium carbonate 600 mg-vitamin 1 tab PO BID 04/01/24 04/01/24 Unknown History D3 10 mcg (400 unit) tablet ibuprofen 800 mg tablet 800 mg PO DAILY PRN pain 04/01/24 04/01/24 Unknown History levothyroxine 112 mcg tablet 112 mcg PO DAILY 04/01/24 04/01/24 Unknown History Physical Exam 2 Vital Signs: Vital Signs: Last Vital Signs Temp 98.5 F 04/08/24 10:57 Pulse 89 04/08/24 10:57 Resp 20 04/08/24 10:57 BP 164/77 H 04/08/24 10:57 Pulse Ox 97 04/08/24 10:57 O2 Del Method Nasal Cannula 04/08/24 10:57 O2 Flow Rate 3 04/08/24 10:57 FiO2 40 04/05/24 11:00 BMI result Body Mass Index 30.3 Const: General: cooperative HEENT: Head: Yes normal to inspection Face and sinus: Yes normal facial exam Mouth: Normal oral and palatal mucosa present Teeth and gingiva: d entition normal Eyes: General: appearance normal, both eyes and all related structures P upils: Equal, round and reactive pupils present Resp: Effort & Inspection: normal respiratory effort Cardio: Rate: regular rate Rhythm: regular rhythm GI: Other: mild abdominal discomfort Palpation (GI): Soft to palpation and nontender : General: Yes no CVA tenderness Back/Spine/Pelvis: Back: no CVA tenderness Skin: General skin exam: no rashes or lesions noted Neuro: General: moves all extremities Cranial nerves: Yes Equal, round and reactive pupils present Extrem: General: Yes normal to inspection Psych: Appearance: grossly normal Results Labs 04/08/24 07:38 04/08/24 05:55 Labs: Short CBC 04/08/24 Range/Units 07:38 WBC 12.3 H (4.8-10.8) X10*3/uL Hgb 10.3 L (14.0-18.0) g/dl Hct 28.9 L (42.0-52.0) % Plt Count 227 D (160-400) X10*3/uL BMP 04/08/24 05:55 Sodium 142 Potassium 3.1 L Chloride 108 Carbon Dioxide 25 BUN 24 H Creatinine 1.03 Calcium 8.1 L Microbiology Microbiology Results: Microbiology 04/02/24 11:00 Blood - Venous Blood Culture - Final No growth after 5 days. 04/02/24 10:14 Blood - Venous Blood Culture - Final No growth after 5 days. 04/02/24 08:08 Aspirate - Induced Gram Stain - Final 04/02/24 08:08 Aspirate - Induced Sputum Culture - Final 04/01/24 00:50 Blood - Venous Blood Culture - Final Escherichia coli 04/01/24 00:49 Blood - Venous Blood Culture - Final Escherichia coli Coag negative Staphylococcus 04/01/24 Unknown Urine Catheterized - Estevez Catheter Urine Culture - Final Escherichia coli Assessment and Plan (1) Acute hypoxic respiratory failure: Status: Acute (2) Pyelonephritis due to Escherichia coli: Status: Acute (3) Urinary retention with incomplete bladder emptying: Status: Acute (4) Septic shock: Status: Acute Plan He is day 8 of Ceftriaxone He has no fever and WBC normalizing. He has BPH and urinary retention apparently. It is not clear whether he has prostatis. He has bactermia however. Would switch to oral cephalosporin standard dose since RF resolved (e.g Ceftin 500 mg bid) and give 14-21 day total antibiotic Follow up Urology outpatient.
[2024-04-08 15:16] VITALS: BP 159/81; PULSE 115; RESP 20; TEMP 37.2; O2SAT 96
[2024-04-08 20:00] VITALS: BP 153/72; PULSE 93; RESP 17; TEMP 37.2; O2SAT 97
[2024-04-09] VITALS (8 sets, daily range): BP systolic 138–163; BP diastolic 68–81; PULSE 80–100; RESP 18–20; TEMP 36.1–37.2; O2SAT 98–99; BMI 29.2
[2024-04-09] MEDS: Levothyroxine Sodium 112 MCG TABLET PO (06:10)
[2024-04-09] MEDS: Pantoprazole Sodium 40 MG/10 ML VIAL IVPUSH (06:11)
[2024-04-09] MEDS: Heparin Sodium,Porcine 5,000 UNIT/ML VIAL 5000 UNIT SUBCUT (06:11)
[2024-04-09 07:33] LABS: MANUAL DIFF FLAG NO
[2024-04-09 07:55] LABS: Basophils Absolute Auto 0.1 X10*3/uL (0.0-0.2); Basophils Percent Auto 0.5 % (0-2); Eosinophils Absolute Auto 0.3 X10*3/uL (0.0-0.4); Eosinophils Percent Auto 2.3 % (0-4); Hematocrit 25.8 % (42.0-52.0); Hemoglobin 8.9 g/dl (14.0-18.0); Imm Gran Abs Auto 0.52 X10*3/uL (0.00-0.03); Lymphocytes Absolute Auto 1.8 X10*3/uL (1.2-4.9); Lymphocytes Percent Auto 13.6 % (20-40); Mean Corpuscular HGB Conc 34.5 g/dl (31.0-36.0); Mean Corpuscular Hemoglobin 30.3 pg (27.0-33.0); Mean Corpuscular Volume 87.8 fL (80.0-98.0); Monocytes Absolute Auto 0.9 X10*3/uL (0.1-1.2); Neutrophils Absolute Auto 9.4 x10*3/uL (2.0-8.3); Neutrophils Percent Auto 72.6 % (45-73); Platelet Count 291 X10*3/uL (160-400); Red Blood Count 2.94 X10*6/uL (4.60-5.80); White Blood Count 12.9 X10*3/uL (4.8-10.8)
[2024-04-09 08:06] LABS: Anion Gap 12 (12-20); Blood Urea Nitrogen 21 mg/dL (9-16); Calcium 8.1 mg/dL (8.4-10.2); Carbon Dioxide 27 mmol/L (22-29); Chloride 107 mmol/L (96-108); Creatinine Clr Calc Pharmacy 71.4; Estimated Glomerular Filt Rate > 60; Glucose Random 98 mg/dL (60-115); Magnesium 1.7 mg/dL (1.6-2.6); Phosphorus 2.1 mg/dL (2.7-4.5); Potassium 2.9 mmol/L (3.3-5.1); Sodium 143 mmol/L (135-145)
[2024-04-09] MEDS: Potassium Chloride/H20 10 MEQ/100 ML PIGGYBACK 100 MEQ IV ×2 (08:16→09:23)
[2024-04-09] MEDS: Potassium Chloride Packet 20 MEQ PACKET 40 MEQ PO (08:17)
[2024-04-09] MEDS: Tamsulosin HCL 0.4 MG CAPSULE PO (08:18)
[2024-04-09] MEDS: 0.9 % Sodium Chloride Flush 3 ML SYRINGE IVFLUSH ×2 (08:18→15:38)
[2024-04-09] MEDS: Losartan Potassium 50 MG TABLET PO (08:18)
[2024-04-09 08:25] LABS: Alanine Aminotransferase 63 U/L (0-40); Albumin Level 3.1 g/dL (3.5-5.0); Alkaline Phosphatase 201 U/L (39-117); Aspartate Amino Transferase 55 U/L (5-37); Bilirubin Direct 0.6 mg/dL (0.0-0.5); Bilirubin Total 0.9 mg/dL (0.0-1.0); Total Protein 5.7 g/dL (6.5-8.0)
--- NOTE | 2024-04-09 08:50 | MHC.CM.PN ---
PT states that Patient would likely benefit from STR, but Patient is refusing (will accept VNA). CM will follow.
--- NOTE | 2024-04-09 10:12 | MHC.CM.PN ---
Per ROUNDS discussion, Patient has pending labs and K is low. Patient is not yet ready for dc; Patient is refusing PT's recommendation for STR. CM will follow.
--- NOTE | 2024-04-09 11:16 | P.PNIM_ITS ---
Subjective Subjective Date of Service: 04/09/24 Interval History: Seen and examined this morning Follow-up for septic shock due to pyelonephritis/E coli bacteremia No overnight events Denies cough, shortness of breath Review of Systems Review of Systems: Yes all other systems are reviewed and are negative Constitutional Constitutional: Denies chills and Denies fever(s) Cardiovascular Cardiovascular: Denies chest pain Physical Exam 2 Vital Signs: Vital Signs: Last Vital Signs Temp 98.4 F 04/09/24 07:24 Pulse 85 04/09/24 08:35 Resp 20 04/09/24 07:24 BP 155/72 H 04/09/24 08:35 Pulse Ox 98 04/09/24 08:35 O2 Del Method Nasal Cannula 04/09/24 07:24 O2 Flow Rate 3 04/09/24 07:24 FiO2 40 04/05/24 11:00 BMI result Body Mass Index 29.2 Const: General: comfortable, no acute distress, alert and awake Nutritional Appearance: average body habitus Eyes: Other: blind Resp: Effort & Inspection: normal respiratory effort, able to speak in complete sentences, no respiratory distress and no use of accessory muscles Cardio: Rate: regular rate GI: Inspection: No distended Palpation (GI): Soft to palpation : Other: nolasco in place - clear urine Neuro: General: moves all extremities Extrem: General: Yes no pedal edema Objective Data Active Medications Acetaminophen (Acetaminophen 325 Mg Tablet) 650 mg PO Q6H PRN PRN Reason: Pain, Mild (Pain Scale 1-3), fever or headache Last Admin: 04/07/24 04:18 Dose: 650 mg Documented By: GALINA Heparin Sodium (Porcine) (Heparin Sodium,Porcine 5,000 Unit/Ml Vial) 5,000 unit SUBCUT Q8H [facility] Last Admin: 04/09/24 06:11 Dose: 5,000 unit Documented By: MARIE Hydromorphone HCl (Hydromorphone Hcl 0.5 Mg/0.5 Ml Syringe) 0.5 mg IVPUSH Q2H PRN; Protocol PRN Reason: Pain, Moderate(Pain Scale 4-6) Last Admin: 04/06/24 05:09 Dose: 0.5 mg Documented By: JOSH Ceftriaxone Sodium 2 gm/ (Sodium Chloride) 50 mls @ 100 mls/hr IV Q24H [facility] Last Infusion: 04/08/24 15:08 Dose: Infused Documented By: CASSI Levothyroxine Sodium (Levothyroxine Sodium 112 Mcg Tablet) 112 mcg PO DAILY@0600 [facility] Last Admin: 04/09/24 06:10 Dose: 112 mcg Documented By: MARIE Losartan Potassium (Losartan Potassium 50 Mg Tablet) 50 mg PO DAILY [facility]; Protocol Last Admin: 04/09/24 08:18 Dose: 50 mg Documented By: EMPERATRIZ Nicotine (Nicotine 7 Mg Patch.Td24) 7 mg TRANSDERMA DAILY [facility] Last Admin: 04/09/24 08:18 Dose: Not Given Documented By: EMPERATRIZ Non-Admin Reason: Patient Refused Ondansetron HCl (Ondansetron Hcl 4 Mg/2 Ml Vial) 4 mg IVPUSH Q8H PRN PRN Reason: Nausea and Vomiting Pantoprazole Sodium (Pantoprazole Sodium 40 Mg/10 Ml Vial) 40 mg IVPUSH BID@0630,1630 [facility] Last Admin: 04/09/24 06:11 Dose: 40 mg Documented By: MARIE Sodium Chloride (0.9 % Sodium Chloride Flush 3 Ml Syringe) 3 ml IVFLUSH QSHIFT [facility] Last Admin: 04/09/24 08:18 Dose: 3 ml Documented By: EMPERATRIZ Tamsulosin HCl (Tamsulosin Hcl 0.4 Mg Capsule) 0.4 mg PO DAILY [facility] Last Admin: 04/09/24 08:18 Dose: 0.4 mg Documented By: EMPERATRIZ Labs 04/09/24 05:42 04/09/24 05:42 Labs: Laboratory Results - last 24 hr 04/09/24 05:42 MCV 87.8 MCH 30.3 MCHC 34.5 RDW 15.0 Plt Count 291 D MPV 11.0 Immature Gran % (Auto) 4.0 H Neut % (Auto) 72.6 Lymph % (Auto) 13.6 L [place] % (Auto) 7.0 Eos % (Auto) 2.3 Baso % (Auto) 0.5 Lymph # (Auto) 1.8 [place] # (Auto) 0.9 Eos # (Auto) 0.3 Baso # (Auto) 0.1 Abs Immat Gran (auto) 0.52 H Absolute Neuts (auto) 9.4 H Absolute Nucleated RBC 0.000 Nucleated RBC % (auto) 0.0 Anion Gap 12 Estim Creat Clear Calc 71.4 Estimated GFR > 60 Random Glucose 98 Calcium 8.1 L Phosphorus 2.1 L Magnesium 1.7 Total Bilirubin 0.9 Direct Bilirubin 0.6 H AST 55 H ALT 63 H Alkaline Phosphatase 201 H Total Protein 5.7 L Albumin 3.1 L Assessment and Plan (1) Pyelonephritis due to Escherichia coli: Status: Acute (2) Acute hypoxic respiratory failure: Status: Acute Plan 63-year-old male with pertinent history of hypothyroidism, hypertension, mood disorder, peripheral neuropathy who presents to the emergency department for evaluation of inability to urinate and blood in stools. Septic shock due to acute pyelonephritis/E coli bacteremia acute hypoxic respiratory failure duet to septic shock, intubated 04/02, extubated 04/04. Transfered out of ICU 04/06/2024; wean supplemental oxygen as tolerated cultures sensitive to ceftriaxone -ceftriaxone day 6 -ID consult->ceftin 500 bid x 21 days Acute urinary retention due to BPH -continue nolasco x 3-4 weeks per Urology -continue flomax, start finasteride as per urology recommendation Acute kidney injury (resolving in response to therapies) resolved Hypokalemia Check magnesium will replace potassium follow BMP Acute metabolic acidosis due to above resolved Acute GI bleed with blood loss anemia will change Protonix to oral omeprazole Hold subcu heparin Seen by GI at beginning of admission, no indication for endoscopy at that time H/H downtrending slightly but above transfusion threshold -follow daily CBC, if continues to trend down will reconsult GI Hypertension Continue losartan, hold Aldactone dvt ppx - hold heparin as CBC trending down Full code Disposition-seen by Physical therapy, recommended short-term rehab, patient declines and prefers to return home with services Requires ongoing inpatient stay due to septic shock, EBEN, pyelonephritis IV antibiotics, close monitoring of electrolytes and CBC Quality Stroke Does the patient have a stroke diagnosis?: No VTE Prior VTE?: No VTE Risk Level:: Medical - moderate - high VTE Device Contraindication: N/A - Device Ordered VTE Drug Contraindication: N/A - Med Ordered
--- NOTE | 2024-04-09 11:50 | MHC.CM.PN ---
CM met with Patient and his upstairs Neighbor (who will be assisting Patient when he dc's to home); they are asking how Patient can get more SOILS TECHNICIAN hours. JESUS spoke with Isidra, from [facility] @ [phone], who stated that they are just waiting for Patient to dc to home, before they can evaluate for more hours. CM will follow.
[2024-04-09] MEDS: Magnesium Sulfate/H2O 2 GM/50 ML PIGGYBACK IV (11:56)
[2024-04-09] MEDS: cefTRIAXone sodium 2 GM in 0.9 % Sodium Chloride 50 ML IV (11:56)
[2024-04-09] MEDS: Finasteride 5 MG TABLET PO (11:57)
--- NOTE | 2024-04-09 13:18 | MHC.SL.SWA ---
Speech Pathologist Impression: Risk of Aspiration Due to: Hx of Recent Extubation Dysphasia Diet Status: INTERACTIVE DEVELOPER recommends he continue at this time on Chopped/Advanced with Thin Liquids, pills whole with liquid for ease of access, and continued 1-1 support at all meals (secondary to patient's blindness) Liquid Consistency and Strategies for Safe Swallow: Liquid Intake Recommendation: Thin Liquid Intake Strategies: Small Sips Solid Food Consistency: Dietary Recommendations: Chopped/Advanced (NDD3) Additional Modifications to Solid Foods: Chopped/Advanced recommended as food is pre-cut, decreasing risk of patient accessing too large pieces of food/choking given blindness. Due to blindness, patient will require assistance at all meals. Oral Medication Intake: Whole with Liquid Please contact the pharmacy regarding appropriate crushable or liquid drug formulations that are available whenever modified delivery is recommended. Compensatory Strategies and Precautions to be Taken for Safe Swallow: Sitting Upright (90 deg) Small Bites and Sips Oral Check Supervision While Eating and Drinking for Safe Swallow: Total Assistance (1:1) Foods to Avoid: Too large pieces of food. Swallowing Recommended Treatments: Compens. Strategy Educat. Recommendation for Speech: Inpatient Speech Therapy Comment: Patient seen at lunch for toleration of diet, however, again today (as yesterday) patient reported he was not hungry and didn't want to eat. INTERACTIVE DEVELOPER remained to talk further with patient about lack of appetite, which revealed a few concerns. Patient reported that it was not only an appetite issue but also the type of food, wanting and reporting missing the typical foods of home (e.g. rice and beans, pork/pernil). However patient also stated he had concerns about digestion and it coming out the other end, which he is still very guarded/anxious about. Given this pattern/conversation it was recommended to him and to GSR to take the time to review options on menu with patient (who is blind) to identify foods he might be more motivated to eat. He would also benefit from a nutritions consult if none is in place, given poor PO intake. INTERACTIVE DEVELOPER recommends he continue at this time on Chopped/Advanced with Thin Liquids, pills whole with liquid for ease of access, and continued 1-1 support at all meals. Frequency/Duration: Date Range for Service Req: Timeline to reassess: Transportation Superintendent Clinican/Clinical Fellow: No Supervisory Statement: I have reviewed and agree with the student/clinical fellow's documentation: N/A Speech Language Pathologist: Genna Woods M.A., CCC-INTERACTIVE DEVELOPER
[2024-04-09] MEDS: Gabapentin 100 MG CAPSULE PO ×2 (15:38→20:39)
[2024-04-09] MEDS: HYDROmorphone HCl 0.5 MG/0.5 ML SYRINGE IVPUSH (23:27)
[2024-04-10] MEDS: Omeprazole 40 MG CAPSULE.DR PO (05:32)
[2024-04-10] MEDS: Levothyroxine Sodium 112 MCG TABLET PO (05:32)
[2024-04-10] MEDS: 0.9 % Sodium Chloride Flush 3 ML SYRINGE IVFLUSH ×2 (05:32→08:10)
[2024-04-10 05:35] VITALS: BMI 30.3
[2024-04-10 06:04] VITALS: BP 148/70; PULSE 93; RESP 20; TEMP 37.1; O2SAT 99
[2024-04-10 06:24] LABS: MANUAL DIFF FLAG NO
[2024-04-10 06:41] LABS: Basophils Absolute Auto 0.1 X10*3/uL (0.0-0.2); Basophils Percent Auto 0.7 % (0-2); Eosinophils Absolute Auto 0.3 X10*3/uL (0.0-0.4); Eosinophils Percent Auto 2.6 % (0-4); Hematocrit 26.6 % (42.0-52.0); Hemoglobin 9.1 g/dl (14.0-18.0); Imm Gran Pct Auto 3.1 % (0.0-0.4); Lymphocytes Absolute Auto 1.6 X10*3/uL (1.2-4.9); Lymphocytes Percent Auto 12.2 % (20-40); Mean Corpuscular HGB Conc 34.2 g/dl (31.0-36.0); Mean Corpuscular Hemoglobin 30.8 pg (27.0-33.0); Mean Corpuscular Volume 90.2 fL (80.0-98.0); Mean Platelet Volume 10.6 fL (9.4-12.4); Monocytes Absolute Auto 0.9 X10*3/uL (0.1-1.2); Monocytes Percent Auto 7.1 % (2-11); Neutrophils Absolute Auto 9.5 x10*3/uL (2.0-8.3); Neutrophils Percent Auto 74.3 % (45-73); Platelet Count 398 X10*3/uL (160-400); Red Blood Count 2.95 X10*6/uL (4.60-5.80); Red Cell Distribution Width 15.6 % (11.0-16.0); White Blood Count 12.8 X10*3/uL (4.8-10.8)
[2024-04-10 06:52] LABS: Anion Gap 12 (12-20); Blood Urea Nitrogen 19 mg/dL (9-16); Calcium 8.2 mg/dL (8.4-10.2); Carbon Dioxide 26 mmol/L (22-29); Chloride 109 mmol/L (96-108); Creatinine Clr Calc Pharmacy 77.9; Estimated Glomerular Filt Rate > 60; Glucose Random 85 mg/dL (60-115); Magnesium 1.9 mg/dL (1.6-2.6); Phosphorus 2.3 mg/dL (2.7-4.5); Potassium 3.5 mmol/L (3.3-5.1); Sodium 143 mmol/L (135-145)
[2024-04-10 07:27] VITALS: BP 157/78; PULSE 95; RESP 20; TEMP 36.9; O2SAT 96
[2024-04-10] MEDS: Gabapentin 100 MG CAPSULE PO (08:09)
[2024-04-10] MEDS: Tamsulosin HCL 0.4 MG CAPSULE PO (08:09)
[2024-04-10] MEDS: Montelukast Sodium 10 MG TABLET PO (08:09)
[2024-04-10] MEDS: Finasteride 5 MG TABLET PO (08:09)
[2024-04-10 08:10] VITALS: BP 157/78
[2024-04-10] MEDS: Losartan Potassium 50 MG TABLET PO (08:10)
[2024-04-10 11:01] VITALS: BP 161/90; PULSE 105; RESP 20; TEMP 37.1; O2SAT 99
--- NOTE | 2024-04-10 11:17 | MHC.SL.SWA ---
Speech Pathologist Impression: Risk of Aspiration Risk of Aspiration Due to: Hx of Recent Extubation Dysphasia Diet Status: MANAGER OF GLOBAL recommends he continue at this time on Chopped/Advanced for ease of access with Thin Liquids, pills whole with liquid, and continued 1-1 support at all meals (secondary to patient's blindness) Liquid Consistency and Strategies for Safe Swallow: Liquid Intake Recommendation: Thin Liquid Intake Strategies: Small Sips Solid Food Consistency: Dietary Recommendations: Chopped/Advanced (NDD3) Additional Modifications to Solid Foods: Please re-refer with any changes or further concern. Oral Medication Intake: Whole with Liquid Please contact the pharmacy regarding appropriate crushable or liquid drug formulations that are available whenever modified delivery is recommended. Compensatory Strategies and Precautions to be Taken for Safe Swallow: Sitting Upright (90 deg) Small Bites and Sips Oral Check Supervision While Eating and Drinking for Safe Swallow: Total Assistance (1:1) Foods to Avoid: Too large pieces of food. Swallowing Recommended Treatments: Compens. Strategy Educat. Recommendation for Speech: D/C Athletic Coordinator Clinican/Clinical Fellow: No Supervisory Statement: I have reviewed and agree with the student/clinical fellow's documentation: N/A Speech Language Pathologist: Nadira Mahan M.A., CCC-MANAGER OF GLOBAL
[2024-04-10] MEDS: cefTRIAXone sodium 2 GM in 0.9 % Sodium Chloride 50 ML IV (11:23)
[2024-04-10] MEDS: Trolamine Salicylate 10 % Cream 85 GM TUBE 1 APPL TOPICAL (11:23)
--- NOTE | 2024-04-10 12:18 | P.DS_ITS ---
DS: Providers Provider Date of Service: 04/10/24 Date of admission: 04/01/24 03:28 Date of discharge: 04/10/24 Primary care physician: Florecita Bettencourt MD Consults: 04/01/24 03:27 Consult to Gastroenterology Routine Consulting Provider: Tarun Padilla Reason for consultation: GI bleed Consult to Nephrology Routine Consulting Provider: [facility] Reason for consultation: EBEN Consult to Urology Routine Consulting Provider: [facility] Reason for consultation: urinary retention 04/08/24 11:18 Consult to Infectious Diseases Routine Consulting Provider: [facility] Reason for consultation: EColi bacteremia Has provider been notified: Yes Attending physician on discharge: George Pompa Discharging clinician: Kay Galeas DS: Diagnosis Discharge Diagnosis (1) Pyelonephritis due to Escherichia coli: Status: Acute (2) Acute hypoxic respiratory failure: Status: Acute (3) Urinary retention with incomplete bladder emptying: Status: Acute (4) Septic shock: Status: Acute DS: Summary Hospital Course Hospital Course: From H&P on the day of admission This is a 63-year-old male with pertinent history of hypothyroidism, hypertension, mood disorder, peripheral neuropathy who presents to the emergency department for evaluation of inability to urinate and blood in stools. Patient has been having generalized abdominal discomfort and initially had urinary hesitancy but was unable to urinate for the last 3 days. Has associated nausea and chills. Patient's son also noticed blood in stools on the day of presentation. He has been having diarrhea for the last 3 days. No vomiting or fever. No chest discomfort, palpitations, shortness of breath. In the emergency department, bladder scan with mood than 500 cc of urine and more than 1000 cc urine output upon insertion of Nolasco. Urine concerning for UTI. White count 34.3 and lactic acidosis present Septic shock due to acute pyelonephritis/E coli bacteremia. Initially admitted to the medical service but due to persistent hypotension was transferred to the ICU for vasopressor support. Also went into respiratory failure requiring intubation. acute hypoxic respiratory failure due to septic shock, intubated 04/02, extubated 04/04. Transferred out of ICU 04/06/2024. cultures sensitive to ceftriaxone. Seen by ID who recommended ceftin 500 bid x 21 days. He was able to be weaned off of supplemental oxygen and is currently able to ambulate without any supplemental oxygen. Denies any respiratory symptoms. Acute urinary retention due to BPH seen by urology, nolasco placed. recommend to continue nolasco x 3-4 weeks. continue flomax, start finasteride as per urology recommendation Acute kidney injury (resolving in response to therapies) resolved Hypokalemia resolved with replacement Acute metabolic acidosis due to above resolved Acute GI bleed with blood loss anemia will change Protonix to oral omeprazole Seen by GI no indication for endoscopy. H/H stable recommend outpatient follow up He was evaluated by Physical therapy who recommended short-term rehab. Patient declined and has elected to return home with home services. Time Attestation Discharge Coordination Time (in mins): 40 Quality: Safe Use of Opioids Does Pt have an Active Cancer Diagnosis on the Problem List?: No Quality: Stroke Does the patient have a stroke diagnosis?: No Physical Exam Vital Signs: Vital Signs: Last Vital Signs Temp 98.8 F 04/10/24 11:01 Pulse 105 H 04/10/24 11:01 Resp 20 04/10/24 11:01 BP 161/90 H 04/10/24 11:01 Pulse Ox 99 04/10/24 11:01 O2 Del Method Nasal Cannula 04/10/24 11:01 O2 Flow Rate 1 04/10/24 11:01 FiO2 40 04/05/24 11:00 BMI result Body Mass Index 30.3 Const: General: comfortable, no acute distress, alert and awake Nutritional Appearance: average body habitus Eyes: Other: blind Resp: Effort & Inspection: normal respiratory effort, able to speak in complete sentences, no respiratory distress and no use of accessory muscles Cardio: Rate: regular rate GI: Inspection: No distended Palpation (GI): Soft to palpation : Other: nolasco in place - clear urine Neuro: General: moves all extremities Extrem: General: Yes no pedal edema DS: Data Data Completed and Pending Labs on day of discharge: Laboratory Results - last 24 hr 04/10/24 05:53 WBC 12.8 H RBC 2.95 L Hgb 9.1 L Hct 26.6 L MCV 90.2 MCH 30.8 MCHC 34.2 RDW 15.6 Plt Count 398 D MPV 10.6 Immature Gran % (Auto) 3.1 H Neut % (Auto) 74.3 H Lymph % (Auto) 12.2 L [place] % (Auto) 7.1 Eos % (Auto) 2.6 Baso % (Auto) 0.7 Lymph # (Auto) 1.6 [place] # (Auto) 0.9 Eos # (Auto) 0.3 Baso # (Auto) 0.1 Abs Immat Gran (auto) 0.40 H Absolute Neuts (auto) 9.5 H Absolute Nucleated RBC 0.000 Nucleated RBC % (auto) 0.0 Sodium 143 Potassium 3.5 D Chloride 109 H Carbon Dioxide 26 Anion Gap 12 BUN 19 H Creatinine 0.98 Estim Creat Clear Calc 77.9 Estimated GFR > 60 Random Glucose 85 Calcium 8.2 L Phosphorus 2.3 L Magnesium 1.9 Discharge Plan Discharge Anticipated Discharge Date/Time: 04/10/24 12:41 Patient Disposition: Home Health Service Discharge Diagnosis: septic shock due to pyelonephritis bacteremia Obstructive uropathy eben respiratory failure Referrals: Herbert Powers MD [Physician] - 1 Week Physician,Rodney Peña [Physician] - 1 Week Discharge Medications: New tamsulosin 0.4 mg Capsule 0.4 mg PO DAILY 90 Days Qty: 90 0RF omeprazole 40 mg Capsule,Delayed Release(Dr/Ec) 40 mg PO DAILY@0630 90 Days Qty: 90 0RF finasteride 5 mg Tablet 5 mg PO DAILY 90 Days Qty: 90 0RF cefuroxime axetil 500 mg tablet 500 mg PO Q12H 14 Days Qty: 28 0RF Continued montelukast 10 mg tablet 10 mg PO DAILY Qty: 90 2RF losartan 50 mg tablet 50 mg PO DAILY Qty: 90 2RF spironolactone 50 mg tablet 50 mg PO DAILY 90 Days Qty: 90 1RF cholecalciferol (vitamin D3) 50 mcg (2,000 unit) capsule 50 mcg PO DAILY 90 Days Qty: 90 3RF levothyroxine 112 mcg tablet 112 mcg PO DAILY calcium carbonate-vitamin D3 600 mg-10 mcg (400 unit) tablet 1 tab PO BID gabapentin 300 mg capsule 300 mg PO TID Held meloxicam 15 mg tablet 15 mg PO DAILY Qty: 30 2RF Hold Instructions: hold until follow up with PCP and repeat CBC Discontinued ibuprofen 800 mg tablet 800 mg PO DAILY PRN (Reason: pain) Discharge Orders: Discharge Order (Routine); Ordered 04/10/24 Ordered By: Kay Galeas Activity on Discharge: As tolerated Stand Alone Forms: Patient Portal Discharge page Print Language: Tamazight Other Ambulatory Orders: Complete Blood Count no Diff (Routine) Timeframe: 1 Week Facility: [facility] - Location: Laboratory Ordered By: Kay Galeas Care Plan Goals: See below Health Concerns: Septic shock due to acute pyelonephritis E coli bacteremia Obstructive uropathy EBEN Acute respiratory failure with hypoxia Anemia Plan of Treatment: Call to schedule follow-up appointment with your PCP Call to schedule follow-up appointment with urologist Start taking Flomax and Proscar as prescribed to assist with enlarged prostate Do not take NSAIDs including meloxicam, ibuprofen until repeat CBC/follow-up with PCP Repeat CBC in 1 week Complete course of antibiotics as prescribed for bacteremia/pyelonephritis Assessment: See discharge summary
--- NOTE | 2024-04-10 12:45 | W.MHC.F2F ---
Service Date Service Date: 04/10/24 Encounter Date of encounter: 04/10/24 Reasons for Services Signs and symptoms assessed: needs retirement for med reconciliation/medication management/education & management regarding new Nolasco catheter; PT for weakness due to hospital stay, therapeutic exercises Reason for retirement: medication management and other (nolasco catheter care ) Reason for occupational therapy: home safety and mobility and therapeutic exercises Overseeing Care: Florecita Bettencourt Homebound: Leaving the home is medically contraindicated at this time without the asist of a device and/or another person due th the listed conditions above and below. Reason homebound: weakness related to hospital stay Certification: Based on the above findings, I certify that this patient is confined to the home and needs intermittent retirement care, physical therapy and/or speech therapy, or continues to need occupational therapy. The patient is under my care, and I have initiated the establishment of the plan of care. The patient will be followed by a physician who will periodically review the plan of care. Time Spent With Patient Time: Total time managing care of this patient today ____ minutes.
--- NOTE | 2024-04-10 12:56 | MHC.CM.PN ---
Second IMM given 04/10. Pt is medically cleared for discharge home with new [facility] services. Pt has arranged his own transport home.
[2024-04-10] MEDS: Gabapentin 100 MG CAPSULE 200 MG PO (13:59)
== END 2024-04-10 16:04 | disposition home health service (06) | DRG 871 ==
LOC: HO.ED 04-01 01:21 → HO.EDOVER 04-01 03:33 → HO.IMC 04-01 08:49 → HO.ICU 04-01 13:22 → HO.IMC 04-06 20:46
PROVIDERS: Emergency Medicine; Internal Medicine; Internal Medicine Critical Care Medicine; Nurse Practitioner Family; Physician Assistant; Physician Assistant Medical; Admitting Provider Student in an Organized Health Care Education/Training Program; Emergency Provider Internal Medicine; PCP Internal Medicine; Visit Provider Physician Assistant Medical
DX: A41.9 Sepsis, unspecified organism (principal); G93.41 Metabolic encephalopathy; J18.9 Pneumonia, unspecified organism; N17.0 Acute kidney failure with tubular necrosis; R65.21 Severe sepsis with septic shock; J80 Acute respiratory distress syndrome; F33.9 Major depressive disorder, recurrent, unspecified; E87.1 Hypo-osmolality and hyponatremia; I47.10 Supraventricular tachycardia, unspecified; N13.6 Pyonephrosis; K92.2 Gastrointestinal hemorrhage, unspecified; I10 Essential (primary) hypertension; E87.6 Hypokalemia; E03.9 Hypothyroidism, unspecified; D50.0 Iron deficiency anemia secondary to blood loss (chronic); G62.9 Polyneuropathy, unspecified; B96.20 Unspecified Escherichia coli [E. coli] as the cause of diseases classified elsewhere; N40.1 Benign prostatic hyperplasia with lower urinary tract symptoms; D69.6 Thrombocytopenia, unspecified; R33.8 Other retention of urine; H54.8 Legal blindness, as defined in USA; F17.210 Nicotine dependence, cigarettes, uncomplicated; Z71.6 Tobacco abuse counseling; Z20.822 Contact with and (suspected) exposure to COVID-19; Z79.890 Hormone replacement therapy; Z79.899 Other long term (current) drug therapy
CPT/HCPCS: 36415; 36600; 71045; 74176; 80048; 80053; 80076; 80202; 81001; 82040; 82728; 82803; 82947; 83010; 83540; 83605; 83615; 83735; 83880; 84100; 84443; 84484; 85007; 85025; 85027; 85045; 87040; 87070; 87077; 87086; 87088; 87147; 87186; 87205; 87635; 87640; 87641; 92526; 92610; 93005; 93306; 94002; 94003; 94640; 94799; 97162; 99285; C1758; J0131; J0651; J0696; J1170; J1644; J1720; J1940; J1956; J2175; J2405; J2470; J2543; J2704; J3010; J3370; J3475; J3480; J7120; P9047

== ENCOUNTER 2024-04-01 03:28 | Outpatient (BNV) | payer MEDICARE, MEDICAID, SELFPAY | END 2024-04-02 07:00 | PROVIDERS: Admitting Provider Student in an Organized Health Care Education/Training Program; Emergency Provider Internal Medicine; Visit Provider Internal Medicine Cardiovascular Disease | DX: I51.89 Other ill-defined heart diseases (principal) | CPT/HCPCS: 93306 ==

== ENCOUNTER → 2024-04-01 03:28 | Outpatient (BNV) | payer MEDICARE, MEDICAID, SELFPAY | PROVIDERS: Admitting Provider Student in an Organized Health Care Education/Training Program; Emergency Provider Internal Medicine; Visit Provider Internal Medicine | DX: A41.9 Sepsis, unspecified organism (principal); N39.0 Urinary tract infection, site not specified; D64.9 Anemia, unspecified | CPT/HCPCS: 99223 ==

== ENCOUNTER → 2024-04-01 03:28 | Outpatient (BNV) | payer MEDICARE, MEDICAID, SELFPAY | PROVIDERS: Admitting Provider Student in an Organized Health Care Education/Training Program; Emergency Provider Internal Medicine; Visit Provider Internal Medicine Critical Care Medicine | DX: A41.9 Sepsis, unspecified organism (principal); R65.21 Severe sepsis with septic shock; N10 Acute pyelonephritis; B96.20 Unspecified Escherichia coli [E. coli] as the cause of diseases classified elsewhere; J96.01 Acute respiratory failure with hypoxia | CPT/HCPCS: 31500; 99222; 99291; 99292 ==

== ENCOUNTER → 2024-04-01 03:28 | Outpatient (BNV) | payer MEDICARE, MEDICAID, SELFPAY | PROVIDERS: Admitting Provider Student in an Organized Health Care Education/Training Program; Emergency Provider Internal Medicine; Visit Provider Internal Medicine Hypertension Specialist | DX: A41.9 Sepsis, unspecified organism (principal); R65.21 Severe sepsis with septic shock; N17.0 Acute kidney failure with tubular necrosis | CPT/HCPCS: 99223; 99231; 99232; 99499 ==

== ENCOUNTER → 2024-04-01 03:28 | Outpatient (BNV) | payer MEDICARE, MEDICAID, SELFPAY | PROVIDERS: Admitting Provider Student in an Organized Health Care Education/Training Program; Emergency Provider Internal Medicine; Visit Provider Urology | DX: N17.9 Acute kidney failure, unspecified (principal); N39.0 Urinary tract infection, site not specified; R33.9 Retention of urine, unspecified | CPT/HCPCS: 99222 ==

== ENCOUNTER → 2024-04-01 03:28 | Outpatient (BNV) | payer MEDICARE, MEDICAID, SELFPAY | PROVIDERS: Admitting Provider Student in an Organized Health Care Education/Training Program; Emergency Provider Internal Medicine; Visit Provider Student in an Organized Health Care Education/Training Program | DX: A41.9 Sepsis, unspecified organism (principal); R65.21 Severe sepsis with septic shock; N10 Acute pyelonephritis; J96.01 Acute respiratory failure with hypoxia | CPT/HCPCS: 99223; 99232; 99239; 99499; G0180 ==

== ENCOUNTER → 2024-04-01 03:28 | Outpatient (BNV) | payer MEDICARE, MEDICAID, SELFPAY | PROVIDERS: Admitting Provider Student in an Organized Health Care Education/Training Program; Emergency Provider Internal Medicine; PCP Internal Medicine; Visit Provider Internal Medicine | DX: J96.01 Acute respiratory failure with hypoxia (principal); N12 Tubulo-interstitial nephritis, not specified as acute or chronic; B96.20 Unspecified Escherichia coli [E. coli] as the cause of diseases classified elsewhere; R33.9 Retention of urine, unspecified; A41.9 Sepsis, unspecified organism; R65.21 Severe sepsis with septic shock | CPT/HCPCS: 99222 ==

== ENCOUNTER 2024-04-16 08:22 | Outpatient (AMB) | payer MEDICARE, MEDICAID, SELFPAY ==
--- NOTE | 2024-04-16 08:45 | MHC.PC.OV ---
Intake Visit Reasons: HDF ~ Post hospital discharge FU Allergies No Known Allergies [No Known Allergies*] Allergy (Verified 04/16/24 08:45) Medication List - Last Reconciled 04/16/24 by Florecita Bettencourt MD calcium carbonate-vitamin D3 600 mg-10 mcg (400 unit) 1 tab PO BID cefuroxime axetil 500 mg PO Q12H 14 days cholecalciferol (vitamin D3) 50 mcg PO DAILY 90 days [Commode As directed] finasteride 5 mg PO DAILY 90 days gabapentin 300 mg PO TID levothyroxine 112 mcg PO DAILY losartan 50 mg PO DAILY meloxicam 15 mg PO DAILY montelukast 10 mg PO DAILY omeprazole 40 mg PO DAILY@0630 90 days [Shower chair w/back As directed] spironolactone 50 mg PO DAILY 90 days tamsulosin 0.4 mg PO DAILY 90 days Tobacco use date assessed: 04/16/24 Fall risk assessment: No Falls in past year Last assessed Fall Risk: 04/16/24 Dental Screening Dental Screen Date: 04/16/24 Did you have a dental visit in the last 12 months?: No Did you have a dental problem in the last 6 months where you did not have access to dental care?: No Was dental information given to patient?: No HPI HDF ~ Post hospital discharge FU HPI Details Patient was admitted [facility] [place] from 04/01/24 till 04/10/24 This is a telemedicine hospital discharge follow-up Patient is a 63-year-old male with pertinent history of hypothyroidism, hypertension, mood disorder, peripheral neuropathy who presents to the emergency department for evaluation of inability to urinate and blood in stools. Patient had generalized abdominal discomfort and initially had urinary hesitancy but was unable to urinate for the last 3 days before presenting to ER. Has associated nausea and chills. Patient's son also noticed blood in stools on the day of presentation. Patient had some diarrhea No vomiting or fever. No chest discomfort, palpitations, shortness of breath. In the emergency department, bladder scan with mood than 500 cc of urine and more than 1000 cc urine output upon insertion of Nolasco. Urine concerning for UTI. White count 34.3 and lactic acidosis present Septic shock due to acute pyelonephritis/E coli bacteremia. Initially admitted to the medical service but due to persistent hypotension was transferred to the ICU for vasopressor support. Also went into respiratory failure requiring intubation. acute hypoxic respiratory failure due to septic shock, intubated 04/02, extubated 04/04. Transferred out of ICU 04/06/2024. cultures sensitive to ceftriaxone. Seen by ID who recommended ceftin 500 bid x 21 days. He was able to be weaned off of supplemental oxygen seen by urology, nolasco placed. recommend to continue nolasco x 3-4 weeks. continue flomax, start finasteride as per urology recommendation Acute kidney injury (resolving in response to therapies) resolved Hypokalemia resolved with replacement Acute metabolic acidosis due to above resolved Acute GI bleed with blood loss anemia Placed on omeprazole Seen by GI no indication for endoscopy. H/H stable recommend outpatient follow up He was evaluated by Physical therapy who recommended short-term rehab. Patient declined and has elected to return home with home services. he has apt coming up with Urology on 18 of this month still have Urinary catheter no more bleeding in stools, patient is not interested in seeing Gastro at this time he has VNA service Eating and baseline ambulating no fever no chills no abdominal pain PFSH Medical History Legally blind Asthma HTN (hypertension) Social History Household Members: None Housing: Apartment Patient Tobacco Use Status: Current everyday Tobacco user Tobacco use type: Cigarette Cigarettes Per Day: 2 e-Cigarette/Vaping Use: Never Used service: No Current occupational status: disabled Cognitive needs: No Hearing needs: No Vision needs: 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) Questionnaire Thrive Questionnaire Date Thrive assessed: 04/01/24 MINNIE-7 AMB Questionnaire MINNIE-7 Date MINNIE - 7 assessed: 03/03/24 Source: Developed by Drs. Tarun Chance, Bethany Saucedo, Rodriguez Martin and colleagues, with an educational chioma from [employer]. Review of Systems Const Denies chills and Denies fever(s) ENT Denies epistaxis and Denies nasal discharge Card Denies chest pain Resp Denies chest congestion, Denies cough and Denies hemoptysis GI Denies nausea Skin/Breast Denies rash Neuro Reports no additional complaints Psych Reports no additional complaints Endo Reports no additional complaints Physical exam (Primary Care) Tobacco/Smoking Status: Tobacco use Status Tobacco use date assessed 04/16/24 04/16/24 08:46 Patient Tobacco Use Status Current everyday Tobacco 04/16/24 08:46 Tobacco use type Cigarette 04/16/24 08:46 e-Cigarette/Vaping Use Never Used 04/16/24 08:46 Thrive Assessment: Date of Thrive Assessment Date Thrive assessed 04/01/24 04/16/24 08:46 Telehealth Telehealth Telehealth Platform: [employer] Location of provider rendering services: practice address Location of patient: address on file Patient Identification confirmed using: Name, : Yes Telehealth method: video (attempted) Patient verbally consented to treatment: Yes Patient verbally consented to billing insurance company: Yes Patient informed of any privacy concerns related to visit: Yes Minutes spent on Phone/Video with Pt.: 30 Assessment and Plan Assessment & Plan (1) Hospital discharge follow-up: Code(s): Z09 - Encounter for follow-up examination after completed treatment for conditions other than malignant neoplasm (2) Urinary outflow obstruction: Code(s): N13.9 - Obstructive and reflux uropathy, unspecified (3) Acute sepsis: Code(s): A41.9 - Sepsis, unspecified organism (4) Acute renal failure: Code(s): N17.9 - Acute kidney failure, unspecified Qualifiers: Acute renal failure type: unspecified Qualified Code(s): N17.9 - Acute kidney failure, unspecified (5) Bloody stools: Code(s): K92.1 - Melena (6) Urinary catheter in place: Code(s): Z96.0 - Presence of urogenital implants Plan Patient was admitted [facility] [place] from 04/01/24 till 04/10/24 This is a telemedicine hospital discharge follow-up Patient is a 63-year-old male with pertinent history of hypothyroidism, hypertension, mood disorder, peripheral neuropathy who presents to the emergency department for evaluation of inability to urinate and blood in stools. Patient had generalized abdominal discomfort and initially had urinary hesitancy but was unable to urinate for the last 3 days before presenting to ER. Has associated nausea and chills. Patient's son also noticed blood in stools on the day of presentation. Patient had some diarrhea No vomiting or fever. No chest discomfort, palpitations, shortness of breath. In the emergency department, bladder scan with mood than 500 cc of urine and more than 1000 cc urine output upon insertion of Nolasco. Urine concerning for UTI. White count 34.3 and lactic acidosis present Septic shock due to acute pyelonephritis/E coli bacteremia. Initially admitted to the medical service but due to persistent hypotension was transferred to the ICU for vasopressor support. Also went into respiratory failure requiring intubation. acute hypoxic respiratory failure due to septic shock, intubated 04/02, extubated 04/04. Transferred out of ICU 04/06/2024. cultures sensitive to ceftriaxone. Seen by ID who recommended ceftin 500 bid x 21 days. He was able to be weaned off of supplemental oxygen seen by urology, nolasco placed. recommend to continue nolasco x 3-4 weeks. continue flomax, start finasteride as per urology recommendation Acute kidney injury (resolving in response to therapies) resolved Hypokalemia resolved with replacement Acute metabolic acidosis due to above resolved Acute GI bleed with blood loss anemia Placed on omeprazole Seen by GI no indication for endoscopy. H/H stable recommend outpatient follow up He was evaluated by Physical therapy who recommended short-term rehab. Patient declined and has elected to return home with home services. he has apt coming up with Urology on 18 of this month still have Urinary catheter no more bleeding in stools, patient is not interested in seeing Gastro at this time he has VNA service Eating and baseline ambulating no fever no chills no abdominal pain Coding Level of Care Code Tele Est Pt Level 4 (46405) Diagnoses Hospital discharge follow-up Z09 Urinary outflow obstruction N13.9 Acute sepsis A41.9 Acute renal failure N17.9 Acute renal failure type: unspecified Bloody stools K92.[address] Z96.0
== END 2024-04-16 09:13 | disposition home or self-care (01) ==
LOC: HO.HMGC 08:22
PROVIDERS: PCP Internal Medicine; Visit Provider Internal Medicine
DX: N13.9 Obstructive and reflux uropathy, unspecified (principal); A41.9 Sepsis, unspecified organism; N17.9 Acute kidney failure, unspecified; K92.1 Melena; Z96.0 Presence of urogenital implants
CPT/HCPCS: 99214

== ENCOUNTER 2024-04-17 10:43 | Outpatient (REF) | payer MEDICARE, MEDICAID, SELFPAY ==
[2024-04-17 11:27] LABS: Hematocrit 26.8 % (42.0-52.0); Mean Corpuscular HGB Conc 33.6 g/dl (31.0-36.0); Mean Corpuscular Hemoglobin 31.8 pg (27.0-33.0); Mean Corpuscular Volume 94.7 fL (80.0-98.0); Mean Platelet Volume 9.3 fL (9.4-12.4); Red Blood Count 2.83 X10*6/uL (4.60-5.80); Red Cell Distribution Width 16.5 % (11.0-16.0)
[2024-04-17 11:29] LABS: Platelet Count 632 X10*3/uL (160-400)
== END 2024-04-17 10:44 | disposition home or self-care (01) ==
LOC: HO.HVNA 10:43
PROVIDERS: Visit Provider Physician Assistant Medical
DX: D64.9 Anemia, unspecified (principal)
CPT/HCPCS: 36415; 85027

== ENCOUNTER → 2024-04-22 09:19 | Outpatient (BNVA) | payer MEDICARE, MEDICAID, SELFPAY | PROVIDERS: PCP Internal Medicine; Visit Provider Urology | DX: N12 Tubulo-interstitial nephritis, not specified as acute or chronic (principal); B96.20 Unspecified Escherichia coli [E. coli] as the cause of diseases classified elsewhere; N13.9 Obstructive and reflux uropathy, unspecified; R33.9 Retention of urine, unspecified; Z96.0 Presence of urogenital implants | CPT/HCPCS: 51700; 51798 ==

== ENCOUNTER 2024-04-28 11:39 | Inpatient (IN) | payer MEDICARE, MEDICAID, SELFPAY ==
[2024-04-28] VITALS (12 sets, daily range): BP systolic 93–125; BP diastolic 43–77; PULSE 92–120; RESP 14–21; TEMP 36.8–38; O2SAT 92–98; BMI 26.5
--- NOTE | ~2024-04-28 | CT_ITS ---
EXAMINATION: CT ABDOMEN AND PELVIS WITHOUT CONTRAST CLINICAL INFORMATION: Acute renal failure, fever COMPARISON: CT scan of abdomen and pelvis on 04/01/2024 TECHNIQUE: Multidetector volumetric imaging was performed from the superior aspect of the liver through the pubic symphysis. Sagittal and coronal reformatted images were obtained on the technologist's workstation. This CT examination was performed using dose optimization techniques as appropriate, variously including the following: *Automated exposure control *Adjustment of mA and/or kV according to patient size (this includes techniques or standardized protocols for targeted exams where dose is matched to indication/reason for exam; i.e. extremities or head) *Use of iterative reconstruction technique DLP: 758 mGy-cm FINDINGS: CT ABDOMEN LUNG BASES: Bilateral lung bases are clear. LIVER: Liver appears to be grossly normal on noncontrast enhanced images. GALLBLADDER AND BILIARY TREE: Gallbladder appears unremarkable without calcified stones. Common bile duct is not dilated. SPLEEN: The spleen is normal in size without focal lesion on noncontrast enhanced images. PANCREAS: The pancreas appears unremarkable on noncontrast enhanced images. ADRENAL GLANDS: Adrenal glands are normal in size without focal lesion bilaterally. KIDNEYS: The right kidney is asymmetrically enlarged, with marked perinephric inflammatory stranding. Moderate right renal pelviectasis and marked right hydroureter surrounded by periureteric inflammatory stranding is seen. Moderate left hydronephrosis and moderate left hydroureter are seen. A punctate 0.2 cm left upper pole renal calculus, mean attenuation of 30 Hounsfield units, is present. BOWELS: There is no abnormal dilatation of the large and small bowel loops. Ascending colon shows circumferential mural thickening. Multiple diverticula are seen in the lower descending colon. RETROPERITONEUM: Severe extensive right pararenal fascia and to a lesser extent left pararenal fascia inflammatory stranding is present. No abnormally enlarged retroperitoneal lymph nodes, mass or hematoma could be seen. BLOOD VESSELS: Abdominal aorta is normal in size with scattered atherosclerotic calcifications. ABDOMINAL WALL: Small umbilical hernia containing congested mesenteric fat is seen. PERITONEUM: There is no ascites. Right lateral parietal peritoneal pericolic inflammatory stranding surrounding the ascending colon is seen. No free peritoneal air was seen. BONES: Unchanged advanced L4-L5 and L5-S1 degenerative lumbar disc disease is seen. No fracture or dislocation. A persistent large inferior L4 radiolucent lesion with sclerotic border is seen, measuring 1.8 cm in AP diameter, 1.3 cm in width, 1.9 cm in vertical height (previously 1.8 x 1.4 x 1.[address] PELVIS URINARY BLADDER: The visualized urinary bladder is normal, filled with urine. No intraluminal stones are found. No abnormally dilated distal ureters are seen. BOWELS: There is no abnormal dilatation of the large and small bowel loops. Multiple diverticula are seen in the descending colon and sigmoid colon. Mild air distended appendix is seen projecting inferior to the cecum. GENITAL ORGANS: Seminal vesicles are unremarkable. Prostate gland is massively enlarged, measuring 5.8 cm in AP diameter, 5.3 cm in width, 5.4 cm in vertical height (previously 5.9 cm), containing a hypodense area in the right prostate transition zone, measuring 2.7 cm in AP diameter, 2.5 cm in width, 2.3 cm in vertical height, mean attenuation of -9 Hounsfield units. Focal chunky calcification is seen in left parasagittal posterior prostate transition zone. LYMPH NODES: No abnormally enlarged iliac or inguinal lymph nodes are seen. PERITONEUM: Mild pericolic inflammatory stranding is seen surrounding the lower descending and proximal sigmoid colon. No free peritoneal air are found in the pelvis. Bilateral small inguinal hernias containing mesenteric fat. BONES: No fracture or dislocation. No focal bone lesion diagnostic of metastatic disease could be seen in the pelvis. CT/CT abdomen pelvis wo IV con IMPRESSION: 1. Interval increase in bilateral hydronephrosis and hydroureters, marked worsening of bilateral perinephric and periureteric inflammatory changes, compatible with worsening pyelonephritis and ureteritis. 2. Unchanged left upper pole nonobstructive renal calculus. 3. Interval development of worsening of bilateral pararenal fascia inflammatory changes, most severe on the right side. 4. Interval development of ascending, lower descending and proximal sigmoid colitis, persistent descending and sigmoid colon diverticulosis. 5. Interval removal of Estevez catheter, development of massive distention of urinary bladder. 6. Persistent massive enlargement of prostate gland, interval appearance of right prostate transition zone low density lesion suspicious of prostatic abscess. 7. Unchanged large inferior L4 radiolucent lesion with sclerotic border. 8. Unchanged advanced L4-L5 and L5-S1 degenerative lumbar disc disease. 9. Unchanged Bilateral small inguinal hernias containing mesenteric fat. Fleischner guidelines were followed. Electronically signed by: Jazmín Joe MD 04/28/2024 03:32 PM EDT RP
--- NOTE | ~2024-04-28 | XR_ITS ---
EXAMINATION: XR CHEST CLINICAL INFORMATION: Weakness COMPARISON: 04/02/2024 TECHNIQUE: Frontal view of the chest was obtained. FINDINGS: Cardiomediastinal silhouette is normal in size. Multiple wires overlie the chest. No large effusion or pneumothorax. Mild bronchial wall thickening although aeration is significantly improved compared with the most recent prior exam. XR/XR chest 1V IMPRESSION: Mild bronchial wall thickening suggesting small airways disease. No dense consolidation. Overall improved from prior. Electronically signed by: Tarun Llanes MD 04/28/2024 01:55 PM EDT
--- NOTE | 2024-04-28 12:18 | ECG_ITS ---
Test Reason : SEPSIS PROTOCOL/ TACHYCARDIC Blood Pressure : / mmHG Vent. Rate : 119 BPM Atrial Rate : 119 BPM P-R Int : 130 ms QRS Dur : 076 ms QT Int : 316 ms P-R-T Axes : 065 056 022 degrees QTc Int : 444 ms Sinus tachycardia with Premature atrial complexes with Aberrant conduction Abnormal ECG When compared with ECG of 05-APR-2024 08:43, Premature ventricular complexes are no longer Present Referred By: Tara Beth Electronically Signed By:JOY GONZALEZ
--- NOTE | 2024-04-28 12:19 | ED.AMS ---
HPI - Altered Mental Status General Chief Complaint: Fever Stated Complaint: FEVER,WEAK,CHILLS, SEEN RECENTLY PER EMS Time Seen by Provider: 04/28/24 12:17 Source: patient, EMS, RN notes reviewed and old records reviewed Mode of arrival: EMS Limitations: no limitations History of Present Illness ED Provider: Angelique Beth PA-C HPI narrative: 63 yo male with history of hypothyroidism, legally blind, hypertension, mood disorder, peripheral neuropathy, BPH, history of [place] [facility] for septic shock & respiratory failure requiring intubation, with acute pyelonephritis with pansensitive E coli bacteremia who presents back to the ER for evaluation of fevers that started yesterday along with generalized weakness. He was discharged with plan to be on Ceftin 500 mg b.i.d. for 3 weeks. Patient states he recently had his Estevez catheter removed and has since been having difficulty urinating. He states he is able to get out small amounts of urine but never completely void and empty his bladder. He denies any associated suprapubic pain, abdominal pain, nausea, vomiting, diarrhea. He reports generalized weakness, fever and chills. No URI symptoms. No known sick contacts. He has been compliant with his antibiotics. MD complaint: weakness and other (fever) Onset (ago): day(s) (1) Timing confirmed by: family member Severity: moderate Consistency of symptoms: getting Worse Context: recent fever Associated symptoms: weakness and other (difficulty urinating) Related Data Home Medications ?Medication ?Instructions ?Recorded ?Confirmed calcium carbonate 600 mg-vitamin 1 tab PO BID 04/01/24 04/16/24 D3 10 mcg (400 unit) tablet levothyroxine 112 mcg tablet 112 mcg PO DAILY 04/01/24 04/16/24 gabapentin 300 mg capsule 300 mg PO TID 04/09/24 04/16/24 Previous Rx's ?Medication ?Instructions ?Recorded losartan 50 mg tablet 50 mg PO DAILY #90 tabs 11/18/23 montelukast 10 mg tablet 10 mg PO DAILY #90 tabs 11/18/23 spironolactone 50 mg tablet 50 mg PO DAILY 90 days #90 tabs 02/12/24 meloxicam 15 mg tablet 15 mg PO DAILY #30 tabs 03/03/24 cholecalciferol (vitamin D3) 50 50 mcg PO DAILY 90 days #90 caps 04/03/24 mcg (2,000 unit) capsule cefuroxime axetil 500 mg tablet 500 mg PO Q12H 14 days #28 tabs 04/10/24 finasteride 5 mg tablet 5 mg PO DAILY 90 days #90 tabs 04/10/24 omeprazole 40 mg capsule,delayed 40 mg PO DAILY@0630 90 days #90 04/10/24 release caps tamsulosin 0.4 mg capsule 0.4 mg PO DAILY 90 days #90 caps 04/10/24 Commode #1 ea 04/15/24 Shower chair w/back #1 ea 04/15/24 Allergies Allergy/AdvReac Type Severity Reaction Status Date / Time No Known Allergies Allergy Verified 04/28/24 12:10 [No Known Allergies*] Review of Systems Review of Systems: Yes all other systems are reviewed and are negative [facility] Past Medical History Medical History Legally blind Asthma HTN (hypertension) Social History Social History Household Members: None Housing: Apartment Patient Tobacco Use Status: Current everyday Tobacco user Tobacco use type: Cigarette Cigarettes Per Day: 2 e-Cigarette/Vaping Use: Never Used Advance Directives: No Advance Directives Information Provided: Yes service: No Current occupational status: disabled Cognitive needs: No Hearing needs: No Vision needs: 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) Physical Exam ED Vital Signs: Vital Signs - 24 hr 04/28/24 12:09 04/28/24 12:43 04/28/24 13:35 Temperature 100.4 F 99.9 F 99.7 F Pulse Rate 120 H 112 H 110 H Respiratory Rate 18 16 18 Blood Pressure 125/76 113/77 123/69 Pulse Oximetry 96 97 95 Oxygen Delivery Method Nasal Cannula Room Air Room Air 04/28/24 14:29 04/28/24 15:07 04/28/24 15:22 Temperature 99.1 F Pulse Rate 110 H 103 H 103 H Respiratory Rate 16 Blood Pressure 114/62 112/66 105/65 Pulse Oximetry 96 Oxygen Delivery Method 04/28/24 15:35 Temperature 99 F Pulse Rate 103 H Respiratory Rate 14 Blood Pressure 115/61 Pulse Oximetry 95 Oxygen Delivery Method Room Air BMI result Body Mass Index 26.5 Appearance: Alert. Oriented X3. No acute distress. Head: normocephalic, atraumatic. Eyes: Pupils unequal, cloudy corneas, nystagmus ENT: Pharynx normal. No tonsillar swelling or exudate. Neck: Normal inspection. Neck supple. CVS: Normal heart rate and rhythm. Pulses normal. Respiratory: No respiratory distress. Breath sounds diminished throughout Abdomen: Softly distended and nontender. +BS x4 Skin: Skin very warm and dry. Normal skin color. Normal skin turgor. No rashes. Extremities: No lower extremity edema. No joint swelling. Neuro/psych: Oriented X 3. Globally weak, nonfocal. CN II-XII intact. Normal speech and cognition. Medications Administered Discontinued Medications Generic Name Dose Route Start Last Admin Trade Name Dakotaq PRN Reason Stop Dose Admin Acetaminophen 975 mg 04/28/24 12:31 04/28/24 12:48 Acetaminophen 325 Mg Tablet PO 04/28/24 12:32 975 mg ONCE ONE Administration Ceftriaxone Sodium 1 gm/ 50 mls @ 100 mls/hr 04/28/24 12:31 04/28/24 13:30 Sodium Chloride IV 04/28/24 13:00 Infused ONCE ONE Infusion Lactated Ringer's 2,376 mls @ 2,376 mls/hr 04/28/24 12:31 04/28/24 15:05 Lr 30 ml/kg infuse over 1 hr (2376 ml) 04/28/24 13:30 Infused IV Infusion .Q1H ONE Medical Decision Making Medical Decision Making MDM Narrative: 63-year-old male with recent [place] [facility] [place] acute hypoxic respiratory failure, septic shock secondary to pyelonephritis and pansensitive E coli bacteremia who presents back to the ER for fevers, chills, weakness and difficulty urinating after having his Estevez catheter removed a few days ago. He thinks it was taken out the end of last week. He arrives to the ER with a low-grade temperature of a 100.4 degrees, tachycardic to the 120s, blood pressure is stable 120/76. He is saturating well on room air. He has no physical complaints except for weakness and chills. Under scan showed 400 in the bladder, he was straight cathed for urine sample. Concern for sepsis, IV fluid bolus and Rocephin were ordered along with Tylenol. Lab work returning with a mildly elevated lactic acid of 2.3. White blood cell count of 16.5. He was found to have acute renal failure with a BUN of 37 and a creatinine of 6.06. He was discharged earlier this month with a creatinine of 0.98. Estevez catheter was ordered as well as a CT scan, concern for possible obstructive process. CT scan was significant right-sided perinephric stranding. reading is also stating ascending, lower descending, proximal sigmoid colitis. There is is also bilateral para renal fascia inflammatory changes more severe on the right side. He has very large prostate and a significant the distended bladder. His abdomen is not peritonitic. He has no back pain. He remains hemodynamically stable. Will add Flagyl for increased intra-abdominal coverage given the colitis findings. Will admit to the hospital for further management. Differential Diagnosis Differential Diagnoses: The differential diagnosis associated with the presentation includes Sepsis secondary to UTI, bacteremia, pneumonia, acute abdominal infection, COVID or viral sepsis Admission/Observation Consideration of admission/observation: Escalation of care including admission/observation considered Consult Healthcare Provider Management of the patient was discussed with: Hospitalist and Outside Cutter Hand Lab Data MDM Lab Attestation statement: I reviewed the patient's lab results. Leukocytosis, worsening anemia, thrombocytosis, acute renal failure without any significant metabolic acidosis 04/28/24 12:24 04/28/24 12:24 Labs: Lab Results 04/28/24 04/28/24 04/28/24 Range/Units 12:24 12:26 12:32 WBC 16.5 H (4.8-10.8) X10*3/uL RBC 2.75 L (4.60-5.80) X10*6/uL Hgb 8.5 L (14.0-18.0) g/dl Hct 24.9 L (42.0-52.0) % MCV 90.5 (80.0-98.0) fL MCH 30.9 (27.0-33.0) pg MCHC 34.1 (31.0-36.0) g/dl RDW 15.5 (11.0-16.0) % Plt Count 434 H D (160-400) X10*3/uL MPV 9.2 L (9.4-12.4) fL Immature Gran % (Auto) 0.8 H (0.0-0.4) % Neut % (Auto) 85.3 H (45-73) % Lymph % (Auto) 5.8 L (20-40) % [place] % (Auto) 7.5 (2-11) % Eos % (Auto) 0.2 (0-4) % Baso % (Auto) 0.4 (0-2) % Lymph # (Auto) 1.0 L (1.2-4.9) X10*3/uL [place] # (Auto) 1.2 (0.1-1.2) X10*3/uL Eos # (Auto) 0.0 (0.0-0.4) X10*3/uL Baso # (Auto) 0.1 (0.0-0.2) X10*3/uL Abs Immat Gran (auto) 0.14 H (0.00-0.03) X10*3/uL Absolute Neuts (auto) 14.1 H (2.0-8.3) x10*3/uL Absolute Nucleated RBC 0.000 (0.0-0.012) X10*3/uL Nucleated RBC % (auto) 0.0 (0.0-0.2) /100WBC PT 13.8 H (10.9-12.4) SEC INR 1.2 H (0.9-1.1) APTT 25.8 L (26.0-36.8) SEC VBG pH 7.38 (7.32-7.43) VBG pCO2 31 mmHg VBG pO2 47 mmHg VBG HCO3 19 L (22-26) mmol/L VBG O2 Saturation 79.0 % VBG Base Excess -5.0 mmol/L Sodium 137 (135-145) mmol/L Potassium 3.1 L (3.3-5.1) mmol/L Chloride 108 (96-108) mmol/L Carbon Dioxide 20 L (22-29) mmol/L Anion Gap 12 (12-20) BUN 37 H (9-16) mg/dL Creatinine 6.06 H* (0.5-1.4) mg/dL Estim Creat Clear Calc 11.9 Estimated GFR 9 POC Glucose (60-115) mg/dL Random Glucose 149 H (60-115) mg/dL Lactic Acid 2.3 H* (0.5-2.0) mmol/L Lactic Acid F/U @ 2Hr (0.5-2.0) mmol/L Calcium 7.8 L (8.4-10.2) mg/dL Magnesium 1.5 L (1.6-2.6) mg/dL Total Bilirubin 0.5 (0.0-1.0) mg/dL Direct Bilirubin 0.3 (0.0-0.5) mg/dL AST 34 (5-37) U/L ALT 40 (0-40) U/L Alkaline Phosphatase 106 (39-117) U/L Ammonia 35 (13-55) umol/L Troponin I High Sens 16.1 D (<3.5-35.0) ng/L C-Reactive Protein 19.31 H (< or = 0.50) mg/dL B-Natriuretic Peptide 29 (<100) pg/mL Total Protein 6.3 L (6.5-8.0) g/dL Albumin 3.2 L (3.5-5.0) g/dL Lipase 13 (8-78) U/L TSH 4.68 H (0.32-4.0) uIU/mL Free T4 0.96 (0.71-1.85) ng/dL Urine Color Urine Appearance Urine pH (5.0-9.0) Ur Specific [place] (1.005-1.025) Urine Protein (Neg-Trace) mg/dL Urine Glucose (UA) (Negative) mg/dL Urine Ketones (Negative) mg/dL Urine Blood (Negative) Urine Nitrite (Negative) Ur Leukocyte Esterase (Negative) Urine RBC (0-2) /HPF Urine WBC (0-5) /HPF Ur Squamous Epith Cells (0-2) /HPF Urine Bacteria (None Seen) Hyaline Casts (0-2) /LPF Urine Yeast Influenza Type A (PCR) (Negative) Influenza Type B (PCR) (Negative) RSV RNA Qual (PCR) (Negative) SARS-CoV-2 RNA (RT-PCR) (Negative) 04/28/24 04/28/24 04/28/24 Range/Units 12:41 12:46 14:51 WBC (4.8-10.8) X10*3/uL RBC (4.60-5.80) X10*6/uL Hgb (14.0-18.0) g/dl Hct (42.0-52.0) % MCV (80.0-98.0) fL MCH (27.0-33.0) pg MCHC (31.0-36.0) g/dl RDW (11.0-16.0) % Plt Count (160-400) X10*3/uL MPV (9.4-12.4) fL Immature Gran % (Auto) (0.0-0.4) % Neut % (Auto) (45-73) % Lymph % (Auto) (20-40) % [place] % (Auto) (2-11) % Eos % (Auto) (0-4) % Baso % (Auto) (0-2) % Lymph # (Auto) (1.2-4.9) X10*3/uL [place] # (Auto) (0.1-1.2) X10*3/uL Eos # (Auto) (0.0-0.4) X10*3/uL Baso # (Auto) (0.0-0.2) X10*3/uL Abs Immat Gran (auto) (0.00-0.03) X10*3/uL Absolute Neuts (auto) (2.0-8.3) x10*3/uL Absolute Nucleated RBC (0.0-0.012) X10*3/uL Nucleated RBC % (auto) (0.0-0.2) /100WBC PT (10.9-12.4) SEC INR (0.9-1.1) APTT (26.0-36.8) SEC VBG pH (7.32-7.43) VBG pCO2 mmHg VBG pO2 mmHg VBG HCO3 (22-26) mmol/L VBG O2 Saturation % VBG Base Excess mmol/L Sodium (135-145) mmol/L Potassium (3.3-5.1) mmol/L Chloride (96-108) mmol/L Carbon Dioxide (22-29) mmol/L Anion Gap (12-20) BUN (9-16) mg/dL Creatinine (0.5-1.4) mg/dL Estim Creat Clear Calc Estimated GFR POC Glucose 130 H (60-115) mg/dL Random Glucose (60-115) mg/dL Lactic Acid (0.5-2.0) mmol/L Lactic Acid F/U @ 2Hr 0.9 (0.5-2.0) mmol/L Calcium (8.4-10.2) mg/dL Magnesium (1.6-2.6) mg/dL Total Bilirubin (0.0-1.0) mg/dL Direct Bilirubin (0.0-0.5) mg/dL AST (5-37) U/L ALT (0-40) U/L Alkaline Phosphatase (39-117) U/L Ammonia (13-55) umol/L Troponin I High Sens (<3.5-35.0) ng/L C-Reactive Protein (< or = 0.50) mg/dL B-Natriuretic Peptide (<100) pg/mL Total Protein (6.5-8.0) g/dL Albumin (3.5-5.0) g/dL Lipase (8-78) U/L TSH (0.32-4.0) uIU/mL Free T4 (0.71-1.85) ng/dL Urine Color Yellow Urine Appearance Cloudy Urine pH 5.5 (5.0-9.0) Ur Specific [place] 1.010 (1.005-1.025) Urine Protein 30 (1+) H (Neg-Trace) mg/dL Urine Glucose (UA) Negative (Negative) mg/dL Urine Ketones Negative (Negative) mg/dL Urine Blood Moderate (2+) H (Negative) Urine Nitrite Negative (Negative) Ur Leukocyte Esterase Moderate (2+) H (Negative) Urine RBC 3-5 H (0-2) /HPF Urine WBC 11-20 (0-5) /HPF Ur Squamous Epith Cells 0-2 (0-2) /HPF Urine Bacteria None Seen (None Seen) Hyaline Casts 0-2 (0-2) /LPF Urine Yeast Present Influenza Type A (PCR) NEGATIVE (Negative) Influenza Type B (PCR) NEGATIVE (Negative) RSV RNA Qual (PCR) NEGATIVE (Negative) SARS-CoV-2 RNA (RT-PCR) NEGATIVE (Negative) ABG Data ABG Results: Attestation ABG: I personally reviewed and interpreted this ABG as follows: Interpretation: No evidence of acute metabolic acidosis Independent Interpretation I performed an independent interpretation of an: EKG, Plain X-Ray and CT Scan Interpretation: Sinus tachycardia, ventricular rate 119 beats per minute, no ST segment elevations or depressions, normal QTC, normal QRS cxr with dense consolidation CT w/ severe right sided perinephric stranding, bilateral hydroureteronephrosis with no visible obstructing stone Radiology Impression Discussion of test interpretation with radiology: I have reviewed the radiologist's reading. Radiologist Impression: CT/CT abdomen pelvis wo IV con IMPRESSION: 1. Interval increase in bilateral hydronephrosis and hydroureters, marked worsening of bilateral perinephric and periureteric inflammatory changes, compatible with worsening pyelonephritis and ureteritis. 2. Unchanged left upper pole nonobstructive renal calculus. 3. Interval development of worsening of bilateral pararenal fascia inflammatory changes, most severe on the right side. 4. Interval development of ascending, lower descending and proximal sigmoid colitis, persistent descending and sigmoid colon diverticulosis. 5. Interval removal of Estevez catheter, development of massive distention of urinary bladder. 6. Persistent massive enlargement of prostate gland, interval appearance of right prostate transition zone low density lesion suspicious of prostatic abscess. 7. Unchanged large inferior L4 radiolucent lesion with sclerotic border. 8. Unchanged advanced L4-L5 and L5-S1 degenerative lumbar disc disease. 9. Unchanged Bilateral small inguinal hernias containing mesenteric fat. Independent Historian Clinical information obtained from an independent historian. History obtained from or confirmed by: EMS External Record Review External record reviewed: Inpatient record, Outpatient record, Prior outpatient labs and Prior outpatient radiology Prescription Management I considered prescription management with: Pain Medication and Antibiotic Chronic Conditions Patient?s care impacted by: Other (Hyperthyroidism, legally blind, asthma, recent sepsis) Critical Care Time Critical Care Time Total Critical Care Time: 55 Attestation: I have personally provided critical care time exclusive of time spent on separately billable procedures. Time includes review of lab data, radiology results, discussion with consultants, and monitoring for potential decompensation. Intervention performed as documented. Discharge Plan Discharge Clinical Impression: Pyelonephritis, EBEN (acute kidney injury), Colitis Sepsis Qualifiers: Sepsis type: sepsis due to unspecified organism Sepsis acute organ dysfunction status: with acute organ dysfunction Severe sepsis acute organ dysfunction type: acute renal failure Acute renal failure type: unspecified Severe sepsis shock status: without septic shock Qualified Code(s): A41.9 - Sepsis, unspecified organism Patient Disposition: Admitted As Inpatient Print Language: Puerto Rican
[2024-04-28 12:33] LABS: MANUAL DIFF FLAG NO
[2024-04-28 12:35] LABS: Venous Blood Gas Refer to POC result
[2024-04-28 12:36] LABS: VBG HCO3 19 mmol/L (22-26); VBG pCO2 31 mmHg; VBG pH 7.38 (7.32-7.43); VBG pO2 47 mmHg
[2024-04-28 12:37] LABS: Basophils Absolute Auto 0.1 X10*3/uL (0.0-0.2); Basophils Percent Auto 0.4 % (0-2); Eosinophils Percent Auto 0.2 % (0-4); Hematocrit 24.9 % (42.0-52.0); Hemoglobin 8.5 g/dl (14.0-18.0); Imm Gran Abs Auto 0.14 X10*3/uL (0.00-0.03); Imm Gran Pct Auto 0.8 % (0.0-0.4); Lymphocytes Percent Auto 5.8 % (20-40); Mean Corpuscular HGB Conc 34.1 g/dl (31.0-36.0); Mean Corpuscular Hemoglobin 30.9 pg (27.0-33.0); Mean Corpuscular Volume 90.5 fL (80.0-98.0); Mean Platelet Volume 9.2 fL (9.4-12.4); Monocytes Absolute Auto 1.2 X10*3/uL (0.1-1.2); Monocytes Percent Auto 7.5 % (2-11); Neutrophils Absolute Auto 14.1 x10*3/uL (2.0-8.3); Neutrophils Percent Auto 85.3 % (45-73); Platelet Count 434 X10*3/uL (160-400); Red Blood Count 2.75 X10*6/uL (4.60-5.80); Red Cell Distribution Width 15.5 % (11.0-16.0); White Blood Count 16.5 X10*3/uL (4.8-10.8)
[2024-04-28 12:42] LABS: Ammonia 35 umol/L (13-55)
[2024-04-28 12:43] LABS: INTERNATIONAL NORM RATIO 1.2 (0.9-1.1); Prothrombin Time 13.8 SEC (10.9-12.4)
[2024-04-28 12:45] LABS: Partial Thromboplastin Time 25.8 SEC (26.0-36.8)
[2024-04-28] MEDS: cefTRIAXone sodium 1 GM in 0.9 % Sodium Chloride 50 ML IV (12:47)
[2024-04-28 12:48] LABS: Glucose, Whole Blood 130 mg/dL (60-115)
[2024-04-28] MEDS: Acetaminophen 325 MG TABLET 975 MG PO (12:48)
[2024-04-28 12:56] LABS: Lactic Acid 2.3 mmol/L (0.5-2.0); Troponin-I High Sensitivity 16.1 ng/L (<3.5-35.0)
[2024-04-28 12:57] LABS: B Type Natriuretic Peptide 29 pg/mL (<100)
[2024-04-28 13:03] LABS: Alanine Aminotransferase 40 U/L (0-40); Albumin Level 3.2 g/dL (3.5-5.0); Alkaline Phosphatase 106 U/L (39-117); Anion Gap 12 (12-20); Aspartate Amino Transferase 34 U/L (5-37); Bilirubin Direct 0.3 mg/dL (0.0-0.5); Bilirubin Total 0.5 mg/dL (0.0-1.0); Blood Urea Nitrogen 37 mg/dL (9-16); C Reactive Protein 19.31 mg/dL (< or = 0.50); Calcium 7.8 mg/dL (8.4-10.2); Carbon Dioxide 20 mmol/L (22-29); Chloride 108 mmol/L (96-108); Creatinine Clr Calc Pharmacy 11.9; Estimated Glomerular Filt Rate 9; Glucose Random 149 mg/dL (60-115); Lipase 13 U/L (8-78); Magnesium 1.5 mg/dL (1.6-2.6); Potassium 3.1 mmol/L (3.3-5.1); Sodium 137 mmol/L (135-145); Total Protein 6.3 g/dL (6.5-8.0)
[2024-04-28 13:12] LABS: TSH reflex Free T4 4.68 uIU/mL (0.32-4.0)
[2024-04-28 13:33] LABS: Influenza A PCR NEGATIVE (Negative); Influenza B PCR NEGATIVE (Negative); Resp Syncy Virus RNA Qual PCR NEGATIVE (Negative); SARS COV2 PCR INHOUSE NEGATIVE (Negative)
--- OUTSIDE RECORDS SUMMARY | 2024-04-28 13:52 | XMS_ITS | Continuity of Care Document ---
Author Organization [facility] Address [address] [place] [id number] Care Team Providers Care Drafter Landscape Name Role Phone Not on Staff, PCP Primary Care Physician Unavail able Encounter [facility] [place] Date(s): 03/24/24 - 04/23/24 [facility] [address] [place] [id number] Allergies, Adverse Reactions, Alerts No Known Medication Allergies Medications Breo Ellipta 100 mcg-25 mcg/inh inhalation powder 1 puffs, Inhalation, Daily, # 60 Unknown, 8 Refills, [facility], [facility], INHALE 1 PUFF BY MOUTH INTO THE lungs DAILY, 170, cm, 07/20/21 8:17:00 EST, Height, 66, kg, 07/19/21 13:21:00 EST, Dry Weight Start Date: 09/20/21 Status: Ordered calcium-vitamin D 600 mg-400 intl units oral tablet 1 tablet, By Mouth, 2 times a day, # 60 tablet, 2 Refills, Maintenance, 04/15/22 14:16:00 EDT, [place], [place] - [id number], 30, 1 tablet By Mouth 2 times a day, 170, cm, 01/18/22 12:36:00 EDT, Height, 66, kg, 07/19/21 13:21:00 EST,... Start Date: 04/15/22 Status: Ordered cloNIDine 0.1 mg/24 hr transdermal film, extended release 1 patch, Topically, Daily, CHANGE DAILY ROTATE PLACEMENT, # 90 patch, 1 Refills, Maintenance, 01/17/21 9:19:00 EDT, Patch, [place], [place] - [id number], Partial fill upon patient request if the [...] Maintenance, 01/22/21 14:24:00 EDT, ECCapsule, [facility] [id number], Partial fill upon patient request if the prescription is for a schedule II opioid drug., 164.3... Start Date: 01/22/21 Stop Date: 07/21/21 Status: Ordered famotidine 40 mg oral tablet 1 tablet = 40 mg, By Mouth, 2 times a day, # 60 tablet, 2 Refills, Maintenance, 01/03/21 15:00:00 EDT, Tablet, [facility]/pharmacy #[id number], Partial fill upon patient request if the prescription is for a schedule II opioid drug., 164.3, cm, 01/03/21 14:30:00 ED... Start Date: 01/03/21 Stop Date: 04/03/21 Status: Ordered ibuprofen 800 mg oral tablet 800 mg, 1, tablet, By Mouth, Daily, PRN, # 30 tablet, Refills 0, Tot. Refills 0, Maintenance, Pain , Moderate, 12/24/21 12:52:00 EDT, Route to Pharmacy Electronically, [facility] [id number], Partial fill upon patient request i... Start Date: 12/24/21 Status: Ordered levothyroxine 0.112 mg oral tablet 1 tablet = 112 mcg, By Mouth, Daily, # 30 tablet, 3 Refills, Maintenance, 12/11/23 12:48:00 EDT, Tablet, [facility] [id number], Partial fill upon patient request if the prescription is for a schedule II opioid drug., 170, cm,... Start Date: 12/11/23 Status: Ordered lisinopril 40 mg oral tablet 1 tablet, By Mouth, Daily, # 90 tablet, 0 Refills, 04/15/22 14:16:00 EDT, [place], [place] - [id number], 170, cm, 01/18/22 12:36:00 EDT, Height, 66, kg, 07/19/21 13:21:00 EST, Dry Weight Start Date: 04/15/22 Status: Ordered montelukast 10 mg oral tablet 1, tablet, By Mouth, Daily, # 90 tablet, Refills 1, Tot. Refills 1, 04/15/22 14:16:00 EDT, Route toPharmacy Electronically, [facility] [id number], 170, cm, 01/18/22 12:36:00EDT, Height, 66, kg, 07/19/21 13:21:00 EST, Dry Weight Start Date: 04/15/22 Status: Ordered omeprazole 40 mg oral enteric coated capsule 1 capsule = 40 mg, By Mouth, Daily, # 90 capsule, 2 Refills, Maintenance, 01/26/21 14:22:00 EDT, ECCsophie, [place], [place] - [id number], Partial fill upon patient request if the prescription is for a schedule II opioid drug., 164.3... Start Date: 01/26/21 Status: Ordered omeprazole 40 mg oral enteric coated capsule 1 capsule = 40 mg, By Mouth, Daily, # 90 capsule, 3 Refills, Maintenance, 01/26/21 14:57:00 [id number], Partial fill upon patient request [...] 0, 04/15/22 14:16:00 EDT, Route toPharmacy Electronically, [facility] [place], [place] - [id number], 170, cm, 01/18/22 12:36:00EDT, Height, 66, kg, [...] Team Personnel Name: Seun Christian RN Position: [facility] RN Member Role: Primary Care Nurse Name: Not on Staff, PCP Position: [facility] Physician (General Medicine) Member Role: PCP Care Team Related Persons Name: DALALFLACO CORTEZ Address: [place] [address]
[2024-04-28 13:53] LABS: Free T4 (Free Thyroxine) 0.96 ng/dL (0.71-1.85)
--- NOTE | 2024-04-28 14:26 | PC.NURSE ---
patient had nolasco placed per provider order, 16 fr temp sensing nolasco placed with 10cc balloon, patient tolerated well. patient output of 1500, u/a collected and sent.
[2024-04-28 14:31] LABS: Reflex Lactate? Lactic Acid Added
[2024-04-28 14:57] LABS: Appearance Urine Cloudy; Color Urine Yellow; Glucose Urine UA Negative (Negative); Leukocyte Esterase Urine Moderate (2+) (Negative); Nitrite Urine Negative (Negative); PH 5.5 (5.0-9.0); UMIC TRIGGER UACC YES; Urine Blood Moderate (2+) (Negative); Urine Ketones Negative (Negative); Urine Protein 30 (1+) mg/dL (Neg-Trace)
[2024-04-28 15:06] LABS: Bacteria Urine None Seen (None Seen); Hyaline Casts Urine 0-2 /LPF (0-2); Squamous Epithelial Cell Urine 0-2 /HPF (0-2); UACC Culture Trigger YES
[2024-04-28 15:07] LABS: ~Lactic Acid-LAB USE ONLY 0.9 mmol/L (0.5-2.0)
--- NOTE | 2024-04-28 15:36 | PC.NURSE ---
1500 ml emptied out of patient nolasco bag
[2024-04-28] MEDS: metroNIDAZOLE/NS 500 MG/100 ML PIGGYBACK 100 MG IV (16:43)
--- NOTE | 2024-04-28 17:12 | PM.IMHP ---
History of Present Illness Date of Service: 04/28/24 Attending physician on admission: Isidro Mena Chief Complaint: weakness, subjective fevers 63-year-old male with pertinent history of hypothyroidism, hypertension, mood disorder, peripheral neuropathy presented to the ED earlier today for evaluation of generalized weakness and subjective fevers ongoing for several days. He was recently admitted to our facility from 04/01-04/10 due to septic shock and respiratory failure requiring intubation with acute pyelonephritis and ultimately grew pansensitive E coli with bacteremia discharged on Ceftin 500 mg b.i.d. x3 weeks which he reports he is still taking as prescribed. He was discharged with Estevez catheter which was reportedly removed 5 days ago. Upon removal of the for the catheter, he has been having difficulty with urination and has not been fully emptying his bladder. He states for several days he has also had multiple episodes of watery diarrhea. Has not actually checked his temperature but reports chills and sweats. Denies abdominal pain, nausea, vomiting diarrhea, melena, hematochezia, shortness of breath, near-syncope, palpitations, or chest pain. Denies dysuria, hematuria, urgency. Since arrival, has been tachycardic to 120, vital signs otherwise stable except for mild fever of 100.4. He has a leukocytosis of 16.5. Creatinine 6.06, baseline around 1. BUN 37, potassium 3.1, CO2 20. Lactic acid 2.3, repeat 0.9. CRP 19.31. VBG reassuring with pH 7.38, pCO2 31, bicarb 19. Urinalysis with 2+ leukocytes, 2+ blood, 11-20 WBCs and negative bacteria. Urine culture and blood cultures are pending. CT abdomen pelvis shows interval increase in bilateral hydronephrosis and hydroureter is with marked worsening of bilateral perinephric and periureteric inflammatory changes compatible with worsening pyelonephritis and ureteritis. There is also interval development of worsening bilateral perirenal fascia inflammatory changes most severe in the right side. There is also interval development of ascending, lower descending and proximal sigmoid colitis persistent distending and sigmoid colon diverticulitis. Persistent massive enlargement of prostate gland, interval appearance of right prostate transition zone low-density lesion suspicious of prostatic abscess. In the ED, has received IV ceftriaxone and Flagyl as well as 2.3 L IVF. Review of Systems Review of Systems: Yes all other systems are reviewed and are negative [facility] Medical History Eczema of both external ears Major depression, recurrent Legally blind Asthma HTN (hypertension) Social History Household Members: None Housing: Apartment Patient Tobacco Use Status: Current everyday Tobacco user Tobacco use type: Cigarette Cigarettes Per Day: 2 e-Cigarette/Vaping Use: Never Used Advance Directives: No Advance Directives Information Provided: Yes service: No Current occupational status: disabled Cognitive needs: No Hearing needs: No Vision needs: 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) Meds Allergies Allergy/AdvReac Type Severity Reaction Status Date / Time No Known Allergies Allergy Verified 04/28/24 12:10 [No Known Allergies*] Active Medications: Current Medications Acetaminophen (Acetaminophen 325 Mg Tablet) 650 mg PO Q6H PRN PRN Reason: Pain, Mild (Pain Scale 1-3), fever or headache Calcium Carbonate (Calcium Carbonate 750 Mg Tab.Chew) 750 mg PO Q4H PRN PRN Reason: Heartburn Heparin Sodium (Porcine) (Heparin Sodium,Porcine 5,000 Unit/Ml Vial) 5,000 unit SUBCUT Q12H RELL Ceftriaxone Sodium 1 gm/ (Sodium Chloride) 50 mls @ 100 mls/hr IV Q24H RELL Metronidazole (Flagyl) 500 mg in 100 mls @ 100 mls/hr IV Q8H RELL Magnesium Hydroxide (Milk Of Magnesia 30 Ml Oral.Susp) 30 ml PO DAILY PRN PRN Reason: Constipation Melatonin (Melatonin 3 Mg Tablet) 6 mg PO BEDTIME PRN PRN Reason: Insomnia Sodium Chloride (0.9 % Sodium Chloride Flush 3 Ml Syringe) 3 ml [facility]USH [facility] Home Medications ?Medication ?Instructions ?Recorded ?Confirmed ?Last Taken ?Type calcium carbonate 600 mg-vitamin 1 tab PO BID 04/01/24 04/16/24 Unknown History D3 10 mcg (400 unit) tablet levothyroxine 112 mcg tablet 112 mcg PO DAILY 04/01/24 04/16/24 Unknown History gabapentin 300 mg capsule 300 mg PO TID 04/09/24 04/16/24 Unknown History Physical Exam Vital Signs and Narrative: Vital Signs: Last Vital Signs Temp 98.6 F 04/28/24 16:41 Pulse 94 04/28/24 16:41 Resp 14 04/28/24 16:41 BP 121/53 L 04/28/24 16:41 Pulse Ox 95 04/28/24 16:41 O2 Del Method Room Air 04/28/24 16:41 Oxygen Flow Rate 2 04/28/24 12:09 BMI result Body Mass Index 26.5 Constitutional - Awake and Alert, weak appearing, No apparent distress Eyes - PERRLA, EOMI Cardiovascular - S1S2, RRR, No edema Respiratory - Normal lung expansion, Normal respiratory effort, No respiratory distress, CTA bilaterally Gastrointestinal - NT / ND; +BS; No rebound or guarding - No CVA tenderness Extremities - no calf tenderness bilaterally, no swelling Skin - Warm/Dry Neurological - Alert & oriented x3 Results Labs 04/28/24 12:24 04/28/24 12:24 Labs: Laboratory Results - last 24 hr 04/28/24 04/28/24 04/28/24 12:24 12:26 12:32 MCV 90.5 MCH 30.9 MCHC 34.1 RDW 15.5 Plt Count 434 H D MPV 9.2 L Immature Gran % (Auto) 0.8 H Neut % (Auto) 85.3 H Lymph % (Auto) 5.8 L [place] % (Auto) 7.5 Eos % (Auto) 0.2 Baso % (Auto) 0.4 Lymph # (Auto) 1.0 L [place] # (Auto) 1.2 Eos # (Auto) 0.0 Baso # (Auto) 0.1 Abs Immat Gran (auto) 0.14 H Absolute Neuts (auto) 14.1 H Absolute Nucleated RBC 0.000 Nucleated RBC % (auto) 0.0 PT 13.8 H INR 1.2 H APTT 25.8 L VBG pH 7.38 VBG pCO2 31 VBG pO2 47 VBG HCO3 19 L VBG O2 Saturation 79.0 VBG Base Excess -5.0 Anion Gap 12 Estim Creat Clear Calc 11.9 Estimated GFR 9 POC Glucose Random Glucose 149 H Lactic Acid 2.3 H* Lactic Acid F/U @ 2Hr Calcium 7.8 L Magnesium 1.5 L Total Bilirubin 0.5 Direct Bilirubin 0.3 AST 34 ALT 40 Alkaline Phosphatase 106 Ammonia 35 Troponin I High Sens 16.1 D C-Reactive Protein 19.31 H B-Natriuretic Peptide 29 Total Protein 6.3 L Albumin 3.2 L Lipase 13 TSH 4.68 H Free T4 0.96 Urine Color Urine Appearance Urine pH Ur Specific [place] Urine Protein Urine Glucose (UA) Urine Ketones Urine Blood Urine Nitrite Ur Leukocyte Esterase Urine RBC Urine WBC Ur Squamous Epith Cells Urine Bacteria Hyaline Casts Urine Yeast Influenza Type A (PCR) Influenza Type B (PCR) RSV RNA Qual (PCR) SARS-CoV-2 RNA (RT-PCR) 04/28/24 04/28/24 04/28/24 12:41 12:46 14:51 MCV MCH MCHC RDW Plt Count MPV Immature Gran % (Auto) Neut % (Auto) Lymph % (Auto) [place] % (Auto) Eos % (Auto) Baso % (Auto) Lymph # (Auto) [place] # (Auto) Eos # (Auto) Baso # (Auto) Abs Immat Gran (auto) Absolute Neuts (auto) Absolute Nucleated RBC Nucleated RBC % (auto) PT INR APTT VBG pH VBG pCO2 VBG pO2 VBG HCO3 VBG O2 Saturation VBG Base Excess Anion Gap Estim Creat Clear Calc Estimated GFR POC Glucose 130 H Random Glucose Lactic Acid Lactic Acid F/U @ 2Hr 0.9 Calcium Magnesium Total Bilirubin Direct Bilirubin AST ALT Alkaline Phosphatase Ammonia Troponin I High Sens C-Reactive Protein B-Natriuretic Peptide Total Protein Albumin Lipase TSH Free T4 Urine Color Yellow Urine Appearance Cloudy Urine pH 5.5 Ur Specific [place] 1.010 Urine Protein 30 (1+) H Urine Glucose (UA) Negative Urine Ketones Negative Urine Blood Moderate (2+) H Urine Nitrite Negative Ur Leukocyte Esterase Moderate (2+) H Urine RBC 3-5 H Urine WBC 11-20 Ur Squamous Epith Cells 0-2 Urine Bacteria None Seen Hyaline Casts 0-2 Urine Yeast Present Influenza Type A (PCR) NEGATIVE Influenza Type B (PCR) NEGATIVE RSV RNA Qual (PCR) NEGATIVE SARS-CoV-2 RNA (RT-PCR) NEGATIVE Imaging Radiologist's Impressions: Impressions Chest X-Ray 04/28/24 12:50 IMPRESSION: Mild bronchial wall thickening suggesting small airways disease. No dense consolidation. Overall improved from prior. Electronically signed by: Tarun Llanes MD 04/28/2024 01:55 PM EDT Abdomen/Pelvis CT 04/28/24 13:17 IMPRESSION: 1. Interval increase in bilateral hydronephrosis and hydroureters, marked worsening of bilateral perinephric and periureteric inflammatory changes, compatible with worsening pyelonephritis and ureteritis. 2. Unchanged left upper pole nonobstructive renal calculus. 3. Interval development of worsening of bilateral pararenal fascia inflammatory changes, most severe on the right side. 4. Interval development of ascending, lower descending and proximal sigmoid colitis, persistent descending and sigmoid colon diverticulosis. 5. Interval removal of Estevez catheter, development of massive distention of urinary bladder. 6. Persistent massive enlargement of prostate gland, interval appearance of right prostate transition zone low density lesion suspicious of prostatic abscess. 7. Unchanged large inferior L4 radiolucent lesion with sclerotic border. 8. Unchanged advanced L4-L5 and L5-S1 degenerative lumbar disc disease. 9. Unchanged Bilateral small inguinal hernias containing mesenteric fat. Fleischner guidelines were followed. Electronically signed by: Jazmín Joe MD 04/28/2024 03:32 PM EDT RP Assessment and Plan (1) Colitis: Status: Acute (2) EBEN (acute kidney injury): Status: Acute (3) Pyelonephritis: Status: Acute (4) Prostatic abscess: Status: Acute (5) Sepsis: Qualifiers: Acute renal failure type: unspecified Sepsis acute organ dysfunction status: with acute organ dysfunction Sepsis type: sepsis due to unspecified organism Severe sepsis acute organ dysfunction type: acute renal failure Severe sepsis shock status: without septic shock Qualified Code(s): A41.9 - Sepsis, unspecified organism; R65.20 - Severe sepsis without septic shock; N17.9 - Acute kidney failure, unspecified Status: Acute Plan 63-year-old male with pertinent history of hypothyroidism, hypertension, mood disorder, peripheral neuropathy who presents to the emergency department for evaluation of subjective fevers and generalized weakness who will be admitted for management of acute pyelonephritis with urinary retention and severe sepsis as well as acute kidney injury and colitis # severe sepsis due to acute pyelonephritis and possible prostatic abscess with acute urinary retention -leukocytosis 16.5, tachycardic, febrile. Lactic acid 2.3, EBEN with creatinine 6. No hypotension/shock. Received 2.3 L IVF -CT abdomen/pelvis shows increasing bilateral hydronephrosis and hydroureters with marked worsening of bilateral perinephric and periureteric inflammatory changes compatible with worsening pyelonephritis and ureteritis. There is unchanged nonobstructive renal calculus in the left upper pole as well as interval development of worsening of bilateral perirenal fascia inflammatory changes most severe on the right side. There is also persistent massive enlargement of prostate gland with interval appearance of right prostate transitioned own low density lesions suspicious of prostatic abscess -urine culture last admission grew pansensitive E coli with blood cultures x2 positive for E coli, however now presents with worsening imaging as above -IV Zosyn (initiated 04/28) -continue IVF -continue Estevez catheter. Recently placed last admission, then removed by Dr. Powers, ?Five days ago per patient -urology consult -follow cbc, cultures #Acute lactic acidosis due to severe sepsis #Acute kidney injury -Creat 6.06, baseline around 1. BUN 37 -urine studies pending -possibly post renal, likely also related to severe sepsis -continue Estevez with strict I&O -avoid nephrotoxins -Continue to monitor and avoid nephrotoxins. Consulted Nephrology # acute colitis -CT abdomen pelvis shows interval development of the ascending, lower descending and proximal sigmoid colitis persistent descending and sigmoid colon diverticulosis -IV Zosyn (04/28) -GI panel and C diff PCR given acute diarrhea related to colitis -follow CBC, cultures #Elevated liver enzymes in the setting of sepsis #Hypertension -Hold spironolactone, losartan in the setting of severe sepsis and EBEN #Hypothyroidism -Synthroid # radiolucent lesion with sclerotic border at L4 -outpatient follow-up DVT prophylaxis: heparin Full code Requires ongoing inpatient stay due to severe sepsis, EBEN, pyelonephritis, IV antibiotics, expert consultation, and close monitoring of hemodynamics to monitor for and prevent decompensation Quality Stroke Does the patient have a stroke diagnosis?: No VTE Prior VTE?: No VTE Risk Level:: Medical - moderate - high VTE Device Contraindication: Treatment Not Indicated VTE Drug Contraindication: N/A - Med Ordered
[2024-04-28 18:00] LABS: Anion Gap 11 (12-20); Blood Urea Nitrogen 31 mg/dL (9-16); Calcium 7.8 mg/dL (8.4-10.2); Carbon Dioxide 20 mmol/L (22-29); Chloride 110 mmol/L (96-108); Creatinine Clr Calc Pharmacy 16.3; Estimated Glomerular Filt Rate 14; Glucose Random 133 mg/dL (60-115); Potassium 2.8 mmol/L (3.3-5.1); Sodium 138 mmol/L (135-145)
[2024-04-28 18:05] LABS: Creatinine Urine 101.39 mg/dL
[2024-04-28] MEDS: Lactated Ringers 1,000 ML 100 ML IVCONT (18:10)
[2024-04-28] MEDS: Piperacillin Sodium/Tazobactam 4.5 GM in 0.9 % Sodium Chloride 100 ML IV (18:12)
[2024-04-28] MEDS: Heparin Sodium,Porcine 5,000 UNIT/ML VIAL 5000 UNIT SUBCUT (18:12)
[2024-04-28] MEDS: Potassium Chloride/H20 10 MEQ/100 ML PIGGYBACK 100 MEQ IV ×4 (18:21→22:19)
--- NOTE | 2024-04-28 19:20 | PHA.MEDREC ---
Pharmacy Consult ? Medication Reconciliation Pharmacy has completed the medication reconciliation. Patient was recently discharged on 04/10/24 so used discharge packet for med rec. Also went to talk to patient and he confirmed that he is taking what is on the discharge packet. He has finished the course of cefuroxime already. Last dose of medications was yesterday 04/27/24.
[2024-04-28 20:20] LABS: CDiff Gene PCR POSITIVE (Negative)
--- NOTE | 2024-04-28 20:30 | MHC.EDTECH ---
Patient son Kirill provided his number to receive any calls with updates. [phone]. Information provided to NICANOR Gabriel
[2024-04-28] MEDS: Potassium Chloride Packet 20 MEQ PACKET 40 MEQ PO (21:06)
[2024-04-28] MEDS: Magnesium Sulfate/H2O 2 GM/50 ML PIGGYBACK IV (21:06)
[2024-04-28 21:30] LABS: Glucose, Whole Blood 121 mg/dL (60-115)
[2024-04-28 21:50] LABS: CDIFF Internal ctrl Dots and bkg OK (V)
[2024-04-28 21:51] LABS: CDiff Toxin Positive (Negative)
--- NOTE | 2024-04-28 22:16 | PM.EVENT ---
Event Note Date of Service: 04/28/24 Event Note: Patient is positive for C diff gene and toxin. Will add p.o. vancomycin. Contact precautions. Time Spent With Patient Time: Total time managing care of this patient today ____ minutes.
[2024-04-29] VITALS (8 sets, daily range): BP systolic 122–142; BP diastolic 60–83; PULSE 94–110; RESP 14–20; TEMP 36.8–38.1; O2SAT 96–99
[2024-04-29] MEDS: Potassium Chloride Packet 20 MEQ PACKET 40 MEQ PO (00:03)
--- NOTE | 2024-04-29 00:04 | PC.NURSE ---
this rn assumed care of the pt. pt is a&ox4, respirations even and unlabored. pt medicated per oct, pt tolerated well with water. pt noted to have fever, dr. mares aware.
--- NOTE | 2024-04-29 00:11 | MHC.EDTECH ---
This pct assumed care of patient at 2300 ,patient awake ,vitals taken RN Elisa is aware of pt high heart rate and high fever ,1500 ml empty from Patient Estevez catheter ,bedding change and Patient was reposition and boosted up in bed ,Call falcon within Pt reach .
[2024-04-29] MEDS: vancomycin HCL 125 MG CAPSULE PO ×4 (00:20→20:21)
[2024-04-29] MEDS: Acetaminophen 325 MG TABLET 650 MG PO (00:21)
--- NOTE | 2024-04-29 01:28 | MHC.EDTECH ---
Patient was moved into a hospital bed ,vitals taken ,call falcon within pt reach ,no apparent distress noted ,Plan of care continue .
--- NOTE | 2024-04-29 01:30 | PC.NURSE ---
pt is alert and oriented, skin appropriate for ethnicity, respirations even and unlabored, pt denies pain, nolasco cath in place and draining well-abot 200ml of yellow urine currently present in the bag, sinus tach on the monitor pt moved over to a hospital bed for comfort
--- NOTE | 2024-04-29 04:00 | PC.NURSE ---
pt continuos on bending his arm, this is why the fluids are delayed
--- NOTE | 2024-04-29 05:03 | PC.NURSE ---
pt is currently asleep, respirations even and unlabored,
[2024-04-29 05:18] LABS: MANUAL DIFF FLAG NO
[2024-04-29 05:30] LABS: Basophils Absolute Auto 0.2 X10*3/uL (0.0-0.2); Basophils Percent Auto 1.1 % (0-2); Eosinophils Absolute Auto 0.4 X10*3/uL (0.0-0.4); Hematocrit 25.3 % (42.0-52.0); Hemoglobin 8.5 g/dl (14.0-18.0); Imm Gran Abs Auto 0.13 X10*3/uL (0.00-0.03); Imm Gran Pct Auto 0.9 % (0.0-0.4); Lymphocytes Absolute Auto 1.3 X10*3/uL (1.2-4.9); Mean Corpuscular HGB Conc 33.6 g/dl (31.0-36.0); Mean Corpuscular Volume 92.3 fL (80.0-98.0); Mean Platelet Volume 9.4 fL (9.4-12.4); Monocytes Absolute Auto 1.1 X10*3/uL (0.1-1.2); Monocytes Percent Auto 7.3 % (2-11); Neutrophils Absolute Auto 11.6 x10*3/uL (2.0-8.3); Neutrophils Percent Auto 78.7 % (45-73); Platelet Count 430 X10*3/uL (160-400); Red Blood Count 2.74 X10*6/uL (4.60-5.80); Red Cell Distribution Width 15.7 % (11.0-16.0); White Blood Count 14.7 X10*3/uL (4.8-10.8)
[2024-04-29 05:41] LABS: Anion Gap 10 (12-20); Blood Urea Nitrogen 16 mg/dL (9-16); Carbon Dioxide 20 mmol/L (22-29); Chloride 113 mmol/L (96-108); Creatinine Clr Calc Pharmacy 40.7; Estimated Glomerular Filt Rate 39; Glucose Random 95 mg/dL (60-115); Potassium 3.4 mmol/L (3.3-5.1); Sodium 140 mmol/L (135-145)
[2024-04-29] MEDS: Heparin Sodium,Porcine 5,000 UNIT/ML VIAL 5000 UNIT SUBCUT ×2 (05:59→17:18)
[2024-04-29] MEDS: Piperacillin Sodium/Tazobactam 4.5 GM in 0.9 % Sodium Chloride 100 ML IV ×2 (05:59→17:19)
--- NOTE | 2024-04-29 06:26 | MHC.EDTECH ---
Patient was assisted unto bedpan ,had moderate liquid bowel movement care given .
[2024-04-29 07:44] LABS: Magnesium 1.7 mg/dL (1.6-2.6)
[2024-04-29 11:14] LABS: Adenovirus F 40/41 Not Detected (Not Detect.); Astrovirus Not Detected (Not Detect.); Campylobacter Not Detected (Not Detect.); Cryptosporidium Not Detected (Not Detect.); Cyclospora cayetanensis Not Detected (Not Detect.); E. coli EAEC Not Detected (Not Detect.); E. coli EPEC Not Detected (Not Detect.); E. coli ETEC Not Detected (Not Detect.); E. coli STEC Not Detected (Not Detect.); Entamoeba histolytica Not Detected (Not Detect.); Giardia lamblia Not Detected (Not Detect.); Norovirus GI/GII Not Detected (Not Detect.); Plesiomonas shigelloides Not Detected (Not Detect.); Rotavirus A Not Detected (Not Detect.); Salmonella Not Detected (Not Detect.); Sapovirus Not Detected (Not Detect.); Shigella sp./EIEC Not Detected (Not Detect.); Vibrio Not Detected (Not Detect.); Vibrio Cholerae Not Detected (Not Detect.); Yersinia enterocolitica Not Detected (Not Detect.)
[2024-04-29] MEDS: Gabapentin 300 MG CAPSULE PO ×3 (11:29→20:21)
[2024-04-29] MEDS: Cholecalciferol (Vitamin D3) 25 MCG TABLET 50 MCG PO (11:29)
[2024-04-29] MEDS: Montelukast Sodium 10 MG TABLET PO (11:29)
[2024-04-29] MEDS: Levothyroxine Sodium 112 MCG TABLET PO (11:30)
[2024-04-29] MEDS: Tamsulosin HCL 0.4 MG CAPSULE PO (11:30)
[2024-04-29] MEDS: Finasteride 5 MG TABLET PO (11:30)
[2024-04-29] MEDS: 0.9 % Sodium Chloride Flush 3 ML SYRINGE IVFLUSH ×2 (11:31→20:23)
--- NOTE | 2024-04-29 11:49 | P.PNIM_ITS ---
Subjective Subjective Date of Service: 04/29/24 Interval History: febrile to 100.6 overnight Cdiff positive c/o diarrhea flank pain improved Review of Systems Review of Systems: Yes all other systems are reviewed and are negative Physical Exam 2 Vital Signs: Vital Signs: Last Vital Signs Temp 99.3 F 04/29/24 06:07 Pulse 104 H 04/29/24 06:07 Resp 20 04/29/24 06:07 BP 128/73 04/29/24 06:07 Pulse Ox 96 04/29/24 06:07 O2 Del Method Room Air 04/29/24 06:07 Oxygen Flow Rate 2 04/28/24 12:09 BMI result Body Mass Index 26.5 Gen: in no acute distress HEENT: sclera anicteric, moist mucus membranes Neck: supple Lungs: clear to auscultation bilaterally Heart: regular rate and rhythm, no murmurs Abd: soft, non-tender, non-distended : Estevez draining clear urine Ext: no edema Skin: warm/well-perfused Neuro: alert and oriented x3, no focal findings Psych: appropriate affect Objective Data Active Medications Acetaminophen (Acetaminophen 325 Mg Tablet) 650 mg PO Q6H PRN PRN Reason: Pain, Mild (Pain Scale 1-3), fever or headache Last Admin: 04/29/24 00:21 Dose: 650 mg Documented By: DEJUAN Calcium Carbonate (Calcium Carbonate 750 Mg Tab.Chew) 750 mg PO Q4H PRN PRN Reason: Heartburn Finasteride (Finasteride 5 Mg Tablet) 5 mg PO DAILY [facility] Last Admin: 04/29/24 11:30 Dose: 5 mg Documented By: LEANNA Gabapentin (Gabapentin 300 Mg Capsule) 300 mg PO TID [facility] Last Admin: 04/29/24 11:29 Dose: 300 mg Documented By: LEANNA Heparin Sodium (Porcine) (Heparin Sodium,Porcine 5,000 Unit/Ml Vial) 5,000 unit SUBCUT Q12H [facility] Last Admin: 04/29/24 05:59 Dose: 5,000 unit Documented By: JEN Lactated Ringer's (Lr) 1,000 mls @ 100 mls/hr IVCONT .Q10H [facility] Last Admin: 04/28/24 18:10 Dose: 100 mls/hr Documented By: CAYETANO Piperacillin Sod/Tazobactam (Sod 4.5 gm/ Sodium Chloride) 100 mls @ 200 mls/hr IV Q12H [facility] Last Admin: 04/29/24 05:59 Dose: 200 mls/hr Documented By: JEN Levothyroxine Sodium (Levothyroxine Sodium 112 Mcg Tablet) 112 mcg PO DAILY@0600 [facility] Last Admin: 04/29/24 11:30 Dose: 112 mcg Documented By: LEANNA Magnesium Hydroxide (Milk Of Magnesia 30 Ml Oral.Susp) 30 ml PO DAILY PRN PRN Reason: Constipation Melatonin (Melatonin 3 Mg Tablet) 6 mg PO BEDTIME PRN PRN Reason: Insomnia Montelukast Sodium (Montelukast Sodium 10 Mg Tablet) 10 mg PO DAILY [facility] Last Admin: 04/29/24 11:29 Dose: 10 mg Documented By: LEANNA Omeprazole (Omeprazole 40 Mg Capsule.Dr) 40 mg PO DAILY@0630 [facility] Sodium Chloride (0.9 % Sodium Chloride Flush 3 Ml Syringe) 3 ml IVFLUSH QSHIFT [facility] Last Admin: 04/29/24 11:31 Dose: 3 ml Documented By: LEANNA Tamsulosin HCl (Tamsulosin Hcl 0.4 Mg Capsule) 0.4 mg PO DAILY [facility] Last Admin: 04/29/24 11:30 Dose: 0.4 mg Documented By: LEANNA Vancomycin HCl (Vancomycin Hcl 125 Mg Capsule) 125 mg PO Q6H [facility] Last Admin: 04/29/24 06:00 Dose: 125 mg Documented By: JEN Vitamin D (Cholecalciferol (Vitamin D3) 25 Mcg Tablet) 50 mcg PO DAILY [facility] Last Admin: 04/29/24 11:29 Dose: 50 mcg Documented By: LEANNA Labs 04/29/24 04:17 04/29/24 04:17 Labs: Laboratory Results - last 24 hr 04/28/24 04/28/24 04/28/24 12:24 12:26 12:32 MCV 90.5 MCH 30.9 MCHC 34.1 RDW 15.5 Plt Count 434 H D MPV 9.2 L Immature Gran % (Auto) 0.8 H Neut % (Auto) 85.3 H Lymph % (Auto) 5.8 L [place] % (Auto) 7.5 Eos % (Auto) 0.2 Baso % (Auto) 0.4 Lymph # (Auto) 1.0 L [place] # (Auto) 1.2 Eos # (Auto) 0.0 Baso # (Auto) 0.1 Abs Immat Gran (auto) 0.14 H Absolute Neuts (auto) 14.1 H Absolute Nucleated RBC 0.000 Nucleated RBC % (auto) 0.0 PT 13.8 H INR 1.2 H APTT 25.8 L VBG pH 7.38 VBG pCO2 31 VBG pO2 47 VBG HCO3 19 L VBG O2 Saturation 79.0 VBG Base Excess -5.0 Anion Gap 12 Estim Creat Clear Calc 11.9 Estimated GFR 9 POC Glucose Random Glucose 149 H Lactic Acid 2.3 H* Lactic Acid F/U @ 2Hr Calcium 7.8 L Magnesium 1.5 L Total Bilirubin 0.5 Direct Bilirubin 0.3 AST 34 ALT 40 Alkaline Phosphatase 106 Ammonia 35 Troponin I High Sens 16.1 D C-Reactive Protein 19.31 H B-Natriuretic Peptide 29 Total Protein 6.3 L Albumin 3.2 L Lipase 13 TSH 4.68 H Free T4 0.96 Urine Color Urine Appearance Urine pH Ur Specific [place] Urine Protein Urine Glucose (UA) Urine Ketones Urine Blood Urine Nitrite Ur Leukocyte Esterase Urine RBC Urine WBC Ur Squamous Epith Cells Urine Bacteria Hyaline Casts Urine Yeast Ur Random Sodium Urine Creatinine Stl C. cayetanensis PCR Stool Rotavirus A PCR Stl Adenov F 40/41 PCR Stool Astrovirus (PCR) Stool Campylobacter PCR Stool Cryptosporidium PCR Stl Sh Tox Pr E STEC PCR Stool E coli O157 PCR Stl Enterotoxigenic E PCR Stool EPEC (PCR) Stool EAEC (PCR) Stl E. histolytica PCR Stool Giardia Lamblia PCR Stl P. shigelloides PCR Stool Salmonella PCR Stool Sapovirus (PCR) Stl Shigella/EIEC PCR St Y.enterocolitica PCR Stool Vibrio (PCR) Stl Vibrio cholerae PCR Stl Norovirus GI/GII PCR C. difficile Tox B Gene C. difficile Toxin A&B C. difficile Interpret Influenza Type A (PCR) Influenza Type B (PCR) RSV RNA Qual (PCR) SARS-CoV-2 RNA (RT-PCR) 04/28/24 04/28/24 04/28/24 12:41 12:46 14:51 MCV MCH MCHC RDW Plt Count MPV Immature Gran % (Auto) Neut % (Auto) Lymph % (Auto) [place] % (Auto) Eos % (Auto) Baso % (Auto) Lymph # (Auto) [place] # (Auto) Eos # (Auto) Baso # (Auto) Abs Immat Gran (auto) Absolute Neuts (auto) Absolute Nucleated RBC Nucleated RBC % (auto) PT INR APTT VBG pH VBG pCO2 VBG pO2 VBG HCO3 VBG O2 Saturation VBG Base Excess Anion Gap Estim Creat Clear Calc Estimated GFR POC Glucose 130 H Random Glucose Lactic Acid Lactic Acid F/U @ 2Hr 0.9 Calcium Magnesium Total Bilirubin Direct Bilirubin AST ALT Alkaline Phosphatase Ammonia Troponin I High Sens C-Reactive Protein B-Natriuretic Peptide Total Protein Albumin Lipase TSH Free T4 Urine Color Yellow Urine Appearance Cloudy Urine pH 5.5 Ur Specific [place] 1.010 Urine Protein 30 (1+) H Urine Glucose (UA) Negative Urine Ketones Negative Urine Blood Moderate (2+) H Urine Nitrite Negative Ur Leukocyte Esterase Moderate (2+) H Urine RBC 3-5 H Urine WBC 11-20 Ur Squamous Epith Cells 0-2 Urine Bacteria None Seen Hyaline Casts 0-2 Urine Yeast Present Ur Random Sodium 51.0 Urine Creatinine 101.39 Stl C. cayetanensis PCR Stool Rotavirus A PCR Stl Adenov F 40/41 PCR Stool Astrovirus (PCR) Stool Campylobacter PCR Stool Cryptosporidium PCR Stl Sh Tox Pr E STEC PCR Stool E coli O157 PCR Stl Enterotoxigenic E PCR Stool EPEC (PCR) Stool EAEC (PCR) Stl E. histolytica PCR Stool Giardia Lamblia PCR Stl P. shigelloides PCR Stool Salmonella PCR Stool Sapovirus (PCR) Stl Shigella/EIEC PCR St Y.enterocolitica PCR Stool Vibrio (PCR) Stl Vibrio cholerae PCR Stl Norovirus GI/GII PCR C. difficile Tox B Gene C. difficile Toxin A&B C. difficile Interpret Influenza Type A (PCR) NEGATIVE Influenza Type B (PCR) NEGATIVE RSV RNA Qual (PCR) NEGATIVE SARS-CoV-2 RNA (RT-PCR) NEGATIVE 04/28/24 04/28/24 04/28/24 16:04 19:08 21:24 MCV MCH MCHC RDW Plt Count MPV Immature Gran % (Auto) Neut % (Auto) Lymph % (Auto) [place] % (Auto) Eos % (Auto) Baso % (Auto) Lymph # (Auto) [place] # (Auto) Eos # (Auto) Baso # (Auto) Abs Immat Gran (auto) Absolute Neuts (auto) Absolute Nucleated RBC Nucleated RBC % (auto) PT INR APTT VBG pH VBG pCO2 VBG pO2 VBG HCO3 VBG O2 Saturation VBG Base Excess Anion Gap 11 L Estim Creat Clear Calc 16.3 Estimated GFR 14 POC Glucose 121 H Random Glucose 133 H Lactic Acid Lactic Acid F/U @ 2Hr Calcium 7.8 L Magnesium Total Bilirubin Direct Bilirubin AST ALT Alkaline Phosphatase Ammonia Troponin I High Sens C-Reactive Protein B-Natriuretic Peptide Total Protein Albumin Lipase TSH Free T4 Urine Color Urine Appearance Urine pH Ur Specific [place] Urine Protein Urine Glucose (UA) Urine Ketones Urine Blood Urine Nitrite Ur Leukocyte Esterase Urine RBC Urine WBC Ur Squamous Epith Cells Urine Bacteria Hyaline Casts Urine Yeast Ur Random Sodium Urine Creatinine Stl C. cayetanensis PCR Not Detected Stool Rotavirus A PCR Not Detected Stl Adenov F 40/41 PCR Not Detected Stool Astrovirus (PCR) Not Detected Stool Campylobacter PCR Not Detected Stool Cryptosporidium PCR Not Detected Stl Sh Tox Pr E STEC PCR Not Detected Stool E coli O157 PCR Not applicable Stl Enterotoxigenic E PCR Not Detected Stool EPEC (PCR) Not Detected Stool EAEC (PCR) Not Detected Stl E. histolytica PCR Not Detected Stool Giardia Lamblia PCR Not Detected Stl P. shigelloides PCR Not Detected Stool Salmonella PCR Not Detected Stool Sapovirus (PCR) Not Detected Stl Shigella/EIEC PCR Not Detected St Y.enterocolitica PCR Not Detected Stool Vibrio (PCR) Not Detected Stl Vibrio cholerae PCR Not Detected Stl Norovirus GI/GII PCR Not Detected C. difficile Tox B Gene POSITIVE A* C. difficile Toxin A&B Positive A* C. difficile Interpret SEE NOTE Influenza Type A (PCR) Influenza Type B (PCR) RSV RNA Qual (PCR) SARS-CoV-2 RNA (RT-PCR) 04/29/24 04:17 MCV 92.3 MCH 31.0 MCHC 33.6 RDW 15.7 Plt Count 430 H MPV 9.4 Immature Gran % (Auto) 0.9 H Neut % (Auto) 78.7 H Lymph % (Auto) 9.0 L [place] % (Auto) 7.3 Eos % (Auto) 3.0 Baso % (Auto) 1.1 Lymph # (Auto) 1.3 [place] # (Auto) 1.1 Eos # (Auto) 0.4 Baso # (Auto) 0.2 Abs Immat Gran (auto) 0.13 H Absolute Neuts (auto) 11.6 H Absolute Nucleated RBC 0.000 Nucleated RBC % (auto) 0.0 PT INR APTT VBG pH VBG pCO2 VBG pO2 VBG HCO3 VBG O2 Saturation VBG Base Excess Anion Gap 10 L Estim Creat Clear Calc 40.7 Estimated GFR 39 POC Glucose Random Glucose 95 Lactic Acid Lactic Acid F/U @ 2Hr Calcium 8.0 L Magnesium 1.7 Total Bilirubin Direct Bilirubin AST ALT Alkaline Phosphatase Ammonia Troponin I High Sens C-Reactive Protein B-Natriuretic Peptide Total Protein Albumin Lipase TSH Free T4 Urine Color Urine Appearance Urine pH Ur Specific [place] Urine Protein Urine Glucose (UA) Urine Ketones Urine Blood Urine Nitrite Ur Leukocyte Esterase Urine RBC Urine WBC Ur Squamous Epith Cells Urine Bacteria Hyaline Casts Urine Yeast Ur Random Sodium Urine Creatinine Stl C. cayetanensis PCR Stool Rotavirus A PCR Stl Adenov F 40/41 PCR Stool Astrovirus (PCR) Stool Campylobacter PCR Stool Cryptosporidium PCR Stl Sh Tox Pr E STEC PCR Stool E coli O157 PCR Stl Enterotoxigenic E PCR Stool EPEC (PCR) Stool EAEC (PCR) Stl E. histolytica PCR Stool Giardia Lamblia PCR Stl P. shigelloides PCR Stool Salmonella PCR Stool Sapovirus (PCR) Stl Shigella/EIEC PCR St Y.enterocolitica PCR Stool Vibrio (PCR) Stl Vibrio cholerae PCR Stl Norovirus GI/GII PCR C. difficile Tox B Gene C. difficile Toxin A&B C. difficile Interpret Influenza Type A (PCR) Influenza Type B (PCR) RSV RNA Qual (PCR) SARS-CoV-2 RNA (RT-PCR) Microbiology Microbiology Results: Microbiology 04/28/24 Unknown Urine Culture - Preliminary Urine clean catch - Clean Catch Midstream Culture in progress. Assessment and Plan (1) Colitis: Status: Acute Plan d2 63yo M with hypothyroidism, HTN, mood disorder, peripheral neuropathy with [place] [facility] [place] for septic shock + respiratory failure due to amaya-sensitive E coli bacteremia/pyelonephritis requiring intubation pressors, presenting with inability to urinate + bloody stools, found to have sepsis due to UTI with probably prostatic abscess, EBEN due to postrenal obstruction, and C. difficile colitis severe sepsis due to UTI/prostatic abscess - pip-verenice d2, awaiting BCx/UCx + Urology consultation, lactic acidosis resolved C difficile colitis - isolation, vancomycin PO 04/29-05/09 postrenal EBEN - Cr much improved with Estevez; Urology consult pending; hold losartan anemia of chronic inflammation - H+H stable HTN - hold losartan + spironolactone hypothyroidism - continue LT4 sclerotic L4 lesion - outpt f/u VTE ppx - UFH dispo - TBD In my clinical judgment, the patient requires continued inpatient hospitalization for the following reasons: IV ABX, specialist consultation Total time managing care of this patient today: 45 minutes. Quality Stroke Does the patient have a stroke diagnosis?: No VTE Prior VTE?: No VTE Risk Level:: Medical - moderate - high VTE Device Contraindication: Treatment Not Indicated VTE Drug Contraindication: N/A - Med Ordered
--- NOTE | 2024-04-29 14:13 | MHC.CM.PN ---
Addendum entered by Xenia Hinojosa 04/30/24 08:36: PER [facility], PT IS NOT ACTIVE WITH THEM, HE IS ACTIVE WITH [facility]. RETURN REFERRAL PLACED Addendum entered by Xenia Hinojosa 04/29/24 14:21: PTS SON WAS AT BEDSIDE AND STEPPED OUT TO MEET WITH CM AND RETURNED TO THE ROOM TO GET INFO FROM PT WHEN NEEDED PT LIVES ALONE AND HAS 3 HOURS A DAY OF [facility] [employer] THEY REPORT HE WAS SUPPOSED TO BE GETTING MORE AND CHANGING TO [facility], HOWEVER HAS NOT HEARD BACK FROM THEM PT IS ALSO ACTIVE WITH [facility] PT IS BLIND AND USES A CANE WHEN OUTSIDE, BUT DOES NOT NEED AN AD IN THE HOME PCP: JAMEL PURCELL PT WILL DO A HCP ONCE FEELING BETTER, HE SAYS HE WILL NAME HIS SON, JERMAINE (JOSEPH) KARINA AND HIS NIECE, JUAN GOSS, HIS AGENTS IMM DELIVERED DCP: HOME RESUME [facility] AND [facility] TO TRANSPORT TASK SENT TO [facility] TO FOLLOW UP ON PTS INCREASE IN [facility] Original Note: CM ATTEMPTED TO MEET WITH PT X 2 PT USING [facility]. CM WILL RETURN
--- NOTE | 2024-04-29 14:45 | P.CONNP_ITS ---
History of Present Illness Reason for Consult Consult date: 04/29/24 Chief Complaint Chief complaint: pyrlonephritis,sepsis colitis History of Present Illness Narrative: 63-year-old male with pertinent history of hypothyroidism, hypertension, mood disorder, peripheral neuropathy presented to the ED earlier today for evaluation of generalized weakness and subjective fevers ongoing for several days. recent admission 04/01-04/10 for septic shock/respiratory failure requiring intubation for pyelonephritis, was discharged on x3 weeks ceftin which he took as prescribed. he was discharged wtih a nolasco, this was removed 5 days prior to re-admission on 04/28; he reports difficulty with urination upon removal of nolasco catheter, also reports watery diarrhea for several days. Returned to the ED on 04/28 for difficulty urinating/emptying bladder. on admission, his creatinine was 6.06 (previously 0.98 on last discharge on 04/10/24) CT scan revealed bilateral hydronephrosis, pyelonephritis and ureteritis, in addition to massively enlarged prostate gland with prostatic abscess. pt also diagnosed wtih cdiff colitis and on vancomycin PO for management he is takign IV antibiotics for UTI and prostatic abscess nolasco catheter was inserted, and pt has since had significant improvement in his creatinine level, now down to 1.7. losartan is being held and urology has been consulted. Review of Systems Denies dizziness Cardiovascular: Denies dyspnea Comments: reports loewr extremity edema improving significantly Respiratory: Denies dyspnea Gastrointestinal: Denies abdominal pain and Reports diarrhea (reports improving) Genitourinary: Denies flank pain Comments: nolasco catheter in place Denies dizziness PMFSH Past Medical History Medical History Eczema of both external ears Major depression, recurrent Legally blind Asthma HTN (hypertension) Social History Social History Household Members: None Housing: Apartment Patient Tobacco Use Status: Never used Tobacco Tobacco use type: Cigarette Cigarettes Per Day: 2 e-Cigarette/Vaping Use: Never Used Advance Directives: No Advance Directives Information Provided: Yes Do you have a plan to hurt others: No Plan Nutrition Risks: Acute nausea or vomiting x1 week service: No Current occupational status: disabled Cognitive needs: No Hearing needs: No Vision needs: 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) Meds Allergies Allergy/AdvReac Type Severity Reaction Status Date / Time No Known Allergies Allergy Verified 04/28/24 12:10 [No Known Allergies*] Active Medications: Current Medications Acetaminophen (Acetaminophen 325 Mg Tablet) 650 mg PO Q6H PRN PRN Reason: Pain, Mild (Pain Scale 1-3), fever or headache Last Admin: 04/29/24 00:21 Dose: 650 mg Calcium Carbonate (Calcium Carbonate 750 Mg Tab.Chew) 750 mg PO Q4H PRN PRN Reason: Heartburn Finasteride (Finasteride 5 Mg Tablet) 5 mg PO DAILY [facility] Last Admin: 04/29/24 11:30 Dose: 5 mg Gabapentin (Gabapentin 300 Mg Capsule) 300 mg PO TID [facility] Last Admin: 04/29/24 11:29 Dose: 300 mg Heparin Sodium (Porcine) (Heparin Sodium,Porcine 5,000 Unit/Ml Vial) 5,000 unit SUBCUT Q12H [facility] Last Admin: 04/29/24 05:59 Dose: 5,000 unit Lactated Ringer's (Lr) 1,000 mls @ 100 mls/hr IVCONT .Q10H [facility] Last Admin: 04/28/24 18:10 Dose: 100 mls/hr Piperacillin Sod/Tazobactam (Sod 4.5 gm/ Sodium Chloride) 100 mls @ 200 mls/hr IV Q12H [facility] Last Admin: 04/29/24 05:59 Dose: 200 mls/hr Levothyroxine Sodium (Levothyroxine Sodium 112 Mcg Tablet) 112 mcg PO DAILY@0600 [facility] Last Admin: 04/29/24 11:30 Dose: 112 mcg Magnesium Hydroxide (Milk Of Magnesia 30 Ml Oral.Susp) 30 ml PO DAILY PRN PRN Reason: Constipation Melatonin (Melatonin 3 Mg Tablet) 6 mg PO BEDTIME PRN PRN Reason: Insomnia Montelukast Sodium (Montelukast Sodium 10 Mg Tablet) 10 mg PO DAILY [facility] Last Admin: 04/29/24 11:29 Dose: 10 mg Omeprazole (Omeprazole 40 Mg Capsule.Dr) 40 mg PO DAILY@0630 [facility] Sodium Chloride (0.9 % Sodium Chloride Flush 3 Ml Syringe) 3 ml IVFLUSH QSHIFT [facility] Last Admin: 04/29/24 11:31 Dose: 3 ml Tamsulosin HCl (Tamsulosin Hcl 0.4 Mg Capsule) 0.4 mg PO DAILY [facility] Last Admin: 04/29/24 11:30 Dose: 0.4 mg Vancomycin HCl (Vancomycin Hcl 125 Mg Capsule) 125 mg PO Q6H [facility] Last Admin: 04/29/24 06:00 Dose: 125 mg Vitamin D (Cholecalciferol (Vitamin D3) 25 Mcg Tablet) 50 mcg PO DAILY [facility] Last Admin: 04/29/24 11:29 Dose: 50 mcg Home Medications ?Medication ?Instructions ?Recorded ?Confirmed ?Last Taken ?Type calcium carbonate 600 mg-vitamin 1 tab PO BID 04/01/24 04/28/24 04/27/24 History D3 10 mcg (400 unit) tablet levothyroxine 112 mcg tablet 112 mcg PO DAILY 04/01/24 04/28/24 04/27/24 History gabapentin 300 mg capsule 300 mg PO TID 04/09/24 04/28/24 04/27/24 History Physical Exam Vital Signs: Last Vital Signs Temp 99.1 F 04/29/24 13:47 Pulse 106 H 04/29/24 13:47 Resp 19 04/29/24 13:47 BP 122/69 04/29/24 13:47 Pulse Ox 97 04/29/24 13:47 O2 Del Method Room Air 04/29/24 13:47 Oxygen Flow Rate 2 04/28/24 12:09 BMI result Body Mass Index 26.5 Const General: no acute distress, alert and awake Orientation/consciousness: oriented to person, oriented to place and oriented to time Neck Neck: Yes no JVD Resp Effort & Inspection: normal respiratory effort and able to speak in complete sentences Auscultation: clear to auscultation bilaterally Cardio Jugular venous distension: no JVD Rate: regular rate Rhythm: regular rhythm Heart sounds: S1 normal heart sound present and S2 normal heart sound present GI Palpation (GI): Soft to palpation and nontender General: Yes no CVA tenderness Back/Spine/Pelvis Back: no CVA tenderness Skin Rashes: no rashes Neuro General: oriented to person, oriented to place and oriented to time Extrem Right upper extremity: edema (trace/+1 pitting edema BLE ) Results Lab Results 04/29/24 04:17 04/29/24 04:17 Lab results: Chemistry 04/28/24 04/28/24 04/29/24 12:24 16:04 04:17 Sodium 137 138 140 Potassium 3.1 L 2.8 L* 3.4 D Carbon Dioxide 20 L 20 L 20 L BUN 37 H 31 H 16 Creatinine 6.06 H* 4.42 H* 1.77 H Calcium 7.8 L 7.8 L 8.0 L Hematology 04/28/24 04/29/24 12:24 04:17 WBC 16.5 H 14.7 H Hgb 8.5 L 8.5 L Plt Count 434 H D 430 H Urinalysis 04/28/24 14:51 Urine Color Yellow Urine Appearance Cloudy Urine pH 5.5 Ur Specific [place] 1.010 Urine Protein 30 (1+) H Urine Glucose (UA) Negative Urine Ketones Negative Urine Blood Moderate (2+) H Urine Nitrite Negative Ur Leukocyte Esterase Moderate (2+) H Urine RBC 3-5 H Urine WBC 11-20 Ur Squamous Epith Cells 0-2 Hyaline Casts 0-2 Urine Studies 04/28/24 14:51 Urine Creatinine 101.39 Assessment and Plan (1) EBEN (acute kidney injury): Status: Acute (2) Pyelonephritis: Status: Acute (3) Sepsis: Qualifiers: Acute renal failure type: unspecified Sepsis acute organ dysfunction status: with acute organ dysfunction Sepsis type: sepsis due to unspecified organism Severe sepsis acute organ dysfunction type: acute renal failure S evere sepsis shock status: without septic shock Qualified Code(s): A41.9 - Sepsis, unspecified organism; R65.20 - Severe sepsis without septic shock; N17.9 - Acute kidney failure, unspecified Status: Acute (4) Prostatic abscess: Status: Acute Plan Pt with EBEN secondary to postrenal obstruction improving with urinary drainage with nolasco catheter insertion, anticipate continued improvement recommend continue with urology consultation to address obstruction suspect low mildly low K and CA from diarrhea will continue to improve as c diff treated chronic anemia, continue to monitor thrombocytopenia is improving, suspect acute phase reactant recommend to continue close I&O monitoring keep intake >output monitor daily weights monitor electrolytes, particularly for hypokalemia, as well as H&H Discussed wt Dr Larsen Procedures Date of Service Date of Service: 04/29/24
--- NOTE | 2024-04-29 15:52 | P.CNUR_ITS ---
History of Present Illness Consult details Consult date: 04/29/24 Narrative: 63 yo male with history of hypothyroidism, legally blind, hypertension, mood disorder, peripheral neuropathy, BPH, history of [place] [facility] [place] for septic shock & respiratory failure requiring intubation, with acute pyelonephritis with pansensitive E coli bacteremia who presents back to the ER for evaluation of fevers that started yesterday along with generalized weakness. He was discharged with plan to be on Ceftin 500 mg b.i.d. for 3 weeks. Patient states he recently had his Nolasco catheter removed and has since been having difficulty urinating. Urology called to evaluated due to prostatic findings on CT. Review of Systems 2 Review of Systems: Yes all other systems are reviewed and are negative Constitutional: Constitutional: Reports no additional constitutional complaints Eyes: Eyes: Reports no additional eye complaints ENT: Reports system reviewed and no additional complaints, except as documented Cardiovascular: Cardiovascular: Reports no additional cardiovascular complaints Respiratory: Respiratory: Reports no additional respiratory complaints Gastrointestinal: Gastrointestinal: Reports no additional gastrointestinal complaints Genitourinary: Genitourinary: Reports as per HPI Musculoskeletal: Musculoskeletal: Reports no additional musculoskeletal complaints Integumentary/Breasts: Skin/Breast: Reports system reviewed and no additional complaints, except as docu Neurologic: Reports system reviewed and no additional complaints, except as documented Psychiatric: Psychiatric: Reports no additional psychiatric complaints Endocrine: Endocrine: Reports no additional endocrine complaints Hematologic/Lymphatic: Hematologic/Lymphatic: Reports no additional hematologic/lymphatic complaints Allergic/Immunologic: Allergic/Immunologic: Reports no additional allergic/immunologic complaints PMFSH Past Medical History Medical History Eczema of both external ears Major depression, recurrent Legally blind Asthma HTN (hypertension) Social History Social History Household Members: None Housing: House Do you presently have visiting nurse or other home services: Yes Patient Tobacco Use Status: Former Tobacco user Tobacco use type: Cigarette Cigarettes Per Day: 2 e-Cigarette/Vaping Use: Never Used service: No Current occupational status: disabled Cognitive needs: No Hearing needs: No Vision needs: 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) Meds Allergies Allergy/AdvReac Type Severity Reaction Status Date / Time No Known Allergies Allergy Verified 04/28/24 12:10 [No Known Allergies*] Active Medications: Current Medications Acetaminophen (Acetaminophen 325 Mg Tablet) 650 mg PO Q6H PRN PRN Reason: Pain, Mild (Pain Scale 1-3), fever or headache Last Admin: 04/29/24 00:21 Dose: 650 mg Calcium Carbonate (Calcium Carbonate 750 Mg Tab.Chew) 750 mg PO Q4H PRN PRN Reason: Heartburn Finasteride (Finasteride 5 Mg Tablet) 5 mg PO DAILY [facility] Last Admin: 04/29/24 11:30 Dose: 5 mg Gabapentin (Gabapentin 300 Mg Capsule) 300 mg PO TID [facility] Last Admin: 04/29/24 15:11 Dose: 300 mg Heparin Sodium (Porcine) (Heparin Sodium,Porcine 5,000 Unit/Ml Vial) 5,000 unit SUBCUT Q12H [facility] Last Admin: 04/29/24 05:59 Dose: 5,000 unit Lactated Ringer's (Lr) 1,000 mls @ 100 mls/hr IVCONT .Q10H [facility] Last Infusion: 04/29/24 15:09 Dose: Infused Piperacillin Sod/Tazobactam (Sod 4.5 gm/ Sodium Chloride) 100 mls @ 200 mls/hr IV Q12H [facility] Last Infusion: 04/29/24 15:10 Dose: Infused Levothyroxine Sodium (Levothyroxine Sodium 112 Mcg Tablet) 112 mcg PO DAILY@0600 [facility] Last Admin: 04/29/24 11:30 Dose: 112 mcg Magnesium Hydroxide (Milk Of Magnesia 30 Ml Oral.Susp) 30 ml PO DAILY PRN PRN Reason: Constipation Melatonin (Melatonin 3 Mg Tablet) 6 mg PO BEDTIME PRN PRN Reason: Insomnia Montelukast Sodium (Montelukast Sodium 10 Mg Tablet) 10 mg PO DAILY [facility] Last Admin: 04/29/24 11:29 Dose: 10 mg Omeprazole (Omeprazole 40 Mg Capsule.Dr) 40 mg PO DAILY@0630 [facility] Sodium Chloride (0.9 % Sodium Chloride Flush 3 Ml Syringe) 3 ml IVFLUSH QSHIFT [facility] Last Admin: 04/29/24 11:31 Dose: 3 ml Tamsulosin HCl (Tamsulosin Hcl 0.4 Mg Capsule) 0.4 mg PO DAILY [facility] Last Admin: 04/29/24 11:30 Dose: 0.4 mg Vancomycin HCl (Vancomycin Hcl 125 Mg Capsule) 125 mg PO Q6H [facility] Last Admin: 04/29/24 15:11 Dose: 125 mg Vitamin D (Cholecalciferol (Vitamin D3) 25 Mcg Tablet) 50 mcg PO DAILY [facility] Last Admin: 04/29/24 11:29 Dose: 50 mcg Home Medications ?Medication ?Instructions ?Recorded ?Confirmed ?Last Taken ?Type calcium carbonate 600 mg-vitamin 1 tab PO BID 04/01/24 04/28/24 04/27/24 History D3 10 mcg (400 unit) tablet levothyroxine 112 mcg tablet 112 mcg PO DAILY 04/01/24 04/28/24 04/27/24 History gabapentin 300 mg capsule 300 mg PO TID 04/09/24 04/28/24 04/27/24 History Physical Exam 2 Vital Signs: Vital Signs: Last Vital Signs Temp 98.8 F 04/29/24 15:26 Pulse 102 H 04/29/24 15:26 Resp 18 04/29/24 15:26 BP 142/83 H 04/29/24 15:26 Pulse Ox 97 04/29/24 15:26 O2 Del Method Room Air 04/29/24 15:26 Oxygen Flow Rate 2 04/28/24 12:09 BMI result Body Mass Index 26.5 Const: General: healthy appearing, no acute distress and well developed O rientation/consciousness: patient oriented x3 HEENT: Head: Yes normocephalic and Yes atraumatic Eyes: Conjunctivae: conjunctivae normal Neck: Neck: Yes normal visual inspection Chest: Chest palpation & inspection: normal inspection of the chest Resp: Effort & Inspection: normal respiratory effort Cardio: Rate: regular rate GI: Inspection: Yes normal to inspection Palpation (GI): Soft to palpation : Other: nolasco in place. Penis: normal penis Scrotum: scrotum normal Neuro: General: patient oriented x3 Psych: Appearance: grossly normal Affect: normal affect Results Labs 04/30/24 05:21 05/02/24 08:08 Labs: Abnormal lab results 04/28/24 04/28/24 04/28/24 Range/Units 16:04 19:08 21:24 WBC (4.8-10.8) X10*3/uL RBC (4.60-5.80) X10*6/uL Hgb (14.0-18.0) g/dl Hct (42.0-52.0) % Plt Count (160-400) X10*3/uL Immature Gran % (Auto) (0.0-0.4) % Neut % (Auto) (45-73) % Lymph % (Auto) (20-40) % Abs Immat Gran (auto) (0.00-0.03) X10*3/uL Absolute Neuts (auto) (2.0-8.3) x10*3/uL Potassium 2.8 L* (3.3-5.1) mmol/L Chloride 110 H (96-108) mmol/L Carbon Dioxide 20 L (22-29) mmol/L Anion Gap 11 L (12-20) BUN 31 H (9-16) mg/dL Creatinine 4.42 H* (0.5-1.4) mg/dL POC Glucose 121 H (60-115) mg/dL Random Glucose 133 H (60-115) mg/dL Calcium 7.8 L (8.4-10.2) mg/dL C. difficile Tox B Gene POSITIVE A* (Negative) C. difficile Toxin A&B Positive A* (Negative) 04/29/24 Range/Units 04:17 WBC 14.7 H (4.8-10.8) X10*3/uL RBC 2.74 L (4.60-5.80) X10*6/uL Hgb 8.5 L (14.0-18.0) g/dl Hct 25.3 L (42.0-52.0) % Plt Count 430 H (160-400) X10*3/uL Immature Gran % (Auto) 0.9 H (0.0-0.4) % Neut % (Auto) 78.7 H (45-73) % Lymph % (Auto) 9.0 L (20-40) % Abs Immat Gran (auto) 0.13 H (0.00-0.03) X10*3/uL Absolute Neuts (auto) 11.6 H (2.0-8.3) x10*3/uL Potassium (3.3-5.1) mmol/L Chloride 113 H (96-108) mmol/L Carbon Dioxide 20 L (22-29) mmol/L Anion Gap 10 L (12-20) BUN (9-16) mg/dL Creatinine 1.77 H (0.5-1.4) mg/dL POC Glucose (60-115) mg/dL Random Glucose (60-115) mg/dL Calcium 8.0 L (8.4-10.2) mg/dL C. difficile Tox B Gene (Negative) C. difficile Toxin A&B (Negative) Short CBC 04/29/24 Range/Units 04:17 WBC 14.7 H (4.8-10.8) X10*3/uL Hgb 8.5 L (14.0-18.0) g/dl Hct 25.3 L (42.0-52.0) % Plt Count 430 H (160-400) X10*3/uL BMP 04/28/24 04/29/24 16:04 04:17 Sodium 138 140 Potassium 2.8 L* 3.4 D Chloride 110 H 113 H Carbon Dioxide 20 L 20 L BUN 31 H 16 Creatinine 4.42 H* 1.77 H Calcium 7.8 L 8.0 L Urine 04/28/24 Range/Units 14:51 Urine Color Yellow Urine Appearance Cloudy Urine pH 5.5 (5.0-9.0) Ur Specific Garrison 1.010 (1.005-1.025) Urine Protein 30 (1+) H (Neg-Trace) mg/dL Urine Glucose (UA) Negative (Negative) mg/dL All other labs normal. Assessment and Plan (1) EBEN (acute kidney injury): Status: Acute (2) Pyelonephritis: Status: Acute (3) Urinary catheter in place: Status: Acute (4) Prostatic abscess: Status: Acute Plan Agree with current IV Abx, proscar and flomax, Cont nolasco, reviewed CT imaging with Dr Powers and at this time prostate finding not ammendable to drainage Procedures Date of Service Date of Service: 05/06/24
[2024-04-29] MEDS: Lactated Ringers 1,000 ML 100 ML IVCONT (16:33)
[2024-04-30] MEDS: Lactated Ringers 1,000 ML 100 ML IVCONT ×2 (00:07→10:26)
[2024-04-30] MEDS: vancomycin HCL 125 MG CAPSULE PO ×4 (02:30→21:36)
[2024-04-30 04:00] VITALS: BP 120/62; PULSE 90; RESP 18; TEMP 36.8; O2SAT 98
[2024-04-30] MEDS: Piperacillin Sodium/Tazobactam 4.5 GM in 0.9 % Sodium Chloride 100 ML IV ×2 (05:54→17:35)
[2024-04-30] MEDS: Heparin Sodium,Porcine 5,000 UNIT/ML VIAL 5000 UNIT SUBCUT ×2 (05:58→17:34)
[2024-04-30] MEDS: Omeprazole 40 MG CAPSULE.DR PO (05:59)
[2024-04-30] MEDS: Levothyroxine Sodium 112 MCG TABLET PO (05:59)
[2024-04-30 06:57] LABS: Anion Gap 10 (12-20); Blood Urea Nitrogen 6 mg/dL (9-16); Calcium 8.1 mg/dL (8.4-10.2); Carbon Dioxide 25 mmol/L (22-29); Chloride 108 mmol/L (96-108); Creatinine Clr Calc Pharmacy 91.3; Estimated Glomerular Filt Rate > 60; Glucose Random 88 mg/dL (60-115); Magnesium 1.4 mg/dL (1.6-2.6); Sodium 140 mmol/L (135-145)
[2024-04-30 07:07] LABS: Hematocrit 24.3 % (42.0-52.0); Hemoglobin 8.5 g/dl (14.0-18.0); Mean Corpuscular Hemoglobin 31.5 pg (27.0-33.0); Mean Platelet Volume 9.2 fL (9.4-12.4); Platelet Count 486 X10*3/uL (160-400); Red Cell Distribution Width 15.9 % (11.0-16.0); White Blood Count 9.9 X10*3/uL (4.8-10.8)
[2024-04-30 07:40] VITALS: BP 159/77; PULSE 88; RESP 18; TEMP 36.4; O2SAT 93
[2024-04-30 08:20] LABS: Potassium 2.7 mmol/L (3.3-5.1)
[2024-04-30] MEDS: Finasteride 5 MG TABLET PO (08:20)
[2024-04-30] MEDS: Gabapentin 300 MG CAPSULE PO ×3 (08:21→21:37)
[2024-04-30] MEDS: Potassium Chloride ER 20 MEQ TAB.ER.PRT 40 MEQ PO (08:21)
[2024-04-30] MEDS: Cholecalciferol (Vitamin D3) 25 MCG TABLET 50 MCG PO (08:21)
[2024-04-30] MEDS: Tamsulosin HCL 0.4 MG CAPSULE PO (08:21)
[2024-04-30] MEDS: Montelukast Sodium 10 MG TABLET PO (08:21)
[2024-04-30] MEDS: Potassium Chloride/H20 10 MEQ/100 ML PIGGYBACK 100 MEQ IV ×4 (08:29→14:16)
--- NOTE | 2024-04-30 09:22 | PC.NURSE ---
Addendum entered by Nan Acuna RN 04/30/24 09:24: Pt has potassium running through a 20 in R forearm, Pt complaining of pain to R arm, upon assessment of R arm IV site noted to be red and swollen, painful to touch, IV infusion paused, IV removed, Nursing tracer bullet section supervisor made aware, Ultrasound guided IV to be attempted. Original Note: This RN notified by [employer] that Pts arm looks swollen, upon assessment of Pts L arm noted to be swollen warm to the touch and painful to Pt, IV fluids currently running at 100mls/ hr through a 20g peripheral IV in L arm, IV fluids stopped, IV removed, warm moist compresses applies to L arm, MD notified.
--- NOTE | 2024-04-30 10:42 | HO.PM.IMPN ---
Subjective Subjective Date of Service: 04/30/24 Interval History: no fever diarrhea improving no abd pain flank pain resolved Review of Systems Review of Systems: Yes all other systems are reviewed and are negative Physical Exam Vital Signs: Vital Signs: Last Vital Signs Temp 97.6 F 04/30/24 07:40 Pulse 88 04/30/24 07:40 Resp 18 04/30/24 07:40 BP 159/77 H 04/30/24 07:40 Pulse Ox 93 04/30/24 07:40 O2 Del Method Room Air 04/30/24 07:40 Oxygen Flow Rate 2 04/28/24 12:09 BMI result Body Mass Index 26.5 Gen: in no acute distress HEENT: sclera anicteric, moist mucus membranes Neck: supple Lungs: clear to auscultation bilaterally Heart: regular rate and rhythm, no murmurs Abd: soft, non-tender, non-distended : Estevez draining clear urine Ext: LUE swollen from infiltrated IV Skin: warm/well-perfused Neuro: alert and oriented x3, no focal findings Psych: appropriate affect Objective Data Active Medications Acetaminophen (Acetaminophen 325 Mg Tablet) 650 mg PO Q6H PRN PRN Reason: Pain, Mild (Pain Scale 1-3), fever or headache Last Admin: 04/29/24 00:21 Dose: 650 mg Documented By: DEJUAN Calcium Carbonate (Calcium Carbonate 750 Mg Tab.Chew) 750 mg PO Q4H PRN PRN Reason: Heartburn Finasteride (Finasteride 5 Mg Tablet) 5 mg PO DAILY [facility] Last Admin: 04/30/24 08:20 Dose: 5 mg Documented By: JAKOB Gabapentin (Gabapentin 300 Mg Capsule) 300 mg PO TID [facility] Last Admin: 04/30/24 08:21 Dose: 300 mg Documented By: JAKOB Heparin Sodium (Porcine) (Heparin Sodium,Porcine 5,000 Unit/Ml Vial) 5,000 unit SUBCUT Q12H [facility] Last Admin: 04/30/24 05:58 Dose: 5,000 unit Documented By: JEFFRY Lactated Ringer's (Lr) 1,000 mls @ 100 mls/hr IVCONT .Q10H [facility] Last Admin: 04/30/24 10:26 Dose: 100 mls/hr Documented By: HOWIE Piperacillin Sod/Tazobactam (Sod 4.5 gm/ Sodium Chloride) 100 mls @ 200 mls/hr IV Q12H [facility] Last Infusion: 04/30/24 06:24 Dose: Infused Documented By: JEFFRY Potassium Chloride (Potassium Chloride/H20) 10 meq in 100 mls @ 100 mls/hr IV Q1H [facility] Stop: 04/30/24 11:44 Last Admin: 04/30/24 10:39 Dose: 100 mls/hr Documented By: HOWIE Levothyroxine Sodium (Levothyroxine Sodium 112 Mcg Tablet) 112 mcg PO DAILY@0600 [facility] Last Admin: 04/30/24 05:59 Dose: 112 mcg Documented By: JEFFRY Magnesium Hydroxide (Milk Of Magnesia 30 Ml Oral.Susp) 30 ml PO DAILY PRN PRN Reason: Constipation Melatonin (Melatonin 3 Mg Tablet) 6 mg PO BEDTIME PRN PRN Reason: Insomnia Montelukast Sodium (Montelukast Sodium 10 Mg Tablet) 10 mg PO DAILY [facility] Last Admin: 04/30/24 08:21 Dose: 10 mg Documented By: JAKOB Omeprazole (Omeprazole 40 Mg Capsule.Dr) 40 mg PO DAILY@0630 [facility] Last Admin: 04/30/24 05:59 Dose: 40 mg Documented By: JEFFRY Sodium Chloride (0.9 % Sodium Chloride Flush 3 Ml Syringe) 3 ml IVFLUSH QSHIFT [facility] Last Admin: 04/30/24 07:10 Dose: Not Given Documented By: HOWIE Non-Admin Reason: IV Running Tamsulosin HCl (Tamsulosin Hcl 0.4 Mg Capsule) 0.4 mg PO DAILY [facility] Last Admin: 04/30/24 08:21 Dose: 0.4 mg Documented By: JAKOB Vancomycin HCl (Vancomycin Hcl 125 Mg Capsule) 125 mg PO Q6H [facility] Last Admin: 04/30/24 08:20 Dose: 125 mg Documented By: JAKOB Vitamin D (Cholecalciferol (Vitamin D3) 25 Mcg Tablet) 50 mcg PO DAILY [facility] Last Admin: 04/30/24 08:21 Dose: 50 mcg Documented By: JAKOB Labs 04/30/24 05:21 04/30/24 05:21 Labs: Laboratory Results - last 24 hr 04/28/24 04/30/24 19:08 05:21 MCV 90.0 MCH 31.5 MCHC 35.0 RDW 15.9 Plt Count 486 H MPV 9.2 L Absolute Nucleated RBC 0.000 Nucleated RBC % (auto) 0.0 Anion Gap 10 L Estim Creat Clear Calc 91.3 Estimated GFR > 60 Random Glucose 88 Calcium 8.1 L Magnesium 1.4 L* Stl C. cayetanensis PCR Not Detected Stool Rotavirus A PCR Not Detected Stl Adenov F 40/41 PCR Not Detected Stool Astrovirus (PCR) Not Detected Stool Campylobacter PCR Not Detected Stool Cryptosporidium PCR Not Detected Stl Sh Tox Pr E STEC PCR Not Detected Stool E coli O157 PCR Not applicable Stl Enterotoxigenic E PCR Not Detected Stool EPEC (PCR) Not Detected Stool EAEC (PCR) Not Detected Stl E. histolytica PCR Not Detected Stool Giardia Lamblia PCR Not Detected Stl P. shigelloides PCR Not Detected Stool Salmonella PCR Not Detected Stool Sapovirus (PCR) Not Detected Stl Shigella/EIEC PCR Not Detected St Y.enterocolitica PCR Not Detected Stool Vibrio (PCR) Not Detected Stl Vibrio cholerae PCR Not Detected Stl Norovirus GI/GII PCR Not Detected Microbiology Microbiology Results: Microbiology 04/28/24 Unknown Urine Culture - Preliminary Urine clean catch - Clean Catch Midstream Yeast 04/28/24 12:24 Blood Culture - Preliminary Blood - Venous No growth after 24 hours. 04/28/24 12:24 Blood Culture - Preliminary Blood - Venous No growth after 24 hours. Assessment and Plan (1) Colitis: Status: Acute Plan d3 63yo M with hypothyroidism, HTN, mood disorder, peripheral neuropathy with recent admission [place] [facility] [place]04[place]10/24 for septic shock + respiratory failure due to amaya-sensitive E coli bacteremia/pyelonephritis requiring intubation pressors, presenting with inability to urinate + bloody stools, found to have sepsis due to UTI with probably prostatic abscess, EBEN due to postrenal obstruction, and C. difficile colitis severe sepsis due to UTI/prostatic abscess - pip-verenice d3, awaiting BCx/UCx, lactic acidosis resolved, per Urology no operative drainage indicated hypoK - replete IV/PO, recheck level in AM hypoMg - replete IV, recheck level in AM C difficile colitis - isolation, vancomycin PO 04/29-05/09 postrenal EBEN - Cr much improved with Estevez; Urology consulted; resume losartan anemia of chronic inflammation - H+H stable HTN - held spironolactone; resume losartan today hypothyroidism - continue LT4 sclerotic L4 lesion - outpt f/u VTE ppx - UFH dispo - PT consult In my clinical judgment, the patient requires continued inpatient hospitalization for the following reasons: IV ABX Total time managing care of this patient today: 40 minutes. Quality Stroke Does the patient have a stroke diagnosis?: No VTE Prior VTE?: No VTE Risk Level:: Medical - moderate - high VTE Device Contraindication: Treatment Not Indicated VTE Drug Contraindication: N/A - Med Ordered
[2024-04-30] MEDS: Magnesium Sulfate/H2O 2 GM/50 ML PIGGYBACK IV (11:23)
[2024-04-30] MEDS: Losartan Potassium 50 MG TABLET PO (11:24)
--- NOTE | 2024-04-30 12:38 | P.PNNP_ITS ---
Subjective Subjective Date of Service: 04/30/24 Interval history: 63-year-old with presented with urinary retention and weakness, fatigue on 04/28 recent admission 04/01-04/10 for septic shock 2/2 pyelonephritis he was discharged with a nolasco, after removal he reported difficulty with urination on admission, his creatinine was 6.06 (previously 0.98 on last discharge on 04/10/24) CT scan revealed bilateral hydronephrosis, pyelonephritis and ureteritis, in addition to massively enlarged prostate gland with prostatic abscess. he is taking IV antibiotics for UTI and prostatic abscess nolasco catheter was inserted, and pt has since had significant improvement in his creatinine level, now back to baseline at 0.79. pt with low potassium today of 2.7. Physical Exam 2 Vital Signs: Vital Signs: Last Vital Signs Temp 97.6 F 04/30/24 07:40 Pulse 88 04/30/24 07:40 Resp 18 04/30/24 07:40 BP 159/77 H 04/30/24 07:40 Pulse Ox 93 04/30/24 07:40 O2 Del Method Room Air 04/30/24 07:40 Oxygen Flow Rate 2 04/28/24 12:09 BMI result Body Mass Index 26.5 Const: General: no acute distress, alert and awake O rientation/consciousness: oriented to person, oriented to place and oriented to time Neck: Neck: Yes no JVD Resp: Effort & Inspection: normal respiratory effort and able to speak in complete sentences Auscultation: clear to auscultation bilaterally Cardio: Jugular venous distension: no JVD Rate: regular rate Rhythm: r egular rhythm Heart sounds: S1 normal heart sound present and S2 normal heart sound present GI: Palpation (GI): Soft to palpation and nontender : General: Yes no CVA tenderness Back/Spine/Pelvis: Back: no CVA tenderness Skin: Rashes: no rashes Neuro: General: oriented to person, oriented to place and oriented to time Extrem: Right upper extremity: edema (trace/+1 pitting edema BLE ) Objective Data Labs 04/30/24 05:21 04/30/24 05:21 Labs: Laboratory Results - last 24 hr 04/30/24 05:21 WBC 9.9 RBC 2.70 L Hgb 8.5 L Hct 24.3 L MCV 90.0 MCH 31.5 MCHC 35.0 RDW 15.9 Plt Count 486 H MPV 9.2 L Absolute Nucleated RBC 0.000 Nucleated RBC % (auto) 0.0 Sodium 140 Potassium 2.7 L* D Chloride 108 Carbon Dioxide 25 Anion Gap 10 L BUN 6 L Creatinine 0.79 Estim Creat Clear Calc 91.3 Estimated GFR > 60 Random Glucose 88 Calcium 8.1 L Magnesium 1.4 L* Microbiology Microbiology Results: Microbiology 04/28/24 Unknown Urine clean catch - Clean Catch Midstream Urine Culture - Preliminary Yeast 04/28/24 12:24 Blood - Venous Blood Culture - Preliminary No growth after 24 hours. 04/28/24 12:24 Blood - Venous Blood Culture - Preliminary No growth after 24 hours. Procedures Date of Service Date of Service: 04/30/24 Assessment & Plan Assessment and plan (1) EBEN (acute kidney injury): Status: Acute (2) Pyelonephritis: Status: Acute (3) Hypokalemia: Status: Acute Plan Pt with EBEN secondary to postrenal obstruction improving with urinary drainage with nolasco catheter insertion, anticipate continued improvement recommend continue with urology consultation to address obstruction potassium low today, likely due to continued post-obstructive diuresis, recommend electrolyte replacement as needed. suspect electrolyte abnormalities will resolve as post-obstructive diuresis slows. chronic anemia, continue to monitor thrombocytopenia is improving, suspect acute phase reactant recommend to continue close I&O monitoring keep intake >output monitor daily weights monitor electrolytes, particularly for hypokalemia, as well as H&H Discussed [facility] Dr Larsen Time Spent With Patient Time: Total time managing care of this patient today ____ minutes. Progress Note: Quality Stroke Does the patient have a stroke diagnosis?: No
[2024-04-30 15:39] VITALS: BP 135/77; PULSE 98; RESP 18; TEMP 36.7; O2SAT 98
[2024-04-30 19:51] VITALS: BP 139/71; PULSE 80; RESP 16; TEMP 36.8; O2SAT 98
[2024-04-30] MEDS: 0.9 % Sodium Chloride Flush 3 ML SYRINGE IVFLUSH (23:52)
[2024-05-01 02:57] VITALS: BP 143/68; PULSE 98; RESP 16; TEMP 37.1; O2SAT 97
[2024-05-01] MEDS: vancomycin HCL 125 MG CAPSULE PO ×4 (03:22→20:00)
[2024-05-01] MEDS: Piperacillin Sodium/Tazobactam 4.5 GM in 0.9 % Sodium Chloride 100 ML IV ×2 (05:10→18:05)
[2024-05-01] MEDS: Omeprazole 40 MG CAPSULE.DR PO (05:11)
[2024-05-01] MEDS: Levothyroxine Sodium 112 MCG TABLET PO (05:12)
[2024-05-01] MEDS: Heparin Sodium,Porcine 5,000 UNIT/ML VIAL 5000 UNIT SUBCUT ×2 (05:12→18:04)
[2024-05-01 07:39] VITALS: BP 163/85; PULSE 86; RESP 16; TEMP 36.7; O2SAT 98
[2024-05-01 08:06] LABS: Anion Gap 12 (12-20); Blood Urea Nitrogen 4 mg/dL (9-16); Calcium 8.3 mg/dL (8.4-10.2); Carbon Dioxide 25 mmol/L (22-29); Chloride 106 mmol/L (96-108); Creatinine Clr Calc Pharmacy 93.7; Estimated Glomerular Filt Rate > 60; Glucose Random 82 mg/dL (60-115); Magnesium 1.7 mg/dL (1.6-2.6); Potassium 3.2 mmol/L (3.3-5.1); Sodium 140 mmol/L (135-145)
[2024-05-01] MEDS: Cholecalciferol (Vitamin D3) 25 MCG TABLET 50 MCG PO (09:34)
[2024-05-01] MEDS: Montelukast Sodium 10 MG TABLET PO (09:34)
[2024-05-01] MEDS: Tamsulosin HCL 0.4 MG CAPSULE PO (09:34)
[2024-05-01] MEDS: Finasteride 5 MG TABLET PO (09:34)
[2024-05-01 09:35] VITALS: BP 161/84
[2024-05-01] MEDS: Losartan Potassium 50 MG TABLET PO (09:35)
[2024-05-01] MEDS: Potassium Chloride ER 20 MEQ TAB.ER.PRT 40 MEQ PO (09:35)
[2024-05-01] MEDS: Gabapentin 300 MG CAPSULE PO ×3 (09:35→20:00)
[2024-05-01] MEDS: 0.9 % Sodium Chloride Flush 3 ML SYRINGE IVFLUSH ×3 (09:36→20:00)
--- NOTE | 2024-05-01 12:56 | P.PNNP_ITS ---
Subjective Subjective Date of Service: 05/01/24 Interval history: 63-year-old with presented with urinary retention and weakness, fatigue on 04/28 recent admission 04/01-04/10 for septic shock 2/2 pyelonephritis he was discharged with a nolasco, after removal he reported difficulty with urination on admission, his creatinine was 6.06 (previously 0.98 on last discharge on 04/10/24) CT scan revealed bilateral hydronephrosis, pyelonephritis and ureteritis, in addition to massively enlarged prostate gland with prostatic abscess. he is taking IV antibiotics for UTI and prostatic abscess nolasco catheter was inserted, and pt has since had significant improvement in his creatinine level, now back to baseline at 0.77. pt with low potassium today of 3.2, improved from 2.7 yesterday. Physical Exam 2 Vital Signs: Vital Signs: Last Vital Signs Temp 98.0 F 05/01/24 07:39 Pulse 86 05/01/24 07:39 Resp 16 05/01/24 07:39 BP 161/84 H 05/01/24 09:35 Pulse Ox 98 05/01/24 07:39 O2 Del Method Room Air 05/01/24 07:39 Oxygen Flow Rate 2 04/28/24 12:09 BMI result Body Mass Index 26.5 Const: General: no acute distress, alert and awake O rientation/consciousness: oriented to person, oriented to place and oriented to time Neck: Neck: Yes no JVD Resp: Effort & Inspection: normal respiratory effort and able to speak in complete sentences Auscultation: clear to auscultation bilaterally Cardio: Jugular venous distension: no JVD Rate: regular rate Rhythm: r egular rhythm Heart sounds: S1 normal heart sound present and S2 normal heart sound present GI: Palpation (GI): Soft to palpation and nontender : General: Yes no CVA tenderness Back/Spine/Pelvis: Back: no CVA tenderness Skin: Rashes: no rashes Neuro: General: oriented to person, oriented to place and oriented to time Extrem: Right upper extremity: edema (trace/+1 pitting edema BLE ) Objective Data Labs 04/30/24 05:21 05/01/24 05:52 Labs: Laboratory Results - last 24 hr 05/01/24 05:52 Hold Purple Top SEE NOTE Sodium 140 Potassium 3.2 L Chloride 106 Carbon Dioxide 25 Anion Gap 12 BUN 4 L Creatinine 0.77 Estim Creat Clear Calc 93.7 Estimated GFR > 60 Random Glucose 82 Calcium 8.3 L Magnesium 1.7 Microbiology Microbiology Results: Microbiology 04/28/24 Unknown Urine clean catch - Clean Catch Midstream Urine Culture - Final Monique albicans 04/28/24 12:24 Blood - Venous Blood Culture - Preliminary No growth after 48 hours. 04/28/24 12:24 Blood - Venous Blood Culture - Preliminary No growth after 48 hours. Procedures Date of Service Date of Service: 05/01/24 Assessment & Plan Assessment and plan (1) EBEN (acute kidney injury): Status: Acute (2) Pyelonephritis: Status: Acute (3) Hypokalemia: Status: Acute Plan Pt with EBEN secondary to postrenal obstruction improving with urinary drainage with nolasco catheter insertion, anticipate continued improvement recommend continue with urology consultation to address obstruction potassium low today but improved from yesterday, likely due to continued post- obstructive diuresis, recommend electrolyte replacement as needed. suspect electrolyte abnormalities will resolve as post-obstructive diuresis slows. chronic anemia, continue to monitor thrombocytopenia is improving, suspect acute phase reactant recommend to continue close I&O monitoring keep intake >output monitor daily weights monitor electrolytes, particularly for hypokalemia, as well as H&H Discussed wt Dr Larsen Time Spent With Patient Time: Total time managing care of this patient today ____ minutes. Progress Note: Quality Stroke Does the patient have a stroke diagnosis?: No
--- NOTE | 2024-05-01 13:02 | MHC.CM.PN ---
EMR REVIEWED AND PER MD ROUNDS, PT MAY DC HOME TODAY. CM NOTIFIED [facility] OF POSSIBLE DC TODAY. CM WILL CONTINUE TO FOLLOW FOR PLAN.
--- NOTE | 2024-05-01 13:04 | PC.NURSE ---
Pt. is a high fall risk, also DTV, but he stated he can't void if someone is with, asked to stand at the edge of the bed to void, also asked the staff to exit the room otherwise he won't be able to void. Bed alarm turned off, this Nurse is standing outside the door per pt. request.
--- NOTE | 2024-05-01 13:26 | PM.DS ---
DS: Providers Provider Date of Service: 05/02/24 Date of admission: 04/28/24 17:07 Date of discharge: 05/02/24 Primary care physician: Florecita Bettencourt MD Consults: 04/28/24 17:11 Consult to Urology Routine Consulting Provider: [facility] Reason for consultation: Urinary retention, recurrent UTI/pyelonephritis, prostatic abscess 04/28/24 17:14 Consult to Nephrology Routine Consulting Provider: [facility] Reason for consultation: EBEN 04/29/24 15:37 Consult to Urology Routine Consulting Provider: [facility] Reason for consultation: Prostatic abscess DS: Diagnosis Discharge Diagnosis (1) EBEN (acute kidney injury): Status: Acute (2) Pyelonephritis: Status: Acute (3) Hypokalemia: Status: Acute (4) Prostatic abscess: Status: Acute (5) Clostridium difficile colitis: Status: Acute (6) Severe sepsis: Status: Acute (7) Urinary outflow obstruction: Status: Acute DS: Summary Hospital Course Hospital Course: From the history and physical by the admitting hospitalist, JOANNA Crowder, 04/28/24: 63-year-old male with pertinent history of hypothyroidism, hypertension, mood disorder, peripheral neuropathy presented to the ED earlier today for evaluation of generalized weakness and subjective fevers ongoing for several days. He was recently admitted to our facility from 04/01-04/10 due to septic shock and respiratory failure requiring intubation with acute pyelonephritis and ultimately grew pansensitive E coli with bacteremia discharged on Ceftin 500 mg b.i.d. x3 weeks which he reports he is still taking as prescribed. He was discharged with Estevez catheter which was reportedly removed 5 days ago. Upon removal of the for the catheter, he has been having difficulty with urination and has not been fully emptying his bladder. He states for several days he has also had multiple episodes of watery diarrhea. Has not actually checked his temperature but reports chills and sweats. Denies abdominal pain, nausea, vomiting diarrhea, melena, hematochezia, shortness of breath, near-syncope, palpitations, or chest pain. Denies dysuria, hematuria, urgency. Since arrival, has been tachycardic to 120, vital signs otherwise stable except for mild fever of 100.4. He has a leukocytosis of 16.5. Creatinine 6.06, baseline around 1. BUN 37, potassium 3.1, CO2 20. Lactic acid 2.3, repeat 0.9. CRP 19.31. VBG reassuring with pH 7.38, pCO2 31, bicarb 19. Urinalysis with 2+ leukocytes, 2+ blood, 11-20 WBCs and negative bacteria. Urine culture and blood cultures are pending. CT abdomen pelvis shows interval increase in bilateral hydronephrosis and hydroureter is with marked worsening of bilateral perinephric and periureteric inflammatory changes compatible with worsening pyelonephritis and ureteritis. There is also interval development of worsening bilateral perirenal fascia inflammatory changes most severe in the right side. There is also interval development of ascending, lower descending and proximal sigmoid colitis persistent distending and sigmoid colon diverticulitis. Persistent massive enlargement of prostate gland, interval appearance of right prostate transition zone low-density lesion suspicious of prostatic abscess. In the ED, has received IV ceftriaxone and Flagyl as well as 2.3 L IVF. 63yo M with hypothyroidism, HTN, mood disorder, peripheral neuropathy with recent admission to [facility] 04/01-04/10/24 for septic shock + respiratory failure due to amaya-sensitive E coli bacteremia/pyelonephritis requiring intubation pressors, presenting with inability to urinate + bloody stools, found to have sepsis due to UTI with a small prostatic abscess, EBEN due to postrenal obstruction, and C. difficile colitis. He was admitted to the medical-surgical unit. Hospital course by problem: severe sepsis due to UTI/prostatic abscess - He was treated with 3 days of IV piperacillin-tazobactam. Blood and urine cultures negative. Lactic acidosis resolved with fluid resuscitation. Per Urology consultation, no operative drainage indicated. He was discharged on 11 days of cefuroxime based on prior blood and urine cultures from last admission growing amaya-sensitive E. coli. He will need to follow up with [facility] in 2 weeks. C difficile colitis - Diarrhea resolved with PO vancomycin treatment. He was discharged on 11 more days of treatment to coincide with cefuroxime treatment. postrenal EBEN bladder outflow obstruction prostate enlargement - Hydroureteronephrosis and massively enlarge prostate noted on scan. Creatinine much improved with Estevez catheter drainage. Uroogy consulted. The patient failed a voiding trial and was discharged with Estevez in place and will follow up with Urology in 2 weeks. hypokalemia hypomagnesemia - Repleted. K 3.1 on discharge; given 40 mEq PO and instructed to resume losartan and spironolactone; BMP will be checked in one week. Time Attestation Discharge Coordination Time (in mins): 45 Quality: Safe Use of Opioids Does Pt have an Active Cancer Diagnosis on the Problem List?: No Quality: Stroke Does the patient have a stroke diagnosis?: No Physical Exam Vital Signs: Vital Signs: Temp Pulse Resp BP Pulse Ox O2 Del Method 98.6 F 88 18 168/89 H 95 Room Air 05/02/24 07:52 05/02/24 07:52 05/02/24 07:52 05/02/24 07:52 05/02/24 07:52 05/02/24 07:52 Gen: in no acute distress HEENT: sclera anicteric, moist mucus membranes Neck: supple Lungs: clear to auscultation bilaterally Heart: regular rate and rhythm, no murmurs Abd: soft, non-tender, non-distended : Estevez draining clear urine Ext: no edema Skin: warm/well-perfused Neuro: alert and oriented x3, no focal findings Psych: appropriate affect DS: Data Data Completed and Pending Completed studies during hospitalization [Text1]: Laboratory Results WBC 9.9 X10*3/uL (4.8-10.8) 04/30/24 05:21 RBC 2.70 X10*6/uL (4.60-5.80) L 04/30/24 05:21 Hgb 8.5 g/dl (14.0-18.0) L 04/30/24 05:21 Hct 24.3 % (42.0-52.0) L 04/30/24 05:21 MCV 90.0 fL (80.0-98.0) 04/30/24 05:21 MCH 31.5 pg (27.0-33.0) 04/30/24 05:21 MCHC 35.0 g/dl (31.0-36.0) 04/30/24 05:21 RDW 15.9 % (11.0-16.0) 04/30/24 05:21 Plt Count 486 X10*3/uL (160-400) H 04/30/24 05:21 MPV 9.2 fL (9.4-12.4) L 04/30/24 05:21 Immature Gran % (Auto) 0.9 % (0.0-0.4) H 04/29/24 04:17 Neut % (Auto) 78.7 % (45-73) H 04/29/24 04:17 Lymph % (Auto) 9.0 % (20-40) L 04/29/24 04:17 Mayes % (Auto) 7.3 % (2-11) 04/29/24 04:17 Eos % (Auto) 3.0 % (0-4) 04/29/24 04:17 Baso % (Auto) 1.1 % (0-2) 04/29/24 04:17 Lymph # (Auto) 1.3 X10*3/uL (1.2-4.9) 04/29/24 04:17 Mayes # (Auto) 1.1 X10*3/uL (0.1-1.2) 04/29/24 04:17 Eos # (Auto) 0.4 X10*3/uL (0.0-0.4) 04/29/24 04:17 Baso # (Auto) 0.2 X10*3/uL (0.0-0.2) 04/29/24 04:17 Abs Immat Gran (auto) 0.13 X10*3/uL (0.00-0.03) H 04/29/24 04:17 Absolute Neuts (auto) 11.6 x10*3/uL (2.0-8.3) H 04/29/24 04:17 Absolute Nucleated RBC 0.000 X10*3/uL (0.0-0.012) 04/30/24 05:21 Nucleated RBC % (auto) 0.0 /100WBC (0.0-0.2) 04/30/24 05:21 Hold Purple Top SEE NOTE 05/02/24 08:08 PT 13.8 SEC (10.9-12.4) H 04/28/24 12:26 INR 1.2 (0.9-1.1) H 04/28/24 12:26 APTT 25.8 SEC (26.0-36.8) L 04/28/24 12:26 VBG pH 7.38 (7.32-7.43) 04/28/24 12:32 VBG pCO2 31 mmHg 04/28/24 12:32 VBG pO2 47 mmHg 04/28/24 12:32 VBG HCO3 19 mmol/L (22-26) L 04/28/24 12:32 VBG O2 Saturation 79.0 % 04/28/24 12:32 VBG Base Excess -5.0 mmol/L 04/28/24 12:32 Sodium 139 mmol/L (135-145) 05/02/24 08:08 Potassium 3.1 mmol/L (3.3-5.1) L 05/02/24 08:08 Chloride 107 mmol/L (96-108) 05/02/24 08:08 Carbon Dioxide 26 mmol/L (22-29) 05/02/24 08:08 Anion Gap 9 (12-20) L 05/02/24 08:08 BUN 3 mg/dL (9-16) L 05/02/24 08:08 Creatinine 0.78 mg/dL (0.5-1.4) 05/02/24 08:08 Estim Creat Clear Calc 92.5 05/02/24 08:08 Estimated GFR > 60 05/02/24 08:08 POC Glucose 121 mg/dL (60-115) H 04/28/24 21:24 Random Glucose 87 mg/dL (60-115) 05/02/24 08:08 Lactic Acid 2.3 mmol/L (0.5-2.0) H* 04/28/24 12:24 Lactic Acid F/U @ 2Hr 0.9 mmol/L (0.5-2.0) 04/28/24 14:51 Calcium 8.8 mg/dL (8.4-10.2) D 05/02/24 08:08 Magnesium 1.7 mg/dL (1.6-2.6) 05/02/24 08:08 Total Bilirubin 0.5 mg/dL (0.0-1.0) 04/28/24 12:24 Direct Bilirubin 0.3 mg/dL (0.0-0.5) 04/28/24 12:24 AST 34 U/L (5-37) 04/28/24 12:24 ALT 40 U/L (0-40) 04/28/24 12:24 Alkaline Phosphatase 106 U/L (39-117) 04/28/24 12:24 Ammonia 35 umol/L (13-55) 04/28/24 12:26 Troponin I High Sens 16.1 ng/L (<3.5-35.0) D 04/28/24 12:24 C-Reactive Protein 3.72 mg/dL (< or = 0.50) H 05/02/24 08:08 B-Natriuretic Peptide 29 pg/mL (<100) 04/28/24 12:24 Total Protein 6.3 g/dL (6.5-8.0) L 04/28/24 12:24 Albumin 3.2 g/dL (3.5-5.0) L 04/28/24 12:24 Lipase 13 U/L (8-78) 04/28/24 12:24 TSH 4.68 uIU/mL (0.32-4.0) H 04/28/24 12:24 Free T4 0.96 ng/dL (0.71-1.85) 04/28/24 12:24 Hold Yellow Top See Note 05/02/24 08:08 Urine Color Yellow 04/28/24 14:51 Urine Appearance Cloudy 04/28/24 14:51 Urine pH 5.5 (5.0-9.0) 04/28/24 14:51 Ur Specific Boone 1.010 (1.005-1.025) 04/28/24 14:51 Urine Protein 30 (1+) mg/dL (Neg-Trace) H 04/28/24 14:51 Urine Glucose (UA) Negative mg/dL (Negative) 04/28/24 14:51 Urine Ketones Negative mg/dL (Negative) 04/28/24 14:51 Urine Blood Moderate (2+) (Negative) H 04/28/24 14:51 Urine Nitrite Negative (Negative) 04/28/24 14:51 Ur Leukocyte Esterase Moderate (2+) (Negative) H 04/28/24 14:51 Urine RBC 3-5 /HPF (0-2) H 04/28/24 14:51 Urine WBC 11-20 /HPF (0-5) 04/28/24 14:51 Ur Squamous Epith Cells 0-2 /HPF (0-2) 04/28/24 14:51 Urine Bacteria None Seen (None Seen) 04/28/24 14:51 Hyaline Casts 0-2 /LPF (0-2) 04/28/24 14:51 Urine Yeast Present 04/28/24 14:51 Ur Random Sodium 51.0 mmol/L 04/28/24 14:51 Urine Creatinine 101.39 mg/dL 04/28/24 14:51 Stl C. cayetanensis PCR Not Detected (Not Detect.) 04/28/24 19:08 Stool Rotavirus A PCR Not Detected (Not Detect.) 04/28/24 19:08 Stl Adenov F 40/41 PCR Not Detected (Not Detect.) 04/28/24 19:08 Stool Astrovirus (PCR) Not Detected (Not Detect.) 04/28/24 19:08 Stool Campylobacter PCR Not Detected (Not Detect.) 04/28/24 19:08 Stool Cryptosporidium PCR Not Detected (Not Detect.) 04/28/24 19:08 Stl Sh Tox Pr E STEC PCR Not Detected (Not Detect.) 04/28/24 19:08 Stool E coli O157 PCR Not applicable (Not Detect.) 04/28/24 19:08 Stl Enterotoxigenic E PCR Not Detected (Not Detect.) 04/28/24 19:08 Stool EPEC (PCR) Not Detected (Not Detect.) 04/28/24 19:08 Stool EAEC (PCR) Not Detected (Not Detect.) 04/28/24 19:08 Stl E. histolytica PCR Not Detected (Not Detect.) 04/28/24 19:08 Stool Giardia Lamblia PCR Not Detected (Not Detect.) 04/28/24 19:08 Stl P. shigelloides PCR Not Detected (Not Detect.) 04/28/24 19:08 Stool Salmonella PCR Not Detected (Not Detect.) 04/28/24 19:08 Stool Sapovirus (PCR) Not Detected (Not Detect.) 04/28/24 19:08 Stl Shigella/EIEC PCR Not Detected (Not Detect.) 04/28/24 19:08 St Y.enterocolitica PCR Not Detected (Not Detect.) 04/28/24 19:08 Stool Vibrio (PCR) Not Detected (Not Detect.) 04/28/24 19:08 Stl Vibrio cholerae PCR Not Detected (Not Detect.) 04/28/24 19:08 Stl Norovirus GI/GII PCR Not Detected (Not Detect.) 04/28/24 19:08 C. difficile Tox B Gene POSITIVE (Negative) A* 04/28/24 19:08 C. difficile Toxin A&B Positive (Negative) A* 04/28/24 19:08 C. difficile Interpret SEE NOTE 04/28/24 19:08 Influenza Type A (PCR) NEGATIVE (Negative) 04/28/24 12:46 Influenza Type B (PCR) NEGATIVE (Negative) 04/28/24 12:46 RSV RNA Qual (PCR) NEGATIVE (Negative) 04/28/24 12:46 SARS-CoV-2 RNA (RT-PCR) NEGATIVE (Negative) 04/28/24 12:46 Impressions Chest X-Ray 04/28/24 12:50 IMPRESSION: Mild bronchial wall thickening suggesting small airways disease. No dense consolidation. Overall improved from prior. Electronically signed by: Tarun Llanes MD 04/28/2024 01:55 PM EDT RP Abdomen/Pelvis CT 04/28/24 13:17 IMPRESSION: 1. Interval increase in bilateral hydronephrosis and hydroureters, marked worsening of bilateral perinephric and periureteric inflammatory changes, compatible with worsening pyelonephritis and ureteritis. 2. Unchanged left upper pole nonobstructive renal calculus. 3. Interval development of worsening of bilateral pararenal fascia inflammatory changes, most severe on the right side. 4. Interval development of ascending, lower descending and proximal sigmoid colitis, persistent descending and sigmoid colon diverticulosis. 5. Interval removal of Estevez catheter, development of massive distention of urinary bladder. 6. Persistent massive enlargement of prostate gland, interval appearance of right prostate transition zone low density lesion suspicious of prostatic abscess. 7. Unchanged large inferior L4 radiolucent lesion with sclerotic border. 8. Unchanged advanced L4-L5 and L5-S1 degenerative lumbar disc disease. 9. Unchanged Bilateral small inguinal hernias containing mesenteric fat. Fleischner guidelines were followed. Electronically signed by: Jazmín Joe MD 04/28/2024 03:32 PM EDT RP Discharge Plan Discharge Anticipated Discharge Date/Time: 05/02/24 09:19 Patient Disposition: Home Health Service Discharge Diagnosis: C. difficile colitis prostatic abscess hypokalemia Referrals: [facility] [Other] - 1 Week Tomasa Mejía MD [Physician] - 2 Weeks Florecita Bettencourt MD [Primary Care Provider] - 1 Week Discharge Medications: New vancomycin 125 mg Capsule 125 mg PO QID Qty: 44 0RF cefuroxime axetil 500 mg tablet 500 mg PO BID Qty: 22 0RF Continued montelukast 10 mg tablet 10 mg PO DAILY Qty: 90 2RF losartan 50 mg tablet 50 mg PO DAILY Qty: 90 2RF spironolactone 50 mg tablet 50 mg PO DAILY 90 Days Qty: 90 1RF cholecalciferol (vitamin D3) 50 mcg (2,000 unit) capsule 50 mcg PO DAILY 90 Days Qty: 90 3RF (DME) Commode See Rx Instructions .Route .MEDSUPPLY Qty: 1 0RF Rx Instructions: As directed (DME) Shower chair w/back See Rx Instructions .Route .MEDSUPPLY Qty: 1 0RF Rx Instructions: As directed levothyroxine 112 mcg tablet 112 mcg PO DAILY calcium carbonate-vitamin D3 600 mg-10 mcg (400 unit) tablet 1 tab PO BID gabapentin 300 mg capsule 300 mg PO TID tamsulosin 0.4 mg Capsule 0.4 mg PO DAILY 90 Days Qty: 90 0RF omeprazole 40 mg Capsule,Delayed Release(Dr/Ec) 40 mg PO DAILY@0630 90 Days Qty: 90 0RF finasteride 5 mg Tablet 5 mg PO DAILY 90 Days Qty: 90 0RF Discharge Orders: Discharge Order (Routine); Ordered 05/02/24 Ordered By: Isidro Mena Diet: Advance to usual diet Activity on Discharge: As tolerated Stand Alone Forms: Patient Portal Discharge page Print Language: Croatian Other Ambulatory Orders: Basic Metabolic Panel (Routine) Timeframe: 1 Week Facility: [facility] - Location: Laboratory Ordered By: Isidro Mena Care Plan Goals: recovery from infections Health Concerns: C. difficile colitis - vancomycin 125 mg 4x a day for 11 days prostatic abscess - cefuroxime 500 mg twice daily for 11 days - leave Estevez in place - follow up with [facility] in 1 week hypokalemia - resume losartan and spironolactone; recheck BMP in 1 week Please follow up with your primary care doctor within 1 week. Return to the hospital if you experience recurrent or worsening symptoms. Plan of Treatment: as above Assessment: See Discharge Summary.
--- NOTE | 2024-05-01 14:02 | P.CDIM_ITS ---
PROVIDER RESPONSE TEXT: To clarify, the appropriate diagnosis supported by the clinical indicators: Hypokalemia: hypokalemia QUERY TEXT: PHYSICIAN'S DOCUMENTATION REQUEST Date of Query: 04/30/2024 09:30 AM EDT Patient Name: Dioni Carr Admit Date: 04/28/2024 Dear Isidro Mena MD, A review of the medical record indicates additional documentation may be needed. Please review below and update the documentation accordingly. Clinical Indicators: LABS: potassium 2.8 L 3.4 2.7 L IV Potassium Chloride Based on the above, is there a diagnosis that correlates with these lab findings: Hypokalemia resolved, possible, probable, suspected etc. Labs indicate a diagnosis of (please specify) Other (explain) Clinically unable to determine (explain) Thank you, Angelita Wade, CCS, CDIS Use of terms such as suspected, likely, concern for, or probable (associated with a specific diagnosi s that is being evaluated, monitored, or treated as if it exists) are acceptable and can be coded in the inpatient se tting, when documented at the time of discharge. Please use your independent medical judgment in providing your response. THIS QUERY IS PART OF THE PERMANENT MEDICAL RECORD
[2024-05-01 15:15] VITALS: BP 140/80; PULSE 93; RESP 16; TEMP 36.2; O2SAT 97
--- NOTE | 2024-05-01 16:37 | PC.NURSE ---
Pt. bladder scan for 534ml post F/C removal, pt. stated that he have no urge to void, updated.
[2024-05-01 19:52] VITALS: BP 134/77; PULSE 95; RESP 16; TEMP 36.6; O2SAT 98
[2024-05-01] MEDS: Melatonin 3 MG TABLET 6 MG PO (23:27)
[2024-05-01] MEDS: Acetaminophen 325 MG TABLET 650 MG PO (23:27)
[2024-05-02] MEDS: vancomycin HCL 125 MG CAPSULE PO ×2 (02:56→08:33)
[2024-05-02] MEDS: traMADoL HCL 50 MG TABLET 25 MG PO (02:56)
[2024-05-02 03:08] VITALS: BP 155/85; PULSE 82; RESP 18; TEMP 36.9; O2SAT 99
[2024-05-02] MEDS: Levothyroxine Sodium 112 MCG TABLET PO (05:33)
[2024-05-02] MEDS: Omeprazole 40 MG CAPSULE.DR PO (05:33)
[2024-05-02] MEDS: Heparin Sodium,Porcine 5,000 UNIT/ML VIAL 5000 UNIT SUBCUT (05:33)
[2024-05-02] MEDS: Piperacillin Sodium/Tazobactam 4.5 GM in 0.9 % Sodium Chloride 100 ML IV (05:39)
[2024-05-02 07:52] VITALS: BP 168/89; PULSE 88; RESP 18; TEMP 37; O2SAT 95
[2024-05-02] MEDS: Cholecalciferol (Vitamin D3) 25 MCG TABLET 50 MCG PO (08:32)
[2024-05-02] MEDS: Losartan Potassium 50 MG TABLET PO (08:32)
[2024-05-02] MEDS: Gabapentin 300 MG CAPSULE PO (08:32)
[2024-05-02] MEDS: Finasteride 5 MG TABLET PO (08:32)
[2024-05-02] MEDS: Montelukast Sodium 10 MG TABLET PO (08:32)
[2024-05-02] MEDS: Tamsulosin HCL 0.4 MG CAPSULE PO (08:32)
[2024-05-02] MEDS: 0.9 % Sodium Chloride Flush 3 ML SYRINGE IVFLUSH (08:36)
[2024-05-02 09:01] LABS: Anion Gap 9 (12-20); Blood Urea Nitrogen 3 mg/dL (9-16); C Reactive Protein 3.72 mg/dL (< or = 0.50); Calcium 8.8 mg/dL (8.4-10.2); Carbon Dioxide 26 mmol/L (22-29); Chloride 107 mmol/L (96-108); Creatinine Clr Calc Pharmacy 92.5; Estimated Glomerular Filt Rate > 60; Glucose Random 87 mg/dL (60-115); Magnesium 1.7 mg/dL (1.6-2.6); Potassium 3.1 mmol/L (3.3-5.1); Sodium 139 mmol/L (135-145)
--- NOTE | 2024-05-02 09:21 | P.PNIM_ITS ---
Subjective Subjective Date of Service: 05/01/24 Interval History: failed voiding trial no fever/chills feeling well otherwise Review of Systems Review of Systems: Yes all other systems are reviewed and are negative Physical Exam 2 Vital Signs: Vital Signs: VS: T 98.0F, P 86, R 16, BP 163/85, Sao2 98 on RA Gen: in no acute distress, blind HEENT: sclera anicteric, moist mucus membranes Neck: supple Lungs: clear to auscultation bilaterally Heart: regular rate and rhythm, no murmurs Abd: soft, non-tender, non-distended Ext: no edema Skin: warm/well-perfused Neuro: alert and oriented x3, no focal findings Psych: appropriate affect Objective Data Active Medications Acetaminophen (Acetaminophen 325 Mg Tablet) 650 mg PO Q6H PRN PRN Reason: Pain, Mild (Pain Scale 1-3), fever or headache Last Admin: 05/01/24 23:27 Dose: 650 mg Documented By: JULIANN Comments: per pt request Calcium Carbonate (Calcium Carbonate 750 Mg Tab.Chew) 750 mg PO Q4H PRN PRN Reason: Heartburn Finasteride (Finasteride 5 Mg Tablet) 5 mg PO DAILY [facility] Last Admin: 05/02/24 08:32 Dose: 5 mg Documented By: EMBER Gabapentin (Gabapentin 300 Mg Capsule) 300 mg PO TID [facility] Last Admin: 05/02/24 08:32 Dose: 300 mg Documented By: EMBER Heparin Sodium (Porcine) (Heparin Sodium,Porcine 5,000 Unit/Ml Vial) 5,000 unit SUBCUT Q12H [facility] Last Admin: 05/02/24 05:33 Dose: 5,000 unit Documented By: JULIANN Piperacillin Sod/Tazobactam (Sod 4.5 gm/ Sodium Chloride) 100 mls @ 200 mls/hr IV Q12H [facility] Last Infusion: 05/02/24 06:10 Dose: Infused Documented By: JULIANN Levothyroxine Sodium (Levothyroxine Sodium 112 Mcg Tablet) 112 mcg PO DAILY@0600 [facility] Last Admin: 05/02/24 05:33 Dose: 112 mcg Documented By: JULIANN Losartan Potassium (Losartan Potassium 50 Mg Tablet) 50 mg PO DAILY [facility]; Protocol Last Admin: 05/02/24 08:32 Dose: 50 mg Documented By: EMBER Magnesium Hydroxide (Milk Of Magnesia 30 Ml Oral.Susp) 30 ml PO DAILY PRN PRN Reason: Constipation Melatonin (Melatonin 3 Mg Tablet) 6 mg PO BEDTIME PRN PRN Reason: Insomnia Last Admin: 05/01/24 23:27 Dose: 6 mg Documented By: JULIANN Montelukast Sodium (Montelukast Sodium 10 Mg Tablet) 10 mg PO DAILY [facility] Last Admin: 05/02/24 08:32 Dose: 10 mg Documented By: EMBER Omeprazole (Omeprazole 40 Mg Capsule.Dr) 40 mg PO DAILY@0630 [facility] Last Admin: 05/02/24 05:33 Dose: 40 mg Documented By: JUILANN Potassium Chloride (Potassium Chloride Er 20 Meq Tab.Er.Prt) 40 meq PO DAILY [facility] Sodium Chloride (0.9 % Sodium Chloride Flush 3 Ml Syringe) 3 ml IVFLUSH QSHIFT [facility] Last Admin: 05/02/24 08:36 Dose: 3 ml Documented By: EMBER Tamsulosin HCl (Tamsulosin Hcl 0.4 Mg Capsule) 0.4 mg PO DAILY [facility] Last Admin: 05/02/24 08:32 Dose: 0.4 mg Documented By: EMBER Vancomycin HCl (Vancomycin Hcl 125 Mg Capsule) 125 mg PO Q6H [facility] Last Admin: 05/02/24 08:33 Dose: 125 mg Documented By: EMBER Vitamin D (Cholecalciferol (Vitamin D3) 25 Mcg Tablet) 50 mcg PO DAILY [facility] Last Admin: 05/02/24 08:32 Dose: 50 mcg Documented By: EMBER Labs 04/30/24 05:21 05/02/24 08:08 Labs: Laboratory Results - last 48 hr 05/01/24 05/02/24 05:52 08:08 Hold Purple Top SEE NOTE SEE NOTE Sodium 140 139 Potassium 3.2 L 3.1 L Chloride 106 107 Carbon Dioxide 25 26 Anion Gap 12 9 L BUN 4 L 3 L Creatinine 0.77 0.78 Estim Creat Clear Calc 93.7 92.5 Estimated GFR > 60 > 60 Random Glucose 82 87 Calcium 8.3 L 8.8 D Magnesium 1.7 1.7 C-Reactive Protein 3.72 H Hold Yellow Top See Note Microbiology Microbiology Results: Microbiology 04/28/24 Unknown Urine Culture - Final Urine clean catch - Clean Catch Midstream Monique albicans Assessment and Plan (1) Colitis: Status: Acute Plan d4 63yo M with hypothyroidism, HTN, mood disorder, peripheral neuropathy with recent admission to [facility] 04/01-04/10/24 for septic shock + respiratory failure due to amaya-sensitive E coli bacteremia/pyelonephritis requiring intubation pressors, presenting with inability to urinate + bloody stools, found to have sepsis due to UTI with probably prostatic abscess, EBEN due to postrenal obstruction, and C. difficile colitis severe sepsis due to UTI/prostatic abscess - pip-verenice d4, awaiting BCx/UCx, lactic acidosis resolved, per Urology no operative drainage indicated, failed voiding trial so will d/c home with cathter and VNA services and Urology f/u for massively enlarged prostate - change to cefuroxime upon discharge for amaya-sensitive E. coli hypoK - replete PO, recheck level in AM hypoMg - repleted C difficile colitis - isolation, vancomycin PO 04/29-05/09 postrenal EBEN - Cr much improved with Estevez; Urology consulted; resume losartan anemia of chronic inflammation - H+H stable HTN - held spironolactone; resumed losartan hypothyroidism - continue LT4 sclerotic L4 lesion - outpt f/u VTE ppx - UFH dispo - PT consulted; plan home with VNA for cathter management In my clinical judgment, the patient requires continued inpatient hospitalization for the following reasons: discharge planning, inability to urinate Total time managing care of this patient today: 35 minutes. Quality Stroke Does the patient have a stroke diagnosis?: No VTE Prior VTE?: No VTE Risk Level:: Medical - moderate - high VTE Device Contraindication: Treatment Not Indicated VTE Drug Contraindication: N/A - Med Ordered
--- NOTE | 2024-05-02 10:08 | HE.CSO ---
called sarabjit as thee was no reaponse in allscripts to notify of pts dc and request to se pt lily as he ws going home with a [facility] dc summary sent thru allscripts as well
[2024-05-02] MEDS: Potassium Chloride ER 20 MEQ TAB.ER.PRT 40 MEQ PO (10:21)
== END 2024-05-02 12:33 | disposition home health service (06) | DRG 872 ==
LOC: HO.ED 13:47 → HO.EDOVER 17:14 → HO.S3 04-29 13:43
PROVIDERS: Physician Assistant; Admitting Provider Physician Assistant; Emergency Provider Emergency Medicine; PCP Internal Medicine; Visit Provider Family Medicine
DX: A41.9 Sepsis, unspecified organism (principal); N17.9 Acute kidney failure, unspecified; N13.6 Pyonephrosis; A04.72 Enterocolitis due to Clostridium difficile, not specified as recurrent; N41.2 Abscess of prostate; I10 Essential (primary) hypertension; R33.9 Retention of urine, unspecified; E87.6 Hypokalemia; E83.42 Hypomagnesemia; D69.6 Thrombocytopenia, unspecified; M89.9 Disorder of bone, unspecified; D64.9 Anemia, unspecified; K57.30 Diverticulosis of large intestine without perforation or abscess without bleeding; H54.8 Legal blindness, as defined in USA; E03.9 Hypothyroidism, unspecified; G62.9 Polyneuropathy, unspecified; R65.20 Severe sepsis without septic shock; Z20.822 Contact with and (suspected) exposure to COVID-19; Z87.440 Personal history of urinary (tract) infections; Z79.890 Hormone replacement therapy; Z79.899 Other long term (current) drug therapy
CPT/HCPCS: 0241U; 36415; 71045; 74176; 80048; 80076; 81001; 82140; 82570; 82803; 82947; 83605; 83690; 83735; 83880; 84300; 84439; 84443; 84484; 85025; 85027; 85610; 85730; 86140; 87040; 87086; 87088; 87324; 87493; 87507; 92950; 93005; 97161; 99285; C1758; J0696; J1644; J1836; J2543; J3475; J3480; J7120

== ENCOUNTER → 2024-04-28 17:07 | Outpatient (BNV) | payer MEDICARE, MEDICAID, SELFPAY | PROVIDERS: Admitting Provider Physician Assistant; Emergency Provider Emergency Medicine; PCP Internal Medicine; Visit Provider Nurse Practitioner Family | DX: N17.9 Acute kidney failure, unspecified (principal); N12 Tubulo-interstitial nephritis, not specified as acute or chronic; E87.6 Hypokalemia | CPT/HCPCS: 99223; 99232 ==

== ENCOUNTER → 2024-04-28 17:07 | Outpatient (BNV) | payer MEDICARE, MEDICAID, SELFPAY | PROVIDERS: Admitting Provider Physician Assistant; Emergency Provider Emergency Medicine; PCP Internal Medicine; Visit Provider Urology | DX: N17.9 Acute kidney failure, unspecified (principal); N12 Tubulo-interstitial nephritis, not specified as acute or chronic; Z96.0 Presence of urogenital implants; N41.2 Abscess of prostate | CPT/HCPCS: 99222 ==

== ENCOUNTER → 2024-04-28 17:07 | Outpatient (BNV) | payer MEDICARE, MEDICAID, SELFPAY | PROVIDERS: Admitting Provider Physician Assistant; Emergency Provider Emergency Medicine; PCP Internal Medicine; Visit Provider Physician Assistant | DX: A41.9 Sepsis, unspecified organism (principal); R65.20 Severe sepsis without septic shock; N17.9 Acute kidney failure, unspecified; N12 Tubulo-interstitial nephritis, not specified as acute or chronic; E87.6 Hypokalemia; N41.2 Abscess of prostate; A04.72 Enterocolitis due to Clostridium difficile, not specified as recurrent; N13.9 Obstructive and reflux uropathy, unspecified; K52.9 Noninfective gastroenteritis and colitis, unspecified | CPT/HCPCS: 99223; 99232; 99239 ==

== ENCOUNTER 2024-06-02 09:53 | Outpatient (AMB) | payer MEDICARE, MEDICAID, SELFPAY ==
--- NOTE | 2024-06-02 10:06 | A.OFFPC_ITS ---
Vital Signs 06/02/24 10:11 Height 5 ft 8 in Weight 156 lb BMI 23.7 BP 138/80 Blood Pressure Location Rt brachial Position Sitting Pulse 90 Pulse Source Pulse Oximeter Pulse Oximetry (%) 97 Oxygen Delivery Method Room Air Intake Visit Reasons: 3 month f/u Allergies No Known Allergies [No Known Allergies*] Allergy (Verified 06/02/24 10:15) Medication List - Last Reconciled 06/02/24 by Florecita Bettencourt MD calcium carbonate-vitamin D3 600 mg-10 mcg (400 unit) 1 tab PO BID cholecalciferol (vitamin D3) 50 mcg PO DAILY 90 days [Commode As directed] finasteride 5 mg PO DAILY 90 days gabapentin 300 mg PO TID levothyroxine 112 mcg PO DAILY losartan 50 mg PO DAILY montelukast 10 mg PO DAILY omeprazole 40 mg PO DAILY@0630 90 days [Shower chair w/back As directed] spironolactone 50 mg PO DAILY 90 days tamsulosin 0.4 mg PO DAILY 90 days Tobacco use date assessed: 06/02/24 Fall risk assessment: No Falls in past year Last assessed Fall Risk: 06/02/24 Dental Screening Dental Screen Date: 06/02/24 Did you have a dental visit in the last 12 months?: No Did you have a dental problem in the last 6 months where you did not have access to dental care?: No Was dental information given to patient?: No HPI 3 month f/u HPI Details Patient is 63-year-old gentleman with a history of hypothyroidism, hypertension, mood disorder, peripheral neuropathy, with recent admissions to [facility] dated April 01 till 04/10/2024 for septic shock plus respiratory failure secondary to E coli bacteremia due to pyelonephritis requiring intubation and pressors. Presented again to emergency room end of April with a chief complaint of inability to urinate +bloody stools. Patient was found to have sepsis due to UTI And EBEN due to post renal obstruction and C diff colitis He was admitted again and was treated with parenteral antibiotics Urology evaluated patient and recommended no operative drainage needed at that time Patient was discharged home with urinary catheter and VNA services He is doing well at this time there is no fever chills there is no nausea vomiting abdominal pain or diarrhea He still have urinary catheter in And has appointment coming up in 2 days with Urology Patient is done with antibiotics With a diagram patient was explained about urinary obstruction He is here with his foundry process engineer who was able to explain patient in Swiss. Patient is blind but can speak and understand Kazakh He is complaining of discomfort in his ears On examination left ear is within normal limit, right ear is blocked with cerumen He was given ear irrigation with good result Continued to have pain both feet, patient was once again instructed not to take any NSAIDs I have sent gabapentin 300 mg t.i.d. for the patient He will return in 3 months for follow-up on that, if needed I will add tramadol at that time. FORMERLY [facility], [facility] Medical History Eczema of both external ears Major depression, recurrent Legally blind Asthma HTN (hypertension) Social History Household Members: None Housing: House Do you presently have visiting nurse or other home services: Yes Patient Tobacco Use Status: Former Tobacco user Tobacco use type: Cigarette Cigarettes Per Day: 2 e-Cigarette/Vaping Use: Never Used service: No Current occupational status: disabled Cognitive needs: No Hearing needs: No Vision needs: 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) Questionnaire Thrive Questionnaire Date Thrive assessed: 06/02/24 I am a: Patient What is your living situation today?: I have a steady place to live Within the past 12 months, did the food you bought not last and you didn't have the money to get more?: Never true Within the past 12 months, did you worry whether your food would run out before you got money to buy more?: Never true Do you have trouble paying for medicines?: Yes Do you have trouble getting transportation to medical appointments?: No Do you have trouble paying your heating and electricity bill?: No Do you have trouble taking care of your child, family member or friend?: No Do you have trouble with day-to-day activities such as bathing, preparing meals, shopping, managing finances, etc.?: Yes Are you currently unemployed and looking for a job?: No Are you interested in more education?: No Please select the resources that you would like help with: None Currently or been in a relationship where the following occur: No concerns reported THRIVE Score: 0 AUDIT C Alcohol Use Questionnaire (AUDIT-C) 1. How often do you have a drink containing alcohol?: Never 3. How often do you have six or more drinks on one occasion?: Never Total Score: 0 Score Reviewed/Action Taken: Yes MINNIE-7 AMB Questionnaire MINNIE-7 Date MINNIE - 7 assessed: 03/03/24 Source: Developed by Drs. Tarun Chance, Bethany Saucedo, Rodriguez Martin and colleagues, with an educational chioma from [employer]. Review of Systems Const Denies chills and Denies fever(s) ENT Denies epistaxis and Denies nasal discharge Card Denies chest pain Resp Denies chest congestion, Denies cough and Denies hemoptysis GI Denies diarrhea and Denies nausea Skin/Breast Denies rash Neuro Reports no additional complaints Psych Reports no additional complaints Endo Reports no additional complaints Physical exam (Primary Care) Vital Signs: Last Vital Signs Pulse 90 06/02/24 10:11 BP 138/80 06/02/24 10:11 Pulse Ox 97 06/02/24 10:11 Oxygen Delivery Method Room Air 06/02/24 10:11 BMI result Body Mass Index 23.7 Tobacco/Smoking Status: Tobacco use Status Tobacco use date assessed 06/02/24 06/02/24 10:16 Patient Tobacco Use Status Former Tobacco user 06/02/24 10:08 Tobacco use type Cigarette 06/02/24 10:08 e-Cigarette/Vaping Use Never Used 06/02/24 10:08 Thrive Assessment: Date of Thrive Assessment Date Thrive assessed 06/02/24 06/02/24 10:16 Currently or been in a relationship where the following occur: No concerns reported Const General: cooperative, comfortable and no acute distress Orientation/consciousness: patient oriented x3 HENMT Head: Yes normocephalic Neck Neck: Yes supple Resp Effort & Inspection: normal respiratory effort, no cough and no stridor Cardio Rhythm: regular rhythm Heart sounds: S1 normal heart sound present and S2 normal heart sound present Skin General skin exam: turgor normal Neuro General: patient oriented x3, tone normal and moves all extremities Extrem Right lower extremity: no edema Left lower extremity: no edema Office Procedures Cerumen Removal From which ear canal was the cerumen removed: right Removal: irrigation Notes: patient tolerated procedure well, no complications and ear canal clear [id number] Irrigation/Lavage Coding Level of Care Code Est Pt Level 4 (17225) Diagnoses Hospital discharge follow-up Z09 Urinary outflow obstruction N13.9 Other specified hypothyroidism E03.8 Chronic anemia D64.9 Bilateral foot pain M79.671; M79.672 Hypertension, essential I10 CPT Codes Office Procedure - CPT: 47204-[id number] Irrigation/Lavage ([id number]) Assessment & Plan Assessment & Plan (1) Hospital discharge follow-up: Code(s): Z09 - Encounter for follow-up examination after completed treatment for conditions other than malignant neoplasm Category: Medical (2) Urinary outflow obstruction: Code(s): N13.9 - Obstructive and reflux uropathy, unspecified Category: Medical (3) Other specified hypothyroidism: Code(s): E03.8 - Other specified hypothyroidism Category: Medical (4) Chronic anemia: Code(s): D64.9 - Anemia, unspecified Category: Medical (5) Bilateral foot pain: Comment: Gabapentin t.i.d. for foot pain Code(s): M79.671 - Pain in right foot; M79.672 - Pain in left foot Category: Medical (6) Hypertension, essential: Code(s): I10 - Essential (primary) hypertension Category: Medical Plan Patient is 63-year-old gentleman with a history of hypothyroidism, hypertension, mood disorder, peripheral neuropathy, with recent admissions to [facility] dated April 01 till 04/10/2024 for septic shock plus respiratory failure secondary to E coli bacteremia due to pyelonephritis requiring intubation and pressors. Presented again to emergency room end of April with a chief complaint of inability to urinate +bloody stools. Patient was found to have sepsis due to UTI And EBEN due to post renal obstruction and C diff colitis He was admitted again and was treated with parenteral antibiotics Urology evaluated patient and recommended no operative drainage needed at that time Patient was discharged home with urinary catheter and VNA services He is doing well at this time there is no fever chills there is no nausea vomiting abdominal pain or diarrhea He still have urinary catheter in And has appointment coming up in 2 days with Urology Patient is done with antibiotics With a diagram patient was explained about urinary obstruction He is here with his foundry process engineer who was able to explain patient in Swiss. Patient is blind but can speak and understand Kazakh He is complaining of discomfort in his ears On examination left ear is within normal limit, right ear is blocked with cerumen He was given ear irrigation with good result Continued to have pain both feet, patient was once again instructed not to take any NSAIDs I have sent gabapentin 300 mg t.i.d. for the patient He will return in 3 months for follow-up on that, if needed I will add tramadol at that time. Medications: New gabapentin 300 mg PO TID 90 caps 0RF
[2024-06-02 10:11] VITALS: BP 138/80; PULSE 90; O2SAT 97; BMI 23.7
== END 2024-06-02 10:45 | disposition home or self-care (01) ==
PROVIDERS: PCP Internal Medicine; Visit Provider Internal Medicine
DX: Z09 Encounter for follow-up examination after completed treatment for conditions other than malignant neoplasm (principal); N13.9 Obstructive and reflux uropathy, unspecified; E03.8 Other specified hypothyroidism; D64.9 Anemia, unspecified; M79.671 Pain in right foot; M79.672 Pain in left foot; I10 Essential (primary) hypertension; H61.21 Impacted cerumen, right ear

== ENCOUNTER → 2024-06-02 09:53 | Outpatient (BNVA) | payer MEDICARE, MEDICAID, SELFPAY | PROVIDERS: PCP Internal Medicine; Visit Provider Internal Medicine | DX: Z09 Encounter for follow-up examination after completed treatment for conditions other than malignant neoplasm (principal); N18.9 Chronic kidney disease, unspecified; H61.21 Impacted cerumen, right ear; E03.8 Other specified hypothyroidism; D64.9 Anemia, unspecified; I10 Essential (primary) hypertension; M79.671 Pain in right foot; M79.672 Pain in left foot | CPT/HCPCS: 69209; 99212 ==

== ENCOUNTER 2024-06-04 10:27 | Outpatient (AMB) | payer MEDICARE, MEDICAID, SELFPAY ==
--- NOTE | 2024-06-04 11:12 | A.OFFVIS_ITS ---
Intake Visit Reasons: 6w/nolasco cath change/ abscess Intake Note: Patient is present for Cath change/Abscess Urology Med: Finasteride, Tamsulosin Antibiotic Allergy:None Allergies No Known Allergies [No Known Allergies*] Allergy (Verified 06/02/24 10:15) HPI Comments Details: Loni is a pleasant male. He is a patient of Dr. Bettencourt. He seen for the following urologic conditions - urinary retention with prostate abscess Here for exchange of Nolasco catheter Prior admission to hospital with prostate abscess - 03/28 Bilateral hydronephrosis Urinary retention Failed voiding trial last month with readmission with pyelonephritis 04/28 Discussed voiding trial today Would like to retained catheter and move ahead with GreenLight laser prostatectomy Will schedule procedure with GreenLight laser, bilateral retrogrades, suprapubic tube PFSH Medical History Eczema of both external ears Major depression, recurrent Legally blind Asthma HTN (hypertension) Social History Household Members: None Housing: House Do you presently have visiting nurse or other home services: Yes Patient Tobacco Use Status: Former Tobacco user Tobacco use type: Cigarette Cigarettes Per Day: 2 e-Cigarette/Vaping Use: Never Used service: No Current occupational status: disabled Cognitive needs: No Hearing needs: No Vision needs: 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) Review of Systems Const Denies chills and Denies fever(s) Card Reports no additional complaints and Denies syncope Resp Denies cough GI Denies abdominal pain and Denies heartburn Reports as per HPI and Denies change in libido Neuro Denies syncope Psych Denies change in libido Endo Denies change in libido Physical Exam Const General: cooperative, healthy appearing, comfortable and no acute distress Orientation/consciousness: patient oriented x3 HEENT Face and sinus: Yes normal facial exam Mouth: moist mucous membranes Neck Neck: Yes normal visual inspection, Yes full ROM and Yes trachea midline Chest Chest palpation & inspection: normal inspection of the chest Resp Effort & Inspection: normal respiratory effort, able to speak in complete sentences and no respiratory distress GI Inspection: Yes normal to inspection Back/Spine/Pelvis Cervical Spine: normal cervical lordosis Thoracic/Lumbar Spine: thoracic and lumbar spine normal to inspection Skin General skin exam: no rashes or lesions noted Neuro General: patient oriented x3, gait normal, tone normal and moves all extremities Extrem General: Yes normal to inspection and Yes capillary refill normal Assessment & Plan Assessment & Plan (1) Urinary retention with incomplete bladder emptying: Code(s): R33.9 - Retention of urine, unspecified Category: Medical (2) Prostatic abscess: Code(s): N41.2 - Abscess of prostate Category: Medical Plan We discussed the nature of the decision and reasonable options for performing a prostate intervention. Interventions include TURP, GreenLight laser enucleation of the prostate, GreenLight laser ablation of the prostate, transurethral incision of the prostate, and I-Tend prostate procedure. Options such as medical therapy were discussed. The relative uncertainties and benefits related to each alternate procedure were adequately discussed. General surgical risks including, but not limited to, pain, bleeding, infection, myocardial infarction, pulmonary embolus, deep vein thrombosis and cerebrovascular accident which may result in further hospitalization were discussed. Full disclosure of the procedure as well as all major risks, benefits and complications were discussed including but not limited to damage to the urethra or bladder neck, recurrent BPH, retrograde ejaculation, bladder infection, urge, de ni frequency, incomplete emptying, dysuria, remote chance of erectile dysfunction, epididymitis, and meatal stenosis. The success rate of the procedure was discussed. Success of the procedure in the short-term does not necessarily guarantee that long-term success will be maintained. Suitable follow up will need to be maintained. The patient showed understanding of discussion. An opportunity was provided for questions to be answered and wishes to proceed with the following procedure. - GreenLight laser prostatectomy Medications: New ascorbic acid (vitamin C) 1 g PO DAILY 90 days 90 tabs 1RF N39.0 - Urinary tract infection, site not specified, R33.9 - Retention of urine, unspecified Patient Instructions: Imaging studies, laboratory and physical exam results were discussed and reviewed in detail. No major barriers to patient understanding were identified. An opportunity to ask questions regarding the treatment plan was provided. All questions were answered. The patient expressed understanding and agreement with the above treatment plan. The patient is aware they should contact our office by phone for worsening of their current condition or the appearance of new urologic symptoms. Compliance is encouraged with any medications and followup testing that is ordered. It is a privilege to participate in the urologic care of your patient. If you have any questions or concerns regarding treatment for the above conditions, or other urologic issues, please do not hesitate to contact me. The office telephone contact is [phone]. This note is constructed using voice recognition software. While every effort has been made to ensure accuracy adding machine mechanic errors may have been included. Yours sincerely, Dr Herbert Powers MD, [facility] - Urology Providers of Expert, Compassionate Care for the Genitourinary System Coding Level of Care Code Est Pt Level 4 (97945) Diagnoses Urinary retention with incomplete bladder emptying R33.9 Prostatic abscess N41.2
== END 2024-06-04 11:59 | disposition home or self-care (01) ==
LOC: HO.HUSH 10:27
PROVIDERS: PCP Internal Medicine; Visit Provider Urology
DX: R33.9 Retention of urine, unspecified (principal); N41.2 Abscess of prostate
CPT/HCPCS: 51702; 99214

== ENCOUNTER → 2024-06-04 10:27 | Outpatient (BNVA) | payer MEDICARE, MEDICAID, SELFPAY | PROVIDERS: PCP Internal Medicine; Visit Provider Urology | DX: R33.9 Retention of urine, unspecified (principal); N41.2 Abscess of prostate | CPT/HCPCS: 51702; 99212 ==

== ENCOUNTER 2024-06-11 21:23 | Emergency (ER) | payer MEDICARE, MEDICAID, SELFPAY ==
[2024-06-11 21:30] VITALS: BP 160/91; BP 160/97; PULSE 101; PULSE 97; RESP 18; TEMP 36.9; O2SAT 100; O2SAT 99; BMI 25.8
[2024-06-11 21:59] LABS: MANUAL DIFF FLAG NO
[2024-06-11 22:01] LABS: Basophils Absolute Auto 0.1 X10*3/uL (0.0-0.2); Basophils Percent Auto 0.5 % (0-2); Eosinophils Absolute Auto 0.1 X10*3/uL (0.0-0.4); Eosinophils Percent Auto 1.1 % (0-4); Hematocrit 35.8 % (42.0-52.0); Hemoglobin 11.8 g/dl (14.0-18.0); Imm Gran Abs Auto 0.03 X10*3/uL (0.00-0.03); Imm Gran Pct Auto 0.3 % (0.0-0.4); Lymphocytes Absolute Auto 0.6 X10*3/uL (1.2-4.9); Lymphocytes Percent Auto 5.1 % (20-40); Mean Corpuscular Hemoglobin 29.4 pg (27.0-33.0); Mean Corpuscular Volume 89.3 fL (80.0-98.0); Mean Platelet Volume 8.8 fL (9.4-12.4); Monocytes Absolute Auto 0.8 X10*3/uL (0.1-1.2); Monocytes Percent Auto 7.1 % (2-11); Neutrophils Absolute Auto 10.2 x10*3/uL (2.0-8.3); Neutrophils Percent Auto 85.9 % (45-73); Platelet Count 403 X10*3/uL (160-400); Red Blood Count 4.01 X10*6/uL (4.60-5.80); Red Cell Distribution Width 14.3 % (11.0-16.0); White Blood Count 11.9 X10*3/uL (4.8-10.8)
--- NOTE | 2024-06-11 22:03 | ED.MALEGU ---
HPI - Male Genitourinary General Chief complaint: Urogenital-Male Stated complaint: nolasco draining slow, abd pain Time Seen by Provider: 06/11/24 22:01 Source: patient Mode of arrival: ambulatory Limitations: no limitations History of Present Illness ED Provider: enrique ACOSTA Narrative: Patient history of prostate abscess in 04/28, hypothyroidism, hypotension, mood disorder, peripheral neuropathy had Nolasco catheter placed last week comes here as it is not draining urine and blood grew E coli which was pansensitive no fever no chills post viral bladder scan showed urine more than 700 cc patient was treated with Ceftin for 3 weeks Related Data Home Medications ?Medication ?Instructions ?Recorded ?Confirmed calcium carbonate 600 mg-vitamin 1 tab PO BID 04/01/24 06/02/24 D3 10 mcg (400 unit) tablet levothyroxine 112 mcg tablet 112 mcg PO DAILY 04/01/24 06/02/24 Previous Rx's ?Medication ?Instructions ?Recorded losartan 50 mg tablet 50 mg PO DAILY #90 tabs 11/18/23 montelukast 10 mg tablet 10 mg PO DAILY #90 tabs 11/18/23 spironolactone 50 mg tablet 50 mg PO DAILY 90 days #90 tabs 02/12/24 cholecalciferol (vitamin D3) 50 50 mcg PO DAILY 90 days #90 caps 04/03/24 mcg (2,000 unit) capsule finasteride 5 mg tablet 5 mg PO DAILY 90 days #90 tabs 04/10/24 omeprazole 40 mg capsule,delayed 40 mg PO DAILY@0630 90 days #90 04/10/24 release caps tamsulosin 0.4 mg capsule 0.4 mg PO DAILY 90 days #90 caps 04/10/24 Commode #1 ea 04/15/24 Shower chair w/back #1 ea 04/15/24 gabapentin 300 mg capsule 300 mg PO TID #90 caps 06/02/24 ascorbic acid (vitamin C) 1,000 mg 1 g PO DAILY 90 days #90 tabs 06/04/24 tablet oxybutynin chloride 5 mg 5 mg PO DAILY 30 days #30 tabs 06/11/24 tablet,extended release 24 hr phenazopyridine 200 mg tablet 200 mg PO TID PRN pain 10 days #30 06/11/24 (Pyridium) tabs cefuroxime axetil 500 mg tablet 500 mg PO BID 21 days #42 tabs 06/12/24 Allergies Allergy/AdvReac Type Severity Reaction Status Date / Time No Known Allergies Allergy Verified 06/11/24 21:32 [No Known Allergies*] Review of Systems Review of Systems: Yes all other systems are reviewed and are negative [facility] Past Medical History Medical History Eczema of both external ears Major depression, recurrent Legally blind Asthma HTN (hypertension) Social History Social History Household Members: None Housing: House Do you presently have visiting nurse or other home services: Yes Alcohol intake: never Patient Tobacco Use Status: Former Tobacco user Tobacco use type: Cigarette Cigarettes Per Day: 2 Smoked in Last 30 Days: No e-Cigarette/Vaping Use: Never Used Use of substances other than those prescribed or required for medical reasons: No Advance Directives: No Advance Directives Information Provided: No Do you have a plan to hurt others: No Plan service: No Current occupational status: disabled Cognitive needs: No Hearing needs: No Vision needs: 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) Physical Exam Vital Signs: Vital Signs: Last Vital Signs Temp 98.4 F 06/11/24 22:04 Pulse 100 06/11/24 22:04 Resp 16 06/11/24 22:04 BP 185/99 H 06/11/24 22:04 Pulse Ox 98 06/11/24 22:04 O2 Del Method Room Air 06/11/24 22:04 BMI result Body Mass Index 25.8 Appearance: Alert. Oriented X3. No acute distress. ENT: Pharynx normal. Oral Mucosa moist Neck: Normal inspection. Neck supple. CVS: Normal heart rate and rhythm. Pulses normal. Respiratory: No respiratory distress. Equal air entry bilateral, no wheezing/rales/rhonchi Abdomen: Soft and nontender. Bowel sounds are present, no mass palpable, no CVA tenderness Skin: Skin warm and dry. Normal skin color. Normal skin turgor. Extremities: No lower extremity edema. No calf tenderness Neuro: Oriented X 3. Medications Administered Discontinued Medications Generic Name Dose Route Start Last Admin Trade Name Freq PRN Reason Stop Dose Admin Cefuroxime Axetil 500 mg 06/11/24 23:44 06/12/24 00:03 Cefuroxime Axetil 500 Mg Tablet PO 06/11/24 23:45 500 mg ONCE ONE Administration Medical Decision Making Medical Decision Making [facility] Narrative: Patient with obstructed Nolasco catheter with history of prostate abscess new 16 Indonesian coude catheter was replaced UA showed nitrite positive will start on cefuroxime for 3 weeks again and advise to follow with urologist Differential Diagnosis Differential Diagnoses: The differential diagnosis associated with the presentation includes Lab Data [facility] Lab Attestation statement: I reviewed the patient's lab results. 06/11/24 21:52 06/11/24 21:52 Labs: Lab Results 06/11/24 06/11/24 Range/Units 21:52 22:35 WBC 11.9 H (4.8-10.8) X10*3/uL RBC 4.01 L D (4.60-5.80) X10*6/uL Hgb 11.8 L D (14.0-18.0) g/dl Hct 35.8 L D (42.0-52.0) % MCV 89.3 (80.0-98.0) fL MCH 29.4 (27.0-33.0) pg MCHC 33.0 (31.0-36.0) g/dl RDW 14.3 (11.0-16.0) % Plt Count 403 H (160-400) X10*3/uL MPV 8.8 L (9.4-12.4) fL Immature Gran % (Auto) 0.3 (0.0-0.4) % Neut % (Auto) 85.9 H (45-73) % Lymph % (Auto) 5.1 L (20-40) % [place] % (Auto) 7.1 (2-11) % Eos % (Auto) 1.1 (0-4) % Baso % (Auto) 0.5 (0-2) % Lymph # (Auto) 0.6 L (1.2-4.9) X10*3/uL [place] # (Auto) 0.8 (0.1-1.2) X10*3/uL Eos # (Auto) 0.1 (0.0-0.4) X10*3/uL Baso # (Auto) 0.1 (0.0-0.2) X10*3/uL Abs Immat Gran (auto) 0.03 (0.00-0.03) X10*3/uL Absolute Neuts (auto) 10.2 H (2.0-8.3) x10*3/uL Absolute Nucleated RBC 0.000 (0.0-0.012) X10*3/uL Nucleated RBC % (auto) 0.0 (0.0-0.2) /100WBC Sodium 140 (135-145) mmol/L Potassium 3.3 (3.3-5.1) mmol/L Chloride 104 (96-108) mmol/L Carbon Dioxide 25 (22-29) mmol/L Anion Gap 14 (12-20) BUN 11 (9-16) mg/dL Creatinine 0.81 (0.5-1.4) mg/dL Estim Creat Clear Calc 83.1 Estimated GFR > 60 Random Glucose 157 H (60-115) mg/dL Calcium 9.5 D (8.4-10.2) mg/dL Total Bilirubin 0.4 (0.0-1.0) mg/dL AST 20 (5-37) U/L ALT 11 (0-40) U/L Alkaline Phosphatase 71 (39-117) U/L Total Protein 7.2 (6.5-8.0) g/dL Albumin 4.0 (3.5-5.0) g/dL Urine Color Dark Yellow Urine Appearance Cloudy Urine pH 6.5 (5.0-9.0) Ur Specific [place] 1.010 (1.005-1.025) Urine Protein Trace (Neg-Trace) mg/dL Urine Glucose (UA) Negative (Negative) mg/dL Urine Ketones Negative (Negative) mg/dL Urine Blood Small (1+) H (Negative) Urine Nitrite Positive H (Negative) Ur Leukocyte Esterase Large (3+) H (Negative) Urine RBC 3-5 H (0-2) /HPF Urine WBC >50 (0-5) /HPF Ur Squamous Epith Cells 0-2 (0-2) /HPF Urine Bacteria Trace (None Seen) Hyaline Casts 0-2 (0-2) /LPF Urine Yeast Present Discharge Plan Discharge Clinical Impression: Urinary tract infection, Encounter for Nolasco catheter replacement Patient Disposition: Home, Self-Care Instructions: Catheter-associated Urinary Tract Infection (ED) Additional Instructions: Care as advised Take antibiotic as prescribed Follow up with your PCP/urologist Prescriptions: New cefuroxime axetil 500 mg tablet 500 mg PO BID 21 Days Qty: 42 0RF No Action montelukast 10 mg tablet 10 mg PO DAILY Qty: 90 2RF losartan 50 mg tablet 50 mg PO DAILY Qty: 90 2RF spironolactone 50 mg tablet 50 mg PO DAILY 90 Days Qty: 90 1RF cholecalciferol (vitamin D3) 50 mcg (2,000 unit) capsule 50 mcg PO DAILY 90 Days Qty: 90 3RF (DME) Commode See Rx Instructions .Route .MEDSUPPLY Qty: 1 0RF Rx Instructions: As directed (DME) Shower chair w/back See Rx Instructions .Route .MEDSUPPLY Qty: 1 0RF Rx Instructions: As directed oxybutynin chloride 5 mg tablet extended release 24hr 5 mg PO DAILY 30 Days Qty: 30 0RF phenazopyridine [Pyridium] 200 mg tablet 200 mg PO TID PRN (Reason: pain) 10 Days Qty: 30 0RF levothyroxine 112 mcg tablet 112 mcg PO DAILY calcium carbonate-vitamin D3 600 mg-10 mcg (400 unit) tablet 1 tab PO BID tamsulosin 0.4 mg Capsule 0.4 mg PO DAILY 90 Days Qty: 90 0RF omeprazole 40 mg Capsule,Delayed Release(Dr/Ec) 40 mg PO DAILY@0630 90 Days Qty: 90 0RF finasteride 5 mg Tablet 5 mg PO DAILY 90 Days Qty: 90 0RF gabapentin 300 mg capsule 300 mg PO TID Qty: 90 0RF ascorbic acid (vitamin C) 1,000 mg tablet 1 g PO DAILY 90 Days Qty: 90 1RF Print Language: Macedonian
[2024-06-11 22:04] VITALS: BP 185/99; PULSE 100; RESP 16; TEMP 36.9; O2SAT 98
[2024-06-11 22:12] LABS: Alanine Aminotransferase 11 U/L (0-40); Alkaline Phosphatase 71 U/L (39-117); Anion Gap 14 (12-20); Aspartate Amino Transferase 20 U/L (5-37); Bilirubin Total 0.4 mg/dL (0.0-1.0); Blood Urea Nitrogen 11 mg/dL (9-16); Calcium 9.5 mg/dL (8.4-10.2); Carbon Dioxide 25 mmol/L (22-29); Chloride 104 mmol/L (96-108); Creatinine Clr Calc Pharmacy 83.1; Estimated Glomerular Filt Rate > 60; Glucose Random 157 mg/dL (60-115); Potassium 3.3 mmol/L (3.3-5.1); Sodium 140 mmol/L (135-145); Total Protein 7.2 g/dL (6.5-8.0)
[2024-06-11 23:10] LABS: Appearance Urine Cloudy; Color Urine Dark Yellow; Glucose Urine UA Negative (Negative); Leukocyte Esterase Urine Large (3+) (Negative); Nitrite Urine Positive (Negative); PH 6.5 (5.0-9.0); UMIC TRIGGER UACC YES; Urine Blood Small (1+) (Negative); Urine Ketones Negative (Negative); Urine Protein Trace mg/dL (Neg-Trace)
[2024-06-11 23:25] LABS: Bacteria Urine Trace (None Seen); Hyaline Casts Urine 0-2 /LPF (0-2); Squamous Epithelial Cell Urine 0-2 /HPF (0-2); UACC Culture Trigger YES; WBC Urine >50 /HPF (0-5)
--- NOTE | 2024-06-11 23:38 | PC.NURSE ---
This RN attempted to change 16 Fr F/C with no success. Dr. Chandler meek MD was able to insert 16 Fr coude catheter with immediate output of 690 mL of cloudy, tea colored urine, urine specimen collected and sent to lab. Patient reports improvement in suprapubic pain from 04/14 to 10/12.
[2024-06-12] MEDS: cefuroxime axetiL 500 MG TABLET PO (00:03)
[2024-06-12 00:52] VITALS: BP 163/92; PULSE 89; RESP 16; TEMP 36.8; O2SAT 98
== END 2024-06-12 00:53 | disposition home or self-care (01) ==
PROVIDERS: Emergency Provider Internal Medicine; PCP Internal Medicine
DX: N39.0 Urinary tract infection, site not specified (principal); Z79.899 Other long term (current) drug therapy; Z87.891 Personal history of nicotine dependence
CPT/HCPCS: 36415; 51798; 80053; 81001; 81003; 85025; 87086; 99283; 99285

== ENCOUNTER 2024-07-06 05:52 | Day surgery (SDC) | payer MEDICARE, MEDICAID, SELFPAY ==
[2024-06-30 11:50] VITALS: BMI 23.7
--- NOTE | 2024-07-01 10:54 | HO.ANESPROP2 ---
Documented by User: Danielle Weems NP 07/01/24 10:58 HPI - Anesthesia Eval Consult details Narrative: 63yo M for Laser Ablation Prostate w/Green Light,with Bilateral Retrogrades,possible suprapubic tube placmenet [facility] admit 04/01-04/10/24 for septic shock + respiratory failure due to amaya-sensitive E coli bacteremia/pyelonephritis requiring intubation pressors, presenting with inability to urinate + bloody stools, found to have sepsis due to UTI with a small prostatic abscess, EBEN due to postrenal obstruction, and C. difficile colitis. He was admitted to the medical-surgical unit. Hospital course by problem: severe sepsis due to UTI/prostatic abscess - He was treated with 3 days of IV piperacillin-tazobactam. Blood and urine cultures negative. Lactic acidosis resolved with fluid resuscitation. Per Urology consultation, no operative drainage indicated. He was discharged on 11 days of cefuroxime based on prior blood and urine cultures from last admission growing amaya-sensitive E. coli. He will need to follow up with [facility] Urology in 2 weeks. C difficile colitis - Diarrhea resolved with PO vancomycin treatment. He was discharged on 11 more days of treatment to coincide with cefuroxime treatment. postrenal EBEN bladder outflow obstruction prostate enlargement - Hydroureteronephrosis and massively enlarge prostate noted on scan. Creatinine much improved with Estevez catheter drainage. Uroogy consulted. The patient failed a voiding trial and was discharged with Estevez in place and will follow up with Urology in 2 weeks. hypokalemia hypomagnesemia - Repleted. K 3.1 on discharge; given 40 mEq PO and instructed to resume losartan and spironolactone; BMP will be checked in one week. PMFSH Active Problems Active Problems: All Active Problems Severe sepsis (Acute) Clostridium difficile colitis (Acute) Hypokalemia (Acute) Prostatic abscess (Acute) Colitis (Acute) Bloody stools (Acute) Urinary outflow obstruction (Acute) Hospital discharge follow-up (Acute) Pyelonephritis due to Escherichia coli (Acute) Urinary retention with incomplete bladder emptying (Acute) Anemia (Acute) Encounter for general adult medical examination with abnormal findings (Acute) Other specified hypothyroidism (Acute) Chronic anemia (Acute) Bilateral foot pain (Acute) Intermittent asthma (Acute) Legally blind (Acute) Palpitations (Acute) Hypertension, essential (Acute) Establishing care with new doctor, encounter for (Acute) Plantar fasciitis, bilateral (Acute) Past Medical History Medical History (Updated 06/30/24 @ 11:52 by Jennifer Solis RN) Palpitations Eczema of both external ears Major depression, recurrent Legally blind Asthma HTN (hypertension) Social History Social History Household Members: None Housing: House Do you presently have visiting nurse or other home services: Yes Alcohol intake: never Patient Tobacco Use Status: Former Tobacco user Tobacco use type: Cigarette Cigarettes Per Day: 2 e-Cigarette/Vaping Use: Never Used Advance Directives: No Advance Directives Information Provided: Yes service: No Current occupational status: disabled Cognitive needs: No Hearing needs: No Vision needs: 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) Meds Allergies Allergy/AdvReac Type Severity Reaction Status Date / Time No Known Allergies Allergy Verified 06/11/24 21:32 [No Known Allergies*] Home Medications ?Medication ?Instructions ?Recorded ?Confirmed ?Last Taken ?Type calcium 600 mg (as 1 tab PO BID 04/01/24 06/30/24 04/27/24 History carbonate)-vitamin D3 10 mcg (400 unit) tablet levothyroxine 112 mcg tablet 112 mcg PO DAILY 04/01/24 06/30/24 04/27/24 History Exam Height,Weight and Vital Signs: Height 5 ft 8 in Weight 70.76 kg Pertinent Lab Results Pertinent Lab Results: Laboratory Tests 06/11/24 21:52 WBC 11.9 H Hgb 11.8 L D Hct 35.8 L D Plt Count 403 H Sodium 140 Potassium 3.3 Chloride 104 Carbon Dioxide 25 BUN 11 Creatinine 0.81 Laboratory Tests 05/02/24 08:08 Magnesium 1.7 Narrative Narrative: EKG 04/2024 (inpt sepsis protocol) Vent. Rate : 119 BPM Atrial Rate : 119 BPM P-R Int : 130 ms QRS Dur : 076 ms QT Int : 316 ms P-R-T Axes : 065 056 022 degrees QTc Int : 444 ms Sinus tachycardia with Premature atrial complexes with Aberrant conduction Abnormal ECG When compared with ECG of 05-APR-2024 08:43, Premature ventricular complexes are no longer Present ECHO 03/2024 Conclusions: - 1. Mildly reduced LV ejection fraction 45-50% with impaired relaxation filling pattern 2. Cardiac valvular Dopplers within normal limits 3. RV systolic pressure can not be accurately determined due to indeterminate right atrial pressures but does not appear to be significantly elevated 4. No gross pericardial effusion Assessment and Plan Assessment Anesthesia Assessment: Chart Reviewed Documented by User: Concetta Garcia MD 07/06/24 07:17 [facility] Past Medical History Medical History (Updated 06/30/24 @ 11:52 by Jennifer Solis RN) Palpitations Eczema of both external ears Major depression, recurrent Legally blind Asthma HTN (hypertension) Family History Family history of problems with anesthesia: No Surgical History History of Problems with Anesthesia: No Social History Social History Household Members: None Housing: House Do you presently have visiting nurse or other home services: Yes Alcohol intake: never Patient Tobacco Use Status: Former Tobacco user Tobacco use type: Cigarette Cigarettes Per Day: 2 e-Cigarette/Vaping Use: Never Used Advance Directives: No Advance Directives Information Provided: Yes service: No Current occupational status: disabled Cognitive needs: No Hearing needs: No Vision needs: 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) Meds Allergies Allergy/AdvReac Type Severity Reaction Status Date / Time No Known Allergies Allergy Verified 06/11/24 21:32 [No Known Allergies*] Home Medications ?Medication ?Instructions ?Recorded ?Confirmed ?Last Taken ?Type calcium 600 mg (as 1 tab PO BID 04/01/24 06/30/24 04/27/24 History carbonate)-vitamin D3 10 mcg (400 unit) tablet levothyroxine 112 mcg tablet 112 mcg PO DAILY 04/01/24 06/30/24 04/27/24 History Exam Airway Mallampati Class: II (minimal mouth opening) TM Dist: >3cm Neck ROM: Full Heart: rrr Lungs: cta Assessment and Plan Assessment Anesthesia Assessment: Anesthesia Plan Discussed Final Anesthetic Review Family History of Problems with Anesthesia: No History of Problems with Anesthesia: No NPO: Yes ASA Class: II Final Preanesthetic Review: No Changes in Pt Med Stat, Meds/Allgs Chart Reviewed and Consent Obtained/Reviewed Patient Risk: Low Procedure Risk: Low Anesthetic Plan Anesthetic Plan: GA Disposition: Standard PACU
[2024-07-06] VITALS (13 sets, daily range): BP systolic 126–149; BP diastolic 77–88; PULSE 85–96; RESP 16; TEMP 36.1–36.7; O2SAT 97–99
--- OUTSIDE RECORDS SUMMARY | 2024-07-06 05:56 | XMS_ITS | Continuity of Care Document ---
Author Organization [facility] Address [address] [place] [id number]- Care Team Providers Care Cavity Pump Operator Name Role Phone Not on Staff, PCP Primary Care Physician Unavail able Encounter [facility] Date(s): 01/03/24 - 05/02/24 [facility] [address] [place] [id number] Attending Physician: Donnie JIMENES, Kyle Fritz Admitting Physician: Donnie JIMENES, Kyle Fritz Referring Physician: Not on Staff, Referring MD Allergies, Adverse Reactions, Alerts No Known Medication Allergies Medications Breo Ellipta 100 mcg-25 mcg/inh inhalation powder 1 puffs, Inhalation, Daily, # 60 Unknown, 8 Refills, [facility], 270, INHALE 1 PUFF BY MOUTH INTO THE lungs DAILY, 170, cm, 07/20/21 8:17:00 EST, Height, 66, kg, 07/19/21 13:21:00 EST, Dry Weight Start Date: 09/20/21 Status: Ordered calcium-vitamin D 600 mg-400 intl units oral tablet 1 tablet, By Mouth, 2 times a day, # 60 tablet, 2 Refills, Maintenance, 04/15/22 14:16:00 EDT, [facility] - [place], [place] - [id number], 30, 1 tablet By Mouth 2 times a day, 170, cm, 01/18/22 12:36:00 EDT, Height, 66, kg, 07/19/21 13:21:00 EST,... Start Date: 04/15/22 Status: Ordered cloNIDine 0.1 mg/24 hr transdermal film, extended release 1 patch, Topically, Daily, CHANGE DAILY ROTATE PLACEMENT, # 90 patch, 1 Refills, Maintenance, 01/17/21 9:19:00 EDT, Patch, [facility] [id number], Partial fill upon patient request if the [...] 5 Refills, Maintenance, 01/22/21 14:24:00 EDT, ECCapsule, [facility] [id number], Partial fill upon patient request if the prescription is for a schedule II opioid drug., 164.3... Start Date: 01/22/21 Stop Date: 07/21/21 Status: Ordered famotidine 40 mg oral tablet 1 tablet = 40 mg, By Mouth, 2 times a day, # 60 tablet, 2 Refills, Maintenance, 01/03/21 15:00:00 EDT, Tablet, [facility]/pharmacy #[id number], Partial fill upon patient request if the prescription is for a schedule II opioid drug., 164.3, cm, 01/03/21 14:30:00 ED... Start Date: 01/03/21 Stop Date: 04/03/21 Status: Ordered ibuprofen 800 mg oral tablet 800 mg, 1, tablet, By Mouth, Daily, PRN, # 30 tablet, Refills 0, Tot. Refills 0, Maintenance, Pain , Moderate, 12/24/21 12:52:00 EDT, Route to Pharmacy Electronically, [facility] [id number], Partial fill upon patient request i... Start Date: 12/24/21 Status: Ordered levothyroxine 0.112 mg oral tablet 1 tablet = 112 mcg, By Mouth, Daily, # 30 tablet, 3 Refills, Maintenance, 12/11/23 12:48:00 EDT, Tablet, [facility] [id number], Partial fill upon patient request if the prescription is for a schedule II opioid drug., 170, cm,... Start Date: 12/11/23 Status: Ordered lisinopril 40 mg oral tablet 1 tablet, By Mouth, Daily, # 90 tablet, 0 Refills, 04/15/22 14:16:00 EDT, [place], [place] - [id number], 170, cm, 01/18/22 12:36:00 EDT, Height, 66, kg, 07/19/21 13:21:00 EST, Dry Weight Start Date: 04/15/22 Status: Ordered montelukast 10 mg oral tablet 1, tablet, By Mouth, Daily, # 90 tablet, Refills 1, Tot. Refills 1, 04/15/22 14:16:00 EDT, Route toPharmacy Electronically, [facility] [id number], 170, cm, 01/18/22 12:36:00EDT, Height, 66, kg, 07/19/21 13:21:00 EST, Dry Weight Start Date: 04/15/22 Status: Ordered omeprazole 40 mg oral enteric coated capsule 1 capsule = 40 mg, By Mouth, Daily, # 90 capsule, 2 Refills, Maintenance, 01/26/21 14:22:00 EDT, Shalini, [place], [place] - [id number], Partial fill upon patient request if the prescription is for a schedule II opioid drug., 164.3... Start Date: 01/26/21 Status: Ordered omeprazole 40 mg oral enteric coated capsule 1 capsule = 40 mg, By Mouth, Daily, # 90 capsule, 3 Refills, Maintenance, 01/26/21 14:57:00 EDT, ECCapsule, [facility]/pharmacy #[id number], Partial fill upon patient request if the prescription is for a schedule II opioid drug., 164.3, cm, 01/06/21 13:12:00 EDT,... Start Date: 01/26/21 Status: Ordered propranolol 20 mg oral tablet 1, tablet, By Mouth, 3 times a day, # 90 tablet, Refills 8, Route to Pharmacy Electronically, [facility], 170, cm, 07/20/21 8:17:00 EST, Height, 66, kg, 07/19/21 13:21:00 EST, Dry Weight Start Date: 09/20/21 Status: Ordered spironolactone 25 mg oral tablet 1, tablet, By Mouth, Daily, # 90 tablet, Refills 0, Tot. Refills 0, 04/15/22 14:16:00 EDT, Route toPharmacy Electronically, [facility] - [place], [place] - [id number], 170, cm, 01/18/22 12:36:00EDT, Height, 66, kg, [...] Persons Name: FLACO DALAL Address: [place] [address]
--- OUTSIDE RECORDS SUMMARY | 2024-07-06 05:56 | XMS_ITS | Continuity of Care Document ---
Author Organization [facility] Address [address] [facility], [address] d Floor, [address] [place] [id number]- Care Team Providers Care Color Room Attendant Name Role Phone Not on Staff, PCP Primary Care Physician Unavail able Encounter [facility] Date(s): 04/21/24 - 05/21/24 [facility] [address], [address] [place] [id number] Allergies, Adverse Reactions, Alerts No Known Medication Allergies Medications Breo Ellipta 100 mcg-25 mcg/inh inhalation powder 1 puffs, Inhalation, Daily, # 60 Unknown, 8 Refills, [facility], [facility], INHALE 1 PUFF BY MOUTH INTO THE lungs DAILY, 170, cm, 07/20/21 8:17:00 EST, Height, 66, kg, 07/19/21 13:21:00 EST, Dry Weight Start Date: 09/20/21 Status: Ordered calcium-vitamin D 600 mg-400 intl units oral tablet 1 tablet, By Mouth, 2 times a day, # 60 tablet, 2 Refills, Maintenance, 04/15/22 14:16:00 EDT, [place], [place] - [id number], 30, 1 tablet By Mouth 2 times a day, 170, cm, 01/18/22 12:36:00 EDT, Height, 66, kg, 07/19/21 13:21:00 EST,... Start Date: 04/15/22 Status: Ordered cloNIDine 0.1 mg/24 hr transdermal film, extended release 1 patch, Topically, Daily, CHANGE DAILY ROTATE PLACEMENT, # 90 patch, 1 Refills, Maintenance, 01/17/21 9:19:00 EDT, Patch, [place], [place] - [id number], Partial fill upon patient request if the [...] 5 Refills, Maintenance, 01/22/21 14:24:00 EDT, ECCapsule, [place], [place] - [id number], Partial fill upon patient request if the prescription is for a schedule II opioid drug., 164.3... Start Date: 01/22/21 Stop Date: 07/21/21 Status: Ordered famotidine 40 mg oral tablet 1 tablet = 40 mg, By Mouth, 2 times a day, # 60 tablet, 2 Refills, Maintenance, 01/03/21 15:00:00 EDT, Tablet, [facility]/pharmacy #[id number], Partial fill upon patient request if the prescription is for a schedule II opioid drug., 164.3, cm, 01/03/21 14:30:00 ED... Start Date: 01/03/21 Stop Date: 04/03/21 Status: Ordered Finasteride By Mouth, Daily, 0 Refills, Maintenance, 05/15/24 10:53:00 EDT, Partial fill upon patient request if the prescription is for a schedule II opioid drug. Start Date: 05/15/24 Status: Ordered ibuprofen 800 mg oral tablet 800 mg, 1, tablet, By Mouth, Daily, PRN, # 30 tablet, Refills 0, Tot. Refills 0, Maintenance, Pain , Moderate, 12/24/21 12:52:00 EDT, Route to Pharmacy Electronically, [facility] [id number], Partial fill upon patient request i... Start Date: 12/24/21 Status: Ordered levothyroxine 0.112 mg oral tablet 1 tablet, By Mouth, Daily, # 30 tablet, 11 Refills, Maintenance, 05/15/24 11:08:00 EDT, [facility] [id number], 170, cm, 05/15/24 10:47:00 EDT, Height Start Date: 05/15/24 Status: Ordered lisinopril 40 mg oral tablet 1 tablet, By Mouth, Daily, # 90 tablet, 0 Refills, 04/15/22 14:16:00 EDT, [facility], [place] - [id number], 170, cm, 01/18/22 12:36:00 EDT, Height, 66, kg, 07/19/21 13:21:00 EST, Dry Weight Start Date: 04/15/22 Status: Ordered montelukast 10 mg oral tablet 1, tablet, By Mouth, Daily, # 90 tablet, Refills 1, Tot. Refills 1, 04/15/22 14:16:00 EDT, Route toPharmacy Electronically, [facility], [place] - [id number], 170, cm, 01/18/22 12:36:00EDT, Height, 66, kg, 07/19/21 13:21:00 EST, Dry Weight Start Date: 04/15/22 Status: Ordered omeprazole 40 mg oral enteric coated capsule 1 capsule = 40 mg, By Mouth, Daily, # 90 capsule, 2 Refills, Maintenance, 01/26/21 14:22:00 EDT, Shalini, [facility], [place] - [id number], Partial fill upon patient request if the prescription is for a schedule II opioid drug., 164.3... Start Date: 01/26/21 Status: Ordered omeprazole 40 mg oral enteric coated capsule 1 capsule = 40 mg, By Mouth, Daily, # 90 capsule, 3 Refills, Maintenance, 01/26/21 14:57:00 EDT, ECCapsule, [facility]/pharmacy #[id number], Partial fill upon patient request if the prescription is for a schedule II opioid drug., 164.3, cm, 01/06/21 13:12:00 EDT,... Start Date: 01/26/21 Status: Ordered propranolol 20 mg oral tablet 1, tablet, By Mouth, 3 times a day, # 90 tablet, Refills 8, Route to Pharmacy Electronically, [facility], 170, cm, 07/20/21 8:17:00 EST, Height, 66, kg, 07/19/21 13:21:00 EST, Dry Weight Start Date: 09/20/21 Status: Ordered spironolactone 25 mg oral tablet 1, tablet, By Mouth, Daily, # 90 tablet, Refills 0, Tot. Refills 0, 04/15/22 14:16:00 EDT, Route toPharmacy Electronically, [facility] - [place], [place] - [id number], 170, cm, 01/18/22 12:36:00EDT, Height, 66, kg, 07/19/21 13:21:00 EST, Dry Weight Start Date: 04/15/22 Status: Ordered tamsulosin 0.4 mg oral capsule 0.4 mg, 1, capsule, By Mouth, Daily, Refills 0, Maintenance, 05/15/24 10:53:00 EDT, Partial fill upon patient request if the prescription is for a schedule II opioid drug. Start Date: 05/15/24 Status: Ordered traMADol 50 mg oral tablet [...] Team Personnel Name: Seun Christian RN Position: [facility] RN Member Role: Primary Care Nurse Name: Not on Staff, PCP Position: [facility] Physician (General Medicine) Member Role: PCP Care Team Related Persons Name: FLACO DALAL Address: [place] [address]
--- OUTSIDE RECORDS SUMMARY | 2024-07-06 05:56 | XMS_ITS | Continuity of Care Document ---
Author Organization [facility] Address [address] [place] [id number]- Care Team Providers Care Compliance Mgr Name Role Phone Not on Staff, PCP Primary Care Physician Unavail able [place] [facility]): 04/02/24 - 05/02/24 [facility] [address] [place] [id number] Attending Physician: Cydney Murry Admitting Physician: AdmtrCydney Referring Physician: Admtr ArPao Allergies, Adverse Reactions, Alerts No Known Medication Allergies Medications Breo Ellipta 100 mcg-25 mcg/inh inhalation powder 1 puffs, Inhalation, Daily, # 60 Unknown, 8 Refills, [facility], 270, INHALE 1 PUFF BY MOUTH INTO THE lungs DAILY, 170, cm, 07/20/21 8:17:00 EST, Height, 66, kg, 07/19/21 13:21:00 EST, Dry Weight Start Date: 09/20/21 Status: Ordered calcium-vitamin D 600 mg-400 intl units oral tablet 1 tablet, By Mouth, 2 times a day, # 60 tablet, 2 Refills, Maintenance, 04/15/22 14:16:00 EDT, [place], [place] - [id number], 30, 1 tablet By Mouth 2 times a day, 170, cm, 01/18/22 12:36:00 EDT, Height, 66, kg, 07/19/21 13:21:00 EST,... Start Date: 04/15/22 Status: Ordered cloNIDine 0.1 mg/24 hr transdermal film, extended release 1 patch, Topically, Daily, CHANGE DAILY ROTATE PLACEMENT, # 90 patch, 1 Refills, Maintenance, 01/17/21 9:19:00 EDT, Patch, [place], [place] - [id number], Partial fill upon patient request if the [...] 5 Refills, Maintenance, 01/22/21 14:24:00 EDT, ECCapsule, [facility] [id number], Partial fill upon patient request if the [...] 12/24/21 12:52:00 EDT, Route to Pharmacy Electronically, [facility] [place] - [id number], Partial fill upon patient request i... Start Date: 12/24/21 Status: Ordered levothyroxine 0.112 mg oral tablet 1 tablet = 112 mcg, By Mouth, Daily, # 30 tablet, 3 Refills, Maintenance, 12/11/23 12:48:00 EDT, Tablet, [facility] [id number], Partial fill upon patient request if the prescription is for a schedule II opioid drug., 170, cm,... Start Date: 12/11/23 Status: Ordered lisinopril 40 mg oral tablet 1 tablet, By Mouth, Daily, # 90 tablet, 0 Refills, 04/15/22 14:16:00 EDT, [facility] [id number], 170, cm, 01/18/22 12:36:00 EDT, Height, 66, kg, 07/19/21 13:21:00 EST, Dry Weight Start Date: 04/15/22 Status: Ordered montelukast 10 mg oral tablet 1, tablet, By Mouth, Daily, # 90 tablet, Refills 1, Tot. Refills 1, 04/15/22 14:16:00 EDT, Route toPharmacy Electronically, [facility] [id number], 170, cm, 01/18/22 12:36:00EDT, Height, 66, kg, 07/19/21 13:21:00 EST, Dry Weight Start Date: 04/15/22 Status: Ordered omeprazole 40 mg oral enteric coated capsule 1 capsule = 40 mg, By Mouth, Daily, # 90 capsule, 2 Refills, Maintenance, 01/26/21 14:22:00 EDT, Shalini, [place], [place] - [id number], Partial fill upon patient request if the prescription is for a schedule II opioid drug., 164.3... Start Date: 01/26/21 Status: Ordered omeprazole 40 mg oral enteric coated capsule 1 capsule = 40 mg, By Mouth, Daily, # 90 capsule, 3 Refills, Maintenance, 01/26/21 14:57:00 [id number] Partial fill upon patient request [...] 0, 04/15/22 14:16:00 EDT, Route toPharmacy Electronically, [facility] - [place], [place] - [id number], 170, cm, 01/18/22 12:36:00EDT, Height, 66, kg, [...] Team Personnel Name: Seun Christian RN Position: [facility] RN Member Role: Primary Care Nurse Name: Not on Staff, PCP Position: [facility] Physician (General Medicine) Member Role: PCP Care Team Related Persons Name: FLACO DALAL Address: [place] [address]
--- OUTSIDE RECORDS SUMMARY | 2024-07-06 05:57 | XMS_ITS | Continuity of Care Document ---
Author Organization [facility] Address [address] [place] [address]- Care Team Providers Care Microfilm Equipment Inspector Name Role Phone Not on Staff, PCP Primary Care Physician Unavail able Encounter [facility] Date(s): 05/06/24 - 06/19/24 [facility] [address] [place] [id number]- Attending Physician: Jennifer Holt MD Admitting Physician: Jennifer Holt MD Encounter Type: Pre-OutPatient One Time Allergies, Adverse Reactions, Alerts No Known Medication Allergies Medications Breo Ellipta 100 mcg-25 mcg/inh inhalation powder 1 puffs, Inhalation, Daily, # 60 Unknown, 8 Refills, [facility], 270, INHALE 1 PUFF BY MOUTH INTO THE lungs DAILY, 170, cm, 07/20/21 8:17:00 EST, Height, 66, kg, 07/19/21 13:21:00 EST, Dry Weight Start Date: 09/20/21 Status: Ordered Quantity: 60.0 Unit: Unknown Repeat number: 1 calcium-vitamin D 600 mg-400 intl units oral tablet 1 tablet, By Mouth, 2 times a day, # 60 tablet, 2 Refills, Maintenance, 04/15/22 2:16:00 PM EDT, [facility] - [place], [place] - [id number], 30, 1 tablet By Mouth 2 times a day, 170, cm, 01/18/22 12:36:00 EDT, Height, 66, kg, 07/19/21 13:21:00 EST, Dry Weight Start Date: 04/15/22 Status: Ordered Quantity: 60.0 Unit: tablet Repeat number: 3 cloNIDine 0.1 mg/24 hr transdermal film, extended release 1 patch, Topically, Daily, CHANGE DAILY ROTATE PLACEMENT, # 90 patch, 1 Refills, Maintenance, 01/17/21 9:19:00 AM EDT, Patch, [place], [place] - [phone], Partial fill upon patient request if the prescription is for a schedule II opioid drug., 164.3, cm, 12/23/20 14:46:00 EDT, Height, 60.8, kg, 12/07/20 1:39:00 EDT, Dry Weight Start Date: 01/17/21 Stop Date: 07/16/21 Status: Ordered Quantity: 90.0 Unit: patch Repeat number: 2 colchicine 0.6 mg oral tablet 0.6 mg, 1, tablet, By Mouth, Every hour, PRN, # 10 tablet, Refills 0, Maintenance, for gout pain, 05/31/21 1:29:00 PM EDT, Partial fill upon patient request if the prescription is for a schedule II opioid drug. Start Date: 05/31/21 Status: Ordered Quantity: 10.0 Unit: tablet Repeat number: 1 duloxetine 60 mg oral enteric coated capsule 1 capsule = 60 mg, By Mouth, Daily, # 30 capsule, 5 Refills, Maintenance, 01/22/21 2:24:00 PM EDT, [facility], [place], [place] - [id number], Partial fill upon patient request if the prescription is for a schedule II opioid drug., 164.3, cm, 01/06/21 13:12:00 EDT, Height, 60.8, kg, 0 12/07/20 1:39:00 EDT, Dry Weight Start Date: 01/22/21 Stop Date: 07/21/21 Status: Ordered Quantity: 30.0 Unit: capsule Repeat number: 6 famotidine 40 mg oral tablet 1 tablet = 40 mg, By Mouth, 2 times a day, # 60 tablet, 2 Refills, Maintenance, 01/03/21 3:00:00 PM EDT, Tablet, [facility]/pharmacy #[id number], Partial fill upon patient request if the prescription is for a schedule II opioid drug., 164.3, cm, 01/03/21 14:30:00 EDT, Height, 60.8, kg, 12/07/20 1:39:00 EDT, Dry Weight Start Date: 01/03/21 Stop Date: 04/03/21 Status: Ordered Quantity: 60.0 Unit: tablet Repeat number: 3 Finasteride By Mouth, Daily, 0 Refills, Maintenance, 05/15/24 10:53:00 AM EDT, Partial fill upon patient request if the prescription is for a schedule II opioid drug. Start Date: 05/15/24 Status: Ordered Repeat number: 1 ibuprofen 800 mg oral tablet 800 mg, 1, tablet, By Mouth, Daily, PRN, # 30 tablet, Refills 0, Tot. Refills 0, Maintenance, Pain , Moderate, 12/24/21 12:52:00 PM EDT, Route to Pharmacy Electronically, [place], [place] - [id number], Partial fill upon patient request if the prescription is for a schedule II opioiddrug., 170, cm, 12/18/21 12:55:00 EDT, Height, 66, kg, 07/19/21 13:21:00 EST, Dry Weight Start Date: 12/24/21 Status: Ordered Quantity: 30.0 Unit: tablet Repeat number: 1 levothyroxine 0.112 mg oral tablet 1 tablet, By Mouth, Daily, # 30 tablet, 11 Refills, Maintenance, 05/15/24 11:08:00 AM EDT, [place], [place] - [id number], 170, cm, 05/15/24 10:47:00 EDT, Height Start Date: 05/15/24 Status: Ordered Quantity: 30.0 Unit: tablet Repeat number: 12 lisinopril 40 mg oral tablet 1 tablet, By Mouth, Daily, # 90 tablet, 0 Refills, 04/15/22 2:16:00 PM EDT, [place], [place] - [id number], 170, cm, 01/18/22 12:36:00 EDT, Height, 66, kg, 07/19/21 13:21:00 EST, Dry Weight Start Date: 04/15/22 Status: Ordered Quantity: 90.0 Unit: tablet Repeat number: 1 montelukast 10 mg oral tablet 1, tablet, By Mouth, Daily, # 90 tablet, Refills 1, Tot. Refills 1, 04/15/22 2:16:00 PM EDT, Route to Pharmacy Electronically, [facility] [id number], 170, cm, 01/18/22 12:36:00 EDT, Height, 66, kg, 07/19/21 13:21:00 EST, Dry Weight Start Date: 04/15/22 Status: Ordered Quantity: 90.0 Unit: tablet Repeat number: 2 omeprazole 40 mg oral enteric coated capsule 1 capsule = 40 mg, By Mouth, Daily, # 90 capsule, 2 Refills, Maintenance, 01/26/21 2:22:00 PM EDT, [facility], [place], [place] - [id number], Partial fill upon patient request if the prescription is for a schedule II opioid drug., 164.3, cm, 01/06/21 13:12:00 EDT, Height, 58.9, kg, 0 01/26/21 13:00:00 EDT, Dry Weight Start Date: 01/26/21 Status: Ordered Quantity: 90.0 Unit: capsule Repeat number: 3 omeprazole 40 mg oral enteric coated capsule 1 capsule = 40 mg, By Mouth, Daily, # 90 capsule, 3 Refills, Maintenance, 01/26/21 2:57:00 PM EDT, EC Capsule, [facility]/pharmacy #[id number], Partial fill upon patient request if the prescription is for a schedule II opioid drug., 164.3, cm, 01/06/21 13:12:00 EDT, Height, 58.9, kg, 01/26/21 13:00:00 EDT, Dry Weight Start Date: 01/26/21 Status: Ordered Quantity: 90.0 Unit: capsule Repeat number: 4 propranolol 20 mg oral tablet 1, tablet, By Mouth, 3 times a day, # 90 tablet, Refills 8, Route to Pharmacy Electronically, [facility], 170, cm, 07/20/21 8:17:00 EST, Height, 66, kg, 07/19/21 13:21:00 EST, Dry Weight Start Date: 09/20/21 Status: Ordered Quantity: 90.0 Unit: tablet Repeat number: 1 spironolactone 25 mg oral tablet 1, tablet, By Mouth, Daily, # 90 tablet, Refills 0, Tot. Refills 0, 04/15/22 2:16:00 PM EDT, Route to Pharmacy Electronically, [place], [place] - [id number], 170, cm, 01/18/22 12:36:00 EDT, Height, 66, kg, 07/19/21 13:21:00 EST, Dry Weight Start Date: 04/15/22 Status: Ordered Quantity: 90.0 Unit: tablet Repeat number: 1 tamsulosin 0.4 mg oral capsule 0.4 mg, 1, capsule, By Mouth, Daily, Refills 0, Maintenance, 05/15/24 10:53:00 AM EDT, Partial fillupon patient request if the prescription is for a schedule II opioid drug. Start Date: 05/15/24 Status: Ordered Repeat number: 1 traMADol 50 mg oral tablet 1 tablet = 50 mg, By Mouth, Every 12 hours, PRN as needed for pain, 0 Refills, Maintenance, 05/31/21 1:29:00 PM EDT, Tablet, Partial fill upon patient request if the prescription is for a schedule IIopioid drug. Start Date: 05/31/21 Status: Ordered Repeat number: 1 Problem List Condition Confirmation Course Effective Dates [...] for about 30-40. Now 3-4 day. Sex Sex Representation Male (finding) Patient Care team information Care Team Personnel Name: Seun Christian RN Position: [facility] SN RN Member Role: Primary Care Nurse Name: Not on Staff, PCP Position: [facility] Physician (General Medicine) Member Role: PCP Care Team Related Persons Name: FLACO DALAL Insurance Providers Guarantor name: YONG GOSS Health Plan Information #: 1 Payer: MEDICARE PART B OUTPT Member Number: [id number] Policy Number: NA Group Number: NA Health Plan Information #: 2 Payer: [facility] Member Number: [id number] Policy Number: NA Group Number: NA
[2024-07-06] MEDS: Lactated Ringers 1,000 ML 100 ML IVCONT (07:15)
--- NOTE | 2024-07-06 07:34 | P.HPSUR_ITS ---
Pre-Procedural Eval Section A - 24 Hr Update-Section A only Date of Service: 07/06/24 The patient is an INPATIENT: No Changes since office visit: No Cold of Flu in the past 2 weeks, No New Medical Problems, No Changes in Medication and No Patient answered all questions The patient has been examined within 24 hours of the surgical procedure. The History & Physical has been completed within 30 days and I have reviewed it.: No Section B - Complete if H&P > 30 days Chief Complaint: Retention of urine, unspecified Details of Present Illness: Prior hospital admission with prostate abscess and hydronephrosis. Here for cystoscopy, suprapubic tube placement, GreenLight laser prostate and bilateral retrograde Relevant Family History (Specify if Yes): No Relevant Social History: None Present Medications: see Short Stay Collaborative assessment Medical History: Significant History History of Previous Operations: Relevant previous surgery/procedure and date(s) Allergies: Allergies Allergy/AdvReac Type Severity Reaction Status Date / Time No Known Allergies Allergy Verified 06/11/24 21:32 [No Known Allergies*] Review of Systems Sugical H&P ROS: Negative: Constitution, Cardiovascular, Respiratory, Neurological, Psychiatric, Hem-Onc, Allergic/Immunologic, Gastrointestinal, Genitourinary, Musculoskeletal, Integumentary, Endocrine and Eyes/Ears/Nose/Th roat Exam Surgical H&P Exam: Normal: HEENT, Normal: Heart, Normal: Lungs, Normal: Extremities, Normal: Abdomen, Normal: Skin and Normal: Neurological Plan Diagnosis/Plan: Unchanged (Cystoscopy, bilateral retrogrades, suprapubic tube placement and GreenLight laser prior) I have reviewed the history and physical and performed a pertinent physical examination on my patient. No changes have occurred unless specified. Time Spent With Patient Time: Total time managing care of this patient today ____ minutes.
--- NOTE | 2024-07-06 09:00 | W.PM.OPN ---
Operative Note Operative Note Date of Service: 07/06/24 Narrative: PreOperative Diagnosis: Bladder outlet obstruction, bilateral hydronephrosis Post Operative Diagnosis: Bladder outlet obstruction Procedure: 1) cystoscopy with bilateral retrogrades 2) suprapubic tube placement 3) GreenLight Laser Enucleation of the prostate CPT 31890 Surgeon: Dr Herbert Powers Anesthesia: General History of bladder outlet obstruction. Initially seen in hospital with prostatic abscess. Failed voiding trial. Bilateral hydronephrosis. Responded to indwelling Nolasco catheter with resolution of elevated creatinine. Plan for cystoscopy, bilateral retrograde, suprapubic tube placement and GreenLight laser prostate. Risks and benefits have been discussed. Focus was placed on development of retrograde ejaculation which is a normal part of this procedure. Procedure: After informed consent was verified the patient was brought to the operating room and placed in a supine position. Anesthesia was administered per protocol. Patient was placed in modified dorsal lithotomy position and prepped and draped in a sterile fashion. Safety pause time-out was confirmed. Antibiotics have been given. A Twenty-four Khmer laser cystoscope was inserted per urethra. No abnormalities were found of the anterior and bulbar urethra. The prostatic urethra shows trilobar hypertrophy. The bladder was examined and both ureteric orifices were seen in their normal positions away from the area of interest. Bladder trabeculation Grade 2/3 with cellules. Bilateral retrograde examination performed. Left retrograde performed 1st. J hooking shown but resolution of hydronephrosis was seen. Repeat procedure right side. Again J hooking displayed and mild hydronephrosis but no hydro uretero nephrosis. Air bubble was located at the dome of the bladder. A finder needle was inserted 2 fingerbreaths above the symphysis pubis on the abdomen into the bladder.? The needle was visualized in the bladder via cystoscopy. Local anesthetic was infiltrated subcutaneously around the needle introduction site. A small, 1cm horizontal incision was made.? A trocar introducer was advanced through the abdominal wall into the bladder under visualization. The obturator was removed and a 16 Fr nolasco catheter placed. 7cc was used to inflate the balloon. The external portion of the trocar was removed. Using a GreenLight laser with settings of 80 bullock incisions were made at the 5 and 7 o'clock position. The incisions were taken down from the bladder neck down to the level of the veru. These were gradually deepened in order to define the lateral aspects of the median lobe area. Once clearly defined they will also extended in the lateral directions in order to create a deep groove. The median lobe was then ablated and enucleated tissue released into the bladder with the laser power increased to 120 W. Once the median lobe area had been cleared attention was directed to the lateral lobes. Power was increased to 140 w. Prostate tissue had significant desiccation likely a result of scarring from prior prostatitis. Starting with the patient's left lateral lobe. First the 05:00 o'clock groove was further developed. This was moved in the lateral direction to undermine the tissue on the lateral side running from the bladder neck to the prostate apex. The ureteric orifice was used to guide incisions. Focus was then placed on the laser at the 1 o'clock position to developing a secondary groove down to the level of bladder fibers. The creation of a second deep groove defined a segment of intervening tissue similar to a slice of orange. At the apex of the prostate the 2 grooves were linked the us releasing the intervening tissue. This tissue was then removed with a combination of enucleation and ablation working from the apex toward the bladder neck. A similar procedure was repeated on the patient's right-hand side. The only differences being the position of the lateral groove at he 7 o'clock position and the secondary groove at the 11 o'clock position, Otherwise the procedure was developed in a mirror fashion. After the majority of tissue had been debulked remnant tissue was ablated with the side fire laser and the curve of the prostate followed up each side wall clearly defining the anterior remnant strip that remained between the 11 and 1 o'clock positions. In this case the anterior tissue protruded into the prostatic fossa and was partially ablated with the laser When this was had been completed debris and pieces of prostate were removed from the bladder with irrigation. Both ureteric orifices were reviewed again in shown to be patent in away from any areas of energy damage. The apical area was reviewed in any stray ooze was controlled. A 22 Khmer 30 cc balloon Nolasco catheter was placed over a stylet into the bladder. Clear efflux was obtained upon irrigation with a Ferdinand piston syringe. 30 cc was placed in the balloon and gentle traction was placed. A snap was used to hold tension on the catheter to control bleeding during patient moved and transported. A drainage bag was placed. Once transportation is complete to the PACU the snap will be removed. The patient tolerated the procedure well, he was extubated in the operating and transferred in a stable condition to the recovery area. Total Power 218 kW Lasing time 28:43 Pathology: Prostate tissue Drains: Nolasco catheter plus suprapubic tube
[2024-07-06] MEDS: fentaNYL citrate/PF 100 MCG/2 ML VIAL 50 MCG IVPUSH ×2 (10:00→10:19)
[2024-07-06] MEDS: oxyCODONE HCl Immed Release 5 MG TABLET PO (10:00)
[2024-07-06] MEDS: Acetaminophen 1,000 MG/100 ML PIGGYBACK 400 MG IV (10:05)
== END 2024-07-06 12:23 | disposition home or self-care (01) ==
PROVIDERS: PCP Internal Medicine; Visit Provider Urology
PROC: (CPT 52648; principal; 2024-07-06 07:30)
DX: N13.8 Other obstructive and reflux uropathy (principal); N13.30 Unspecified hydronephrosis; R33.9 Retention of urine, unspecified; N41.2 Abscess of prostate; I10 Essential (primary) hypertension; J45.909 Unspecified asthma, uncomplicated; F33.2 Major depressive disorder, recurrent severe without psychotic features; H54.8 Legal blindness, as defined in USA; L30.9 Dermatitis, unspecified; Z87.891 Personal history of nicotine dependence
CPT/HCPCS: 52649; 51102; 88305; C1758; J0131; J1100; J1956; J2003; J2250; J2371; J2405; J2704; J2795; J3010; Q9967

== ENCOUNTER → 2024-07-06 05:52 | Outpatient (BNV) | payer MEDICARE, MEDICAID, SELFPAY | PROVIDERS: PCP Internal Medicine; Visit Provider Urology | DX: N32.0 Bladder-neck obstruction (principal); N13.2 Hydronephrosis with renal and ureteral calculous obstruction | CPT/HCPCS: 52649 ==

== ENCOUNTER → 2024-07-09 09:04 | Outpatient (BNVA) | payer MEDICARE, MEDICAID, SELFPAY | PROVIDERS: PCP Internal Medicine; Visit Provider Urology | DX: N13.9 Obstructive and reflux uropathy, unspecified (principal); N41.2 Abscess of prostate; R33.9 Retention of urine, unspecified | CPT/HCPCS: 51700 ==

== ENCOUNTER → 2024-07-23 12:52 | Outpatient (BNVA) | payer MEDICARE, MEDICAID, SELFPAY | PROVIDERS: PCP Internal Medicine; Visit Provider Urology | DX: N13.9 Obstructive and reflux uropathy, unspecified (principal); R33.9 Retention of urine, unspecified | CPT/HCPCS: 51798 ==

== ENCOUNTER 2024-08-21 10:49 | Outpatient (REF) | payer MEDICARE, MEDICAID, SELFPAY | END 2024-08-21 10:50 | disposition home or self-care (01) | LOC: HO.LAB 10:49 | PROVIDERS: PCP Internal Medicine; Visit Provider Urology | DX: N39.0 Urinary tract infection, site not specified (principal); R33.9 Retention of urine, unspecified; N41.2 Abscess of prostate | CPT/HCPCS: 81003; 87086; 87088; 87186; 99212 ==

== ENCOUNTER 2024-08-21 10:49 | Outpatient (AMB) | payer MEDICARE, MEDICAID, SELFPAY ==
--- NOTE | 2024-08-21 10:59 | A.OFFVIS_ITS ---
Intake Visit Reasons: Greenlight- follow up Intake Note: Patient is present for GREENLIGHT F/U Urology Medication:TAMSULOSIN,,FINASTERIDE,VITAMIN C Antibiotic Allergy:NONE Blood Thinner:NONE Privacy Attorney Required: No Allergies No Known Allergies [No Known Allergies*] Allergy (Verified 08/21/24 11:00) HPI Comments Details: Loni is a pleasant male. He is a patient of Dr. Bettencourt. He seen for the following urologic conditions - urinary retention with prostate abscess Follow-up from prostate procedure Doing great in terms of urination Continue medications Six-month follow-up PSA Prior admission to hospital with prostate abscess - 03/28 Bilateral hydronephrosis Urinary retention Greenlight procedure 06/28 Failed voiding trial last month with readmission with pyelonephritis 04/28 [facility] Medical History (Updated 06/30/24 @ 11:52 by Jennifer Solis RN) Palpitations Eczema of both external ears Major depression, recurrent Legally blind Asthma HTN (hypertension) Social History Household Members: None Housing: House Do you presently have visiting nurse or other home services: Yes Alcohol intake: never Patient Tobacco Use Status: Former Tobacco user Tobacco use type: Cigarette Cigarettes Per Day: 2 e-Cigarette/Vaping Use: Never Used Second Hand Smoke Exposure: No service: No Current occupational status: disabled Cognitive needs: No Hearing needs: No Vision needs: 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) Review of Systems Const Denies chills and Denies fever(s) Card Reports no additional complaints and Denies syncope Resp Denies cough GI Denies abdominal pain and Denies heartburn Reports as per HPI and Denies change in libido Neuro Denies syncope Psych Denies change in libido Endo Denies change in libido Physical Exam Const General: cooperative, healthy appearing, comfortable and no acute distress Orientation/consciousness: patient oriented x3 HEENT Face and sinus: Yes normal facial exam Mouth: moist mucous membranes Neck Neck: Yes normal visual inspection, Yes full ROM and Yes trachea midline Chest Chest palpation & inspection: normal inspection of the chest Resp Effort & Inspection: normal respiratory effort, able to speak in complete sentences and no respiratory distress GI Inspection: Yes normal to inspection Back/Spine/Pelvis Cervical Spine: normal cervical lordosis Thoracic/Lumbar Spine: thoracic and lumbar spine normal to inspection Skin General skin exam: no rashes or lesions noted Neuro General: patient oriented x3, gait normal, tone normal and moves all extremities Extrem General: Yes normal to inspection and Yes capillary refill normal Results AMB Urinalysis, Automated UA Leukoctes 500 Davon/uL Last Edit by MARCI Brown on 08/21/24 11:12 UA Nitrite Negative Last Edit by MARCI Brown on 08/21/24 11:12 UA Urobilinogen 0.2 mg/dL Last Edit by MARCI Brown on 08/21/24 11:1 2 UA Protein 100 mg/dL Last Edit by Radha Barbosa CCM on 08/21/24 11:12 UA pH 6.0 Last Edit by Radha Barbosa [facility] on 08/21/24 11:12 UA Blood 200 Jomar/uL Last Edit by Radha Barbosa CCM on 08/21/24 11:12 UA Specific [place] 1.020 Last Edit by Radha Barbosa CCM on 08/21/24 11: 12 UA Ketone Negative Last Edit by Radha Barbosa CCM on 08/21/24 11:12 UA Bilirubin 0 mg/dL Last Edit by Radha Barbosa CCM on 08/21/24 11:12 UA Glucose 0 mg/dL Last Edit by Radha Barbosa [facility] on 08/21/24 11:12 Results Reviewed Results Reviewed: Laboratory Last Values Urine pH (Auto) 6.0 08/21/24 11:12 Specific [place] (Auto) 1.020 08/21/24 11:12 Urine Protein (Auto) 100 mg/dL 08/21/24 11:12 Glucose (UA)(Auto) 0 mg/dL 08/21/24 11:12 Urine Ketones (Auto) Negative 08/21/24 11:12 Urine Blood (Auto) 200 Jomar/uL 08/21/24 11:12 Urine Nitrite (Auto) Negative 08/21/24 11:12 Urine Bilirubin (Auto) 0 mg/dL 08/21/24 11:12 Urine Urobilinogen (Auto) 0.2 mg/dL 08/21/24 11:12 Leukocyte Esterase (Auto) 500 Davon/uL 08/21/24 11:12 Assessment & Plan Assessment & Plan (1) Urinary retention with incomplete bladder emptying: Code(s): R33.9 - Retention of urine, unspecified Category: Medical (2) Prostatic abscess: Code(s): N41.2 - Abscess of prostate Category: Medical Plan Six-month follow-up Orders: Orders Urine Culture Today N39.0 - Urinary tract infection, site not specified AMB Urinalysis Automated Today Z13.9 - Encounter for screening, unspecified Medications: Refilled finasteride 5 mg PO DAILY 90 tabs 1RF 90 days tamsulosin 0.4 mg PO DAILY 90 caps 1RF 90 days Patient Instructions: Imaging studies, laboratory and physical exam results were discussed and reviewed in detail. No major barriers to patient understanding were identified. An opportunity to ask questions regarding the treatment plan was provided. All questions were answered. The patient expressed understanding and agreement with the above treatment plan. The patient is aware they should contact our office by phone for worsening of their current condition or the appearance of new urologic symptoms. Compliance is encouraged with any medications and followup testing that is ordered. It is a privilege to participate in the urologic care of your patient. If you have any questions or concerns regarding treatment for the above conditions, or other urologic issues, please do not hesitate to contact me. The office telephone contact is [phone]. This note is constructed using voice recognition software. While every effort has been made to ensure accuracy preassembler and inspector errors may have been included. Yours sincerely, Dr Herbert Powers MD, [facility] - Urology Providers of Expert, Compassionate Care for the Genitourinary System Coding Level of Care Code Est Pt Level 3 (21471) Diagnoses Urinary retention with incomplete bladder emptying R33.9 Prostatic abscess N41.2
== END 2024-08-21 12:00 | disposition home or self-care (01) ==
PROVIDERS: PCP Internal Medicine; Visit Provider Urology
DX: R33.9 Retention of urine, unspecified (principal); N41.2 Abscess of prostate; Z13.9 Encounter for screening, unspecified
CPT/HCPCS: 99024

== ENCOUNTER 2024-09-04 08:49 | Outpatient (REF) | payer MEDICARE, MEDICAID, SELFPAY ==
--- OUTSIDE RECORDS SUMMARY | 2024-09-04 09:38 | XMS_ITS | Clinical Summary ---
Author Organization [facility] Address [address] [place] [address] Care Team Providers Care Artist'S Representative Name Role Phone Unavailable Primary Care Provider [...] Plan of Treatment Not on file Insurance [place]
[2024-09-04 10:55] LABS: MANUAL DIFF FLAG NO
[2024-09-04 11:02] LABS: Basophils Absolute Auto 0.1 X10*3/uL (0.0-0.2); Basophils Percent Auto 1.5 % (0-2); Eosinophils Absolute Auto 0.4 X10*3/uL (0.0-0.4); Eosinophils Percent Auto 5.1 % (0-4); Hematocrit 44.4 % (42.0-52.0); Hemoglobin 14.6 g/dl (14.0-18.0); Imm Gran Abs Auto 0.03 X10*3/uL (0.00-0.03); Imm Gran Pct Auto 0.4 % (0.0-0.4); Lymphocytes Absolute Auto 1.6 X10*3/uL (1.2-4.9); Lymphocytes Percent Auto 23.1 % (20-40); Mean Corpuscular HGB Conc 32.9 g/dl (31.0-36.0); Mean Corpuscular Hemoglobin 28.2 pg (27.0-33.0); Mean Corpuscular Volume 85.7 fL (80.0-98.0); Mean Platelet Volume 9.3 fL (9.4-12.4); Monocytes Absolute Auto 0.9 X10*3/uL (0.1-1.2); Monocytes Percent Auto 12.9 % (2-11); Neutrophils Absolute Auto 4.1 x10*3/uL (2.0-8.3); Platelet Count 340 X10*3/uL (160-400); Red Blood Count 5.18 X10*6/uL (4.60-5.80); Red Cell Distribution Width 14.6 % (11.0-16.0); White Blood Count 7.1 X10*3/uL (4.8-10.8)
[2024-09-04 11:10] LABS: Estimated Average Glucose 131 mg/dL; Hemoglobin A1C 166.3217 umol/L; Hemoglobin A1c % 6.2 % (<6.0); Total Hemoglobin (HGBA1C) 3718.1651 umol/L
[2024-09-04 11:33] LABS: Alanine Aminotransferase 31 U/L (0-40); Albumin Level 4.5 g/dL (3.5-5.0); Alkaline Phosphatase 80 U/L (39-117); Anion Gap 13 (12-20); Aspartate Amino Transferase 26 U/L (5-37); Bilirubin Total 0.3 mg/dL (0.0-1.0); Blood Urea Nitrogen 27 mg/dL (9-16); Calcium 10.1 mg/dL (8.4-10.2); Carbon Dioxide 23 mmol/L (22-29); Chloride 106 mmol/L (96-108); Estimated Glomerular Filt Rate 42; Glucose Random 92 mg/dL (60-115); Potassium 4.7 mmol/L (3.3-5.1); Sodium 137 mmol/L (135-145); Total Protein 8.1 g/dL (6.5-8.0)
[2024-09-04 11:37] LABS: TSH reflex Free T4 0.16 uIU/mL (0.32-4.0)
[2024-09-06 01:43] LABS: LDL Cholesterol Direct 124 mg/dL (<100)
== END 2024-09-04 08:50 | disposition home or self-care (01) ==
LOC: HO.HMGCLDS 08:49
PROVIDERS: PCP Internal Medicine; Visit Provider Internal Medicine
DX: I10 Essential (primary) hypertension (principal); J45.20 Mild intermittent asthma, uncomplicated; D64.9 Anemia, unspecified; E03.8 Other specified hypothyroidism; H54.8 Legal blindness, as defined in USA; M72.2 Plantar fascial fibromatosis; Z79.899 Other long term (current) drug therapy; Z90.79 Acquired absence of other genital organ(s); Z13.1 Encounter for screening for diabetes mellitus
CPT/HCPCS: 36415; 80053; 83036; 83721; 84439; 84443; 85025; 96127; 99212

== ENCOUNTER 2024-09-04 08:49 | Outpatient (AMB) | payer MEDICARE, MEDICAID, SELFPAY ==
[2024-09-04 08:50] VITALS: BP 108/72; PULSE 92; TEMP 36.7; O2SAT 95; BMI 23.1
--- NOTE | 2024-09-04 08:50 | MHC.PC.OV ---
Vital Signs 09/04/24 08:50 Height 5 ft 8 in Weight 152 lb 4 oz BMI 23.1 BP 108/72 Blood Pressure Location Lt brachial Position Sitting Pulse 92 Pulse Source Pulse Oximeter Temp 98.1 F Temp Source Oral Pulse Oximetry (%) 95 Oxygen Delivery Method Room Air Intake Visit Reasons: 3 months follow up Allergies No Known Allergies [No Known Allergies*] Allergy (Verified 09/04/24 08:51) Medication List - Last Reconciled 09/04/24 by Florecita Bettencourt MD ascorbic acid (vitamin C) 1 g PO DAILY 90 days calcium carbonate-vitamin D3 600 mg-10 mcg (400 unit) 1 tab PO BID cholecalciferol (vitamin D3) 50 mcg PO DAILY 90 days [Commode As directed] finasteride 5 mg PO DAILY 90 days gabapentin 300 mg PO TID levothyroxine 112 mcg PO DAILY losartan 50 mg PO DAILY montelukast 10 mg PO DAILY omeprazole 40 mg PO DAILY@0630 90 days [Shower chair w/back As directed] spironolactone 50 mg PO DAILY 90 days tamsulosin 0.4 mg PO DAILY 90 days tramadol 50 mg PO Q6H PRN Tobacco use date assessed: 09/04/24 Fall risk assessment: No Falls in past year Last assessed Fall Risk: 09/04/24 Dental Screening Dental Screen Date: 09/04/24 Did you have a dental visit in the last 12 months?: No Did you have a dental problem in the last 6 months where you did not have access to dental care?: No Was dental information given to patient?: Patient has dentist HPI 3 months follow up HPI Details - The patient is a 63-year-old male presenting for his regular f.u apt - Recent urology appointment confirmed urine infection. treated by Urology - No issues with urination or incontinence following prostatectomy. - Slight anemia noted in labs from June. - Denies lightheadedness or dizziness. - foot pain controlled with gabapentine tid - hypothyroidism, TSH stable - hypertension, blood pressure is well-controlled today - patient is legally blind and have 24 help available Medications - Finasteride (prostate health) - Gabapentin 300 mg (three times daily, unspecified indication) - Levothyroxine 112 mcg (thyroid regulation) - Losartan 50 mg (blood pressure management) - Montelukast 10 mg (unspecified indication, possibly for allergies or asthma) - Omeprazole 40 mg (for gastric acid reflux) - Spironolactone 50 mg (unspecified indication) - Tamsulosin (prostate health) - History of Prostatectomy Patient Instructions - Undergo lab work at the end of September. - Ensure safety while using the shower, and seek assistance if necessary until a shower chair is provided. - continue medications as prescribed Review of Systems - Urinary: Reports normal urination, denies incontinence or leakage. - General: Denies lightheadedness or dizziness. neurological: No headaches no dizziness ear nose throat: No sore throat no hearing difficulty no ear pain cardiovascular: No syncope, no chest pain, no palpitations gastrointestinal: No nausea vomiting or diarrhea endocrine: No polyuria polydipsia no heat intolerance skin: No new complaints Physical Exam general: No acute distress HEENT: No acute findings patient is legally blind neck: Supple respiratory system: Able to talk in full sentences, no audible wheeze no stridor cardiovascular: S1-S2 gastrointestinal: No pain extremities: No new findings APPLE THINNER: Alert awake oriented x3 motor sensory intact skin: Normal turgor [facility] Medical History Palpitations Eczema of both external ears Major depression, recurrent Legally blind Asthma HTN (hypertension) Social History Household Members: None Housing: House Do you presently have visiting nurse or other home services: Yes Alcohol intake: never Patient Tobacco Use Status: Former Tobacco user Tobacco use type: Cigarette Cigarettes Per Day: 2 e-Cigarette/Vaping Use: Never Used Second Hand Smoke Exposure: No service: No Current occupational status: disabled Cognitive needs: No Hearing needs: No Vision needs: 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) Questionnaire PHQ-9 Over the last 2 weeks, how often have you been bothered by any of the following problems? 1. Little interest or pleasure in doing things: not at all 2. Feeling down, depressed, or hopeless: not at all 3. Trouble falling or staying asleep, or sleeping too much: not at all 4. Feeling tired or having little energy: not at all 5. Poor appetite or overeating: not at all 6. Feeling bad about yourself - or that you are a failure or have let yourself or your family down: not at all 7. Trouble concentrating on things, such as reading the newspaper or watching television: not at all 8. Moving or speaking so slowly that other people could have noticed. Or the opposite - being so fidgety or restless that you have been moving around a lot more than usual: not at all 9. Thoughts that you would be better off or of hurting yourself in some way: not at all Total score: 0 Depression Screening Interpretation: Negative Depression Screening Done: Yes 47207 - PHQ-9 Billing: Yes Source: Developed by Drs. Tarun Chance, Bethany Saucedo, Rodriguez Martin and colleagues, with an educational chioma from [employer]. Thrive Questionnaire Date Thrive assessed: 09/04/24 I am a: Patient What is your living situation today?: I have a steady place to live Within the past 12 months, did the food you bought not last and you didn't have the money to get more?: Never true Within the past 12 months, did you worry whether your food would run out before you got money to buy more?: Never true Do you have trouble paying for medicines?: Yes Do you have trouble getting transportation to medical appointments?: No Do you have trouble paying your heating and electricity bill?: No Do you have trouble taking care of your child, family member or friend?: No Do you have trouble with day-to-day activities such as bathing, preparing meals, shopping, managing finances, etc.?: Yes Are you currently unemployed and looking for a job?: No Are you interested in more education?: No Please select the resources that you would like help with: None Currently or been in a relationship where the following occur: No concerns reported THRIVE Score: 0 AUDIT C Alcohol Use Questionnaire (AUDIT-C) 1. How often do you have a drink containing alcohol?: Never 3. How often do you have six or more drinks on one occasion?: Never Total Score: 0 Score Reviewed/Action Taken: Yes MINNIE-7 AMB Questionnaire MINNIE-7 Date MINNIE - 7 assessed: 09/04/24 Feeling nervous, anxious, or on edge: 0 = Not at all Not being able to stop or control worryin = Not at all Worrying too much about different things: 0 = Not at all Trouble relaxin = Not at all Being so restless that it is hard to sit still: 0 = Not at all Becoming easily annoyed or irritable: 0 = Not at all Feeling afraid as if something awful might happen: 0 = Not at all Total MINNIE-7 score (0-4 normal; 5-9 mild; 10-14 moderate; 15-21 severe): 0 Source: Developed by Drs. Tarun Chance, Bethany Saucedo, Rodriguez Martin and colleagues, with an educational chioma from [employer]. MINNIE-7 Assessment Billing MINNIE-7 Assessment Tool: MINNIE-7 Assessment 21082 Physical exam (Primary Care) Vital Signs: Last Vital Signs Temp 98.1 F 09/04/24 08:50 Pulse 92 09/04/24 08:50 BP 108/72 09/04/24 08:50 Pulse Ox 95 09/04/24 08:50 Oxygen Delivery Method Room Air 09/04/24 08:50 BMI result Body Mass Index 23.1 Tobacco/Smoking Status: Tobacco use Status Tobacco use date assessed 09/04/24 09/04/24 09:00 Patient Tobacco Use Status Former Tobacco user 09/04/24 09:00 Tobacco use type Cigarette 09/04/24 09:00 e-Cigarette/Vaping Use Never Used 09/04/24 09:00 PHQ-9: PHQ-9 Score PHQ-9: Total score 0 09/04/24 09:13 Depression Screening Interpretation: Negative Thrive Assessment: Date of Thrive Assessment Date Thrive assessed 09/04/24 09/04/24 09:00 Currently or been in a relationship where the following occur: No concerns reported Coding Level of Care Code Est Pt Level 4 (24143) Complex EM visit Add On G2211 Diagnoses Hypertension, essential I10 Mild intermittent asthma without complication J45.20 Asthma complication type: uncomplicated Asthma severity: mild Chronic anemia D64.9 Other specified hypothyroidism E03.8 Legally blind H54.8 Plantar fasciitis, bilateral M72.2 History of prostatectomy Z90.79 Additional Codes MINNIE-7 Assessment Billing - MINNIE-7 Assessment Tool: MINNIE-7 Assessment 39897 ([id number]) PHQ-9 - 02814 - PHQ-9 Billing: Yes ([id number]) Assessment & Plan Assessment & Plan (1) Hypertension, essential: Code(s): I10 - Essential (primary) hypertension Category: Medical (2) Intermittent asthma: Code(s): J45.20 - Mild intermittent asthma, uncomplicated Category: Medical Qualifiers: Asthma complication type: uncomplicated Asthma severity: mild Qualified Code(s): J45.20 - Mild intermittent asthma, uncomplicated (3) Chronic anemia: Code(s): D64.9 - Anemia, unspecified Category: Medical (4) Other specified hypothyroidism: Code(s): E03.8 - Other specified hypothyroidism Category: Medical (5) Legally blind: Code(s): H54.8 - Legal blindness, as defined in [place] Category: Medical (6) Plantar fasciitis, bilateral: Code(s): M72.2 - Plantar fascial fibromatosis Category: Medical (7) History of prostatectomy: Code(s): Z90.79 - Acquired absence of other genital organ(s) Category: Surgical Plan - The patient is a 63-year-old male presenting for his regular f.u apt - Recent urology appointment confirmed urine infection. treated by Urology - No issues with urination or incontinence following prostatectomy. - Slight anemia noted in labs from June. - Denies lightheadedness or dizziness. - foot pain controlled with gabapentine tid - hypothyroidism, TSH stable - hypertension, blood pressure is well-controlled today - patient is legally blind and have 25/02 help available Medications - Finasteride (prostate health) - Gabapentin 300 mg (three times daily, unspecified indication) - Levothyroxine 112 mcg (thyroid regulation) - Losartan 50 mg (blood pressure management) - Montelukast 10 mg (unspecified indication, possibly for allergies or asthma) - Omeprazole 40 mg (for gastric acid reflux) - Spironolactone 50 mg (unspecified indication) - Tamsulosin (prostate health) - History of Prostatectomy Patient Instructions - Undergo lab work at the end of September. - Ensure safety while using the shower, and seek assistance if necessary until a shower chair is provided. - continue medications as prescribed Orders: Orders Complete Blood Count Auto Diff Today D64.9 - Anemia, unspecified, E03.8 - Other specified hypothyroidism, I10 - Essential (primary) hypertension, J45.20 - Mild intermittent asthma, uncomplicated Hemoglobin A1c Today D64.9 - Anemia, unspecified, E03.8 - Other specified hypothyroidism, I10 - Essential (primary) hypertension, J45.20 - Mild intermittent asthma, uncomplicated TSH reflex Free T4 Today D64.9 - Anemia, unspecified, E03.8 - Other specified hypothyroidism, I10 - Essential (primary) hypertension, J45.20 - Mild intermittent asthma, uncomplicated LDL Cholesterol Direct Today D64.9 - Anemia, unspecified, E03.8 - Other specified hypothyroidism, I10 - Essential (primary) hypertension, J45.20 - Mild intermittent asthma, uncomplicated Comprehensive Met. Panel Today D64.9 - Anemia, unspecified, E03.8 - Other specified hypothyroidism, I10 - Essential (primary) hypertension, J45.20 - Mild intermittent asthma, uncomplicated
--- OUTSIDE RECORDS SUMMARY | 2024-09-04 09:07 | XMS_ITS | Clinical Summary ---
Author Organization [facility] Address [address] [place] [address] Care Team Providers Care Assembler Engine Name Role Phone Unavailable Primary Care Provider Unavailabl e Source Comments PLEASE NOTE, if this patient is a minor, it may be UNLAWFUL to discuss sensitive information that is contained in these records (such as FAMILY PLANNING, MENTAL HEALTH or SUBSTANCE ABUSE) with the minor patient's parent or other person without the patient's specific authorization.[facility] Social History Tobacco Use Types Packs/Day Years Used Date Smoking Tobacco: Never Assessed Social Connections Answer Date Recorded Social Connections and Isolation 0 08/17/2019 Financial Resource Strain Answer Date R ecorded Financial Resource Strain 0 2019 Stress Answer Date Recorded Stress 0 08/17/2019 Physical Activity Answer Date Recorded Physical Activity 0 08/17/2019 Food Insecurity Answer Date Recorded Food 0 08/17/2019 Transportation Needs Answer Date Record ed Transportation 0 08/17/2019 Housing Stability Answer Date Recorded Housing 0 08/17/2019 Safety and Environment Answer Date Braeden rded Safety 0 08/17/2019 Utilities Answer Date Recorded Utilities 0 08/17/2019 Employment Answer Date Recorded Employment 0 08/17/2019 Sex and Gender Information Value Date Recorded Sex Assigned at Not on file Legal Sex Male 10:49 AM PST Gender Identity Not on file Sexual Orientation Not on file Plan of Treatment Not on file Insurance [place] MED[place] DENT[place]
== END 2024-09-04 09:11 | disposition home or self-care (01) ==
PROVIDERS: PCP Internal Medicine; Visit Provider Internal Medicine
DX: I10 Essential (primary) hypertension (principal); J45.20 Mild intermittent asthma, uncomplicated; D64.9 Anemia, unspecified; E03.8 Other specified hypothyroidism; H54.8 Legal blindness, as defined in USA; M72.2 Plantar fascial fibromatosis; Z90.79 Acquired absence of other genital organ(s)

== ENCOUNTER 2024-10-06 08:55 | Outpatient (REF) | payer MEDICARE, MEDICAID, SELFPAY ==
--- OUTSIDE RECORDS SUMMARY | 2024-10-06 09:42 | XMS_ITS | Clinical Summary ---
Author Organization [facility] Address [address] [place] [address] Care Team Providers Care Hotel Yardperson Name Role Phone Unavailable Primary Care Provider [...] Plan of Treatment Not on file Insurance [place] MED[place]ENT[place]
[2024-10-06 10:37] LABS: Anion Gap 10 (12-20); Blood Urea Nitrogen 14 mg/dL (9-16); Calcium 8.8 mg/dL (8.4-10.2); Carbon Dioxide 27 mmol/L (22-29); Chloride 110 mmol/L (96-108); Estimated Glomerular Filt Rate > 60; Glucose Random 76 mg/dL (60-115); Potassium 3.5 mmol/L (3.3-5.1); Sodium 143 mmol/L (135-145)
[2024-10-06 11:41] LABS: Free T4 (Free Thyroxine) 1.38 ng/dL (0.71-1.85)
== END 2024-10-06 08:56 | disposition home or self-care (01) ==
LOC: HO.HMGCLDS 08:55
PROVIDERS: PCP Internal Medicine; Visit Provider Internal Medicine
DX: R79.89 Other specified abnormal findings of blood chemistry (principal)
CPT/HCPCS: 36415; 80048; 84439; 84443

== ENCOUNTER → 2024-11-04 23:59 | Outpatient (BNV) | payer MEDICARE, MEDICAID, SELFPAY | PROVIDERS: PCP Internal Medicine; Visit Provider Internal Medicine | DX: I10 Essential (primary) hypertension (principal); H54.8 Legal blindness, as defined in USA; F41.9 Anxiety disorder, unspecified | CPT/HCPCS: G0179 ==

== ENCOUNTER 2024-12-04 08:57 | Outpatient (AMB) | payer MEDICARE, MEDICAID, SELFPAY ==
[2024-12-04 09:05] VITALS: BP 132/82; PULSE 90; O2SAT 98; BMI 24.8
--- NOTE | 2024-12-04 09:05 | A.OFFPC_ITS ---
Vital Signs 12/04/24 09:05 Height 5 ft 8 in Weight 163 lb BMI 24.8 BP 132/82 Blood Pressure Location Lt brachial Position Sitting Pulse 90 Pulse Source Pulse Oximeter Pulse Oximetry (%) 98 Oxygen Delivery Method Room Air Intake Visit Reasons: 3m follow up Allergies No Known Allergies [No Known Allergies*] Allergy (Verified 12/04/24 09:05) Medication List - Last Reconciled 12/04/24 by Florecita Bettencourt MD ascorbic acid (vitamin C) 1 g PO DAILY 90 days calcium carbonate-vitamin D3 600 mg-10 mcg (400 unit) 1 tab PO BID cholecalciferol (vitamin D3) 50 mcg PO DAILY 90 days [Commode As directed] finasteride 5 mg PO DAILY 90 days gabapentin 300 mg PO TID levothyroxine 112 mcg PO DAILY losartan 50 mg PO DAILY montelukast 10 mg PO DAILY omeprazole 40 mg PO DAILY@0630 90 days [Shower chair w/back As directed] spironolactone 50 mg PO DAILY 90 days tamsulosin 0.4 mg PO DAILY 90 days tramadol 50 mg PO Q6H PRN Tobacco use date assessed: 12/04/24 Fall risk assessment: No Falls in past year Last assessed Fall Risk: 12/04/24 Dental Screening Dental Screen Date: 09/04/24 HPI 3m follow up HPI Details History - The patient is a 64-year-old male who is legally blind, [facility] conditions. With his template checker - Hypertension: The patient's blood pres sure is reportedly stable as of the last visit and during today's assessment. - Gastroesophageal Reflux Disease: The p atient is taking Omeprazole 40 mg for management. - Prostate-related Symptoms: The patient denies any current issues with urination. - Thyroid Dysfunction: There was a noted deviation in thyroid function since the last evaluation. The patient is on Levothyroxine 112 mcg. Further investigation via labs is planned. Problem List - Hypertension - Gastroesophageal Reflux Disease - allergies stable, need refill on monte lukast - Prostate-related Symptoms - Thyroid Dysfunction Patient Instructions - Continue current medication regimen in cluding Omeprazole, Levothyroxine, Losartan, and other prescribed medications. - Ensure to have labs drawn after checko ut for thyroid assessment. - Follow up as scheduled and contact the office if any new symptoms develop. Review of Systems - General: No fever no chills - Neurological: No headaches no dizziness - Ear nose throat: No sore throat no hearing difficulty no ear pain - Cardiovascular: No syncope, no chest pain, no palpitations - Gastrointestinal: No nausea vomiting or diarrhea - Endocrine: No polyuria polydipsia no heat intolerance - Genitourinary: No dysuria , no blood in urine Physical Exam - General: No acute distress - HEENT: No acute findings - Neck: Supple - Respiratory system: Able to talk in f ull sentences, no audible wheeze - Cardiovascular: S1-S2 regular in rate and rhythm - Gastrointestinal: No pain - Extremities: No new findings - CLAY WASHER: Alert awake oriented x3 motor se nsory intact - Skin: Normal turgor PFSH Medical History Palpitations Eczema of both external ears Major depression, recurrent Legally blind Asthma HTN (hypertension) Surgical History No pertinent past surgical history Social History Household Members: None Housing: House Do you presently have visiting nurse or other home services: Yes Alcohol intake: never Patient Tobacco Use Status: Former Tobacco user Tobacco use type: Cigarette Cigarettes Per Day: 2 e-Cigarette/Vaping Use: Never Used Second Hand Smoke Exposure: No service: No Current occupational status: disabled Cognitive needs: No Hearing needs: No Vision needs: 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) Questionnaire PHQ-9 Over the last 2 weeks, how often have you been bothered by any of the following problems? 1. Little interest or pleasure in doing things: not at all 2. Feeling down, depressed, or hopeless: not at all 3. Trouble falling or staying asleep, or sleeping too much: not at all 4. Feeling tired or having little energy: not at all 5. Poor appetite or overeating: not at all 6. Feeling bad about yourself - or that you are a failure or have let yourself or your family down: not at all 7. Trouble concentrating on things, such as reading the newspaper or watching te levision: not at all 8. Moving or speaking so slowly that other people could have noticed. Or the opposite - being so fidgety or restless that you have been moving around a lot more than usual: not at all 9. Thoughts that you would be better off or of hurting yourself in some way: not at all Total score: 0 Depression Screening Interpretation: Negative Depression Screening Done: Yes 08024 - PHQ-9 Billing: Yes Source: Developed by Drs. Tarun Chance, Bethany Saucedo, Rodriguez Martin and colleagues, with an educational chioma from [employer]. Thrive Questionnaire Date Thrive assessed: 12/04/24 I am a: Patient What is your living situation today?: I have a steady place to live Within the past 12 months, did the food you bought not last and you didn't have the money to get more?: Never true Within the past 12 months, did you worry whether your food would run out before you got money to buy more?: Never true Do you have trouble paying for medicines?: No Do you have trouble getting transportation to medical appointments?: No Do you have trouble paying your heating and electricity bill?: No Do you have trouble taking care of your child, family member or friend?: Yes Do you have trouble with day-to-day activities such as bathing, preparing meals, shopping, managing finances, etc.?: Yes Are you currently unemployed and looking for a job?: No Are you interested in more education?: No Please select the resources that you would like help with: None Currently or been in a relationship where the following occur: No concerns reported THRIVE Score: 0 AUDIT C Alcohol Use Questionnaire (AUDIT-C) 1. How often do you have a drink containing alcohol?: Never 3. How often do you have six or more drinks on one occasion?: Never Total Score: 0 Score Reviewed/Action Taken: Yes MINNIE-7 AMB Questionnaire MINNIE-7 Date MINNIE - 7 assessed: 12/04/24 Feeling nervous, anxious, or on edge: 0 = Not at all Not being able to stop or control worryin = Not at all Worrying too much about different things: 0 = Not at all Trouble relaxin = Not at all Being so restless that it is hard to sit still: 0 = Not at all Becoming easily annoyed or irritable: 0 = Not at all Feeling afraid as if something awful might happen: 0 = Not at all Total MINNIE-7 score (0-4 normal; 5-9 mild; 10-14 moderate; 15-21 severe): 0 Source: Developed by Drs. Tarun Chance, Bethany Saucedo, Rodriguez Martin and colleagues, with an educational chioma from [employer]. MINNIE-7 Assessment Billing MINNIE-7 Assessment Tool: MINNIE-7 Assessment 85723 Physical exam (Primary Care) Vital Signs: Last Vital Signs Pulse 90 12/04/24 09:05 BP 132/82 12/04/24 09:05 Pulse Ox 98 12/04/24 09:05 Oxygen Delivery Method Room Air 12/04/24 09:05 BMI result Body Mass Index 24.8 Tobacco/Smoking Status: Tobacco use Status Tobacco use date assessed 12/04/24 12/04/24 09:06 Patient Tobacco Use Status Former Tobacco user 12/04/24 09:06 Tobacco use type Cigarette 12/04/24 09:06 e-Cigarette/Vaping Use Never Used 12/04/24 09:06 PHQ-9: PHQ-9 Score PHQ-9: Total score 0 12/04/24 09:06 Depression Screening Interpretation: Negative Thrive Assessment: Date of Thrive Assessment Date Thrive assessed 12/04/24 12/04/24 09:06 Currently or been in a relationship where the following occur: No concerns reported Coding Level of Care Code Est Pt Level 4 (13490) Complex EM visit Add On G2211 Diagnoses Low TSH level R79.89 Hypertension, essential I10 Other specified hypothyroidism E03.8 Legally blind H54.8 Plantar fasciitis, bilateral M72.2 History of prostatectomy Z90.79 Additional Codes MINNIE-7 Assessment Billing - MINNIE-7 Assessment Tool: MINNIE-7 Assessment 19687 ([id number]) PHQ-9 - 23270 - PHQ-9 Billing: Yes ([id number]) Assessment & Plan Assessment & Plan (1) Low TSH level: Code(s): R79.89 - Other specified abnormal findings of blood chemistry Category: Medical (2) Hypertension, essential: Code(s): I10 - Essential (primary) hypertension Category: Medical (3) Other specified hypothyroidism: Code(s): E03.8 - Other specified hypothyroidism Category: Medical (4) Legally blind: Code(s): H54.8 - Legal blindness, as defined in [place] Category: Medical (5) Plantar fasciitis, bilateral: Code(s): M72.2 - Plantar fascial fibromatosis Category: Medical (6) History of prostatectomy: Code(s): Z90.79 - Acquired absence of other genital organ(s) Category: Surgical Plan History - The patient is a 64-year-old male who is legally blind, presenting with routine follow-up for chronic conditions. With his template checker - Hypertension: The patient's blood pressure is reportedly stable as of the last visit and during today's assessment. - Gastroesophageal Reflux Disease: The patient is taking Omeprazole 40 mg for management. - Prostate-related Symptoms: The patient denies any current issues with urination. - Thyroid Dysfunction: There was a noted deviation in thyroid function since the last evaluation. The patient is on Levothyroxine 112 mcg. Further investigation via labs is planned. - patient suffers from chronic plantar fasciitis and is taking gabapentin with good relief of pain Problem List - Hypertension - Gastroesophageal Reflux Disease - allergies stable, need refill on montelukast - Prostate-related Symptoms - Thyroid Dysfunction - chronic foot pain Patient Instructions - Continue current medication regimen including Omeprazole, Levothyroxine, Losartan, and other prescribed medications. - Ensure to have labs drawn after checkout for thyroid assessment. - Follow up as scheduled and contact the office if any new symptoms develop. Orders: Orders TSH reflex Free T4 Today R79.89 - Other specified abnormal findings of blood chemistry Medications: Refilled montelukast 10 mg PO DAILY 90 tabs 1RF
--- OUTSIDE RECORDS SUMMARY | 2024-12-04 09:27 | XMS_ITS | Clinical Summary ---
Author Organization [facility] Address [address] [place] [address] Care Team Providers Care Development Specialist Name Role Phone Unavailable Primary Care Provider [...] Plan of Treatment Not on file Insurance [place] MED[place] DENT[place]
== END 2024-12-04 11:55 | disposition home or self-care (01) ==
LOC: HO.HMCC 08:58
PROVIDERS: PCP Internal Medicine; Visit Provider Internal Medicine
DX: R79.89 Other specified abnormal findings of blood chemistry (principal); I10 Essential (primary) hypertension; E03.8 Other specified hypothyroidism; H54.8 Legal blindness, as defined in USA; M72.2 Plantar fascial fibromatosis; Z90.79 Acquired absence of other genital organ(s)

== ENCOUNTER 2024-12-04 08:57 | Outpatient (REF) | payer MEDICARE, MEDICAID, SELFPAY ==
--- OUTSIDE RECORDS SUMMARY | 2024-12-04 10:23 | XMS_ITS | Clinical Summary ---
Author Organization [facility] Address [address] [place] [address] Care Team Providers Care Oil Well Service Operator Name Role Phone Unavailable Primary Care Provider [...] Plan of Treatment Not on file Insurance [place]
[2024-12-04 14:10] LABS: TSH reflex Free T4 0.04 uIU/mL (0.32-4.0)
[2024-12-04 14:46] LABS: Free T4 (Free Thyroxine) 1.22 ng/dL (0.71-1.85)
== END 2024-12-04 08:58 | disposition home or self-care (01) ==
LOC: HO.HMGCLDS 08:57
PROVIDERS: PCP Internal Medicine; Visit Provider Internal Medicine
DX: R94.6 Abnormal results of thyroid function studies (principal); I10 Essential (primary) hypertension; E03.8 Other specified hypothyroidism; H54.8 Legal blindness, as defined in USA; M72.2 Plantar fascial fibromatosis; Z79.899 Other long term (current) drug therapy; Z90.79 Acquired absence of other genital organ(s)
CPT/HCPCS: 36415; 84439; 84443; 96127; 99212

== ENCOUNTER → 2024-12-30 23:59 | Outpatient (BNV) | payer MEDICARE, MEDICAID, SELFPAY | PROVIDERS: PCP Internal Medicine; Visit Provider Internal Medicine | DX: I10 Essential (primary) hypertension (principal); F33.1 Major depressive disorder, recurrent, moderate; R00.2 Palpitations; J45.998 Other asthma | CPT/HCPCS: G0179 ==

== ENCOUNTER 2025-03-04 08:41 | Outpatient (REF) | payer MEDICARE, MEDICAID, SELFPAY ==
--- OUTSIDE RECORDS SUMMARY | 2025-03-04 08:52 | XMS_ITS | Clinical Summary ---
Author Organization [facility] Address [address] [place] [address] Care Team Providers Care Mechanical Operator Name Role Phone Unavailable Primary Care [...] Plan of Treatment Not on file Insurance [place]
[2025-03-04 11:14] LABS: Prostate Specific Antigen 4.41 ng/mL (<0.05-4.0)
== END 2025-03-04 08:42 | disposition home or self-care (01) ==
LOC: HO.HMGCLDS 08:41
PROVIDERS: PCP Internal Medicine; Visit Provider Urology
DX: N41.2 Abscess of prostate (principal); N13.9 Obstructive and reflux uropathy, unspecified; R33.9 Retention of urine, unspecified
CPT/HCPCS: 36415; 84153

== ENCOUNTER 2025-03-10 10:44 | Outpatient (AMB) | payer MEDICARE, MEDICAID, SELFPAY ==
--- NOTE | 2025-03-10 10:54 | MHC.OFFVIS ---
Intake Visit Reasons: 6m/PSA/PVR Intake Note: Patient is present for 6m follow up/PSA/PVR Urology Medication:TAMSULOSIN,,FINASTERIDE,VITAMIN C Antibiotic Allergy:NONE Blood Thinner:NONE Paint Spraying Machine Operator Helper Required: No Allergies No Known Allergies (No Known Allergies*) Allergy (Verified 03/10/25 10:55) HPI Comments Details: Loni is a pleasant male. He is a patient of Dr. Bettencourt. He seen for the following urologic conditions - urinary retention with prostate abscess - lower urinary tract symptoms Six-month follow-up PSA 4.4 UA negative 12 month follow-up repeat lab work Prostatic abscess Prior admission to hospital with prostate abscess - 03/28 Bilateral hydronephrosis Urinary retention Greenlight procedure 06/28 for prostate abscess Failed voiding trial last month with readmission with pyelonephritis 04/28 [facility] Medical History Palpitations Eczema of both external ears Major depression, recurrent Legally blind Asthma HTN (hypertension) Surgical History No pertinent past surgical history Social History Household Members: None Housing: House Do you presently have visiting nurse or other home services: Yes Alcohol intake: never Patient Tobacco Use Status: Former Tobacco user Tobacco use type: Cigarette Cigarettes Per Day: 2 e-Cigarette/Vaping Use: Never Used Second Hand Smoke Exposure: No service: No Current occupational status: disabled Cognitive needs: No Hearing needs: No Vision needs: 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) Review of Systems Const Denies chills and Denies fever(s) Card Reports no additional complaints and Denies syncope Resp Denies cough GI Denies abdominal pain and Denies heartburn Reports as per HPI and Denies change in libido Neuro Denies syncope Psych Denies change in libido Endo Denies change in libido Physical Exam Const General: cooperative, healthy appearing, comfortable and no acute distress Orientation/consciousness: patient oriented x3 HEENT Face and sinus: Yes normal facial exam Mouth: moist mucous membranes Neck Neck: Yes normal visual inspection, Yes full ROM and Yes trachea midline Chest Chest palpation & inspection: normal inspection of the chest Resp Effort & Inspection: normal respiratory effort, able to speak in complete sentences and no respiratory distress GI Inspection: Yes normal to inspection Back/Spine/Pelvis Cervical Spine: normal cervical lordosis Thoracic/Lumbar Spine: thoracic and lumbar spine normal to inspection Skin General skin exam: no rashes or lesions noted Neuro General: patient oriented x3, gait normal, tone normal and moves all extremities Extrem General: Yes normal to inspection and Yes capillary refill normal Assessment & Plan Assessment & Plan (1) Urinary outflow obstruction: Code(s): N13.9 - Obstructive and reflux uropathy, unspecified Category: Medical (2) Prostatic abscess: Code(s): N41.2 - Abscess of prostate Category: Medical Plan Twelve month follow-up Remain on finasteride Medications: Refilled tamsulosin 0.4 mg PO DAILY 90 caps 3RF 90 days N13.9 - Obstructive and reflux uropathy, unspecified finasteride 5 mg PO DAILY 90 tabs 3RF 90 days N13.9 - Obstructive and reflux uropathy, unspecified Patient Instructions: This note is constructed using voice recognition software. While every effort has been made to ensure accuracy speck dyer errors may have been included. Imaging studies, laboratory and physical exam results were discussed and reviewed in detail. No major barriers to patient understanding were identified. An opportunity to ask questions regarding the treatment plan was provided. All questions were answered. The patient expressed understanding and agreement with the above treatment plan. The patient is aware they should contact our office by phone for worsening of their current condition or the appearance of new urologic symptoms. Compliance is encouraged with any medications and followup testing that is ordered. It is a privilege to participate in the urologic care of your patient. If you have any questions or concerns regarding treatment for the above conditions, or other urologic issues, please do not hesitate to contact me. The office telephone contact is [phone]. Sincerely, Dr Herbert Powers MD, [facility] - Urology Compassionate Specialist Care for the Genitourinary System Coding Level of Care Code Est Pt Level 3 (02411) Complex EM visit Add On G2211 Diagnoses Urinary outflow obstruction N13.9 Prostatic abscess N41.2
--- OUTSIDE RECORDS SUMMARY | 2025-03-10 11:27 | XMS_ITS | Clinical Summary ---
Author Organization [facility] Address [address] [place] [address] Care Team Providers Care Library Serials Assistant Name Role Phone Unavailable Primary Care Provider [...] Plan of Treatment Not on file Insurance [place]
== END 2025-03-10 11:08 | disposition home or self-care (01) ==
LOC: HO.HUSH 10:45
PROVIDERS: PCP Internal Medicine; Visit Provider Urology
DX: N13.9 Obstructive and reflux uropathy, unspecified (principal); N41.2 Abscess of prostate; R33.9 Retention of urine, unspecified
CPT/HCPCS: 99213; G2211

== ENCOUNTER → 2025-03-10 10:44 | Outpatient (BNVA) | payer MEDICARE, MEDICAID, SELFPAY | PROVIDERS: PCP Internal Medicine; Visit Provider Urology | DX: N13.9 Obstructive and reflux uropathy, unspecified (principal); N41.2 Abscess of prostate | CPT/HCPCS: 81003; 99212 ==

== ENCOUNTER → 2025-05-27 23:59 | Outpatient (BNV) | payer MEDICARE, MEDICAID, SELFPAY | PROVIDERS: PCP Internal Medicine; Visit Provider Internal Medicine | DX: I10 Essential (primary) hypertension (principal); F33.1 Major depressive disorder, recurrent, moderate; F41.9 Anxiety disorder, unspecified; R00.2 Palpitations | CPT/HCPCS: G0179 ==

== ENCOUNTER 2025-07-21 11:17 | Outpatient (REF) | payer MEDICARE, MEDICAID, SELFPAY ==
[2025-07-21 14:28] LABS: MANUAL DIFF FLAG NO
[2025-07-21 14:41] LABS: Hematocrit 44.5 % (42.0-52.0); Hemoglobin 14.7 g/dl (14.0-18.0); Imm Gran Abs Auto 0.02 X10*3/uL (0.00-0.03); Imm Gran Pct Auto 0.3 % (0.0-0.4); Lymphocytes Absolute Auto 1.6 X10*3/uL (1.2-4.9); Mean Corpuscular HGB Conc 33.0 g/dl (31.0-36.0); Mean Corpuscular Hemoglobin 30.8 pg (27.0-33.0); Mean Corpuscular Volume 93.3 fL (80.0-98.0); NRBC Abs Auto 0.000 X10*3/uL (0.0-0.012); NRBC Pct Auto 0.0 /100WBC (0.0-0.2); Platelet Count 301 X10*3/uL (160-400); Red Blood Count 4.77 X10*6/uL (4.60-5.80); White Blood Count 6.2 X10*3/uL (4.8-10.8)
[2025-07-21 16:07] LABS: Alanine Aminotransferase 21 U/L (0-40); Albumin Level 4.5 g/dL (3.5-5.0); Alkaline Phosphatase 63 U/L (39-117); Anion Gap 13 (12-20); Aspartate Amino Transferase 22 U/L (5-37); Blood Urea Nitrogen 15 mg/dL (9-16); Calcium 10.0 mg/dL (8.4-10.2); Carbon Dioxide 26 mmol/L (22-29); Chloride 106 mmol/L (96-108); Estimated Glomerular Filt Rate > 60; Potassium 3.6 mmol/L (3.3-5.1); Sodium 141 mmol/L (135-145); Total Protein 7.3 g/dL (6.5-8.0)
== END 2025-07-21 11:18 | disposition home or self-care (01) ==
LOC: HO.HMGCLDS 11:17
PROVIDERS: PCP Internal Medicine; Visit Provider Internal Medicine
DX: I10 Essential (primary) hypertension (principal); E03.8 Other specified hypothyroidism; H54.8 Legal blindness, as defined in USA; M72.2 Plantar fascial fibromatosis; G57.93 Unspecified mononeuropathy of bilateral lower limbs; Z90.79 Acquired absence of other genital organ(s)
CPT/HCPCS: 36415; 80053; 83721; 85025; 99212

== ENCOUNTER 2025-07-21 11:17 | Outpatient (AMB) | payer MEDICARE, MEDICAID, SELFPAY ==
[2025-07-21 11:23] VITALS: BP 132/74; PULSE 80; O2SAT 96; BMI 23.6
--- NOTE | 2025-07-21 11:23 | MHC.PC.OV ---
Vital Signs 07/21/25 11:23 Height 5 ft 8 in Weight 155 lb BMI 23.6 BP 132/74 Blood Pressure Location Lt brachial Position Sitting Pulse 80 Pulse Source Pulse Oximeter Pulse Oximetry (%) 96 Intake Visit Reasons: follow up Allergies No Known Allergies (No Known Allergies*) Allergy (Verified 07/21/25 11:23) Medication List - Last Reconciled 07/21/25 by Florecita Bettencourt MD ascorbic acid (vitamin C) 1 g PO DAILY 90 days calcium carbonate-vitamin D3 600 mg-10 mcg (400 unit) 1 tab PO BID cholecalciferol (vitamin D3) 50 mcg PO DAILY 90 days [Commode As directed] finasteride 5 mg PO DAILY 90 days gabapentin 300 mg PO TID losartan 50 mg PO DAILY montelukast 10 mg PO DAILY omeprazole 40 mg PO DAILY@0630 90 days [Shower chair w/back As directed] spironolactone 50 mg PO DAILY 90 days tamsulosin 0.4 mg PO DAILY 90 days tramadol 50 mg PO Q6H PRN Tobacco use date assessed: 12/04/24 Fall risk assessment: No Falls in past year Last assessed Fall Risk: 07/21/25 Dental Screening Dental Screen Date: 09/04/24 HPI HPI Comments History of Present Illness Details History of Present Illness The patient is a 64 year old male presenting for a follow-up visit for chronic condition management and medication review. Hypothyroidism: - The patient is followed by an rest room maid for his thyroid condition and was seen about two weeks ago. - His levothyroxine dose was recently decreased from 100 mcg to 75 mcg by his rest room maid. - He reports having labs for his thyroid drawn last week, and believes the results were good as the dose was lowered. - The rest room maid monitors his thyroid labs monthly. Hypertension: - The patient's blood pressure was 132/74 mmHg at the visit. - He is taking losartan for his blood pressure. Skin Rash: - The patient reports a history of a rash on his side, for which he was previously prescribed a cream. - He is requesting a refill for the cream. Chronic Condition Management: - The patient is legally blind and attends visits with a psychiatric technician assistant. - The psychiatric technician assistant assists with medication management, including filling his pill box. - The patient is also being treated for allergies with montelukast, acid reflux with omeprazole, and takes gabapentin three times a day, vitamin D, and spironolactone. - He is also under the care of a urologist and takes medication from that provider. - He was unable to name his current medications during the visit. Medical History: - Hypothyroidism, managed by endocrinology - Hypertension - Allergic rhinitis - Gastroesophageal reflux disease - Unspecified urologic condition, managed by urology - Legal blindness - History of skin rash Medications: - Vitamin D - Gabapentin, taken three times a day - Levothyroxine 75 mcg for hypothyroidism (dose recently decreased from 100 mcg) - Losartan - Montelukast for allergies - Omeprazole for acid reflux - Spironolactone - Unspecified medication from a urologist [facility] Medical History Palpitations Eczema of both external ears Major depression, recurrent Legally blind Asthma HTN (hypertension) Surgical History No pertinent past surgical history Social History Household Members: None Housing: House Do you presently have visiting nurse or other home services: Yes Alcohol intake: never Patient Tobacco Use Status: Former Tobacco user Tobacco use type: Cigarette Cigarettes Per Day: 2 e-Cigarette/Vaping Use: Never Used Second Hand Smoke Exposure: No service: No Current occupational status: disabled Cognitive needs: No Hearing needs: No Vision needs: 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) Questionnaire Thrive Questionnaire Date Thrive assessed: 09/04/24 I am a: Patient What is your living situation today?: I have a steady place to live Within the past 12 months, did the food you bought not last and you didn't have the money to get more?: Never true Within the past 12 months, did you worry whether your food would run out before you got money to buy more?: Never true Do you have trouble paying for medicines?: No Do you have trouble getting transportation to medical appointments?: No Do you have trouble paying your heating and electricity bill?: No Do you have trouble taking care of your child, family member or friend?: Yes Do you have trouble with day-to-day activities such as bathing, preparing meals, shopping, managing finances, etc.?: Yes Are you currently unemployed and looking for a job?: No Are you interested in more education?: No Please select the resources that you would like help with: None Currently or been in a relationship where the following occur: No concerns reported THRIVE Score: 0 MINNIE-7 AMB Questionnaire MINNIE-7 Date MINNIE - 7 assessed: 12/04/24 Source: Developed by Drs. Tarun Chance, Bethany Saucedo, Rodriguez Martin and colleagues, with an educational chioma from [employer]. Review of Systems Narrative Review of Systems - General: No fever no chills - Neurological: No headaches no dizziness - Ear nose throat: No sore throat no hearing difficulty no ear pain - Cardiovascular: No syncope, no chest pain, no palpitations - Gastrointestinal: No nausea vomiting or diarrhea - Endocrine: No polyuria polydipsia no heat intolerance - Genitourinary: No dysuria , no blood in urine Physical exam (Primary Care) Vital Signs: Last Vital Signs Pulse 80 07/21/25 11:23 BP 132/74 07/21/25 11:23 Pulse Ox 96 07/21/25 11:23 BMI result Body Mass Index 23.6 Tobacco/Smoking Status: Tobacco use Status Tobacco use date assessed 12/04/24 07/21/25 11:25 Patient Tobacco Use Status Former Tobacco user 07/21/25 11:25 Tobacco use type Cigarette 07/21/25 11:25 e-Cigarette/Vaping Use Never Used 07/21/25 11:25 Thrive Assessment: Date of Thrive Assessment Date Thrive assessed 09/04/24 07/21/25 11:25 Currently or been in a relationship where the following occur: No concerns reported Narrative Physical Exam General: No acute distress HEENT: No acute findings, Blind Neck: Supple Respiratory system: Able to talk in full sentences, no audible wheeze Cardiovascular: S1-S2 regular in rate and rhythm Gastrointestinal: No pain Extremities: No new findings [employer]ER: Alert awake oriented x3 motor intact Coding Level of Care Code Est Pt Level 4 (22891) Add On Problem Visit Only Diagnoses Hypertension, essential I10 Other specified hypothyroidism E03.8 Legally blind H54.8 Plantar fasciitis, bilateral M72.2 Peripheral neuritis of both feet G57.93 History of prostatectomy Z90.79 Assessment & Plan Assessment & Plan (1) Hypertension, essential: Code(s): I10 - Essential (primary) hypertension Category: Medical (2) Other specified hypothyroidism: Code(s): E03.8 - Other specified hypothyroidism Category: Medical (3) Legally blind: Code(s): H54.8 - Legal blindness, as defined in [place] Category: Medical (4) Plantar fasciitis, bilateral: Code(s): M72.2 - Plantar fascial fibromatosis Category: Medical (5) Peripheral neuritis of both feet: Code(s): G57.93 - Unspecified mononeuropathy of bilateral lower limbs Category: Medical (6) History of prostatectomy: Code(s): Z90.79 - Acquired absence of other genital organ(s) Category: Surgical Plan Problem List - Hypertension - Hypothyroidism - Skin rash - Allergic rhinitis - Gastroesophageal reflux disease - BPH - Legal blindness - Neuropathic pain in feet Plan - An order for blood tests, including electrolytes, kidney function, and liver enzymes, will be placed for the patient to complete today. - Thyroid function tests will not be ordered as this is being managed by his rest room maid. - A refill for the topical rash cream will be sent. - The patient is to continue his current medications. - The patient and his psychiatric technician assistant were instructed to bring a written list of all medications, dosages, and prescribing doctors to the next appointment for reconciliation. - The patient is to book his next follow-up appointment. november Orders: Orders Comprehensive Met. Panel Today Florecita Bettencourt MD I10 - Essential (primary) hypertension Complete Blood Count Auto Diff Today Florecita Bettencourt MD I10 - Essential (primary) hypertension LDL Cholesterol Direct Today Florecita Bettencourt MD I10 - Essential (primary) hypertension Medications: New levothyroxine (Synthroid) 75 mcg PO DAILY
== END 2025-07-21 11:44 | disposition home or self-care (01) ==
LOC: HO.HMCC 11:18
PROVIDERS: PCP Internal Medicine; Visit Provider Internal Medicine
DX: I10 Essential (primary) hypertension (principal); E03.8 Other specified hypothyroidism; H54.8 Legal blindness, as defined in USA; M72.2 Plantar fascial fibromatosis; G57.93 Unspecified mononeuropathy of bilateral lower limbs; Z90.79 Acquired absence of other genital organ(s)